=== PATIENT | female | born 1945 | race Caucasian/White ===

== ENCOUNTER 2023-04-10 10:23 | Outpatient (OUT) | payer MEDICARE, SELFPAY ==
--- NOTE | 2023-04-10 10:33 | PM.CN ---
Consult Note: HPI Data of Consult Patient: known to practice within the last 3 years Requesting Physician: Melissa Soni NP Primary Care Provider: Patricia Nicolas MD Consult Narrative Reason for consult: chronic low back and bilateral SIJ pain Narrative: Arianne turpin pleasant 77 year old female presents today for follow up on chronic low back pain, previously managed by Dr Smith. Patient was previously on duloxetine, baclofen, tramadol, R SIJ injections, and lumbar ESIs for pain management. 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 Patient would like to discuss her medication regimen and injection therapy. cc:: CC: Melissa Soni NP Review of Systems ROS Status of ROS 10 or more systems reviewed and unremarkable except as noted in history and below Musculoskeletal Reports: back pain and other (muscle spasms) Exam Constitutional Documenting provider has reviewed patient's vital signs: yes Common normals: no apparent distress, average body habitus, oriented x3, healthy appearing, alert and well nourished General appearance: cooperative HENMT Common normals: normocephalic, hearing grossly normal bilaterally and moist oral mucous membranes Head and scalp: normocephalic Eye Common normals: PERRL Pupil: PERRL Neck & C-Spine Common normals: full ROM General: normal visual inspection Chest Common normals: inspection of chest normal Respiratory Common normals: normal respiratory effort, no retractions and no use of accessory muscles Back & Pelvis Lumbar spine/lower back: ROM limited, pain with ROM and straight leg raise positive right Sacroiliac joints: SI joint(s) abnormal (bilateral positive DEVON, thigh thrust, stephanie test. Worse on right side. ) SI joint details: tender to palpation (R>L) Other: radiculopathy to RLE Extremity Common normals: full ROM Neuro Common normals: oriented x3, CN's II-XII intact bilaterally, moves all extremities, no focal motor deficits, no sensory deficits noted and deep tendon reflexes 2+ bilaterally Sensorium/orientation: alert Gait (neuro): antalgic Motor exam: strength 5/5 throughout and no movement abnormalities noted Psych Common normals: mental status grossly normal, thought process normal, cooperative, affect normal, speech normal and activity/motor behavior normal Speech: normal speech Thought process: normal thought process Results Additional Findings Additional findings: I have checked an OARRS report on this patient today and there are no aberrancies noted in the prescribing history.?? A drug screen was completed and reviewed within the last year, and if there has not been a drug screen completed we ordered one today to monitor higher risk, state monitored pain medication use. As part of providing excellent, safe, comprehensive care, the following was completed at our patient's visit: 1. A medication reconciliation and review to ensure accurate knowledge of current/active medications, including asking our patients to inform us about any [id number] medications or herbal remedies/nutritional supplements/alternative remedies. 2. A review to specifically ensure our patients have had annual screening for: elevated body mass index (BMI), tobacco use, screening for depression, and screening for unhealthy alcohol use. When screening is concerning, patients are provided with education and the specific recommendation to discuss the concerning health issue and treatment options with their primary care provider. MINA 42% with moderate pain, pain that prevents her from lifting heavy weights, pain that prevents her walking more than 0.5 miles, pain that prevents her from sitting more than 30mins, pain that prevents her from standing longer than 10 minutes, pain that restricts social life. 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 Will evaluate at follow up appointments update yearly UDS today order water therapy, previously benefited from continue home exercise program follow up after injections
== END 2023-04-10 10:24 | disposition home or self-care (01) ==
LOC: PM 10:25
PROVIDERS: PCP Family Medicine; Visit Provider Nurse Practitioner
DX: M47.26 Other spondylosis with radiculopathy, lumbar region (principal); M43.8X6 Other specified deforming dorsopathies, lumbar region; M46.1 Sacroiliitis, not elsewhere classified; M81.0 Age-related osteoporosis without current pathological fracture; Z79.899 Other long term (current) drug therapy; M62.838 Other muscle spasm
CPT/HCPCS: 72110; G0463

== ENCOUNTER 2023-04-10 11:15 | Outpatient (OUT) | payer MEDICARE, SELFPAY ==
--- NOTE | 2023-04-10 11:22 | XR_ITS ---
[address] [address] Patient Name: LOBO MURDOCK MRN: [id number] date: 1945 Sex: F Assigned Patient Location: [facility] Current Patient Location: [facility] Accession/Order Number: [id number] Exam Date: 04/10/2023 11:30 Report Date: 04/10/2023 11:59 At the request of: DANIELA FARLEY Procedure: XR lumbar spine min 4V EXAM: XR lumbar spine min 4V HISTORY: Lumbar spondylosis, lumbar radiculopathy COMPARISON: None. TECHNIQUE: 4 views FINDINGS/IMPRESSION: Mild S-shaped convex curvature of the lumbar spine. Anterolisthesis of L4 over L5 by 6 mm. Mild compression deformity of L2 vertebral body. Remainder of the vertebral body heights maintained. Multilevel endplate degenerative changes, disc disease, and facet arthropathy of L3-S1. Nonobstructive bowel gas pattern. Electronically authenticated by: BRITTNEY DAWN Date: 04/10/2023 11:59
== END 2023-04-10 11:16 | disposition home or self-care (01) ==
LOC: RAD 11:17
PROVIDERS: PCP Family Medicine; Visit Provider Nurse Practitioner
DX: M47.26 Other spondylosis with radiculopathy, lumbar region (principal); M43.8X6 Other specified deforming dorsopathies, lumbar region
CPT/HCPCS: 72110

== ENCOUNTER 2023-04-22 09:10 | Day surgery (SDC) | payer MEDICARE, SELFPAY ==
[2023-04-22 10:14] VITALS: BP 138/76; PULSE 80; RESP 14; TEMP 36.8; O2SAT 97
[2023-04-22] MEDS: IOHEXOL 240 MG/ML - 10 ML VIAL 75 MG INJ (10:50)
[2023-04-22] MEDS: TRIAMCINOLONE ACETONIDE 40 MG/ML VIAL INJ (10:50)
[2023-04-22] MEDS: BUPIVACAINE HCL 0.25% PF 25 MG/10 ML VIAL INJ (10:50)
--- NOTE | 2023-04-22 10:52 | W.PM.PROCNOT ---
Date of procedure: 04/22/23 Pre-op diagnosis: Right sacroiliac joint pain Post-op diagnosis: same as pre-op Procedure: Procedure: Block of the nerve innervating the right sacroiliac joint Medications: Bupivacaine 0.25% 3cc, kenalog 80mg After informed consent was obtained, the patient was brought to the medical procedure unit and placed in the prone position, when a timeout was completed verifying correct patient, procedure, site, positioning, implant, and/or special equipment.? The skin overlying the area was prepped and draped in standard sterile fashion using alcohol.? A 25-gauge needle was inserted towards the right nerve innervating the sacroiliac joint under direct fluoroscopic imaging.? Needle tip was advanced until the nerve was encountered.? We instilled a total of 3 mL of solution.? Postoperatively needles were removed.? The patient tolerated the procedure well without complication.? The patient reported reduction in pain symptoms postoperatively. Anesthesia: Local Surgeon: Ara Maier Pathology: none sent Condition: stable Disposition: no change
[2023-04-23 11:12] VITALS: BP 124/57; BP 151/65; PULSE 77; PULSE 86; RESP 18; O2SAT 95; O2SAT 96
== END 2023-04-22 10:57 | disposition home or self-care (01) ==
PROVIDERS: PCP Family Medicine; Visit Provider Anesthesiology
DX: M53.3 Sacrococcygeal disorders, not elsewhere classified (principal)
CPT/HCPCS: 64451; 77002; Q9966

== ENCOUNTER 2023-05-01 07:47 | Outpatient (RCR) | payer MEDICARE, SELFPAY ==
[2023-04-30 11:16] LABS: Calcium 9.5 mg/dL (8.5-10.1); Estimated GFR (African America >60 (>=60); Estimated GFR (Non-African Ame 51 (>=60)
[2023-05-01 09:29] VITALS: BP 123/76; PULSE 90; RESP 16; TEMP 36.7; O2SAT 97
[2023-05-01] MEDS: DENOSUMAB 60 MG/ML SYRINGE SUBQ (09:47)
== END 2023-05-11 23:59 | disposition home or self-care (01) ==
LOC: LAB 07:47
PROVIDERS: PCP Family Medicine; Visit Provider Family Medicine
DX: M81.0 Age-related osteoporosis without current pathological fracture (principal)
CPT/HCPCS: 36415; 82310; 82565; 96372; J0897

== ENCOUNTER 2023-05-06 09:55 | Day surgery (SDC) | payer MEDICARE, SELFPAY ==
[2023-05-06 10:45] VITALS: BP 114/68; PULSE 85; RESP 16; TEMP 36.3; O2SAT 97
[2023-05-06 11:33] VITALS: BP 127/63; PULSE 83; RESP 18; O2SAT 94
[2023-05-06] MEDS: LIDOCAINE HCL 2% PF 100 MG/5 ML VIAL INJ (11:34)
[2023-05-06] MEDS: BUPIVACAINE HCL 0.25% PF 25 MG/10 ML VIAL INJ (11:34)
[2023-05-06] MEDS: IOHEXOL 240 MG/ML - 10 ML VIAL IV (11:34)
[2023-05-06] MEDS: TRIAMCINOLONE ACETONIDE 40 MG/ML VIAL INJ (11:35)
[2023-05-06] MEDS: 0.9 % SODIUM CHLORIDE 10 ML INJ (11:36)
[2023-05-06 11:37] VITALS: BP 131/63; PULSE 85; RESP 18; O2SAT 95
--- NOTE | 2023-05-06 11:38 | W.PM.PROCNOT ---
Date of procedure: 05/06/23 Pre-op diagnosis: Lumbar stenosis with neurogenic claudication Post-op diagnosis: same as pre-op Procedure: Procedure: Lumbar epidural steroid injection, L3-4 Medications: Bupivacaine 0.25% 1cc, normal saline 0.9% 1cc, kenalog 80mg After informed consent was obtained, the patient was brought to the medical procedure unit and placed in the prone position.? The skin overlying the area was prepped and draped in standard sterile fashion using alcohol, after which a 25-gauge needle was used to raise a skin wheal with 2% lidocaine over the appropriately designated interspace identified under fluoroscopy.? Subsequently a 17-gauge Tuohy needle was inserted through anesthetized area and directed toward the above interspace under fluoroscopic guidance, which was identified with loss of resistance technique to air.? Needle tip placement was confirmed by injection of Omnipaque dye, which revealed epidural placement; then 4 mL of steroid solution was then instilled.? Postoperatively, needles were removed.? The patient was transferred to the recovery area in stable condition to be discharged after meeting criteria.? Followup as per treatment plan. Anesthesia: Local Surgeon: Ara Maier Pathology: none sent Condition: stable Disposition: no change
== END 2023-05-06 11:40 | disposition home or self-care (01) ==
PROVIDERS: PCP Family Medicine; Visit Provider Anesthesiology
DX: M48.062 Spinal stenosis, lumbar region with neurogenic claudication (principal)
CPT/HCPCS: 62323; Q9966

== ENCOUNTER 2023-05-29 10:05 | Outpatient (OUT) | payer MEDICARE, SELFPAY ==
--- NOTE | 2023-05-29 10:15 | P.CN_ITS ---
Consult Note: HPI Data of Consult Patient: known to practice within the last 3 years Consult date: 05/29/23 Requesting Physician: Melissa Soni NP Primary Care Provider: Patricia Nicolas MD Consult Narrative Reason for consult: Injection F/u Narrative: Arianne Ko a pleasant 77 year old female presents for evaluation of chronic back pain with NC and right SIJ pain. Recently underwent Right SIJ injection and Lumbar epidural steroid injection at L3-4 with 75% pain relief and functional improvement. Today rating pain 3/10. cc:: CC: Melissa Soni NP Review of Systems ROS Status of ROS 10 or more systems reviewed and unremarkable except as noted in history and below Musculoskeletal Reports: back pain and joint pain PFSH PFSH Medical History Acid reflux ?K21.9 - Gastro-esophageal reflux disease without esophagitis (ICD-10) Heartburn ?R12 - Heartburn (ICD-10) Low back pain ?M54.50 - Low back pain, unspecified (ICD-10) Neck pain ?M54.2 - Cervicalgia (ICD-10) Osteoarthritis ?M19.90 - Unspecified osteoarthritis, unspecified site (ICD-10) Osteopenia ?M85.80 - Other specified disorders of bone density and structure, unspecified site (ICD-10) Surgical History H/O carpal tunnel repair ?Z98.890 - Other specified postprocedural states (ICD-10) H/O section ?Z98.891 - History of uterine scar from previous surgery (ICD-10) H/O shoulder surgery ?Z98.890 - Other specified postprocedural states (ICD-10) H/O wrist surgery ?Z98.890 - Other specified postprocedural states (ICD-10) History of ear, nose, and throat (ENT) surgery ?Z98.890 - Other specified postprocedural states (ICD-10) Meds Home Medications and Allergies Home Medications Medication Instructions Recorded Confirmed Type OSCAL WITH VITAMIN D3 PO BID 04/10/23 History baclofen 10 mg tablet 10 mg PO .HS 04/10/23 05/06/23 History denosumab 60 mg/mL subcutaneous 60 mg subcut .[id number] 04/10/23 05/06/23 History syringe (Prolia) diclofenac sodium 50 mg 50 mg PO BID 04/10/23 05/06/23 History tablet,delayed release duloxetine 30 mg capsule,delayed 30 mg PO QDAY 04/10/23 05/06/23 History release geriatric multivitamin-min cap PO BID 04/10/23 History lidocaine 5 % topical cream 1 applic topical TID PRN pain 04/10/23 05/06/23 History magnesium 200 mg tablet 400 mg PO BID 04/10/23 05/06/23 History omega 1-wnq-sbj-fish oil 1,000 mg 1 cap PO DAILY 04/10/23 05/06/23 History (120 mg-180 mg) capsule (Fish Oil) tramadol 50 mg tablet 50 mg PO BID PRN pain 04/10/23 05/06/23 History Allergies Allergy/AdvReac Type Severity Reaction Status Date / Time No Known Drug Allergies Allergy Verified 05/06/23 10:43 Exam Constitutional Documenting provider has reviewed patient's vital signs: yes Common normals: no apparent distress, oriented x3, healthy appearing, alert and well nourished General appearance: cooperative HENNE Common normals: normocephalic, hearing grossly normal bilaterally and moist oral mucous membranes Head and scalp: normocephalic Eye Common normals: PERRL Pupil: PERRL Neck & C-Spine Common normals: full ROM General: normal visual inspection Chest Common normals: inspection of chest normal Respiratory Common normals: normal respiratory effort, no retractions and no use of accessory muscles Back & Pelvis Lumbar spine/lower back: ROM limited and pain with ROM Sacroiliac joints: SI joint(s) abnormal (bilateral positive DEVON, thigh thrust, stephanie test. Worse on right side. ) SI joint details: tender to palpation (R>L) Extremity Common normals: full ROM Neuro Common normals: oriented x3, CN's II-XII intact bilaterally, moves all extremities, no focal motor deficits, no sensory deficits noted and deep tendon reflexes 2+ bilaterally Sensorium/orientation: alert Gait (neuro): antalgic Motor exam: strength 5/5 throughout and no movement abnormalities noted Psych Common normals: mental status grossly normal, thought process normal, cooperative, affect normal, speech normal and activity/motor behavior normal Speech: normal speech Thought process: normal thought process Results Additional Findings Additional findings: I have checked an OARRS report on this patient today and there are no aberrancies noted in the prescribing history.?? A drug screen was completed and reviewed within the last year, and if there has not been a drug screen completed we ordered one today to monitor higher risk, state monitored pain medication use. As part of providing excellent, safe, comprehensive care, the following was completed at our patient's visit: 1. A medication reconciliation and review to ensure accurate knowledge of current/active medications, including asking our patients to inform us about any xqpm-juv-myesppj medications or herbal remedies/nutritional sup plements/alternative remedies. 2. A review to specifically ensure our patients have had annual screening for: elevated body mass index (BMI), tobacco use, screening for depression, and screening for unhealthy alcohol use. When screening is concerning, patients are provided with education and the specific recommendation to discuss the concerning health issue and treatment options with their primary care provider. Assessment and Plan Assessment and Plan (1) Lumbar radiculopathy: Assessment and Plan: improved after MONSTER (2) Bilateral sacroiliitis: Assessment and Plan: continues to have right SIJ injection (3) Lumbar spondylosis: (4) Chronically on opiate therapy: Assessment and Plan: PRN tramadol without side effects (5) Muscle spasm: Plan increase duloxetine to 60mg QHS continue PRN tramadol and diclofenac continue baclofen 10mg once daily PRN patient did test positive for THC on drug screen, reports she using THC cream to hips and SIJ joints with benefit. Will not increase tramadol dose in the future without cessation of THC products f/u 6 weeks to evaluate duloxetine increase
== END 2023-05-29 10:06 | disposition home or self-care (01) ==
LOC: PM 10:06
PROVIDERS: PCP Family Medicine; Visit Provider Nurse Practitioner
DX: M54.16 Radiculopathy, lumbar region (principal); M46.1 Sacroiliitis, not elsewhere classified; M47.9 Spondylosis, unspecified; Z79.891 Long term (current) use of opiate analgesic; R25.2 Cramp and spasm
CPT/HCPCS: G0463

== ENCOUNTER 2023-07-15 12:19 | Outpatient (OUT) | payer MEDICARE, SELFPAY ==
[2023-07-15 12:32] LABS: Basophils Absolute Auto 0.1 10^3/uL (0.0-0.1); Eosinophils Absolute Auto 0.2 10^3/uL (0.0-0.7); Eosinophils Percent Auto 2.7 % (0.9-7.0); Hematocrit 38.3 % (36.0-48.0); Hemoglobin 12.5 g/dL (12.0-16.0); Immature Granulocytes Abs Auto 0.03 10^3/uL (0.00-0.03); Immature Granulocytes Pct Auto 0.5 % (0.0-0.5); Lymphocytes Absolute Auto 1.6 10^3/uL (1.2-3.8); Mean Corpuscular HGB Conc 32.6 g/dL (29.9-35.2); Mean Corpuscular Hemoglobin 32.1 pg (26.7-34.0); Mean Corpuscular Volume 98.2 fL (81.0-99.0); Mean Platelet Volume 9.5 fL (9.5-13.5); Monocytes Absolute Auto 0.7 10^3/uL (0.3-0.8); Neutrophils Absolute Auto 3.7 10^3/uL (1.4-6.5); Neutrophils Percent Auto 59.8 % (43.0-75.0); Platelet Count 273 10^3/uL (150-450); Red Cell Distribution Width 12.6 % (11.0-15.0); White Blood Count 6.2 10^3/uL (4.0-11.0)
[2023-07-15 12:41] LABS: Anion Gap 12.2; BUN Creatinine Ratio 19.1; Calcium 9.7 mg/dL (8.5-10.1); Carbon Dioxide 28.5 mmol/L (21.0-32.0); Chloride 105 mmol/L (98-107); Estimated GFR (African America >60 (>=60); Estimated GFR (Non-African Ame >60 (>=60); Glucose 86 mg/dL (74-106); Potassium 3.7 mmol/L (3.5-5.1); Sodium 142 mmol/L (136-145)
== END 2023-07-15 12:20 | disposition home or self-care (01) ==
LOC: LAB 12:20
PROVIDERS: PCP Family Medicine; Visit Provider Family Medicine
DX: K52.9 Noninfective gastroenteritis and colitis, unspecified (principal)
CPT/HCPCS: 36415; 80048; 85025

== ENCOUNTER 2023-07-24 11:02 | Outpatient (OUT) | payer MEDICARE, SELFPAY ==
--- NOTE | 2023-07-24 11:52 | PM.CN ---
Consult Note: HPI Data of Consult Patient: known to practice within the last 3 years Consult date: 05/29/23 Requesting Physician: Melissa Soni NP Primary Care Provider: Patricia Nicolas MD Consult Narrative Reason for consult: f/u Narrative: Arianne Ko a pleasant 77 year old female presents for evaluation of chronic right SIJ pain. Today pain is 4-5/10, unfortunately previous injection did not provide sustained relief. She has not noticed any benefit from increase in duloxetine, sparingly utilizes tramadol, finds benefit from baclofen and diclofenac. cc:: CC: Melissa Soni NP Review of Systems ROS Status of ROS 10 or more systems reviewed and unremarkable except as noted in history and below Musculoskeletal Reports: back pain and joint pain PFSH PFSH Medical History Acid reflux ?K21.9 - Gastro-esophageal reflux disease without esophagitis (ICD-10) Heartburn ?R12 - Heartburn (ICD-10) Low back pain ?M54.50 - Low back pain, unspecified (ICD-10) Neck pain ?M54.2 - Cervicalgia (ICD-10) Osteoarthritis ?M19.90 - Unspecified osteoarthritis, unspecified site (ICD-10) Osteopenia ?M85.80 - Other specified disorders of bone density and structure, unspecified site (ICD-10) Surgical History H/O shoulder surgery ?Z98.890 - Other specified postprocedural states (ICD-10) History of ear, nose, and throat (ENT) surgery ?Z98.890 - Other specified postprocedural states (ICD-10) H/O carpal tunnel repair ?Z98.890 - Other specified postprocedural states (ICD-10) H/O wrist surgery ?Z98.890 - Other specified postprocedural states (ICD-10) H/O section ?Z98.891 - History of uterine scar from previous surgery (ICD-10) Meds Home Medications and Allergies Home Medications Medication Instructions Recorded Confirmed Type OSCAL WITH VITAMIN D3 PO BID 04/10/23 History baclofen 10 mg tablet 10 mg PO .HS 04/10/23 05/06/23 History denosumab 60 mg/mL subcutaneous 60 mg subcut .[id number] 04/10/23 05/06/23 History syringe (Prolia) diclofenac sodium 50 mg 50 mg PO BID 04/10/23 05/06/23 History tablet,delayed release duloxetine 30 mg capsule,delayed 30 mg PO QDAY 04/10/23 05/06/23 History release geriatric multivitamin-min cap PO BID 04/10/23 History lidocaine 5 % topical cream 1 applic topical TID PRN pain 04/10/23 05/06/23 History magnesium 200 mg tablet 400 mg PO BID 04/10/23 05/06/23 History omega 1-lra-qzr-fish oil 1,000 mg 1 cap PO DAILY 04/10/23 05/06/23 History (120 mg-180 mg) capsule (Fish Oil) tramadol 50 mg tablet 50 mg PO BID PRN pain 04/10/23 05/06/23 History Allergies Allergy/AdvReac Type Severity Reaction Status Date / Time No Known Drug Allergies Allergy Verified 05/06/23 10:43 Exam Constitutional Documenting provider has reviewed patient's vital signs: yes Common normals: no apparent distress, oriented x3, healthy appearing, alert and well nourished General appearance: cooperative HENMT Common normals: normocephalic, hearing grossly normal bilaterally and moist oral mucous membranes Head and scalp: normocephalic Eye Common normals: PERRL Pupil: PERRL Neck & C-Spine Common normals: full ROM General: normal visual inspection Chest Common normals: inspection of chest normal Respiratory Common normals: normal respiratory effort, no retractions and no use of accessory muscles Back & Pelvis Lumbar spine/lower back: ROM limited and pain with ROM Sacroiliac joints: SI joint(s) abnormal (bilateral positive DEVON, thigh thrust, stephanie test. Worse on right side. ) SI joint details: tender to palpation (R>L) Extremity Common normals: full ROM Neuro Common normals: oriented x3, CN's II-XII intact bilaterally, moves all extremities, no focal motor deficits, no sensory deficits noted and deep tendon reflexes 2+ bilaterally Sensorium/orientation: alert Gait (neuro): antalgic Motor exam: strength 5/5 throughout and no movement abnormalities noted Psych Common normals: mental status grossly normal, thought process normal, cooperative, affect normal, speech normal and activity/motor behavior normal Speech: normal speech Thought process: normal thought process Assessment and Plan Assessment and Plan (1) Sacroiliac joint dysfunction of right side: (2) Sacroiliac joint pain: (3) Muscle spasm: (4) Chronically on opiate therapy: (5) Lumbar spondylosis: Plan decrease duloxetine to 30mg daily, will stop next month as she has not found benefit from this medication continue PRN tramadol 50mg for moderate to severe pain continue HEP, to start aquatherapy soon right sacral/SIJ xray refferal for consideration of SIJ fusion to Dr Nicolas 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
== END 2023-07-24 11:03 | disposition home or self-care (01) ==
LOC: PM 11:14
PROVIDERS: PCP Family Medicine; Visit Provider Nurse Practitioner
DX: M46.1 Sacroiliitis, not elsewhere classified (principal); M53.3 Sacrococcygeal disorders, not elsewhere classified; M62.838 Other muscle spasm; Z79.891 Long term (current) use of opiate analgesic; M47.816 Spondylosis without myelopathy or radiculopathy, lumbar region
CPT/HCPCS: 72202; G0463

== ENCOUNTER 2023-07-24 12:07 | Outpatient (OUT) | payer MEDICARE, SELFPAY ==
--- NOTE | 2023-07-24 12:14 | XR_ITS ---
The [address] [address] Patient Name: LOBO MURDOCK MRN: [id number] date: 1945 Sex: F Assigned Patient Location: [facility] Current Patient Location: [facility] Accession/Order Number: [id number] Exam Date: 07/24/2023 12:16 Report Date: 07/25/2023 13:49 At the request of: DANIELA FARLEY Procedure: XR sacroiliac joint JAMISON EXAM: XR sacroiliac joint JAMISON HISTORY: sacroiliitis COMPARISON: 04/10/2023 TECHNIQUE: 3 views of the sacrum FINDINGS: No acute displaced fracture or dislocation identified. Mild joint space narrowing is present bilaterally. No significant subchondral sclerosis identified bilaterally. The hips appear congruent. Moderate to severe degenerative disc disease the visualized lower lumbar spine. XR/XR sacroiliac joint JAMISON IMPRESSION: Degenerative changes without acute osseous abnormality. Electronically authenticated by: RICARDO HEART Date: 07/25/2023 13:49
== END 2023-07-24 12:08 | disposition home or self-care (01) ==
LOC: RAD 12:09
PROVIDERS: PCP Family Medicine; Visit Provider Nurse Practitioner
DX: M46.1 Sacroiliitis, not elsewhere classified (principal)
CPT/HCPCS: 72202

== ENCOUNTER 2023-08-22 08:00 | Outpatient (OUT) | payer MEDICARE, SELFPAY ==
--- OUTSIDE RECORDS SUMMARY | 2023-08-22 08:03 | XMS_ITS | CCD ---
Author Name Unknown Address [address] [place] [address] Organization [facility] Care Team Providers Care Baker Biscuit Name Role Phone PHYSICIAN, DEFAULT Admitting Unavailable PHYSICIAN, DEFAULT Attending Unavailable ALT-DANIEL, BRINDA Primary Care Unavailable OVIDIO, ARIADNA Cook Admitting Unavailable OVIDIO, ARIADNA Cook Attending Unavailable ALT-DANIEL, BRINDA Referring Unavailable ALT-DANIEL, BRINDA Primary Care Unavailable MATTHEWS ., DR MASSIMO Cook Attending Unavailable SALDAÑA ., MICHELE Consulting Unavailable STANFORD, DR PATRICIA Crain Primary Care Unavailable MATTHEWS ., DR MASSIMO Cook Admitting Unavailable MATTHEWS ., DR MASSIMO Cook Attending Unavailable MATTHEWS ., DR MASSIMO Cook Admitting Unavailable STANFORD, DR PATRICIA Crain Primary Care Unavailable MATTHEWS ., DR MASSIMO Cook Consulting Unavailable MATTHEWS ., DR MASSIMO Cook Attending Unavailable MATTHEWS ., DR MASSIMO Cook Admitting Unavailable MATTHEWS ., DR MASSIMO Cook Consulting Unavailable ABDOULAYE, DR PATRICIA Crain Primary Care Unavailable DENY JACOBSON Consulting Unavailable MATTHEWS ., DR MASSIMO Cook Attending Unavailable MATTHEWS ., DR MASSIMO Cook Admitting Unavailable SALDAÑA ., MICHELE Consulting Unavailable STANFORD, DR PATRICIA Crain Primary Care Unavailable MATTHEWS ., DR MASSIMO Cook Consulting Unavailable MATTHEWS ., DR MASSIMO Cook Attending Unavailable MATTHEWS ., DR MASSIMO Cook Admitting Unavailable ABDOULAYE, DR PATRICIA Crain Primary Care Unavailable MATTHEWS ., DR MASSIMO Cook Attending Unavailable MATTHEWS ., DR MASSIMO Cook Admitting Unavailable SALDAÑA ., MICHELE Consulting Unavailable ABDOULAYE, DR PATRICIA Crain Primary Care Unavailable MATTHEWS ., DR MASSIMO Cook Attending Unavailable MATTHEWS ., DR MASSIMO Cook Admitting Unavailable SALDAÑA ., MICHELE Consulting Unavailable ABDOULAYE, DR PATRICIA Crain Primary Care Unavailable SLADAÑA ., MICHELE Attending Unavailable ABDOULAYE, DR PATRICIA Crain Primary Care Unavailable SALDAÑA ., MICHELE Admitting Unavailable MATTHEWS ., DR MASSIMO Cook Admitting Unavailable ABDOULAYE, DR APTRICIA Crain Primary Care Unavailable MATTHEWS ., DR MASSIMO Cook Attending Unavailable MATTHEWS ., DR MASSIMO Cook Admitting Unavailable MATTHEWS ., DR MASSIMO Cook Consulting Unavailable ABDOULAYE, DR PATRICIA Crain Primary Care Unavailable BYRON ., DR MASSIMO Cook Attending Unavailable ABDOULAYE, DR PATRICIA Crain Consulting Unavailable ABDOULAYE, DR PATRICIA Crain Attending Unavailable ABDOULAYE, DR PATRICIA Crain Admitting Unavailable STANFORD, DR PATRICIA Crain Primary Care Unavailable STANFORD, DR PATRICIA Crain Primary Care Unavailable STANFORD, DR PATRICIA Crain Consulting Unavailable ABDOULAYE, DR PATRICIA Crain Attending Unavailable ABDOULAYE, DR PATRICIA Crain Admitting Unavailable BYRON ., DR MASSIMO Cook Attending Unavailable BYRON ., DR MASSIMO Cook Admitting Unavailable MICHELE ROCK Consulting Unavailable ROBBIE, DR FLANAGAN Primary Care Unavailable BYRON ., DR MASSIMO Cook Admitting Unavailable BYRON ., DR MASSIMO Cook Attending Unavailable ABDOULAYE, DR PATRICIA Crain Primary Care Unavailable BYRON ., DR MASSIMO Cook Consulting Unavailable Abdoulaye, Patricia Unavailable Allergies Allergy Classification Reported Allergen(s) Allergy Type Date of Onset Reaction(s) Facility (2 sources) Calcitonin ([place]) *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 Propensity to adverse reactions Comment:severe weakness [facility] Other Medications Current Medications Medication Drug Class(es) Dates Sig (Normalized) Sig (Original) baclofen 10 mg oral tablet (2 sources) gamma-Aminobutyric Acid-ergic Agonist Start: 10-25-2020 take 1 tablet by mouth once daily at bedtime as needed Baclofen 10 MG 1 tablet as needed Orally Once a day at [facility] for 0 days Oct, Active Citracal Plus - (2 sources) Start: 10-25-2020 Citracal Plus - as directed Orally once a day for 0 days Oct, Active denosumab (2 sources) RANK Ligand Inhibitor Start: 08-13-2019 Prolia 60MG/ML Prolia 60MG/ML, # 0, 08/13/2019, No Refill. Active Subcutaneous for 0 *Pick strength-form from [employer] for eRX* Aug, Active diclofenac sodium 50 mg delayed release oral tablet (2 sources) Nonsteroidal Anti-inflammatory Drug Start: 10-25-2020 take 1 tablet by mouth every twelve hours Diclofenac Sodium 50 MG 1 tablet as needed Orally Twice a day for 0 days Oct, Active erythromycin 0.005 mg/mg ophthalmic ointment (2 sources) Macrolide, Macrolide Antimicrobial Start: 07-06-2023 Erythromycin 5 MG/GM 1 application into the lower eyelid of affected eye right eye 2-3 times per day for 7 days Jun, Active hyoscyamine sulfate 0.125 mg oral tablet (2 sources) take 1 tablet by mouth four times daily as needed Levsin 0.125 MG 1 tablet as needed Orally qid prn for 10 days Active Magnesium (2 sources) Start: 10-25-2020 take 1 tablet by mouth once daily Magnesium 400 MG 1 tablet with a meal Orally Once a day for 0 days *Pick strength-form from [employer] for eRX* Oct, Active Multiple Vitamin (2 sources) take 1 tablet by mouth once daily Multiple Vitamin 1 tablet Orally Once a day Active pantoprazole 40 mg delayed release oral tablet (2 sources) Proton Pump Inhibitor Start: 07-15-2023 take 1 tablet by mouth every twenty-four hours Pantoprazole Sodium 40 MG 1 tablet Orally Once a day for 30 day(s) Jul, Active traMADol hydrochloride 50 mg oral tablet (2 sources) Opioid Agonist Start: 10-25-2020 take 1 tablet by mouth every twenty-four hours traMADol HCl 50 MG 1 tablet as needed Orally Once a day for 0 days Oct, Active Vitamin D3 1000 UNIT (2 sources) take 1 tablet by mouth once daily Vitamin D3 1000 UNIT 1 tablet Orally Once a day Active Problems Active Problems Problem Classification Problem Date Documented Date Episodic/Chronic Esophageal disorders (9 sources) Gastro-esophageal reflux disease with esophagitis; Translations: [Gastro-esophageal reflux disease with esophagitis, without bleeding] Onset: 09-05-2018 Chronic Noninfectious gastroenteritis (1 source) Noninfective gastroenteritis and colitis, unspecified Episodic Nutritional deficiencies (4 sources) Vitamin D deficiency; Translations: [Vitamin D deficiency, unspecified] Onset: 01-19-2015 Chronic Osteoarthritis (2 sources) Osteoarthritis; Translations: [Unspecified osteoarthritis, unspecified site] Onset: 10-28-2013 Chronic Osteoporosis (9 sources) Age-related osteoporosis without current pathological fracture; Translations: [Primary osteoporosis] Onset: 10-28-2013 Chronic Other aftercare (2 sources) 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; Translations: [group home (current) use of bisphosphonates] Episodic Other connective tissue disease (1 source) Muscle weakness (generalized); Translations: [MUSCLE WEAKNESS GENERALIZED] Onset: 02-01-2023 Episodic Other connective tissue disease (1 source) Abnormal posture; Translations: [ABNORMAL POSTURE] Onset: 09-12-2022 Episodic Other nervous system disorders (4 sources) Chronic pain syndrome; Translations: [CHRONIC PAIN SYNDROME] Onset: 09-27-2022 Chronic Other nervous system disorders (1 source) Other abnormalities of gait and mobility; Translations: [OTHER ABNORMALITIES GAIT AND MOBILITY] Onset: 09-12-2022 Episodic Other nervous system disorders (1 source) Unspecified abnormalities of gait and mobility; Translations: [UNS ABNORMALITIES GAIT AND MOBILITY] Onset: 09-12-2022 Episodic Other non-traumatic joint disorders (1 source) Other specified arthritis, right hand; Translations: [OTHER SPECIFIED ARTHRITIS RT HAND] Onset: 02-26-2022 Chronic Other nutritional; endocrine; and metabolic disorders (2 sources) Abnormal weight loss; Translations: [Abnormal weight loss] Episodic Other nutritional; endocrine; and metabolic disorders (1 source) Weight loss; Translations: [Abnormal weight loss] Episodic Other nutritional; endocrine; and metabolic disorders (1 source) Abnormal weight loss; Translations: [Weight loss] Episodic Other skin disorders (2 sources) Alopecia; Translations: [Nonscarring hair loss, unspecified] Episodic Residual codes; unclassified (2 sources) Requires influenza virus vaccination; Translations: [Need for prophylactic vaccination and inoculation, Influenza] Episodic Spondylosis; intervertebral disc disorders; other back problems (16 sources) Other spondylosis with radiculopathy, lumbar region; Translations: [Sacroiliitis, not elsewhere classified] Onset: 02-22-2022 Chronic Syncope (2 sources) Syncope and collapse; Translations: [Syncope and collapse] Episodic Unclassified (2 sources) DX Onset: 04-20-2022 Unclassified (1 source) OTHER LOW BACK PAIN; Translations: [OTHER LOW BACK PAIN] Onset: 09-12-2022 Unclassified (4 sources) LOW BACK PAIN, UNSPECIFIED; Translations: [LOW BACK PAIN, UNSPECIFIED] Onset: 06-25-2022 Unclassified (1 source) CONTACT W/AND (SUSP) EXPOS COVID-19; Translations: [CONTACT W/AND (SUSP) EXPOS COVID-19] Onset: 07-26-2022 Past or Other Problems Problem Classification Problem Date Documented Date Episodic/Chronic Immunizations and screening for infectious disease (2 sources) Vaccination given; Translations: [Encounter for immunization] Onset: 07-10-2017 Episodic Intracranial injury (2 sources) History of traumatic brain injury; Translations: [Personal history of traumatic brain injury] Onset: 08-01-2017 Episodic Malaise and fatigue (2 sources) Malaise and fatigue; Translations: [Other malaise and fatigue] Onset: 07-19-2016 Episodic Other connective tissue disease (4 sources) Other muscle spasm; Translations: [OTHER MUSCLE SPASM] Onset: 07-11-2022 Episodic Other connective tissue disease (1 source) Muscle wasting and atrophy, not elsewhere classified, unspecified site; Translations: [MUSCLE WASTING ATROPHY NEC UNS SITE] Onset: 06-13-2022 Episodic Other lower respiratory disease (2 sources) Dyspnea; Translations: [Other forms of dyspnea] Onset: 07-19-2016 Episodic Spondylosis; intervertebral disc disorders; other back problems (13 sources) Intervertebral disc disorders with radiculopathy, lumbar region; Translations: [Radiculopathy, lumbar region] Onset: 10-28-2013 Episodic Unclassified (1 source) LOW BACK PAIN, UNSPECIFIED; Translations: [LOW BACK PAIN, UNSPECIFIED] Onset: 06-19-2022 Results Test Name Value Interpretation Reference Range Facility CALCIUMon 10-03-2022 Calcium [Mass/Vol] 8.9 mg/dL Normal 8.5-10.1 [facility] Comment on above: Performed By: #### VALERIO MADRIGAL #### [facility] [address] [place] [address] Dr. Dang Grimm CREATININEon 10-03-2022 Creatinine [Mass/Vol] 1.03 mg/dL Critically high 0.55-1.02 [facility] Comment on above: Performed By: #### VALERIO MADRIGAL #### [facility] [address] [address] [address] Dang Grimm EGFR-AF BAHRAINI >60 Normal >=60 [facility] Comment on above: Performed By: #### VALERIO MADRIGAL #### [facility] [address] [place] [address] Dr. Dang Grimm EGFR-NON AF BAHRAINI 52 mL/min/1.73m2 Critically low >=60 [facility] Comment on above: Performed By: #### C VALERIO ADAMS #### [facility] [address] [place], [place] [address] Dr. Dang Grimm Covid-19 PCR ([facility])on SARS-CoV-2 (COVID-19) RNA GENARO+probe Ql (Unsp spec) Not detected Normal NOT DETECTED [facility] Comment on above: Result Comment: This test is not yet approved or cleared by the [place] FDA. When there are no FDA-approved or cleared tests available, and other criteria are met, FDA can make tests available under an emergency access mechanism called an Emergency Use Authorization (EUA). The EUA for this test is supported by the [employer] of Health and Human Service's (HHS's) declaration that circumstances exist to justify the emergency use of in vitro diagnostics for the detection and/or diagnosis of the virus that causes COVID-19. This EUA will remain in effect (meaning this test can be used) for the duration of the COVID-19 declaration justifying emergency of IVDs, unless it is terminated or revoked by FDA (after which the test may no longer be used). When diagnostic testing is negative, the possibility of a false negative should be considered in the context of a patient's recent exposures and the presence of clinical signs and symptoms consistent with SARS-CoV-2. Performed By: #### C VDTB #### [facility] [address] [place] [address] Dr. Dang Grimm ANAon 04-20-2022 OCTAVIA PATTERN SPECKLED Normal [facility] Comment on above: Result Comment: The MELCHOR IFA OCTAVIA Hep-2 test utilizes the indirect fluorescent antibody (IFA) method that has been used extensively for detecting the presence of OCTAVIA in sera of patients with systemic lupus erythematosus (SLE), and other clinically similar connective tissue disorders. In addition, OCTAVIA may be associated with numerous drug-induced lupus syndromes which clinically mimic the spontaneous form of SLE. Positive OCTAVIA may be found in healthy individuals. It is therefore imperative that OCTAVIA results be interpreted in light of the patients clinical condition by medical authority. Performed By: #### 1 0196 #### [facility] [address] OCTAVIA SCREEN 1:40 Normal <1:40,1:40 [facility] Comment on above: Result Comment: Test performed using MELCHOR IFA OCTAVIA Hep-2 Test, a pre-standardized assay designed for the qualitative and semi-quantitative detection of antinuclear antibodies. Performed By: #### 1 0196 #### [facility] [address] [place] [address], [facility] C REACTIVE PROTEINon CRP [Mass/Vol] 2.5 mg/L Normal 0.0-7.[address] [facility] Comment on above: Performed By: #### 6 1405, 63760 #### [facility] [address] [facility]. [address] CBC COMPLETE BLOOD COUNTon 0 04-20-2022 Erythrocyte distribution width (RBC) [Ratio] 12.4 % Normal 11.5-15.0 [facility] Comment on above: Performed By: #### 5 6506, 63319 #### [facility] [address] [place] [place] [address], [facility] Hematocrit (Bld) [Volume fraction] 41.6 % Normal 36.0-45.0 [facility] Comment on above: Performed By: #### 5 6506, 78515 #### [facility] [address] [place] [address], [facility] Hemoglobin (Bld) [Mass/Vol] 13.7 g/dL Normal 12.0-15.0 [facility] Comment on above: Performed By: #### 5 6506, 26139 #### [facility] [address] [place] [address], [facility] MCH (RBC) [Entitic mass] 31.4 pg Normal 27.0-33.0 [facility] Comment on above: Performed By: #### 5 6506, 06436 #### [facility] [address] [place] [address], [facility] MCHC (RBC) [Mass/Vol] 32.9 g/dL Normal 32.0-35.0 [facility] Comment on above: Performed By: #### 5 6506, 89617 #### [facility] [address] [facility] [place] [address], [facility] MCV (RBC) [Entitic vol] 95.2 fL Normal 82.0-98.0 [facility] Comment on above: Performed By: #### 5 6506, 65263 #### [facility] [address] [facility]. [address] Nucleated RBC/100 WBC (Bld) [Ratio] 0 % Normal 0-0 [facility] Comment on above: Performed By: #### 5 6506, 18572 #### [facility] [address] [place] [address], [facility] PLAT CNT 248 10*3/uL Normal 150-400 [facility] Comment on above: Performed By: #### 5 6506, 47005 #### [facility] [address] [place] [address], [facility] RBC (Bld) [#/Vol] 4.37 10*6/uL Normal 3.80-5.00 The [facility] Comment on above: Performed By: #### 5 6506, 50325 #### [facility] [address] [facility] [place] [address], [facility] WBC (Bld) [#/Vol] 5.54 10*3/uL Normal 4.00-10.60 The [facility] Comment on above: Performed By: #### 5 6506, 23559 #### [facility] [address] CERVICAL SPINE 4 OR 5 VIEWSo n 04-20-2022 CERVICAL SPINE 4 OR 5 VIEWS [facility] Department of Radiology [address] [place] [id number] ===== Patient Name: LOBO MURDOCK : 1945 Sex: F Age: Race: White Pt. Location: [facility] Patient Status: O Ordered Date: 04/20/2022 10:50:00 AM Completed Date: 04/20/2022 11:42 AM Requesting Provider: MICHAEL HAHN Attending Provider: ARIADNA NOLAN Report Copy To: Signs & Symptoms: M54.2 Cervicalgia I10 History: [place] Comments: Views (X-RAY, CERVICAL SPINE): AP, Lateral, Odontoid, Flexion, Extension Exam: CERVICAL SPINE 4 OR 5 VIEWS ===== CERVICAL SPINE 4 OR 5 VIEWS 04/20/2022 11:42 AM CLINICAL INDICATIONS: M54.2 Cervicalgia I10 TECHNOLOGIST COMMENTS: Patient complains of neck pain and bilateral hand pain for years. Hand pain is worse last couple of months. QUESTION FOR THE RADIOLOGIST: Views (X-RAY, CERVICAL SPINE): AP, Lateral, Odontoid, Flexion, Extension PROTOCOL: AP,Odontoid, Lateral, Flexion and Extension views. COMPARISON: None FINDINGS: 1 mm motion of anterolisthesis of C2 on C3 best seen on flexion. Severe loss of disc space at C3-C4 C4-C5 with endplate spurring and marginal sclerosis. C1-C2 and satisfactory. Occipital condyles unremarkable. IMPRESSION: Advanced multilevel osteoarthritis with subtle anterolisthesis and motion of C2 on C3 Electronically signed: Christian Upton. Transcribed by: [email or web address], User Resident: Electronically Signed by: CHRISTIAN UPTON @ 04/20/2022 02:33 PM Normal The [facility] Comment on above: Order Comment: Views (X-RAY, CERVICAL SPINE): AP, Lateral, Odontoid, Flexion, Extension COMP METABOLIC PANELon 04-20 Albumin [Mass/Vol] 4.1 g/dL Normal 3.5-5.7 [facility] Comment on above: Performed By: #### 3 5515, 42898, 89831 #### [facility] [address] [place] [address], [place] ALKALINE PHOSPH 63 IU/L Normal 34-104 The [facility] Comment on above: Performed By: #### 3 5515, 79261, 10106 #### [facility] [address] [place] [address], [place] ALT [Catalytic activity/Vol] 15 U/L Normal 7-52 [facility] Comment on above: Performed By: #### 3 5515, 11867, 79523 #### [facility] [address] [place] [address], [place] AST [Catalytic activity/Vol] 22 U/L Normal 13-39 [facility] Comment on above: Performed By: #### 3 5515, 22527, 56930 #### [facility] [address] [place] [address], [place] Bilirubin [Mass/Vol] 0.5 mg/dL Normal 0.3-1.0 [facility] Comment on above: Performed By: #### 3 5515, 72292, 78971 #### [facility] [address] [place] [address], [place] Calcium [Mass/Vol] 10.2 mg/dL Normal 8.6-10.3 [facility] Comment on above: Performed By: #### 3 5515, 64678, 25847 #### [facility] [address] [place] [address], [place] Chloride [Moles/Vol] 105 mmol/L Normal 98-107 [facility] Comment on above: Performed By: #### 3 5515, 70742, 56528 #### [facility] [address] [place] [address], [place] CO2 [Moles/Vol] 25 mmol/L Normal 21-31 The [facility] Comment on above: Performed By: #### 3 5515, 53089, 25058 #### [facility] [address] [place] [address], [place] Creatinine [Mass/Vol] 0.95 mg/dL Normal 0.60-1.20 [facility] Comment on above: Performed By: #### 3 5515, 65117, 14485 #### [facility] [address] [place] [address], [place] GFR/1.73 sq M.predicted among non-blacks MDRD (S/P/Bld) [Vol rate/Area] mL/min/{1.73_m2} Normal >60 [facility] Comment on above: Result Comment: The [facility]'s estimated glomerular filtration rate (eGFR) will no longer include consideration of race in its calculation. The National Kidney Foundation's eGFR Task Force developed new recommendations for the estimation of the glomerular filtration rate in the [place] They recommend immediate implementation of the new equation refit without the race variable in all laboratories because the calculation does not include race. In addition to not including race in the calculation and reporting, it included diversity in its development, and has acceptable performance characteristics and potential consequences that do not disproportionately affect any one group of individuals. Performed By: #### 3 5515, 07078, 63434 #### [facility] [address] [place] [address], [place] Glucose [Mass/Vol] 88 mg/dL Normal 70-100 [facility] Comment on above: Performed By: #### 3 5515, 75146, 38418 #### [facility] [address] [place] [address], [place] Potassium [Moles/Vol] 4.5 mmol/L Normal 3.5-5.1 [facility] Comment on above: Performed By: #### 3 5515, 80625, 10528 #### [facility] [address] [place] [address], [facility] Protein [Mass/Vol] 6.8 g/dL Normal 6.0-8.3 [facility] Comment on above: Performed By: #### 3 5515, 29027, 38672 #### [facility] [address] [place] [address], [facility] Sodium [Moles/Vol] 138 mmol/L Normal 136-145 [facility] Comment on above: Performed By: #### 3 5515, 07249, 76480 #### [facility] [address] Urea nitrogen [Mass/Vol] 29 mg/dL High 7-25 [facility] Comment on above: Performed By: #### 3 5515, 56658, 13638 #### [facility] [address] CYCLIC CITRULLINATED PEPTIDE [place] [id number] 04-20-2022 CYCLIC CIT PEP 2 Units Normal 0-[address] [facility] Comment on above: Result Comment: INTE RPRETIVE INFORMATION: Cyclic Citrullinated Peptide Antibody, IgG 19 Units or less ................... Negative 20-39 Units ........................ Weak Positive 40-59 Units ........................ Moderate Positive 60 Units or greater ................ Strong Positive Anti-cyclic citrullinated peptide (anti-CCP), IgG antibodies are present in about 69-83 percent of patients with rheumatoid arthritis (RA) and have specificities of 93-95 percent. These autoantibodies may be present in the preclinical phase of disease, are associated with future RA development, and may predict radiographic joint destruction. Patients with weak positive results should be monitored and testing repeated. Performed By: [facility] [address] [place] [address] Business Management Consultant: Brett Tamez MD, PhD FERRITINon 04-20-2022 Ferritin [Mass/Vol] 43 ng/mL Normal 11-307 The [facility] Comment on above: Performed By: #### 3 5515, 30135, [address] #### [address] HAND LEFT 3 VWSon 04-20-2022 HAND LEFT 3 VWS [facility] Department of Radiology [address] [place] [id number] ===== Patient Name: LOBO MURDOCK : 1945 Sex: F Age: Race: White Pt. Location: [facility] Patient Status: O Ordered Date: 04/20/2022 10:50:00 AM Completed Date: 04/20/2022 11:42 AM Requesting Provider: MICHAEL HAHN Attending Provider: ARIADNA NOLAN Report Copy To: Signs & Symptoms: M79.641 Pain in right hand I10 History: Chloe Comments: Evaluate Exam: HAND LEFT 3 VWS ===== HAND LEFT 3 VWS 04/20/2022 11:42 AM CLINICAL INDICATIONS: M79.641 Pain in right hand I10 TECHNOLOGIST COMMENTS: Patient complains of neck pain and bilateral hand pain for years. Hand pain is worse last couple of months. QUESTION FOR THE RADIOLOGIST: Evaluate PROTOCOL: AP,Lateral and Oblique views were obtained. COMPARISON: None FINDINGS: Severe degenerative change at the first left carpometacarpal joint. Mild soft tissue swelling at multiple PIP joints. No malalignment or acute fracture. IMPRESSION: Severe degenerative change at the first left carpometacarpal joint. No acute bony pathology. Approved by:Nirmala Vergara04/20/2022 11:49 AM. I, Chelita Lazcano,have reviewed the image(s) and agree with the findings in this report. Electronically signed: Chelita Lazcano. Transcribed by: [email or web address], User Resident: NIRMALA MONGE Electronically Signed by: CHELITA LAZCANO @ 04/20/2022 01:29 PM I personally read this/these film(s) with this resident Normal [facility] Comment on above: Order Comment: Evalu ate HAND RIGHT [address] [facility] 2 HAND RIGHT 3 [facility] Department of Radiology [address] [place] [id number] ===== Patient Name: LOBO MURDOCK : 1945 Sex: F Age: Race: White Pt. Location: [facility] Patient Status: O Ordered Date: 04/20/2022 10:50:00 AM Completed Date: 04/20/2022 11:42 AM Requesting Provider: MICHAEL HAHN Attending Provider: ARIADNA NOLAN Report Copy To: Signs & Symptoms: M79.641 Pain in right hand I10 History: [place] Comments: Evaluate Exam: HAND RIGHT 3 [facility] ===== HAND RIGHT 3 [facility] 04/20/2022 11:42 AM CLINICAL INDICATIONS: M79.641 Pain in right hand I10 TECHNOLOGIST COMMENTS: Patient complains of neck pain and bilateral hand pain for years. Hand pain is worse last couple of months. QUESTION FOR THE RADIOLOGIST: Evaluate PROTOCOL: AP,Lateral and Oblique views were obtained. COMPARISON: XR right wrist 04/18/2007 FINDINGS: Degenerative changes at the first carpometacarpal and triscaphe joints. Positive ulnar variance and subchondral cystic change of the distal ulna. Horizontal area of sclerosis in the distal radius compatible with history of nondisplaced fracture. Degenerative changes at the distal radial ulnar junction. No malalignment or acute fracture. IMPRESSION: Degenerative changes at the first carpometacarpal and triscaphe joints. No acute bony pathology. Approved by:Nirmala Vergara04/20/2022 11:52 AM. I, Chelita Lazcano,have reviewed the image(s) and agree with the findings in this report. Electronically signed: Chelita Lazcano. Transcribed by: [email or web address], User Resident: NIRMALA MONGE Electronically Signed by: CHELITA LAZCANO @ 04/20/2022 01:43 PM I personally read this/these film(s) with this resident Normal [facility] Comment on above: Order Comment: Evalu ate RHEUMATOID FACTOR SERUMon RA <20 Normal 0-20 [facility] Comment on above: Performed By: #### 6 1405, [id number] #### [facility] [address] [place] [address], [facility] SEDIMENTATION RATEon 022 SED RATE 38 mm/hr High 0-20 [facility] Comment on above: Performed By: #### 5 [id number], [id number] ####[facility] [place] [address], [facility] TIBC- INCLUDES IRONon 2021 FE SATURATION 30 % Normal 20-50 [facility] Comment on above: Performed By: #### 3 5515, [id number], [id number] #### [facility] [address] [place] [address], [facility] Iron [Mass/Vol] 115 ug/dL Normal 50-212 [facility] Comment on above: Performed By: #### 3 5515, [id number], [id number] #### [facility] [address] [place] [address], [facility] TIBC 378 mcg/dL Normal 250-450 [facility] Comment on above: Performed By: #### 3 5515, 19076, [id number] #### [facility] [address] [facility] [place] [address], [facility] UIBC 263 mcg/dL Normal 155-355 [facility] Comment on above: Performed By: #### 3 5515, 69735, 89600 #### [facility] [address] CALCIUMon 04-09-2022 Calcium [Mass/Vol] 9.6 mg/dL Normal 8.5-10.1 [facility] Comment on above: Performed By: #### VALERIO MADRIGAL #### [facility] [address] [address] [address] Dang Grimm CREATININEon 04-09-2022 Creatinine [Mass/Vol] 1.07 mg/dL Critically high 0.55-1.02 [facility] Comment on above: Performed By: #### VALERIO MADRIGAL #### [facility] [address] [address] [address] Dang Grimm EGFR-AF BAHRAINI >60 Normal >=60 [facility] Comment on above: Performed By: #### VALERIO MADRIGAL #### [facility] [address] [address] [address] Dang Grimm EGFR-NON AF BAHRAINI 50 mL/min/1.73m2 Critically low >=60 [facility] Comment on above: Performed By: #### VALERIO MADRIGAL #### [facility] [address] [address] [address] Dang Grimm Vital Signs Date Time Vital Sign Value Performing Clinician Facility 07-15-2023 11:30-0500 Body height 157.48 cm Patricia Stanford Other [facility] Other 07-15-2023 11:30-0500 Body mass index (BMI) [Ratio] 21.73 kg/m2 Patricia Stanford Other [facility] Other 07-15-2023 11:30-0500 Body weight 53.89 kg Patricia Stanford Other [facility] Other 07-15-2023 11:30-0500 Diastolic blood pressure 78 mm[Hg] Patricia Stanford Other [facility] Other 07-15-2023 11:30-0500 Systolic blood pressure 148 mm[Hg] Patricia Stanford Other [facility] Other Encounters Encounter Date Encounter Type Care Provider Facility Start: 07-15-2023 End: 07-15-2023 ambulatory Patricia Stanford Other [facility] Other Start: 07-15-2023 Office outpatient vi sit 15 minutes Patricia Stanford [facility] Start: 07-15-2023 Telephone encounter Patricia Stanford [facility] Start: 10-03-2022 End: 10-05-[address] PATRICIA STANFORD Facility:[facility] Start: 09-27-2022 End: 09-28-[address] MASSIMO MATTHEWS . Facility:[facility] Start: 09-11-2022 End: 09-11-[address] MASSIMO MATTHEWS . Facility:[facility] Start: 09-07-2022 End: 10-17-[address] MASSIMO MATTHEWS . Facility:[facility] Start: 09-04-2022 End: 09-05-[address] MASSIMO MATTHEWS . Facility:[facility] Start: 07-26-2022 Encounter for preprocedural laboratory examination DR MASSIMO MATTHEWS . [facility] Start: 07-24-2022 End: 07-24-[address] MASSIMO MATTHEWS . Facility:[facility] Start: 07-20-2022 End: 07-21-[address] MASSIMO MATTHEWS . Facility:[facility] Start: 07-20-2022 End: 07-21-2022 Encounter for preprocedural laboratory examination DR MASSIMO MATTHEWS . Facility:[facility] Start: 07-11-2022 End: 07-12-[address] MASSIMO MATTHEWS . Facility:[facility] Start: 06-19-2022 End: 06-19-[address] MASSIMO MATTHEWS . Facility:[facility] Start: 06-06-2022 End: 06-07-[address] MASSIMO MATTHEWS . Facility: Start: 04-20-2022 End: 04-21-2022 ambulatory ARIADNA NOLAN Facility:[facility] Start: 04-09-2022 End: 04-10-[address] PATRICIA STANFORD Facility: Start: 02-27-2022 End: 02-28-2022 ambulatory DEFAULT PHYSICIAN Facility:[facility] Start: 02-22-2022 End: 02-23-[address] MASSIMO MATTHEWS . Facility: Start: 12-06-2021 ambulatory MICHELE SALDAÑA . Facility:[facility] Start: 11-30-2021 End: 12-01-[address] MASSIMO MATTHEWS . Facility: Start: 10-25-2020 Pre-procedure evalua tion check Patricia Stanford Other [facility] Other Procedures Date Procedure Procedure Detail Performing Clinician Start: 07-10-2017 Screening mammography M nathanverna Stanford Other Start: 07-19-2016 General examination of patient Patricia Stanford Other Immunizations Immunization Date Immunization Notes Care Provider Fa cility 05-17-2022 zoster vaccine, live Patricia Stanford Other [facility] Other 04-23-2022 influenza virus vaccine, split virus (incl. purified surface antigen) Patricia Stanford Other [facility] Other 04-23-2022 pneumococcal polysaccharide vaccine, 23 valent Patricia Stanford Other [facility] Other 04-23-2022 tetanus toxoid, adsorbed Patricia Stanford Other [facility] Other 05-25-2021 influenza virus vaccine, split virus (incl. purified surface antigen) Patricia Stanford Other [facility] Other 10-18-2020 COVID-19 Vaccine Moderna - Documentation Purposes Only Patricia Stanford Other [facility] Other 09-19-2020 COVID-19 Vaccine Moderna - Documentation Purposes Only Patricia Stanford Other [facility] Other 04-16-2020 influenza virus vaccine, split virus (incl. purified surface antigen) Patricia Stanford Other [facility] Other 05-12-2019 influenza virus vaccine, split virus (incl. purified surface antigen) Patricia Stanford Other [facility] Other 04-18-2018 influenza virus vaccine, split virus (incl. purified surface antigen) Patricia Stanford Other [facility] Other 07-10-2017 pneumococcal conjuga te vaccine, 13 valent Patricia Stanford Other [facility] Other 04-18-2017 influenza virus vaccine, split virus (incl. purified surface antigen) Patricia Stanford Other [facility] Other 05-09-2016 influenza virus vaccine, split virus (incl. purified surface antigen) Patricia Stanford Other [facility] Other 05-27-2013 tetanus and diphther ia toxoids, adsorbed, preservative free, for adult use (5 Lf of tetanus toxoid and 2 Lf of diphtheria toxoid) Patricia Stanford Other [facility] Other 12-24-2011 pneumococcal polysaccharide vaccine, 23 valent Patriciaverna Stanford Other [facility] Other Payers Date Payer Category Payer Medicare [id number] 1958 Unknown [id number] 1945 Unknown [id number] 2.16.8 [id number] 1945 Unknown [id number] 2.16.8 [id number] 1945 Unknown [id number] 2.16.84 0.1.675387.3.579.2.593 1945 Unknown [id number] 2.16.84 0.1.735351.3.579.2.593 1945 Unknown [id number] 2.16.84 0.1.508516.3.579.2.593 1945 Unknown [id number] 2.16.84 0.1.795218.3.579.2.593 1945 Unknown [id number] 2.16.84 0.1.855381.3.579.2.593 1945 Unknown [id number] 2.16.84 0.1.604761.3.579.2.593 1945 Unknown [id number] 2.16.84 0.1.000351.3.579.2.593 1945 Unknown [id number] 2.16.84 0.1.412206.3.579.2.593 1945 Unknown [id number] 2.16.84 0.1.852060.3.579.2.593 1945 Unknown [id number] 2.16.84 0.1.339150.3.579.2.593 1945 Unknown [id number] 2.16.84 0.1.742845.3.579.2.593 1945 Unknown [id number] 2.16.84 0.1.155917.3.579.2.593 1945 Unknown [id number] 2.16.84 0.1.797917.3.579.2.593 1945 Unknown [id number] 2.16.84 0.1.583146.3.579.2.593 Unknown Social History Date Type Detail Facility Unknown if ever smoked [facility] Other Sex Assigned At Sex Assigned At Bir th [facility] Other Clinical Notes 11-30-2021 to 07-15-2023 Note Date & Type Note Facility 07-15-2023 Evaluation note Encounter Date Diagnosis Assessment Notes Jul, Chronic diarrhea (ICD-10 - K52.9) Will check labs to r/o hypokalemia or dehydration. Agrees to referral to GI. Denies travel out of country or blood in stool. Denies recent antibiotics. Jul, Gastroesophageal reflux disease without esophagitis (ICD-10 - K21.9) Has been taking pepcid qpm prn. Will change to daily Pantoprazole. Jul, Age-related osteoporosis without current pathological fracture (ICD-10 - M81.0) Due for Dexa 08/2023 [facility] Other 02-16-2023 NoteCONSULTATION CONSULTATION DATE: 09/27/2022 HISTORY OF PRESENT ILLNESS: This is a 76-year-old female who returns to the clinic status post LES on 09/11/2022. The patient states she was afforded between 50-60% relief. Depending on her physical activity, determines her level of comfort. 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 She currently is in physical therapy and aqua therapy and feels its benefits, but once she is out of the pool, the pain does return. Medications include diclofenac 50 mg b.i.d., baclofen 10 mg q.h.s. and tramadol 50 mg t.i.d. Currently, she does take it b. i.d, but has the third available if needed. Patient is currently helping to care for her , who has increasing dementia. She does rate her pain 4/10 today with radiating pain to bilateral toes. Patient's REVIEW OF SYSTEMS / PAST MEDICAL HISTORY / ALLERGIES and IMAGES have been reviewed and noted on the chart. PHYSICAL EXAM: VITAL SIGNS: Blood pressure is 155/78. Heart rate is 106. She is 5'3 , weighs 58.7 kg. GENERAL IMPRESSION: Pleasant, appropriate, notably uncomfortable in the chair, but in no acute distress. FOCUSED EXAM - BACK: Range of motion is guarded in lateral rotation and flexion/extension. Paravertebral muscles are non-spasmodic. Jose's point mildly tender but is non-radiating. Upon compression, patient does have radiating pain down posterior aspect of her left leg to the level of the foot and toes. MUSCULOSKELETAL: Motor is intact, 4/5 bilaterally. No overt motor weakness noted, but slight decline in the right anterior tibialis. Extensors are intact. Patient does walk unassisted with a stable gait. NEUROLOGICALLY: Stocking distribution hypoesthesia noted along the L4-L5 distribution to the level of the dorsum of the foot and toes. Patient is cognitively intact with intact cranial nerves. Bilateral lower extremity reflexes are 1/2. DIAGNOSIS: Chronic pain syndrome, lumbar neuritis, lumbar degenerative disc disease and lumbar spondylosis. PLAN: The patient is to continue her current medications with no changes in dose or frequency. Physical therapy will continue. We will start her on Cymbalta 30 mg daily. Patient is to call the clinic for a phone follow up in four weeks. At that time, we will determine efficacy of her dose. Patient is in agreement with this plan.[facility] [id number] NoteCONSULTATION CONSULTATION DATE: 09/04/2022 HISTORY OF PRESENT ILLNESS: This is a very pleasant, 76-year-old female who has chronic low back pain. The patient, with the change and weather, finds the pain aggravating. The patient is a very active individual. She states the pain is in her mid back with a radiating pain into the right leg. She rates the pain as a 3/10; an achy, pressure sensation. Pain is worse in the morning. Getting up out of bed, standing too long, housework, lifting, bending, climbing stairs aggravate the pain. Sleep disturbances are noted by the patient. The patient states the majority of the pain is in the lower lumbar region. The patient takes diclofenac 50 mg b.i.d., tramadol 50 mg usually b.i.d.; it has been ordered t.i.d. The patient also takes baclofen 10 mg h.s., not sure whether it is helping her; however, we have educated her to maintain this, especially during winter. The patient's PAST MEDICAL HISTORY / SURGICAL HISTORY / REVIEW OF SYSTEMS are noted on the chart, along with the MEDICATION LIST, ALLERGIES and RADIOLOGICAL IMAGES. The patient is status post rhizotomy radiofrequency ablation along the right SI, which afforded the patient 90% improvement of that pain. PHYSICAL EXAM: Upon physical examination, this is a pleasant, cooperative female, who does not appear to be in any acute distress. VITAL SIGNS: 138/71 with a heart rate of 73. At a height of 5'3 , the patient weighs 58 kg. HEAD: Atraumatic, normocephalic. NECK: Range of motion is intact. HEART: Negative orthopnea. LUNGS: Negative dyspnea. ABDOMEN: Soft, non-distended. BACK: Rotatory changes are noted along the thoracic spine. Extension helps the patient and in a generalized discomfort in the thoracic region. With regards to her low back, the patient has sensitivity in the interspinous region, along the L4-L5, L5-S1 interspinous space. EXTREMITIES: No pedal edema. MUSCULOSKELETAL: Intact in the lower extremities at 5/5 bilaterally. NEUROLOGICALLY: Hypoesthesia is noted along the L5 distribution on the right hand side. PSYCHIATRICALLY: Affect is appropriate. IMPRESSION: Lumbar neuritis, lumbar degenerative disc disease as noted also on the radiological images, lumbar spondylosis. PLAN: We will schedule the patient for a lumbar epidural steroid injection under fluoroscopy. The patient will simultaneously have an aquatic program three times a week for 12 weeks. The patient understands and would like to proceed.[facility] [id number] NoteCONSULTATION CONSULTATION DATE: 07/11/2022 HISTORY OF PRESENT ILLNESS: This is a very pleasant and active, 76-year-old female returning to the clinic status post right SI joint injection completed on 06/19/2022. The patient was afforded 75% relief and is ongoing. At rest, her pain is 1/10; with activity such as standing, walking, lying, bending and physical activity her pain will increase to 5/10. She has had an ablation in the past, approximately one year ago, which greatly benefited her. She is inquiring about a repeat today. Medications include baclofen 10 mg q.h.s. and tramadol 50 mg b.i.d., as well as a multivitamin regimen. Patient's REVIEW OF SYSTEMS / PAST MEDICAL HISTORY / ALLERGIES and IMAGES have been reviewed and they are noted on the chart. PHYSICAL EXAM: VITAL SIGNS: Blood pressure 137/77, heart rate is 52. Temperature is 97.3. She is 5'2 , weighs 126 pounds. GENERAL IMPRESSION: Pleasant, appropriate, no acute distress. FOCUSED EXAM - BACK: Range of motion is functional in lateral rotation and flexion/extension. Paravertebral muscles are taut with trigger points identified bilaterally, at the level of L4, L5. Positive jump response to palpation which reproduces the patient's symptomatology today. Jose's point is positive bilaterally, grossly more to the right with a positive jump response. Pain does radiate to bilateral hips and to the right groin, indicative of sacroiliitis. Slight radiating pain to bilateral anterior thighs. FABERs, compression and thigh thrust test is positive. MUSCULOSKELETAL: Motor is intact, 4/5 bilaterally. No vasomotor weakness noted. Gait is steady and patient does not use assistive device. NEUROLOGICAL: Negative polyneuropathy. Patient is cognitively intact. +2 bilateral patellar reflexes. DIAGNOSIS: Right sacroiliitis, lumbar paravertebral spasms, lumbar degenerative disc disease and lumbar spondylosis. PLAN: We will repeat right sided radiofrequency ablation. She will also receive bilateral lumbar trigger point injections in the clinic, which she does consent to today. She is to continue with her medication at the prescribed dose and frequency. She will be followed up in the clinic post procedure.[facility] [id number] NoteCONSULTATION PROCEDURE DATE: 07/11/2022 PREOPERATIVE DIAGNOSIS: Bilateral lumbar erector spinae paravertebral spasms. POSTOPERATIVE DIAGNOSIS: Bilateral lumbar erector spinae paravertebral spasms. PROCEDURE: Bilateral lumbar trigger point injections. Subsequent to obtaining informed consent, the patient was placed in the upright standing forward flexion position. Alcohol prep was used to sterilize the site. A 25 gauge needle with 0.125% Marcaine, 40 mg of Kenalog was divided into two locations. Needle was placed to rest inside the trigger zone. Negative heme. Medication was injected in a slow, fan-like pattern and patient tolerated the procedure well. She will be followed up in the clinic.[facility] 06-06-2022 NoteCONSULTATION CONSULTATION DATE: 06/06/2022 HISTORY OF PRESENT ILLNESS: This is a very pleasant, 76-year-old female returning to the clinic for a four month follow up for chronic lower back pain and right buttock pain. The patient had lumbar radiofrequency ablations in October of 2021 in addition to a former right SI injection. The patient did remarkably well with both procedures. She presents today with pain 3/10 at rest, 5/10 with activity to her right buttock area. It is aggravated by standing, walking and prolonged sitting. She feels it is the beginning of her SI pain returning. 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 Current medications include tramadol 50 mg t.i.d. , baclofen 10 mg q.h.s. and diclofenac 50 mg b.i.d. The patient has an appointment pending with Dr. Velazquez for a right thumb joint injection. Patient's REVIEW OF SYSTEMS / PAST MEDICAL HISTORY / ALLERGIES and IMAGES have been reviewed and they are noted on the chart. PHYSICAL EXAM: VITAL SIGNS: Blood pressure 133/73, heart rate is 73. Temperature is 97.8. She is 5'2 , weighs 57.5 kg. GENERAL IMPRESSION: Pleasant, appropriate, no acute distress. FOCUSED EXAM - BACK: Range of motion is functional in lateral rotation and flexion/extension. Jose's point is tender to the right with positive jump response. Pain does radiate to the hip and to the groin, indicative of right sacroiliitis. FABERs, thigh thrust and compression tests are positive. MUSCULOSKELETAL: Muscle atrophy noted diffusely throughout. She does walk without an assistive device with a slow, steady gait. NEUROLOGICALLY: Radicular sensory is intact. Negative polyneuropathy. DIAGNOSIS: Right sacroiliitis, muscle atrophy and lumbar spondylosis. PLAN: Patient will have a right SI joint injection and will have testosterone cypionate 75 mg injection at that time. A refill for her tramadol and baclofen will be given at the set dose and frequency. I did recommend for patient's complaint of fatigue that she will add a B Complex vitamin. We will do a series of three testosterone injections with the first one being post procedure, second one being at her follow up and the third one two weeks thereafter. Patient agrees with this plan of care and will follow up at her post procedure visit.[facility] [id number] NoteCONSULTATION CONSULTATION DATE: 02/22/2022 This is a pleasant 76-year-old female returning to the clinic for a 3-month follow-up for her chronic lower back pain. The patient had radiofrequency ablation series concluded in October of 2021 and had a long-term recovery. She is having increased pain during her last appointment which was in November. Today she does report significant relief and with activity his pain is one out of 10. Her ablation was a repeat of that area and was found that it took her a longer time to recover this second round. Activity that does aggravate her pain are stairs, bending, pushing and pulling. The use of heat and lying down increases her comfort. She is complaining to me of right first knuckle pain. She recently lost a sister due to rheumatoid arthritis and is concerned about polyarthralgia. Her daughter does have psoriatic arthritis. Current medications include Tramadol t.i.d., p.r.n., Tylenol, diclofenac 50 mg b.i.d. and Voltaren gel. She does receive Prolia injections and her last DEXA scan was negative at 4.3 in the lumbar region. 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 REVIEW OF SYSTEMS, PAST MEDICAL HISTORY, ALLERGIES AND IMAGES: Have been reviewed and noted in the chart. PHYSICAL EXAM: VITAL SIGNS: Blood pressure 138/68, heart rate is 82, temperature is 97.7. Height is 5'3 , weighs 64 kg.. GENERAL APPEARANCE: Pleasant and appropriate. No acute distress. FOCUSED EXAM: BACK: Range of motion is functional in lateral rotation and flexion/extension. There is no reproduction of spinoaxial pain suggestive of successful RFAs. Paravertebral muscles are non-spasmodic. Jose's point is nontender. MUSCULOSKELETAL: Motor is intact, 4 out of 5 bilaterally. Decent muscle tone. The patient walks with a stable gait. Does not use an assistive device. Upper extremities: Right first knuckle edematous and tender to palpation. NEUROLOGICAL: Radicular sensory is intact. Negative polyneuropathy. DIAGNOSIS: Lumbar degenerative disk disease, lumbar spondylosis and polyarthralgia. PLAN: Did suggest for the patient to use a mix of Voltaren gel with Vicks VapoRub to her right hand, particularly to the first knuckle. We will re-set her on Baclofen 10 mg q.h.s. A referral to rheumatology near [place] will be sent on her behalf and I highly encouraged her to seek consultation, particularly since she has a familial history of autoimmune diseases. The patient agrees with the plan of care and will be followed up in the office in three months' time. [facility] Signed and Approved by: MICHELE SALDAÑA . 03/02/2022 14:16:00[facility]04-21-2022 NoteCONSULTATION Consultation Date:11/30/2021 PREOPERATIVE DIAGNOSIS: Right gluteal spasm. POSTOPERATIVE DIAGNOSIS: Right gluteal spasm. PROCEDURE: Right gluteal trigger point injection. Subsequent to obtaining informed consent, the patient was placed in the upright, standing, forward flexion position. Alcohol prep was used to sterilize the site. A 25 gauge needle with 0.125 % Marcaine and 40 mg of Kenalog was used to inject the trigger point. Negative heme. Medications injected in a fan-like position. Patient tolerated procedure well and will be followed up in the office. IF Signed and Approved by: MICHELE SALDAÑA . 12/06/2021 16:15:00[facility]04-21-2022 NoteCONSULTATION Consultation Date:11/30/2021 PAIN MANAGEMENT CONSULTATION HISTORY OF PRESENT ILLNESS: This is a pleasant and active, 76-year-old female who returns to the clinic status post bilateral lumbar RFA of L3, L4, L5 with her last procedure done on 10/31/2021. The patient reports 75% relief in both areas. She is complaining of an area in her right gluteal region which is painful. She feels that it is a spasm. She is reporting bilateral leg weakness, but that is not a new pattern for her. She does walk with a stable gait, does not use an assistive device. 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 Lying down and using heat decrease her pain. Prior to the procedure, she was in a state of acute pain and was placed on a short term course of Adams 5/325 b.i.d. p.r.n. Patient states she only needed it for approximately two weeks, and has not needed it since the procedure. Prior to that prescription, she was regularly maintained on tramadol 50 mg t.i.d. p.r.n. In addition to that, she takes diclofenac 50 mg daily and uses Voltaren gel. Patient's REVIEW OF SYSTEMS / PAST MEDICAL HISTORY / ALLERGIES and IMAGES have been reviewed and they are noted on the chart. PHYSICAL EXAM: VITALS: Blood pressure is 130/75. Heart rate is 86. Temperature is 96.8. She is 5'3 and weighs 54.5 kg. GENERAL APPEARANCE: Pleasant, no acute distress. FOCUSED EXAM - BACK: Paravertebral muscles are non-spasmodic. Range of motion is within functional limits for lateral rotation and flexion/extension. No reproduction of spinal axial pain to compression of the posterior elements of the facets. Right gluteal spasm with trigger point identified with positive jump response. MUSCULOSKELETAL: Motor is intact, 4/5 bilaterally. No overt weakness noted. NEUROLOGICALLY: Radicular sensory is intact. Negative polyneuropathy. IMPRESSION: Right gluteal spasm, lumbar spondylosis, lumbar degenerative disc and lumbar neuritis. PLAN: She will receive a right gluteal trigger point injection x1 today in the office. After discussing with the patient, she agrees to move forward with aquatic therapy 2-3 times a week for 6-8 weeks. Patient does understand that there is still room for improvement from her ablations. We will obtain a U-Tox in the office today as well. We will see her in three months' time, unless otherwise indicated. Patient agrees with the plan of care and would like to proceed. [facility] Signed and Approved by: MICHELE SALDAÑA . 12/06/2021 16:15:00[facility] noteNo InformationNort [employer] Other History general Narrative - Reported* Type Description Date Medical History LOW BACK PAIN Medical History OSTEOPORSIS SEVERE Medical History MIGRAINES Surgical History LEFT WRIST FRACTURE WITH PIN PL ACEMENT Surgical History TORN LEFT ROTATOR SHOULDER Surgical History NASAL SURGERY Surgical History 3 C-SECTIONS Surgical History RIGHT HAND CARPAL TUNNEL RELEAS E Surgical History Nerve block and epideral 04/2023 Hospitalization History back issues 05/2006 Hospitalization History shoulder pain 1982 Hospitalization History migraines 1992 [facility] Other Summary Purpose Family History No Family History Records FoundNo Family History Records Found Advance Directives No Advanced Directives Records FoundNo Advanced Directives Records Found Reason for Referral Reason diarrhea x 6 weeks a nd increased heartburn. Diagnosis 1 Chronic diarrhea (K5 2.9) Referral Organization [facility] Referring Provider First Name Patricia Referring Provider Last Name Abdoulaye Referring Provider Specialty Family Medi cine Referred Organization [facility] Gastroenterolo gy Referred Address [address],[address] Referred Provider Specialty Gastroentero logy Referral Priority Routine Additional Source Comments INFORMATION SOURCE (unrecogn ized section and content) DATE CREATED AUTHOR 05/09/2022 The [facility] DATE CREATED AUTHOR AUTHOR'S ORGANIZ ATION 11/17/2022 [facility] REASON FOR VISIT (unrecogniz ed section and content) Stomach/Bowel Issueslabs FOR RECORDS PERTAINING TO PATIENTS WHO ARE OR HAVE BEEN ENROLLED IN A CHEMICAL DEPENDENCY/SUBSTANCEABUSE PROGRAM, SOME INFORMATION MAY BE OMITTED. This clinical summary was aggregated from multiple sources. Caution should be exercised in using it in the provision of clinical care. This summary normalizes information from multiple sources, and as a consequence, information in this document may materially change the coding, format and clinical context of patient data. In addition, data may be omitted in some cases. CLINICAL DECISIONS SHOULD BE BASED ON THE PRIMARY CLINICAL RECORDS. [facility]. provides no warranty or guarantee of the accuracy or completeness of information in this document.
--- NOTE | 2023-08-22 08:23 | XR_ITS ---
[address] [address] Patient Name: LOBO MURDOCK MRN: [id number] date: 1945 Sex: F Assigned Patient Location: [facility] Current Patient Location: [facility] Accession/Order Number: [id number] Exam Date: 08/22/2023 08:12 Report Date: 08/22/2023 08:41 At the request of: VIKY STANFORD Procedure: XR DEXA axial skeleton EXAMINATION: XR DEXA axial skeleton, 08/22/2023 8:12 AM EST HISTORY: Age Related Osteoporosis M81.0 COMPARISON: Numerous prior exams the latest 2021 2018. TECHNIQUE: Dual-energy X-ray absorptiometry (DEXA) bone density study performed for the axial skeleton. HISTORY: Age Related Osteoporosis M81.0 FINDINGS: Bone mineral density AP spine L2-L4 measures 0.854 g/sq cm. Young adult T score -2.9. WHO classification: Osteoporosis. Lowest bone mineral density left femoral neck measuring 0.604 g/sq cm. T score -3.1. WHO classification: Osteoporosis XR/XR DEXA axial skeleton IMPRESSION: Stable bone mineral density. Osteoporosis with high fracture risk Electronically authenticated by: LEIF SALAZAR Date: 08/22/2023 08:41
== END 2023-08-22 08:01 | disposition home or self-care (01) ==
LOC: RAD 08:01
PROVIDERS: PCP Family Medicine; Visit Provider Family Medicine
DX: M81.0 Age-related osteoporosis without current pathological fracture (principal)
CPT/HCPCS: 77080

== ENCOUNTER 2023-09-10 10:45 | Outpatient (OUT) | payer MEDICARE, SELFPAY ==
--- NOTE | 2023-09-10 | XR_ITS ---
The [address] [address] Patient Name: LOBO MURDOCK MRN: [id number] date: 1945 Sex: F Assigned Patient Location: [facility] Current Patient Location: [facility] Accession/Order Number: [id number] Exam Date: 09/10/2023 11:00 Report Date: 09/10/2023 12:47 At the request of: DANNY MEDINA Procedure: XR foot LT min 3V PROCEDURE: XR foot LT min 3V COMPARISON: None. HISTORY: LEFT FOOT PAIN. FINDINGS: BONES:Moderate hallux valgus. Moderate to severe degenerative changes most significant at the tarsometatarsal joints with joint space narrowing marginal osteophyte formation. Midfoot valgus, forefoot varus. SOFT TISSUES:Negative. No visible soft tissue swelling. EFFUSION:None visible. OTHER: Negative. XR/XR foot LT min 3V IMPRESSION: Moderate to severe degenerative changes most significant at the tarsometatarsal joints Electronically authenticated by: LEIF SALAZAR Date: 09/10/2023 12:47
--- OUTSIDE RECORDS SUMMARY | 2023-09-10 10:48 | XMS_ITS | CCD ---
Author Name Unknown Address [address] [facility] [facility] [address] [place] [address] Organization [facility] Care Team Providers Care Yard Spotter Name Role Phone PHYSICIAN, DEFAULT Admitting Unavailable PHYSICIAN, DEFAULT Attending Unavailable ALT-DANIEL, BRINDA Primary Care Unavailable ARIADNA NOLAN Admitting Unavailable ARIADNA NOLAN Attending Unavailable ALT-DANIEL, BRINDA Referring Unavailable ALT-DANIEL, [...] MATTHEWS ., DR MASSIMO Cook Consulting Unavailable STANFORD, DR PATRICIA Crain Primary Care Unavailable DENY [...] Admitting Unavailable SALDAÑA ., MICHELE Consulting Unavailable ABODULAYE, DR PATRICIA Crain Primary Care Unavailable SALDAÑA ., MICHELE Attending Unavailable ABDOULAYE, DR PATRICIA Crain Primary Care Unavailable SALDAÑA ., MICHELE Admitting Unavailable MATTHEWS ., DR MASSIMO Cook Admitting Unavailable STANFORD, DR PATRICIA Crain Primary Care Unavailable MATTHEWS ., DR MASSIMO Cook Attending Unavailable BYRON ., DR MASSIMO Cook Admitting Unavailable BYRON ., DR MASSIMO Cook Consulting Unavailable ABDOULAYE, DR PATRIICA Crain Primary Care Unavailable BYRON ., DR MASSIMO Cook Attending Unavailable ABDOULAYE, DR PATRICIA Crain Consulting Unavailable STANFORD, DR PATRICIA Crain Attending Unavailable STANFORD, DR PATRICIA Crain Admitting Unavailable STANFORD, DR PATRICIA Crain Primary Care Unavailable STANFORD, DR PATRICIA Crain Primary Care Unavailable STANFORD, DR PATRICIA Crain Consulting Unavailable STANFORD, DR PATRICIA Crain Attending Unavailable STANFORD, DR PATRICIA Crain Admitting Unavailable MATTHEWS ., DR MASSIMO Cook Attending Unavailable MATTHEWS ., DR MASSIMO Cook Admitting Unavailable PIPER .MICHELE Consulting Unavailable ROBBIE, DR FLANAGAN Primary Care Unavailable BYRON ., DR MASSIMO Cook Admitting Unavailable BYRON ., DR MASSIMO Cook Attending Unavailable ABDOULAYE, DR PATRICIA Crain Primary Care Unavailable BYRON ., DR MASSIMO Cook Consulting Unavailable Abdoulaye, Patricia Unavailable Asaad, Imad Unavailable CARI NAVA Attending Unavailable CARI NAVA Attending Unavailable Allergies Allergy Classification Reported Allergen(s) Allergy Type Date of Onset Reaction(s) Facility (6 sources) Calcitonin ([place]) *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 Propensity to adverse reactions Comment:severe weakness [facility] Other Medications Current Medications Medication Drug Class(es) Dates Sig (Normalized) Sig (Original) baclofen 10 mg oral tablet (6 sources) gamma-Aminobutyric Acid-ergic Agonist Start: 10-25-2020 take 1 tablet by mouth once daily at bedtime as needed Baclofen 10 MG 1 tablet as needed Orally Once a day at [facility] for 0 days Oct, Active Citracal Plus - (6 sources) Start: 10-25-2020 Citracal Plus - as directed Orally once a day for 0 days Oct, Active denosumab (6 sources) RANK Ligand Inhibitor Start: 08-13-2019 Prolia 60MG/ML Prolia 60MG/ML, # 0, 08/13/2019, No Refill. Active Subcutaneous for 0 *Pick strength-form from [employer] for eRX* Aug, Active diclofenac sodium 50 mg delayed release oral tablet (6 sources) Nonsteroidal Anti-inflammatory Drug Start: 10-25-2020 take [...] Active hyoscyamine sulfate 0.125 mg oral tablet (6 sources) take 1 tablet by mouth four times daily as needed Levsin 0.125 MG 1 tablet as needed Orally qid prn for 10 days Active Magnesium (6 sources) Start: 10-25-2020 take 1 tablet by mouth once daily Magnesium 400 MG 1 tablet with a meal Orally Once a day for 0 days *Pick strength-form from [employer] for eRX* Oct, Active Multiple Vitamin (6 sources) take 1 tablet by mouth once daily Multiple Vitamin 1 tablet Orally Once a day Active pantoprazole 40 mg delayed release oral tablet (6 sources) Proton Pump Inhibitor Start: 07-15-2023 take 1 tablet by mouth every twenty-four hours Pantoprazole Sodium 40 MG 1 tablet Orally Once a day for 30 day(s) Jul, Active traMADol hydrochloride 50 mg oral tablet (6 sources) Opioid Agonist Start: 10-25-2020 take 1 tablet by mouth every twenty-four hours traMADol HCl 50 MG 1 tablet as needed Orally Once a day for 0 days PRN Oct, Active Vitamin D3 1000 UNIT (6 sources) take 1 tablet by mouth once daily Vitamin D3 1000 UNIT 1 tablet Orally Once a day Active Problems Active Problems Problem Classification Problem Date Documented Da te Episodic/Chronic Abdominal pain (5 sources) Abdominal pain; Translations: [Unspecified abdominal pain] Episodic Esophageal disorders (14 sources) Gastro-esophageal reflux disease with esophagitis; Translations: [Gastro-esophageal reflux disease with esophagitis, without bleeding] Onset: 09-05-2018 Chronic Noninfectious gastroenteritis (7 sources) Noninfective gastroenteritis and colitis, unspecified; Translations: [Chronic diarrhea] Episodic Nutritional deficiencies (8 sources) Vitamin D deficiency; Translations: [Vitamin D deficiency, unspecified] Onset: 01-19-2015 Chronic Osteoarthritis (6 sources) Osteoarthritis; Translations: [Unspecified osteoarthritis, unspecified site] Onset: 10-28-2013 Chronic Osteoporosis (17 sources) Age-related osteoporosis without current pathological fracture; Translations: [Primary osteoporosis] Onset: 10-28-2013 Chronic Other aftercare (6 sources) 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; Translations: [buttermaker continuous churn (current) use of bisphosphonates] Episodic Other connective tissue disease (1 source) Muscle weakness (generalized); Translations: [MUSCLE WEAKNESS GENERALIZED] Onset: 09-12-2022 Episodic Other connective tissue disease (1 source) Abnormal posture; Translations: [ABNORMAL POSTURE] Onset: 09-12-2022 Episodic Other connective tissue disease (1 source) Pain in left toe(s) Episodic Other gastrointestinal disorders (1 source) Change in bowel habit Episodic Other nervous system disorders (4 sources) [...] Episodic Other nutritional; endocrine; and metabolic disorders (2 sources) Abnormal weight loss; Translations: [Weight loss] Episodic Other nutritional; endocrine; and metabolic disorders (4 sources) Weight decreased; Translations: [Abnormal weight loss] Episodic Other skin disorders (6 sources) Alopecia; Translations: [Nonscarring hair loss, unspecified] Episodic Residual codes; unclassified (2 sources) Requires influenza virus vaccination; Translations: [Need for prophylactic vaccination and inoculation, Influenza] Episodic Spondylosis; intervertebral disc disorders; other back problems (16 sources) Other spondylosis with radiculopathy, lumbar region; Translations: [Sacroiliitis, not elsewhere classified] Onset: 02-22-2022 Chronic Syncope (6 sources) Syncope and collapse; Translations: [Syncope and [...] Episodic/Chronic Immunizations and screening for infectious disease (6 sources) Vaccination given; Translations: [Encounter for immunization] [...] Onset: 06-13-2022 Episodic Other lower respiratory disease (6 sources) Dyspnea; Translations: [Other forms of dyspnea] Onset: 07-19-2016 Episodic Spondylosis; intervertebral disc disorders; other back problems (13 sources) Intervertebral disc disorders with radiculopathy, lumbar region; Translations: [Radiculopathy, lumbar region] Onset: 10-28-2013 Episodic Unclassified (1 source) LOW BACK PAIN, UNSPECIFIED; Translations: [LOW BACK PAIN, UNSPECIFIED] Onset: 06-19-2022 Results Test Name Value Interpretation Reference Range Facility CALCIUMon 10-03-2022 Calcium [Mass/Vol] 8.9 mg/dL Normal 8.5-10.1 [facility] Comment on above: Performed By: #### C VALERIO ADAMS #### [facility] [address] [place] [address] Dr. Dang Grimm CREATININEon 10-03-2022 Creatinine [Mass/Vol] 1.03 mg/dL Critically high 0.55-1.02 [facility] Comment on above: Performed By: #### C ANGIE, CA #### [facility] [address] [place], [place] [address] Dr. Dang Grimm EGFR-AF CROATIAN >60 Normal >=60 The [facility] Comment on above: Performed By: #### C ANGIE, CA #### [facility] [address] [place], [place] [address] Dr. Dang Grimm EGFR-NON AF CROATIAN 52 mL/min/1.73m2 Critically low >=60 [facility] Comment on above: Performed By: #### C ANGIE, CA #### [facility] [address] [place], [place] [address] Dr. Dang Grimm Covid-19 PCR ([facility])on SARS-CoV-2 (COVID-19) RNA GENARO+probe Ql (Unsp spec) Not detected Normal NOT DETECTED The [facility] Comment on above: Result Comment: This test is not yet approved or cleared by the [place] FDA. When there are no FDA-approved or cleared tests available, and other criteria are met, FDA can make tests available under an emergency access mechanism called an Emergency Use Authorization (EUA). The EUA for this test is supported by the [place] of Health and Human Service's (HHS's) declaration [...] consistent with SARS-CoV-2. Performed By: #### C VDTBH #### [facility] [address] [place] [address] [address] Dang Archer 04-20-2022 OCTAVIA PATTERN SPECKLED Normal The [facility] Comment on above: Result Comment: The [...] authority. Performed By: #### 1 0196 #### [place] [address] OCTAVIA SCREEN 1:40 Normal <1:40,1:40 The [facility] Comment on above: Result Comment: Test performed using MELCHOR IFA OCTAVIA Hep-2 Test, a pre-standardized assay designed for the qualitative and semi-quantitative detection of antinuclear antibodies. Performed By: #### 1 0196 #### [address] C REACTIVE PROTEINon 022 CRP [Mass/Vol] 2.5 mg/L Normal 0.0-7.0 The [facility] Comment on above: Performed By: #### 6 1405, 82288 #### [place] [address] CBC COMPLETE BLOOD COUNTon 0 04-20-2022 Erythrocyte distribution width (RBC) [Ratio] 12.4 % Normal 11.5-15.0 The [facility] Comment on above: Performed By: #### 5 2486, 27131 #### [place] [address] Hematocrit (Bld) [Volume fraction] 41.6 % Normal 36.0-45.0 The [facility] Comment on above: Performed By: #### 5 5836, 25665 #### [place] [address] Hemoglobin (Bld) [Mass/Vol] 13.7 g/dL Normal 12.0-15.0 The [facility] Comment on above: Performed By: #### 5 4426, 91438 #### [place] [address] [place] [address], [facility] MCH (RBC) [Entitic mass] 31.4 pg Normal 27.0-33.0 The [facility] Comment on above: Performed By: #### 5 650, 46682 #### [place] [address] [place] [address], [facility] MCHC (RBC) [Mass/Vol] 32.9 g/dL Normal 32.0-35.0 The [facility] Comment on above: Performed By: #### 5 6505, 19435 #### [place] [address] [facility] [place] [address], [facility] MCV (RBC) [Entitic vol] 95.2 fL Normal 82.0-98.0 The [facility] Comment on above: Performed By: #### 5 6505, 39075 #### [place] [address] [facility] [place] [address], [facility] Nucleated RBC/100 WBC (Bld) [Ratio] 0 % Normal 0-0 The [facility] Comment on above: Performed By: #### 5 6505, 40567 #### [place] [address] [place] [address], [facility] PLAT CNT 248 10*3/uL Normal 150-400 [facility] Comment on above: Performed By: #### 5 6505, 07564 #### [place] [address] [place] [address], [facility] RBC (Bld) [#/Vol] 4.37 10*6/uL Normal 3.80-5.00 The [facility] Comment on above: Performed By: #### 5 650, 87951 #### [place] [address] [place] [id number], [facility] WBC (Bld) [#/Vol] 5.54 10*3/uL Normal 4.00-10.60 The [facility] Comment on above: Performed By: #### 5 6506, 75080 #### [address] CERVICAL SPINE 4 OR 5 VIEWSo n 04-20-2022 CERVICAL SPINE 4 OR 5 VIEWS [facility] Department of Radiology [address] [place] [id number] ===== Patient Name: LOBO MURDOCK : 1945 Sex: F Age: Race: White Pt. Location: [facility] Patient Status: O Ordered Date: 04/20/2022 10:50:00 AM Completed Date: 04/20/2022 11:42 AM Requesting Provider: MICHAEL HAHN Attending Provider: ARIADNA NOLAN Report Copy To: Signs & Symptoms: M54.2 Cervicalgia I10 History: [place] Comments: Views (X-RAY, CERVICAL SPINE): AP, Lateral, [...] C3 Electronically signed: Christian Upton. Transcribed by: [email or web address], User Resident: Electronically Signed by: CHRISTIAN UPTON @ 04/20/2022 02:33 PM Normal [facility] Comment on above: Order Comment: Views (X-RAY, CERVICAL SPINE): AP, Lateral, Odontoid, Flexion, Extension COMP METABOLIC PANELon 04-20 Albumin [Mass/Vol] 4.1 g/dL Normal 3.5-5.7 [facility] Comment on above: Performed By: #### 3 5515, 51744, 32879 #### [place] [address] [place] [address], [facility] ALKALINE PHOSPH 63 IU/L Normal 34-104 [facility] Comment on above: Performed By: #### 3 5515, 41579, 22636 #### [place] [address] [facility] [place] [address], [facility] ALT [Catalytic activity/Vol] 15 U/L Normal 7-52 [facility] Comment on above: Performed By: #### 3 5515, 30399, 31515 #### [place] [address] [place] [address], [facility] AST [Catalytic activity/Vol] 22 U/L Normal 13-39 [facility] Comment on above: Performed By: #### 3 5515, 12929, 99395 #### [place] [address] [place] [address], [facility] Bilirubin [Mass/Vol] 0.5 mg/dL Normal 0.3-1.0 [facility] Comment on above: Performed By: #### 3 5515, 04491, 04955 #### [place] [address] [place] [address], [facility] Calcium [Mass/Vol] 10.2 mg/dL Normal 8.6-10.3 [facility] Comment on above: Performed By: #### 3 5515, 89675, 54235 #### [place] [address] [place] [address], [place] Chloride [Moles/Vol] 105 mmol/L Normal 98-107 The [facility] Comment on above: Performed By: #### 3 5515, 20481, 69268 #### [place] [address] [place] [address], [place] CO2 [Moles/Vol] 25 mmol/L Normal 21-31 [facility] Comment on above: Performed By: #### 3 5515, 57231, 05467 #### [place] [address] [place] [address], [facility] Creatinine [Mass/Vol] 0.95 mg/dL Normal 0.60-1.20 The [facility] Comment on above: Performed By: #### 3 5515, 84842, 05421 #### [place] [address] [place] [address], [place] GFR/1.73 sq M.predicted among non-blacks MDRD (S/P/Bld) [Vol rate/Area] mL/min/{1.73_m2} Normal >60 The [facility] Comment on above: Result Comment: The [facility]'s estimated glomerular filtration rate (eGFR) will no [...] of individuals. Performed By: #### 3 5515, 20051, 55197 #### [place] [address] [place] [address], [place] Glucose [Mass/Vol] 88 mg/dL Normal 70-100 The [facility] Comment on above: Performed By: #### 3 5515, 38299, 10306 #### [place] [address] [place] [address], [place] Potassium [Moles/Vol] 4.5 mmol/L Normal 3.5-5.1 The [facility] Comment on above: Performed By: #### 3 5515, 13766, 10696 #### [place] [address] [place] [address], [place] Protein [Mass/Vol] 6.8 g/dL Normal 6.0-8.3 The [facility] Comment on above: Performed By: #### 3 5515, 68967, 35020 #### [place] [address] [place] [address], [place] Sodium [Moles/Vol] 138 mmol/L Normal 136-145 [facility] Comment on above: Performed By: #### 3 5515, 40426, 75911 #### [place] [address] [place] [address], [place] Urea nitrogen [Mass/Vol] 29 mg/dL High 7-25 The [facility] Comment on above: Performed By: #### 3 5515, 85255, 38566 #### [place] [address] [place] [address], [place] [id number] 04-20-2022 CYCLIC CIT PEP 2 Units Normal 0-19 The [facility] Comment on above: Result Comment: INTE RPRETIVE [...] be monitored and testing repeated. Performed By: [facility] [address] [place] [address] Manager Real Estate: Brett Tamez MD, PhD FERRITINon 04-20-2022 Ferritin [Mass/Vol] 43 ng/mL Normal 11-307 The [facility] Comment on above: Performed By: #### 3 5515, 40431, 15417 #### [address] HAND LEFT 3 VWSon 04-20-2022 HAND LEFT 3 VWS [facility] Department of Radiology [address] [place] [phone] ===== Patient Name: LOBO MURDOCK : 1945 Sex: F Age: Race: White Pt. Location: [facility] Patient Status: O Ordered Date: 04/20/2022 10:50:00 AM Completed Date: 04/20/2022 11:42 AM Requesting Provider: MICHAEL HAHN Attending Provider: ARIADNA NOLAN Report Copy To: Signs & Symptoms: M79.641 Pain in right hand I10 History: [place] Comments: Evaluate Exam: HAND LEFT 3 [facility] ===== HAND LEFT 3 S 04/20/2022 11:42 AM CLINICAL INDICATIONS: M79.641 Pain [...] report. Electronically signed: Chelita Lazcano. Transcribed by: [email or web address], User Resident: NIRMALA MONGE Electronically Signed by: CHELITA LAZCANO @ 04/20/2022 01:29 PM I personally read this/these film(s) with this resident Normal The [facility] Comment on above: Order Comment: Evalu ate HAND RIGHT 3 [facility] 2 HAND RIGHT 3 [facility] Department of Radiology [address] [place] [phone] ===== Patient Name: LOBO MURDOCK : 1945 Sex: F Age: Race: White Pt. Location: [facility] Patient Status: O Ordered Date: 04/20/2022 10:50:00 AM Completed Date: 04/20/2022 11:42 AM Requesting Provider: MICHAEL HAHN Attending Provider: ARIADNA NOLAN Report Copy To: Signs & Symptoms: M79.641 Pain in right hand I10 History: [place] Comments: Evaluate Exam: HAND RIGHT 3 VWS ===== HAND RIGHT 3 VWS 04/20/2022 11:42 [...] report. Electronically signed: Chelita Lazcano. Transcribed by: [email or web address], User Resident: NIRMALA MONGE Electronically Signed by: CHELITA LAZCANO @ 04/20/2022 01:43 PM I personally read this/these film(s) with this resident Normal The [facility] Comment on above: Order Comment: Evalu ate RHEUMATOID FACTOR SERUMon RA <20 Normal 0-20 The [facility] Comment on above: Performed By: #### 6 1405, 61062 #### [place] [address] [place] [address], [facility] SEDIMENTATION RATEon 022 SED RATE 38 mm/hr High 0-20 The [facility] Comment on above: Performed By: #### 5 6506, 39957 ####[place] [place] [address], [facility] TIBC- INCLUDES IRONon 2021 FE SATURATION 30 % Normal 20-50 [facility] Comment on above: Performed By: #### 3 5515, 23515, 19116 #### [place] [address] [place] [address], [facility] Iron [Mass/Vol] 115 ug/dL Normal 50-212 The [facility] Comment on above: Performed By: #### 3 5515, 17354, 08295 #### [place] [address] TIBC 378 mcg/dL Normal 250-450 The [facility] Comment on above: Performed By: #### 3 5515, 39468, 83932 #### [place] [address] [place] [address], [facility] UIBC 263 mcg/dL Normal 155-355 The [facility] Comment on above: Performed By: #### 3 5515, 53830, 40294 #### [place] [address] [place] [address], [facility] CALCIUMon 04-09-2022 Calcium [Mass/Vol] 9.6 mg/dL Normal 8.5-10.1 The [facility] Comment on above: Performed By: #### VALERIO MADRIGAL #### [facility] [address] [place] [address] [address] Dang Grimm CREATININEon 04-09-2022 Creatinine [Mass/Vol] 1.07 mg/dL Critically high 0.55-1.02 [facility] Comment on above: Performed By: #### VALERIO MADRIGAL #### [facility] [address] [place], [place] [address] Dr. Dang Grimm EGFR-AF CROATIAN >60 Normal >=60 [facility] Comment on above: Performed By: #### C ANGIE, [place] #### [facility] [address] [place], [place] [address] Dr. Dang Grimm EGFR-NON AF CROATIAN 50 mL/min/1.73m2 Critically low >=60 [facility] Comment on above: Performed By: #### C ANGIE, CA #### [facility] [address] [place], [place] [address] Dr. Dang Grimm Vital Signs Date Time Vital Sign Value Performing Clinician Facility 08-30-2023 10:30-0500 Body height 157.48 cm Patricia Stanford Other [facility] Other 08-30-2023 10:30-0500 Body mass index (BMI) [Ratio] 21.73 kg/m2 Patricia Stanford Other [facility] Other 08-30-2023 10:30-0500 Body weight 53.89 kg Patricia Stanford Other [facility] Other 08-30-2023 10:30-0500 Diastolic blood pressure 74 mm[Hg] Patricia Stanford Other [facility] Other 08-30-2023 10:30-0500 Systolic blood pressure 122 mm[Hg] Patricia Stanford Other [facility] Other 08-21-2023 13:45-0500 Body height 157.48 cm Imad Asaad Other [facility] Other 08-21-2023 13:45-0500 Body mass index (BMI) [Ratio] 21.58 kg/m2 Imad Asaad Other [facility] Other 08-21-2023 13:45-0500 Body weight 53.52 kg Imad Melissa Other [facility] Other 07-15-2023 11:30-0500 Body height 157.48 cm Patricia Stanford Other [facility] Other 07-15-2023 11:30-0500 Body mass index (BMI) [Ratio] 21.73 kg/m2 Patricia Stanford Other [facility] Other 07-15-2023 11:30-0500 Body weight 53.89 kg Patricia Stanford Other [facility] Other 07-15-2023 11:30-0500 Diastolic blood pressure 78 mm[Hg] Patricia Stanford Other [facility] Other 07-15-2023 11:30-0500 Systolic blood pressure 148 mm[Hg] Patricia Stanford Other [facility] Other Encounters Encounter Date Encounter Type Care Provider Facility Start: 09-09-2023 End: 09-09-2023 ambulatory CARI B APLING Not Available Start: 09-04-2023 End: 09-04-2023 ambulatory CARI B APLING Not Available Start: 09-03-2023 End: 09-03-2023 ambulatory Patricia Stanford Other [facility] Other Start: 09-03-2023 Telephone encounter Patricia Stanford [facility] Start: 08-30-2023 End: 08-30-2023 ambulatory Patricia Stanford Other [facility] Other Start: 08-30-2023 Office outpatient vi sit 15 minutes Patricia Stanford [facility] Start: 08-23-2023 End: 08-23-2023 ambulatory Patricia Stanford Other [facility] Other Start: 08-23-2023 Telephone encounter Patricia Abdoulaye [facility] Start: 08-21-2023 End: 08-21-2023 ambulatory Imad Asaad Other [facility] Other Start: 08-21-2023 Office outpatient ne w 45 minutes Imad Asaad [facility] Start: 07-15-2023 End: 07-15-2023 ambulatory Patricia Abdoulaye Other [facility] Other Start: 07-15-2023 Office outpatient vi sit 15 minutes Patricia Stanford [facility] Start: 07-15-2023 Telephone encounter Patricia Stanford [facility] Start: 10-03-2022 End: 10-05-[address] PATRICIA STANFORD Facility:[facility] Start: 09-27-2022 End: 09-28-[address] MASSIMO MATTHEWS . Facility:[facility] Start: 09-11-2022 End: 09-11-[address] MASSIMO MATTHEWS . Facility:[facility] Start: 09-07-2022 End: 10-17-[address] MASSIMO MATTHEWS . Facility:[facility] Start: 09-04-2022 End: 09-05-[address] MASSIMO MATTHEWS . Facility:[facility] Start: 07-26-2022 Encounter for preprocedural laboratory examination DR MASSIMO MATTHEWS . [facility] Start: 07-24-2022 End: 07-24-[address] [...] End: 06-07-[address] MASSIMO MATTHEWS . Facility:[facility] Start: 04-20-2022 End: 04-21-2022 ambulatory ARIADNA NOLAN Facility:[facility] Start: 04-09-2022 End: 04-10-[address] PATRICIA STANFORD Facility: Start: 02-27-2022 End: 02-28-2022 ambulatory DEFAULT PHYSICIAN Facility:[facility] Start: 02-22-2022 End: 02-23-[address] MASSIMO MATTHEWS . Facility: Start: 12-06-2021 ambulatory MICHELE SALDAÑA . Facility: 1 Start: 11-30-2021 End: 12-01-[address] MASSIMO MATTHEWS . Facility: Start: 10-25-2020 Pre-procedure evaluation check Patricia Stanford Other [facility] Other Procedures Date Procedure Procedure Detail Performing Clinician Start: 07-10-2017 Screening mammography M nathan Abdoulaye Other Start: 07-19-2016 General examination of patient Patricia Stanford Other Immunizations Immunization Date Immunization Notes Care Provider Fa cility 05-17-2022 zoster vaccine, live Patricia Stanford Other [facility] Other 04-23-2022 influenza virus vaccine, split virus (incl. purified surface antigen) Patricia Stanford Other [facility] Other 04-23-2022 pneumococcal polysaccharide vaccine, 23 valent Patricia Stanford Other [facility] Other 04-23-2022 tetanus toxoid, adsorbed Patricia Stanford Other [facility] Other 05-25-2021 influenza virus vaccine, split virus (incl. purified surface antigen) Patricia Stanford Other [facility] Other 10-18-2020 COVID-19 Vaccine Moderna - Documentation Purposes Only Patricia Stanford Other [facility] Other 09-19-2020 COVID-19 Vaccine Moderna - Documentation Purposes Only Patricia Stanford Other [facility] Other 04-16-2020 influenza virus vaccine, split virus (incl. purified surface antigen) Patricia Stanford Other [facility] Other 05-12-2019 influenza virus vaccine, split virus (incl. purified surface antigen) Patricia Stanford Other [facility] Other 04-18-2018 influenza virus vaccine, split virus (incl. purified surface antigen) Patricia Stanford Other [facility] Other 07-10-2017 pneumococcal conjuga te vaccine, 13 valent Patricia Stanford Other [facility] Other 04-18-2017 influenza virus vaccine, split virus (incl. purified surface antigen) Patricia Stanford Other [facility] Other 05-09-2016 influenza virus vaccine, split virus (incl. purified surface antigen) Patricia Stanford Other [facility] Other 05-27-2013 tetanus and diphther ia toxoids, adsorbed, preservative free, for adult use (5 Lf of tetanus toxoid and 2 Lf of diphtheria toxoid) Patricia Stanford Other [facility] Other 12-24-2011 pneumococcal polysaccharide vaccine, 23 valent Patricia Stanford Other [facility] Other Payers Date Payer Category Payer Medicare [id number] 1959 Unknown [id number] 1945 Unknown [id number] 2.16.8 40.1.406341.3.579.2.647 1945 Unknown [id number] 2.16.8 40.1.127177.3.579.2.647 1946 Unknown [id number] 2.16.84 0.1.027259.3.579.2.593 1946 Unknown [id number] 2.16.84 0.1.003790.3.579.2.593 1946 Unknown [id number] 2.16.84 0.1.935854.3.579.2.593 1946 Unknown [id number] 2.16.84 0.1.230405.3.579.2.593 1946 Unknown [id number] 2.16.84 0.1.263307.3.579.2.593 1946 Unknown [id number] 2.16.84 0.1.399812.3.579.2.593 1946 Unknown [id number] 2.16.84 0.1.890086.3.579.2.593 1946 Unknown [id number] 2.16.84 0.1.504359.3.579.2.593 1946 Unknown [id number] 2.16.84 0.1.232994.3.579.2.593 1946 Unknown [id number] 2.16.84 0.1.113918.3.579.2.593 1946 Unknown [id number] 2.16.84 0.1.931312.3.579.2.593 1946 Unknown [id number] 2.16.84 0.1.172748.3.579.2.593 1946 Unknown [id number] 2.16.84 0.1.410438.3.579.2.593 1946 Unknown [id number] 2.16.84 0.1.809105.3.579.2.593 1946 Unknown [id number] 2.16.84 0.1.211806.3.579.2.1259 1946 Unknown [id number] 2.16.84 0.1.088513.3.579.2.1259 Unknown Social History Date Type Detail Facility Unknown if ever smoked [facility] Other Sex Assigned At Sex Assigned At Bir th [facility] Other Clinical Notes 11-30-2021 to 08-30-2023 Note Date & Type Note Facility 08-30-2023 Evaluation note Encounter Date Diagnosis Assessment Notes Aug, Chronic diarrhea (ICD-10 - K52.9) Pt states that levsin did help her symptoms. Still has diarrhea 3-4 x daily, worse after eating. Scheduled for EGD and colonoscopy in Sep. Aug, Pain of left great toe (ICD-10 - M79.675) Pt requests referral. Did explain that they do not fit orthotics, may want to try OTC ones in meantime. Referral placed. [facility] Other 01-10-2024 Evaluation note* Encounter Date Diagnosis Assessment Notes Treatment Notes Treatment Clinical Notes Aug, GERD (gastroesophageal reflux disease) (ICD-10 - K21.9) Aug, Chronic diarrhea (ICD-10 - K52.9) Patient reports that her last colonoscopy was at the [facility] about 11 years ago and that she can not remember who preformed the procedure Aug, Abdominal pain (ICD-10 - R10.9) Aug, Weight loss, unintentional (ICD-10 - R63.4) Aug, Change in bowel habits (ICD-10 - R19.4) Patinet is advised to have a colonoscopy ordered, scheduled and prep instructions given today Risks and benefits of procedure explained to patient; patient verbalizes understanding. [facility] Other 12-04-2023 Evaluation note* Encounter Date Diagnosis Assessment Notes Treatment Notes Treatment Clinical Notes Jul, Chronic diarrhea (ICD-10 - K52.9) [...] (ICD-10 - M81.0) Due for Dexa 08/2023 [facility] Other 02-16-2023 NoteCONSULTATION CONSULTATION DATE: 09/27/2022 HISTORY OF PRESENT ILLNESS: This is a 76-year-old female who returns to the clinic status post LES on 09/11/2022. The patient states she was afforded between 50-60% relief. Depending on her physical activity, determines her level of comfort. 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, housework and lifting greatly aggravate her [...] Patient is in agreement with this plan.[id number] NoteCONSULTATION CONSULTATION DATE: 09/04/2022 HISTORY OF PRESENT [...] patient understands and would like to proceed.[facility] [id number] NoteCONSULTATION CONSULTATION DATE: 07/11/2022 HISTORY OF PRESENT [...] followed up in the clinic post procedure.[facility] [id number] NoteCONSULTATION PROCEDURE DATE: 07/11/2022 PREOPERATIVE DIAGNOSIS: Bilateral [...] will be followed up in the clinic.[facility] 06-06-2022 NoteCONSULTATION CONSULTATION DATE: 06/06/2022 HISTORY [...] pain returning. 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 The patient has not seen a brush head maker in the past. REVIEW OF SYSTEMS, PAST [...] mg q.h.s. A referral to rheumatology near [place] will be sent on her behalf and I highly encouraged her to seek consultation, particularly since she has a familial history of autoimmune diseases. The patient agrees with the plan of care and will be followed up in the office in three months' time. [facility] Signed and Approved by: MICHELE SALDAÑA . 03/02/2022 14:16:00[facility]04-21-2022 NoteCONSULTATION Consultation Date:11/30/2021 PREOPERATIVE DIAGNOSIS: Right gluteal [...] will be followed up in the office. [facility] Signed and Approved by: MICHELE SALDAÑA . 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 Lying down and using heat decrease her pain. Prior to the procedure, she was in a state of acute pain and was placed on a short term course of [place] 5/325 b.i.d. p.r.n. Patient states she only [...] of care and would like to proceed. [facility] Signed and Approved by: MICHELE SALDAÑA . 12/06/2021 16:15:00[facility] noteNo InformationNortLifecare Hospital of [facility] [employer] Other History general Narrative - Reported* Type [...] shoulder pain 1982 Hospitalization History migraines 1992 [employer] Other Summary Purpose Family History No Family History Records FoundNo Family History Records FoundNo Family History Records Found Advance Directives No Advanced Directives Records FoundNo Advanced Directives Records FoundNo Advanced Directives Records Found Reason for Referral Reason diarrhea x 6 weeks a nd increased heartburn. Diagnosis 1 Chronic diarrhea (K5 2.9) Referral Organization [facility] [employer] Referring Provider First Name Patricia Referring Provider Last Name Abdoulaye Referring Provider Specialty [facility] [email or web address] Referred Organization [facility] Gastroenterolo gy Referred Address [address],[address] Referred Provider Specialty Gastroentero logy Referral Priority Routine Reason *FU 09/06 R foot p ain Diagnosis 1 Pain of left great t oe (M79.675) Referral Organization [facility] pipo Referring Provider First Name Patricia Referring Provider Last Name Abdoulaye Referring Provider Specialty [facility] [employer] Referred Organization [facility] Referred Provider Odin Chong Referred Address [address], [place],[address] Referred Provider Specialty Podiatry - S urgical Chiropody Referral Priority Routine General Notes Shefali Carroll 12:44:49 PM >received today, notes locked, ins attached, referral faxed Additional Source Comments INFORMATION SOURCE (unrecogn ized section and content) DATE CREATED AUTHOR 05/09/2022 [facility] DATE CREATED AUTHOR AUTHOR'S ORGANIZ ATION 11/17/2022 [facility] DATE CREATED AUTHOR AUTHOR'S ORGANIZ ATION 09/09/2023 [facility] Specialists EPIC REASON FOR VISIT (unrecogniz ed section and content) Stomach/Bowel IssueslabsPATI ENT IS HERE AT THE REQUEST OF DR. STANFORD FOR CHRONIC DIARRHEA, ABD PAIN, WEIGHT LOSS & HEARTBURNdexaLeft FootGI CONSULT FOR RECORDS PERTAINING TO PATIENTS WHO ARE [...] BE BASED ON THE PRIMARY CLINICAL RECORDS. [employer] provides no warranty or guarantee of the accuracy or completeness of information in this document.
== END 2023-09-10 10:46 | disposition home or self-care (01) ==
LOC: RAD 10:45
PROVIDERS: PCP Family Medicine; Visit Provider Podiatrist Foot & Ankle Surgery
DX: M79.672 Pain in left foot (principal)
CPT/HCPCS: 73630

== ENCOUNTER 2023-09-25 10:53 | Outpatient (OUT) | payer MEDICARE, SELFPAY ==
--- OUTSIDE RECORDS SUMMARY | 2023-09-25 11:07 | XMS_ITS | CCD ---
Author Name Unknown Address [address] [facility] [address] [place] [address] Organization [facility] Care Team Providers Care Casting Agent Name Role Phone PHYSICIAN, DEFAULT Admitting Unavailable PHYSICIAN, DEFAULT Attending Unavailable ALT-DANIEL, BRINDA Primary Care Unavailable OVIDIOARIADNA LINDSEY Admitting Unavailable OVIDIO, ARIADNA S Attending Unavailable ALT-DANIEL, BRINDA Referring Unavailable ALT-DANIEL, [...] MATTHEWS ., DR MASSIMO Cook Admitting Unavailable BYRON [...] Unavailable STANFORD, DR PATRICIA Crain Admitting Unavailable BYRON ., DR MASSIMO Cook Attending Unavailable BYRON ., DR MASSIMO Cook Admitting Unavailable PIPER .MICHELE Consulting Unavailable ORBBIE, DR FLANAGAN Primary Care Unavailable BYRON ., DR MASSIMO Cook Admitting Unavailable BYRON ., DR MASSIMO Cook Attending Unavailable ABDOULAYE, DR PATRICIA Crain Primary Care Unavailable BYRON ., DR MASSIMO Cook Consulting Unavailable Abdoulaye, Patricia Unavailable Asaad, Imad Unavailable CARI NAVA Attending Unavailable CARI NAVA Attending Unavailable Allergies Allergy Classification Reported Allergen(s) Allergy Type Date of Onset Reaction(s) Facility (7 sources) Calcitonin ([place]) *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 Propensity to adverse reactions Comment:severe weakness [employer] Other Medications Current Medications Medication Drug Class(es) Dates Sig (Normalized) Sig (Original) baclofen 10 mg oral tablet (7 sources) gamma-Aminobutyric Acid-ergic Agonist Start: 10-25-2020 take 1 tablet by mouth once daily at bedtime as needed Baclofen 10 MG 1 tablet as needed Orally Once a day at [facility] for 0 days Oct, Active Citracal Plus - (7 sources) Start: 10-25-2020 Citracal Plus - as directed Orally once a day for 0 days Oct, Active denosumab (7 sources) RANK Ligand Inhibitor Start: 08-13-2019 Prolia 60MG/ML Prolia 60MG/ML, # 0, 08/13/2019, No Refill. Active Subcutaneous for 0 *Pick strength-form from [facility] for eRX* Aug, Active diclofenac sodium 50 mg delayed release oral tablet (7 sources) Nonsteroidal Anti-inflammatory Drug Start: 10-25-2020 take [...] Active hyoscyamine sulfate 0.125 mg oral tablet (7 sources) take 1 tablet by mouth four times daily as needed Levsin 0.125 MG 1 tablet as needed Orally qid prn for 10 days Active Magnesium (7 sources) Start: 10-25-2020 take 1 tablet by mouth once daily Magnesium 400 MG 1 tablet with a meal Orally Once a day for 0 days *Pick strength-form from [employer] for eRX* Oct, Active Multiple Vitamin (7 sources) take 1 tablet by mouth once daily Multiple Vitamin 1 tablet Orally Once a day Active pantoprazole 40 mg delayed release oral tablet (7 sources) Proton Pump Inhibitor Start: 07-15-2023 take 1 tablet by mouth every twenty-four hours Pantoprazole Sodium 40 MG 1 tablet Orally Once a day for 30 day(s) Jul, Active traMADol hydrochloride 50 mg oral tablet (7 sources) Opioid Agonist Start: 10-25-2020 take 1 tablet by mouth every twenty-four hours traMADol HCl 50 MG 1 tablet as needed Orally Once a day for 0 days PRN Oct, Active Vitamin D3 1000 UNIT (7 sources) take 1 tablet by mouth once daily Vitamin D3 1000 UNIT 1 tablet Orally Once a day Active Problems Active Problems Problem Classification Problem Date Documented Da te Episodic/Chronic Abdominal pain (6 sources) Abdominal pain; Translations: [Unspecified abdominal pain] Episodic Esophageal disorders (15 sources) Gastro-esophageal reflux disease with esophagitis; Translations: [Gastro-esophageal reflux disease with esophagitis, without bleeding] Onset: 09-05-2018 Chronic Noninfectious gastroenteritis (8 sources) Noninfective gastroenteritis and colitis, unspecified; Translations: [Chronic diarrhea] Episodic Nutritional deficiencies (9 sources) Vitamin D deficiency; Translations: [Vitamin D deficiency, unspecified] Onset: 01-19-2015 Chronic Osteoarthritis (7 sources) Osteoarthritis; Translations: [Unspecified osteoarthritis, unspecified site] Onset: 10-28-2013 Chronic Osteoporosis (19 sources) Age-related osteoporosis without current pathological fracture; Translations: [Primary osteoporosis] Onset: 10-28-2013 Chronic Other aftercare (7 sources) 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; Translations: [assisted (current) use of bisphosphonates] Episodic Other connective [...] Episodic Other nutritional; endocrine; and metabolic disorders (5 sources) Weight decreased; Translations: [Abnormal weight loss] Episodic Other skin disorders (7 sources) Alopecia; Translations: [Nonscarring hair loss, unspecified] Episodic Residual codes; unclassified (2 sources) Requires influenza virus vaccination; Translations: [Need for prophylactic vaccination and inoculation, Influenza] Episodic Spondylosis; intervertebral disc disorders; other back problems (16 sources) Other spondylosis with radiculopathy, lumbar region; Translations: [Sacroiliitis, not elsewhere classified] Onset: 02-22-2022 Chronic Syncope (7 sources) Syncope and collapse; Translations: [Syncope and [...] Episodic/Chronic Immunizations and screening for infectious disease (7 sources) Vaccination given; Translations: [Encounter for immunization] [...] Onset: 06-13-2022 Episodic Other lower respiratory disease (7 sources) Dyspnea; Translations: [Other forms of dyspnea] Onset: 07-19-2016 Episodic Spondylosis; intervertebral disc disorders; other back problems (13 sources) Intervertebral disc disorders with radiculopathy, lumbar region; Translations: [Radiculopathy, lumbar region] Onset: 10-28-2013 Episodic Unclassified (1 source) LOW BACK PAIN, UNSPECIFIED; Translations: [LOW BACK PAIN, UNSPECIFIED] Onset: 06-19-2022 Results Test Name Value Interpretation Reference Range Facility CALCIUMon 10-03-2022 Calcium [Mass/Vol] 8.9 mg/dL Normal 8.5-10.1 [facility] Comment on above: Performed By: #### VALERIO MADRIGAL #### [facility] [address] [place] [address] Dr. Dang Grimm CREATININEon 10-03-2022 Creatinine [Mass/Vol] 1.03 mg/dL Critically high 0.55-1.02 [facility] Comment on above: Performed By: #### VALERIO MADRIGAL #### [facility] [address] [place], [place] [address] Dr. Dang Grimm EGFR-AF PAPUA [place] GUINEAN >60 Normal >=60 [facility] Comment on above: Performed By: #### C VALERIO ADAMS #### [facility] [address] [place], [place] [address] Dr. Dang Grimm EGFR-NON AF PAPUA [place]AN 52 mL/min/1.73m2 Critically low >=60 [facility] Comment on above: Performed By: #### C VALERIO ADAMS #### [facility] [address] [place], [place] [address] Dr. Dang Grimm Covid-19 PCR ([facility])on SARS-CoV-2 (COVID-19) RNA GENARO+probe Ql (Unsp spec) Not detected Normal NOT DETECTED [facility] Comment on above: Result Comment: This test is not yet approved or cleared by the [place] FDA. When there are no FDA-approved or cleared tests available, and other criteria are met, FDA can make tests available under an emergency access mechanism called an Emergency Use Authorization (EUA). The EUA for this test is supported by the Radiochemical Technician of Health and Human Service's (HHS's) declaration [...] SARS-CoV-2. Performed By: #### C VDTBH #### [facility] [address] [place], [place] [address] Dr. Dang Grimm ANAon 04-20-2022 OCTVAIA PATTERN SPECKLED Normal The [facility] Comment on above: Result Comment: The MELCHOR [...] authority. Performed By: #### 1 0196 #### [facility] [address] OCTAVIA SCREEN 1:40 Normal <1:40,1:40 The [facility] Comment on above: Result Comment: Test performed using MELCHOR IFA OCTAVIA Hep-2 Test, a pre-standardized assay designed for the qualitative and semi-quantitative detection of antinuclear antibodies. Performed By: #### 1 0196 #### [facility] [address] C REACTIVE PROTEINon 022 CRP [Mass/Vol] 2.5 mg/L Normal 0.0-7.0 The [facility] Comment on above: Performed By: #### 6 1405, 57596 #### [facility] [address] CBC COMPLETE BLOOD COUNTon 0 04-20-2022 Erythrocyte distribution width (RBC) [Ratio] 12.4 % Normal 11.5-15.0 [facility] Comment on above: Performed By: #### 5 8216, 70296 #### [facility] [address] Hematocrit (Bld) [Volume fraction] 41.6 % Normal 36.0-45.0 [facility] Comment on above: Performed By: #### 5 6506, 02635 #### [facility] [address] Hemoglobin (Bld) [Mass/Vol] 13.7 g/dL Normal 12.0-15.0 [facility] Comment on above: Performed By: #### 5 6506, 61144 #### [facility] [address] MCH (RBC) [Entitic mass] 31.4 pg Normal 27.0-33.0 [facility] Comment on above: Performed By: #### 5 6506, 72084 #### [facility] [address] [facility] [place] [address], [facility] MCHC (RBC) [Mass/Vol] 32.9 g/dL Normal 32.0-35.0 [facility] Comment on above: Performed By: #### 5 6506, 77486 #### [facility] [address] [facility]. [address] MCV (RBC) [Entitic vol] 95.2 fL Normal 82.0-98.0 [facility] Comment on above: Performed By: #### 5 650, 80473 #### [facility] [address] [facility]. [address] Nucleated RBC/100 WBC (Bld) [Ratio] 0 % Normal 0-0 [facility] Comment on above: Performed By: #### 5 6506, 76497 #### [facility] [address] [facility]. [address] PLAT CNT 248 10*3/uL Normal 150-400 The [facility] Comment on above: Performed By: #### 5 6506, 00132 #### [facility] [address] [facility]. [address] RBC (Bld) [#/Vol] 4.37 10*6/uL Normal 3.80-5.00 The [facility] Comment on above: Performed By: #### 5 650, 95363 #### [facility] [address] [place] [address], [facility] WBC (Bld) [#/Vol] 5.54 10*3/uL Normal 4.00-10.60 [facility] Comment on above: Performed By: #### 5 6506, 46412 #### [address] CERVICAL SPINE 4 OR 5 VIEWSo n 04-20-2022 CERVICAL SPINE 4 OR 5 VIEWS [facility] Department of Radiology [address] [place] [id number] ===== Patient Name: LOBO MURDOCK : 1945 Sex: F Age: Race: White Pt. Location: [facility] Patient Status: O Ordered Date: 04/20/2022 10:50:00 [...] C3 Electronically signed: Christian Upton. Transcribed by: [email or web address], User Resident: Electronically Signed by: CHRISTIAN UPTON @ 04/20/2022 02:33 PM Normal [facility] Comment on above: Order Comment: Views (X-RAY, CERVICAL SPINE): AP, Lateral, Odontoid, Flexion, Extension COMP METABOLIC PANELon 04-20 Albumin [Mass/Vol] 4.1 g/dL Normal 3.5-5.7 [facility] Comment on above: Performed By: #### 3 5515, 18777, 22657 #### [facility] [address] [place] [address], [facility] ALKALINE PHOSPH 63 IU/L Normal 34-104 [facility] Comment on above: Performed By: #### 3 5515, 15220, 28166 #### [facility] [address] [place] [address], [place] ALT [Catalytic activity/Vol] 15 U/L Normal 7-52 [facility] Comment on above: Performed By: #### 3 5515, 19306, 75265 #### [facility] [address] [place] [address], [place] AST [Catalytic activity/Vol] 22 U/L Normal 13-39 [facility] Comment on above: Performed By: #### 3 5515, 43705, 62256 #### [facility] [address] [place] [address], [place] Bilirubin [Mass/Vol] 0.5 mg/dL Normal 0.3-1.0 [facility] Comment on above: Performed By: #### 3 5515, 71948, 21934 #### [facility] [address] [place] [address], [place] Calcium [Mass/Vol] 10.2 mg/dL Normal 8.6-10.3 [facility] Comment on above: Performed By: #### 3 5515, 58496, 76783 #### [facility] [address] [place] [address], [place] Chloride [Moles/Vol] 105 mmol/L Normal 98-107 [facility] Comment on above: Performed By: #### 3 5515, 98209, 09386 #### [facility] [address] [place] [address], [place] CO2 [Moles/Vol] 25 mmol/L Normal 21-31 [facility] Comment on above: Performed By: #### 3 5515, 01157, 58328 #### [facility] [address] [place] [address], [facility] Creatinine [Mass/Vol] 0.95 mg/dL Normal 0.60-1.20 [facility] Comment on above: Performed By: #### 3 5515, 43122, 66752 #### [facility] [address] [place] [address], [facility] GFR/1.73 sq M.predicted among non-blacks MDRD (S/P/Bld) [Vol rate/Area] mL/min/{1.73_m2} Normal >60 The [facility] Comment on above: Result Comment: The [facility]'s estimated glomerular filtration rate (eGFR) will no [...] of individuals. Performed By: #### 3 5515, 06940, 61916 #### [facility] [address] [place] [address], [place] Glucose [Mass/Vol] 88 mg/dL Normal 70-[address] [facility] Comment on above: Performed By: #### 3 5515, 03420, 73792 #### [facility] [address] [place] [address], [place] Potassium [Moles/Vol] 4.5 mmol/L Normal 3.5-5.1 [facility] Comment on above: Performed By: #### 3 5515, 63316, 47846 #### [facility] [address] [place] [address], [place] Protein [Mass/Vol] 6.8 g/dL Normal 6.0-8.[address] [facility] Comment on above: Performed By: #### 3 5515, 33968, 45055 #### [facility] [address] [place] [address], [place] Sodium [Moles/Vol] 138 mmol/L Normal 136-[address] [facility] Comment on above: Performed By: #### 3 5515, 53327, 36968 #### [facility] [address] [place] [address], [place] Urea nitrogen [Mass/Vol] 29 mg/dL High 7-25 [facility] Comment on above: Performed By: #### 3 5515, 78461, 07234 #### [facility] [address] [place] [address], [facility] CYCLIC CITRULLINATED PEPTIDE [place] [id number] 04-20-2022 CYCLIC CIT PEP 2 Units Normal 0-19 The [facility] Comment on above: Result Comment: INTE RPRETIVE [...] be monitored and testing repeated. Performed By: [employer] [address] [place] [id number] Senior Financial Analyst: Brett Tamez MD, PhD FERRITINon 04-20-2022 Ferritin [Mass/Vol] 43 ng/mL Normal 11-307 [facility] Comment on above: Performed By: #### 3 5515, 09121, 59942 #### [address] HAND LEFT 3 VWSon 04-20-2022 HAND LEFT 3 VWS [facility] Department of Radiology [address] [place] [id number] ===== Patient Name: LOBO MURDOCK : 1945 Sex: F Age: Race: White Pt. Location: [facility] Patient Status: O Ordered Date: 04/20/2022 10:50:00 AM Completed Date: 04/20/2022 11:42 AM Requesting Provider: MICHAEL HAHN Attending Provider: ARIADNA NOLAN Report Copy To: Signs & Symptoms: M79.641 Pain in right hand I10 History: Chloe Comments: Evaluate Exam: HAND LEFT 3 VWS ===== HAND LEFT 3 S 04/20/2022 11:42 [...] report. Electronically signed: Chelita Lazcano. Transcribed by: [email or web address], User Resident: NIRMALA MONGE Electronically Signed by: CHELITA LAZCANO @ 04/20/2022 01:29 PM I personally read this/these film(s) with this resident Normal The [facility] Comment on above: Order Comment: Evalu ate HAND RIGHT 3 [facility] 2 HAND RIGHT 3 [facility] Department of Radiology [address] [place] [phone] ===== Patient Name: LOBO MURDOCK : 1945 Sex: F Age: Race: White Pt. Location: 264 Patient Status: O Ordered Date: 04/20/2022 10:50:00 AM Completed Date: 04/20/2022 11:42 AM Requesting Provider: MICHAEL HAHN Attending Provider: ARIADNA NOLAN Report Copy To: Signs & Symptoms: M79.641 Pain in right hand I10 History: [place] Comments: Evaluate Exam: HAND RIGHT 3 VWS [...] report. Electronically signed: Chelita Lazcano. Transcribed by: [email or web address], User Resident: NIRMALA MONGE Electronically Signed by: CHELITA LAZCANO @ 04/20/2022 01:43 PM I personally read this/these film(s) with this resident Normal [facility] Comment on above: Order Comment: Evalu ate RHEUMATOID FACTOR SERUMon RA <20 Normal 0-20 [facility] Comment on above: Performed By: #### 6 1405, 27183 #### [facility] [address] [place] [address], [facility] SEDIMENTATION RATEon 022 SED RATE 38 mm/hr High 0-20 [facility] Comment on above: Performed By: #### 5 6506, 39852 ####[facility] [place] [address], [facility] TIBC- INCLUDES IRONon 2021 FE SATURATION 30 % Normal 20-50 [facility] Comment on above: Performed By: #### 3 5515, 36342, 60026 #### [facility] [address] [place] [address], [facility] Iron [Mass/Vol] 115 ug/dL Normal 50-212 [facility] Comment on above: Performed By: #### 3 5515, 49456, 27409 #### [facility] [address] [place] [address], [facility] TIBC 378 mcg/dL Normal 250-450 [facility] Comment on above: Performed By: #### 3 5515, 77014, 61848 #### [facility] [address] [facility] [place] [address], [facility] UIBC 263 mcg/dL Normal 155-355 [facility] Comment on above: Performed By: #### 3 5515, 01134, 68152 #### [facility] [address] [place] [id number], [facility] CALCIUMon 04-09-2022 Calcium [Mass/Vol] 9.6 mg/dL Normal 8.5-10.1 [facility] Comment on above: Performed By: #### VALERIO MADRIGAL #### [facility] [address] [place] [id number] [address] Dang Grimm CREATININEon 04-09-2022 Creatinine [Mass/Vol] 1.07 mg/dL Critically high 0.55-1.02 [facility] Comment on above: Performed By: #### VALERIO MADRIGAL #### [facility] [address] [place] [address] [address] Dang Grimm EGFR-AF PAPUA [place] GUINEAN >60 Normal >=60 [facility] Comment on above: Performed By: #### VALERIO MADRIGAL #### [facility] [address] [place], [place] [address] Dr. Dang Grimm EGFR-NON AF PAPUA [place] 50 mL/min/1.73m2 Critically low >=60 [facility] Comment on above: Performed By: #### VALERIO MADRIGAL #### [facility] [address] [place] [id number] Dang Grimm Vital Signs Date Time Vital Sign Value Performing Clinician Facility 08-30-2023 10:30-0500 Body height 157.48 cm Patricia Stanford Other [facility] [employer] Other 08-30-2023 10:30-0500 Body mass index (BMI) [Ratio] 21.73 kg/m2 Patricia Stanford Other [facility] Other 08-30-2023 10:30-0500 Body weight 53.89 kg Patricia Stanford Other [facility] Other 08-30-2023 10:30-0500 Diastolic blood pressure 74 mm[Hg] Patricia Stanford Other [facility] Other 08-30-2023 10:30-0500 Systolic blood pressure 122 mm[Hg] Patricia Stanford Other [facility] Other 08-21-2023 13:45-0500 Body height 157.48 cm Imad Asaad Other [facility] Other 08-21-2023 13:45-0500 Body mass index (BMI) [Ratio] 21.58 kg/m2 Imad Asaad Other [facility] Other 08-21-2023 13:45-0500 Body weight 53.52 kg Imad Asaad Other [facility] Other 07-15-2023 11:30-0500 Body height 157.48 cm Patricia Stanford Other [facility] Other 07-15-2023 11:30-0500 Body mass index (BMI) [Ratio] 21.73 kg/m2 Patricia Stanford Other [facility] Other 07-15-2023 11:30-0500 Body weight 53.89 kg Patricia Stanford Other [facility] Other 07-15-2023 11:30-0500 Diastolic blood pressure 78 mm[Hg] Patricia Stanford Other [facility] Other 07-15-2023 11:30-0500 Systolic blood pressure 148 mm[Hg] Patricia Stanford Other [facility] [employer] Other Encounters Encounter Date Encounter Type Care Provider Facility Start: 09-23-2023 End: 09-23-2023 ambulatory Patricia Stanford Other [facility] Other Start: 09-23-2023 Telephone encounter Patricia Stanford [facility] Start: 09-09-2023 End: 09-09-2023 ambulatory CARI B APLING Not Available Start: 09-04-2023 End: 09-04-2023 ambulatory CARI B APLING Not Available Start: 09-03-2023 End: 09-03-2023 ambulatory Patricia Stanford Other [facility] Other Start: 09-03-2023 Telephone encounter Patricia Stanford [facility] [employer] Start: 08-30-2023 End: 08-30-2023 ambulatory Patricia Stanford Other [facility] Other Start: 08-30-2023 Office outpatient vi sit 15 minutes Patricia Stanford [facility] Start: 08-23-2023 End: 08-23-2023 ambulatory Patricia Stanford Other [facility] Other Start: 08-23-2023 Telephone encounter Patricia Abdoulaye [facility] Start: 08-21-2023 End: 08-21-2023 ambulatory Imad Asaad Other [facility] Other Start: 08-21-2023 Office outpatient ne w 45 minutes Imad Asaad [facility] Start: 07-15-2023 End: 07-15-2023 ambulatory Patricia Stanford Other [facility] Other Start: 07-15-2023 Office outpatient vi sit 15 minutes Patricia Stanford [facility] Start: 07-15-2023 Telephone encounter Patricia Abdoulaye [facility] Start: 10-03-2022 End: 10-05-[address] PATRICIA STANFORD Facility:[facility] Start: 09-27-2022 End: 09-28-[address] MASSIMO MATTHEWS . Facility:[facility] Start: 09-11-2022 End: 09-11-[address] MASSIMO MATTHEWS . Facility:[facility] Start: 09-07-2022 End: 10-17-[address] MASSIMO MATTHEWS . Facility:[facility] Start: 09-04-2022 End: 09-05-[address] MASSIMO MATTHEWS . Facility:[facility] Start: 07-26-2022 Encounter for preprocedural laboratory examination DR MASSIMO MATTHEWS . [facility] Start: 07-24-2022 End: 07-24-[address] [...] Start: 04-20-2022 End: 04-21-2022 ambulatory ARIADNA NOLAN Facility:[facility] Start: 04-09-2022 End: 04-10-[address] PATRICIA STANFORD Facility: Start: 02-27-2022 End: 02-28-2022 ambulatory DEFAULT PHYSICIAN Facility:[facility] Start: 02-22-2022 End: 02-23-[address] MASSIMO MATTHEWS . Facility: Start: 12-06-2021 ambulatory MICHELE SALDAÑA . Facility:[facility] Start: 11-30-2021 End: 12-01-[address] MASSIMO MATTHEWS . Facility: Start: 10-25-2020 Pre-procedure evaluation check Patricia Stanford Other [facility] Other Procedures Date Procedure Procedure Detail Performing Clinician Start: 07-10-2017 Screening mammography M nathanverna Stanford Other Start: 07-19-2016 General examination of patient Patricia Stanford Other Immunizations Immunization Date Immunization Notes Care Provider Kristen abreu 05-17-2022 zoster vaccine, live Patricia Stanford Other [facility] Other 04-23-2022 influenza virus vaccine, split virus (incl. purified surface antigen) Patricia Stanford Other [facility] Other 04-23-2022 pneumococcal polysaccharide vaccine, 23 valent Patricia Stanford Other [facility] Other 04-23-2022 tetanus toxoid, adsorbed Patricia Stanford Other [facility] Other 05-25-2021 influenza virus vaccine, split virus (incl. purified surface antigen) Patricia Stanford Other [employer] Other 10-18-2020 COVID-19 Vaccine Moderna - Documentation Purposes Only Patricia Stanford Other [employer] Other 09-19-2020 COVID-19 Vaccine Moderna - Documentation Purposes Only Patricia Stanford Other [employer] Other 04-16-2020 influenza virus vaccine, split virus (incl. purified surface antigen) Patricia Stanford Other [employer] Other 05-12-2019 influenza virus vaccine, split virus (incl. purified surface antigen) Patricia Stanford Other [employer] Other 04-18-2018 influenza virus vaccine, split virus (incl. purified surface antigen) Patricia Stanford Other [employer] Other 07-10-2017 pneumococcal conjuga te vaccine, 13 valent Patricia Stanford Other [employer] Other 04-18-2017 influenza virus vaccine, split virus (incl. purified surface antigen) Patricia Stanford Other [employer] Other 05-09-2016 influenza virus vaccine, split virus (incl. purified surface antigen) Patricia Stanford Other [employer] Other 05-27-2013 tetanus and diphther ia toxoids, adsorbed, preservative free, for adult use (5 Lf of tetanus toxoid and 2 Lf of diphtheria toxoid) Patricia Stanford Other [employer] Other 12-24-2011 pneumococcal polysaccharide vaccine, 23 valent Patricia Stanford Other [employer] Other Payers Date Payer Category Payer Medicare [id number] 1959 Unknown [id number] 1945 Unknown [id number] 2.16.8 40.1.281649.3.579.2.647 1946 Unknown [id number] 2.16.8 40.1.703899.3.579.2.647 1946 Unknown [id number] 2.16.84 0.1.276230.3.579.2.593 1946 Unknown [id number] 2.16.84 0.1.047164.3.579.2.593 1946 Unknown [id number] 2.16.84 0.1.392309.3.579.2.593 1946 Unknown [id number] 2.16.84 0.1.098648.3.579.2.593 1946 Unknown [id number] 2.16.84 0.1.124264.3.579.2.593 1946 Unknown [id number] 2.16.84 0.1.023439.3.579.2.593 1946 Unknown [id number] 2.16.84 0.1.138156.3.579.2.593 1946 Unknown [id number] 2.16.84 0.1.769210.3.579.2.593 1946 Unknown [id number] 2.16.84 0.1.240154.3.579.2.593 1946 Unknown [id number] 2.16.84 0.1.472485.3.579.2.593 1946 Unknown [id number] 2.16.84 0.1.570063.3.579.2.593 1946 Unknown [id number] 2.16.84 0.1.709592.3.579.2.593 1946 Unknown [id number] 2.16.84 0.1.464116.3.579.2.593 1946 Unknown [id number] 2.16.84 0.1.527086.3.579.2.593 1946 Unknown [id number] 2.16.84 0.1.022968.3.579.2.1259 1946 Unknown [id number] 2.16.84 0.1.924227.3.579.2.1259 Unknown Social History Date Type Detail Facility Unknown if ever smoked [employer] Other Sex Assigned At Sex Assigned At Bir th [employer] Other Clinical Notes 11-30-2021 to 08-30-2023 Note [...] try OTC ones in meantime. Referral placed. [employer] Other 01-10-2024 Evaluation note* Encounter Date Diagnosis Assessment Notes Treatment Notes Treatment Clinical Notes Aug, GERD (gastroesophageal reflux disease) (ICD-10 - K21.9) Aug, Chronic diarrhea (ICD-10 - K52.9) Patient reports that her last colonoscopy was at the [facility] about 11 years ago and that she can not remember who preformed the procedure Aug, Abdominal pain (ICD-10 - R10.9) Aug, Weight loss, unintentional (ICD-10 - R63.4) Aug, Change in bowel habits (ICD-10 - R19.4) Lizbeth is advised to have a colonoscopy ordered, scheduled and prep instructions given today Risks and benefits of procedure explained to patient; patient verbalizes understanding. [employer] Other 12-04-2023 Evaluation note* Encounter Date Diagnosis [...] (ICD-10 - M81.0) Due for Dexa 08/2023 [employer] Other 02-16-2023 NoteCONSULTATION CONSULTATION DATE: 09/27/2022 HISTORY OF PRESENT ILLNESS: This is a 76-year-old female who returns to the clinic status post LES on 09/11/2022. The patient states she was afforded between 50-60% relief. Depending on her physical activity, determines her level of comfort. 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, housework and lifting greatly aggravate her [...] Patient is in agreement with this plan.[id number] NoteCONSULTATION CONSULTATION DATE: 09/04/2022 HISTORY OF PRESENT [...] patient understands and would like to proceed.[id number] NoteCONSULTATION CONSULTATION DATE: 07/11/2022 HISTORY OF PRESENT [...] followed up in the clinic post procedure.[id number] NoteCONSULTATION PROCEDURE DATE: 07/11/2022 PREOPERATIVE DIAGNOSIS: Bilateral [...] will be followed up in the clinic.[facility] 06-06-2022 NoteCONSULTATION CONSULTATION DATE: 06/06/2022 HISTORY OF [...] pain returning. 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 The patient has not seen a company dancer in the past. REVIEW OF SYSTEMS, PAST [...] mg q.h.s. A referral to rheumatology near [place] will be sent on her behalf and I highly encouraged her to seek consultation, particularly since she has a familial history of autoimmune diseases. The patient agrees with the plan of care and will be followed up in the office in three months' time. [facility] Signed and Approved by: MICHELE SALDAÑA . 03/02/2022 14:16:00[facility]04-21-2022 NoteCONSULTATION Consultation Date:11/30/2021 PREOPERATIVE DIAGNOSIS: Right gluteal [...] will be followed up in the office. [facility] Signed and Approved by: MICHELE SALDAÑA . 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 Lying down and using heat decrease her pain. Prior to the procedure, she was in a state of acute pain and was placed on a short term course of [place] 5/325 b.i.d. p.r.n. Patient states she only [...] of care and would like to proceed. [facility] Signed and Approved by: MICHELE SALDAÑA . 12/06/2021 16:15:00[facility] noteNo InformationN[facility] [employer] Other History general Narrative - Reported* Type [...] shoulder pain 1982 Hospitalization History migraines 1992 [place] [facility] Other Summary Purpose Family History No Family History Records FoundNo Family History Records FoundNo Family History Records Found Advance Directives No Advanced Directives Records FoundNo Advanced Directives Records FoundNo Advanced Directives Records Found Reason for Referral Reason diarrhea x 6 weeks a nd increased heartburn. Diagnosis 1 Chronic diarrhea (K5 2.9) Referral Organization [facility] Referring Provider First Name Patricia Referring Provider Last Name Abdoulaye Referring Provider Specialty [facility] Tier 1 Performance Referred [facility] Referred Address [address],[address] Referred Provider Specialty Gastroentero logy Referral Priority Routine Reason *FU 09/06 R foot p ain Diagnosis 1 Pain of left great t oe (M15.928) Referral Organization [facility] Referring Provider First Name Patricia Referring Provider Last Name Abdoulaye Referring Provider Specialty [facility] Organization [facility] Referred Provider Odin Chong Referred Address [address], [place],[address] Referred Provider Specialty Podiatry - S urgical Chiropody Referral Priority Routine General Notes JacobTrevor pollackya 12:44:49 PM >received today, notes locked, ins attached, referral faxed Additional Source Comments INFORMATION SOURCE (unrecogn ized section and content) DATE CREATED AUTHOR 05/09/2022 [facility] DATE CREATED AUTHOR AUTHOR'S ORGANIZ ATION 11/17/2022 [facility] DATE CREATED AUTHOR AUTHOR'S ORGANIZ ATION 09/09/2023 [facility] EPIC REASON FOR VISIT (unrecogniz ed section and content) Stomach/Bowel IssueslabsPATI ENT IS HERE AT THE REQUEST OF DR. STANFORD FOR CHRONIC DIARRHEA, ABD PAIN, WEIGHT LOSS & HEARTBURNdexaLeft FootGI CONSULTmessage FOR RECORDS PERTAINING TO PATIENTS WHO ARE [...] BE BASED ON THE PRIMARY CLINICAL RECORDS. [facility] [employer] [facility]. provides no warranty or guarantee of the accuracy or completeness of information in this document.
--- NOTE | 2023-09-25 11:12 | PM.CN ---
Consult Note: HPI Data of Consult Patient: known to practice within the last 3 years Consult date: 05/29/23 Requesting Physician: Melissa Soni NP Primary Care Provider: Patricia Nicolas MD Consult Narrative Reason for consult: f/u Narrative: Arianne Ko a pleasant 77 year old female presents for evaluation of chronic low back and right SIJ pain. Today pain is 4-5/10, increases to 9-9/10 with activity, and sitting on right side. She continues to utilize tramadol PRN with benefit, finds benefit from baclofen and diclofenac. Is awaiting evaluation from [facility] for consideration of R SIJ fusion. cc:: CC: Melissa Soni NP Review of Systems ROS Status of ROS 10 or more systems reviewed and unremarkable except as noted in history and below Musculoskeletal Reports: back pain and joint pain PFSH PFSH Medical History Acid reflux ?K21.9 - Gastro-esophageal reflux disease without esophagitis (ICD-10) Heartburn ?R12 - Heartburn (ICD-10) Low back pain ?M54.50 - Low back pain, unspecified (ICD-10) Neck pain ?M54.2 - Cervicalgia (ICD-10) Osteoarthritis ?M19.90 - Unspecified osteoarthritis, unspecified site (ICD-10) Osteopenia ?M85.80 - Other specified disorders of bone density and structure, unspecified site (ICD-10) Surgical History H/O shoulder surgery ?Z98.890 - Other specified postprocedural states (ICD-10) History of ear, nose, and throat (ENT) surgery ?Z98.890 - Other specified postprocedural states (ICD-10) H/O carpal tunnel repair ?Z98.890 - Other specified postprocedural states (ICD-10) H/O wrist surgery ?Z98.890 - Other specified postprocedural states (ICD-10) H/O section ?Z98.891 - History of uterine scar from previous surgery (ICD-10) Meds Home Medications and Allergies Home Medications Medication Instructions Recorded Confirmed Type OSCAL WITH VITAMIN D3 PO BID 04/10/23 History baclofen 10 mg tablet 10 mg PO .HS 04/10/23 05/06/23 History denosumab 60 mg/mL subcutaneous 60 mg subcut .[id number] 04/10/23 05/06/23 History syringe (Prolia) diclofenac sodium 50 mg 50 mg PO BID 04/10/23 05/06/23 History tablet,delayed release duloxetine 30 mg capsule,delayed 30 mg PO QDAY 04/10/23 05/06/23 History release geriatric multivitamin-min cap PO BID 04/10/23 History lidocaine 5 % topical cream 1 applic topical TID PRN pain 04/10/23 05/06/23 History magnesium 200 mg tablet 400 mg PO BID 04/10/23 05/06/23 History omega 7-say-pcl-fish oil 1,000 mg 1 cap PO DAILY 04/10/23 05/06/23 History (120 mg-180 mg) capsule (Fish Oil) tramadol 50 mg tablet 50 mg PO BID PRN pain 04/10/23 05/06/23 History hyoscyamine sulfate 0.125 mg 0.125 mg PO TID-QID PRN dyspepsia 07/24/23 07/24/23 History tablet (Levsin) pantoprazole 40 mg tablet,delayed 40 mg PO DAILY 07/24/23 07/24/23 History release Allergies Allergy/AdvReac Type Severity Reaction Status Date / Time No Known Drug Allergies Allergy Verified 05/06/23 10:43 Exam Constitutional Documenting provider has reviewed patient's vital signs: yes Common normals: no apparent distress, oriented x3, healthy appearing, alert and well nourished General appearance: cooperative [facility] Common normals: normocephalic, hearing grossly normal bilaterally and moist oral mucous membranes Head and scalp: normocephalic Eye Common normals: PERRL Pupil: PERRL Neck & C-Spine Common normals: full ROM General: normal visual inspection Chest Common normals: inspection of chest normal Respiratory Common normals: normal respiratory effort, no retractions and no use of accessory muscles Back & Pelvis Lumbar spine/lower back: ROM limited and pain with ROM Sacroiliac joints: SI joint(s) abnormal (bilateral positive DEVON, thigh thrust, stephanie test. Worse on right side. ) SI joint details: tender to palpation (R>L) Extremity Common normals: normal to inspection and full ROM Neuro Common normals: oriented x3, CN's II-XII intact bilaterally, moves all extremities, no focal motor deficits, no sensory deficits noted, deep tendon reflexes 2+ bilaterally and gait normal Sensorium/orientation: alert Gait (neuro): antalgic Motor exam: strength 5/5 throughout and no movement abnormalities noted Psych Common normals: mental status grossly normal, thought process normal, cooperative, affect normal, speech normal and activity/motor behavior normal Speech: normal speech Thought process: normal thought process Results Additional Findings Additional findings: I have checked an OARRS report on this patient today and there are no aberrancies noted in the prescribing history.?? A drug screen was completed and reviewed within the last year, and if there has not been a drug screen completed we ordered one today to monitor higher risk, state monitored pain medication use. As part of providing excellent, safe, comprehensive care, the following was completed at our patient's visit: 1. A medication reconciliation and review to ensure accurate knowledge of current/active medications, including asking our patients to inform us about any pziu-ghg-[id number] medications or herbal remedies/nutritional supplements/alternative remedies. 2. A review to specifically ensure our patients have had annual screening for: elevated body mass index (BMI), tobacco use, screening for depression, and screening for unhealthy alcohol use. When screening is concerning, patients are provided with education and the specific recommendation to discuss the concerning health issue and treatment options with their primary care provider. Assessment and Plan Assessment and Plan (1) Lumbar spondylosis: Assessment and Plan: The patient has had over 3 months of moderate to severe low back pain with functional impairment and inadequate response to conservative care including NSAIDS (unless there are contraindication such as concurrent blood thinners), multiple oral or topical pain medications, and home exercise program/physical therapy.? Patient has completed >6 weeks of guided home exercise program and/or formal physical therapy program without relief of their symptoms.? I have reviewed the imaging of the lumbar spine and no red flags were identified.? The imaging reveals radiographic findings consistent with lumbar spondylosis/lumbar facet arthropathy We discussed the risks and benefits of the procedure with the patient, and we are NOT planning on using sedation as outlined in the guidelines from Medicare unless there is a documented reason that sedation would be strongly recommended.?? ?The procedure will be completed with fluoroscopic guidance.? (2) Sacroiliac joint dysfunction of right side: (3) Sacroiliac joint pain: (4) Muscle spasm: (5) Chronically on opiate therapy: Plan repeat bilateral L4-5 L5-S1 facet medial branch RFA under fluoroscopy, risks vs benefits discussed, will prescribe 5mg PO Valium prior to procedure. previous RFA provided >50% improvement in pain and functional ability greater than 6 months continue PRN tramadol 50mg for moderate to severe pain continue HEP as tolerated f/u with NS as planned f/u 1 month after RFA
== END 2023-09-25 10:54 | disposition home or self-care (01) ==
LOC: PM 10:59
PROVIDERS: PCP Family Medicine; Visit Provider Nurse Practitioner
DX: M53.3 Sacrococcygeal disorders, not elsewhere classified (principal); M62.838 Other muscle spasm; Z79.891 Long term (current) use of opiate analgesic
CPT/HCPCS: G0463

== ENCOUNTER 2023-10-14 07:48 | Day surgery (SDC) | payer MEDICARE, SELFPAY ==
--- OUTSIDE RECORDS SUMMARY | 2023-10-14 07:51 | XMS_ITS | CCD ---
Author Name Unknown Address [address] [facility] [address] [place] [address] Organization [facility] Care Team Providers Care Credit Reporter Name Role Phone PHYSICIAN, DEFAULT Admitting Unavailable [...] MATTHEWS ., DR MASSIMO Cook Attending Unavailable BYORN ., DR MASSIMO Cook Admitting Unavailable BYRON ., DR MASSIMO Cook Consulting Unavailable ABDOULAYE, DR PATRICIA Crain Primary Care Unavailable BYRON ., DR MASSIMO Cook Attending Unavailable STANFORD, DR PATRICIA Crain Consulting Unavailable [...] BYRON ., DR MASSIMO Cook Consulting Unavailable Patricia Stanford Unavailable Asaravindra, Imad Unavailable CARI NAVA Attending Unavailable CARI NAVA Attending Unavailable MD Patricia Stanford Primary Care Provider MD Sunny Torres Attending Provider Patricia Stanford Primary Care Unavailable Asaad, Imravindra Attending Unavailable Asaad, Imad Admitting Unavailable Allergies Allergy Classification Reported Allergen(s) Allergy Type Date of Onset Reaction(s) Facility (7 sources) Calcitonin ([place]) *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 Propensity to adverse reactions Comment:severe weakness [employer] Other Medications Current Medications Medication Drug Class(es) Dates Sig (Normalized) Sig (Original) baclofen 10 mg oral tablet (8 sources) gamma-Aminobutyri c Acid-ergic Agonist Start: 10-02-2023 take 10 mg by mouth once daily Baclofen Active 10 MG PO Daily October 02, 2023 12:00am Start: 10-25-2020 take 1 tablet by brijesh th once daily at bedtime as needed Baclofen 10 MG 1 tablet as needed Orally Once a day at HS for 0 days Oct, Active Citracal Plus - (7 sources) Start: 10-25-2020 Citracal Plus - as directed Orally once a day for 0 days Oct, Active denosumab (7 sources) RANK Ligand Inhibitor Start: 08-13-2019 Prolia 60MG/ML Prolia 60MG/ML, # 0, 08/13/2019, No Refill. Active Subcutaneous for 0 *Pick strength-form from [employer] for eRX* Aug, Active diclofenac sodium 50 mg delayed release oral tablet (8 sources) Nonsteroidal Anti-inflammatory Drug Start: 10-02-2023 take 50 mg by mouth once daily Diclofenac Sodium Active 50 MG PO Daily October 02, 2023 12:00am Start: 10-25-2020 take 1 tablet by brijesh th every twelve hours Diclofenac Sodium 50 MG [...] day for 0 days *Pick strength-form from [employer] for eRX* Oct, Active Multiple Vitamin (7 sources) take 1 tablet by mouth once daily Multiple Vitamin 1 tablet Orally Once a day Active pantoprazole 40 mg delayed release oral tablet (9 sources) Proton Pump Inhibitor Start: 10-02-2023 End: 10-02-2023 take 40 mg by mouth once daily Pantoprazole Active 40 MG PO Daily October 02, 2023 10:00am Start: 07-15-2023 take 1 tablet by brijesh th every twenty-four hours Pantoprazole Sodium 40 MG [...] Other aftercare (7 sources) 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; 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] Episodic Other connective [...] Test Name Value Interpretation Reference Range Facility [facility] 10-02-2023 L Specimen: [id number] Received: 10/02/23 Status: OJ Req Num: [id number] Spec Type: Surgical Subm Dr: Sunny Torres MD Tissues: A GASTRIC FOR HP (GASTRIC BX R/O H.PYLORI) B Colon Biopsy (RANDOM COLON BX R/O MICROSCO) Procedures: HE/4, Gross/Micro L4/2, H PYLORI Age/ Patient Sex Location Account Attending Physician Lobo Murdock [id number]/F [id number] Sunny Torres MD SPEC NUM: [id number] RECD: 10/02/23 STATUS: OJ BRICE NUM: [id number] TEO: 10/02/[address]: Sunny Torres MD ENTERED: 10/02/23 [facility] DR: SPEC TYPE: Surgical DEPT: S ORDERED: HE/4, Gross/Micro L4/2, H PYLORI ORDERED: HE/4, Gross/Micro L4/2, H PYLORI Pathological Diagnosis A, gastric biopsy: -Antral mucosa with mild chronic reactive gastropathy, including minor congestion, and mild stromal expansion in lamina propria in at least 1 fragment, otherwise without intestinal metaplasia, erosion, or any significant stromal chronic inflammation observed -H. pylori immunostain with appropriate control is also negative for identified Helicobacter organism or infection B, random colon biopsy: -Moderate chronic inflammation with the associated chronic collagenous colitis are apparent in both fragments, including the occasionally noted lymphocytic exocytosis, otherwise without glandular dysplasia, or any other specific features of chronic inflammatory bowel disease identified Clinical Information GERD, change in bowel habits; rule out H. pylori (A); rule out microscopic colitis (B) Gross Description A. Received in formalin labeled with the patient's name, date of and gastric biopsy are 2 galvan soft tissue fragments, 0.2 and 0.3 cm in greatest dimension. Entirely submitted in one cassette labeled A1. B. Received in formalin labeled with the patient's name, date of and random colon Specimen: [id number] Received: 10/02/23 Status: OJ Brice Num: [id number] Spec Type: Surgical Subm Dr: Sunny Torres MD Tissues: A GASTRIC FOR HP (GASTRIC BX R/O H.PYLORI) B Colon Biopsy (RANDOM COLON BX R/O MICROSCO) Procedures: HE/4, Gross/Micro L4/2, H PYLORI Patient: MaikelLobo [id number] (Continued) Specimen: [id number] Received: 10/02/23 (Continued) Gross Description (Continued) Signed (signature on file) Patito Grimm MD 10/03/23 1430 Specimen: [id number] Received: 10/02/23 Status: OJ Brice Num: [id number] Spec Type: Surgical Subm Dr: Sunny Torres MD Tissues: A GASTRIC FOR HP (GASTRIC BX R/O H.PYLORI) B Colon Biopsy (RANDOM COLON BX R/O MICROSCO) Procedures: HE/4, Gross/Micro L4/2, H PYLORI Patient: MurdockLobo pollack [id number] (Continued) Specimen: [id number] Received: 10/02/23 (Continued) Gross Description (Continued) biopsy are 2 galvan translucent soft tissue fragments, 0.3 and 0.6 cm in greatest dimensions. Entirely submitted in one cassette labeled B1. CPT Codes [id number] Specimen: [id number] Received: 10/02/23-1022 Status: OJ Brice Num: [id number] Spec Type: Surgical Subm Dr: Sunny Torres MD Tissues: A GASTRIC FOR HP (GASTRIC BX R/O H.PYLORI) B Colon Biopsy (RANDOM COLON BX R/O MICROSCO) Procedures: HE/4, Gross/Micro L4/2, H PYLORI Patient: Lobo Murdock [id number] (Continued) Signed (signature on file) Patito Grimm MD 10/03/23 1430 [facility] CALCIUMon 10-03-2022 Calcium [Mass/Vol] 8.9 mg/dL Normal 8.5-10.1 The [facility] Comment on above: Performed By: #### C VALERIO ADAMS #### [facility] [address] [place] [address] Dr. Dang Grimm CREATININEon 10-03-2022 Creatinine [Mass/Vol] 1.03 mg/dL Critically high 0.55-1.02 [facility] Comment on above: Performed By: #### C ANGIE, [place] #### [facility] [address] [place], [place] [address] Dr. Dang Grimm EGFR-AF MARTINIQUAIS >60 Normal >=60 The [facility] Comment on above: Performed By: #### C ANGIE, [place] #### [facility] [address] [place], [place] [address] Dr. Dang Grimm EGFR-NON AF MARTINIQUAIS 52 mL/min/1.73m2 Critically low >=60 The [facility] Comment on above: Performed By: #### C ANGIE, [place] #### [facility] [address] [place], [place] [address] Dr. Dang Grimm Covid-19 PCR ([facility])on SARS-CoV-2 (COVID-19) RNA GENARO+probe Ql (Unsp spec) Not detected Normal NOT DETECTED The [facility] Comment on above: Result Comment: This test is not yet approved or cleared by the [place] FDA. When there are no FDA-approved or cleared tests available, and other criteria are met, FDA can make tests available under an emergency access mechanism called an Emergency Use Authorization (EUA). The EUA for this test is supported by the Hydraulic Strainer Operator of Health and Human Service's (HHS's) declaration [...] SARS-CoV-2. Performed By: #### C VDTBH #### [facility] [address] [place] [address] [address] Dang Archer 04-20-2022 OCTAVIA PATTERN SPECKLED Normal The [facility] Comment on above: Result Comment: The [...] authority. Performed By: #### 1 0196 #### [facility] [address] OCTAVIA SCREEN 1:40 Normal <1:40,1:40 The [facility] Comment on above: Result Comment: Test performed using MELCHOR IFA OCTAVIA Hep-2 Test, a pre-standardized assay designed for the qualitative and semi-quantitative detection of antinuclear antibodies. Performed By: #### 1 0196 #### [facility] [address] C REACTIVE PROTEINon 022 CRP [Mass/Vol] 2.5 mg/L Normal 0.0-7.0 The [facility] Comment on above: Performed By: #### 6 1405, 92947 #### [facility] [address] CBC COMPLETE BLOOD COUNTon 0 04-20-2022 Erythrocyte distribution width (RBC) [Ratio] 12.4 % Normal 11.5-15.0 The [facility] Comment on above: Performed By: #### 5 3966, 62092 #### [facility] [address] Hematocrit (Bld) [Volume fraction] 41.6 % Normal 36.0-45.0 [facility] Comment on above: Performed By: #### 5 6506, 16511 #### [facility] [address] Hemoglobin (Bld) [Mass/Vol] 13.7 g/dL Normal 12.0-15.0 [facility] Comment on above: Performed By: #### 5 6506, 75505 #### [facility] [address] [place] [address], [facility] MCH (RBC) [Entitic mass] 31.4 pg Normal 27.0-33.0 The [facility] Comment on above: Performed By: #### 5 650, 16273 #### [facility] [address] [place] [id number], [facility] MCHC (RBC) [Mass/Vol] 32.9 g/dL Normal 32.0-35.0 [facility] Comment on above: Performed By: #### 5 6506, 71722 #### [facility] [address] [place] [address], [facility] MCV (RBC) [Entitic vol] 95.2 fL Normal 82.0-98.0 [facility] Comment on above: Performed By: #### 5 650, 85970 #### [facility] [address] [facility] [place] [address], [facility] Nucleated RBC/100 WBC (Bld) [Ratio] 0 % Normal 0-0 The [facility] Comment on above: Performed By: #### 5 6506, 26887 #### [facility] [address] [place] [id number], [facility] PLAT CNT 248 10*3/uL Normal 150-400 The [facility] Comment on above: Performed By: #### 5 650, 93013 #### [facility] [address] [place] [address], [facility] RBC (Bld) [#/Vol] 4.37 10*6/uL Normal 3.80-5.00 The [facility] Comment on above: Performed By: #### 5 650, 89391 #### [facility] [address] [place] [address], [place] WBC (Bld) [#/Vol] 5.54 10*3/uL Normal 4.00-10.60 [facility] Comment on above: Performed By: #### 5 6506, 98886 #### [address] CERVICAL SPINE 4 OR 5 VIEWSo 04-20-2022 CERVICAL SPINE 4 OR 5 VIEWS [facility] Department of Radiology [address] [place] [id number] ===== Patient Name: LOBO MURDOCK : 1945 Sex: F Age: Race: White Pt. Location: [facility] Patient Status: O Ordered Date: 04/20/2022 10:50:00 AM Completed Date: 04/20/2022 11:42 AM Requesting Provider: MICHAEL HAHN Attending Provider: ARIADNA NOLAN Report Copy To: Signs & Symptoms: M54.2 Cervicalgia I10 History: [place] Comments: Views (X-RAY, CERVICAL SPINE): AP, Lateral, [...] C3 Electronically signed: Christian Upton. Transcribed by: [email or web address], User Resident: Electronically Signed by: CHRISTIAN UPTON @ 04/20/2022 02:33 PM Normal [facility] Comment on above: Order Comment: Views (X-RAY, CERVICAL SPINE): AP, Lateral, Odontoid, Flexion, Extension COMP METABOLIC PANELon 04-20 Albumin [Mass/Vol] 4.1 g/dL Normal 3.5-5.7 [facility] Comment on above: Performed By: #### 3 5515, 37176, 36304 #### [facility] [address] ALKALINE PHOSPH 63 IU/L Normal 34-104 [facility] Comment on above: Performed By: #### 3 5515, 26230, 93062 #### [facility] [address] [place] [address], [facility] ALT [Catalytic activity/Vol] 15 U/L Normal 7-52 [facility] Comment on above: Performed By: #### 3 5515, 60990, 75519 #### [facility] [address] [facility] [address], [facility] AST [Catalytic activity/Vol] 22 U/L Normal 13-39 The [facility] Comment on above: Performed By: #### 3 5515, 82597, 30820 #### [facility] [address] [place] [address], [facility] Bilirubin [Mass/Vol] 0.5 mg/dL Normal 0.3-1.0 [facility] Comment on above: Performed By: #### 3 5515, 70951, 24447 #### [facility] [address] [place] [address], [place] Calcium [Mass/Vol] 10.2 mg/dL Normal 8.6-10.3 [facility] Comment on above: Performed By: #### 3 5515, 56507, 43515 #### [facility] [address] [place] [address], [place] Chloride [Moles/Vol] 105 mmol/L Normal 98-107 [facility] Comment on above: Performed By: #### 3 5515, 94755, 59510 #### [facility] [address] [place] [address], [place] CO2 [Moles/Vol] 25 mmol/L Normal 21-31 [facility] Comment on above: Performed By: #### 3 5515, 32514, 93516 #### [facility] [address] [place] [address], [place] Creatinine [Mass/Vol] 0.95 mg/dL Normal 0.60-1.20 [facility] Comment on above: Performed By: #### 3 5515, 33849, 68764 #### [facility] [address] [place] [address], [place] GFR/1.73 sq M.predicted among non-blacks MDRD (S/P/Bld) [Vol rate/Area] mL/min/{1.73_m2} Normal >60 The [facility] Comment on above: Result Comment: The [facility]'s estimated glomerular filtration rate (eGFR) will no [...] of individuals. Performed By: #### 3 5515, 89452, 86456 #### [facility] [address] [place] [address], [place] Glucose [Mass/Vol] 88 mg/dL Normal 70-100 The [facility] Comment on above: Performed By: #### 3 5515, 08673, 29411 #### [facility] [address] [place] [address], [place] Potassium [Moles/Vol] 4.5 mmol/L Normal 3.5-5.1 [facility] Comment on above: Performed By: #### 3 5515, 47915, 49551 #### [facility] [address] [place] [address], [place] Protein [Mass/Vol] 6.8 g/dL Normal 6.0-8.3 The [facility] Comment on above: Performed By: #### 3 5515, 70606, 97587 #### [facility] [address] [place] [address], [place] Sodium [Moles/Vol] 138 mmol/L Normal 136-145 The [facility] Comment on above: Performed By: #### 3 5515, 33262, 83104 #### [facility] [address] [place] [address], [place] Urea nitrogen [Mass/Vol] 29 mg/dL High 7-25 [facility] Comment on above: Performed By: #### 3 5515, 74440, 51618 #### [facility] [address] [place] [address], [place] CYCLIC CITRULLINATED PEPTIDE [place] [id number] 04-20-2022 CYCLIC CIT PEP 2 Units Normal 0-19 The [facility] Comment on above: Result Comment: INTE [...] be monitored and testing repeated. Performed By: [facility] [address] [place] [address] [employer] Machinist: Brett Tamez MD, PhD FERRITINon 04-20-2022 Ferritin [Mass/Vol] 43 ng/mL Normal 11-307 [facility] Comment on above: Performed By: #### 3 5515, 51961, 40348 #### [address] [facility] HAND LEFT 3 S [facility] Department of Radiology [address] [place] [id number] ===== Patient Name: LOBO MURDOCK : 1945 Sex: F Age: Race: White [place]. Location: [facility] Patient Status: O Ordered Date: 04/20/2022 10:50:00 AM Completed Date: 04/20/2022 11:42 AM Requesting Provider: MICHAEL HAHN Attending Provider: ARIADNA NOLAN Report Copy To: Signs & Symptoms: M79.641 Pain in right hand I10 History: [place] Comments: Evaluate Exam: HAND LEFT 3 [facility] ===== HAND LEFT 3 S 04/20/2022 [...] report. Electronically signed: Chelita Lazcano. Transcribed by: [email or web address], User Resident: NIRMALA MONGE Electronically Signed by: CHELITA LAZCANO @ 04/20/2022 01:29 PM I personally read this/these film(s) with this resident Normal The [facility] Comment on above: Order Comment: Evalu ate HAND RIGHT 3 [facility] 2 HAND RIGHT 3 [facility] Department of Radiology [address] [place] [phone] ===== Patient Name: LOBO MURDOCK : 1945 Sex: F Age: Race: White [place]. Location: [facility] Patient Status: O Ordered Date: 04/20/2022 10:50:00 AM Completed Date: 04/20/2022 11:42 AM Requesting Provider: MICHAEL HAHN Attending Provider: ARIADNA NOLAN Report Copy To: Signs & Symptoms: M79.641 Pain in right hand I10 History: [place] Comments: Evaluate Exam: HAND RIGHT 3 V[facility] [...] report. Electronically signed: Chelita Lazcano. Transcribed by: [email or web address], User Resident: NIRMALA MONGE Electronically Signed by: CHELITA LAZCANO @ 04/20/2022 01:43 PM I personally read this/these film(s) with this resident Normal The [facility] Comment on above: Order Comment: Evalu ate RHEUMATOID FACTOR SERUMon RA <20 Normal 0-20 [facility] Comment on above: Performed By: #### 6 1405, 55821 #### [facility] [address] [place] [address], [facility] SEDIMENTATION RATEon 022 SED RATE 38 mm/hr High 0-20 [facility] Comment on above: Performed By: #### 5 6506, 13348 ####[facility] [place] [address], [facility] TIBC- INCLUDES IRONon 2021 FE SATURATION 30 % Normal 20-50 [facility] Comment on above: Performed By: #### 3 5515, 92159, 81465 #### [facility] [address] [place] [address], [facility] Iron [Mass/Vol] 115 ug/dL Normal 50-212 [facility] Comment on above: Performed By: #### 3 5515, 93850, 09672 #### [facility] [address] [place] [address], [facility] TIBC 378 mcg/dL Normal 250-450 [facility] Comment on above: Performed By: #### 3 5515, 23289, 62261 #### [facility] [address] [facility] [place] [address], [facility] UIBC 263 mcg/dL Normal 155-355 [facility] Comment on above: Performed By: #### 3 5515, 77859, 90471 #### [facility] [address] [place] [id number], [facility] CALCIUMon 04-09-2022 Calcium [Mass/Vol] 9.6 mg/dL Normal 8.5-10.1 [facility] Comment on above: Performed By: #### C VALERIO ADAMS #### [facility] [address] [place] [address] [address] Dang Grimm CREATININEon 04-09-2022 Creatinine [Mass/Vol] 1.07 mg/dL Critically high 0.55-1.02 [facility] Comment on above: Performed By: #### C ANGIE, [place] #### [facility] [address] [place] [address] [address] Dang Grimm EGFR-AF MARTINIQUAIS >60 Normal >=60 [facility] Comment on above: Performed By: #### C ANGIE, [place] #### [facility] [address] [place], [place] [address] Dr. Dang Grimm EGFR-NON AF MARTINIQUAIS 50 mL/min/1.73m2 Critically low >=60 [facility] Comment on above: Performed By: #### Bhumika ADAMS, [place] #### [facility] [address] [place] [address] [address] Dang Grimm Vital Signs Date Time Vital Sign Value Performing Clinician Facility 10-02-2023 09:55-0500 Diastolic blood pressure 67 mm[Hg] MD Patricia Stanford Work Phone: [facility] 10-02-2023 09:55-0500 Heart rate 80 /min MD Patricia Stanford Work Phone: [facility] 10-02-2023 09:55-0500 Respiratory rate 16 /min MD Patricia Stanford Work Phone: [facility] 10-02-2023 09:55-0500 SaO2% (BldA) [Mass fraction] 99 % MD Patricia Stanford Work Phone: [facility] 10-02-2023 09:55-0500 Systolic blood pressure 108 mm[Hg] MD Patricia Stanford Work Phone: [facility] 10-02-2023 07:07-0500 Body height 160.02 cm MD Patricia Stanford Work Phone: [facility] 10-02-2023 07:07-0500 Body weight 56.69 kg MD Patricia Stanford Work Phone: [facility] 08-30-2023 10:30-0500 Body height 157.48 cm Patricia Stanford Other [facility] 08-30-2023 10:30-0500 Body mass index (BMI) [Ratio] 21.73 kg/m2 Patricia Stanford Other [facility] [employer] Other 08-30-2023 10:30-0500 Body weight 53.89 kg Patricia Stanford Other [facility] [employer] Other 08-30-2023 10:30-0500 Body weight 53.88 kg MD Patricia Stanford Work Phone: [facility] 08-30-2023 10:30-0500 Diastolic blood pressure 74 mm[Hg] Patricia Stanford Other [facility] 08-30-2023 10:30-0500 Systolic blood pressure 122 mm[Hg] Patricia Stanford Other [facility] 08-21-2023 13:45-0500 Body height 157.48 cm Imad Asaad Other [facility] 08-21-2023 13:45-0500 Body mass index (BMI) [Ratio] 21.58 kg/m2 Imad Asaad Other [facility] [employer] Other 08-21-2023 13:45-0500 Body weight 53.52 kg Imad Asaad Other [facility] 07-15-2023 11:30-0500 Body height 157.48 cm Patricia Stanford Other [facility] 07-15-2023 11:30-0500 Body mass index (BMI) [Ratio] 21.73 kg/m2 Patricia Stanford Other [facility] [employer] Other 07-15-2023 11:30-0500 Body weight 53.89 kg Patricia Stanford Other [facility] [employer] Other 07-15-2023 11:30-0500 Body weight 53.88 kg MD Patricia Stanford Work Phone: [facility] 07-15-2023 11:30-0500 Diastolic blood pressure 78 mm[Hg] Patricia Stanford Other [facility] 07-15-2023 11:30-0500 Systolic blood pressure 148 mm[Hg] Patricia Stanford Other [facility] 07-06-2023 09:20-0500 Body height 157.48 cm MD Patricia Stanford Work Phone: [facility] 07-06-2023 09:20-0500 Body weight 55.51 kg MD Patricia Stanford Work Phone: [facility] Encounters Encounter Date Encounter Type Care Provider Facility Start: 10-02-2023 Non-patient / Non-visit MD Marlys Stanford Work Phone: [facility] Work Phone: Start: 10-02-2023 End: 10-02-2023 ambulatory Patricia Stanford Facility:[facility] Start: 10-02-2023 End: 10-02-2023 Admission to same day surgery center MD Patricia Stanford Work Phone: [facility] Work Phone: Start: 10-02-2023 End: 10-02-2023 ambulatory MD Patricia Stanford Work Phone: [facility] Work Phone: Start: 09-23-2023 End: 09-23-2023 ambulatory Patricia Stanford Other [employer] Other Start: 09-23-2023 Telephone encounter Patricia Stanford [facility] Start: 09-09-2023 End: 09-09-2023 ambulatory CARI B APLING Not Available Start: 09-04-2023 End: 09-04-2023 ambulatory CARI B APLING Not Available Start: 09-03-2023 End: 09-03-2023 ambulatory Patricia Stanford Other [employer] Other Start: 09-03-2023 Telephone encounter Patricia Stanford [employer] Start: 08-30-2023 End: 08-30-2023 ambulatory Patricia Stanford Other [employer] Other Start: 08-30-2023 Office outpatient vi sit 15 minutes Patricia Stanford [facility] Start: 08-30-2023 End: 08-30-2023 Patient encounter procedure MD Patricia Stanford Work Phone: [facility]- Start: 08-23-2023 End: 08-23-2023 ambulatory Patricia Stanford Other [employer] Other Start: 08-23-2023 Telephone encounter Patricia Stanford [employer] [facility] Start: 08-21-2023 End: 08-21-2023 ambulatory Imad Asaad Other [employer] [employer] Other Start: 08-21-2023 Office outpatient ne w 45 minutes Imad Asaad [facility] Start: 08-21-2023 End: 08-21-2023 Patient encounter procedure MD Patricia Stanford Work Phone: [facility] Work Phone: Start: 07-15-2023 End: 07-15-2023 ambulatory Patricia Stanford Other [employer] Other Start: 07-15-2023 Office outpatient vi sit 15 minutes Patricia Stanford [facility] Start: 07-15-2023 Telephone encounter Patricia Stanford [facility] Start: 07-15-2023 End: 07-15-2023 Patient encounter procedure MD Patricia Stanford Work Phone: [facility] Work Phone: Start: 07-06-2023 End: 07-06-2023 Patient encounter procedure MD Patricia Stanford Work Phone: [facility] Luis Alfredo Work Phone: Start: 10-03-2022 End: 10-05-[address] PATRICIA STANFORD Facility:[facility]1 Start: 09-27-2022 End: 09-28-[address] MASSIMO MATTHEWS . Facility:[facility] Start: 09-11-2022 End: 09-11-[address] MASSIMO MATTHEWS . Facility:[facility] Start: 09-07-2022 End: 10-17-[address] MASSIMO MATTHEWS . Facility:[facility] Start: 09-04-2022 End: 09-05-[address] MASSIMO MATTHEWS . Facility:[facility] Start: 07-26-2022 Encounter for preprocedural laboratory examination DR MASSIMO MATTHEWS . [facility] Start: 07-24-2022 End: 07-24-[address] MASSIMO [...] Start: 04-20-2022 End: 04-21-2022 ambulatory ARIADNA NOLAN Facility:[facility] Start: 04-09-2022 End: 04-10-[address] PATRICIA STANFORD Facility: Start: 02-27-2022 End: 02-28-2022 ambulatory DEFAULT PHYSICIAN Facility:[facility] Start: 02-22-2022 End: 02-23-[address] MASSIMO MATTHEWS . Facility:[facility] Start: 12-06-2021 ambulatory MICHELE SALDAÑA . Facility: 1 Start: 11-30-2021 End: 12-01-[address] MASSIMO MATTHEWS . Facility:[facility] Start: 10-25-2020 Pre-procedure evaluation check Patricia Stanford Other [employer] Other Procedures Date Procedure Procedure Detail Performing Clinician Start: 10-02-2023 Esophagogastroduodenoscopy MD Patricia fox Work Phone: Start: 07-10-2017 Screening mammography Patricia Stanford Other Start: 07-19-2016 General examination of patient Patricia padilla Other Plan of Treatment Date Care Activity Detail Author Start: 10-02-2023 [facility] Immunizations Immunization Date Immunization Notes Care Provider Fa cility 05-17-2022 zoster vaccine, live Patricia Stanford Other [facility] 04-23-2022 influenza virus vaccine, split virus (incl. purified surface antigen) Patricia Stanford Other [employer] Other 04-23-2022 influenza virus vaccine, unspecified formulation MD Patricia Stanford Work Phone: [facility] 04-23-2022 pneumococcal polysaccharide vaccine, 23 valent Patricia Stanford Other [facility] 04-23-2022 tetanus toxoid, adsorbed Patricia Stanford Other [facility] 05-25-2021 influenza virus vaccine, split virus (incl. purified surface antigen) Patricia Stanford Other [employer] Other 05-25-2021 influenza virus vaccine, unspecified formulation MD Patricia Stanford Work Phone: [facility] 10-18-2020 COVID-19 Vaccine Moderna - Documentation Purposes Only Patricia Stanford Other [facility] 09-19-2020 COVID-19 Vaccine Moderna - Documentation Purposes Only Patricia Stanford Other [facility] 04-16-2020 influenza virus vaccine, split virus (incl. purified surface antigen) Patricia Stanford Other [employer] Other 04-16-2020 influenza virus vaccine, unspecified formulation MD Patricia Stanford Work Phone: [facility] 05-12-2019 influenza virus vaccine, split virus (incl. purified surface antigen) Patricia Stanford Other [facility] [employer] Other 05-12-2019 influenza virus vaccine, unspecified formulation MD Patricia Stanford Work Phone: [facility] 04-18-2018 influenza virus vaccine, split virus (incl. purified surface antigen) Patricia Stanford Other [employer] Other 04-18-2018 influenza virus vaccine, unspecified formulation MD Patricia Stanford Work Phone: [facility] 07-10-2017 pneumococcal conjuga te vaccine, 13 valent Patricia Stanford Other [facility] 04-18-2017 influenza virus vaccine, split virus (incl. purified surface antigen) Patricia Stanford Other [facility] [employer] Other 04-18-2017 influenza virus vaccine, unspecified formulation MD Patricia Stanford Work Phone: [facility] 05-09-2016 influenza virus vaccine, split virus (incl. purified surface antigen) Patricia Stanford Other [facility] [employer] Other 05-09-2016 influenza virus vaccine, unspecified formulation MD Patricia Stanford Work Phone: [facility] 05-27-2013 tetanus and diphther ia toxoids, adsorbed, preservative free, for adult use (5 Lf of tetanus toxoid and 2 Lf of diphtheria toxoid) Patricia Stanford Other [facility] 12-24-2011 pneumococcal polysaccharide vaccine, 23 valent Patricia Stanford Other [facility] Payers Date Payer Category Payer Medicare [id number] 1958 Unknown [id number] 1945 Unknown [id number] 2.16.8 [id number] 1945 Unknown [id number] 2.16.8 40.1.439077.3.579.2.647 1945 Unknown [id number] 2.16.84 0.1.515542.3.579.2.593 1945 Unknown [id number] 2.16.84 0.1.732207.3.579.2.593 1945 Unknown [id number] 2.16.84 0.1.323661.3.579.2.593 1945 Unknown [id number] 2.16.84 0.1.846975.3.579.2.593 1945 Unknown [id number] 2.16.84 0.1.666578.3.579.2.593 1945 Unknown [id number] 2.16.84 0.1.442670.3.579.2.593 1945 Unknown [id number] 2.16.84 0.1.255031.3.579.2.593 1945 Unknown [id number] 2.16.84 0.1.882536.3.579.2.593 1945 Unknown [id number] 2.16.84 0.1.094483.3.579.2.593 1945 Unknown [id number] 2.16.84 0.1.971282.3.579.2.593 1945 Unknown [id number] 2.16.84 0.1.174864.3.579.2.593 1945 Unknown [id number] 2.16.84 0.1.442946.3.579.2.593 1945 Unknown [id number] 2.16.84 0.1.665033.3.579.2.593 1945 Unknown [id number] 2.16.84 0.1.415987.3.579.2.593 1945 Unknown [id number] 2.16.84 0.1.876979.3.579.2.1259 1945 Unknown [id number] 2.16.84 0.1.815283.3.579.2.1259 Medicare Medicare Outpatient [id number] Unknown Social History Date Type Detail Facility Unknown if ever smoked [employer] Other Sex Assigned At Sex Assigned At Bir th [employer] Other Start: 10-02-2023 Tobacco smoking status NHIS Never smoked tobacco (finding) [facility] Start: 1945 Sex Assigned At Female F [facility] Goals Date Patient Goal Desired Activity /State Clinical Notes 11-30-2021 to 10-02-2023 Note Date & Type Note Facility 10-02-2023 Procedure note [facility] 08-30-2023 Evaluation note Encounter Date Diagnosis Assessment [...] try OTC ones in meantime. Referral placed. [facility] [employer] Other 01-10-2024 Evaluation note* Encounter Date Diagnosis Assessment Notes Treatment Notes Treatment Clinical Notes Aug, GERD (gastroesophageal reflux disease) (ICD-10 - K21.9) Aug, Chronic diarrhea (ICD-10 - K52.9) Patient reports that her last colonoscopy was at the [facility] about 11 years ago and that she can not remember who preformed the procedure Aug, Abdominal pain (ICD-10 - R10.9) Aug, Weight loss, unintentional (ICD-10 - R63.4) Aug, Change in bowel habits (ICD-10 - R19.4) Lizbeth is advised to have a colonoscopy ordered, scheduled and prep instructions given today Risks and benefits of procedure explained to patient; patient verbalizes understanding. [employer] Other 12-04-2023 Evaluation note* Encounter Date Diagnosis [...] (ICD-10 - M81.0) Due for Dexa 08/2023 [employer] Other 02-16-2023 NoteCONSULTATION CONSULTATION DATE: 09/27/2022 HISTORY OF PRESENT ILLNESS: This is a 76-year-old female who returns to the clinic status post LES on 09/11/2022. The patient states she was afforded between 50-60% relief. Depending on her physical activity, determines her level of comfort. 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, housework and lifting greatly aggravate [...] Patient is in agreement with this plan.[id number] NoteCONSULTATION CONSULTATION DATE: 09/04/2022 HISTORY OF PRESENT [...] patient understands and would like to proceed.[facility] [id number] NoteCONSULTATION CONSULTATION DATE: 07/11/2022 HISTORY OF PRESENT [...] followed up in the clinic post procedure.[facility] [id number] NoteCONSULTATION PROCEDURE DATE: 07/11/2022 PREOPERATIVE DIAGNOSIS: Bilateral [...] will be followed up in the clinic.[facility] 06-06-2022 NoteCONSULTATION CONSULTATION DATE: 06/06/2022 HISTORY OF [...] pain returning. 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 The patient has not seen a fundraising sale representative in the past. REVIEW OF SYSTEMS, PAST [...] mg q.h.s. A referral to rheumatology near [place] will be sent on her behalf and I highly encouraged her to seek consultation, particularly since she has a familial history of autoimmune diseases. The patient agrees with the plan of care and will be followed up in the office in three months' time. [facility] Signed and Approved by: MICHELE SALDAÑA . 03/02/2022 14:16:00[facility]04-21-2022 NoteCONSULTATION Consultation Date:11/30/2021 PREOPERATIVE DIAGNOSIS: Right gluteal [...] will be followed up in the office. [facility] Signed and Approved by: MICHELE SALDAÑA . 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 Lying down and using heat decrease her pain. Prior to the procedure, she was in a state of acute pain and was placed on a short term course of Frost 5/325 b.i.d. p.r.n. Patient states she only [...] of care and would like to proceed. [facility] Signed and Approved by: MICHELE SALDAÑA . 12/06/2021 16:15:00[facility] noteNo InformationN[employer] Other Evaluation noteNo assessment information available [facility] Work Phone: History and physical note Author Sunny Torres [facility] October 02, 2023 8:54am Note Date/Time October 02, 2023 8:54am [facility] [address] [place] [address] Gastroenterology H&P Signed Patient: Lobo Murdock MR#: [id number] : 1945 Acct:[id number] Age/Sex: 78 / F Adm Date: 4 Loc: Room: Type: [facility] Attending Dr: Sunny Torres MD Copies to: MD Patricia Morel MD~ Date of Service: 10/02/2023 HISTORY & PHYSICAL: Patient's history with special attention to the cardiovascular, pulmonary systems and the current problem was reviewed with the patient immediately prior to the procedure. Present medications and doses reviewed in the EMR. Allergies and pertinent laboratory tests were also reviewedat this time in the EMR. The physical examination, as below, was then performed. Indication, assessment and HPI: 78-year-old female with family history of colon cancer (brother) and chronic heartburn here for EGD to assess for Suárez's and colonoscopy to evaluate change in bowel habits Family history of GI malignancy? Yes PHYSICAL EXAMINATION Mouth and Pharynx : Moist mucus membranes, normal dentition Cardiac: Regular rate, regular rhythm Pulmonary: Clear to auscultation bilaterally, no wheezing Neurological: Alert and oriented x3, no focal deficits noted Abdomen: Abdomen soft, non-tender REVIEW OF SYSTEMS Constitutional: Denies malaise, fevers Cardiovascular: Denies chest pain, palpitations Respiratory: Denies shortness of breath, wheezing Gastrointestinal: Per HPI Genitourinary: Denies dysuria, polyuria Musculoskeletal: Denies joint swelling, joint stiffness Neurological: Denies numbness, tingling Integumentary: Denies rashes, skin lesions Endocrine: Denies fatigue, weight loss Written informed consent obtained from the patient. Risks (including but not limited to perforation, infection, bloating, bleeding, need for emergent surgeryand loss of life), benefits and alternatives explained and questions answered. The patient verbalized understanding. Based on history patient is an appropriate candidate for the procedure. Sunny Torres M.D. Documented By: Sunny Torres MD 10/02/23 0852 Signed By: <Electronically signed by Sunny Torres MD> 10/02/23 0854 [facility] Work Phone: History general Narrative - Reported* Type Description [...] shoulder pain 1982 Hospitalization History migraines 1992 [employer] Other Hospital Discharge instructions Additional Instructions DISCHARGE INSTRUCTIONS FOR UPPER ENDOSCOPY WHAT TO EXPECT: - You may feel full, gassy or cramping after your procedure. In some cases, this may be from a few hours to a day. Walking may help relieve the discomfort. - Your throat may feel sore today from the scope that the doctor passed through your throat to visualize your stomach. Take a throat lozenge or suck on ice to ease the discomfort. - You may notice some streaks of blood in your sputum if the doctor has taken a biopsy. - You should begin to recover from anesthesia within 1 hour of the procedure, however may feel groggy for the next 24 hours. DO's AND DON'Ts: - Call your doctor right away if you have a hard abdomen, severe pain, vomiting or if you cough up large amounts of blood. - Call your doctor if you develop any rashes, hives or difficulty breathing. - If you take 81 mg aspirin for your heart it is safe to resume this medication. - If you take other blood thinner medications your doctor will instruct you when these can safely be resumed. - Do NOT drive for 24 hours. - Do NOT operate machinery such as power tools, [employer] mowers, snow blowers, sewing machines, etc. for 24 hours. - Avoid alcoholic beverages and drugs for allergies, nerves, or sleep. - Do NOT stay alone. Do NOT leave your child unattended. - Do NOT make important personal or business decisions or sign any legal documents. - Eat solid foods and drink liquids in smaller amounts than usual until normal appetite returns. If you should experience an upset stomach, liquids high in sugar content (soda, Igor-Aid, non-acid juices) are recommended. - Do NOT smoke. - Do take it easy today. You need not stay in bed, but avoid strenuous activities such as jogging or working out. DISCHARGE INSTRUCTIONS FOR COLONOSCOPY WHAT TO EXPECT: - You may feel full, gassy or cramping after your procedure. In some cases, this may be from a few hours to a day. Walking may help relieve the discomfort. - If you have polyp(s) removed you may note some minor bloody discharge after your first bowel movements. - You should begin to recover from anesthesia within 1 hour of the procedure, however may feel groggy for the next 24 hours. DO's AND DON'Ts: - Call your doctor right away if you have a hard abdomen, sever pain, are passing lots of bright red blood or clots. - Call your doctor if you develop any rashes, hives or difficulty breathing. - Let your doctor know if you have not had a bowel movement by 3 days after your procedure. - If you take 81 mg aspirin for your heart it is safe to resume this medication. - If you take other blood thinner medications your doctor will instruct you when these can safely be resumed. - Do NOT drive for 24 hours. - Do NOT operate machinery such as power tools, lawn mowers, snow blowers, sewing machines, etc. for 24 hours. - Avoid alcoholic beverages and drugs for allergies, nerves, or sleep. - Do NOT stay alone. Do NOT leave your child unattended. - Do NOT make important personal or business decisions or sign any legal documents. - Eat solid foods and drink liquids in smaller amounts than usual until normal appetite returns. If you should experience an upset stomach, liquids high in sugar content (soda, Igor-Aid, non-acid juices) are recommended. - You can resume normal activities tomorrow. FOLLOW UP & RECOMMENDATIONS: -Notify the doctor if you have any problems. -Repeat colonoscopy due to inadequate prep -Follow up pathology -Pantoprazole 40 mg daily -Follow up in the office - Office number [phone]. [facility] Work Phone: Summary Purpose Family History No Family History Records Found Relationship Condition Age at Onset Recorded Date/T sania father Unknown Malignant neoplasm of prostate Unknown grandparent Unknown grandparent Diabetes mellitus Unknown Unknown Not Specified Malignant neoplasm of ovary Unknown Malignant neoplasm of uterus Unknown brother Malignant neoplasm of colon Unknown brother Malignant neoplasm of throat Unknown Advance Directives No Advanced Directives Records Found Advance Directive Response Recorded Date/ Time Advance Directives No September 1:12pm Reason for Referral Reason diarrhea x 6 weeks a nd increased heartburn. Diagnosis 1 Chronic diarrhea (K5 2.9) Referral Organization [facility] [place] Referring Provider First Name Patricia Referring Provider Last Name Abdoulaye Referring Provider Specialty [facility] [employer] Referred Organization [facility] Referred Address [address],[address] Referred Provider Specialty Gastroentero logy Referral Priority Routine Reason *FU 09/06 R foot p ain Diagnosis 1 Pain of left great t oe (M79.305) Referral Organization [facility] [place] Referring Provider First Name Patricia Referring Provider Last Name Abdoulaye Referring Provider Specialty Family Medi cine Referred Organization [facility] Referred Provider Odin Chong Referred Address [address],[place], [place],[address] Referred Provider Specialty Podiatry - S urgical Chiropody Referral Priority Routine General Notes Shefali Carroll 12:44:49 PM >received today, notes locked, ins attached, referral faxed Chief Complaint and Reason for Visit Chief Complaint Right Eye, Itchy, In fected? Stomach/Bowel Issues Ref By Dr. Stanford For Chronic Diarrhea & Left Foot gerd, change in bowel habits gerd, change in bowel habits Additional Source Comments INFORMATION SOURCE (unrecogn ized section and content) DATE CREATED AUTHOR 05/09/2022 [facility] DATE CREATED AUTHOR AUTHOR'S ORGANIZ ATION 11/17/2022 [facility]ital DATE CREATED AUTHOR AUTHOR'S ORGANIZ ATION 09/09/2023 [facility] dical Specialists EPIC DATE CREATED AUTHOR AUTHOR'S ORGANIZ ATION 10/09/2023 [facility] REASON FOR VISIT (unrecogniz ed section and content) Stomach/Bowel IssueslabsPATI ENT IS HERE AT THE REQUEST OF DR. STANFORD FOR CHRONIC DIARRHEA, ABD PAIN, WEIGHT LOSS & HEARTBURNdexaLeft FootGI CONSULTmessage Care Teams (unrecognized sec tion and content) Team Status: Active Member Role Status Dates Patricia Stanford MD Primary Care Provider Active Team Status: Inactive Member Role Status Dates MARY Crooks Attending Provider Active S tart: July 06, 2023 End: July 06, 2023 Team Status: Inactive Member Role Status Dates Patricia Stanford MD Attending Provider Active St art: July 15, 2023 End: July 15, 2023 Team Status: Inactive Member Role Status Dates Sunny Torres MD Attending Provider Active Start: August 21, 2023 End: August 21, 2023 Team Status: Inactive Member Role Status Dates Patricia Stanford MD Attending Provider Active St art: August 30, 2023 End: August 30, 2023 Team Status: Inactive Member Role Status Dates Patricia Stanford MD Primary Care Provider Active Start: October 02, 2023 End: October 02, 2023 Sunny Torres MD Attending Provider Active Start: October 02, 2023 End: October 02, 2023 Team Status: Active Member Role Status Dates Patricia Stanford MD Primary Care Provider Active Start: October 02, 2023 Sunny Torres MD Attending Provider, Other Provider Active Start: October 02, 2023 FOR RECORDS PERTAINING TO PATIENTS WHO ARE [...] BE BASED ON THE PRIMARY CLINICAL RECORDS. [facility] [employer] [facility]. provides no warranty or guarantee of the accuracy or completeness of information in this document.
[2023-10-14 07:55] VITALS: BP 128/79; PULSE 94; RESP 16; TEMP 36.1; O2SAT 94
[2023-10-14 08:38] VITALS: RESP 20
[2023-10-14] MEDS: BUPIVACAINE HCL 0.25% PF 25 MG/10 ML VIAL 4 ML INJ (08:49)
[2023-10-14] MEDS: TRIAMCINOLONE ACETONIDE 40 MG/ML VIAL 80 MG INJ (08:49)
[2023-10-14] MEDS: LIDOCAINE HCL 2% 400 MG/20 ML MDV 12 ML INJ (08:49)
[2023-10-14 08:57] VITALS: BP 116/68; BP 125/61; PULSE 83; PULSE 84; O2SAT 96
--- NOTE | 2023-10-14 09:00 | P.ON_ITS ---
Date of procedure: 10/14/23 Pre-op diagnosis: Lumbar spondylosis Post-op diagnosis: same as pre-op Procedure: Procedure: Bilateral L4-5, L5-S1 radiofrequency ablation Medications: Bupivacaine 0.25% 6cc, lidocaine 2% 5cc, kenalog 80mg The patient was seen and examined in the preoperative holding area.? The site was marked.? Written informed consent was obtained and placed on the chart.? The patient was brought to the medical procedure unit and placed in the prone position.? A timeout was completed verifying correct patient, procedure, positioning, and special requirements.? The skin overlying the target points, the designated medial branch, were prepped and draped in the usual sterile fashion.? The target point was achieved with a 20-gauge 15 cm with a 10 mm curved active tip radiofrequency cannula under direct fluoroscopic visualization.? The needle was inserted at level L4 on the right side. Needle tip position was confirmed with lateral fluoroscopic position.? Motor stimulation was carried out at 2 Hz up to 5 volts with the absence of extremity activity.? This was repeated at level L5, S1 on right side.?? Sensory stimulation was carried out.? Concordant pain was realized at the above- mentioned sites.? Then radiofrequency lesioning was carried out times 90 seconds at 80 degrees times 2 lesions at each level.? The radiofrequency probe was removed prior to cannula removal.? The above-mentioned injectate was placed in 1 mL increments.? The needle was removed. The same procedure, with the same steps, was then completed on the left side at the same levels. Insertion sites were covered.? The patient was taken to the postoperative recovery area and monitored for an appropriate length of time before being found suitable for discharge in the company of a responsible adult. Anesthesia: Local Surgeon: Ara Maier Pathology: none sent Condition: stable Disposition: no change
== END 2023-10-14 09:10 | disposition home or self-care (01) ==
LOC: SURGOUT 07:48
PROVIDERS: PCP Family Medicine; Visit Provider Anesthesiology
DX: M47.816 Spondylosis without myelopathy or radiculopathy, lumbar region (principal)
CPT/HCPCS: 64635; 64636

== ENCOUNTER 2023-11-05 10:01 | Outpatient (RCR) | payer MEDICARE, SELFPAY | END 2023-11-06 13:34 | disposition home or self-care (01) | LOC: PT 10:01 | PROVIDERS: PCP Family Medicine; Visit Provider Podiatrist Foot & Ankle Surgery | DX: M21.622 Bunionette of left foot (principal); Z98.890 Other specified postprocedural states | CPT/HCPCS: 97161 ==

== ENCOUNTER 2023-11-11 08:56 | Outpatient (OUT) | payer MEDICARE, SELFPAY ==
--- NOTE | 2023-11-11 09:01 | ECG_ITS ---
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
--- OUTSIDE RECORDS SUMMARY | 2023-11-11 09:04 | XMS_ITS | CCD ---
Author Organization [facility] Care Team Providers Care Equal Opportunity Counselor Name Role Phone PHYSICIAN, DEFAULT Admitting Unavailable PHYSICIAN, DEFAULT Attending Unavailable ALT-DANIEL, BRINDA Primary Care Unavailable OVIDIO, ARIADNA S Admitting Unavailable OVIDIO, ARIADNA S Attending Unavailable [...] STANFORD, DR PATRICIA Crain Primary Care Unavailable SALDAÑA ., MICHELE Attending Unavailable STANFORD, DR PATRICIA Crain Primary Care Unavailable SALDAÑA ., MICHELE Admitting Unavailable MATTHEWS ., DR MASSIMO Cook Admitting Unavailable STANFORD, DR PATRICIA Crain Primary Care Unavailable MATTHEWS ., DR MASSIMO Cook Attending Unavailable MATTHEWS ., DR MASSIMO Cook Admitting Unavailable MATTHEWS ., DR MASSIMO Cook Consulting Unavailable STANFORD, DR PATRICIA Crain Primary Care Unavailable BYRON ., DR MASSIMO Cook Attending Unavailable ABDOULAYE, DR PATRICIA Crain Consulting Unavailable STANFORD, DR PATRICIA Crain Attending Unavailable ABDOULAYE, DR PATRICIA Crain Admitting Unavailable ABDOULAYE, DR PATRICIA Crain Primary Care Unavailable STANFORD, DR PATRICIA Crain Primary Care Unavailable STANFORD, DR PATRICIA Crain Consulting Unavailable ABDOULAYE, DR PATRICIA Crain Attending Unavailable STANFORD, DR PATRICIA Crain Admitting Unavailable MATTHEWS ., DR MASSIMO Cook Attending Unavailable MATTHEWS ., DR MASSIMO Cook Admitting Unavailable MICHELE ROCK Consulting Unavailable ROBBIE, DR FLANAGAN Primary Care Unavailable MATTHEWS ., DR MASSIMO Cook Admitting Unavailable MATTHEWS ., DR MASSIMO Cook Attending Unavailable ABDOULAYE, DR PATRICIA Crain Primary Care Unavailable MATTHEWS ., DR MASSIMO Cook Consulting Unavailable Patricia Stanford Unavailable Asaad, Imad Unavailable CARI NAVA Attending Unavailable CARI NAVA Attending Unavailable MD Patricia Stanford Primary Care Provider MD Melissa Imravindra Attending Provider [phone] Patricia Stanford Primary Care Unavailable Asaad, Imad Attending Unavailable Asaad, Imad Admitting Unavailable Gitorinitis , Ara Loomis Attending Unavailable Giedraitis , Ara Loomis Attending Unavailable Gieditis , Ara Loomis Attending Unavailable Allergies Allergy Classification Reported Allergen(s) Allergy Type Date of Onset Reaction(s) Facility (8 sources) Calcitonin ([place]) *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 Propensity to adverse reactions Comment:severe weakness [facility] Other Medications Current Medications Medication Drug Class(es) Dates Sig (Normalized) Sig (Original) baclofen 10 mg oral tablet (9 sources) gamma-Aminobutyric Acid-ergic Agonist Start: 10-25-2020 take 10 mg by mouth once daily Baclofen Active 10 MG PO Daily October 02, 2023 12:00am budesonide 3 mg delayed release oral capsule (1 source) Corticosteroid Start: 10-04-2023 Budesonide 3 MG 3 tabs daily for 60 days, 2 tabs daily for 14 days, 1 tab daily for 14 days Orally Once a day for 88 Sep, Active Citracal Plus - (8 sources) Start: 10-25-2020 Citracal Plus - as directed Orally once a day for 0 days Oct, Active denosumab (8 sources) RANK Ligand Inhibitor Start: 08-13-2019 Prolia 60MG/ML Prolia 60MG/ML, # 0, 08/13/2019, No Refill. Active Subcutaneous for 0 *Pick strength-form from [employer] for eRX* Aug, Active diclofenac sodium 50 mg delayed release oral tablet (9 sources) Nonsteroidal Anti-inflammatory Drug Start: 10-02-2023 take [...] Active hyoscyamine sulfate 0.125 mg oral tablet (8 sources) take 1 tablet by mouth four times daily as needed Levsin 0.125 MG 1 tablet as needed Orally qid prn for 10 days Active Magnesium (8 sources) Start: 10-25-2020 take 1 tablet by mouth once daily Magnesium 400 MG 1 tablet with a meal Orally Once a day for 0 days *Pick strength-form from [employer] for eRX* Oct, Active Multiple Vitamin (8 sources) take 1 tablet by mouth once daily Multiple Vitamin 1 tablet Orally Once a day Active pantoprazole 40 mg delayed release oral tablet (10 sources) Proton Pump Inhibitor Start: 07-15-2023 End: 10-02-2023 take 40 mg by mouth once daily Pantoprazole Active 40 MG PO Daily 90 October 02, 2023 10:00am traMADol hydrochloride 50 mg oral tablet (8 sources) Opioid Agonist Start: 10-25-2020 take 1 tablet by mouth every twenty-four hours traMADol HCl 50 MG 1 tablet as needed Orally Once a day for 0 days PRN Oct, Active Vitamin D3 1000 UNIT (8 sources) take 1 tablet by mouth once daily Vitamin D3 1000 UNIT 1 tablet Orally Once a day Active Problems Active Problems Problem Classification Problem Date Documented Da te Episodic/Chronic Abdominal pain (7 sources) Abdominal pain; Translations: [Unspecified abdominal pain] Episodic Esophageal disorders (16 sources) Gastro-esophageal reflux disease with esophagitis; Translations: [Gastro-esophageal reflux disease with esophagitis, without bleeding] Onset: 09-05-2018 Chronic Noninfectious gastroenteritis (9 sources) Noninfective gastroenteritis and colitis, unspecified; Translations: [Chronic diarrhea] Episodic Nutritional deficiencies (10 sources) Vitamin D deficiency; Translations: [Vitamin D deficiency, unspecified] Onset: 01-19-2015 Chronic Osteoarthritis (8 sources) Osteoarthritis; Translations: [Unspecified osteoarthritis, unspecified site] Onset: 10-28-2013 Chronic Osteoporosis (20 sources) Age-related osteoporosis without current pathological fracture; Translations: [Primary osteoporosis] Onset: 10-28-2013 Chronic Other aftercare (8 sources) 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; Translations: [MCC (current) use of bisphosphonates] Episodic Other connective [...] Episodic Other nutritional; endocrine; and metabolic disorders (6 sources) Weight decreased; Translations: [Abnormal weight loss] Episodic Other skin disorders (8 sources) Alopecia; Translations: [Nonscarring hair loss, unspecified] Episodic Residual codes; unclassified (2 sources) Requires influenza virus vaccination; Translations: [Need for prophylactic vaccination and inoculation, Influenza] Episodic Spondylosis; intervertebral disc disorders; other back problems (16 sources) Other spondylosis with radiculopathy, lumbar region; Translations: [Sacroiliitis, not elsewhere classified] Onset: 02-22-2022 Chronic Syncope (8 sources) Syncope and collapse; Translations: [Syncope and [...] Episodic/Chronic Immunizations and screening for infectious disease (8 sources) Vaccination given; Translations: [Encounter for immunization] [...] Onset: 06-13-2022 Episodic Other lower respiratory disease (8 sources) Dyspnea; Translations: [Other forms of dyspnea] Onset: 07-19-2016 Episodic Spondylosis; intervertebral disc disorders; other back problems (13 sources) Intervertebral disc disorders with radiculopathy, lumbar region; Translations: [Radiculopathy, lumbar region] Onset: 10-28-2013 Episodic Unclassified (1 source) LOW BACK PAIN, UNSPECIFIED; Translations: [LOW BACK PAIN, UNSPECIFIED] Onset: 06-19-2022 Results Test Name Value Interpretation Reference Range Facility [facility] 10-02-2023 L Specimen: [id number] Received: 10/02/23 Status: OJ Brice Num: [id number] Spec Type: Surgical Subm Dr: Sunny Torres MD Tissues: A GASTRIC FOR HP (GASTRIC BX R/O H.PYLORI) B Colon Biopsy (RANDOM COLON BX R/O MICROSCO) Procedures: HE/4, Gross/Micro L4/2, H PYLORI Age/ Patient Sex Location Account Attending Physician MaikelLobo 78/F [id number] Sunny Torres MD SPEC NUM: [id number] RECD: 10/02/23 STATUS: OJ BRICE NUM: [id number] TEO: 10/02/[address]: Sunny Torres MD ENTERED: 10/02/23 [facility] DR: SPEC TYPE: Surgical DEPT: S ORDERED: [...] name, date of and random colon Specimen: [id number] Received: 10/02/23 Status: OJ Brice Num: [id number] Spec Type: Surgical Subm Dr: Sunny Torres MD Tissues: A GASTRIC FOR HP (GASTRIC BX R/O H.PYLORI) B Colon Biopsy (RANDOM COLON BX R/O MICROSCO) Procedures: HE/4, Gross/Micro L4/2, H PYLORI Patient: MaikelLobo [id number] (Continued) Specimen: [id number] Received: 10/02/23 (Continued) Gross Description (Continued) Signed (signature on file) Patito Grimm MD 10/03/23 1430 Specimen: [id number] Received: 10/02/23 Status: OJ Brice Num: [id number] Spec Type: Surgical Subm Dr: Sunny Torres MD Tissues: A GASTRIC FOR HP (GASTRIC BX R/O H.PYLORI) B Colon Biopsy (RANDOM COLON BX R/O MICROSCO) Procedures: HE/4, Gross/Micro L4/2, H PYLORI Patient: Lobo Murdock [id number] (Continued) Specimen: [id number] Received: 10/02/23 (Continued) Gross Description (Continued) biopsy are 2 galvan translucent soft tissue fragments, 0.3 and 0.6 cm in greatest dimensions. Entirely submitted in one cassette labeled B1. CPT Codes [id number] Specimen: [id number] Received: 10/02/23 Status: OJ Brice Num: [id number] Spec Type: Surgical Subm Dr: Sunny Torres MD Tissues: A GASTRIC FOR HP (GASTRIC BX R/O H.PYLORI) B Colon Biopsy (RANDOM COLON BX R/O MICROSCO) Procedures: HE/4, Gross/Micro L4/2, H PYLORI Patient: Lobo Murdock [id number] (Continued) Signed (signature on file) Patito Grimm MD 10/03/23 1430 [facility] CALCIUMon 10-03-2022 Calcium [Mass/Vol] 8.9 mg/dL Normal 8.5-10.1 [facility] Comment on above: Performed By: #### VALERIO MADRIGAL #### [facility] [address] [place] [address] Dr. Dang Grimm CREATININEon 10-03-2022 Creatinine [Mass/Vol] 1.03 mg/dL Critically high 0.55-1.02 [facility] Comment on above: Performed By: #### VALERIO MADRIGAL #### [facility] [address], [place] [address] Dr. Dang Grimm EGFR-AF TAIWANESE >60 Normal >=60 [facility] Comment on above: Performed By: #### C ANGIE, [place] #### [facility] [address] [place], [place] [address] Dr. Dang Grimm EGFR-NON AF TAIWANESE 52 mL/min/1.73m2 Critically low >=60 [facility] Comment on above: Performed By: #### C ANGIE, [place] #### [facility] [address] [place], [place] [address] Dr. Dang Grimm Covid-19 PCR (CVDTB)on SARS-CoV-2 (COVID-19) RNA GENARO+probe Ql (Unsp spec) Not detected Normal NOT DETECTED [facility] Comment on above: Result Comment: This test is not yet approved or cleared by the [place] FDA. When there are no FDA-approved or cleared tests available, and other criteria are met, FDA can make tests available under an emergency access mechanism called an Emergency Use Authorization (EUA). The EUA for this test is supported by the Coordinate Measuring Machine Technician of Health and Human Service's (HHS's) [...] SARS-CoV-2. Performed By: #### C VDTBH #### [facility] [address], [place] [address] Dr. Dang DUDLEYon 04-20-2022 OCTAVIA PATTERN SPECKLED Normal [facility] Comment on above: Result Comment: The [...] authority. Performed By: #### 1 0196 #### [facility] [address] OCTAVIA SCREEN 1:40 Normal <1:40,1:40 [facility] Comment on above: Result Comment: Test performed using MELCHOR IFA OCTAVIA Hep-2 Test, a pre-standardized assay designed for the qualitative and semi-quantitative detection of antinuclear antibodies. Performed By: #### 1 0196 #### [facility] [address] C REACTIVE PROTEINon 022 CRP [Mass/Vol] 2.5 mg/L Normal 0.0-7.0 [facility] Comment on above: Performed By: #### 6 1405, 84444 #### [facility] [address] CBC COMPLETE BLOOD COUNTon 0 04-20-2022 Erythrocyte distribution width (RBC) [Ratio] 12.4 % Normal 11.5-15.0 [facility] Comment on above: Performed By: #### 5 2546, 61144 #### [facility] [address] Hematocrit (Bld) [Volume fraction] 41.6 % Normal 36.0-45.0 [facility] Comment on above: Performed By: #### 5 6506, 16834 #### [facility] [address] Hemoglobin (Bld) [Mass/Vol] 13.7 g/dL Normal 12.0-15.0 [facility] Comment on above: Performed By: #### 5 6506, 34236 #### [facility] [address] [facility] [place] [address], [facility] MCH (RBC) [Entitic mass] 31.4 pg Normal 27.0-33.0 [facility] Comment on above: Performed By: #### 5 650, 04700 #### [facility] [address] [place] [id number], [facility] MCHC (RBC) [Mass/Vol] 32.9 g/dL Normal 32.0-35.0 [facility] Comment on above: Performed By: #### 5 6505, 39196 #### [facility] [address] [facility] [place] [address], [facility] MCV (RBC) [Entitic vol] 95.2 fL Normal 82.0-98.0 [facility] Comment on above: Performed By: #### 5 6505, 84994 #### [facility] [address] [facility]. [address] Nucleated RBC/100 WBC (Bld) [Ratio] 0 % Normal 0-0 [facility] Comment on above: Performed By: #### 5 650, 31463 #### [facility] [address] [facility] [place] [address], [facility] PLAT CNT 248 10*3/uL Normal 150-400 [facility] Comment on above: Performed By: #### 5 650, 07819 #### [facility] [address] [facility] [place] [address], [facility] RBC (Bld) [#/Vol] 4.37 10*6/uL Normal 3.80-5.00 [facility] Comment on above: Performed By: #### 5 650, 03216 #### [facility] [address] [place] [address], [facility] WBC (Bld) [#/Vol] 5.54 10*3/uL Normal 4.00-10.60 [facility] Comment on above: Performed By: #### 5 6506, 80029 #### [address] CERVICAL SPINE 4 OR 5 VIEWSo n 04-20-2022 CERVICAL SPINE 4 OR 5 VIEWS [facility] Department of Radiology [address] [place] [id number] ===== Patient Name: LOBO MURDOCK : 1945 Sex: F Age: Race: White Pt. Location: [facility] Patient Status: O Ordered Date: 04/20/2022 10:50:00 AM Completed Date: 04/20/2022 11:42 AM Requesting Provider: MICHAEL HAHN Attending Provider: ARIADNA NOLAN Report Copy To: Signs & Symptoms: M54.2 Cervicalgia I10 History: [place] Comments: Views (X-RAY, CERVICAL SPINE): AP, Lateral, [...] C3 Electronically signed: Christian Upton. Transcribed by: [email or web address], User Resident: Electronically Signed by: CHRISTIAN UPTON @ 04/20/2022 02:33 PM Normal [facility] Comment on above: Order Comment: Views (X-RAY, CERVICAL SPINE): AP, Lateral, Odontoid, Flexion, Extension COMP METABOLIC PANELon 04-20 Albumin [Mass/Vol] 4.1 g/dL Normal 3.5-5.7 [facility] Comment on above: Performed By: #### 3 5515, 59512, 08237 #### [facility] [address] [place] [address], [facility] ALKALINE PHOSPH 63 IU/L Normal 34-104 [facility] Comment on above: Performed By: #### 3 5515, 95315, 13496 #### [facility] [address] [place] [address], [facility] ALT [Catalytic activity/Vol] 15 U/L Normal 7-52 [facility] Comment on above: Performed By: #### 3 5515, 30538, 52251 #### [facility] [address] [place] [address], [facility] AST [Catalytic activity/Vol] 22 U/L Normal 13-39 [facility] Comment on above: Performed By: #### 3 5515, 99908, 19480 #### [facility] [address] [place] [address], [facility] Bilirubin [Mass/Vol] 0.5 mg/dL Normal 0.3-1.0 [facility] Comment on above: Performed By: #### 3 5515, 88331, 34206 #### [facility] [address] [place] [address], [facility] Calcium [Mass/Vol] 10.2 mg/dL Normal 8.6-10.3 [facility] Comment on above: Performed By: #### 3 5515, 12985, 91861 #### [facility] [address] [place] [address], [place] Chloride [Moles/Vol] 105 mmol/L Normal 98-107 [facility] Comment on above: Performed By: #### 3 5515, 94526, 84418 #### [facility] [address] [place] [address], [place] CO2 [Moles/Vol] 25 mmol/L Normal 21-31 [facility] Comment on above: Performed By: #### 3 5515, 68841, 53970 #### [facility] [address] [place] [address], [facility] Creatinine [Mass/Vol] 0.95 mg/dL Normal 0.60-1.20 [facility] Comment on above: Performed By: #### 3 5515, 32687, 23466 #### [facility] [address] [place] [id number], [facility] GFR/1.73 sq M.predicted among non-blacks MDRD (S/P/Bld) [Vol rate/Area] mL/min/{1.73_m2} Normal >60 [facility] Comment on above: Result Comment: [facility]'s estimated glomerular filtration rate (eGFR) will [...] of individuals. Performed By: #### 3 5515, 41283, 62397 #### [facility] [address] [place] [address], [place] Glucose [Mass/Vol] 88 mg/dL Normal 70-100 [facility] Comment on above: Performed By: #### 3 5515, 24911, 59630 #### [facility] [address] [place] [address], [place] Potassium [Moles/Vol] 4.5 mmol/L Normal 3.5-5.1 [facility] Comment on above: Performed By: #### 3 5515, 31339, 53828 #### [facility] [address] [place] [address], [place] Protein [Mass/Vol] 6.8 g/dL Normal 6.0-8.3 [facility] Comment on above: Performed By: #### 3 5515, 81074, 85882 #### [facility] [address] [place] [address], [place] Sodium [Moles/Vol] 138 mmol/L Normal 136-145 [facility] Comment on above: Performed By: #### 3 5515, 07073, 88416 #### [facility] [address] [place] [address], [place] Urea nitrogen [Mass/Vol] 29 mg/dL High 7-25 [facility] Comment on above: Performed By: #### 3 5515, 40454, 97737 #### [facility] [address] [place] [address], [place] CYCLIC CITRULLINATED PEPTIDE AB [id number] 04-20-2022 CYCLIC CIT PEP 2 Units Normal 0-19 [facility] Comment on above: Result Comment: INTE [...] be monitored and testing repeated. Performed By: [facility] [address] [place] [address] Relocation Counselor: Brett Tamez MD, PhD FERRITINon 04-20-2022 Ferritin [Mass/Vol] 43 ng/mL Normal 11-307 [facility] Comment on above: Performed By: #### 3 5515, 63936, 78393 #### [address] HAND LEFT 3 VWSon 04-20-2022 HAND LEFT 3 VWS [facility] Department of Radiology [address] [place] [id number] ===== Patient Name: LOBO MURDOCK : 1945 Sex: F Age: Race: White Pt. Location: [facility] Patient Status: O Ordered Date: 04/20/2022 10:50:00 AM Completed Date: 04/20/2022 11:42 AM Requesting Provider: MICHAEL HAHN Attending Provider: ARIADNA NOLAN Report Copy To: Signs & Symptoms: M79.641 Pain in right hand I10 History: [place] Comments: Evaluate Exam: HAND LEFT 3 VWS ===== HAND LEFT 3 [facility] 04/20/2022 11:42 AM CLINICAL INDICATIONS: M79.641 Pain [...] report. Electronically signed: Chelita Lazcano. Transcribed by: [email or web address], User Resident: NIRMALA MONGE Electronically Signed by: CHELITA LAZCANO @ 04/20/2022 01:29 PM I personally read this/these film(s) with this resident Normal [facility] Comment on above: Order Comment: Evalu ate HAND RIGHT 3 [facility] 2 HAND RIGHT 3 [facility] Department of Radiology [address] [place] [phone] ===== Patient Name: LOBO MURDOCK : [...] report. Electronically signed: Chelita Lazcano. Transcribed by: [email or web address], User Resident: NIRMALA MONGE Electronically Signed by: CHELITA LAZCANO @ 04/20/2022 01:43 PM I personally read this/these film(s) with this resident Normal [facility] Comment on above: Order Comment: Evalu ate RHEUMATOID FACTOR SERUMon RA <20 Normal 0-20 [facility] Comment on above: Performed By: #### 6 1405, 90716 #### [facility] [address] [place] [address], [facility] SEDIMENTATION RATEon 022 SED RATE 38 mm/hr High 0-20 [facility] Comment on above: Performed By: #### 5 6506, 33717 ####[facility] [place] [address], [facility] TIBC- INCLUDES IRONon 2021 FE SATURATION 30 % Normal 20-50 [facility] Comment on above: Performed By: #### 3 5515, 97240, 25168 #### [facility] [address] [place] [address], [facility] Iron [Mass/Vol] 115 ug/dL Normal 50-212 [facility] Comment on above: Performed By: #### 3 5515, 53332, 57056 #### [facility] [address] [place] [address], [facility] TIBC 378 mcg/dL Normal 250-450 [facility] Comment on above: Performed By: #### 3 5515, 62186, 11118 #### [facility] [address] [place] [address], [facility] UIBC 263 mcg/dL Normal 155-355 [facility] Comment on above: Performed By: #### 3 5515, 23998, 91131 #### [facility] [address] [place] [address], [facility] CALCIUMon 04-09-2022 Calcium [Mass/Vol] 9.6 mg/dL Normal 8.5-10.1 [facility] Comment on above: Performed By: #### VALERIO MADRIGAL #### [facility] [address] [place] [address] [address] Dang Grimm CREATININEon 04-09-2022 Creatinine [Mass/Vol] 1.07 mg/dL Critically high 0.55-1.02 [facility] Comment on above: Performed By: #### VALERIO MADRIGAL #### [facility] [address] [place], [place] [address] Dr. Dang Grimm EGFR-AF TAIWANESE >60 Normal >=60 [facility] Comment on above: Performed By: #### C VALERIO ADAMS #### [facility] [address] [place], [place] [address] Dr. Dang Grimm EGFR-NON AF TAIWANESE 50 mL/min/1.73m2 Critically low >=60 [facility] Comment on above: Performed By: #### VALERIO MADRIGAL #### [facility] [address] [place], [place] [address] Dr. Dang Grimm Vital Signs Date Time Vital Sign Value Performing Clinician Facility 10-02-2023 09:55-0500 Diastolic blood pressure 67 mm[Hg] MD Patricia Stanford Work Phone: [facility] 10-02-2023 09:55-0500 Heart rate 80 /min MD Patricia Stnaford Work Phone: [facility] 10-02-2023 09:55-0500 Respiratory rate 16 /min MD Patricia Stanford Work Phone: [facility] 10-02-2023 09:55-0500 SaO2% (BldA) [Mass fraction] 99 % MD Patricia Stanford Work Phone: [facility] 10-02-2023 09:55-0500 Systolic blood pressure 108 mm[Hg] MD Patricia Stanford Work Phone: [facility] 10-02-2023 07:07-0500 Body height 160.02 cm MD Patricia Stanford Work Phone: [facility] 10-02-2023 07:07-0500 Body weight 56.69 kg MD Patricia Stanford Work Phone: [facility] 08-30-2023 10:30-0500 Body height 157.48 cm Patricia Stanford Other [facility] 08-30-2023 10:30-0500 Body mass index (BMI) [Ratio] 21.73 kg/m2 Patricia Stanford Other [facility] [employer] Other 08-30-2023 10:30-0500 Body weight 53.89 kg Patricia Stanford Other [facility] [employer] Other 08-30-2023 10:30-0500 Body weight 53.88 kg MD Patricia Stanford Work Phone: [facility] 08-30-2023 10:30-0500 Diastolic blood pressure 74 mm[Hg] Patricia Stanford Other [facility] 08-30-2023 10:30-0500 Systolic blood pressure 122 mm[Hg] Patricia Stanford Other [facility] 08-21-2023 13:45-0500 Body height 157.48 cm Imad Asaad Other [facility] 08-21-2023 13:45-0500 Body mass index (BMI) [Ratio] 21.58 kg/m2 Imad Asaad Other [facility] [employer] Other 08-21-2023 13:45-0500 Body weight 53.52 kg Imad Asaad Other [facility] 07-15-2023 11:30-0500 Body height 157.48 cm Patricia Stanford Other [facility] 07-15-2023 11:30-0500 Body mass index (BMI) [Ratio] 21.73 kg/m2 Patricia Stanford Other [facility] [employer] Other 07-15-2023 11:30-0500 Body weight 53.89 kg Patricia Stanford Other [facility] [employer] Other 07-15-2023 11:30-0500 Body weight 53.88 kg MD Patricia Stanford Work Phone: [facility] 07-15-2023 11:30-0500 Diastolic blood pressure 78 mm[Hg] Patricia Stanford Other [facility] 07-15-2023 11:30-0500 Systolic blood pressure 148 mm[Hg] Patricia Stanford Other [facility] 07-06-2023 09:20-0500 Body height 157.48 cm MD Patricia Stanford Work Phone: [facility] 07-06-2023 09:20-0500 Body weight 55.51 kg MD Patricia Stanford Work Phone: [facility] Encounters Encounter Date Encounter Type Care Provider Facility Start: 10-14-2023 End: 10-15-2023 ambulatory Ara Maier MD Facility:[facility] Start: 10-04-2023 End: 10-04-2023 ambulatory Imad Asaad Other [facility] Other Start: 10-04-2023 Telephone encounter Imad Asaad [facility] Start: 10-02-2023 Non-patient / Non-visit MD Marlys Stanford Work Phone: [facility] Work Phone: Start: 10-02-2023 End: 10-02-2023 ambulatory Patricia Stanford Facility:[facility] Start: 10-02-2023 End: 10-02-2023 Admission to same day surgery center MD Patricia Stanford Work Phone: [facility] Work Phone: Start: 10-02-2023 End: 10-02-2023 ambulatory MD Patricia Stanford Work Phone: [facility] Work Phone: Start: 09-23-2023 End: 09-23-2023 ambulatory Patricia Stanford Other [facility] Other Start: 09-23-2023 Telephone encounter Patricia Stanford [facility] Start: 09-09-2023 End: 09-09-2023 ambulatory CARI Keith APLING Not Available Start: 09-04-2023 End: 09-04-2023 ambulatory CARI Keith APLING Not Available Start: 09-03-2023 End: 09-03-2023 ambulatory Patricia Stanford Other [facility] Other Start: 09-03-2023 Telephone encounter Patricia Stanford [facility] Start: 08-30-2023 End: 08-30-2023 ambulatory Patricia Stanford Other [facility] Other Start: 08-30-2023 Office outpatient vi sit 15 minutes Patricia Stanford [facility] Start: 08-30-2023 End: 08-30-2023 Patient encounter procedure MD Patricia Stanford Work Phone: [facility]- Start: 08-23-2023 End: 08-23-2023 ambulatory Patricia Stanford Other [facility] Other Start: 08-23-2023 Telephone encounter Patricia Stanford [facility] Start: 08-21-2023 End: 08-21-2023 ambulatory Imad Asaad Other [facility] Other Start: 08-21-2023 Office outpatient ne w 45 minutes Imad Asaad [facility] Start: 08-21-2023 End: 08-21-2023 Patient encounter procedure MD Patricia Stanford Work Phone: [facility] Work Phone: Start: 07-15-2023 End: 07-15-2023 ambulatory Patricia Stanford Other [facility] Other Start: 07-15-2023 Office outpatient vi sit 15 minutes Patricia Stanford [facility] Start: 07-15-2023 Telephone encounter Patricia Stanford [facility] Start: 07-15-2023 End: 07-15-2023 Patient encounter procedure MD Patricia Stanford Work Phone: [facility] Work Phone: Start: 07-06-2023 End: 07-06-2023 Patient encounter procedure MD Patricia Stanford Work Phone: [facility] Luis Alfredo Work Phone: Start: 05-06-2023 End: 05-07-2023 ambulatory Ara Maier MD Facility:[facility] Start: 04-22-2023 End: 04-23-2023 ambulatory Ara Maier MD Facility:[facility] Start: 10-03-2022 End: 10-05-[address] PATRICIA STANFORD Facility: Start: 09-27-2022 End: 09-28-[address] MASSIMO MATTHEWS . Facility: Start: 09-11-2022 End: 09-11-[address] MASSIMO MATTHEWS . Facility:[facility] Start: 09-07-2022 End: 10-17-[address] MASSIMO MATTHEWS . Facility:[facility] Start: 09-04-2022 End: 09-05-[address] MASSIMO MATTHEWS . Facility:[facility] Start: 07-26-2022 Encounter for preprocedural laboratory examination DR MASSIMO MATTHEWS . [facility] Start: 07-24-2022 End: 07-24-[address] MASSIMO MATTHEWS . Facility: Start: 07-20-2022 End: 07-21-[address] MASSIMO MATTHEWS . Facility:[facility] Start: 07-20-2022 End: 07-21-2022 Encounter for preprocedural laboratory examination DR MASSIMO MATTHEWS . Facility:[facility] Start: 07-11-2022 End: 07-12-[address] MASSIMO MATTHEWS . Facility:[facility] Start: 06-19-2022 End: 06-19-[address] MASSIMO MATTHEWS . Facility:[facility] Start: 06-06-2022 End: 06-07-[address] MASSIMO MATTHEWS . Facility: Start: 04-20-2022 End: 04-21-2022 ambulatory ARIADNA NOLAN Facility:[facility] Start: 04-09-2022 End: 04-10-[address] PATRICIA STANFORD Facility:[facility] Start: 02-27-2022 End: 02-28-2022 ambulatory DEFAULT PHYSICIAN Facility:[facility] Start: 02-22-2022 End: 02-23-[address] MASSIMO MATTHEWS . Facility:[facility] Start: 12-06-2021 ambulatory MICHELE SALDAÑA . Facility:[facility] Start: 11-30-2021 End: 12-01-[address] MASSIMO MATTHEWS . Facility:[facility] Start: 10-25-2020 Pre-procedure evaluation check Patricia Stanford Other [facility] Other Procedures Date Procedure Procedure Detail Performing Clinician Start: 10-02-2023 Esophagogastroduodenoscopy MD Patricia fox Work Phone: Start: 07-10-2017 Screening mammography Patricia Stanford Other Start: 07-19-2016 General examination of patient Patricia padilla Other Plan of Treatment Date Care Activity Detail Author Start: 10-02-2023 [facility] Immunizations Immunization Date Immunization Notes Care Provider Fa cility 05-17-2022 zoster vaccine, live Patricia Stanford Other [facility] 04-23-2022 influenza virus vaccine, split virus (incl. purified surface antigen) Patricia Stanford Other [facility] Other 04-23-2022 influenza virus vaccine, unspecified formulation MD Patricia Stanford Work Phone: [facility] 04-23-2022 pneumococcal polysaccharide vaccine, 23 valent Patricia Stanford Other [facility] 04-23-2022 tetanus toxoid, adsorbed Patricia Stanford Other [facility] 05-25-2021 influenza virus vaccine, split virus (incl. purified surface antigen) Patricia Stanford Other [facility] Other 05-25-2021 influenza virus vaccine, unspecified formulation MD Patricia Stanford Work Phone: [facility] 10-18-2020 COVID-19 Vaccine Moderna - Documentation Purposes Only Patricia Stanford Other [facility] 09-19-2020 COVID-19 Vaccine Moderna - Documentation Purposes Only Patricia Stanford Other [facility] 04-16-2020 influenza virus vaccine, split virus (incl. purified surface antigen) Patricia Stanford Other [facility] [employer] Other 04-16-2020 influenza virus vaccine, unspecified formulation MD Patricia Stanford Work Phone: [facility] 05-12-2019 influenza virus vaccine, split virus (incl. purified surface antigen) Patricia Stanford Other [facility] [employer] Other 05-12-2019 influenza virus vaccine, unspecified formulation MD Patricia Stanford Work Phone: [facility] 04-18-2018 influenza virus vaccine, split virus (incl. purified surface antigen) Patricia Stanford Other [facility] [employer] Other 04-18-2018 influenza virus vaccine, unspecified formulation MD Patricia Stanford Work Phone: [facility] 07-10-2017 pneumococcal conjuga te vaccine, 13 valent Patricia Stanford Other [facility] 04-18-2017 influenza virus vaccine, split virus (incl. purified surface antigen) Patricia Stanford Other [facility] [employer] Other 04-18-2017 influenza virus vaccine, unspecified formulation MD Patricia Stanford Work Phone: [facility] 05-09-2016 influenza virus vaccine, split virus (incl. purified surface antigen) Patricia Stanford Other [facility] [employer] Other 05-09-2016 influenza virus vaccine, unspecified formulation MD Patricia Stanford Work Phone: [facility] 05-27-2013 tetanus and diphther ia toxoids, adsorbed, preservative free, for adult use (5 Lf of tetanus toxoid and 2 Lf of diphtheria toxoid) Patricia Stanford Other [facility] 12-24-2011 pneumococcal polysaccharide vaccine, 23 valent Patricia Abdoulaye Other [facility] Payers Date Payer Category Payer Medicare 2022 Unknown 1959 Medicare [id number] 1959 Unknown [id number] 1945 Unknown [id number] 2.16.8 40.1.228588.3.579.2.647 1945 Unknown [id number] 2.16.8 40.1.705316.3.579.2.647 1945 Unknown [id number] 2.16.84 0.1.368633.3.579.2.593 1946 Unknown [id number] 2.16.84 0.1.590207.3.579.2.593 1946 Unknown [id number] 2.16.84 0.1.084211.3.579.2.593 1946 Unknown [id number] 2.16.84 0.1.250139.3.579.2.593 1946 Unknown [id number] 2.16.84 0.1.206135.3.579.2.593 1946 Unknown [id number] 2.16.84 0.1.262141.3.579.2.593 1946 Unknown [id number] 2.16.84 0.1.541281.3.579.2.593 1946 Unknown [id number] 2.16.84 0.1.536838.3.579.2.593 1946 Unknown [id number] 2.16.84 0.1.678904.3.579.2.593 1946 Unknown [id number] 2.16.84 0.1.809978.3.579.2.593 1946 Unknown [id number] 2.16.84 0.1.861084.3.579.2.593 1946 Unknown [id number] 2.16.84 0.1.463157.3.579.2.593 1946 Unknown [id number] 2.16.84 0.1.954573.3.579.2.593 1946 Unknown [id number] 2.16.84 0.1.045873.3.579.2.593 1946 Unknown [id number] 2.16.84 0.1.437469.3.579.2.1259 1946 Unknown [id number] 2.16.84 0.1.749888.3.579.2.1259 1946 Unknown [id number] 2.16. 840.1.007976.3.579.2.196 1945 Unknown [id number] 2.16. 840.1.349504.3.579.2.196 1945 Unknown [id number] 2.16. 840.1.122759.3.579.2.196 Medicare Medicare Outpatient [id number] Social History Date Type Detail Facility Unknown if ever smoked [facility] Other Sex Assigned At Sex Assigned At Bir th [facility] Other Start: 10-02-2023 Tobacco smoking status NHIS Never smoked tobacco (finding) [facility] Start: 1945 Sex Assigned At Female F [facility] Goals Date Patient Goal Desired Activity /State Clinical Notes 11-30-2021 to 10-02-2023 Note Date & Type Note Facility 10-02-2023 Procedure note [facility] 08-30-2023 Evaluation note Encounter Date Diagnosis Assessment [...] try OTC ones in meantime. Referral placed. [facility] Other 01-10-2024 Evaluation note* Encounter Date Diagnosis Assessment Notes Treatment Notes Treatment Clinical Notes Aug, GERD (gastroesophageal reflux disease) (ICD-10 - K21.9) Aug, Chronic diarrhea (ICD-10 - K52.9) Patient reports that her last colonoscopy was at the [facility] about 11 years ago and that she can not remember who preformed the procedure Aug, Abdominal pain (ICD-10 - R10.9) Aug, Weight loss, unintentional (ICD-10 - R63.4) Aug, Change in bowel habits (ICD-10 - R19.4) Patinet is advised to have a colonoscopy ordered, scheduled and prep instructions given today Risks and benefits of procedure explained to patient; patient verbalizes understanding. [facility] Other 12-04-2023 Evaluation note* Encounter Date Diagnosis [...] (ICD-10 - M81.0) Due for Dexa 08/2023 [facility] Other 02-16-2023 NoteCONSULTATION CONSULTATION DATE: 09/27/2022 HISTORY OF PRESENT ILLNESS: This is a 76-year-old female who returns to the clinic status post LES on 09/11/2022. The patient states she was afforded between 50-60% relief. Depending on her physical activity, determines her level of comfort. Activities such as standing, walking, lying, early childhood hours, housework and lifting greatly aggravate her [...] Patient is in agreement with this plan.[id number] NoteCONSULTATION CONSULTATION DATE: 09/04/2022 HISTORY OF PRESENT [...] patient understands and would like to proceed.[facility] [id number] NoteCONSULTATION CONSULTATION DATE: 07/11/2022 HISTORY OF PRESENT [...] followed up in the clinic post procedure.[facility] [id number] NoteCONSULTATION PROCEDURE DATE: 07/11/2022 PREOPERATIVE DIAGNOSIS: Bilateral [...] will be followed up in the clinic.[facility] 06-06-2022 NoteCONSULTATION CONSULTATION DATE: 06/06/2022 HISTORY [...] pain returning. 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 The patient has not seen a billet bed operator in the past. REVIEW OF SYSTEMS, PAST [...] mg q.h.s. A referral to rheumatology near [place] will be sent on her behalf and I highly encouraged her to seek consultation, particularly since she has a familial history of autoimmune diseases. The patient agrees with the plan of care and will be followed up in the office in three months' time. [facility] Signed and Approved by: MICHELE SALDAÑA . 03/02/2022 14:16:00[facility]04-21-2022 NoteCONSULTATION Consultation Date:11/30/2021 PREOPERATIVE DIAGNOSIS: Right gluteal [...] and Approved by: MICHELE SALDAÑA . 12/06/2021 16:15:00[facility]04-21-2022 NoteCONSULTATION Consultation Date:11/30/2021 PAIN MANAGEMENT CONSULTATION HISTORY [...] her pain are twisting, turning, pushing, pulling, early childhood hours, lifting and transitioning positions. Lying down and using heat decrease her pain. Prior to the procedure, she was in a state of acute pain and was placed on a short term course of Ceres 5/325 b.i.d. p.r.n. Patient states she only [...] and Approved by: MICHELE SALDAÑA . 12/06/2021 16:15:00[facility] noteNo InformationNort [employer] Other Evaluation noteNo assessment information available [facility] Work Phone: History and physical note Author Sunny Torres [facility] October 02, 2023 8:54am Note Date/Time October 02, 2023 8:54am [facility] [address] [place] [address] Gastroenterology H&P Signed Patient: Lobo Murdock MR#: [id number] : 1945 Acct:[id number] Age/Sex: 78 / F Adm Date: 4 Loc: Room: Type: [facility] Attending Dr: Sunny Torres MD Copies to: [...] <Electronically signed by Sunny Torres MD> 10/02/23 0811 [facility] Work Phone: History general Narrative - [...] shoulder pain 1982 Hospitalization History migraines 1992 [facility] Other Hospital Discharge instructions Additional Instructions DISCHARGE [...] up in the office - Office number [phone]. [facility] Work Phone: Summary Purpose Family History Relationship Condition Age at Onset Recorded Date/T sania father Unknown Malignant neoplasm of prostate Unknown grandparent Unknown grandparent Diabetes mellitus Unknown Unknown Not Specified Malignant neoplasm of ovary Unknown Malignant neoplasm of uterus Unknown brother Malignant neoplasm of colon Unknown brother Malignant neoplasm of throat Unknown Advance Directives Advance Directive Response Recorded Date/ Time Advance Directives No September 1:12pm Reason for Referral Reason diarrhea x 6 weeks a nd increased heartburn. Diagnosis 1 Chronic diarrhea (K5 2.9) Referral Organization [facility] pipo Referring Provider First Name Patricia Referring Provider Last Name Abdoulaye Referring Provider Specialty [facility] Referred Organization [facility] Referred Address [address],[address] Referred Provider Specialty Gastroentero logy Referral Priority Routine Reason *FU 09/06 R foot p ain Diagnosis 1 Pain of left great t oe (M79.675) Referral Organization [facility] [employer] [facility] pipo Referring Provider First Name Patricia Referring Provider Last Name Abdoulaye Referring Provider Specialty [facility] Referred Organization [facility] Referred Provider Odin Chong Referred Address [address] [place], [place],[address] Referred Provider Specialty Podiatry - S urgical [...] and content) DATE CREATED AUTHOR 05/09/2022 [facility] DATE CREATED AUTHOR AUTHOR'S ORGANIZ ATION 11/17/2022 [facility] DATE CREATED AUTHOR AUTHOR'S ORGANIZ ATION 09/09/2023 [facility] EPIC DATE CREATED AUTHOR AUTHOR'S ORGANIZ ATION 10/09/2023 [facility] DATE CREATED AUTHOR AUTHOR'S ORGANIZ ATION 10/18/2023 [facility] REASON FOR VISIT (unrecogniz ed section and content) Stomach/Bowel IssueslabsPATI ENT IS HERE AT THE REQUEST OF DR. STANFORD FOR CHRONIC DIARRHEA, ABD PAIN, WEIGHT LOSS & HEARTBURNdexaLeft FootGI CONSULTmessageNo Information Care Teams (unrecognized sec tion and content) Team Status: Active Member Role Status Dates Patricia Stanford MD Primary Care Provider Active Team Status: Inactive Member Role Status Dates JOSE CRUZ CrooksC Attending Provider Active S tart: July 06, [...] BE BASED ON THE PRIMARY CLINICAL RECORDS. [employer] [facility]. provides no warranty or guarantee of the accuracy or completeness of information in this document.
--- NOTE | 2023-11-11 09:54 | P.GSHP_ITS ---
History of Present Illness History of Present Illness Chief complaint: left hallux valgus, bunionette left Narrative: Patient presents for preadmission testing. Please see HPI from Dr. Chong dated 10/29/2023. Review of Systems ROS Narrative Please see ROS from Dr. Chong dated 10/29/2023. [facility] Medical History (Updated 11/11/23 @ 09:56 by Kriss Gibbs NP) Primary osteoarthritis, left ankle and foot ?M19.072 - Primary osteoarthritis, left ankle and foot (ICD-10) Bunionette of left foot ?M21.622 - Bunionette of left foot (ICD-10) Hallux valgus (acquired), left foot ?M20.12 - Hallux valgus (acquired), left foot (ICD-10) Back pain ?M54.9 - Dorsalgia, unspecified (ICD-10) Arthritis ?M19.90 - Unspecified osteoarthritis, unspecified site (ICD-10) DDD (degenerative disc disease) Vertigo ?R42 - Dizziness and giddiness (ICD-10) Headache ?R51.9 - Headache, unspecified (ICD-10) Migraine ?G43.909 - Migraine, unspecified, not intractable, without status migrainosus (ICD-10) Multiple fractures ?T07.XXXA - Unspecified multiple injuries, initial encounter (ICD-10) Microscopic colitis ?K52.839 - Microscopic colitis, unspecified (ICD-10) Hiatal hernia ?K44.9 - Diaphragmatic hernia without obstruction or gangrene (ICD-10) Syncopal episodes (2019) ?R55 - Syncope and collapse (ICD-10) Osteopenia ?M85.80 - Other specified disorders of bone density and structure, unspecified site (ICD-10) Osteoarthritis ?M19.90 - Unspecified osteoarthritis, unspecified site (ICD-10) Neck pain ?M54.2 - Cervicalgia (ICD-10) Low back pain ?M54.50 - Low back pain, unspecified (ICD-10) Heartburn ?R12 - Heartburn (ICD-10) Acid reflux ?K21.9 - Gastro-esophageal reflux disease without esophagitis (ICD-10) Surgical History (Updated 11/11/23 @ 09:52 by Kriss Gibbs NP) History of esophagogastroduodenoscopy (EGD) ?Z98.890 - Other specified postprocedural states (ICD-10) History of colonoscopy ?Z98.890 - Other specified postprocedural states (ICD-10) History of carpal tunnel release ?Z98.890 - Other specified postprocedural states (ICD-10) S/P cataract extraction and insertion of intraocular lens ?Z98.49 - Cataract extraction status, unspecified eye (ICD-10) ?Z96.1 - Presence of intraocular lens (ICD-10) History of repair of rotator cuff ?Z98.890 - Other specified postprocedural states (ICD-10) H/O radiofrequency ablation (RFA) of nerve of lumbar spine ?Z98.890 - Other specified postprocedural states (ICD-10) H/O shoulder surgery ?Z98.890 - Other specified postprocedural states (ICD-10) History of ear, nose, and throat (ENT) surgery ?Z98.890 - Other specified postprocedural states (ICD-10) H/O carpal tunnel repair ?Z98.890 - Other specified postprocedural states (ICD-10) H/O wrist surgery ?Z98.890 - Other specified postprocedural states (ICD-10) H/O section ?Z98.891 - History of uterine scar from previous surgery (ICD-10) Family History (Updated 11/11/23 @ 09:34 by Kriss Gibbs NP) Other Family history of colon cancer Family history of diabetes mellitus Family history of heart disease Family history of ovarian cancer Family history of prostate cancer Family history of throat cancer Family history of uterine cancer Social History (Updated 11/11/23 @ 09:24 by Kriss Gibbs NP) Within the past year, how often did you have a drink containing alcohol: monthly or less Smoking status: Never smoker Non-prescribed substance use: denies use Highest level of school completed/degree received: some college, no degree Meds Home Medications and Allergies Home Medications ?Medication ?Instructions ?Recorded ?Confirmed ?Type baclofen 10 mg tablet 10 mg PO .HS 04/10/23 11/11/23 History denosumab 60 mg/mL subcutaneous 60 mg subcut .[id number] 04/10/23 11/11/23 History syringe (Prolia) geriatric multivitamin-min 1 cap PO BID 04/10/23 11/11/23 History lidocaine 5 % topical cream 1 applic topical TID PRN pain 04/10/23 11/11/23 History magnesium 200 mg tablet 400 mg PO BID 04/10/23 11/11/23 History tramadol 50 mg tablet 50 mg PO BID PRN pain 04/10/23 11/11/23 History pantoprazole 40 mg tablet,delayed 40 mg PO DAILY 07/24/23 11/11/23 History release budesonide 3 mg 3 mg PO DAILY 10/14/23 11/11/23 History capsule,delayed,extended release acetaminophen 650 mg 650 mg PO Q12H PRN pain 11/11/23 11/11/23 History tablet,extended release calcium 325 mg-vit D3 12.5 1 tab PO DAILY 11/11/23 11/11/23 History mcg-zinc 2.75 dx-safelr-cybpytqic tablet coenzyme Q10 100 mg capsule (Co 600 mg PO DAILY 11/11/23 11/11/23 History Q-10) collagen,hydrolysate 500 mg-biotin cap PO 11/11/23 History 800 mcg-ascorbic acid 50 mg capsule (Collagen 1500 Plus C) omega 4-hcq-qlf-fish oil 1,000 mg 4 cap PO DAILY 11/11/23 11/11/23 History (120 mg-180 mg) capsule (Fish Oil) Allergies Allergy/AdvReac Type Severity Reaction Status Date / Time No Known Drug Allergies Allergy Verified 11/11/23 09:13 Exam Narrative Exam Narrative: Constitutional: Awake, alert, comfortable, well-appearing, appears much younger than stated age, nontoxic, interactive, vital signs as charted Head: Normocephalic, atraumatic Neck: Supple, normal appearance, normal range of motion, no meningeal signs, no lymphadenopathy Respiratory: No respiratory distress, breath sounds clear Cardiovascular: Regular rate and rhythm, strong and regular heart tones Neuro: No neurological deficits, normal sensation Psychiatric: Oriented ?3, normal affect Assessment and Plan Assessment and Plan (1) Hallux valgus (acquired), left foot: (2) Bunionette of left foot: (3) Primary osteoarthritis, left ankle and foot: Plan Left 1st metatarsal phalangeal joint fusion, tailor's bunionectomy, bone graft as needed scheduled with Dr. Chong 11/25/2023.
[2023-11-11 10:40] LABS: Anion Gap 12.2; BUN Creatinine Ratio 18.9; Calcium 10.6 mg/dL (8.5-10.1); Carbon Dioxide 30.9 mmol/L (21.0-32.0); Chloride 104 mmol/L (98-107); Estimated GFR (African America >60 (>=60); Estimated GFR (Non-African Ame 50 (>=60); Glucose 79 mg/dL (74-106); Potassium 4.1 mmol/L (3.5-5.1); Sodium 143 mmol/L (136-145)
== END 2023-11-11 08:57 | disposition home or self-care (01) ==
LOC: PST 08:56
PROVIDERS: PCP Family Medicine; Visit Provider Podiatrist Foot & Ankle Surgery
DX: Z01.810 Encounter for preprocedural cardiovascular examination (principal); Z01.812 Encounter for preprocedural laboratory examination; Z01.818 Encounter for other preprocedural examination; M20.12 Hallux valgus (acquired), left foot; M21.622 Bunionette of left foot
CPT/HCPCS: 80048; 93005; G0463

== ENCOUNTER 2023-11-13 09:25 | Outpatient (OUT) | payer MEDICARE, SELFPAY ==
--- NOTE | 2023-11-13 09:28 | P.CN_ITS ---
Consult Note: HPI Data of Consult Patient: known to practice within the last 3 years Consult date: 05/29/23 Requesting Physician: Melissa Soni NP Primary Care Provider: Patricia Nicolas MD Consult Narrative Reason for consult: f/u Narrative: Arianne Ko a pleasant 77 year old female presents for evaluation of chronic low back and right SIJ pain. Patient recently underwent bilateral L4-5, L5-S1 radiofrequency ablation with mild improvement of facet mediated pain, however she continues to have moderate to severe right SIJ pain. Pain today 4/10 constant increasing to 9/10 with standing sitting lying and activity. Patient did not f/u with [facility] for consideration of right SIJ fusion and would like to discuss another referral. Patient has stopped diclofenac/nsaids due to stomach issues and upcoming bunion surgery. Patient noticing increase in pain. Continues to utilize tramadol 50mg BID PRN without side effects and notices improvement in pain and functional ability. cc:: CC: Melissa Soni NP Review of Systems 2 ROS0 Status of ROS 10 or more systems reviewed and unremark able except as noted in history and below Musculoskeletal Reports: back pain and joint pain PFSH PFSH Medical History Primary osteoarthritis, left ankle and foot ?M19.072 - Primary osteoarthritis, left ankle and foot (ICD-10) Bunionette of left foot ?M21.622 - Bunionette of left foot (ICD-10) Hallux valgus (acquired), left foot ?M20.12 - Hallux valgus (acquired), left foot (ICD-10) Back pain ?M54.9 - Dorsalgia, unspecified (ICD-10) Arthritis ?M19.90 - Unspecified osteoarthritis, unspecified site (ICD-10) DDD (degenerative disc disease) Vertigo ?R42 - Dizziness and giddiness (ICD-10) Headache ?R51.9 - Headache, unspecified (ICD-10) Migraine ?G43.909 - Migraine, unspecified, not intractable, without status migrainosus (ICD-10) Multiple fractures ?T07.XXXA - Unspecified multiple injuries, initial encounter (ICD-10) Microscopic colitis ?K52.839 - Microscopic colitis, unspecified (ICD-10) Hiatal hernia ?K44.9 - Diaphragmatic hernia without obstruction or gangrene (ICD-10) Syncopal episodes (2019) ?R55 - Syncope and collapse (ICD-10) Osteopenia ?M85.80 - Other specified disorders of bone density and structure, unspecified site (ICD-10) Osteoarthritis ?M19.90 - Unspecified osteoarthritis, unspecified site (ICD-10) Neck pain ?M54.2 - Cervicalgia (ICD-10) Low back pain ?M54.50 - Low back pain, unspecified (ICD-10) Heartburn ?R12 - Heartburn (ICD-10) Acid reflux ?K21.9 - Gastro-esophageal reflux disease without esophagitis (ICD-10) Surgical History History of esophagogastroduodenoscopy (EGD) ?Z98.890 - Other specified postprocedural states (ICD-10) History of colonoscopy ?Z98.890 - Other specified postprocedural states (ICD-10) History of carpal tunnel release ?Z98.890 - Other specified postprocedural states (ICD-10) S/P cataract extraction and insertion of intraocular lens ?Z98.49 - Cataract extraction status, unspecified eye (ICD-10) ?Z96.1 - Presence of intraocular lens (ICD-10) History of repair of rotator cuff ?Z98.890 - Other specified postprocedural states (ICD-10) H/O radiofrequency ablation (RFA) of nerve of lumbar spine ?Z98.890 - Other specified postprocedural states (ICD-10) H/O shoulder surgery ?Z98.890 - Other specified postprocedural states (ICD-10) History of ear, nose, and throat (ENT) surgery ?Z98.890 - Other specified postprocedural states (ICD-10) H/O carpal tunnel repair ?Z98.890 - Other specified postprocedural states (ICD-10) H/O wrist surgery ?Z98.890 - Other specified postprocedural states (ICD-10) H/O section ?Z98.891 - History of uterine scar from previous surgery (ICD-10) Family History Other Family history of colon cancer Family history of diabetes mellitus Family history of heart disease Family history of ovarian cancer Family history of prostate cancer Family history of throat cancer Family history of uterine cancer Social History Within the past year, how often did you have a drink containing alcohol: monthly or less Smoking status: Never smoker Non-prescribed substance use: denies use Highest level of school completed/degree received: some college, no degree Meds Home Medications and Allergies Home Medications ?Medication ?Instructions ?Recorded ?Confirmed ?Type baclofen 10 mg tablet 10 mg PO .HS 04/10/23 11/11/23 History denosumab 60 mg/mL subcutaneous 60 mg subcut .[id number] 04/10/23 11/11/23 History syringe (Prolia) geriatric multivitamin-min 1 cap PO BID 04/10/23 11/11/23 History lidocaine 5 % topical cream 1 applic topical TID PRN pain 04/10/23 11/11/23 History magnesium 200 mg tablet 400 mg PO BID 04/10/23 11/11/23 History tramadol 50 mg tablet 50 mg PO BID PRN pain 04/10/23 11/11/23 History pantoprazole 40 mg tablet,delayed 40 mg PO DAILY 07/24/23 11/11/23 History release budesonide 3 mg 3 mg PO DAILY 10/14/23 11/11/23 History capsule,delayed,extended release acetaminophen 650 mg 650 mg PO Q12H PRN pain 11/11/23 11/11/23 History tablet,extended release calcium 325 mg-vit D3 12.5 1 tab PO DAILY 11/11/23 11/11/23 History mcg-zinc 2.75 qt-nkdthr-jofgiljam tablet coenzyme Q10 100 mg capsule (Co 600 mg PO DAILY 11/11/23 11/11/23 History Q-10) collagen,hydrolysate 500 mg-biotin cap PO 11/11/23 History 800 mcg-ascorbic acid 50 mg capsule (Collagen 1500 Plus C) omega 6-ohv-llc-fish oil 1,000 mg 4 cap PO DAILY 11/11/23 11/11/23 History (120 mg-180 mg) capsule (Fish Oil) Allergies Allergy/AdvReac Type Severity Reaction Status Date / Time No Known Drug Allergies Allergy Verified 11/11/23 09:13 Exam Constitutional Documenting provider has reviewed patient's vital signs: yes Common normals: no apparent distress, oriented x3, healthy appearing, alert and well nourished General appearance: cooperative HENMT Common normals: normocephalic, hearing grossly normal bilaterally and moist oral mucous membranes Head and scalp: normocephalic Eye Common normals: PERRL Pupil: PERRL Neck & C-Spine Common normals: full ROM General: normal visual inspection Chest Common normals: inspection of chest normal Respiratory Common normals: normal respiratory effort, no retractions and no use of accessory muscles Back & Pelvis Lumbar spine/lower back: normal to inspection, lumbar ROM normal and pain with ROM Sacroiliac joints: SI joint(s) abnormal (bilateral positive DEVON, thigh thrust, stephanie test. Worse on right side. ) SI joint details: tender to palpation (R>L) Back image (female): 2 1. significant pain, tenderness on exam Extremity Common normals: normal to inspection and full ROM Neuro Common normals: oriented x3, CN's II-XII intact bilaterally, moves all extremities, no focal motor deficits, no sensory deficits noted and deep tendon reflexes 2+ bilaterally Sensorium/orientation: alert Gait (neuro): antalgic Motor exam: strength 5/5 throughout and no movement abnormalities noted Psych Common normals: mental status grossly normal, thought process normal, cooperative, affect normal, speech normal and activity/motor behavior normal Speech: normal speech Thought process: normal thought process Results Additional Findings Additional findings: If on a controlled substance or opioids, I have checked an [place] report on this patient and there are no aberrancies noted in the prescribing history.??If on a controlled substance or opioid a drug screen was completed and reviewed within the last year, and if there has not been a drug screen completed we ordered one today to monitor higher risk, state monitored pain medication use. As part of providing excellent, safe, comprehensive care, the following was completed at our patient's visit: 1. A medication reconciliation and review to ensure accurate knowledge of current/active medications, including asking our patients to inform us about any [id number]-kxz-lpskzwl medications or herbal remedies/nutritional supplements/alternative remedies. 2. A review to specifically ensure our patients have had annual screening for screening for depression, screening for tobacco use, and screening for unhealthy alcohol use. For concerning screenings had a discussion with the patient, provided patient education, and recommended follow-up with primary care provider when appropriate. If patient noted with a risk of falling, they received education on strength, gait, and balance training to prevent future risk of falling. Assessment and Plan Assessment and Plan (1) Lumbar spondylosis: Assessment and Plan: The patient has had over 3 months of moderate to severe low back pain with functional impairment and inadequate response to conservative care including NSAIDS (unless there are contraindication such as concurrent blood thinners), multiple oral or topical pain medications, and home exercise program/physical therapy.? Patient has completed >6 weeks of guided home exercise program and/or formal physical therapy program without relief of their symptoms.? I have reviewed the imaging of the lumbar spine and no red flags were identified.? The imaging reveals radiographic findings consistent with lumbar spondylosis/lumbar facet arthropathy We discussed the risks and benefits of the procedure with the patient, and we are NOT planning on using sedation as outlined in the guidelines from Medicare unless there is a documented reason that sedation would be strongly recommended.?? ?The procedure will be completed with fluoroscopic guidance.? (2) Sacroiliac joint dysfunction of right side: (3) Sacroiliac joint pain: (4) Muscle spasm: (5) Encounter for long-term opiate analgesic use: Assessment and Plan: I feel these medications are improving the patient's quality of life and allow them to tolerate activities of daily living as well as participate in recreational activity.? The patient does not report intolerable side effects. The patient is NOT opioid naive and non-pharmacologic and non-opioid treatment has failed to significantly relieve the patient's pain and improve functionality. The patient has a diagnosis that is related to a somatic or visceral pain etiology. ? ?? I reviewed with the patient the potential risks and side effects with the use of? opioid medications including but not limited to respiratory depression,? sedation, and even . I verified the patient has access to naloxone should? these effects occur. I advised the patient to avoid the use of any other? sedation substances including alcohol, THC, and benzodiazepines while? taking opioid medications due to the risk of compounding side effects and? detrimental outcomes. I reviewed the [facility], pain treatment agreement, urine? drug screen, and opioid start talking forms. The patient was advised to let? their family know they had Naloxone in case they would need to administer? the medication.? ?? A drug screen was completed within the last year, and no aberrancies were noted regarding their use of controlled substances. The patient understands they are subject to the terms and conditions of the pain contract that they have signed. ? ?? I have checked an [place] report on this patient today and there are no aberrancies noted in the prescribing history.? Plan continue tramadol 50mg BID PRN for moderate to severe pain referral to Dr Reyes for evaluation and management of right SIJ dysfunction continue HEP as tolerated previous SIJ injections provided moderate relief however most recent injection lasted less than 3 months, hx of successful sacral RFAs but no longer covered by insurance f/u 3 months, sooner if needed
--- OUTSIDE RECORDS SUMMARY | 2023-11-13 09:39 | XMS_ITS | CCD ---
Author Organization [facility] Care Team Providers Care Securities Broker Name Role Phone PHYSICIAN, DEFAULT Admitting Unavailable [...] [place], DR PATRICIA Crain Primary Care Unavailable BYORN ., DR MASSIMO Cook Attending Unavailable ABDOULAYE, [...] Care Provider MD Melissa Imravindra Attending Provider Patricia Stanford Primary Care Unavailable Asaad, Imad Attending Unavailable Asaad, Imad Admitting Unavailable Gitorinitis , Ara Loomis Attending Unavailable Giedraitis , Ara Loomis Attending Unavailable Gieditis , Ara Loomis Attending Unavailable Allergies Allergy Classification Reported Allergen(s) Allergy Type Date of Onset Reaction(s) Facility (8 sources) Calcitonin ([place]) *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 Propensity to adverse reactions Comment:severe weakness [facility] Other Medications Current Medications Medication Drug Class(es) [...] Active Subcutaneous for 0 *Pick strength-form from [employer] for eRX* Aug, Active diclofenac sodium 50 [...] day for 0 days *Pick strength-form from [employer] for eRX* Oct, Active Multiple Vitamin (8 [...] Other aftercare (8 sources) 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; Translations: [custodial (current) use of bisphosphonates] Episodic Other connective [...] Test Name Value Interpretation Reference Range Facility [facility] 10-02-2023 L Specimen: [id number] Received: 10/02/23 Status: OJ Brice Num: [id number] Spec Type: Surgical Subm Dr: Sunny Torres MD Tissues: A GASTRIC FOR HP (GASTRIC BX R/O H.PYLORI) B Colon Biopsy (RANDOM COLON BX R/O MICROSCO) Procedures: HE/4, Gross/Micro L4/2, H PYLORI Age/ Patient Sex Location Account Attending Physician MaikelLobo 78/F [id number] Sunny Torres MD SPEC NUM: [id number] RECD: 10/02/23 STATUS: OJ BRICE NUM: [id number] TEO: 10/02/[address]: Sunny Torres MD ENTERED: 10/02/23 [facility] DR: SPEC TYPE: Surgical DEPT: S ORDERED: [...] name, date of and random colon Specimen: [id number] Received: 10/02/23 Status: OJ Brice Num: [id number] Spec Type: Surgical Subm Dr: Sunny Torres MD Tissues: A GASTRIC FOR HP (GASTRIC BX R/O H.PYLORI) B Colon Biopsy (RANDOM COLON BX R/O MICROSCO) Procedures: HE/4, Gross/Micro L4/2, H PYLORI Patient: MakielLobo [id number] (Continued) Specimen: [id number] Received: 10/02/23 (Continued) Gross Description (Continued) Signed (signature on file) Patito Grimm MD 10/03/23 1430 Specimen: [id number] Received: 10/02/23 Status: OJ Brice Num: [id number] Spec Type: Surgical Subm Dr: Sunny Torres MD Tissues: A GASTRIC FOR HP (GASTRIC BX R/O H.PYLORI) B Colon Biopsy (RANDOM COLON BX R/O MICROSCO) Procedures: HE/4, Gross/Micro L4/2, H PYLORI Patient: Lobo Murdock [id number] (Continued) Specimen: [id number] Received: 10/02/23 (Continued) Gross Description (Continued) biopsy are 2 galvan translucent soft tissue fragments, 0.3 and 0.6 cm in greatest dimensions. Entirely submitted in one cassette labeled B1. CPT Codes [id number] [id number] Specimen: [id number] Received: 10/02/23 Status: OJ Brice Num: [id number] Spec Type: Surgical Subm Dr: Sunny Torres MD Tissues: A GASTRIC FOR HP (GASTRIC BX R/O H.PYLORI) B Colon Biopsy (RANDOM COLON BX R/O MICROSCO) Procedures: HE/4, Gross/Micro L4/2, H PYLORI Patient: Lobo Murdock [id number] (Continued) Signed (signature on file) Patito Grimm MD 10/03/[address] [facility] CALCIUMon 10-03-2022 Calcium [Mass/Vol] 8.9 mg/dL Normal 8.5-10.1 [facility] Comment on above: Performed By: #### VALERIO MADRIGAL #### [facility] [address] [place] [address] Dr. Dang Grimm CREATININEon 10-03-2022 Creatinine [Mass/Vol] 1.03 mg/dL Critically high 0.55-1.02 [facility] Comment on above: Performed By: #### VALERIO MADRIGAL #### [facility] [address] [place], [place] [address] Dr. Dang Grimm EGFR-AF ARGENTINE >60 Normal >=60 [facility] Comment on above: Performed By: #### C ANG[place], [place] #### [facility] [address] [place], [place] [address] Dr. Dang Grimm EGFR-NON AF ARGENTINE 52 mL/min/1.73m2 Critically low >=60 [facility] Comment on above: Performed By: #### C [place], [place] #### [facility] [address] [place], [place] [address] Dr. Dang Grimm Covid-19 PCR (CVDTB)on SARS-CoV-2 (COVID-19) RNA GENARO+probe Ql (Unsp spec) Not detected Normal NOT DETECTED [facility] Comment on above: Result Comment: This test is not yet approved or cleared by the [place] FDA. When there are no FDA-approved or cleared tests available, and other criteria are met, FDA can make tests available under an emergency access mechanism called an Emergency Use Authorization (EUA). The EUA for this test is supported by the [place] Machine Operator of Health and Human Service's (HHS's) [...] SARS-CoV-2. Performed By: #### C VDTBH #### [facility] [address] [place], [place] [address] Dr. Dang DUDLEYon 04-20-2022 OCTAVIA PATTERN SPECKLED Normal [facility] Comment on above: Result Comment: The MELCHOR [...] authority. Performed By: #### 1 0196 #### [facility] [address] OCTAVIA SCREEN 1:40 Normal <1:40,1:40 The [facility] [place] Comment on above: Result Comment: Test performed using MELCHOR IFA OCTAVIA Hep-2 Test, a pre-standardized assay designed for the qualitative and semi-quantitative detection of antinuclear antibodies. Performed By: #### 1 0196 #### [facility] [address] C REACTIVE PROTEINon 022 CRP [Mass/Vol] 2.5 mg/L Normal 0.0-7.0 The [facility] Comment on above: Performed By: #### 6 1405, 57747 #### [facility] [address] CBC COMPLETE BLOOD COUNTon 0 04-20-2022 Erythrocyte distribution width (RBC) [Ratio] 12.4 % Normal 11.5-15.0 [facility] Comment on above: Performed By: #### 5 7416, 50252 #### [facility] [address] Hematocrit (Bld) [Volume fraction] 41.6 % Normal 36.0-45.0 The [facility] [place] Comment on above: Performed By: #### 5 6506, 37039 #### [facility] [address] Hemoglobin (Bld) [Mass/Vol] 13.7 g/dL Normal 12.0-15.0 The [facility] [place] Comment on above: Performed By: #### 5 6506, 29659 #### [facility] [address] [facility] [place] [address], [facility] MCH (RBC) [Entitic mass] 31.4 pg Normal 27.0-33.0 The [facility] [place] Comment on above: Performed By: #### 5 650, 40420 #### [facility] [address] [place] [id number], [facility] MCHC (RBC) [Mass/Vol] 32.9 g/dL Normal 32.0-35.0 The [facility] [place] Comment on above: Performed By: #### 5 6505, 17714 #### [facility] [address] [place] [address], [facility] MCV (RBC) [Entitic vol] 95.2 fL Normal 82.0-98.0 The [facility] [place] Comment on above: Performed By: #### 5 6505, 90599 #### [facility] [address] [facility] Nucleated RBC/100 WBC (Bld) [Ratio] 0 % Normal 0-0 The [facility] [place] Comment on above: Performed By: #### 5 650, 92621 #### [facility] [address] [place] [address], [facility] PLAT CNT 248 10*3/uL Normal 150-400 [facility] Comment on above: Performed By: #### 5 650, 28593 #### [facility] [address] [place] [address], [facility] RBC (Bld) [#/Vol] 4.37 10*6/uL Normal 3.80-5.00 [facility] Comment on above: Performed By: #### 5 650, 59104 #### [facility] [address] [place] [address], [facility] WBC (Bld) [#/Vol] 5.54 10*3/uL Normal 4.00-10.60 [facility] Comment on above: Performed By: #### 5 6506, 58218 #### [address] CERVICAL SPINE 4 OR 5 VIEWSo n 04-20-2022 CERVICAL SPINE 4 OR 5 VIEWS [facility] [place] Department of Radiology [address] [place] [phone] ===== Patient Name: LOBO MURDOCK : 1945 Sex: F Age: Race: White Pt. Location: [facility] Patient Status: O Ordered Date: 04/20/2022 10:50:00 AM Completed Date: 04/20/2022 11:42 AM Requesting Provider: MICHAEL HAHN Attending Provider: ARIADNA NOLAN Report Copy To: Signs & Symptoms: M54.2 Cervicalgia I10 History: [place] Comments: Views (X-RAY, CERVICAL SPINE): AP, Lateral, [...] C3 Electronically signed: Christian Upton. Transcribed by: [email or web address], User Resident: Electronically Signed by: CHRISTIAN UPTON @ 04/20/2022 02:33 PM Normal [facility] Comment on above: Order Comment: Views (X-RAY, CERVICAL SPINE): AP, Lateral, Odontoid, Flexion, Extension COMP METABOLIC PANELon 04-20 Albumin [Mass/Vol] 4.1 g/dL Normal 3.5-5.7 [facility] Comment on above: Performed By: #### 3 5515, 15326, 11959 #### [facility] [address] [place] [address], [facility] ALKALINE PHOSPH 63 IU/L Normal 34-104 [facility] Comment on above: Performed By: #### 3 5515, 31670, 66746 #### [facility] [address] [place] [address], [facility] ALT [Catalytic activity/Vol] 15 U/L Normal 7-52 The [facility] [place] Comment on above: Performed By: #### 3 5515, 35456, 87034 #### [facility] [address] [place] [address], [facility] AST [Catalytic activity/Vol] 22 U/L Normal 13-39 The [facility] [place] Comment on above: Performed By: #### 3 5515, 12725, 89140 #### [facility] [address] [place] [address], [facility] Bilirubin [Mass/Vol] 0.5 mg/dL Normal 0.3-1.0 [facility] Comment on above: Performed By: #### 3 5515, 55601, 12906 #### [facility] [address] [place] [address], [facility] Calcium [Mass/Vol] 10.2 mg/dL Normal 8.6-10.3 [facility] Comment on above: Performed By: #### 3 5515, 12648, 08073 #### [facility] [address] [place] [address], [place] Chloride [Moles/Vol] 105 mmol/L Normal 98-107 The [facility] [place] Comment on above: Performed By: #### 3 5515, 35114, 58611 #### [facility] [address] [place] [address], [place] CO2 [Moles/Vol] 25 mmol/L Normal 21-31 [facility] Comment on above: Performed By: #### 3 5515, 28749, 60718 #### [facility] [address] [place] [address], [facility] Creatinine [Mass/Vol] 0.95 mg/dL Normal 0.60-1.20 [facility] [place] Comment on above: Performed By: #### 3 5515, 85417, 83273 #### [facility] [address] [place] [id number], [facility] GFR/1.73 sq M.predicted among non-blacks MDRD (S/P/Bld) [Vol rate/Area] mL/min/{1.73_m2} Normal >60 The [facility] [place] Comment on above: Result Comment: The [facility] [place]'s estimated glomerular filtration rate (eGFR) will no [...] of individuals. Performed By: #### 3 5515, 86833, 36112 #### [facility] [address] [place] [address], [place] Glucose [Mass/Vol] 88 mg/dL Normal 70-[address] [facility] Comment on above: Performed By: #### 3 5515, 02890, 39805 #### [facility] [address] [place] [address], [place] Potassium [Moles/Vol] 4.5 mmol/L Normal 3.5-5.1 The [facility] [place] Comment on above: Performed By: #### 3 5515, 47298, 68005 #### [facility] [address] [place] [address], [place] Protein [Mass/Vol] 6.8 g/dL Normal 6.0-8.[address] [facility] Comment on above: Performed By: #### 3 5515, 26758, 16903 #### [facility] [address] [place] [address], [place] Sodium [Moles/Vol] 138 mmol/L Normal 136-[address] [facility] Comment on above: Performed By: #### 3 5515, 45437, 88616 #### [facility] [address] [place] [address], [place] Urea nitrogen [Mass/Vol] 29 mg/dL High 7-25 The [facility] [place] Comment on above: Performed By: #### 3 5515, 15791, 01156 #### [facility] [address] [place] [address], [place] CYCLIC CITRULLINATED PEPTIDE [place] [id number] 04-20-2022 CYCLIC CIT PEP 2 Units Normal 0-19 The [facility] Comment on above: Result Comment: INTE [...] be monitored and testing repeated. Performed By: [employer] [address] [place] [address] [employer]: Brett Tamez MD, PhD FERRITINon 04-20-2022 Ferritin [Mass/Vol] 43 ng/mL Normal 11-307 The [facility] [place] Comment on above: Performed By: #### 3 5515, 26203, 53216 #### [address] HAND LEFT 3 VWSon 04-20-2022 HAND LEFT 3 VWS [facility] [place] Department of Radiology [address] [place] [phone] ===== Patient Name: LOBO MURDOCK : 1945 Sex: F Age: Race: White Pt. Location: [facility] Patient Status: O Ordered Date: 04/20/2022 10:50:00 AM Completed Date: 04/20/2022 11:42 AM Requesting Provider: MICHAEL HAHN Attending Provider: ARIADNA NOLAN Report Copy To: Signs & Symptoms: M79.641 Pain in right hand I10 History: [place] Comments: Evaluate Exam: HAND LEFT 3 VWS ===== HAND LEFT 3 [facility] 04/20/2022 11:42 AM CLINICAL INDICATIONS: M79.641 Pain [...] report. Electronically signed: Chelita Lazcano. Transcribed by: [email or web address], User Resident: NIRMALA MONGE Electronically Signed by: CHELITA LAZCANO @ 04/20/2022 01:29 PM I personally read this/these film(s) with this resident Normal The [facility] [place] Comment on above: Order Comment: Evalu ate HAND RIGHT 3 [facility] 2 HAND RIGHT 3 [facility] Department of Radiology [address] [place] [phone] ===== Patient Name: LOBO MURDOCK : [...] report. Electronically signed: Chelita Lazcano. Transcribed by: [email or web address], User Resident: NIRMALA MONGE Electronically Signed by: CHELITA LAZCANO @ 04/20/2022 01:43 PM I personally read this/these film(s) with this resident Normal The [facility] [place] Comment on above: Order Comment: Evalu ate RHEUMATOID FACTOR SERUMon RA <20 Normal 0-20 The [facility] [place] Comment on above: Performed By: #### 6 1405, 85087 #### [facility] [address] [place] [address], [facility] SEDIMENTATION RATEon 022 SED RATE 38 mm/hr High 0-20 [facility] Comment on above: Performed By: #### 5 6506, 77472 ####[facility] [place] [address], [facility] TIBC- INCLUDES IRONon 2021 FE SATURATION 30 % Normal 20-50 [facility] Comment on above: Performed By: #### 3 5515, 89027, 09150 #### [facility] [address] [place] [address], [facility] Iron [Mass/Vol] 115 ug/dL Normal 50-212 [facility] Comment on above: Performed By: #### 3 5515, 14361, 31274 #### [facility] [address] [place] [address], [facility] TIBC 378 mcg/dL Normal 250-450 The [facility] [place] Comment on above: Performed By: #### 3 5515, 24113, 90239 #### [facility] [address] [place] [address], [facility] UIBC 263 mcg/dL Normal 155-355 The [facility] [place] Comment on above: Performed By: #### 3 5515, 56130, 62421 #### [facility] [address] [place] [address], [facility] CALCIUMon 04-09-2022 Calcium [Mass/Vol] 9.6 mg/dL Normal 8.5-10.1 [facility] Comment on above: Performed By: #### VALERIO MADRIGAL #### [facility] [address] [place] [address] [address] Dang Grimm CREATININEon 04-09-2022 Creatinine [Mass/Vol] 1.07 mg/dL Critically high 0.55-1.02 [facility] Comment on above: Performed By: #### VALERIO MADRIGAL #### [facility] [address] [place], [place] [address] Dr. Dang Grimm EGFR-AF ARGENTINE >60 Normal >=60 [facility] Comment on above: Performed By: #### C VALERIO ADAMS #### [facility] [address] [place], [place] [address] Dr. Dang Grimm EGFR-NON AF ARGENTINE 50 mL/min/1.73m2 Critically low >=60 [facility] Comment on above: Performed By: #### VALERIO MADRIGAL #### [facility] [address] [place] [address] Dr. Dang Grimm Vital Signs Date Time Vital Sign Value Performing Clinician Facility 10-02-2023 09:55-0500 Diastolic blood pressure 67 mm[Hg] MD Patricia Stanford Work Phone: [facility] 10-02-2023 09:55-0500 Heart rate 80 /min MD Patricia Stanford Work Phone: [facility] 10-02-2023 09:55-0500 Respiratory rate 16 /min MD Patricia Stanford Work Phone: [facility] 10-02-2023 09:55-0500 SaO2% (BldA) [Mass fraction] 99 % MD Patricia Stanford Work Phone: [facility] 10-02-2023 09:55-0500 Systolic blood pressure 108 mm[Hg] MD Patricia Stanford Work Phone: [facility] 10-02-2023 07:07-0500 Body height 160.02 cm MD Patricia Stanford Work Phone: [facility] 10-02-2023 07:07-0500 Body weight 56.69 kg MD Patricia Stanford Work Phone: [facility] 08-30-2023 10:30-0500 Body height 157.48 cm Patricia Stanford Other [facility] 08-30-2023 10:30-0500 Body mass index (BMI) [Ratio] 21.73 kg/m2 Patricia Stanford Other [facility] [employer] Other 08-30-2023 10:30-0500 Body weight 53.89 kg Patricia Stanford Other [facility] [employer] Other 08-30-2023 10:30-0500 Body weight 53.88 kg MD Patricia Stanford Work Phone: [facility] 08-30-2023 10:30-0500 Diastolic blood pressure 74 mm[Hg] Patricia Stanford Other [facility] 08-30-2023 10:30-0500 Systolic blood pressure 122 mm[Hg] Patricia Stanford Other [facility] 08-21-2023 13:45-0500 Body height 157.48 cm Imad Asaad Other [facility] 08-21-2023 13:45-0500 Body mass index (BMI) [Ratio] 21.58 kg/m2 Imad Asaad Other [facility] [employer] Other 08-21-2023 13:45-0500 Body weight 53.52 kg Imad Asaad Other [facility] 07-15-2023 11:30-0500 Body height 157.48 cm Patricia Stanford Other [facility] 07-15-2023 11:30-0500 Body mass index (BMI) [Ratio] 21.73 kg/m2 Patricia Stanford Other [facility] [employer] Other 07-15-2023 11:30-0500 Body weight 53.89 kg Patricia Stanford Other [facility] [employer] Other 07-15-2023 11:30-0500 Body weight 53.88 kg MD Patricia Stanford Work Phone: [facility] 07-15-2023 11:30-0500 Diastolic blood pressure 78 mm[Hg] Patricia Stanford Other [facility] 07-15-2023 11:30-0500 Systolic blood pressure 148 mm[Hg] Patricia Stanford Other [facility] 07-06-2023 09:20-0500 Body height 157.48 cm MD Patricia Stanford Work Phone: [facility] 07-06-2023 09:20-0500 Body weight 55.51 kg MD Patricia Stanford Work Phone: [facility] Encounters Encounter Date Encounter Type Care Provider Facility Start: 10-14-2023 End: 10-15-2023 ambulatory Ara Maire MD Facility:[facility] Start: 10-04-2023 End: 10-04-2023 ambulatory Imad Asaad Other [facility] Other Start: 10-04-2023 Telephone encounter Imad Asaad [facility] Start: 10-02-2023 Non-patient / Non-visit MD Marlys Stanford Work Phone: [facility] Work Phone: Start: 10-02-2023 End: 10-02-2023 ambulatory Patricia Stanford Facility:[facility] Start: 10-02-2023 End: 10-02-2023 Admission to same day surgery center MD Patricia Stanford Work Phone: [facility] Work Phone: Start: 10-02-2023 End: 10-02-2023 ambulatory MD Patricia Stanford Work Phone: [facility] Work Phone: Start: 09-23-2023 End: 09-23-2023 ambulatory Patricia Stanford Other [facility] Other Start: 09-23-2023 Telephone encounter Patricia Stanford [facility] Start: 09-09-2023 End: 09-09-2023 ambulatory CARI Keith APLING Not Available Start: 09-04-2023 End: 09-04-2023 ambulatory CARI Keith APLING Not Available Start: 09-03-2023 End: 09-03-2023 ambulatory Patricia Stanford Other [facility] Other Start: 09-03-2023 Telephone encounter Patricia Stanford [facility] Start: 08-30-2023 End: 08-30-2023 ambulatory Patricia Stanford Other [facility] Other Start: 08-30-2023 Office outpatient vi sit 15 minutes Patricia Stanford [facility] Start: 08-30-2023 End: 08-30-2023 Patient encounter procedure MD Patricia Stanford Work Phone: [facility]- Start: 08-23-2023 End: 08-23-2023 ambulatory Patricia Stanford Other [facility] Other Start: 08-23-2023 Telephone encounter Patricia Stanford [facility] Start: 08-21-2023 End: 08-21-2023 ambulatory Imad Asaad Other [facility] Other Start: 08-21-2023 Office outpatient ne w 45 minutes Imad Asaad [facility] Start: 08-21-2023 End: 08-21-2023 Patient encounter procedure MD Patricia Stanford Work Phone: [facility] Work Phone: Start: 07-15-2023 End: 07-15-2023 ambulatory Patricia Stanford Other [facility] Other Start: 07-15-2023 Office outpatient vi sit 15 minutes Patricia Stanford [facility] Start: 07-15-2023 Telephone encounter Patricia Stanford [facility] Start: 07-15-2023 End: 07-15-2023 Patient encounter procedure MD Patricia Stanford Work Phone: [facility] Work Phone: Start: 07-06-2023 End: 07-06-2023 Patient encounter procedure MD Patricia Stanford Work Phone: [facility] Luis Alfredo Work Phone: Start: 05-06-2023 End: 05-07-2023 ambulatory Ara Maier MD Facility:[facility] Start: 04-22-2023 End: 04-23-2023 ambulatory Ara Maier MD Facility:[facility] Start: 10-03-2022 End: 10-05-[address] PATRICIA STANFORD Facility: Start: 09-27-2022 End: 09-28-[address] MASSIMO MATTHEWS . Facility: Start: 09-11-2022 End: 09-11-[address] MASSIMO MATTHEWS . Facility:[facility] Start: 09-07-2022 End: 10-17-[address] MASSIMO MATTHEWS . Facility:[facility] Start: 09-04-2022 End: 09-05-[address] MASSIMO MATTHEWS . Facility:[facility] Start: 07-26-2022 Encounter for preprocedural laboratory examination DR MASSIMO MATTHEWS . [facility] Start: 07-24-2022 End: 07-24-2022 [...] Start: 04-20-2022 End: 04-21-2022 ambulatory ARIADNA NOLAN Facility:[facility] Start: 04-09-2022 End: 04-10-[address] PATRICIA STANFORD Facility:[facility] Start: 02-27-2022 End: 02-28-2022 ambulatory DEFAULT PHYSICIAN Facility:[facility] Start: 02-22-2022 End: 02-23-[address] MASSIMO MATTHEWS . Facility:[facility] Start: 12-06-2021 ambulatory MICHELE SALDAÑA . Facility:[facility] Start: 11-30-2021 End: 12-01-[address] MASSIMO MATTHEWS . Facility:[facility] Start: 10-25-2020 Pre-procedure evaluation check Patricia Stanford Other [facility] Other Procedures Date Procedure Procedure Detail Performing Clinician Start: 10-02-2023 Esophagogastroduodenoscopy MD Patricia fox Work Phone: Start: 07-10-2017 Screening mammography Patricia Stanford Other Start: 07-19-2016 General examination of patient Patricia padilla Other Plan of Treatment Date Care Activity Detail Author Start: 10-02-2023 [facility] Immunizations Immunization Date Immunization Notes Care Provider Fa cility 05-17-2022 zoster vaccine, live Patricia Stanford Other [facility] 04-23-2022 influenza virus vaccine, split virus (incl. purified surface antigen) Patricia Stanford Other [facility] Other 04-23-2022 influenza virus vaccine, unspecified formulation MD Patricia Stanford Work Phone: [facility] 04-23-2022 pneumococcal polysaccharide vaccine, 23 valent Patricia Stanford Other [facility] 04-23-2022 tetanus toxoid, adsorbed Patricia Stanford Other [facility] 05-25-2021 influenza virus vaccine, split virus (incl. purified surface antigen) Patricia Stanford Other [facility] Other 05-25-2021 influenza virus vaccine, unspecified formulation MD Patricia Stanford Work Phone: [facility] 10-18-2020 COVID-19 Vaccine Moderna - Documentation Purposes Only Patricia Stanford Other [facility] 09-19-2020 COVID-19 Vaccine Moderna - Documentation Purposes Only Patricia Stanford Other [facility] 04-16-2020 influenza virus vaccine, split virus (incl. purified surface antigen) Patricia Stanford Other [facility] [employer] Other 04-16-2020 influenza virus vaccine, unspecified formulation MD Patricia Stanford Work Phone: [facility] 05-12-2019 influenza virus vaccine, split virus (incl. purified surface antigen) Patricia Stanford Other [facility] [employer] Other 05-12-2019 influenza virus vaccine, unspecified formulation MD Patricia Stanford Work Phone: [facility] 04-18-2018 influenza virus vaccine, split virus (incl. purified surface antigen) Patricia Stanford Other [facility] [employer] Other 04-18-2018 influenza virus vaccine, unspecified formulation MD Patricia Stanford Work Phone: [facility] 07-10-2017 pneumococcal conjuga te vaccine, 13 valent Patricia Stanford Other [facility] 04-18-2017 influenza virus vaccine, split virus (incl. purified surface antigen) Patricia Stanford Other [facility] [employer] Other 04-18-2017 influenza virus vaccine, unspecified formulation MD Patricia Stanford Work Phone: [facility] 05-09-2016 influenza virus vaccine, split virus (incl. purified surface antigen) Patricia Stanford Other [facility] [employer] Other 05-09-2016 influenza virus vaccine, unspecified formulation MD Patricia Stanford Work Phone: [facility] 05-27-2013 tetanus and diphther ia toxoids, adsorbed, preservative free, for adult use (5 Lf of tetanus toxoid and 2 Lf of diphtheria toxoid) Patricia Stanford Other [facility] 12-24-2011 pneumococcal polysaccharide vaccine, 23 valent Patricia Abdoulaye Other [facility] Payers Date Payer Category Payer Medicare 2022 Unknown 1959 Medicare [id number] 1959 Unknown [id number] 1945 Unknown [id number] 2.16.8 40.1.664995.3.579.2.647 1945 Unknown [id number] 2.16.8 40.1.688427.3.579.2.647 1945 Unknown [id number] 2.16.84 0.1.684462.3.579.2.593 1945 Unknown [id number] 2.16.84 0.1.300643.3.579.2.593 1946 Unknown [id number] 2.16.84 0.1.582135.3.579.2.593 1945 Unknown [id number] 2.16.84 0.1.843211.3.579.2.593 1946 Unknown [id number] 2.16.84 0.1.930913.3.579.2.593 1946 Unknown [id number] 2.16.84 0.1.068235.3.579.2.593 1946 Unknown [id number] 2.16.84 0.1.829597.3.579.2.593 1946 Unknown [id number] 2.16.84 0.1.033713.3.579.2.593 1946 Unknown [id number] 2.16.84 0.1.392264.3.579.2.593 1946 Unknown [id number] 2.16.84 0.1.375563.3.579.2.593 1946 Unknown [id number] 2.16.84 0.1.703144.3.579.2.593 1945 Unknown [id number] 2.16.84 0.1.754210.3.579.2.593 1946 Unknown [id number] 2.16.84 0.1.815116.3.579.2.593 1946 Unknown [id number] 2.16.84 0.1.223637.3.579.2.593 1946 Unknown [id number] 2.16.84 0.1.246278.3.579.2.1259 1945 Unknown [id number] 2.16.84 0.1.133718.3.579.2.1259 1946 Unknown [id number] 2.16. 840.1.357329.3.579.2.196 1945 Unknown [id number] 2.16. 840.1.461421.3.579.2.196 1945 Unknown [id number] 2.16. 840.1.710775.3.579.2.196 Medicare Medicare Outpatient [id number] 9A [id number] Social History Date Type Detail Facility Unknown if ever smoked [facility] Other Sex Assigned At Sex Assigned At Bir th [facility] Other Start: 10-02-2023 Tobacco smoking status NHIS Never smoked tobacco (finding) [facility] Start: 1945 Sex Assigned At Female F [facility] Goals Date Patient Goal Desired Activity /State Clinical Notes 11-30-2021 to 10-02-2023 Note Date & Type Note Facility 10-02-2023 Procedure note [facility] 08-30-2023 Evaluation note Encounter Date Diagnosis Assessment [...] try OTC ones in meantime. Referral placed. [facility] Other 01-10-2024 Evaluation note* Encounter Date Diagnosis Assessment Notes Treatment Notes Treatment Clinical Notes Aug, GERD (gastroesophageal reflux disease) (ICD-10 - K21.9) Aug, Chronic diarrhea (ICD-10 - K52.9) Patient reports that her last colonoscopy was at the [facility] about 11 years ago and that she can not remember who preformed the procedure Aug, Abdominal pain (ICD-10 - R10.9) Aug, Weight loss, unintentional (ICD-10 - R63.4) Aug, Change in bowel habits (ICD-10 - R19.4) Patinet is advised to have a colonoscopy ordered, scheduled and prep instructions given today Risks and benefits of procedure explained to patient; patient verbalizes understanding. [facility] Other 12-04-2023 Evaluation note* Encounter Date Diagnosis [...] (ICD-10 - M81.0) Due for Dexa 08/2023 [facility] Other 02-16-2023 NoteCONSULTATION CONSULTATION DATE: 09/27/2022 HISTORY OF PRESENT ILLNESS: This is a 76-year-old female who returns to the clinic status post LES on 09/11/2022. The patient states she was afforded between 50-60% relief. Depending on her physical activity, determines her level of comfort. 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 and lifting greatly aggravate her [...] Patient is in agreement with this plan.[id number] NoteCONSULTATION CONSULTATION DATE: 09/04/2022 HISTORY OF PRESENT [...] patient understands and would like to proceed.[facility] [id number] NoteCONSULTATION CONSULTATION DATE: 07/11/2022 HISTORY OF PRESENT [...] followed up in the clinic post procedure.[facility] [id number] NoteCONSULTATION PROCEDURE DATE: 07/11/2022 PREOPERATIVE DIAGNOSIS: Bilateral [...] will be followed up in the clinic.[facility] 06-06-2022 NoteCONSULTATION CONSULTATION DATE: 06/06/2022 HISTORY [...] pain returning. 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 The patient has not seen a house mother in the past. REVIEW OF SYSTEMS, PAST [...] mg q.h.s. A referral to rheumatology near [place] will be sent on her behalf and I highly encouraged her to seek consultation, particularly since she has a familial history of autoimmune diseases. The patient agrees with the plan of care and will be followed up in the office in three months' time. [facility] Signed and Approved by: MICHELE SALDAÑA [...] will be followed up in the office. 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 Lying down and using heat decrease her pain. Prior to the procedure, she was in a state of acute pain and was placed on a short term course of [place] 5/325 b.i.d. p.r.n. Patient states she only [...] of care and would like to proceed. [facility] Signed and Approved by: MICHELE SALDAÑA . 12/06/2021 16:15:00[facility] noteNo InformationN[facility] Other Evaluation noteNo assessment information available [facility] Work Phone: History and physical note Author Sunny Torres [facility] October 02, 2023 8:54am Note Date/Time October 02, 2023 8:54am [facility] [address] [place] [address] Gastroenterology H&P Signed Patient: Lobo Murdock MR#: [id number] : 1945 Acct:[id number] Age/Sex: 78 / F Adm Date: 4 Loc: Room: Type: [facility] Attending Dr: Sunny Torres MD Copies to: [...] <Electronically signed by Sunny Torres MD> 10/02/23 08 [facility] Work Phone: History general Narrative - [...] shoulder pain 1982 Hospitalization History migraines 1992 [facility] Other Hospital Discharge instructions Additional Instructions DISCHARGE [...] up in the office - Office number [phone]. [facility] Work Phone: Summary Purpose Family [...] 1 Chronic diarrhea (K5 2.9) [facility]erral [facility] Referring Provider First Name Patricia Referring Provider Last Name Abdoulaye Referring Provider Specialty [facility] Referred Organization [facility] Referred Address [address],[address] Referred Provider Specialty Gastroentero logy Referral Priority Routine Reason *FU 09/06 R foot p ain Diagnosis 1 Pain of left great t oe (M79.675) Referral Organization [facility] Re.Mu [facility] Referring Provider First Name Patricia Referring Provider Last Name Abdoulaye Referring Provider Specialty [facility] Referred Organization [facility] Referred Provider Odin Chong Referred Address [address], [place],[address] Referred Provider Specialty Podiatry - S urgical [...] and content) DATE CREATED AUTHOR 05/09/2022 [facility] DATE CREATED AUTHOR AUTHOR'S ORGANIZ ATION 11/17/2022 [facility] DATE CREATED AUTHOR AUTHOR'S ORGANIZ ATION 09/09/2023 [facility] EPIC DATE CREATED AUTHOR AUTHOR'S ORGANIZ ATION 10/09/2023 [facility] DATE CREATED AUTHOR AUTHOR'S ORGANIZ ATION 10/18/2023 [facility] REASON FOR VISIT (unrecogniz ed section [...] BE BASED ON THE PRIMARY CLINICAL RECORDS. [facility] [employer] [facility]. provides no warranty or guarantee of the accuracy or completeness of information in this document.
== END 2023-11-13 09:26 | disposition home or self-care (01) ==
LOC: PM 09:25
PROVIDERS: PCP Family Medicine; Visit Provider Nurse Practitioner
DX: M47.816 Spondylosis without myelopathy or radiculopathy, lumbar region (principal); M53.3 Sacrococcygeal disorders, not elsewhere classified; M62.838 Other muscle spasm; Z79.891 Long term (current) use of opiate analgesic
CPT/HCPCS: G0463

== ENCOUNTER 2023-11-21 12:29 | Outpatient (OUT) | payer MEDICARE, SELFPAY ==
--- NOTE | 2023-11-21 12:36 | MR_ITS ---
[place] [id number] Patient Name: LOBO MURDOCK MRN: [id number] date: 1945 Sex: F Assigned Patient Location: MRI Current Patient Location: MRI Accession/Order Number: [id number] Exam Date: 11/21/2023 13:09 Report Date: 11/21/2023 16:07 At the request of: VERONICA CARCAMO Procedure: MR lumbar spine wo con MRI lumbar spine without contrast, 11/21/2023. HISTORY: Low back pain. COMPARISON: None. TECHNIQUE: Multiplanar, multisequence MRI imaging of the lumbar spine without contrast. FINDINGS: There is grade 1 spondylolisthesis at L4-L5 measuring 7 mm. Chronic compression fracture at T11 with approximately 60% loss of vertebral body height. No acute compression fracture. L5-S1, severe degenerative disc disease. There is severe disc space narrowing and irregularity of the endplates. Mild facet arthropathy. No spinal canal stenosis. Disc space narrowing and osteophyte result in moderate bilateral neural foraminal narrowing. L4-L5, severe facet arthropathy. Severe degenerative disc disease. Grade 1 spondylolisthesis. Severe spinal canal stenosis. Severe left foraminal narrowing. Mild right foraminal narrowing. L3-L4, moderate degenerative disc disease. No spinal canal stenosis. No significant foraminal narrowing. L2-L3, moderate degenerative disc disease. No spinal stenosis. No foraminal narrowing. L1-L2, mild degenerative disc disease. No spinal stenosis or foraminal narrowing. No abnormal signal in the conus medullaris. No paraspinal mass. MR/MR lumbar spine wo con IMPRESSION: 1. At L4-L5, there is severe facet arthropathy and degenerative disc disease. There is grade 1 spondylolisthesis. Severe spinal canal stenosis. Severe left foraminal narrowing. 2. Severe degenerative disc disease at L5-S1. No spinal canal stenosis. Moderate bilateral foraminal narrowing. 3. Chronic compression fracture at T11. No acute compression fracture. Electronically authenticated by: WILFRID WERNER Date: 11/21/2023 16:07
== END 2023-11-21 12:30 | disposition home or self-care (01) ==
LOC: MRI 12:31
PROVIDERS: PCP Family Medicine; Visit Provider Orthopaedic Surgery Orthopaedic Surgery of the Spine
DX: M54.31 Sciatica, right side (principal); M51.36 Other intervertebral disc degeneration, lumbar region; M48.54XA Collapsed vertebra, not elsewhere classified, thoracic region, initial encounter for fracture
CPT/HCPCS: 72148

== ENCOUNTER 2023-11-25 08:13 | Day surgery (SDC) | payer MEDICARE, SELFPAY ==
[2023-11-11 09:47] VITALS: BP 145/79; PULSE 76; TEMP 36.2; O2SAT 98; BMI 24.3
[2023-11-25] VITALS (8 sets, daily range): BP systolic 98–127; BP diastolic 53–98; PULSE 85–96; TEMP 36.3–36.9; O2SAT 92–97; BMI 22.9
[2023-11-25 08:26] LABS: Basophils Absolute Auto 0.1 10^3/uL (0.0-0.1); Basophils Percent Auto 1.1 % (0.2-2.0); Eosinophils Absolute Auto 0.1 10^3/uL (0.0-0.7); Eosinophils Percent Auto 1.3 % (0.9-7.0); Hematocrit 39.5 % (36.0-48.0); Hemoglobin 12.7 g/dL (12.0-16.0); Immature Granulocytes Abs Auto 0.01 10^3/uL (0.00-0.03); Immature Granulocytes Pct Auto 0.2 % (0.0-0.5); Lymphocytes Absolute Auto 2.3 10^3/uL (1.2-3.8); Lymphocytes Percent Auto 42.1 % (20.5-60.0); Mean Corpuscular HGB Conc 32.2 g/dL (29.9-35.2); Mean Corpuscular Hemoglobin 32.2 pg (26.7-34.0); Mean Platelet Volume 9.4 fL (9.5-13.5); Monocytes Absolute Auto 0.6 10^3/uL (0.3-0.8); Monocytes Percent Auto 11.7 % (1.7-12.0); Neutrophils Absolute Auto 2.4 10^3/uL (1.4-6.5); Neutrophils Percent Auto 43.6 % (43.0-75.0); Platelet Count 241 10^3/uL (150-450); Red Blood Count 3.95 10^6/uL (4.20-5.40); Red Cell Distribution Width 13.8 % (11.0-15.0); White Blood Count 5.5 10^3/uL (4.0-11.0)
[2023-11-25 08:30] LABS: Glucometer 95 mg/dL (74-106)
[2023-11-25] MEDS: LACTATED RINGER'S SOLUTION 1,000 ML 50 ML IV (08:53)
[2023-11-25] MEDS: CEFAZOLIN SODIUM/DEXTROSE,ISO 2 GM/50 ML PIGGYBACK IV (09:50)
--- NOTE | 2023-11-25 10:01 | PC.NURSE ---
927 PATIENT WAS POSITIONED ON HER RIGHT SIDE 928 TIME OUT PERFORMED AND 20 MICS OF PRESIDEX WAS ADMINISTERED VIA IV BY SLIDE DEVELOPER 929 SLIDE DEVELOPER WAS LOOKING FOR SITE WITH ULTRA SOUND POPLITEAL BLOCK STARTED AT 930 WITH SOME LIDOCAINE TO NUMB AREA INJECTED WITH ROPIVOCAINE AND ENDED AT 936. PATIENT TOLERATED WELL. 936 ULTRASOUND WAS BEING USED FOR LOCATION OF SPHENOUS BLOCK BY SLIDE DEVELOPER , AREA CLEANSED AND INJECTED WITH LIDOCAINE TO NUMB AREA PROCEDURE STARTED AT 936 WITH ROPIVOCAINE INJECTED INTO AREA AND WAS COMPLETED AT 939. PATIENT TOLERATED WELL.
--- NOTE | 2023-11-25 10:45 | PM.ORONB ---
Brief Operative Note Date of procedure: 11/25/23 Pre-op diagnosis general: left hallux valgus and tailor's bunion, osteoporosis Post-op diagnosis: same as pre-op Procedure: PROCEDURE(S) PERFORMED: 1. First metatarsal phalangeal joint fusion 2. tailors bunionectomy *All procedures were performed on the left foot INDICATION FOR PROCEDURE: patient is a 78-year-old female whose had worsening pain and deformity associated with her left forefoot. She's had difficulty finding shoes and pain did not respond to nonsurgical care she wished to undergo surgical reconstruction we discussed the potential risks and benefits associated with modified Elizondo bunionectomy versus 1st MPJ fusion. I also discussed the patient does have diagnosed osteoporosis which is being managed with Prolia. After long discussion patient wished to proceed with 1st MPJ fusion and tailor's bunionectomy. All questions were answered to her satisfaction and consent was obtained INTRAOPERATIVE FINDINGS: great toe is in a valgus position with prominence of the medial eminence. Mild to moderate degree of arthritic changes to the cartilage of the 1st metatarsophalangeal joint. Bone quality was poor and consistent with osteoporosis. Bony prominence of the 5th metatarsal head predominantly dorsal laterally. PROCEDURE IN DETAIL: Patient was identified in pre op and consent was reviewed. Correct side and site were identified and marked. Pre-op antibiotics were started. Patient was brought to OR suite and place on table in a supine position. General anesthesia was administered. A tourniquet was applied. Operative extremity was prepped and draped in usual sterile fashion. Formal time-out was performed and the foot/ankle were exsanguinated and tourniquet inflated. Incision created over dorsal aspect of the 1st MPJ. Bleeders coagulated. EHL protected throughout the procedure. Capsulotomy performed and McGlammry elevator inserted into 1st MPJ. Guide Pin place in 1st metatarsal head. Conical reamers used on 1st metatarsal head to remove cartilage and subchondral bone. Guide pin removed. Conical reamers used on proximal phalanx in a similar manner. 2.0 mm drill used to on each side of the joint. The site was irrigated. 1 cc of bone allograft was then packed into the fusion site. A stab incision was placed on the medial aspect of the hallux and blunt dissection down to the proximal phalanx base was performed. A guide wire was then used to pin the MPJ in a rectus position under fluoroscopic guidance. Position was checked both on the table and under fluoroscopy. then an additional guidewire was placed from the lateral base of the proximal phalanx crossing the 1st metatarsophalangeal joint. A saw was used to contour the dorsal aspect of the 1st metatarsal and proximal phalanx to accommodate plate fixation. A 3.[address] over the fusion site and temporarily fixed. Then corporate pilot holes were drilled for locking 3.5 mm screws which were measured and placed according to the manufactor's standard directions. Again position was checked under fluoroscopy as well as on the table. Temporary fixation was removed and additional screws were placed. A 3.5 mm cannulated headed screw was inserted over the previously placed guide wire accordingly from distal-lateral to proximal medial across the 1st MPJ. Again position of the great toe and hardware placement were checked on the table and under fluoroscopy. The surgical site was irrigated with copious amounts of sterile saline. The incision was then closed in layers. Incision was placed over the dorsal lateral aspect of the 5th metatarsal phalangeal joint. Combination sharp and blunt dissection gained access to the 5th MPJ and capsulotomy was performed. A sagittal saw was then used to remove bony prominence from the lateral aspect. a hand rasp was used to contour the 5th metatarsal head and the surgical site was irrigated with copious saline. The incision was then closed in layers The tourniquet was deflated and a prompt hyperemic response was noted. A dry sterile dressing consisting of Xeroform on the incisions followed by 4 x 4 gauze, ABDs, and Kerlix were applied. Multiple layers of cast padding were then applied to ensure all bony prominences were well-padded. A plaster posterior splint was then applied which was held in place by Zen wraps. Capillary refill time to all digits was evaluated and had appropriate response. POSTOPERATIVE PLAN: Discharge home under family's care Post op instructions provided verbally and written prescription(s) were placed in chart NWB operative foot/ankle x1 wk Follow-up in 1 week Implants: Medline plate/screws Isto sparc bone allograft Anesthesia: regional and General-LMA Surgeon: Odin Chong Board Operator: Coy Fofana Estimated blood loss (mL): 10 Pathology: none sent Condition: stable Disposition: PACU
--- NOTE | 2023-11-25 11:58 | FL_ITS ---
The [address] [address] Patient Name: LOBO MURDOCK MRN: [id number] date: 1945 Sex: F Assigned Patient Location: SURGOUT Current Patient Location: MRI Accession/Order Number: [id number] Exam Date: 11/25/2023 10:20 Report Date: 11/28/2023 07:45 At the request of: DANNY MEDINA Procedure: FL fluoroscopy <1hr NON-READ EXAM: FL fluoroscopy <1hr NON-READ HISTORY: TECHNIQUE: FINDINGS: Please see Operative Report. Electronically authenticated by: RADIOLOGIST NO Date: 11/28/2023 07:45
--- NOTE | 2023-11-25 12:03 | XR_ITS ---
The [address] [address] Patient Name: LOBO MURDOCK MRN: [id number] date: 1945 Sex: F Assigned Patient Location: [facility] Current Patient Location: Accession/Order Number: [id number] Exam Date: 11/25/2023 12:45 Report Date: 11/25/2023 15:28 At the request of: SULEIMAN MARR Procedure: XR foot LT min 3V PROCEDURE: XR foot LT min 3V COMPARISON: 09/10/2023 HISTORY: postop xr pacu FINDINGS: BONES:Interval reduction in hallux valgus and fusion of the first metatarsal-phalangeal joint with a dorsal plate and screws. No acute fracture, dislocation or mechanical failure SOFT TISSUES:Dorsal soft tissue swelling and subcutaneous emphysema EFFUSION:None visible. OTHER: Negative. XR/XR foot LT min 3V IMPRESSION: Postsurgical changes and fusion first metatarsal-phalangeal joint Electronically authenticated by: LEIF SALAZAR Date: 11/25/2023 15:28
[2023-11-25 12:22] LABS: Glucometer 113 mg/dL (74-106)
--- NOTE | 2023-11-25 12:50 | PC.NURSE ---
xray completed as ordered. patient tolerated it well
== END 2023-11-25 13:25 | disposition home or self-care (01) ==
PROVIDERS: PCP Family Medicine; Visit Provider Podiatrist Foot & Ankle Surgery
PROC: (CPT 28110; principal; 2023-11-25 09:25)
DX: M20.12 Hallux valgus (acquired), left foot (principal); M21.622 Bunionette of left foot; M81.0 Age-related osteoporosis without current pathological fracture; M19.072 Primary osteoarthritis, left ankle and foot; K44.9 Diaphragmatic hernia without obstruction or gangrene; K21.9 Gastro-esophageal reflux disease without esophagitis; R12 Heartburn; Z79.899 Other long term (current) drug therapy
CPT/HCPCS: 28110; 28750; 36415; 64445; 64450; 73630; 76000; 76942; 82948; 85025; C1713; J2704

== ENCOUNTER 2023-12-17 11:14 | Outpatient (OUT) | payer MEDICARE, SELFPAY ==
--- NOTE | 2023-12-17 | XR_ITS ---
The [address] [address] Patient Name: LOBO MURDOCK MRN: [id number] date: 1945 Sex: F Assigned Patient Location: Current Patient Location: Accession/Order Number: [id number] Exam Date: 12/17/2023 11:15 Report Date: 12/18/2023 06:50 At the request of: DANNY MEDINA Procedure: XR foot LT min 3V PROCEDURE: XR foot LT min 3V HISTORY: LEFT FOOT PAIN COMPARISON: XR foot left 11/25/2023 FINDINGS: BONES:Mechanical fusion of the first metatarsophalangeal joint via dorsal plate and screws; no appreciable hardware fracture loosening. No bone fracture dislocation. SOFT TISSUES:No visible soft tissue swelling. EFFUSION:None visible. OTHER: Negative. XR/XR foot LT min 3V IMPRESSION: 1. Osseous fusion of first metatarsophalangeal joint without evidence of hardware failure. Electronically authenticated by: IRINA VÁZQUEZ Date: 12/18/2023 06:50
--- OUTSIDE RECORDS SUMMARY | 2023-12-17 11:33 | XMS_ITS | CCD ---
Author Organization [facility] Care Team Providers Care Falafel Cart Cook Name Role Phone PHYSICIAN, DEFAULT Admitting Unavailable [...] [place], DR PATRICIA Crain Primary Care Unavailable BYRNO ., DR MASSIMO Cook Attending Unavailable ABDOULAYE, [...] of Onset Reaction(s) Facility (8 sources) Calcitonin ([place]) *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 Propensity to adverse reactions Comment:severe weakness [facility] Other Medications Current Medications Medication Drug Class(es) [...] Active Subcutaneous for 0 *Pick strength-form from [employer] for eRX* Aug, Active diclofenac sodium 50 [...] day for 0 days *Pick strength-form from [employer] for eRX* Oct, Active Multiple Vitamin (8 [...] Other aftercare (8 sources) 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; Translations: [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] Episodic Other connective [...] Test Name Value Interpretation Reference Range Facility [facility] 10-02-2023 L Specimen: [id number] Received: 10/02/23 Status: OJ Brice Num: [id number] Spec Type: Surgical Subm Dr: Sunny Torres MD Tissues: A GASTRIC FOR HP (GASTRIC BX R/O H.PYLORI) B Colon Biopsy (RANDOM COLON BX R/O MICROSCO) Procedures: HE/4, Gross/Micro L4/2, H PYLORI Age/ Patient Sex Location Account Attending Physician MaikelLobo 78/F [id number] Sunny Torres MD SPEC NUM: [id number] RECD: 10/02/23 STATUS: OJ BRICE NUM: [id number] TEO: 10/02/[address]: Sunny Torres MD ENTERED: 10/02/23 [facility] DR: SPEC TYPE: Surgical DEPT: S [...] name, date of and random colon Specimen: [id number] Received: 10/02/23 Status: OJ Brice Num: [id number] Spec Type: Surgical Subm Dr: Sunny Torres MD Tissues: A GASTRIC FOR HP (GASTRIC BX R/O H.PYLORI) B Colon Biopsy (RANDOM COLON BX R/O MICROSCO) Procedures: HE/4, Gross/Micro L4/2, H PYLORI Patient: MakielLobo [id number] (Continued) Specimen: [id number] Received: 10/02/23 (Continued) Gross Description (Continued) Signed (signature on file) Patito Grimm MD 10/03/23 1430 Specimen: [id number] Received: 10/02/23 Status: OJ Brice Num: [id number] Spec Type: Surgical Subm Dr: uSnny Torres MD Tissues: A GASTRIC FOR HP (GASTRIC BX R/O H.PYLORI) B Colon Biopsy (RANDOM COLON BX R/O MICROSCO) Procedures: HE/4, Gross/Micro L4/2, H PYLORI Patient: Lobo Murdock [id number] (Continued) Specimen: [id number] Received: 10/02/23 (Continued) Gross Description (Continued) biopsy are 2 galvan translucent soft tissue fragments, 0.3 and 0.6 cm in greatest dimensions. Entirely submitted in one cassette labeled B1. CPT Codes [id number] Specimen: [id number] Received: 10/02/23 Status: OJ Brice Num: [id number] Spec Type: Surgical Subm Dr: Sunny Torres MD Tissues: A GASTRIC FOR HP (GASTRIC BX R/O H.PYLORI) B Colon Biopsy (RANDOM COLON BX R/O MICROSCO) Procedures: HE/4, Gross/Micro L4/2, H PYLORI Patient: Lobo Murdock [id number] (Continued) Signed (signature on file) Patito Grimm MD 10/03/23 1430 [facility] CALCIUMon 10-03-2022 Calcium [Mass/Vol] 8.9 mg/dL Normal 8.5-10.1 [facility] Comment on above: Performed By: #### VALERIO MADRIGAL #### [facility] [address] [place] [address] Dr. Dang Grimm CREATININEon 10-03-2022 Creatinine [Mass/Vol] 1.03 mg/dL Critically high 0.55-1.02 The [facility] Comment on above: Performed By: #### VALERIO MADRIGAL #### [facility] [address] [place], [place] [address] Dr. Dang Grimm EGFR-AF SAUDI ARABIAN >60 Normal >=60 The [facility] Comment on above: Performed By: #### C ANGIE, [place] #### [facility] [address] [place], [place] [address] Dr. Dang Grimm EGFR-NON AF SAUDI ARABIAN 52 mL/min/1.73m2 Critically low >=60 The [facility] Comment on above: Performed By: #### C ANGIE, [place] #### [facility] [address] [place], [place] [address] Dr. Dang Grimm Covid-19 PCR (CVDTB)on SARS-CoV-2 (COVID-19) RNA GENARO+probe Ql (Unsp spec) Not detected Normal NOT DETECTED The [facility] Comment on above: Result Comment: This test is not yet approved or cleared by the [place] FDA. When there are no FDA-approved or cleared tests available, and other criteria are met, FDA can make tests available under an emergency access mechanism called an Emergency Use Authorization (EUA). The EUA for this test is supported by the [employer] Attorney of Health and Human Service's (HHS's) declaration [...] SARS-CoV-2. Performed By: #### C VDTBH #### [facility] [address] [place], [place] [address] Dr. Dang DUDLEYon 04-20-2022 OCTAVIA PATTERN SPECKLED Normal The [facility] Comment on above: Result Comment: The [...] authority. Performed By: #### 1 0196 #### [facility] [address] OCTAVIA SCREEN 1:40 Normal <1:40,1:40 The [facility] Comment on above: Result Comment: Test performed using MELCHOR IFA OCTAVIA Hep-2 Test, a pre-standardized assay designed for the qualitative and semi-quantitative detection of antinuclear antibodies. Performed By: #### 1 0196 #### [facility] [address] C REACTIVE PROTEINon 022 CRP [Mass/Vol] 2.5 mg/L Normal 0.0-7.0 [facility] Comment on above: Performed By: #### 6 1405, 42673 #### [facility] [address] CBC COMPLETE BLOOD COUNTon 0 04-20-2022 Erythrocyte distribution width (RBC) [Ratio] 12.4 % Normal 11.5-15.0 [facility] Comment on above: Performed By: #### 5 1086, 14473 #### [facility] [address] Hematocrit (Bld) [Volume fraction] 41.6 % Normal 36.0-45.0 [facility] Comment on above: Performed By: #### 5 6506, 13686 #### [facility] [address] Hemoglobin (Bld) [Mass/Vol] 13.7 g/dL Normal 12.0-15.0 [facility] Comment on above: Performed By: #### 5 6506, 06549 #### [facility] [address] [facility] [place] [address], [facility] MCH (RBC) [Entitic mass] 31.4 pg Normal 27.0-33.0 [facility] Comment on above: Performed By: #### 5 650, 46859 #### [facility] [address] [place] [id number], [facility] MCHC (RBC) [Mass/Vol] 32.9 g/dL Normal 32.0-35.0 [facility] Comment on above: Performed By: #### 5 6505, 75299 #### [facility] [address] [facility] [place] [address], [facility] MCV (RBC) [Entitic vol] 95.2 fL Normal 82.0-98.0 [facility] Comment on above: Performed By: #### 5 6505, 67246 #### [facility] [address] [facility]. [address] Nucleated RBC/100 WBC (Bld) [Ratio] 0 % Normal 0-0 [facility] Comment on above: Performed By: #### 5 650, 87034 #### [facility] [address] [facility] [place] [address], [facility] PLAT CNT 248 10*3/uL Normal 150-400 The [facility] Comment on above: Performed By: #### 5 650, 89699 #### [facility] [address] [facility] [place] [address], [facility] RBC (Bld) [#/Vol] 4.37 10*6/uL Normal 3.80-5.00 The [facility] Comment on above: Performed By: #### 5 650, 20483 #### [facility] [address] [place] [address], [facility] WBC (Bld) [#/Vol] 5.54 10*3/uL Normal 4.00-10.60 The [facility] Comment on above: Performed By: #### 5 6506, 26857 #### [address] CERVICAL SPINE 4 OR 5 VIEWSo n 04-20-2022 CERVICAL SPINE 4 OR 5 VIEWS [facility] Department of Radiology [address] [place] [id number] ===== Patient Name: LOBO MURDOCK : 1945 Sex: F Age: Race: White Pt. Location: [facility] Patient Status: O Ordered Date: 04/20/2022 10:50:00 [...] C3 Electronically signed: Christian Upton. Transcribed by: [email or web address], User Resident: Electronically Signed by: CHRISTIAN UPTON @ 04/20/2022 02:33 PM Normal [facility] Comment on above: Order Comment: Views (X-RAY, CERVICAL SPINE): AP, Lateral, Odontoid, Flexion, Extension COMP METABOLIC PANELon 04-20 Albumin [Mass/Vol] 4.1 g/dL Normal 3.5-5.7 [facility] Comment on above: Performed By: #### 3 5515, 65445, 08430 #### [facility] [address] [place] [address], [facility] ALKALINE PHOSPH 63 IU/L Normal 34-104 [facility] Comment on above: Performed By: #### 3 5515, 08242, 33331 #### [facility] [address] [place] [address], [facility] ALT [Catalytic activity/Vol] 15 U/L Normal 7-52 [facility] Comment on above: Performed By: #### 3 5515, 56355, 66226 #### [facility] [address] [place] [address], [facility] AST [Catalytic activity/Vol] 22 U/L Normal 13-39 [facility] Comment on above: Performed By: #### 3 5515, 00505, 06821 #### [facility] [address] [place] [address], [facility] Bilirubin [Mass/Vol] 0.5 mg/dL Normal 0.3-1.0 [facility] Comment on above: Performed By: #### 3 5515, 56910, 39958 #### [facility] [address] [place] [address], [facility] Calcium [Mass/Vol] 10.2 mg/dL Normal 8.6-10.3 [facility] Comment on above: Performed By: #### 3 5515, 00754, 85884 #### [facility] [address] [place] [address], [place] Chloride [Moles/Vol] 105 mmol/L Normal 98-107 [facility] Comment on above: Performed By: #### 3 5515, 22492, 08467 #### [facility] [address] [place] [address], [place] CO2 [Moles/Vol] 25 mmol/L Normal 21-31 [facility] Comment on above: Performed By: #### 3 5515, 32654, 98973 #### [facility] [address] [place] [address], [facility] Creatinine [Mass/Vol] 0.95 mg/dL Normal 0.60-1.20 [facility] Comment on above: Performed By: #### 3 5515, 43716, 83999 #### [facility] [address] [place] [id number], [facility] GFR/1.73 sq M.predicted among non-blacks MDRD (S/P/Bld) [Vol rate/Area] mL/min/{1.73_m2} Normal >60 The [facility] Comment on above: Result Comment: The [facility]'s estimated glomerular filtration rate (eGFR) [...] of individuals. Performed By: #### 3 5515, 40625, 04810 #### [facility] [address] [place] [address], [place] Glucose [Mass/Vol] 88 mg/dL Normal 70-100 The [facility] Comment on above: Performed By: #### 3 5515, 59499, 47401 #### [facility] [address] [place] [address], [place] Potassium [Moles/Vol] 4.5 mmol/L Normal 3.5-5.1 [facility] Comment on above: Performed By: #### 3 5515, 89489, 42479 #### [facility] [address] [place] [address], [place] Protein [Mass/Vol] 6.8 g/dL Normal 6.0-8.3 The [facility] Comment on above: Performed By: #### 3 5515, 53638, 10029 #### [facility] [address] [place] [address], [place] Sodium [Moles/Vol] 138 mmol/L Normal 136-145 The [facility] Comment on above: Performed By: #### 3 5515, 21632, 61495 #### [facility] [address] [place] [address], [place] Urea nitrogen [Mass/Vol] 29 mg/dL High 7-25 [facility] Comment on above: Performed By: #### 3 5515, 28646, 78429 #### [facility] [address] [place] [address], [place] CYCLIC CITRULLINATED PEPTIDE AB [id number] 04-20-2022 CYCLIC CIT PEP 2 Units Normal 0-19 The [facility] Comment on above: Result Comment: [...] be monitored and testing repeated. Performed By: [facility] [address] [place] [address] [employer]fdc Technical Architect: Brett Tamez MD, PhD FERRITINon 04-20-2022 Ferritin [Mass/Vol] 43 ng/mL Normal 11-307 [facility] Comment on above: Performed By: #### 3 5515, 06730, 40239 #### [address] HAND LEFT 3 VWSon 04-20-2022 HAND LEFT 3 VWS [facility] Department of Radiology [address] [place] [id number] ===== Patient Name: LOBO MURDOCK : 1945 Sex: F Age: Race: White Pt. Location: [facility] Patient Status: O Ordered Date: 04/20/2022 10:50:00 AM Completed Date: 04/20/2022 11:42 AM Requesting Provider: MICHAEL HAHN Attending Provider: ARIADNA NOLAN Report Copy To: Signs & Symptoms: M79.641 Pain in right hand I10 History: [place] Comments: Evaluate Exam: HAND LEFT 3 VWS ===== HAND LEFT 3 [facility] 04/20/2022 11:42 AM CLINICAL INDICATIONS: M79.641 [...] report. Electronically signed: Chelita Lazcano. Transcribed by: [email or web address], User Resident: NIRMALA MONGE Electronically Signed by: CHELITA LAZCANO @ 04/20/2022 01:29 PM I personally read this/these film(s) with this resident Normal The [facility] Comment on above: Order Comment: Evalu ate HAND RIGHT 3 [facility] 2 HAND RIGHT 3 [facility] Department of Radiology [address] [place] [id number] ===== Patient Name: LOBO MURDOCK : [...] report. Electronically signed: Chelita Lazcano. Transcribed by: [email or web address], User Resident: NIRMALA MONGE Electronically Signed by: CHELITA LAZCANO @ 04/20/2022 01:43 PM I personally read this/these film(s) with this resident Normal The [facility] Comment on above: Order Comment: Evalu ate RHEUMATOID FACTOR SERUMon RA <20 Normal 0-20 [facility] Comment on above: Performed By: #### 6 1405, 36420 #### [facility] [address] [place] [address], [facility] SEDIMENTATION RATEon 022 SED RATE 38 mm/hr High 0-20 [facility] Comment on above: Performed By: #### 5 6506, 23547 ####[facility] [place] [address], [facility] TIBC- INCLUDES IRONon 2021 FE SATURATION 30 % Normal 20-50 [facility] Comment on above: Performed By: #### 3 5515, 48026, 92220 #### [facility] [address] [place] [address], [facility] Iron [Mass/Vol] 115 ug/dL Normal 50-212 [facility] Comment on above: Performed By: #### 3 5515, 70842, 79629 #### [facility] [address] [place] [address], [facility] TIBC 378 mcg/dL Normal 250-450 [facility] Comment on above: Performed By: #### 3 5515, 87337, 35453 #### [facility] [address] [place] [address], [facility] UIBC 263 mcg/dL Normal 155-355 [facility] Comment on above: Performed By: #### 3 5515, 89957, 50968 #### [facility] [address] [place] [address], [facility] CALCIUMon 04-09-2022 Calcium [Mass/Vol] 9.6 mg/dL Normal 8.5-10.1 [facility] Comment on above: Performed By: #### VALERIO MADRIGAL #### [facility] [address] [place] [address] [address] Dang Grimm CREATININEon 04-09-2022 Creatinine [Mass/Vol] 1.07 mg/dL Critically high 0.55-1.02 [facility] Comment on above: Performed By: #### VALERIO MADRIGAL #### [facility] [address] [place], [place] [address] Dr. Dang Grimm EGFR-AF SAUDI ARABIAN >60 Normal >=60 [facility] Comment on above: Performed By: #### C VALERIO ADAMS #### [facility] [address] [place], [place] [address] Dr. Dang Grimm EGFR-NON AF SAUDI ARABIAN 50 mL/min/1.73m2 Critically low >=60 [facility] Comment on above: Performed By: #### VALERIO MADRIGAL #### [facility] [address] [place], [place] [address] Dr. Dang Grimm Vital Signs Date Time Vital Sign Value Performing Clinician Facility 10-02-2023 09:55-0500 Diastolic blood pressure 67 mm[Hg] MD Patricia Stanford Work Phone: [facility] 10-02-2023 09:55-0500 Heart rate 80 /min MD Patricia Stanford Work Phone: [facility] 10-02-2023 09:55-0500 Respiratory rate 16 /min MD Patricia Stanford Work Phone: [facility] 10-02-2023 09:55-0500 SaO2% (BldA) [Mass fraction] 99 % MD Patricia Stanford Work Phone: [facility] 10-02-2023 09:55-0500 Systolic blood pressure 108 mm[Hg] MD Patricia Stanford Work Phone: [facility] 10-02-2023 07:07-0500 Body height 160.02 cm MD Patricia Stanford Work Phone: [facility] 10-02-2023 07:07-0500 Body weight 56.69 kg MD Patricia Stanford Work Phone: [facility] 08-30-2023 10:30-0500 Body height 157.48 cm Patricia Stanford Other [facility] 08-30-2023 10:30-0500 Body mass index (BMI) [Ratio] 21.73 kg/m2 Patricia Stanford Other [facility] [employer] Other 08-30-2023 10:30-0500 Body weight 53.89 kg Patricia Stanford Other [facility] [employer] Other 08-30-2023 10:30-0500 Body weight 53.88 kg MD Patricia Stanford Work Phone: [facility] 08-30-2023 10:30-0500 Diastolic blood pressure 74 mm[Hg] Patricia Stanford Other [facility] 08-30-2023 10:30-0500 Systolic blood pressure 122 mm[Hg] Patricia Stanford Other [facility] 08-21-2023 13:45-0500 Body height 157.48 cm Imad Asaad Other [facility] 08-21-2023 13:45-0500 Body mass index (BMI) [Ratio] 21.58 kg/m2 Imad Asaad Other [facility] [employer] Other 08-21-2023 13:45-0500 Body weight 53.52 kg Imad Asaad Other [facility] 07-15-2023 11:30-0500 Body height 157.48 cm Patricia Stanford Other [facility] 07-15-2023 11:30-0500 Body mass index (BMI) [Ratio] 21.73 kg/m2 Patricia Stanford Other [facility] [employer] Other 07-15-2023 11:30-0500 Body weight 53.89 kg Patricia Stanford Other [facility] [employer] Other 07-15-2023 11:30-0500 Body weight 53.88 kg MD Patricia Stanford Work Phone: [facility] 07-15-2023 11:30-0500 Diastolic blood pressure 78 mm[Hg] Patricia Stanford Other [facility] 07-15-2023 11:30-0500 Systolic blood pressure 148 mm[Hg] Patricia Stanford Other [facility] 07-06-2023 09:20-0500 Body height 157.48 cm MD Patricia Stanford Work Phone: [facility] 07-06-2023 09:20-0500 Body weight 55.51 kg MD Patricia Stanford Work Phone: [facility] Encounters Encounter Date Encounter Type Care Provider Facility Start: 10-14-2023 End: 10-15-2023 ambulatory Ara Maier MD Facility:[facility] Start: 10-04-2023 End: 10-04-2023 ambulatory Imad Asaad Other [facility] Other Start: 10-04-2023 Telephone encounter Imad Asaad [facility] Start: 10-02-2023 Non-patient / Non-visit MD Marlys Stanford Work Phone: [facility] Work Phone: Start: 10-02-2023 End: 10-02-2023 ambulatory Patricia Stanford Facility:[facility] Start: 10-02-2023 End: 10-02-2023 Admission to same day surgery center MD Patricia Stanford Work Phone: [facility] Work Phone: Start: 10-02-2023 End: 10-02-2023 ambulatory MD Patricia Stanford Work Phone: [facility] Work Phone: Start: 09-23-2023 End: 09-23-2023 ambulatory Patricia Stanford Other [facility] Other Start: 09-23-2023 Telephone encounter Patricia Stanford [facility] Start: 09-09-2023 End: 09-09-2023 ambulatory CARI Keith APLING Not Available Start: 09-04-2023 End: 09-04-2023 ambulatory CARI Keith APLING Not Available Start: 09-03-2023 End: 09-03-2023 ambulatory Patricia Stanford Other [facility] Other Start: 09-03-2023 Telephone encounter Patricia Stanford [facility] Start: 08-30-2023 End: 08-30-2023 ambulatory Patricia Stanford Other [facility] Other Start: 08-30-2023 Office outpatient vi sit 15 minutes Patricia Stanford [facility] Start: 08-30-2023 End: 08-30-2023 Patient encounter procedure MD Patricia Stanford Work Phone: [facility] Start: 08-23-2023 End: 08-23-2023 ambulatory Patricia Stanford Other [facility] Other Start: 08-23-2023 Telephone encounter Patricia Stanford [facility] Start: 08-21-2023 End: 08-21-2023 ambulatory Imad Asaad Other [facility] Other Start: 08-21-2023 Office outpatient ne w 45 minutes Imad Asaad [facility] Start: 08-21-2023 End: 08-21-2023 Patient encounter procedure MD Patricia Stanford Work Phone: [facility] Work Phone: Start: 07-15-2023 End: 07-15-2023 ambulatory Patricia Stanford Other [facility] Other Start: 07-15-2023 Office outpatient vi sit 15 minutes Patricia Stanford [facility] Start: 07-15-2023 Telephone encounter Patricia Stanford [facility] Start: 07-15-2023 End: 07-15-2023 Patient encounter procedure MD Patricia Stanford Work Phone: [facility] Work Phone: Start: 07-06-2023 End: 07-06-2023 Patient encounter procedure MD Patricia Stanford Work Phone: [facility] Work Phone: Start: 05-06-2023 End: 05-07-2023 ambulatory Ara Maier MD Facility:[facility] Start: 04-22-2023 End: 04-23-2023 ambulatory Ara Maier MD Facility:[facility] Start: 10-03-2022 End: 10-05-[address] PATRICIA STANFORD Facility: Start: 09-27-2022 End: 09-28-[address] MASSIMO MATTHEWS . Facility: Start: 09-11-2022 End: 09-11-[address] MASSIMO MATTHEWS . Facility:[facility] Start: 09-07-2022 End: 10-17-[address] MASSIMO MATTHEWS . Facility:[facility] Start: 09-04-2022 End: 09-05-[address] MASSIMO MATTHEWS . Facility:[facility] Start: 07-26-2022 Encounter for preprocedural laboratory examination DR MASSIMO MATTHEWS . [facility] Start: 07-24-2022 End: 07-24-2022 ambulatory [...] Start: 04-20-2022 End: 04-21-2022 ambulatory ARIADNA NOLAN Facility:[facility] Start: 04-09-2022 End: 04-10-[address] PATRICIA STANFORD Facility:[facility] Start: 02-27-2022 End: 02-28-2022 ambulatory DEFAULT PHYSICIAN Facility:[facility] Start: 02-22-2022 End: 02-23-[address] MASSIMO MATTHEWS . Facility:[facility] Start: 12-06-2021 ambulatory MICHELE SALDAÑA . Facility:[facility] Start: 11-30-2021 End: 12-01-[address] MASSIMO MATTHEWS . Facility:[facility] Start: 10-25-2020 Pre-procedure evaluation check Patricia Stanford Other [facility] Other Procedures Date Procedure Procedure Detail Performing Clinician Start: 10-02-2023 Esophagogastroduodenoscopy MD Patricia fox Work Phone: Start: 07-10-2017 Screening mammography Patricia Stanford Other Start: 07-19-2016 General examination of patient Patricia padilla Other Plan of Treatment Date Care Activity Detail Author Start: 10-02-2023 [facility] Immunizations Immunization Date Immunization Notes Care Provider Fa cility 05-17-2022 zoster vaccine, live Patricia Stanford Other [facility] 04-23-2022 influenza virus vaccine, split virus (incl. purified surface antigen) Patricia Stanford Other [facility] Other 04-23-2022 influenza virus vaccine, unspecified formulation MD Patricia Stanford Work Phone: [facility] 04-23-2022 pneumococcal polysaccharide vaccine, 23 valent Patricia Stanford Other [facility] 04-23-2022 tetanus toxoid, adsorbed Patricia Stanford Other [facility] 05-25-2021 influenza virus vaccine, split virus (incl. purified surface antigen) Patricia Stanford Other [facility] Other 05-25-2021 influenza virus vaccine, unspecified formulation MD Patricia Stanford Work Phone: [facility] 10-18-2020 COVID-19 Vaccine Moderna - Documentation Purposes Only Patricia Stanford Other [facility] 09-19-2020 COVID-19 Vaccine Moderna - Documentation Purposes Only Patricia Stanford Other [facility] 04-16-2020 influenza virus vaccine, split virus (incl. purified surface antigen) Patricia Stanford Other [facility] [employer] Other 04-16-2020 influenza virus vaccine, unspecified formulation MD Patricia Stanford Work Phone: [facility] 05-12-2019 influenza virus vaccine, split virus (incl. purified surface antigen) Patricia Stanford Other [facility] [employer] Other 05-12-2019 influenza virus vaccine, unspecified formulation MD Patricia Stanford Work Phone: [facility] 04-18-2018 influenza virus vaccine, split virus (incl. purified surface antigen) Patricia Stanford Other [employer] [facility] [employer] Other 04-18-2018 influenza virus vaccine, unspecified formulation MD Patricia Stanford Work Phone: [facility] 07-10-2017 pneumococcal conjuga te vaccine, 13 valent Patricia Stanford Other [facility] 04-18-2017 influenza virus vaccine, split virus (incl. purified surface antigen) Patricia Stanford Other [facility] [employer] Other 04-18-2017 influenza virus vaccine, unspecified formulation MD Patricia Stanford Work Phone: [facility] 05-09-2016 influenza virus vaccine, split virus (incl. purified surface antigen) Patricia Stanford Other [employer] [facility] [employer] Other 05-09-2016 influenza virus vaccine, unspecified formulation MD Patricia Stanford Work Phone: [facility] 05-27-2013 tetanus and diphther ia toxoids, adsorbed, preservative free, for adult use (5 Lf of tetanus toxoid and 2 Lf of diphtheria toxoid) Patricia Stanford Other [facility] 12-24-2011 pneumococcal polysaccharide vaccine, 23 valent Patircia Abdoulaye Other [facility] Payers Date Payer Category Payer Medicare 2022 Unknown 1959 Medicare [id number] 1959 Unknown [id number] 1945 Unknown [id number] 2.16.8 40.1.328450.3.579.2.647 1945 Unknown [id number] 2.16.8 40.1.943005.3.579.2.647 1945 Unknown [id number] 2.16.84 0.1.598247.3.579.2.593 1945 Unknown [id number] 2.16.84 0.1.915467.3.579.2.593 1945 Unknown [id number] 2.16.84 0.1.545818.3.579.2.593 1946 Unknown [id number] 2.16.84 0.1.546659.3.579.2.593 1946 Unknown [id number] 2.16.84 0.1.335645.3.579.2.593 1946 Unknown [id number] 2.16.84 0.1.274552.3.579.2.593 1946 Unknown [id number] 2.16.84 0.1.674775.3.579.2.593 1946 Unknown [id number] 2.16.84 0.1.646660.3.579.2.593 1945 Unknown [id number] 2.16.84 0.1.507964.3.579.2.593 1946 Unknown [id number] 2.16.84 0.1.721099.3.579.2.593 1945 Unknown [id number] 2.16.84 0.1.736861.3.579.2.593 1946 Unknown [id number] 2.16.84 0.1.710413.3.579.2.593 1946 Unknown [id number] 2.16.84 0.1.981859.3.579.2.593 1946 Unknown [id number] 2.16.84 0.1.635608.3.579.2.593 1946 Unknown [id number] 2.16.84 0.1.515846.3.579.2.1259 1946 Unknown [id number] 2.16.84 0.1.669319.3.579.2.1259 1945 Unknown [id number] 2.16. 840.1.035355.3.579.2.196 1945 Unknown [id number] 2.16. 840.1.296765.3.579.2.196 1945 Unknown [id number] 2.16. 840.1.907690.3.579.2.196 Medicare Medicare Outpatient [id number] 9A [id number] Social History Date Type Detail Facility Unknown if ever smoked [facility] Other Sex Assigned At Sex Assigned At Bir th [facility] Other Start: 10-02-2023 Tobacco smoking status NHIS Never smoked tobacco (finding) [facility] Start: 1945 Sex Assigned At Female [facility] Goals Date Patient Goal Desired Activity /State Clinical Notes 11-30-2021 to 10-02-2023 Note Date & Type Note Facility 10-02-2023 Procedure note [facility] 08-30-2023 Evaluation note Encounter Date Diagnosis [...] try OTC ones in meantime. Referral placed. [facility] Other 01-10-2024 Evaluation note* Encounter Date Diagnosis Assessment Notes Treatment Notes Treatment Clinical Notes Aug, GERD (gastroesophageal reflux disease) (ICD-10 - K21.9) Aug, Chronic diarrhea (ICD-10 - K52.9) Patient reports that her last colonoscopy was at the [facility] about 11 years ago and that she can not remember who preformed the procedure Aug, Abdominal pain (ICD-10 - R10.9) Aug, Weight loss, unintentional (ICD-10 - R63.4) Aug, Change in bowel habits (ICD-10 - R19.4) Patinet is advised to have a colonoscopy ordered, scheduled and prep instructions given today Risks and benefits of procedure explained to patient; patient verbalizes understanding. [facility] Other 12-04-2023 Evaluation note* Encounter Date Diagnosis [...] (ICD-10 - M81.0) Due for Dexa 08/2023 [facility] Other 02-16-2023 NoteCONSULTATION CONSULTATION DATE: 09/27/2022 HISTORY OF PRESENT ILLNESS: This is a 76-year-old female who returns to the clinic status post LES on 09/11/2022. The patient states she was afforded between 50-60% relief. Depending on her physical activity, determines her level of comfort. 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 lifting greatly aggravate her [...] Patient is in agreement with this plan.[id number] NoteCONSULTATION CONSULTATION DATE: 09/04/2022 HISTORY OF PRESENT [...] patient understands and would like to proceed.[facility] [id number] NoteCONSULTATION CONSULTATION DATE: 07/11/2022 HISTORY OF PRESENT [...] followed up in the clinic post procedure.[facility] [id number] NoteCONSULTATION PROCEDURE DATE: 07/11/2022 PREOPERATIVE DIAGNOSIS: Bilateral [...] will be followed up in the clinic.[facility] 06-06-2022 NoteCONSULTATION CONSULTATION DATE: 06/06/2022 HISTORY [...] pain returning. 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 The patient has not seen a senior product marketing manager in the past. REVIEW OF SYSTEMS, PAST [...] mg q.h.s. A referral to rheumatology near [place] will be sent on her behalf and I highly encouraged her to seek consultation, particularly since she has a familial history of autoimmune diseases. The patient agrees with the plan of care and will be followed up in the office in three months' time. [facility] Signed and Approved by: MICHELE SALDAÑA . 03/02/2022 14:16:00[facility]04-21-2022 NoteCONSULTATION Consultation Date:11/30/2021 PREOPERATIVE DIAGNOSIS: Right [...] will be followed up in the office. [facility] Signed and Approved by: MICHELE SALDAÑA . 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 Lying down and using heat decrease her pain. Prior to the procedure, she was in a state of acute pain and was placed on a short term course of [place] 5/325 b.i.d. p.r.n. Patient states she only [...] of care and would like to proceed. [facility] Signed and Approved by: MICHELE SALDAÑA . 12/06/2021 16:15:00[facility] HospitalEvaluation noteNo InformationNort [employer] Other Evaluation noteNo assessment information available [facility] Work Phone: History and physical note Author Sunny Torres [facility] October 02, 2023 8:54am Note Date/Time October 02, 2023 8:54am [facility] [address] [place] [address] Gastroenterology H&P Signed Patient: Lobo Murdock MR#: [id number] : 1945 Acct:[id number] Age/Sex: 78 / F Adm Date: 4 Loc: Room: Type: [facility] Attending Dr: Sunny Torres MD Copies [...] <Electronically signed by Sunny Torres MD> 10/02/23 0838 [facility] Work Phone: History general Narrative - [...] shoulder pain 1982 Hospitalization History migraines 1992 [facility] Other Hospital Discharge instructions Additional Instructions DISCHARGE [...] up in the office - Office number [phone]. [facility] Work Phone: Summary Purpose Family History [...] 1 Chronic diarrhea (K5 2.9) Referral Organization [facility] Referring Provider First Name Patricia Referring Provider Last Name Abdoulaye Referring Provider Specialty [facility] Referred Organization [facility] Referred Address [address],[address] Referred Provider Specialty Gastroentero logy Referral Priority Routine Reason *FU 09/06 R foot p ain Diagnosis 1 Pain of left great t oe (M79.675) Referral Organization [facility] [employer] [facility] Referring Provider First Name Patricia Referring Provider Last Name Abdoulaye Referring Provider Specialty [facility] Referred Organization [facility] Referred Provider Odin Chong Referred Address [address] [place], [place],[address] Referred Provider Specialty Podiatry - S urgical [...] and content) DATE CREATED AUTHOR 05/09/[address] [facility] DATE CREATED AUTHOR AUTHOR'S ORGANIZ ATION 11/17/2022 [facility] DATE CREATED AUTHOR AUTHOR'S ORGANIZ ATION 09/09/2023 [facility] EPIC DATE CREATED AUTHOR AUTHOR'S ORGANIZ ATION 10/09/2023 [facility] DATE CREATED AUTHOR AUTHOR'S ORGANIZ ATION 10/18/2023 [facility] REASON FOR VISIT (unrecogniz ed section and [...] BE BASED ON THE PRIMARY CLINICAL RECORDS. [employer] [facility]. provides no warranty or guarantee of the accuracy or completeness of information in this document.
== END 2023-12-17 11:15 | disposition home or self-care (01) ==
LOC: EC 11:14
PROVIDERS: PCP Family Medicine; Visit Provider Podiatrist Foot & Ankle Surgery
DX: M20.12 Hallux valgus (acquired), left foot (principal); Z98.890 Other specified postprocedural states
CPT/HCPCS: 73630

== ENCOUNTER 2024-01-07 10:37 | Outpatient (OUT) | payer MEDICARE, SELFPAY ==
--- NOTE | 2024-01-07 | XR_ITS ---
The [address] [address] Patient Name: LOBO MURDOCK MRN: [id number] date: 1945 Sex: F Assigned Patient Location: Current Patient Location: Accession/Order Number: [id number] Exam Date: 01/07/2024 10:37 Report Date: 01/08/2024 06:15 At the request of: DANNY MEDINA Procedure: XR foot LT min 3V PROCEDURE: XR foot LT min 3V HISTORY: LEFT FOOT PAIN COMPARISON: XR foot left 12/17/2023 FINDINGS: BONES:Mechanical fusion the first metatarsophalangeal joint via dorsal plate and screws; no appreciable hardware fracture loosening. No bone fracture dislocation. SOFT TISSUES:Mild medial soft tissue swelling. EFFUSION:None visible. OTHER: Negative. XR/XR foot LT min 3V IMPRESSION: 1. Stable surgical changes without evidence of hardware failure or change in alignment. Electronically authenticated by: IRINA VÁZQUEZ Date: 01/08/2024 06:15
--- OUTSIDE RECORDS SUMMARY | 2024-01-07 10:42 | XMS_ITS | CCD ---
Author Organization [facility] Care Team Providers Care Cruise Agent Name Role Phone PHYSICIAN, DEFAULT Admitting Unavailable PHYSICIAN, DEFAULT Attending Unavailable ALT-DANIEL, BRINDA Primary Care Unavailable OVIDIOARIADNA LINDSEY Admitting Unavailable OVIDIO, ARIADNA Cook Attending Unavailable [...] PATRICIA Crain Primary Care Unavailable SALDAÑA ., IMCHELE Attending Unavailable ABDOULAYE, DR PATRICIA Crain Primary [...] Unavailable Gitorinitis , Ara Loomis Attending Unavailable Gitorinitis , Ara Loomis Attending Unavailable Gieditis , Ara Loomis Attending Unavailable Allergies Allergy Classification Reported Allergen(s) Allergy Type Date of Onset Reaction(s) Facility (8 sources) Calcitonin ([place]) *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 Propensity to adverse reactions Comment:severe weakness [facility] Other Medications Current Medications Medication Drug Class(es) [...] Active Subcutaneous for 0 *Pick strength-form from [employer] for eRX* Aug, Active diclofenac sodium 50 [...] day for 0 days *Pick strength-form from [employer] for eRX* Oct, Active Multiple Vitamin (8 [...] Other aftercare (8 sources) 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; Translations: [emt intermediate (current) use of bisphosphonates] Episodic Other connective [...] Test Name Value Interpretation Reference Range Facility [facility] 10-02-2023 L Specimen: [id number] Received: 10/02/23 Status: OJ Reedwige Num: [id number] Spec Type: Surgical Subm Dr: Sunny Torres MD Tissues: A GASTRIC FOR HP (GASTRIC BX R/O H.PYLORI) B Colon Biopsy (RANDOM COLON BX R/O MICROSCO) Procedures: HE/4, Gross/Micro L4/2, H PYLORI Age/ Patient Sex Location Account Attending Physician Lobo Murdock 78/F [id number] Sunny Torres MD SPEC NUM: [id number] RECD: 10/02/23 STATUS: OJ BRICE NUM: [id number] TEO: 10/02/[address]: Sunny Torres MD ENTERED: 10/02/23 [facility]: SPEC TYPE: Surgical DEPT: S ORDERED: [...] name, date of and random colon Specimen: [id number] Received: 10/02/23 Status: OJ Brice Num: [id number] Spec Type: Surgical Subm Dr: Sunny Torres MD Tissues: A GASTRIC FOR HP (GASTRIC BX R/O H.PYLORI) B Colon Biopsy (RANDOM COLON BX R/O MICROSCO) Procedures: HE/4, Gross/Micro L4/2, H PYLORI Patient: Lobo Murdock [id number] (Continued) Specimen: [id number] Received: 10/02/23 (Continued) Gross Description (Continued) Signed (signature on file) Patito Grimm MD 10/03/23 1430 Specimen: [id number] Received: 10/02/23 Status: OJ Brice Num: [id number] Spec Type: Surgical Subm Dr: Sunny Torres MD Tissues: A GASTRIC FOR HP (GASTRIC BX R/O H.PYLORI) B Colon Biopsy (RANDOM COLON BX R/O MICROSCO) Procedures: HE/4, Gross/Micro L4/2, H PYLORI Patient: Lobo Murdock [id number] (Continued) Specimen: [id number] Received: 10/02/23 (Continued) Gross Description (Continued) biopsy are 2 galvan translucent soft tissue fragments, 0.3 and 0.6 cm in greatest dimensions. Entirely submitted in one cassette labeled B1. CPT Codes 29949g3 36560 Specimen: [id number] Received: 10/02/23-1022 Status: OJ Brice Num: [id number] Spec Type: Surgical Subm Dr: Sunny Torres MD Tissues: A GASTRIC FOR HP (GASTRIC BX R/O H.PYLORI) B Colon Biopsy (RANDOM COLON BX R/O MICROSCO) Procedures: HE/4, Gross/Micro L4/2, H PYLORI Patient: Lobo Murdock [id number] (Continued) Signed (signature on file) Patito Grimm MD 10/03/23 1430 [facility] CALCIUMon 10-03-2022 Calcium [Mass/Vol] 8.9 mg/dL Normal 8.5-10.1 [facility] Comment on above: Performed By: #### VALERIO MADRIGAL #### [facility] [address] [place] [address] Dr. Dang Grimm CREATININEon 10-03-2022 Creatinine [Mass/Vol] 1.03 mg/dL Critically high 0.55-1.02 [facility] Comment on above: Performed By: #### C [place]GIE, [place] #### [facility] [address] [place], [place] [address] Dr. Dang Grimm EGFR-AF PERUVIAN >60 Normal >=60 The [facility] Comment on above: Performed By: #### C ANGIE, [place] #### [facility] [address] [place], [place] [address] Dr. Dang Grimm EGFR-NON AF PERUVIAN 52 mL/min/1.73m2 Critically low >=60 The [facility] Comment on above: Performed By: #### C ANGIE, [place] #### [facility] [address] [place], [place] [address] Dr. Dang Grimm Covid-19 PCR ([facility])on SARS-CoV-2 (COVID-19) RNA GENARO+probe Ql (Unsp spec) Not detected Normal NOT DETECTED The [facility] Comment on above: Result Comment: This test is not yet approved or cleared by the [place] FDA. When there are no FDA-approved or cleared tests available, and other criteria are met, FDA can make tests available under an emergency access mechanism called an Emergency Use Authorization (EUA). The EUA for this test is supported by the [place] of Health and Human Service's (HHS's) declaration [...] SARS-CoV-2. Performed By: #### C VDTBH #### [facility] [address] [place] [address] [address] Dang Archer 04-20-2022 OCTAVIA PATTERN SPECKLED Normal [facility] Comment on above: Result Comment: The MELCHOR [...] Performed By: #### 1 0196 #### [facility] [address] OCTAVIA SCREEN 1:40 Normal <1:40,1:40 [facility] Comment on above: Result Comment: Test performed using MELCHOR IFA OCTAVIA Hep-2 Test, a pre-standardized assay designed for the qualitative and semi-quantitative detection of antinuclear antibodies. Performed By: #### 1 0196 #### [facility] [address] C REACTIVE PROTEINon 022 CRP [Mass/Vol] 2.5 mg/L Normal 0.0-7.0 The [facility] Comment on above: Performed By: #### 6 1405, 45552 #### [facility] [address] CBC COMPLETE BLOOD COUNTon 0 04-20-2022 Erythrocyte distribution width (RBC) [Ratio] 12.4 % Normal 11.5-15.0 [facility] Comment on above: Performed By: #### 5 3046, 90786 #### [facility] [address] Hematocrit (Bld) [Volume fraction] 41.6 % Normal 36.0-45.0 [facility] Comment on above: Performed By: #### 5 6816, 26625 #### [facility] [address] Hemoglobin (Bld) [Mass/Vol] 13.7 g/dL Normal 12.0-15.0 [facility] Comment on above: Performed By: #### 5 6506, 78988 #### [facility] [address] [place] [id number], [facility] MCH (RBC) [Entitic mass] 31.4 pg Normal 27.0-33.0 [facility] Comment on above: Performed By: #### 5 650, 18894 #### [facility] [address] [place] [id number], [facility] MCHC (RBC) [Mass/Vol] 32.9 g/dL Normal 32.0-35.0 [facility] Comment on above: Performed By: #### 5 6505, 38573 #### [facility] [address] [place] [address], [facility] MCV (RBC) [Entitic vol] 95.2 fL Normal 82.0-98.0 [facility] Comment on above: Performed By: #### 5 6505, 32375 #### [facility] [address] [place] [address], [facility] Nucleated RBC/100 WBC (Bld) [Ratio] 0 % Normal 0-0 [facility] Comment on above: Performed By: #### 5 6505, 72579 #### [facility] [address] [place] [id number], [facility] PLAT CNT 248 10*3/uL Normal 150-400 [facility] Comment on above: Performed By: #### 5 6505, 98387 #### [facility] [address] [place] [address], [facility] RBC (Bld) [#/Vol] 4.37 10*6/uL Normal 3.80-5.00 The [facility] Comment on above: Performed By: #### 5 650, 31362 #### [facility] [address] [place] [id number], [place] WBC (Bld) [#/Vol] 5.54 10*3/uL Normal 4.00-10.60 The [facility] Comment on above: Performed By: #### 5 6506, 23716 #### [address] CERVICAL SPINE 4 OR 5 VIEWSo n 04-20-2022 CERVICAL SPINE 4 OR 5 VIEWS [facility] Department of Radiology [address] [place] [id number] ===== Patient Name: LOBO MURDOCK : 1945 Sex: F Age: Race: White Pt. Location: [facility] Patient Status: O Ordered Date: 04/20/2022 10:50:00 AM Completed Date: 04/20/2022 11:42 AM Requesting Provider: MICHAEL HAHN Attending Provider: ARIADNA NOLAN Report Copy To: Signs & Symptoms: M54.2 Cervicalgia I10 History: [place] Comments: Views (X-RAY, CERVICAL SPINE): AP, Lateral, [...] C3 Electronically signed: Christian Upton. Transcribed by: [email or web address], User Resident: Electronically Signed by: CHRISTIAN UPTON @ 04/20/2022 02:33 PM Normal [facility] Comment on above: Order Comment: Views (X-RAY, CERVICAL SPINE): AP, Lateral, Odontoid, Flexion, Extension COMP METABOLIC PANELon 04-20 Albumin [Mass/Vol] 4.1 g/dL Normal 3.5-5.7 [facility] Comment on above: Performed By: #### 3 5515, 95986, 98874 #### [facility] [address] [place] [address], [facility] ALKALINE PHOSPH 63 IU/L Normal 34-104 [facility] Comment on above: Performed By: #### 3 5515, 48744, 05287 #### [facility] [address] [place] [id number], [facility] ALT [Catalytic activity/Vol] 15 U/L Normal 7-52 [facility] Comment on above: Performed By: #### 3 5515, 89776, 63024 #### [facility] [address] [place] [address], [facility] AST [Catalytic activity/Vol] 22 U/L Normal 13-39 [facility] Comment on above: Performed By: #### 3 5515, 89303, 33796 #### [facility] [address] [place] [id number], [facility] Bilirubin [Mass/Vol] 0.5 mg/dL Normal 0.3-1.0 [facility] Comment on above: Performed By: #### 3 5515, 90665, 69476 #### [facility] [address] [place] [address], [facility] Calcium [Mass/Vol] 10.2 mg/dL Normal 8.6-10.3 [facility] Comment on above: Performed By: #### 3 5515, 59283, 63115 #### [facility] [address] [place] [address], [place] Chloride [Moles/Vol] 105 mmol/L Normal 98-107 [facility] Comment on above: Performed By: #### 3 5515, 67671, 54650 #### [facility] [address] [place] [address], [place] CO2 [Moles/Vol] 25 mmol/L Normal 21-31 [facility] Comment on above: Performed By: #### 3 5515, 32045, 87076 #### [facility] [address] [place] [address], [facility] Creatinine [Mass/Vol] 0.95 mg/dL Normal 0.60-1.20 [facility] Comment on above: Performed By: #### 3 5515, 28501, 70857 #### [facility] [address] [place] [address], [place] GFR/1.73 sq M.predicted among non-blacks MDRD (S/P/Bld) [Vol rate/Area] mL/min/{1.73_m2} Normal >60 [facility] Comment on above: Result Comment: [facility]'s estimated glomerular filtration rate [...] of individuals. Performed By: #### 3 5515, 62893, 28775 #### [facility] [address] [place] [address], [place] Glucose [Mass/Vol] 88 mg/dL Normal 70-100 [facility] Comment on above: Performed By: #### 3 5515, 29047, 68053 #### [facility] [address] [place] [address], [place] Potassium [Moles/Vol] 4.5 mmol/L Normal 3.5-5.1 [facility] Comment on above: Performed By: #### 3 5515, 29155, 69714 #### [facility] [address] [place] [address], [place] Protein [Mass/Vol] 6.8 g/dL Normal 6.0-8.3 [facility] Comment on above: Performed By: #### 3 5515, 01413, 13054 #### [facility] [address] [place] [address], [place] Sodium [Moles/Vol] 138 mmol/L Normal 136-145 [facility] Comment on above: Performed By: #### 3 5515, 85451, 76941 #### [facility] [address] [place] [address], [place] Urea nitrogen [Mass/Vol] 29 mg/dL High 7-25 [facility] Comment on above: Performed By: #### 3 5515, 03437, 65055 #### [facility] [address] [place] [address], [place] CYCLIC [place] PEPTIDE [place] [id number] 04-20-2022 CYCLIC CIT PEP 2 Units Normal 0-19 The [facility] Comment on above: Result Comment: [...] be monitored and testing repeated. Performed By: [employer] [address] [place] [address] [place] Attendant: Brett Tamez MD, PhD FERRITINon 04-20-2022 Ferritin [Mass/Vol] 43 ng/mL Normal 11-307 [facility] Comment on above: Performed By: #### 3 5515, 52867, 81636 #### [address] [facility] HAND LEFT 3 VWS [facility] Department of Radiology [address] [place] [id number] ===== Patient Name: LOBO MURDOCK : 1945 Sex: F Age: Race: White Pt. Location: [facility] Patient Status: O Ordered Date: 04/20/2022 10:50:00 AM Completed Date: 04/20/2022 11:42 AM Requesting Provider: MICHAEL HAHN Attending Provider: ARIADNA NOLAN Report Copy To: Signs & Symptoms: M79.641 Pain in right hand I10 History: [place] Comments: Evaluate Exam: HAND LEFT 3 [facility] ===== HAND LEFT 3 S 04/20/2022 11:42 [...] report. Electronically signed: Chelita Lazcano. Transcribed by: [email or web address], User Resident: NIRMALA MONGE Electronically Signed by: CHELITA LAZCANO @ 04/20/2022 01:29 PM I personally read this/these film(s) with this resident Normal [facility] Comment on above: Order Comment: Evalu ate HAND RIGHT 3 [facility] 2 HAND RIGHT 3 [facility] Department of Radiology [address] [place] [phone] ===== Patient Name: LOBO MURDOCK : 1945 Sex: F Age: Race: White Pt. Location: [facility] Patient Status: O Ordered Date: 04/20/2022 10:50:00 [...] report. Electronically signed: Chelita Lazcano. Transcribed by: [email or web address], User Resident: NIRMALA MONGE Electronically Signed by: CHELITA LAZCANO @ 04/20/2022 01:43 PM I personally read this/these film(s) with this resident Normal [facility] Comment on above: Order Comment: Evalu ate RHEUMATOID FACTOR SERUMon RA <20 Normal 0-20 [facility] Comment on above: Performed By: #### 6 1405, 01152 #### [facility] [address] [place] [address], [facility] SEDIMENTATION RATEon 022 SED RATE 38 mm/hr High 0-20 [facility] Comment on above: Performed By: #### 5 6506, 14651 ####[facility] [place] [address], [facility] TIBC- INCLUDES IRONon 2021 FE SATURATION 30 % Normal 20-50 [facility] Comment on above: Performed By: #### 3 5515, 67257, 05957 #### [facility] [address] [place] [address], [facility] Iron [Mass/Vol] 115 ug/dL Normal 50-212 [facility] Comment on above: Performed By: #### 3 5515, 73122, 70103 #### [facility] [address] [place] [address], [facility] TIBC 378 mcg/dL Normal 250-450 [facility] Comment on above: Performed By: #### 3 5515, 98519, 07985 #### [facility] [address] [place] [address], [facility] UIBC 263 mcg/dL Normal 155-355 [facility] Comment on above: Performed By: #### 3 5515, 35800, 02365 #### [facility] [address] [place] [address], [facility] CALCIUMon 04-09-2022 Calcium [Mass/Vol] 9.6 mg/dL Normal 8.5-10.1 [facility] Comment on above: Performed By: #### VALERIO MADRIGAL #### [facility] [address] [place] [address] [address] Dang Grimm CREATININEon 04-09-2022 Creatinine [Mass/Vol] 1.07 mg/dL Critically high 0.55-1.02 [facility] Comment on above: Performed By: #### C [place]GIE, [place] #### [facility] [address] [place], [place] [address] Dr. Dang Grimm EGFR-AF PERUVIAN >60 Normal >=60 [facility] Comment on above: Performed By: #### C [place]IE, [place] #### [facility] [address] [place], [place] [address] Dr. Dang Grimm EGFR-NON AF PERUVIAN 50 mL/min/1.73m2 Critically low >=60 [facility] Comment on above: Performed By: #### Bhumika ADAMS, [place] #### [facility] [address] [place], [place] [address] Dr. Dang Grimm Vital Signs Date Time Vital Sign Value Performing Clinician Facility 10-02-2023 09:55-0500 Diastolic blood pressure 67 mm[Hg] MD Patricia Stanford Work Phone: [facility] 10-02-2023 09:55-0500 Heart rate 80 /min MD Patricia Stanford Work Phone: [facility] 10-02-2023 09:55-0500 Respiratory rate 16 /min MD Patricia Stanford Work Phone: [facility] 10-02-2023 09:55-0500 SaO2% (BldA) [Mass fraction] 99 % MD Patricia Stanford Work Phone: [facility] 10-02-2023 09:55-0500 Systolic blood pressure 108 mm[Hg] MD Patricia Stanford Work Phone: [facility] 10-02-2023 07:07-0500 Body height 160.02 cm MD Patricia Stanford Work Phone: [facility] 10-02-2023 07:07-0500 Body weight 56.69 kg MD Patricia Stanford Work Phone: [facility] 08-30-2023 10:30-0500 Body height 157.48 cm Patricia Stanford Other [facility] 08-30-2023 10:30-0500 Body mass index (BMI) [Ratio] 21.73 kg/m2 Patricia Stanford Other [facility] [employer] Other 08-30-2023 10:30-0500 Body weight 53.89 kg Patricia Stanford Other [facility] [employer] Other 08-30-2023 10:30-0500 Body weight 53.88 kg MD Patricia Stanford Work Phone: [facility] 08-30-2023 10:30-0500 Diastolic blood pressure 74 mm[Hg] Patricia Stanford Other [facility] 08-30-2023 10:30-0500 Systolic blood pressure 122 mm[Hg] Patricia Stanford Other [facility] 08-21-2023 13:45-0500 Body height 157.48 cm Imad Asaad Other [facility] 08-21-2023 13:45-0500 Body mass index (BMI) [Ratio] 21.58 kg/m2 Imad Asaad Other [facility] [employer] Other 08-21-2023 13:45-0500 Body weight 53.52 kg Imad Asaad Other [facility] 07-15-2023 11:30-0500 Body height 157.48 cm Patricia Stanford Other [facility] 07-15-2023 11:30-0500 Body mass index (BMI) [Ratio] 21.73 kg/m2 Patricia Stanford Other [facility] [employer] Other 07-15-2023 11:30-0500 Body weight 53.89 kg Patricia Stanford Other [facility] [employer] Other 07-15-2023 11:30-0500 Body weight 53.88 kg MD Patricia Stanford Work Phone: [facility] 07-15-2023 11:30-0500 Diastolic blood pressure 78 mm[Hg] Patricia Stanford Other [facility] 07-15-2023 11:30-0500 Systolic blood pressure 148 mm[Hg] Patricia Stanford Other [facility] 07-06-2023 09:20-0500 Body height 157.48 cm MD Patricia Stanford Work Phone: [facility] 07-06-2023 09:20-0500 Body weight 55.51 kg MD Patricia Stanford Work Phone: [facility] Encounters Encounter Date Encounter Type Care Provider Facility Start: 10-14-2023 End: 10-15-2023 ambulatory Ara Maier MD Facility:[facility] Start: 10-04-2023 End: 10-04-2023 ambulatory Imad Asaad Other [facility] Other Start: 10-04-2023 Telephone encounter Imad Asaad [facility] Start: 10-02-2023 Non-patient / Non-visit MD Marlys Stanford Work Phone: [facility] Work Phone: Start: 10-02-2023 End: 10-02-2023 ambulatory Patricia Stanford Facility:[facility] Start: 10-02-2023 End: 10-02-2023 Admission to same day surgery center MD Patricia Stanford Work Phone: [facility] Work Phone: Start: 10-02-2023 End: 10-02-2023 ambulatory MD Patricia Stanford Work Phone: [facility] Work Phone: Start: 09-23-2023 End: 09-23-2023 ambulatory Patricia Stanford Other [facility] Other Start: 09-23-2023 Telephone encounter Patricia Stanford [facility] Start: 09-09-2023 End: 09-09-2023 ambulatory CARI Keith [employer] Not Available Start: 09-04-2023 End: 09-04-2023 ambulatory CARI Keith [employer]PL[employer] Not Available Start: 09-03-2023 End: 09-03-2023 ambulatory Patricia Stanford Other [facility] Other Start: 09-03-2023 Telephone encounter Patricia Stanford [facility] [employer] [facility] [facility] Start: 08-30-2023 End: 08-30-2023 ambulatory Patricia Stanford Other [facility] Other Start: 08-30-2023 Office outpatient vi sit 15 minutes Patricia Stanford [facility] Start: 08-30-2023 End: 08-30-2023 Patient encounter procedure MD Patricia Stanford [facility] Start: 08-23-2023 End: 08-23-2023 ambulatory Patricia Stanford Other [facility] Other Start: 08-23-2023 Telephone encounter Patricia Stanford [facility] Start: 08-21-2023 End: 08-21-2023 ambulatory Imad Asaad Other [facility] Other Start: 08-21-2023 Office outpatient ne w 45 minutes Imad Asaad [facility] Start: 08-21-2023 End: 08-21-2023 Patient encounter procedure MD Patricia Stanford Work Phone: [facility] Work Phone: Start: 07-15-2023 End: 07-15-2023 ambulatory Patricia Stanford Other [employer] Other Start: 07-15-2023 Office outpatient vi sit 15 minutes Patricia Stanford [facility] Start: 07-15-2023 Telephone encounter Patricia Stanford [facility] Start: 07-15-2023 End: 07-15-2023 Patient encounter procedure MD Patricia Stanford Work Phone: [facility] Work Phone: Start: 07-06-2023 End: 07-06-2023 Patient encounter procedure MD Patricia Stanford Work Phone: [facility] Luis Alfredo Work Phone: Start: 05-06-2023 End: 05-07-2023 ambulatory Ara Maier MD Facility:[facility] Start: 04-22-2023 End: 04-23-2023 ambulatory Ara Maier MD Facility:[facility] Start: 10-03-2022 End: 10-05-[address] PATRICIA STANFORD Facility:[facility] Start: 09-27-2022 End: 09-28-[address] MASSIMO MATTHEWS . Facility:[facility] Start: 09-11-2022 End: 09-11-[address] MASSIMO MATTHEWS . Facility:[facility] Start: 09-07-2022 End: 10-17-[address] MASSIMO MATTHEWS . Facility:[facility] Start: 09-04-2022 End: 09-05-[address] MASSIMO MATTHEWS . Facility:[facility] Start: 07-26-2022 Encounter for preprocedural laboratory examination DR MASSIMO MATTHEWS . [facility] Start: 07-24-2022 End: 07-24-2022 ambulatory [...] Start: 04-20-2022 End: 04-21-2022 ambulatory ARIADNA NOLAN [facility] Start: 04-09-2022 End: 04-10-[address] PATRICIA STANFORD Facility: Start: 02-27-2022 End: 02-28-2022 ambulatory DEFAULT PHYSICIAN [facility] Start: 02-22-2022 End: 02-23-[address] MASSIMO MATTHEWS . Facility:[facility] Start: 12-06-2021 ambulatory MICHELE SALDAÑA . Facility:[facility] Start: 11-30-2021 End: 12-01-[address] MASSIMO MATTHEWS . Facility: Start: 10-25-2020 Pre-procedure evaluation check Patricia Stanford Other [employer] Other Procedures Date Procedure Procedure Detail Performing Clinician Start: 10-02-2023 Esophagogastroduodenoscopy MD Patricia fox Work Phone: Start: 07-10-2017 Screening mammography Patricia Stanford Other Start: 07-19-2016 General examination of patient Patricia padilla Other Plan of Treatment Date Care Activity Detail Author Start: 10-02-2023 [facility] Immunizations Immunization Date Immunization Notes Care Provider Fa cility 05-17-2022 zoster vaccine, live Patricia Stanford Other [facility] 04-23-2022 influenza virus vaccine, split virus (incl. purified surface antigen) Patricia Stanford Other [employer] Other 04-23-2022 influenza virus vaccine, unspecified formulation MD Patricia Stanford Work Phone: [facility] 04-23-2022 pneumococcal polysaccharide vaccine, 23 valent Patricia Stanford Other [facility] 04-23-2022 tetanus toxoid, adsorbed Patricia Stanford Other [facility] 05-25-2021 influenza virus vaccine, split virus (incl. purified surface antigen) Patricia Stanford Other [facility] Other 05-25-2021 influenza virus vaccine, unspecified formulation MD Patricia Stanford Work Phone: [facility] 10-18-2020 COVID-19 Vaccine Moderna - Documentation Purposes Only Patricia Stanford Other [facility] 09-19-2020 COVID-19 Vaccine Moderna - Documentation Purposes Only Patricia Stanford Other [facility] 04-16-2020 influenza virus vaccine, split virus (incl. purified surface antigen) Patricia Stanford Other [facility] [employer] Other 04-16-2020 influenza virus vaccine, unspecified formulation MD Patricia Stanford Work Phone: [facility] 05-12-2019 influenza virus vaccine, split virus (incl. purified surface antigen) Patricia Stanford Other [facility] [employer] Other 05-12-2019 influenza virus vaccine, unspecified formulation MD Patricia Stanford Work Phone: [facility] 04-18-2018 influenza virus vaccine, split virus (incl. purified surface antigen) Patricia Stanford Other [facility] [employer] Other 04-18-2018 influenza virus vaccine, unspecified formulation MD Patricia Stanford Work Phone: [facility] 07-10-2017 pneumococcal conjuga te vaccine, 13 valent Patricia Stanford Other [facility] 04-18-2017 influenza virus vaccine, split virus (incl. purified surface antigen) Patricia Stanford Other [facility] [employer] Other 04-18-2017 influenza virus vaccine, unspecified formulation MD Patricia Stanford Work Phone: [facility] 05-09-2016 influenza virus vaccine, split virus (incl. purified surface antigen) Patricia Stanford Other [employer] Other 05-09-2016 influenza virus vaccine, unspecified formulation MD Patricia Stanford Work Phone: [facility] 05-27-2013 tetanus and diphther ia toxoids, adsorbed, preservative free, for adult use (5 Lf of tetanus toxoid and 2 Lf of diphtheria toxoid) Patricia Stanford Other [facility] 12-24-2011 pneumococcal polysaccharide vaccine, 23 valent Patriciaverna Stanford Other [facility] Payers Date Payer Category Payer Medicare 2022 Unknown 1959 Medicare [id number] 1959 Unknown [id number] 1945 Unknown [id number] 2.16.8 40.1.230785.3.579.2.647 1945 Unknown [id number] 2.16.8 40.1.580963.3.579.2.647 1945 Unknown [id number] 2.16.84 0.1.804455.3.579.2.593 1945 Unknown [id number] 2.16.84 0.1.113631.3.579.2.593 1946 Unknown [id number] 2.16.84 0.1.686549.3.579.2.593 1946 Unknown [id number] 2.16.84 0.1.190283.3.579.2.593 1946 Unknown [id number] 2.16.84 0.1.168103.3.579.2.593 1946 Unknown [id number] 2.16.84 0.1.256562.3.579.2.593 1946 Unknown [id number] 2.16.84 0.1.571449.3.579.2.593 1946 Unknown [id number] 2.16.84 0.1.034385.3.579.2.593 1946 Unknown [id number] 2.16.84 0.1.863498.3.579.2.593 1946 Unknown [id number] 2.16.84 0.1.887570.3.579.2.593 1946 Unknown [id number] 2.16.84 0.1.393753.3.579.2.593 1946 Unknown [id number] 2.16.84 0.1.281379.3.579.2.593 1946 Unknown [id number] 2.16.84 0.1.978993.3.579.2.593 1946 Unknown [id number] 2.16.84 0.1.699081.3.579.2.593 1946 Unknown [id number] 2.16.84 0.1.079406.3.579.2.1259 1946 Unknown [id number] 2.16.84 0.1.567609.3.579.2.1259 1945 Unknown [id number] 2.16. 840.1.957093.3.579.2.196 1945 Unknown [id number] 2.16. 840.1.933016.3.579.2.196 1945 Unknown [id number] 2.16. 840.1.712308.3.579.2.196 Medicare Medicare Outpatient [id number] [id number] Social History Date Type Detail Facility Unknown if ever smoked [employer] Other Sex Assigned At Sex Assigned At Bir th [facility] Other Start: 10-02-2023 Tobacco smoking status NHIS Never smoked tobacco (finding) [facility] Start: 1945 Sex Assigned At Female F [facility] Goals Date Patient Goal Desired Activity /State Clinical Notes 11-30-2021 to 10-02-2023 Note Date & Type Note Facility 10-02-2023 Procedure note [facility] 08-30-2023 Evaluation note Encounter Date [...] try OTC ones in meantime. Referral placed. [employer] Other 01-10-2024 Evaluation note* Encounter Date Diagnosis Assessment Notes Treatment Notes Treatment Clinical Notes Aug, GERD (gastroesophageal reflux disease) (ICD-10 - K21.9) Aug, Chronic diarrhea (ICD-10 - K52.9) Patient reports that her last colonoscopy was at the [facility] about 11 years ago and that she can not remember who preformed the procedure Aug, Abdominal pain (ICD-10 - R10.9) Aug, Weight loss, unintentional (ICD-10 - R63.4) Aug, Change in bowel habits (ICD-10 - R19.4) Patinet is advised to have a colonoscopy ordered, scheduled and prep instructions given today Risks and benefits of procedure explained to patient; patient verbalizes understanding. [facility] Other 12-04-2023 Evaluation note* Encounter Date Diagnosis [...] (ICD-10 - M81.0) Due for Dexa 08/2023 [facility] Other 02-16-2023 NoteCONSULTATION CONSULTATION DATE: 09/27/2022 HISTORY OF PRESENT ILLNESS: This is a 76-year-old female who returns to the clinic status post LES on 09/11/2022. The patient states she was afforded between 50-60% relief. Depending on her physical activity, determines her level of comfort. 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 hours, housework and lifting greatly aggravate [...] Patient is in agreement with this plan.[facility] [id number] NoteCONSULTATION CONSULTATION DATE: 09/04/2022 HISTORY OF PRESENT [...] patient understands and would like to proceed.[facility] [id number] NoteCONSULTATION CONSULTATION DATE: 07/11/2022 HISTORY OF PRESENT [...] followed up in the clinic post procedure.[facility] [id number] NoteCONSULTATION PROCEDURE DATE: 07/11/2022 PREOPERATIVE DIAGNOSIS: Bilateral [...] will be followed up in the clinic.[facility] 06-06-2022 NoteCONSULTATION CONSULTATION DATE: 06/06/2022 [...] pain returning. 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 The patient has not seen a paragliding instructor in the past. REVIEW OF SYSTEMS, PAST [...] mg q.h.s. A referral to rheumatology near [place] will be sent on her behalf and I highly encouraged her to seek consultation, particularly since she has a familial history of autoimmune diseases. The patient agrees with the plan of care and will be followed up in the office in three months' time. IF Signed and Approved by: MICHELE SALDAÑA . 03/02/2022 14:16:00[facility]04-21-2022 NoteCONSULTATION Consultation Date:11/30/2021 PREOPERATIVE DIAGNOSIS: [...] and Approved by: MICHELE SALDAÑA . 12/06/2021 16:15:00[facility]04-21-2022 NoteCONSULTATION Consultation Date:11/30/2021 PAIN MANAGEMENT [...] her pain are twisting, turning, pushing, pulling, source inspector hours, lifting and transitioning positions. Lying down and using heat decrease her pain. Prior to the procedure, she was in a state of acute pain and was placed on a short term course of [place] 5/325 b.i.d. p.r.n. Patient states she only [...] and Approved by: MICHELE SALDAÑA . 12/06/2021 16:15:00[facility] CenterEvaluation noteNo InformationNort [employer] Other Evaluation noteNo assessment information available [facility] Work Phone: History and physical note Author Sunny Torres [facility] October 02, 2023 8:54am Note Date/Time October 02, 2023 8:54am [facility] [address] [place] [address] Gastroenterology H&P Signed Patient: Lobo Murdock MR#: [id number] : 1945 Acct:[id number] Age/Sex: 78 / F Adm Date: 4 Loc: Room: Type: [facility] Attending Dr: Sunny Torres MD Copies [...] signed by Sunny Torres MD> 10/02/23 [id number] [facility] Work Phone: History general Narrative - [...] shoulder pain 1982 Hospitalization History migraines 1992 [facility] Other Hospital Discharge instructions Additional Instructions DISCHARGE [...] NOT operate machinery such as power tools, [employer] mowers, [employer] blowers, sewing machines, etc. for 24 hours. [...] up in the office - Office number [phone]. [facility] Work Phone: Summary Purpose Family [...] 1 Chronic diarrhea (K5 2.9) Referral Organization [facility] [employer] [facility] pipo Referring Provider First Name Patricia Referring Provider Last Name Abdoulaye Referring Provider Specialty [facility] Referred Organization [facility] Referred Address [address],[address] Referred Provider Specialty Gastroentero logy Referral Priority Routine Reason *FU 09/06 R foot p ain Diagnosis 1 Pain of left great t oe (M79.675) Referral Organization [facility] [employer] [facility] Referring Provider First Name Patricia Referring Provider Last Name Abdoulaye Referring Provider Specialty [facility] Referred Organization [facility] Referred Provider Odin Chong Referred Address [address] [place], [place],[address] Referred Provider Specialty Podiatry - S urgical [...] and content) DATE CREATED AUTHOR 05/09/[address] [facility] DATE CREATED AUTHOR AUTHOR'S ORGANIZ ATION 11/17/2022 [facility] DATE CREATED AUTHOR AUTHOR'S ORGANIZ ATION 09/09/2023 [facility] EPIC DATE CREATED AUTHOR AUTHOR'S ORGANIZ ATION 10/09/2023 [facility] DATE CREATED AUTHOR AUTHOR'S ORGANIZ ATION 10/18/2023 [facility] REASON FOR VISIT (unrecogniz ed section [...] BE BASED ON THE PRIMARY CLINICAL RECORDS. [facility] [email or web address] [facility] provides no warranty or guarantee of the accuracy or completeness of information in this document.
== END 2024-01-07 10:38 | disposition home or self-care (01) ==
LOC: EC 10:37
PROVIDERS: PCP Family Medicine; Visit Provider Podiatrist Foot & Ankle Surgery
DX: M79.672 Pain in left foot (principal); Z98.890 Other specified postprocedural states
CPT/HCPCS: 73630

== ENCOUNTER 2024-01-22 13:55 | Outpatient (OUT) | payer MEDICARE, SELFPAY ==
--- NOTE | 2024-01-22 | XR_ITS ---
The [address] [address] Patient Name: LOBO MURDOCK MRN: [id number] date: 1945 Sex: F Assigned Patient Location: Current Patient Location: Accession/Order Number: [id number] Exam Date: 01/22/2024 14:00 Report Date: 01/22/2024 15:52 At the request of: DANNY MEDINA Procedure: XR foot LT min 3V PROCEDURE: XR foot LT min 3V COMPARISON: 01/07/2024 HISTORY: LEFT FOOT PAIN FINDINGS: BONES:Stable first metatarsal-phalangeal joint fusion with a dorsal plate and multiple screws. No acute fracture, dislocation or mechanical failure. Degenerative changes of the midfoot forefoot junction with joint space narrowing and marginal osteophyte formation. SOFT TISSUES:Negative. No visible soft tissue swelling. EFFUSION:None visible. OTHER: Negative. XR/XR foot LT min 3V IMPRESSION: Stable postsurgical and degenerative changes Electronically authenticated by: LEIF SALAZAR Date: 01/22/2024 15:52
== END 2024-01-22 13:56 | disposition home or self-care (01) ==
LOC: EC 13:56
PROVIDERS: PCP Family Medicine; Visit Provider Podiatrist Foot & Ankle Surgery
DX: M79.672 Pain in left foot (principal); Z98.890 Other specified postprocedural states
CPT/HCPCS: 73630

== ENCOUNTER 2024-03-05 09:21 | Outpatient (OUT) | payer MEDICARE, SELFPAY ==
--- OUTSIDE RECORDS SUMMARY | 2024-03-05 09:25 | XMS_ITS | CCD ---
Author Organization [facility] CliniSyms Care Team Providers Care Retail Sales Director Name Role Phone PHYSICIAN, DEFAULT Admitting Unavailable PHYSICIAN, DEFAULT Attending Unavailable ALT-DANIEL, BRINDA Primary Care Unavailable OVIDIORAIADNA LINDSEY Admitting Unavailable OVIDIO, ARIADNA S Attending [...] MATTHEWS ., DR MASSIMO Cook Admitting Unavailable STNAFORD, DR PATRICIA Crain Primary Care Unavailable MATTHEWS [...] Unavailable Gieditis , Ara Loomis Attending Unavailable Gieditis , Ara Loomis Attending Unavailable Allergies Allergy Classification Reported Allergen(s) Allergy Type Date of Onset Reaction(s) Facility (8 sources) Calcitonin ([place]) *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 Propensity to adverse reactions Comment:severe weakness Ataxion Other Medications Current Medications Medication Drug Class(es) [...] Active Subcutaneous for 0 *Pick strength-form from Linki for eRX* Aug, Active diclofenac sodium 50 [...] day for 0 days *Pick strength-form from Linki for eRX* Oct, Active Multiple Vitamin (8 [...] Other aftercare (8 sources) 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; Translations: [manager terminal (current) use of bisphosphonates] Episodic Other connective [...] Test Name Value Interpretation Reference Range Facility [facility] 10-02-2023 L Specimen: [id number] Received: 10/02/23 Status: OJ Brice Num: [id number] Spec Type: Surgical Subm Dr: Sunny Torres MD Tissues: A GASTRIC FOR HP (GASTRIC BX R/O H.PYLORI) B Colon Biopsy (RANDOM COLON BX R/O MICROSCO) Procedures: HE/4, Gross/Micro L4/2, H PYLORI Age/ Patient Sex Location Account Attending Physician Lobo Murdock 78/F [id number] Sunny Torres MD SPEC NUM: [id number] RECD: 10/02/23 STATUS: OJ BRICE NUM: [id number] TEO: 10/02/[address]: Sunny Torres MD ENTERED: 10/02/[address] [facility] [address]: SPEC TYPE: Surgical [...] name, date of and random colon Specimen: [id number] Received: 10/02/23 Status: OJ Brice Num: [id number] Spec Type: Surgical Subm Dr: Sunny Torres MD Tissues: A GASTRIC FOR HP (GASTRIC BX R/O H.PYLORI) B Colon Biopsy (RANDOM COLON BX R/O MICROSCO) Procedures: HE/4, Gross/Micro L4/2, H PYLORI Patient: Lobo Murdock [id number] (Continued) Specimen: [id number] Received: 10/02/23 (Continued) Gross Description (Continued) Signed (signature on file) Patito Grimm MD 10/03/23 1430 Specimen: [id number] Received: 10/02/23 Status: OJ Brice Num: [id number] Spec Type: Surgical Subm Dr: Sunny Torres MD Tissues: A GASTRIC FOR HP (GASTRIC BX R/O H.PYLORI) B Colon Biopsy (RANDOM COLON BX R/O MICROSCO) Procedures: HE/4, Gross/Micro L4/2, H PYLORI Patient: Lobo Murdock [id number] (Continued) Specimen: [id number] Received: 10/02/23 (Continued) Gross Description (Continued) biopsy are 2 galvan translucent soft tissue fragments, 0.3 and 0.6 cm in greatest dimensions. Entirely submitted in one cassette labeled B1. CPT Codes [id number] Specimen: [id number] Received: 10/02/23-1022 Status: OJ Brice Num: [id number] Spec Type: Surgical Subm Dr: Sunny Torres MD Tissues: A GASTRIC FOR HP (GASTRIC BX R/O H.PYLORI) B Colon Biopsy (RANDOM COLON BX R/O MICROSCO) Procedures: HE/4, Gross/Micro L4/2, H PYLORI Patient: Lobo Murdock [id number] (Continued) Signed (signature on file) Patito Grimm MD 10/03/23 1430 [facility] CALCIUMon 10-03-2022 Calcium [Mass/Vol] 8.9 mg/dL Normal 8.5-10.1 [facility] Comment on above: Performed By: #### VALERIO MADRIGAL #### [facility] [address] [place] [address] Dr. Dang Grimm CREATININEon 10-03-2022 Creatinine [Mass/Vol] 1.03 mg/dL Critically high 0.55-1.02 [facility] Comment on above: Performed By: #### C [place], [place] #### [facility] [address] [place], [place] [address] Dr. Dang Grimm EGFR-AF DANISH >60 Normal >=60 [facility] Comment on above: Performed By: #### C [place]GIE, [place] #### [facility] [address] [place], [place] [address] Dr. Dang Grimm EGFR-NON AF DANISH 52 mL/min/1.73m2 Critically low >=60 The [facility] Comment on above: Performed By: #### C ANGIE, [place] #### [facility] [address] [place], [place] [address] Dr. Dang Grimm Covid-19 PCR ([facility])on SARS-CoV-2 (COVID-19) RNA GENARO+probe Ql (Unsp spec) Not detected Normal NOT DETECTED The [facility] Comment on above: Result Comment: This test is not yet approved or cleared by the [place] FDA. When there are no FDA-approved or cleared tests available, and other criteria are met, FDA can make tests available under an emergency access mechanism called an Emergency Use Authorization (EUA). The EUA for this test is supported by the [place] of Health and Human Service's (HHS's) declaration [...] SARS-CoV-2. Performed By: #### C VDTBH #### [facility] [address] [place] [address] [address] Dang Archer 04-20-2022 OCTAVIA PATTERN SPECKLED Normal The [facility] Comment on above: Result Comment: The [...] By: #### 1 0196 #### [facility] [address] OCTAVIA SCREEN 1:40 Normal <1:40,1:40 The [facility] Comment on above: Result Comment: Test performed using MELCHOR IFA OCTAVIA Hep-2 Test, a pre-standardized assay designed for the qualitative and semi-quantitative detection of antinuclear antibodies. Performed By: #### 1 0196 #### [address] C REACTIVE PROTEINon 022 CRP [Mass/Vol] 2.5 mg/L Normal 0.0-7.0 [facility] Comment on above: Performed By: #### 6 1405, 02626 #### [facility] [address] CBC COMPLETE BLOOD COUNTon 0 04-20-2022 Erythrocyte distribution width (RBC) [Ratio] 12.4 % Normal 11.5-15.0 The [facility] Comment on above: Performed By: #### 5 2516, 75377 #### [facility] [address] Hematocrit (Bld) [Volume fraction] 41.6 % Normal 36.0-45.0 [facility] Comment on above: Performed By: #### 5 5886, 38885 #### [facility] [address] Hemoglobin (Bld) [Mass/Vol] 13.7 g/dL Normal 12.0-15.0 [facility] Comment on above: Performed By: #### 5 5266, 22812 #### [facility] [address] [place] [address], [facility] MCH (RBC) [Entitic mass] 31.4 pg Normal 27.0-33.0 [facility] Comment on above: Performed By: #### 5 650, 50705 #### [facility] [address] [place] [address], [facility] MCHC (RBC) [Mass/Vol] 32.9 g/dL Normal 32.0-35.0 [facility] Comment on above: Performed By: #### 5 6505, 41605 #### [facility] [address] [facility] [place] [address], [facility] MCV (RBC) [Entitic vol] 95.2 fL Normal 82.0-98.0 [facility] Comment on above: Performed By: #### 5 6505, 07979 #### [facility] [address] [place] [address], [facility] Nucleated RBC/100 WBC (Bld) [Ratio] 0 % Normal 0-0 [facility] Comment on above: Performed By: #### 5 6505, 91274 #### [facility] [address] [place] [address], [facility] PLAT CNT 248 10*3/uL Normal 150-400 [facility] Comment on above: Performed By: #### 5 6505, 24702 #### [facility] [address] [place] [address], [facility] RBC (Bld) [#/Vol] 4.37 10*6/uL Normal 3.80-5.00 The [facility] Comment on above: Performed By: #### 5 650, 82986 #### [facility] [address] [place] [id number], [facility] WBC (Bld) [#/Vol] 5.54 10*3/uL Normal 4.00-10.60 The [facility] Comment on above: Performed By: #### 5 6506, 54048 #### [address] CERVICAL SPINE 4 OR 5 VIEWSo n 04-20-2022 CERVICAL SPINE 4 OR 5 VIEWS [facility] Department of Radiology [address] [place] [id number] ===== Patient Name: LOBO MURDOCK : 1945 Sex: F Age: Race: White Pt. Location: [facility] Patient Status: O Ordered Date: 04/20/2022 10:50:00 AM Completed Date: 04/20/2022 11:42 AM Requesting Provider: MICHAEL HAHN Attending Provider: ARIADNA NOLAN Report Copy To: Signs & Symptoms: M54.2 Cervicalgia I10 History: Perry Comments: Views (X-RAY, CERVICAL SPINE): AP, Lateral, [...] C3 Electronically signed: Christian Upton. Transcribed by: [email or web address], User Resident: Electronically Signed by: CHRISTIAN UPTON @ 04/20/2022 02:33 PM Normal [facility] Comment on above: Order Comment: Views (X-RAY, CERVICAL SPINE): AP, Lateral, Odontoid, Flexion, Extension COMP METABOLIC PANELon 04-20 Albumin [Mass/Vol] 4.1 g/dL Normal 3.5-5.7 [facility] Comment on above: Performed By: #### 3 5515, 67899, 28445 #### [facility] [address] [place] [address], [facility] ALKALINE PHOSPH 63 IU/L Normal 34-104 [facility] Comment on above: Performed By: #### 3 5515, 47282, 09549 #### [facility] [address] [facility] [place] [address], [facility] ALT [Catalytic activity/Vol] 15 U/L Normal 7-52 [facility] Comment on above: Performed By: #### 3 5515, 51763, 45130 #### [facility] [address] [facility] [place] [address], [facility] AST [Catalytic activity/Vol] 22 U/L Normal 13-39 [facility] Comment on above: Performed By: #### 3 5515, 38534, 73720 #### [facility] [address] [place] [address], [facility] Bilirubin [Mass/Vol] 0.5 mg/dL Normal 0.3-1.0 [facility] Comment on above: Performed By: #### 3 5515, 21512, 52531 #### [facility] [address] [place] [address], [facility] Calcium [Mass/Vol] 10.2 mg/dL Normal 8.6-10.3 [facility] Comment on above: Performed By: #### 3 5515, 57503, 08092 #### [facility] [address] [place] [address], [place] Chloride [Moles/Vol] 105 mmol/L Normal 98-107 [facility] Comment on above: Performed By: #### 3 5515, 01181, 17325 #### [facility] [address] [place] [address], [place] CO2 [Moles/Vol] 25 mmol/L Normal 21-31 [facility] Comment on above: Performed By: #### 3 5515, 06407, 37254 #### [facility] [address] [place] [address], [facility] Creatinine [Mass/Vol] 0.95 mg/dL Normal 0.60-1.20 [facility] Comment on above: Performed By: #### 3 5515, 12838, 76182 #### [facility] [address] [place] [address], [place] GFR/1.73 sq M.predicted among non-blacks MDRD (S/P/Bld) [Vol rate/Area] mL/min/{1.73_m2} Normal >60 [facility] Comment on above: Result Comment: The [facility]'s estimated glomerular filtration rate (eGFR) will [...] of individuals. Performed By: #### 3 5515, 15266, 39490 #### [facility] [address] [place] [address], [place] Glucose [Mass/Vol] 88 mg/dL Normal 70-100 [facility] Comment on above: Performed By: #### 3 5515, 40757, 92276 #### [facility] [address] [place] [address], [place] Potassium [Moles/Vol] 4.5 mmol/L Normal 3.5-5.1 [facility] Comment on above: Performed By: #### 3 5515, 79068, 47823 #### [facility] [address] [place] [address], [place] Protein [Mass/Vol] 6.8 g/dL Normal 6.0-8.3 [facility] Comment on above: Performed By: #### 3 5515, 69405, 86814 #### [facility] [address] [place] [address], [place] Sodium [Moles/Vol] 138 mmol/L Normal 136-145 [facility] Comment on above: Performed By: #### 3 5515, 74780, 65287 #### [facility] [address] [place] [address], [place] Urea nitrogen [Mass/Vol] 29 mg/dL High 7-25 [facility] Comment on above: Performed By: #### 3 5515, 23798, 91626 #### [facility] [address] [place] [address], [place] CYCLIC CITRULLINATED PEPTIDE [place] [id number] 04-20-2022 CYCLIC CIT PEP 2 Units Normal 0-19 [facility] Comment on above: Result Comment: INTE [...] be monitored and testing repeated. Performed By: [facility] [address] [place] [address] Radiologic Technician: Brett Tamez MD, PhD FERRITINon 04-20-2022 Ferritin [Mass/Vol] 43 ng/mL Normal 11-307 [facility] Comment on above: Performed By: #### 3 5515, 83391, 46580 #### [address] HAND LEFT 3 VWSon 04-20-2022 HAND LEFT 3 VWS [facility] Department of Radiology [address] [place] [id number] ===== Patient Name: LOBO MURDOCK : 1945 Sex: F Age: Race: White Pt. Location: [facility] Patient Status: O Ordered Date: 04/20/2022 10:50:00 AM Completed Date: 04/20/2022 11:42 AM Requesting Provider: MICHAEL HAHN Attending Provider: ARIADNA NOLAN Report Copy To: Signs & Symptoms: M79.641 Pain in right hand I10 History: Perry Comments: Evaluate Exam: HAND LEFT 3 [facility] ===== HAND LEFT 3 S [...] report. Electronically signed: Chelita Lazcano. Transcribed by: [email or web address], User Resident: NIRMALA MONGE Electronically Signed by: CHELITA LAZCANO @ 04/20/2022 01:29 PM I personally read this/these film(s) with this resident Normal The [facility] Comment on above: Order Comment: Evalu ate HAND RIGHT 3 [facility] 2 HAND RIGHT 3 [facility] Department of Radiology [address] [place] [phone] ===== Patient Name: LOBO MURDOCK : 1945 Sex: F Age: Race: White Pt. Location: [facility] Patient Status: O Ordered Date: 04/20/2022 10:50:00 AM Completed Date: 04/20/2022 11:42 AM Requesting Provider: MICHAEL HAHN Attending Provider: ARIADNA NOLAN Report Copy To: Signs & Symptoms: M79.641 Pain in right hand I10 History: Perry Comments: Evaluate Exam: HAND RIGHT 3 VWS [...] report. Electronically signed: Chelita Lazcano. Transcribed by: [email or web address], User Resident: NIRMALA MONGE Electronically Signed by: CHELITA LAZCANO @ 04/20/2022 01:43 PM I personally read this/these film(s) with this resident Normal [facility] Comment on above: Order Comment: Evalu ate RHEUMATOID FACTOR SERUMon RA <20 Normal 0-20 [facility] Comment on above: Performed By: #### 6 1405, 19601 #### [facility] [address] [place] [address], [facility] SEDIMENTATION RATEon 022 SED RATE 38 mm/hr High 0-20 [facility] Comment on above: Performed By: #### 5 6506, 14513 ####[facility] [place] [address], [facility] TIBC- INCLUDES IRONon 2021 FE SATURATION 30 % Normal 20-50 [facility] Comment on above: Performed By: #### 3 5515, 83343, 39153 #### [facility] [address] [place] [address], [facility] Iron [Mass/Vol] 115 ug/dL Normal 50-212 [facility] Comment on above: Performed By: #### 3 5515, 14630, 48250 #### [facility] [address] TIBC 378 mcg/dL Normal 250-450 [facility] Comment on above: Performed By: #### 3 5515, 65067, 05691 #### [facility] [address] [place] [address], [facility] UIBC 263 mcg/dL Normal 155-355 [facility] Comment on above: Performed By: #### 3 5515, 32964, 89956 #### [facility] [address] [place] [address], [facility] CALCIUMon 04-09-2022 Calcium [Mass/Vol] 9.6 mg/dL Normal 8.5-10.1 [facility] Comment on above: Performed By: #### VALERIO MADRIGAL #### [facility] [address] [place] [address] [address] Dang Grimm CREATININEon 04-09-2022 Creatinine [Mass/Vol] 1.07 mg/dL Critically high 0.55-1.02 [facility] Comment on above: Performed By: #### VALERIO MADRIGAL #### [facility] [address] [place], [place] [address] Dr. Dang Grimm EGFR-AF DANISH >60 Normal >=60 [facility] Comment on above: Performed By: #### C ANGIE, [place] #### [facility] [address] [place], [place] [address] Dr. Dang Grimm EGFR-NON AF DANISH 50 mL/min/1.73m2 Critically low >=60 [facility] Comment on above: Performed By: #### C ANGEI, [place] #### [facility] [address] [place], [place] [address] Dr. Dang Grimm Vital Signs Date Time Vital Sign Value Performing Clinician Facility 10-02-2023 09:55-0500 Diastolic blood pressure 67 mm[Hg] MD Patricia Stanford Work Phone: [facility] 10-02-2023 09:55-0500 Heart rate 80 /min MD Patricia Stanford Work Phone: [facility] 10-02-2023 09:55-0500 Respiratory rate 16 /min MD Patricia Stanford Work Phone: [facility] 10-02-2023 09:55-0500 SaO2% (BldA) [Mass fraction] 99 % MD Patricia Stanford Work Phone: [facility] 10-02-2023 09:55-0500 Systolic blood pressure 108 mm[Hg] MD Patricia Stanford Work Phone: [facility] 10-02-2023 07:07-0500 Body height 160.02 cm MD Patricia Stanford Work Phone: [facility] 10-02-2023 07:07-0500 Body weight 56.69 kg MD Patricia Stanford Work Phone: [facility] 08-30-2023 10:30-0500 Body height 157.48 cm Patricia Stanford Other [facility] 08-30-2023 10:30-0500 Body mass index (BMI) [Ratio] 21.73 kg/m2 Patricia Stanford Other [facility] Other 08-30-2023 10:30-0500 Body weight 53.89 kg Patricia Stanford Other [facility] Other 08-30-2023 10:30-0500 Body weight 53.88 kg MD Patricia Stanford Work Phone: [facility] 08-30-2023 10:30-0500 Diastolic blood pressure 74 mm[Hg] Patricia Stanford Other [facility] 08-30-2023 10:30-0500 Systolic blood pressure 122 mm[Hg] Patricia Stanford Other [facility] 08-21-2023 13:45-0500 Body height 157.48 cm Imad Asaad Other [facility] 08-21-2023 13:45-0500 Body mass index (BMI) [Ratio] 21.58 kg/m2 Imad Asaad Other [facility] Other 08-21-2023 13:45-0500 Body weight 53.52 kg Imad Asaad Other [facility] 07-15-2023 11:30-0500 Body height 157.48 cm Patricia Stanford Other [facility] 07-15-2023 11:30-0500 Body mass index (BMI) [Ratio] 21.73 kg/m2 Patricia Stanford Other [facility] Other 07-15-2023 11:30-0500 Body weight 53.89 kg Patricia Stanford Other [facility] Other 07-15-2023 11:30-0500 Body weight 53.88 kg MD Patricia Stanford Work Phone: [facility] 07-15-2023 11:30-0500 Diastolic blood pressure 78 mm[Hg] Patricia Stanford Other [facility] 07-15-2023 11:30-0500 Systolic blood pressure 148 mm[Hg] Patricia Stanford Other [facility] 07-06-2023 09:20-0500 Body height 157.48 cm MD Patricia Stanford Work Phone: [facility] 07-06-2023 09:20-0500 Body weight 55.51 kg MD Patricia Stanford Work Phone: [facility] Encounters Encounter Date Encounter Type Care Provider Facility Start: 10-14-2023 End: 10-15-2023 ambulatory Ara Maier MD Facility:[facility] Start: 10-04-2023 End: 10-04-2023 ambulatory Imad Asaad Other [facility] Other Start: 10-04-2023 Telephone encounter Imad Asaad [facility] Start: 10-02-2023 Non-patient / Non-visit MD Marlys Stanford Work Phone: [facility] Work Phone: Start: 10-02-2023 End: 10-02-2023 ambulatory Patricia Stanford Facility:[facility] Start: 10-02-2023 End: 10-02-2023 Admission to same day surgery center MD Patricia Stanford Work Phone: [facility] Work Phone: Start: 10-02-2023 End: 10-02-2023 ambulatory MD Patricia Stanford Work Phone: [facility] Work Phone: Start: 09-23-2023 End: 09-23-2023 ambulatory Patricia Stanford Other [facility] Other Start: 09-23-2023 Telephone encounter Patricia Stanford [facility] Start: 09-09-2023 End: 09-09-2023 ambulatory CARI Keith [facility] Not Available Start: 09-04-2023 End: 09-04-2023 ambulatory CARI Keith APLING Not Available Start: 09-03-2023 End: 09-03-2023 ambulatory Patricia Stanford Other [facility] Other Start: 09-03-2023 Telephone encounter Patricia Stanford [facility] Start: 08-30-2023 End: 08-30-2023 ambulatory Patricia Stanford Other [facility] Other Start: 08-30-2023 Office outpatient vi sit 15 minutes Patricia Stanford [facility] Start: 08-30-2023 End: 08-30-2023 Patient encounter procedure MD Patricia Stanford [facility] Start: 08-23-2023 End: 08-23-2023 ambulatory Patricia Stanford Other [facility] Other Start: 08-23-2023 Telephone encounter Patricia Stanford [facility] Start: 08-21-2023 End: 08-21-2023 ambulatory Imad Asaad Other [facility] Other Start: 08-21-2023 Office outpatient ne w 45 minutes Imad Asaad [facility] Start: 08-21-2023 End: 08-21-2023 Patient encounter procedure MD Patricia Stanford Work Phone: [facility] Work Phone: Start: 07-15-2023 End: 07-15-2023 ambulatory Patricia Stanford Other [facility] Other Start: 07-15-2023 Office outpatient vi sit 15 minutes Patricia Stanford [facility] Start: 07-15-2023 Telephone encounter Patricia Stanford [facility] Start: 07-15-2023 End: 07-15-2023 Patient encounter procedure MD Patricia Stanford Work Phone: [facility] Work Phone: Start: 07-06-2023 End: 07-06-2023 Patient encounter procedure MD Patricia Stanford Work Phone: [facility] Alfredo Work Phone: Start: 05-06-2023 End: 05-07-2023 ambulatory Ara Maier MD Facility:[facility] Start: 04-22-2023 End: 04-23-2023 ambulatory Ara Maier MD Facility:[facility] Start: 10-03-2022 End: 10-05-[address] PATRICIA STANFORD Facility:[facility] Start: 09-27-2022 End: 09-28-[address] MASSIMO MATTHEWS . Facility: Start: 09-11-2022 End: 09-11-[address] MASSIMO MATTHEWS . Facility:[facility] Start: 09-07-2022 End: 10-17-[address] MASSIMO MATTHEWS . Facility:[facility] Start: 09-04-2022 End: 09-05-[address] MASSIMO MATTHEWS . Facility:[facility] Start: 07-26-2022 Encounter for preprocedural laboratory examination DR MASSIMO MATTHEWS . [facility] Start: 07-24-2022 End: 07-24-[address] MASSIMO [...] 04-20-2022 End: 04-21-2022 ambulatory ARIADNA NOLAN Facility:[facility] Start: 04-09-2022 End: 04-10-[address] PATRICIA [place] Facility:[facility] Start: 02-27-2022 End: 02-28-2022 ambulatory DEFAULT PHYSICIAN Facility:[facility] Start: 02-22-2022 End: 02-23-[address] MASSIMO MATTHEWS . Facility:[facility] Start: 12-06-2021 ambulatory MICHELE SALDAÑA . Facility:[facility] Start: 11-30-2021 End: 12-01-[address] MASSIMO MATTHEWS . Facility:[facility] Start: 10-25-2020 Pre-procedure evaluation check Patricia Stanford Other [facility] Other Procedures Date Procedure Procedure Detail Performing Clinician Start: 10-02-2023 Esophagogastroduodenoscopy MD Patricia fox Work Phone: Start: 07-10-2017 Screening mammography Patricia Stanford Other Start: 07-19-2016 General examination of patient Patricia padilla Other Plan of Treatment Date Care Activity Detail Author Start: 10-02-2023 [facility] Immunizations Immunization Date Immunization Notes Care Provider Fa cility 05-17-2022 zoster vaccine, live Patricia Stanford Other [facility] 04-23-2022 influenza virus vaccine, split virus (incl. purified surface antigen) Patricia Stanford Other [facility] Other 04-23-2022 influenza virus vaccine, unspecified formulation MD Patricia Stanford Work Phone: [facility] 04-23-2022 pneumococcal polysaccharide vaccine, 23 valent Patricia Stanford Other [facility] 04-23-2022 tetanus toxoid, adsorbed Patricia Stanford Other [facility] 05-25-2021 influenza virus vaccine, split virus (incl. purified surface antigen) Patricia Stanford Other [facility] Other 05-25-2021 influenza virus vaccine, unspecified formulation MD Patricia Stanford Work Phone: [facility] 10-18-2020 COVID-19 Vaccine Moderna - Documentation Purposes Only Patricia Stanford Other [facility] 09-19-2020 COVID-19 Vaccine Moderna - Documentation Purposes Only Patricia Stanford Other [facility] 04-16-2020 influenza virus vaccine, split virus (incl. purified surface antigen) Patricia Stanford Other [facility] Other 04-16-2020 influenza virus vaccine, unspecified formulation MD Patricia Stanford Work Phone: [facility] 05-12-2019 influenza virus vaccine, split virus (incl. purified surface antigen) Patricia Stanford Other [facility] Other 05-12-2019 influenza virus vaccine, unspecified formulation MD Patricia Stanford Work Phone: [facility] 04-18-2018 influenza virus vaccine, split virus (incl. purified surface antigen) Patricia Stanford Other [facility] Other 04-18-2018 influenza virus vaccine, unspecified formulation MD Patricia Stanford Work Phone: [facility] 07-10-2017 pneumococcal conjuga te vaccine, 13 valent Patricia Stanford Other [facility] 04-18-2017 influenza virus vaccine, split virus (incl. purified surface antigen) Patricia Stanford Other [facility] Other 04-18-2017 influenza virus vaccine, unspecified formulation MD Patricia Stanford Work Phone: [facility] 05-09-2016 influenza virus vaccine, split virus (incl. purified surface antigen) Patricia Stanford Other [facility] Other 05-09-2016 influenza virus vaccine, unspecified formulation MD Patricia Stanford Work Phone: [facility] 05-27-2013 tetanus and diphther ia toxoids, adsorbed, preservative free, for adult use (5 Lf of tetanus toxoid and 2 Lf of diphtheria toxoid) Patricia Stanford Other [facility] 12-24-2011 pneumococcal polysaccharide vaccine, 23 valent Patriciaverna Stanford Other [facility] Payers Date Payer Category Payer Medicare 2022 Unknown 1959 Medicare [id number] 1958 Unknown [id number] 1945 Unknown [id number] 2.16.8 40.1.066873.3.579.2.647 1945 Unknown [id number] 2.16.8 40.1.243607.3.579.2.647 1945 Unknown [id number] 2.16.84 0.1.916934.3.579.2.593 1945 Unknown [id number] 2.16.84 0.1.827104.3.579.2.593 1945 Unknown [id number] 2.16.84 0.1.025029.3.579.2.593 1945 Unknown [id number] 2.16.84 0.1.823249.3.579.2.593 1946 Unknown [id number] 2.16.84 0.1.955410.3.579.2.593 1946 Unknown [id number] 2.16.84 0.1.662691.3.579.2.593 1946 Unknown [id number] 2.16.84 0.1.601744.3.579.2.593 1946 Unknown [id number] 2.16.84 0.1.856930.3.579.2.593 1946 Unknown [id number] 2.16.84 0.1.381850.3.579.2.593 1946 Unknown [id number] 2.16.84 0.1.389198.3.579.2.593 1946 Unknown [id number] 2.16.84 0.1.764604.3.579.2.593 1946 Unknown [id number] 2.16.84 0.1.391122.3.579.2.593 1945 Unknown [id number] 2.16.84 0.1.030693.3.579.2.593 1946 Unknown [id number] 2.16.84 0.1.742876.3.579.2.593 1945 Unknown [id number] 2.16.84 0.1.045509.3.579.2.1259 1945 Unknown [id number] 2.16.84 0.1.090927.3.579.2.1259 1945 Unknown [id number] 2.16. 840.1.763924.3.579.2.196 1945 Unknown [id number] 2.16. 840.1.838117.3.579.2.196 1945 Unknown [id number] 2.16. 840.1.495536.3.579.2.196 Medicare Medicare Outpatient [id number] [id number] Social History Date Type Detail Facility Unknown if ever smoked [facility] Other Sex Assigned At Sex Assigned At Bir th [facility] Other Start: 10-02-2023 Tobacco smoking status NHIS Never smoked tobacco (finding) [facility] Start: 1945 Sex Assigned At Female F [facility] Goals Date Patient Goal Desired Activity /State Clinical Notes 11-30-2021 to 10-02-2023 Note Date & Type Note Facility 10-02-2023 Procedure note [facility] 08-30-2023 Evaluation note Encounter Date Diagnosis [...] try OTC ones in meantime. Referral placed. [facility] Other 01-10-2024 Evaluation note* Encounter Date Diagnosis Assessment Notes Treatment Notes Treatment Clinical Notes Aug, GERD (gastroesophageal reflux disease) (ICD-10 - K21.9) Aug, Chronic diarrhea (ICD-10 - K52.9) Patient reports that her last colonoscopy was at the [facility] about 11 years ago and that she can not remember who preformed the procedure Aug, Abdominal pain (ICD-10 - R10.9) Aug, Weight loss, unintentional (ICD-10 - R63.4) Aug, Change in bowel habits (ICD-10 - R19.4) Patinet is advised to have a colonoscopy ordered, scheduled and prep instructions given today Risks and benefits of procedure explained to patient; patient verbalizes understanding. [facility] Other 12-04-2023 Evaluation note* Encounter Date Diagnosis [...] (ICD-10 - M81.0) Due for Dexa 08/2023 [facility] Other 02-16-2023 NoteCONSULTATION CONSULTATION DATE: 09/27/2022 HISTORY OF PRESENT ILLNESS: This is a 76-year-old female who returns to the clinic status post LES on 09/11/2022. The patient states she was afforded between 50-60% relief. Depending on her physical activity, determines her level of comfort. 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, housework and lifting greatly aggravate her [...] Patient is in agreement with this plan.[facility] [id number] NoteCONSULTATION CONSULTATION DATE: 09/04/2022 HISTORY OF PRESENT [...] patient understands and would like to proceed.[facility] [id number] NoteCONSULTATION CONSULTATION DATE: 07/11/2022 HISTORY OF PRESENT [...] followed up in the clinic post procedure.[facility] [id number] NoteCONSULTATION PROCEDURE DATE: 07/11/2022 PREOPERATIVE DIAGNOSIS: Bilateral [...] will be followed up in the clinic.[facility] 06-06-2022 NoteCONSULTATION CONSULTATION DATE: 06/06/2022 [...] pain returning. 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 The patient has not seen a call center representative in the past. REVIEW OF SYSTEMS, [...] mg q.h.s. A referral to rheumatology near [place] will be sent on her behalf and I highly encouraged her to seek consultation, particularly since she has a familial history of autoimmune diseases. The patient agrees with the plan of care and will be followed up in the office in three months' time. IF Signed and Approved by: MICHELE SALDAÑA . 03/02/2022 14:16:00[facility]04-21-2022 NoteCONSULTATION Consultation Date:11/30/2021 PREOPERATIVE DIAGNOSIS: Right gluteal [...] and Approved by: MICHELE SALDAÑA . 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 Lying down and using heat decrease her pain. Prior to the procedure, she was in a state of acute pain and was placed on a short term course of [place] 5/325 b.i.d. p.r.n. Patient states she only [...] of care and would like to proceed. [facility] Signed and Approved by: MICHELE SALDAÑA . 12/06/2021 16:15:00[facility] noteNo InformationN[employer] Other Evaluation noteNo assessment information available [facility] Work Phone: History and physical note Author Sunny Torres [facility] October 02, 2023 8:54am Note Date/Time October 02, 2023 8:54am [facility] [address] [place] [address] Gastroenterology H&P Signed Patient: Lobo Murdock MR#: [id number] : 1945 Acct:[id number] Age/Sex: 78 / F Adm Date: 4 Loc: Room: Type: [facility] Attending Dr: Sunny Torres MD Copies [...] signed by Sunny Torres MD> 10/02/23 0854 [facility] Work Phone: History general Narrative - [...] shoulder pain 1982 Hospitalization History migraines 1992 [facility] Other Hospital Discharge instructions Additional Instructions DISCHARGE [...] NOT operate machinery such as power tools, Lotedan mowers, ArriveBefore blowers, sewing machines, etc. for 24 hours. [...] up in the office - Office number [phone]. [facility] Work Phone: Summary Purpose Family [...] 1 Chronic diarrhea (K5 2.9) Referral Organization [facility] Referring Provider First Name Patricia Referring Provider Last Name Abdoulaye Referring Provider Specialty [facility] Referred Organization [facility] Referred Address [address],[address] Referred Provider Specialty Gastroentero logy Referral Priority Routine Reason *FU 09/06 R foot p ain Diagnosis 1 Pain of left great t oe (M79.675) Referral Organization [facility] Referring Provider First Name Patricia Referring Provider Last Name Abdoulaye Referring Provider Specialty [facility] Referred Organization [facility] Referred Provider Odin Chong Referred Address [address] [place], [place],[address] Referred Provider Specialty Podiatry - S urgical [...] and content) DATE CREATED AUTHOR 05/09/2022 [facility] DATE CREATED AUTHOR AUTHOR'S ORGANIZ ATION 11/17/2022 [facility] DATE CREATED AUTHOR AUTHOR'S ORGANIZ ATION 09/09/2023 [facility] EPIC DATE CREATED AUTHOR AUTHOR'S ORGANIZ ATION 10/09/2023 [facility] DATE CREATED AUTHOR AUTHOR'S ORGANIZ ATION 10/18/2023 [facility] REASON FOR VISIT (unrecogniz ed section [...] BE BASED ON THE PRIMARY CLINICAL RECORDS. [employer] [facility]. provides no warranty or guarantee of the accuracy or completeness of information in this document.
--- NOTE | 2024-03-05 09:43 | PM.CN ---
Consult Note: HPI Data of Consult Patient: known to practice within the last 3 years Consult date: 05/29/23 Requesting Physician: Melissa Soni NP Primary Care Provider: Patricia Nicolas MD Consult Narrative Reason for consult: f/u Narrative: Arianne Ko a pleasant 77 year old female presents for evaluation of chronic low back and right SIJ pain. Pain today 6/10 constant increasing to 9/10 with standing sitting lying and activity. Since last visit patient was evaluated by Dr Skelton and is having L4-S1 fusion 03/27/24. Currently taking tramadol 50mg BID PRN, tylenol, and diclofenac. denies side effects. cc:: CC: Melissa Soni NP Review of Systems ROS Status of ROS 10 or more systems reviewed and unremarkable except as noted in history and below Musculoskeletal Reports: back pain and joint pain PFSH PFSH Medical History (Updated 03/04/24 @ 10:19 by Shilpa Wall RN) DDD (degenerative disc disease) Postoperative pain ?G89.18 - Other acute postprocedural pain (ICD-10) Encounter for long-term opiate analgesic use ?Z79.891 - intermodal dispatcher (current) use of opiate analgesic (ICD-10) Sacroiliac joint pain ?M53.3 - Sacrococcygeal disorders, not elsewhere classified (ICD-10) Sacroiliac joint dysfunction of right side ?M53.3 - Sacrococcygeal disorders, not elsewhere classified (ICD-10) Muscle spasm ?M62.838 - Other muscle spasm (ICD-10) Bilateral sacroiliitis ?M46.1 - Sacroiliitis, not elsewhere classified (ICD-10) Lumbar radiculopathy ?M54.16 - Radiculopathy, lumbar region (ICD-10) Lumbar spondylosis ?M47.816 - Spondylosis without myelopathy or radiculopathy, lumbar region (ICD-10) Chronically on opiate therapy ?Z79.891 - intermodal dispatcher (current) use of opiate analgesic (ICD-10) Osteoporosis ?M81.0 - Age-related osteoporosis without current pathological fracture (ICD-10) Primary osteoarthritis, left ankle and foot ?M19.072 - Primary osteoarthritis, left ankle and foot (ICD-10) Bunionette of left foot ?M21.622 - Bunionette of left foot (ICD-10) Hallux valgus (acquired), left foot ?M20.12 - Hallux valgus (acquired), left foot (ICD-10) Back pain ?M54.9 - Dorsalgia, unspecified (ICD-10) Arthritis ?M19.90 - Unspecified osteoarthritis, unspecified site (ICD-10) Vertigo ?R42 - Dizziness and giddiness (ICD-10) Headache ?R51.9 - Headache, unspecified (ICD-10) Migraine ?G43.909 - Migraine, unspecified, not intractable, without status migrainosus (ICD-10) Multiple fractures ?T07.XXXA - Unspecified multiple injuries, initial encounter (ICD-10) Microscopic colitis ?K52.839 - Microscopic colitis, unspecified (ICD-10) Hiatal hernia ?K44.9 - Diaphragmatic hernia without obstruction or gangrene (ICD-10) Syncopal episodes (2019) ?R55 - Syncope and collapse (ICD-10) Osteopenia ?M85.80 - Other specified disorders of bone density and structure, unspecified site (ICD-10) Osteoarthritis ?M19.90 - Unspecified osteoarthritis, unspecified site (ICD-10) Neck pain ?M54.2 - Cervicalgia (ICD-10) Low back pain ?M54.50 - Low back pain, unspecified (ICD-10) Heartburn ?R12 - Heartburn (ICD-10) Acid reflux ?K21.9 - Gastro-esophageal reflux disease without esophagitis (ICD-10) Surgical History History of esophagogastroduodenoscopy (EGD) ?Z98.890 - Other specified postprocedural states (ICD-10) History of colonoscopy ?Z98.890 - Other specified postprocedural states (ICD-10) History of carpal tunnel release ?Z98.890 - Other specified postprocedural states (ICD-10) S/P cataract extraction and insertion of intraocular lens ?Z98.49 - Cataract extraction status, unspecified eye (ICD-10) ?Z96.1 - Presence of intraocular lens (ICD-10) History of repair of rotator cuff ?Z98.890 - Other specified postprocedural states (ICD-10) H/O radiofrequency ablation (RFA) of nerve of lumbar spine ?Z98.890 - Other specified postprocedural states (ICD-10) H/O shoulder surgery ?Z98.890 - Other specified postprocedural states (ICD-10) History of ear, nose, and throat (ENT) surgery ?Z98.890 - Other specified postprocedural states (ICD-10) H/O carpal tunnel repair ?Z98.890 - Other specified postprocedural states (ICD-10) H/O wrist surgery ?Z98.890 - Other specified postprocedural states (ICD-10) H/O section ?Z98.891 - History of uterine scar from previous surgery (ICD-10) Family History Other Family history of colon cancer Family history of diabetes mellitus Family history of heart disease Family history of ovarian cancer Family history of prostate cancer Family history of throat cancer Family history of uterine cancer Social History Within the past year, how often did you have a drink containing alcohol: monthly or less Smoking status: Never smoker Non-prescribed substance use: denies use Previous occupational history: retired Known occupational exposures/hazards: No Highest level of school completed/degree received: some college, no degree Meds Home Medications and Allergies Home Medications ?Medication ?Instructions ?Recorded ?Confirmed ?Type baclofen 10 mg tablet 10 mg PO .HS 04/10/23 11/25/23 History denosumab 60 mg/mL subcutaneous 60 mg subcut .[id number] 04/10/23 11/25/23 History syringe (Prolia) geriatric multivitamin-min 1 cap PO BID 04/10/23 11/25/23 History lidocaine 5 % topical cream 1 applic topical TID PRN pain 04/10/23 11/25/23 History magnesium 200 mg tablet 400 mg PO BID 04/10/23 11/25/23 History tramadol 50 mg tablet 50 mg PO BID PRN pain 04/10/23 11/25/23 History pantoprazole 40 mg tablet,delayed 40 mg PO DAILY 07/24/23 11/25/23 History release budesonide 3 mg 3 mg PO DAILY 10/14/23 11/25/23 History capsule,delayed,extended release acetaminophen 650 mg 650 mg PO Q12H PRN pain 11/11/23 11/25/23 History tablet,extended release calcium 325 mg-vit D3 12.5 1 tab PO DAILY 11/11/23 11/25/23 History mcg-zinc 2.75 mh-puywil-pjqachgqk tablet coenzyme Q10 100 mg capsule (Co 600 mg PO DAILY 11/11/23 11/25/23 History Q-10) collagen,hydrolysate 500 mg-biotin cap PO 11/11/23 History 800 mcg-ascorbic acid 50 mg capsule (Collagen 1500 Plus C) omega 0-jtw-pkj-fish oil 1,000 mg 4 cap PO DAILY 11/11/23 11/25/23 History (120 mg-180 mg) capsule (Fish Oil) alendronate 70 mg tablet (Fosamax) 70 mg PO QWEEK 12 weeks #12 tabs 11/25/23 Rx aspirin 81 mg tablet,delayed 81 mg PO BID 30 days #60 tabs 11/25/23 Rx release (Adult Low Dose Aspirin) cefadroxil 500 mg capsule 500 mg PO BID 7 days #14 caps 11/25/23 Rx cholecalciferol (vitamin D3) 125 125 mcg PO DAILY 90 days #90 caps 11/25/23 Rx mcg (5,000 unit) capsule ondansetron 4 mg disintegrating 4 mg PO Q8H PRN nausea and 11/25/23 Rx tablet vomiting 5 days #15 tabs sennosides 8.6 mg tablet (Senna 8.6 mg PO DAILY PRN constipation 7 11/25/23 Rx Laxative) days #7 tabs tizanidine 2 mg tablet 2 mg PO TID PRN muscle spasticity 11/25/23 Rx 7 days #21 tabs tramadol 50 mg tablet 50 mg PO Q6H PRN pain 7 days #28 11/25/23 Rx tabs tramadol 50 mg tablet 50 mg PO BID PRN pain #60 tabs 12/24/23 Rx Allergies Allergy/AdvReac Type Severity Reaction Status Date / Time No Known Drug Allergies Allergy Verified 11/11/23 09:13 Exam Constitutional Documenting provider has reviewed patient's vital signs: yes Common normals: no apparent distress, oriented x3, healthy appearing, alert and well nourished General appearance: cooperative HENNH Common normals: normocephalic, hearing grossly normal bilaterally and moist oral mucous membranes Head and scalp: normocephalic Eye Common normals: PERRL Pupil: PERRL Neck & C-Spine Common normals: full ROM General: normal visual inspection Chest Common normals: inspection of chest normal Respiratory Common normals: normal respiratory effort, no retractions and no use of accessory muscles Back & Pelvis Lumbar spine/lower back: normal to inspection, lumbar ROM normal and pain with ROM Sacroiliac joints: SI joint(s) abnormal (bilateral positive DEVON, thigh thrust, stephanie test. Worse on right side. ) SI joint details: tender to palpation (R>L) Extremity Common normals: normal to inspection and full ROM Neuro Common normals: oriented x3, CN's II-XII intact bilaterally, moves all extremities, no focal motor deficits, no sensory deficits noted and deep tendon reflexes 2+ bilaterally Sensorium/orientation: alert Gait (neuro): antalgic Motor exam: strength 5/5 throughout and no movement abnormalities noted Psych Common normals: mental status grossly normal, thought process normal, cooperative, affect normal, speech normal and activity/motor behavior normal Speech: normal speech Thought process: normal thought process Results Additional Findings Additional findings: If on a controlled substance or opioids, I have checked an [place]AR[place] report on this patient and there are no aberrancies noted in the prescribing history.??If on a controlled substance or opioid a drug screen was completed and reviewed within the last year, and if there has not been a drug screen completed we ordered one today to monitor higher risk, state monitored pain medication use. As part of providing excellent, safe, comprehensive care, the following was completed at our patient's visit: 1. A medication reconciliation and review to ensure accurate knowledge of current/active medications, including asking our patients to inform us about any lsqs-xue-nxowkme medications or herbal remedies/nutritional supplements/alternative remedies. 2. A review to specifically ensure our patients have had annual screening for screening for depression, screening for tobacco use, and screening for unhealthy alcohol use. For concerning screenings had a discussion with the patient, provided patient education, and recommended follow-up with primary care provider when appropriate. If patient noted with a risk of falling, they received education on strength, gait, and balance training to prevent future risk of falling. Assessment and Plan Assessment and Plan (1) Lumbar spondylosis: (2) Sacroiliac joint dysfunction of right side: (3) Sacroiliac joint pain: (4) Muscle spasm: (5) Encounter for long-term opiate analgesic use: Assessment and Plan: I feel these medications are improving the patient's quality of life and allow them to tolerate activities of daily living as well as participate in recreational activity.? The patient does not report intolerable side effects. The patient is NOT opioid naive and non-pharmacologic and non-opioid treatment has failed to significantly relieve the patient's pain and improve functionality. The patient has a diagnosis that is related to a somatic or visceral pain etiology. ? ?? I reviewed with the patient the potential risks and side effects with the use of? opioid medications including but not limited to respiratory depression,? sedation, and even . I verified the patient has access to naloxone should? these effects occur. I advised the patient to avoid the use of any other? sedation substances including alcohol, THC, and benzodiazepines while? taking opioid medications due to the risk of compounding side effects and? detrimental outcomes. I reviewed the TRIMMING MACHINE SET UP OPERATOR, pain treatment agreement, urine? drug screen, and opioid start talking forms. The patient was advised to let? their family know they had Naloxone in case they would need to administer? the medication.? ?? A drug screen was completed within the last year, and no aberrancies were noted regarding their use of controlled substances. The patient understands they are subject to the terms and conditions of the pain contract that they have signed. ? ?? I have checked an OARRS report on this patient today and there are no aberrancies noted in the prescribing history.? Plan continue tramadol 50mg BID PRN for moderate to severe pain continue f/u with Dr Skelton continue HEP as tolerated f/u 3 months, sooner if needed
== END 2024-03-05 09:22 | disposition home or self-care (01) ==
PROVIDERS: PCP Family Medicine; Visit Provider Nurse Practitioner
DX: M47.816 Spondylosis without myelopathy or radiculopathy, lumbar region (principal); M62.838 Other muscle spasm; M53.3 Sacrococcygeal disorders, not elsewhere classified
CPT/HCPCS: G0463

== ENCOUNTER 2024-03-05 12:23 | Outpatient (OUT) | payer MEDICARE, SELFPAY ==
--- OUTSIDE RECORDS SUMMARY | 2024-03-05 12:30 | XMS_ITS | CCD ---
Author Organization [facility] CliniSyms Care Team Providers Care Cylinder Honer Name Role Phone PHYSICIAN, DEFAULT Admitting Unavailable [...] MATTHEWS ., DR MASSIMO Cook Admitting Unavailable ASLDAÑA ., MICHELE Consulting Unavailable ABDOULAYE, DR PATRICIA [...] DR MASSIMO Cook Attending Unavailable ABDOULAYE, DR PATIRCIA Crain Consulting Unavailable STANFORD, DR PATRICIA Crain [...] of Onset Reaction(s) Facility (8 sources) Calcitonin ([place]) *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 Propensity to adverse reactions Comment:severe weakness [facility] Other Medications Current Medications Medication Drug Class(es) [...] Active Subcutaneous for 0 *Pick strength-form from Zoondy for eRX* Aug, Active diclofenac sodium 50 [...] day for 0 days *Pick strength-form from Zoondy for eRX* Oct, Active Multiple Vitamin (8 [...] Test Name Value Interpretation Reference Range Facility [facility] 10-02-2023 L Specimen: [id number] Received: 10/02/23 Status: OJ Brice Num: [id number] Spec Type: Surgical Subm Dr: Sunny Torres MD Tissues: A GASTRIC FOR HP (GASTRIC BX R/O H.PYLORI) B Colon Biopsy (RANDOM COLON BX R/O MICROSCO) Procedures: HE/4, Gross/Micro L4/2, H PYLORI Age/ Patient Sex Location Account Attending Physician Lobo Murdock 78/F [id number] Sunny Torres MD SPEC NUM: [id number] RECD: 10/02/23 STATUS: OJ BRICE NUM: [id number] TEO: 10/02/[address]: Sunny Torres MD ENTERED: 10/02/23 [facility] DR: SPEC TYPE: Surgical DEPT: S [...] name, date of and random colon Specimen: [id number] Received: 10/02/23 Status: OJ Brice Num: [id number] Spec Type: Surgical Subm Dr: Sunny Torres MD Tissues: A GASTRIC FOR HP (GASTRIC BX R/O H.PYLORI) B Colon Biopsy (RANDOM COLON BX R/O MICROSCO) Procedures: HE/4, Gross/Micro L4/2, H PYLORI Patient: Lobo Murdock [id number] (Continued) Specimen: [id number] Received: 10/02/23 (Continued) Gross Description (Continued) Signed (signature on file) Patito Grimm MD 10/03/23 1430 Specimen: [id number] Received: 10/02/23 Status: OJ Brice Num: [id number] Spec Type: Surgical Subm Dr: Sunny Torres MD Tissues: A GASTRIC FOR HP (GASTRIC BX R/O H.PYLORI) B Colon Biopsy (RANDOM COLON BX R/O MICROSCO) Procedures: HE/4, Gross/Micro L4/2, H PYLORI Patient: Lobo Murdock [id number] (Continued) Specimen: [id number] Received: 10/02/23 (Continued) Gross Description (Continued) biopsy are 2 galvan translucent soft tissue fragments, 0.3 and 0.6 cm in greatest dimensions. Entirely submitted in one cassette labeled B1. CPT Codes 23082q1 82275 Specimen: [id number] Received: 10/02/23-1022 Status: OJ Brice Num: [id number] Spec Type: Surgical Subm Dr: Sunny Torres MD Tissues: A GASTRIC FOR HP (GASTRIC BX R/O H.PYLORI) B Colon Biopsy (RANDOM COLON BX R/O MICROSCO) Procedures: HE/4, Gross/Micro L4/2, H PYLORI Patient: Lobo Murdock [id number] (Continued) Signed (signature on file) Patito Grimm MD 10/03/23 1430 [facility] CALCIUMon 10-03-2022 Calcium [Mass/Vol] 8.9 mg/dL Normal 8.5-10.1 The [facility] Comment on above: Performed By: #### VALERIO MADRIGAL #### [facility] [address] [place] [address] Dr. Dang Grimm CREATININEon 10-03-2022 Creatinine [Mass/Vol] 1.03 mg/dL Critically high 0.55-1.02 [facility] Comment on above: Performed By: #### C [place], [place] #### [facility] [address], [place] [address] Dr. Dang Grimm EGFR-AF RWANDAN >60 Normal >=60 The [facility] Comment on above: Performed By: #### C [place]GIE, [place] #### [facility] [address], [place] [address] Dr. Dang Grimm EGFR-NON AF RWANDAN 52 mL/min/1.73m2 Critically low >=60 [facility] Comment on above: Performed By: #### C ANGIE, [place] #### [facility] [address], [place] [address] Dr. Dang Grimm Covid-19 PCR ([facility])on SARS-CoV-2 (COVID-19) RNA GENARO+probe Ql (Unsp spec) Not detected Normal NOT DETECTED The [facility] Comment on above: Result Comment: This test is not yet approved or cleared by the [place] FDA. When there are no FDA-approved or cleared tests available, and other criteria are met, FDA can make tests available under an emergency access mechanism called an Emergency Use Authorization (EUA). The EUA for this test is supported by the [place] of Health and Human Service's (HHS's) declaration [...] SARS-CoV-2. Performed By: #### C VDTBH #### [facility] [address] [place] [address] [address] Dang Archer 04-20-2022 OCTAVIA PATTERN SPECKLED Normal The [facility] [...] authority. Performed By: #### 1 0196 #### [facility] [address] OCTAVIA SCREEN 1:40 Normal <1:40,1:40 [facility] Comment on above: Result Comment: Test performed using MELCHOR IFA OCTAVIA Hep-2 Test, a pre-standardized assay designed for the qualitative and semi-quantitative detection of antinuclear antibodies. Performed By: #### 1 0196 #### [address] C REACTIVE PROTEINon 022 CRP [Mass/Vol] 2.5 mg/L Normal 0.0-7.0 The [facility] Comment on above: Performed By: #### 6 1405, 25813 #### [facility] [address] CBC COMPLETE BLOOD COUNTon 0 04-20-2022 Erythrocyte distribution width (RBC) [Ratio] 12.4 % Normal 11.5-15.0 [facility] Comment on above: Performed By: #### 5 2466, 00108 #### [facility] [address] Hematocrit (Bld) [Volume fraction] 41.6 % Normal 36.0-45.0 [facility] Comment on above: Performed By: #### 5 3286, 86920 #### [facility] [address] Hemoglobin (Bld) [Mass/Vol] 13.7 g/dL Normal 12.0-15.0 [facility] Comment on above: Performed By: #### 5 2676, 88097 #### [facility] [address] [place] [address], [facility] MCH (RBC) [Entitic mass] 31.4 pg Normal 27.0-33.0 [facility] Comment on above: Performed By: #### 5 650, 03037 #### [facility] [address] [place] [address], [facility] MCHC (RBC) [Mass/Vol] 32.9 g/dL Normal 32.0-35.0 [facility] Comment on above: Performed By: #### 5 6505, 51303 #### [facility] [address] [facility] [place] [address], [facility] MCV (RBC) [Entitic vol] 95.2 fL Normal 82.0-98.0 [facility] Comment on above: Performed By: #### 5 6505, 70541 #### [facility] [address] [facility] [place] [address], [facility] Nucleated RBC/100 WBC (Bld) [Ratio] 0 % Normal 0-0 [facility] Comment on above: Performed By: #### 5 6505, 91792 #### [facility] [address] [place] [address], [facility] PLAT CNT 248 10*3/uL Normal 150-400 The [facility] Comment on above: Performed By: #### 5 6505, 95961 #### [facility] [address] [place] [address], [facility] RBC (Bld) [#/Vol] 4.37 10*6/uL Normal 3.80-5.00 The [facility] Comment on above: Performed By: #### 5 650, 76863 #### [facility] [address] [place] [id number], [facility] WBC (Bld) [#/Vol] 5.54 10*3/uL Normal 4.00-10.60 The [facility] Comment on above: Performed By: #### 5 6506, 42304 #### [address] CERVICAL SPINE 4 OR 5 VIEWSo n 04-20-2022 CERVICAL SPINE 4 OR 5 VIEWS [facility] Department of Radiology [address] [place] [id number] ===== Patient Name: LOBO MURDOCK : 1945 Sex: F Age: Race: White Pt. Location: [facility] Patient Status: O Ordered Date: 04/20/2022 10:50:00 AM Completed Date: 04/20/2022 11:42 AM Requesting Provider: MICHAEL HAHN Attending Provider: ARIADNA NOLAN Report Copy To: Signs & Symptoms: M54.2 Cervicalgia I10 History: Browns Comments: Views (X-RAY, CERVICAL SPINE): AP, Lateral, [...] C3 Electronically signed: Christian Upton. Transcribed by: [email or web address], User Resident: Electronically Signed by: CHRISTIAN UPTON @ 04/20/2022 02:33 PM Normal [facility] Comment on above: Order Comment: Views (X-RAY, CERVICAL SPINE): AP, Lateral, Odontoid, Flexion, Extension COMP METABOLIC PANELon 04-20 Albumin [Mass/Vol] 4.1 g/dL Normal 3.5-5.7 [facility] Comment on above: Performed By: #### 3 5515, 66209, 26572 #### [facility] [address] [place] [address], [facility] ALKALINE PHOSPH 63 IU/L Normal 34-104 [facility] Comment on above: Performed By: #### 3 5515, 44239, 26434 #### [facility] [address] [facility] [place] [address], [facility] ALT [Catalytic activity/Vol] 15 U/L Normal 7-52 [facility] Comment on above: Performed By: #### 3 5515, 84258, 48526 #### [facility] [address] [facility] [place] [address], [facility] AST [Catalytic activity/Vol] 22 U/L Normal 13-39 [facility] Comment on above: Performed By: #### 3 5515, 03497, 72678 #### [facility] [address] [place] [address], [facility] Bilirubin [Mass/Vol] 0.5 mg/dL Normal 0.3-1.0 [facility] Comment on above: Performed By: #### 3 5515, 33272, 26611 #### [facility] [address] [place] [address], [facility] Calcium [Mass/Vol] 10.2 mg/dL Normal 8.6-10.3 [facility] Comment on above: Performed By: #### 3 5515, 93898, 03846 #### [facility] [address] [place] [address], [place] Chloride [Moles/Vol] 105 mmol/L Normal 98-107 [facility] Comment on above: Performed By: #### 3 5515, 98617, 65672 #### [facility] [address] [place] [address], [place] CO2 [Moles/Vol] 25 mmol/L Normal 21-31 [facility] Comment on above: Performed By: #### 3 5515, 84330, 98624 #### [facility] [address] [place] [address], [facility] Creatinine [Mass/Vol] 0.95 mg/dL Normal 0.60-1.20 [facility] Comment on above: Performed By: #### 3 5515, 91965, 80523 #### [facility] [address] [place] [address], [place] GFR/1.73 sq M.predicted among non-blacks MDRD (S/P/Bld) [Vol rate/Area] mL/min/{1.73_m2} Normal >60 [facility] Comment on above: Result Comment: [facility]'s estimated glomerular filtration rate (eGFR) will [...] of individuals. Performed By: #### 3 5515, 08327, 54985 #### [facility] [address] [place] [address], [place] Glucose [Mass/Vol] 88 mg/dL Normal 70-100 The [facility] Comment on above: Performed By: #### 3 5515, 43306, 62904 #### [facility] [address] [place] [address], [place] Potassium [Moles/Vol] 4.5 mmol/L Normal 3.5-5.1 [facility] Comment on above: Performed By: #### 3 5515, 19580, 59777 #### [facility] [address] [place] [address], [place] Protein [Mass/Vol] 6.8 g/dL Normal 6.0-8.3 [facility] Comment on above: Performed By: #### 3 5515, 97876, 54373 #### [facility] [address] [place] [address], [place] Sodium [Moles/Vol] 138 mmol/L Normal 136-145 [facility] Comment on above: Performed By: #### 3 5515, 00198, 38443 #### [facility] [address] [place] [address], [place] Urea nitrogen [Mass/Vol] 29 mg/dL High 7-25 [facility] Comment on above: Performed By: #### 3 5515, 71893, 97022 #### [facility] [address] [place] [address], [place]INATED PEPTIDE [place] [id number] 04-20-2022 CYCLIC CIT PEP 2 Units Normal 0-19 The [facility] Comment on above: Result Comment: INTE RPRETIVE [...] be monitored and testing repeated. Performed By: [employer] [address] [place] [address] Sleever: Brett Tamez MD, PhD FERRITINon 04-20-2022 Ferritin [Mass/Vol] 43 ng/mL Normal 11-307 [facility] Comment on above: Performed By: #### 3 5515, 45790, 23849 #### [address] HAND LEFT 3 VWSon 04-20-2022 HAND LEFT 3 VWS [facility] Department of Radiology [address] [place] [id number] ===== Patient Name: LOBO MURDOCK : 1945 Sex: F Age: Race: White Pt. Location: [facility] Patient Status: O Ordered Date: 04/20/2022 10:50:00 AM Completed Date: 04/20/2022 11:42 AM Requesting Provider: MICHAEL HAHN Attending Provider: ARIADNA NOLAN Report Copy To: Signs & Symptoms: M79.641 Pain in right hand I10 History: Browns Comments: Evaluate Exam: HAND LEFT 3 [facility] ===== HAND LEFT 3 S 04/20/2022 [...] report. Electronically signed: Chelita Lazcano. Transcribed by: [email or web address], User Resident: NIRMALA MONGE Electronically Signed by: CHELITA LAZCANO @ 04/20/2022 01:29 PM I personally read this/these film(s) with this resident Normal [facility] Comment on above: Order Comment: Evalu ate HAND RIGHT 3 [facility] [place] [facility] 2 HAND RIGHT 3 [facility] Department of Radiology [address] [place] [id number] ===== Patient Name: LOBO MURDOCK : 1945 Sex: F Age: Race: White Pt. Location: [facility] Patient Status: O Ordered Date: 04/20/2022 10:50:00 AM Completed Date: 04/20/2022 11:42 AM Requesting Provider: MICHAEL HAHN Attending Provider: ARIADNA NOLAN Report Copy To: Signs & Symptoms: M79.641 Pain in right hand I10 History: Browns Comments: Evaluate Exam: HAND RIGHT 3 VWS [...] report. Electronically signed: Chelita Lazcano. Transcribed by: [email or web address], User Resident: NIRMALA MONGE Electronically Signed by: CHELITA LAZCANO @ 04/20/2022 01:43 PM I personally read this/these film(s) with this resident Normal [facility] Comment on above: Order Comment: Evalu ate RHEUMATOID FACTOR SERUMon RA <20 Normal 0-20 [facility] Comment on above: Performed By: #### 6 1405, 17983 #### [facility] [address] [place] [address], [facility] SEDIMENTATION RATEon 022 SED RATE 38 mm/hr High 0-20 [facility] Comment on above: Performed By: #### 5 6506, 08365 ####[facility] [place] [address], [facility] TIBC- INCLUDES IRONon 2021 FE SATURATION 30 % Normal 20-50 [facility] Comment on above: Performed By: #### 3 5515, 46730, 55177 #### [facility] [address] [place] [address], [facility] Iron [Mass/Vol] 115 ug/dL Normal 50-212 The [facility] Comment on above: Performed By: #### 3 5515, 72875, 00829 #### [facility] [address] TIBC 378 mcg/dL Normal 250-450 [facility] Comment on above: Performed By: #### 3 5515, 05144, 12488 #### [facility] [address] [place] [address], [facility] UIBC 263 mcg/dL Normal 155-355 [facility] Comment on above: Performed By: #### 3 5515, 97051, 11856 #### [facility] [address] [place] [address], [facility] CALCIUMon 04-09-2022 Calcium [Mass/Vol] 9.6 mg/dL Normal 8.5-10.1 [facility] Comment on above: Performed By: #### VALERIO MADRIGAL #### [facility] [address] [place] [address] [address] Dang Grimm CREATININEon 04-09-2022 Creatinine [Mass/Vol] 1.07 mg/dL Critically high 0.55-1.02 [facility] Comment on above: Performed By: #### VALERIO MADRIGAL #### [facility] [address], [place] [address] Dr. Dang Grimm EGFR-AF RWANDAN >60 Normal >=60 [facility] Comment on above: Performed By: #### C [place], [place] #### [facility] [address], [place] [address] Dr. Dang Grimm EGFR-NON AF RWANDAN 50 mL/min/1.73m2 Critically low >=60 [facility] Comment on above: Performed By: #### C ANGIE, [place] #### [facility] [address], [place] [address] Dr. Dang Grimm Vital Signs Date Time Vital Sign Value Performing Clinician Facility 10-02-2023 09:55-0500 Diastolic blood pressure 67 mm[Hg] MD Patricia Stanford Work Phone: [facility] 10-02-2023 09:55-0500 Heart rate 80 /min MD Patricia Stanford Work Phone: [facility] 10-02-2023 09:55-0500 Respiratory rate 16 /min MD Patricia Stanford Work Phone: [facility] 10-02-2023 09:55-0500 SaO2% (BldA) [Mass fraction] 99 % MD Patricia Stanford Work Phone: [facility] 10-02-2023 09:55-0500 Systolic blood pressure 108 mm[Hg] MD Patricia Stanford Work Phone: [facility] 10-02-2023 07:07-0500 Body height 160.02 cm MD Patricia Stanford Work Phone: [facility] 10-02-2023 07:07-0500 Body weight 56.69 kg MD Patricia Stanford Work Phone: [facility] 08-30-2023 10:30-0500 Body height 157.48 cm Patricia Stanford Other [facility] 08-30-2023 10:30-0500 Body mass index (BMI) [Ratio] 21.73 kg/m2 Patricia Stanford Other [facility] Other 08-30-2023 10:30-0500 Body weight 53.89 kg Patricia Stanford Other [facility] Other 08-30-2023 10:30-0500 Body weight 53.88 kg MD Patricia Stanford Work Phone: [facility] 08-30-2023 10:30-0500 Diastolic blood pressure 74 mm[Hg] Patricia Stanford Other [facility] 08-30-2023 10:30-0500 Systolic blood pressure 122 mm[Hg] Patricia Stanford Other [facility] 08-21-2023 13:45-0500 Body height 157.48 cm Imad Asaad Other [facility] 08-21-2023 13:45-0500 Body mass index (BMI) [Ratio] 21.58 kg/m2 Imad Asaad Other [facility] Other 08-21-2023 13:45-0500 Body weight 53.52 kg Imad Asaad Other [facility] 07-15-2023 11:30-0500 Body height 157.48 cm Patricia Stanford Other [facility] 07-15-2023 11:30-0500 Body mass index (BMI) [Ratio] 21.73 kg/m2 Patricia Stanford Other [facility] Other 07-15-2023 11:30-0500 Body weight 53.89 kg Patricia Stanford Other [facility] Other 07-15-2023 11:30-0500 Body weight 53.88 kg MD Patricia Stanford Work Phone: [facility] 07-15-2023 11:30-0500 Diastolic blood pressure 78 mm[Hg] Patricia Stanford Other [facility] 07-15-2023 11:30-0500 Systolic blood pressure 148 mm[Hg] Patricia Stanford Other [facility] 07-06-2023 09:20-0500 Body height 157.48 cm MD Patricia Stanford Work Phone: [facility] 07-06-2023 09:20-0500 Body weight 55.51 kg MD Patricia Stanford Work Phone: [facility] Encounters Encounter Date Encounter Type Care Provider Facility Start: 10-14-2023 End: 10-15-2023 ambulatory Ara Maier MD Facility:[facility] Start: 10-04-2023 End: 10-04-2023 ambulatory Imad Asaad Other [facility] Other Start: 10-04-2023 Telephone encounter Imad Asaad [facility] Start: 10-02-2023 Non-patient / Non-visit MD Marlys Stanford Work Phone: [facility] Work Phone: Start: 10-02-2023 End: 10-02-2023 ambulatory Patricia Stanford Facility:[facility] Start: 10-02-2023 End: 10-02-2023 Admission to same day surgery center MD Patricia Stanford Work Phone: [facility] Work Phone: Start: 10-02-2023 End: 10-02-2023 ambulatory MD Patricia Stanford Work Phone: [facility] Work Phone: Start: 09-23-2023 End: 09-23-2023 ambulatory Patricia Stanford Other [facility] Other Start: 09-23-2023 Telephone encounter Patricia Stanford [facility] Start: 09-09-2023 End: 09-09-2023 ambulatory CARI Keith APLING Not Available Start: 09-04-2023 End: 09-04-2023 ambulatory CARI Keith APLING Not Available Start: 09-03-2023 End: 09-03-2023 ambulatory Patricia Stanford Other [facility] Other Start: 09-03-2023 Telephone encounter Patricia Stanford [facility] Start: 08-30-2023 End: 08-30-2023 ambulatory Patricia Stanford Other [facility] Other Start: 08-30-2023 Office outpatient vi sit 15 minutes Patricia Stanford [facility] Start: 08-30-2023 End: 08-30-2023 Patient encounter procedure MD [facility] Stanford [facility] Start: 08-23-2023 End: 08-23-2023 ambulatory Patricia Stanford Other [facility] Other Start: 08-23-2023 Telephone encounter Patricia Stanford [facility] Start: 08-21-2023 End: 08-21-2023 ambulatory Imad Asaad Other [facility] Other Start: 08-21-2023 Office outpatient ne w 45 minutes Imad Asaad [facility] Start: 08-21-2023 End: 08-21-2023 Patient encounter procedure MD Patricia Stanford Work Phone: [facility] Work Phone: Start: 07-15-2023 End: 07-15-2023 ambulatory Patricia Stanford Other [facility] Other Start: 07-15-2023 Office outpatient vi sit 15 minutes Patricia Stanford [facility] Start: 07-15-2023 Telephone encounter Patricia Stanford [facility] Start: 07-15-2023 End: 07-15-2023 Patient encounter procedure MD Patricia Stanford Work Phone: [facility] Work Phone: Start: 07-06-2023 End: 07-06-2023 Patient encounter procedure MD Patricia Stanford Work Phone: [facility] Alfredo Work Phone: Start: 05-06-2023 End: 05-07-2023 ambulatory Ara Maier MD Facility:[facility] Start: 04-22-2023 End: 04-23-2023 ambulatory Ara Maier MD Facility:[facility] Start: 10-03-2022 End: 10-05-[address] PATRICIA STANFORD Facility:[facility] Start: 09-27-2022 End: 09-28-[address] MASSIMO MATTHEWS . Facility: Start: 09-11-2022 End: 09-11-[address] MASSIMO MATTHEWS . Facility:[facility] Start: 09-07-2022 End: 10-17-[address] MASSIMO MATTHEWS . Facility:[facility] Start: 09-04-2022 End: 09-05-[address] MASSIMO MATTHEWS . Facility:[facility] Start: 07-26-2022 Encounter for preprocedural laboratory examination DR MASSIMO MATTHEWS . [facility] Start: 07-24-2022 End: 07-24-[address] [...] Start: 04-20-2022 End: 04-21-2022 ambulatory ARIADNA NOLAN Facility:[facility] Start: 04-09-2022 End: 04-10-[address] PATRICIA STANFORD Facility:[facility] Start: 02-27-2022 End: 02-28-2022 ambulatory DEFAULT PHYSICIAN Facility:[facility] Start: 02-22-2022 End: 02-23-[address] MASSIMO MATTHEWS . Facility:[facility] Start: 12-06-2021 ambulatory MICHELE SALDAÑA . Facility:[facility] Start: 11-30-2021 End: 12-01-[address] MASSIMO MATTHEWS . Facility:[facility] Start: 10-25-2020 Pre-procedure evaluation check Patricia Stanford Other [facility] [facility] Other Procedures Date Procedure Procedure Detail Performing Clinician Start: 10-02-2023 Esophagogastroduodenoscopy MD Patricia fox Work Phone: Start: 07-10-2017 Screening mammography Patricia Stanford Other Start: 07-19-2016 General examination of patient Patricia padilla Other Plan of Treatment Date Care Activity Detail Author Start: 10-02-2023 [facility] Immunizations Immunization Date Immunization Notes Care Provider Fa cility 05-17-2022 zoster vaccine, live Patricia Stanford Other [facility] 04-23-2022 influenza virus vaccine, split virus (incl. purified surface antigen) Patricia Stanford Other [facility] Other 04-23-2022 influenza virus vaccine, unspecified formulation MD Patricia Stanford Work Phone: [facility] 04-23-2022 pneumococcal polysaccharide vaccine, 23 valent Patricia Stanford Other [facility] 04-23-2022 tetanus toxoid, adsorbed Patricia Stanford Other [facility] 05-25-2021 influenza virus vaccine, split virus (incl. purified surface antigen) Patricia Stanford Other [facility] Other 05-25-2021 influenza virus vaccine, unspecified formulation MD Patricia Stanford Work Phone: [facility] 10-18-2020 COVID-19 Vaccine Moderna - Documentation Purposes Only Patricia Stanford Other [facility] 09-19-2020 COVID-19 Vaccine Moderna - Documentation Purposes Only Patricia Stanford Other [facility] 04-16-2020 influenza virus vaccine, split virus (incl. purified surface antigen) Patricia Stanford Other [facility] Other 04-16-2020 influenza virus vaccine, unspecified formulation MD Patricia Stanford Work Phone: [facility] 05-12-2019 influenza virus vaccine, split virus (incl. purified surface antigen) Patricia Stanford Other [facility] Other 05-12-2019 influenza virus vaccine, unspecified formulation MD Patricia Stanford Work Phone: [facility] 04-18-2018 influenza virus vaccine, split virus (incl. purified surface antigen) Patricia Stanford Other [facility] Other 04-18-2018 influenza virus vaccine, unspecified formulation MD Patricia Stanford Work Phone: [facility] 07-10-2017 pneumococcal conjuga te vaccine, 13 valent Patricia Stanford Other [facility] 04-18-2017 influenza virus vaccine, split virus (incl. purified surface antigen) Patricia Stanford Other [facility] Other 04-18-2017 influenza virus vaccine, unspecified formulation MD Patricia Stanford Work Phone: [facility] 05-09-2016 influenza virus vaccine, split virus (incl. purified surface antigen) Patricia Stanford Other [facility] Other 05-09-2016 influenza virus vaccine, unspecified formulation MD Patricia Stanford Work Phone: [facility] 05-27-2013 tetanus and diphther ia toxoids, adsorbed, preservative free, for adult use (5 Lf of tetanus toxoid and 2 Lf of diphtheria toxoid) Patricia Stanford Other [facility] 12-24-2011 pneumococcal polysaccharide vaccine, 23 valent Patriciaverna Stanford Other [facility] Payers Date Payer Category Payer Medicare 2022 Unknown 1959 Medicare [id number] 1959 Unknown [id number] 1945 Unknown [id number] 2.16.8 40.1.494463.3.579.2.647 1945 Unknown [id number] 2.16.8 40.1.845651.3.579.2.647 1945 Unknown [id number] 2.16.84 0.1.863332.3.579.2.593 1945 Unknown [id number] 2.16.84 0.1.656856.3.579.2.593 1945 Unknown [id number] 2.16.84 0.1.388301.3.579.2.593 1945 Unknown [id number] 2.16.84 0.1.237442.3.579.2.593 1946 Unknown [id number] 2.16.84 0.1.963189.3.579.2.593 1946 Unknown [id number] 2.16.84 0.1.553411.3.579.2.593 1946 Unknown [id number] 2.16.84 0.1.360104.3.579.2.593 1946 Unknown [id number] 2.16.84 0.1.936289.3.579.2.593 1946 Unknown [id number] 2.16.84 0.1.918625.3.579.2.593 1946 Unknown [id number] 2.16.84 0.1.565554.3.579.2.593 1946 Unknown [id number] 2.16.84 0.1.037065.3.579.2.593 1946 Unknown [id number] 2.16.84 0.1.259785.3.579.2.593 1946 Unknown [id number] 2.16.84 0.1.987525.3.579.2.593 1946 Unknown [id number] 2.16.84 0.1.952652.3.579.2.593 1946 Unknown [id number] 2.16.84 0.1.769011.3.579.2.1259 1946 Unknown [id number] 2.16.84 0.1.986738.3.579.2.1259 1946 Unknown [id number] 2.16. 840.1.705757.3.579.2.196 1945 Unknown [id number] 2.16. 840.1.075104.3.579.2.196 1945 Unknown [id number] 2.16. 840.1.272204.3.579.2.196 Medicare Medicare Outpatient [id number] Social History Date Type Detail Facility Unknown if ever smoked [facility] Other Sex Assigned At Sex Assigned At Bir th [facility] Other Start: 10-02-2023 Tobacco smoking status NHIS Never smoked tobacco (finding) [facility] Start: 1945 Sex Assigned At Female F [facility] Goals Date Patient Goal Desired Activity /State Clinical Notes 11-30-2021 to 10-02-2023 Note Date & Type Note Facility 10-02-2023 Procedure note [facility] 08-30-2023 Evaluation note Encounter Date Diagnosis [...] try OTC ones in meantime. Referral placed. [facility] Other 01-10-2024 Evaluation note* Encounter Date Diagnosis Assessment Notes Treatment Notes Treatment Clinical Notes Aug, GERD (gastroesophageal reflux disease) (ICD-10 - K21.9) Aug, Chronic diarrhea (ICD-10 - K52.9) Patient reports that her last colonoscopy was at the [facility] about 11 years ago and that she can not remember who preformed the procedure Aug, Abdominal pain (ICD-10 - R10.9) Aug, Weight loss, unintentional (ICD-10 - R63.4) Aug, Change in bowel habits (ICD-10 - R19.4) Patinet is advised to have a colonoscopy ordered, scheduled and prep instructions given today Risks and benefits of procedure explained to patient; patient verbalizes understanding. [facility] Other 12-04-2023 Evaluation note* Encounter Date Diagnosis [...] (ICD-10 - M81.0) Due for Dexa 08/2023 [facility] Other 02-16-2023 NoteCONSULTATION CONSULTATION DATE: 09/27/2022 HISTORY OF PRESENT ILLNESS: This is a 76-year-old female who returns to the clinic status post LES on 09/11/2022. The patient states she was afforded between 50-60% relief. Depending on her physical activity, determines her level of comfort. 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, housework and lifting greatly aggravate her [...] Patient is in agreement with this plan.[id number] NoteCONSULTATION CONSULTATION DATE: 09/04/2022 HISTORY OF PRESENT [...] patient understands and would like to proceed.[id number] NoteCONSULTATION CONSULTATION DATE: 07/11/2022 HISTORY OF PRESENT [...] followed up in the clinic post procedure.[id number] NoteCONSULTATION PROCEDURE DATE: 07/11/2022 PREOPERATIVE DIAGNOSIS: Bilateral [...] will be followed up in the clinic.[facility] 06-06-2022 NoteCONSULTATION CONSULTATION DATE: 06/06/2022 HISTORY [...] pain returning. 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 The patient has not seen a engineering documentation specialist in the past. REVIEW OF SYSTEMS, PAST [...] mg q.h.s. A referral to rheumatology near [place] will be sent on her behalf and I highly encouraged her to seek consultation, particularly since she has a familial history of autoimmune diseases. The patient agrees with the plan of care and will be followed up in the office in three months' time. IF Signed and Approved by: MICHELE SALDAÑA . 03/02/2022 14:16:00[facility]04-21-2022 NoteCONSULTATION Consultation Date:11/30/2021 PREOPERATIVE DIAGNOSIS: Right [...] and Approved by: MICHELE SALDAÑA . 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 Lying down and using heat decrease her pain. Prior to the procedure, she was in a state of acute pain and was placed on a short term course of Ward 5/325 b.i.d. p.r.n. Patient states she only [...] of care and would like to proceed. [facility] Signed and Approved by: MICHELE SALDAÑA . 12/06/2021 16:[facility]00[facility] noteNo InformationNort [address] Other Evaluation noteNo assessment information available [facility] Work Phone: History and physical note Author Sunny Torres [facility] October 02, 2023 8:54am Note Date/Time October 02, 2023 8:54am [facility] [address] [place] [address] Gastroenterology H&P Signed Patient: Lobo Murdock MR#: [id number] : 1945 Acct:[id number] Age/Sex: 78 / F Adm Date: 4 Loc: Room: Type: [facility] Attending Dr: Sunny Torres MD Copies to: [...] signed by Sunny Torres MD> 10/02/23 0854 [facility] Work Phone: History general Narrative - Reported* [...] shoulder pain 1982 Hospitalization History migraines 1992 [facility] Other Hospital Discharge instructions Additional Instructions DISCHARGE [...] NOT operate machinery such as power tools, [employer] mowers, Cadent blowers, sewing machines, etc. for 24 hours. [...] up in the office - Office number [phone]. [facility] Work Phone: Summary Purpose Family History [...] Chronic diarrhea (K5 2.9) Referral Organization [facility] pipo Referring Provider First Name Patricia Referring Provider Last Name Abdoulaye Referring Provider Specialty [facility] Referred Organization [facility] Referred Address [address],[address] Referred Provider Specialty Gastroentero logy Referral Priority Routine Reason *FU 09/06 R foot p ain Diagnosis 1 Pain of left great t oe (M79.675) Referral Organization [facility] Referring Provider First Name Patricia Referring Provider Last Name Abdoulaye Referring Provider Specialty [facility] Referred Organization [facility] Referred Provider Odin Chong Referred Address [address] [place], [place],[address] Referred Provider Specialty Podiatry - S urgical [...] content) DATE CREATED AUTHOR 05/09/2022 [facility] DATE CREATED AUTHOR AUTHOR'S ORGANIZ ATION 11/17/2022 [facility] DATE CREATED AUTHOR AUTHOR'S ORGANIZ ATION 09/09/2023 [facility] EPIC DATE CREATED AUTHOR AUTHOR'S ORGANIZ ATION 10/09/[address] [facility] DATE CREATED AUTHOR AUTHOR'S ORGANIZ ATION 10/18/2023 [facility] REASON FOR VISIT (unrecogniz ed [...] BE BASED ON THE PRIMARY CLINICAL RECORDS. [employer] [facility]. provides no warranty or guarantee of the accuracy or completeness of information in this document.
--- NOTE | 2024-03-05 12:33 | XR_ITS ---
The [address] [address] Patient Name: LOBO MURDOCK MRN: [id number] date: 1945 Sex: F Assigned Patient Location: [facility] Current Patient Location: [facility] Accession/Order Number: [id number] Exam Date: 03/05/2024 13:15 Report Date: 03/05/2024 13:57 At the request of: VERONICA CARCAMO Procedure: XR chest 2V EXAM: XR chest 2V HISTORY: Preop exam COMPARISON: 12/18/2019 TECHNIQUE: Upright PA and lateral chest x-ray FINDINGS: The heart is not enlarged and the vasculature is not distended. No acute infiltrate, effusion or pneumothorax is identified.. Diffuse osteopenia is noted. A remote compression fractures in the lower thoracic spine. XR/XR chest 2V IMPRESSION: No acute infiltrate or evidence of cardiac decompensation. The overall appearance of the chest has not changed significantly. Electronically authenticated by: DANNY URBANO Date: 03/05/2024 13:57
[2024-03-05 13:53] LABS: Basophils Percent Auto 0.8 % (0.2-2.0); Eosinophils Absolute Auto 0.1 10^3/uL (0.0-0.7); Eosinophils Percent Auto 1.7 % (0.9-7.0); Hematocrit 37.9 % (36.0-48.0); Hemoglobin 12.5 g/dL (12.0-16.0); Immature Granulocytes Abs Auto 0.04 10^3/uL (0.00-0.03); Immature Granulocytes Pct Auto 0.8 % (0.0-0.5); Lymphocytes Absolute Auto 1.5 10^3/uL (1.2-3.8); Lymphocytes Percent Auto 29.1 % (20.5-60.0); Mean Corpuscular Hemoglobin 32.7 pg (26.7-34.0); Mean Corpuscular Volume 99.2 fL (81.0-99.0); Mean Platelet Volume 9.9 fL (9.5-13.5); Monocytes Absolute Auto 0.6 10^3/uL (0.3-0.8); Monocytes Percent Auto 11.2 % (1.7-12.0); Neutrophils Percent Auto 56.4 % (43.0-75.0); Platelet Count 275 10^3/uL (150-450); Red Blood Count 3.82 10^6/uL (4.20-5.40); Red Cell Distribution Width 12.6 % (11.0-15.0); White Blood Count 5.3 10^3/uL (4.0-11.0)
[2024-03-05 14:02] LABS: INR 0.99; Partial Thromboplastin Time 26.9 sec (22.3-36.2); Prothrombin Time 10.5 sec (9.0-11.6)
[2024-03-05 14:06] LABS: Alanine Aminotransferase 21 U/L (14-59); Albumin Globulin Ratio 1.1; Albumin Level 3.7 g/dL (3.4-5.0); Alkaline Phosphatase 79 U/L (46-116); Aspartate Amino Transferase 23 U/L (15-37); BUN Creatinine Ratio 17.5; Bilirubin Direct 0.1 mg/dL (0.0-0.2); Bilirubin Total 0.5 mg/dL (0.2-1.0); Calcium 9.9 mg/dL (8.5-10.1); Carbon Dioxide 27.9 mmol/L (21.0-32.0); Chloride 106 mmol/L (98-107); Estimated GFR (African America 56 (>=60); Estimated GFR (Non-African Ame 46 (>=60); Globulin 3.3 g/dL; Glucose 86 mg/dL (74-106); Potassium 3.9 mmol/L (3.5-5.1); Sodium 143 mmol/L (136-145)
== END 2024-03-05 12:24 | disposition home or self-care (01) ==
LOC: PST 12:24
PROVIDERS: Visit Provider Orthopaedic Surgery Orthopaedic Surgery of the Spine
DX: Z01.810 Encounter for preprocedural cardiovascular examination (principal); Z01.812 Encounter for preprocedural laboratory examination; M51.37 Other intervertebral disc degeneration, lumbosacral region; M47.816 Spondylosis without myelopathy or radiculopathy, lumbar region; M62.838 Other muscle spasm; M53.3 Sacrococcygeal disorders, not elsewhere classified
CPT/HCPCS: 36415; 71046; 80048; 80076; 85025; 85610; 85730; 87081; G0463

== ENCOUNTER 2024-03-09 07:16 | Outpatient (RCR) | payer MEDICARE, SELFPAY ==
[2024-03-09 11:49] VITALS: BP 149/75; PULSE 106; TEMP 36.8; O2SAT 96
[2024-03-09] MEDS: DENOSUMAB 60 MG/ML SYRINGE SUBQ (11:53)
--- NOTE | 2024-03-09 11:59 | PC.NURSE ---
1149: Pt. to [facility] amb. for Prolia injection. Seated in recliner. VSS. Denies adverse reaction to ordered med. Pt. medicated with Prolia as ordered, see documentation. Pt. tolerated without c/o. No bleeding to site. 1200: Pt. d/c'd amb. to home.
== END 2024-03-11 08:33 | disposition home or self-care (01) ==
LOC: INF 07:16
PROVIDERS: Visit Provider Family Medicine
DX: M81.0 Age-related osteoporosis without current pathological fracture (principal)
CPT/HCPCS: 96372; J0897

== ENCOUNTER 2024-03-24 09:17 | Outpatient (OUT) | payer MEDICARE, SELFPAY ==
--- NOTE | 2024-03-24 | XR_ITS ---
The [address] [address] Patient Name: LOBO MURDOCK MRN: [id number] date: 1945 Sex: F Assigned Patient Location: Current Patient Location: Accession/Order Number: [id number] Exam Date: 03/24/2024 09:20 Report Date: 03/26/2024 06:08 At the request of: DANNY MEDINA Procedure: XR foot LT min 3V PROCEDURE: XR foot LT min 3V HISTORY: LEFT FOOT PAIN COMPARISON: XR foot left 01/22/2024 FINDINGS: BONES:Prior mechanical fusion of the first metatarsophalangeal joint via dorsal plate and screws; no hardware fracture loosening. No bone fracture or dislocation. Flattening of plantar arch. Prior resection of lateral margin of 5th metatarsal head. SOFT TISSUES:No visible soft tissue swelling. EFFUSION:None visible. OTHER: Negative. XR/XR foot LT min 3V IMPRESSION: 1. Stable surgical changes and stable hardware without evidence of hardware failure or change in alignment. 2. No acute abnormality. Electronically authenticated by: IRINA VÁZQUEZ Date: 03/26/2024 06:08
--- OUTSIDE RECORDS SUMMARY | 2024-03-24 09:33 | XMS_ITS | CCD ---
Author Organization [facility] Care Team Providers Care Wildlife Forensic Geneticist Name Role Phone PHYSICIAN, DEFAULT Admitting Unavailable PHYSICIAN, DEFAULT Attending Unavailable ALT-DANIEL, BRINDA Primary Care Unavailable OVIDIOARIADNA LINDSEY Admitting Unavailable OVIDIO, ARIADNA Cook Attending Unavailable ALT-DANIEL, BRINDA Referring Unavailable ALT-DANIEL, BRNIDA Primary Care Unavailable MATTHEWS ., DR MASSIMO [...] ABDOULAYE, DR PATRICIA Crain Primary Care Unavailable ABDOULAYE, DR PATRICIA Crain Primary Care Unavailable STANFORD, DR PATRICIA Crain Consulting Unavailable ABDOULAYE, DR PATRICIA Crain Attending Unavailable STANFORD, DR PATRICIA Crain Admitting Unavailable MATTHEWS ., DR MASSIMO Cook Attending Unavailable MATTHEWS ., DR MASSIMO Cook Admitting Unavailable PIPER .MICHELE Consulting Unavailable BALL, DR FLANAGAN Primary Care Unavailable MATTHEWS ., DR MASSIMO Cook Admitting Unavailable MATTHEWS ., DR MASSIMO Cook Attending Unavailable ABDOULAYE, DR PATRICIA Crain Primary Care Unavailable BYRON ., DR MASSIMO Cook Consulting Unavailable Patricia Stanford Unavailable Asaad, Imad Unavailable MD Patricia Stanford Primary Care Provider [phone] MD Melissa Imravindra Attending Provider Giradha DIAZ, Andri Vcuate Attending Unavailable Darrion DIAZ, Andrius Vytautlong Attending Unavailable Darrion DIAZ, Andrius Vcuate Attending Unavailable MD Patricia Stanford Primary Care Provider MD Melissa Imravindra Attending Provider APLCARI OWENS Attending Unavailable APLINGCARI B Attending Unavailable APLCARI OWENS Attending Unavailable APLGRACIELA, CARI Keith Attending Unavailable Patricia Stanford Primary Care Unavailable Asaad, Imad Admitting Unavailable Asaad, Imad Attending Unavailable Patricia Stanford Primary Care Unavailable Asaad, Imad Attending Unavailable Asaad, Imad Admitting Unavailable Allergies Allergy Classification Reported Allergen(s) Allergy Type Date of Onset Reaction(s) Facility (8 sources) Calcitonin ([place]) *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 Propensity to adverse reactions Comment:severe weakness ZeaKal Other (2 sources) calcitonin; Translations: [calcitonin] Propensity to adverse reactions 4 Joint Pain [facility] Medications Current Medications Medication Drug Class(es) Dates Sig (Normalized) Sig (Original) baclofen 10 mg oral tablet (10 sources) gamma-Aminobutyric Acid-ergic Agonist Start: 10-25-2020 take 10 mg by mouth once daily Baclofen Active 10 MG PO Daily October 02, 2023 1:00am budesonide 3 mg delayed release oral capsule (2 sources) Corticosteroid Start: 10-04-2023 End: 03-06-2024 Budesonide 3 MG 3 tabs daily for 60 days, 2 tabs daily for 14 days, 1 tab daily for 14 days Orally Once a day for 88 Sep, Active calcium citrate 1500 mg / cholecalciferol 250 unt oral tablet (1 source) Vitamin D Start: 03-13-2024 take 1 tablet by mouth once daily Calcium Citrate-Vitamin D3 (Citracal + D Maximum) 315 mg-6.25 mcg (250 unit) tablet Active 1 TAB PO Daily March 13, 2024 12:00am cholecalciferol 0.025 mg oral tablet (1 source) Vitamin D Start: 03-13-2024 take 25 ug by mouth once daily Cholecalciferol (Vitamin D3) Active 25 MCG PO Daily March 13, 2024 12:00am Citracal Plus - (8 sources) Start: 10-25-2020 Citracal Plus - as directed Orally once a day for 0 days Oct, Active 1 ml denosumab 60 mg/ml prefilled syringe (9 sources) RANK Ligand Inhibitor Start: 03-13-2024 Denosumab (Prolia) 60 mg/mL syringe Active 60 MG SUBCUT EVERY 6 MONTHS March 13, 2024 12:00am Start: 08-13-2019 Prolia 60MG/ML Prolia 60MG/ML, # 0, 08/13/2019, No Refill. Active Subcutaneous for 0 *Pick strength-form from [facility] for eRX* Aug, Active diclofenac sodium 50 mg delayed release oral tablet (10 sources) Nonsteroidal Anti-inflammatory Drug Start: 10-02-2023 take 50 mg by mouth once daily Diclofenac Sodium Active 50 MG PO Daily October 02, 2023 1:00am Start: 10-25-2020 take 1 tablet by brijesh every twelve hours Diclofenac Sodium 50 MG 1 tablet as needed Orally Twice a day for 0 days Oct, Active erythromycin 0.005 mg/mg ophthalmic ointment (2 sources) Macrolide, Macrolide Antimicrobial Start: 07-06-2023 Erythromycin 5 MG/GM 1 application into the lower eyelid of affected eye right eye 2-3 times per day for 7 days Jun, Active Magnesium (8 sources) Start: 10-25-2020 take 1 tablet by mouth once daily Magnesium 400 MG 1 tablet with a meal Orally Once a day for 0 days *Pick strength-form from [facility] for eRX* Oct, Active magnesium oxide 400 mg oral tablet (1 source) Start: 03-13-2024 take 1 tablet by mouth once daily Magnesium Oxide Active 400 MG PO Daily March 13, 2024 12:00am FreeTextSi tablet with a meal Orally Once a day; Note: Source Status: Taking*Pick strength-form from [facility] for eRX*; Provider: Abdoulaye Gomez ( ) Multiple Vitamin (8 sources) take 1 tablet by mouth once daily Multiple Vitamin 1 tablet Orally Once a day Active Eoqygjbb-Cnia-Pa-Junaid cium-Mins (Daily Multiple For Women) 18 mg iron-400 mcg-500 mg Ca tablet (1 source) Start: 03-13-2024 take 1 tablet by mouth once daily Eojnxhab-Jedz-Sn-C alcium-Mins (Daily Multiple For Women) 18 mg iron-400 mcg-500 mg Ca tablet Active 1 TAB PO Daily March 13, 2024 12:00am pantoprazole 40 mg delayed release oral tablet (13 sources) Proton Pump Inhibitor Start: 07-15-2023 End: 10-04-2023 take 40 mg by mouth once daily Pantoprazole Active 40 MG PO Daily October 04, 2023 3:40pm traMADol hydrochloride 50 mg oral tablet (9 sources) Opioid Agonist Start: 03-06-2024 take 50 mg by mouth twice daily Tramadol Active 50 MG PO Twice daily March 06, 2024 12:00am Start: 10-25-2020 take 1 tablet by brijesh th every twenty-four hours traMADol HCl 50 MG 1 tablet as needed Orally Once a day for 0 days PRN Oct, Active Vitamin D3 1000 UNIT (8 sources) take 1 tablet by brijesh th once daily Vitamin D3 1000 UNIT 1 tablet Orally Once a day Active Completed/Discontinued Medications Medication Drug Class(es) Dates Sig (Normalized) Sig (Original) escitalopram 10 mg oral tablet (1 source) Serotonin Reuptake Inhibitor Start: 03-16-2024 End: 03-20-2024 take 1 tablet by mouth once daily Escitalopram Oxalate (Lexapro) 10 mg tablet Discontinued 10 MG PO Daily 30 March 16, 2024 12:00am March 20, 2024 7:22am hyoscyamine sulfate 0.125 mg oral tablet (9 sources) Start: 03-13-2024 End: 03-16-2024 take 1 tablet by mouth four times daily as needed Hyoscyamine Sulfate Discontinued MG PO March 13, 2024 12:00am March 16, 2024 9:08am FreeTextSi tablet as needed Orally qid prn; Note: Source Status: Refill; Provider: Abdoulaye Crain take 1 tablet by brijesh four times daily as needed Levsin 0.125 MG 1 tablet as needed Orall y qid prn for 10 days Active Sod Picosulf-Mag Ox-Citric Ac (2 sources) Start: 02-20-2024 End: 03-06-2024 take 1 dose by mouth once daily Sod Picosulf-Mag Ox-Citric Ac (Clenpiq) 10 mg-3.5 gram- 12 gram/175 mL solution Discontinued 175 ML PO Daily 350 0 February 20, 2024 12:00am March 06, 2024 9:13am take first dose at 3PM evening before colonoscopy; 2nd dose at 9pm the night before colonoscopy Start: 10-04-2023 End: 03-20-2024 take 1 dose by mouth once daily Sod Picosulf-Mag Ox-Citric Ac (Clenpiq) 10 mg-3.5 gram- 12 gram/175 mL solution Discontinued 175 ML PO Daily 175 1 October 04, 2023 1:00am March 20, 2024 7:22am Take first dose at 3pm orally the day before colonoscopy. Take second dose at 9pm orally the day before colonoscopy. 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] Episodic Other [...] Spondylosis; intervertebral disc disorders; other back problems (18 sources) Other spondylosis with radiculopathy, lumbar region; [...] Test Name Value Interpretation Reference Range Facility G[facility] 10-02-2023 L Specimen: [id number] Received: 10/02/23 Status: OJ Brice Num: [id number] Spec Type: Surgical Subm Dr: Sunny Torres MD Tissues: A GASTRIC FOR HP (GASTRIC BX R/O H.PYLORI) B Colon Biopsy (RANDOM COLON BX R/O MICROSCO) Procedures: HE/4, Gross/Micro L4/2, H PYLORI Age/ Patient Sex Location Account Attending Physician MurdockLobo 78/F [id number] Sunny Torres MD SPEC NUM: [id number] RECD: 10/02/23 STATUS: OJ BRICE NUM: [id number] TEO: 10/02/[address]: Sunny Torres MD ENTERED: 10/02/23-[address]: SPEC TYPE: Surgical DEPT: S ORDERED: [...] name, date of and random colon Specimen: [id number] Received: 10/02/23 Status: OJ Brice Num: [id number] Spec Type: Surgical Subm Dr: Sunny Torres MD Tissues: A GASTRIC FOR HP (GASTRIC BX R/O H.PYLORI) B Colon Biopsy (RANDOM COLON BX R/O MICROSCO) Procedures: HE/4, Gross/Micro L4/2, H PYLORI Patient: Lobo Murdock [id number] (Continued) Specimen: [id number] Received: 10/02/23 (Continued) Gross Description (Continued) Signed (signature on file) Patito Grimm MD 10/03/23 1430 Specimen: [id number] Received: 10/02/23 Status: OJ Brice Num: [id number] Spec Type: Surgical Subm Dr: Sunny Torres MD Tissues: A GASTRIC FOR HP (GASTRIC BX R/O H.PYLORI) B Colon Biopsy (RANDOM COLON BX R/O MICROSCO) Procedures: HE/4, Gross/Micro L4/2, H PYLORI Patient: Lobo Murdock [id number] (Continued) Specimen: [id number] Received: 10/02/23 (Continued) Gross Description (Continued) biopsy are 2 galvan translucent soft tissue fragments, 0.3 and 0.6 cm in greatest dimensions. Entirely submitted in one cassette labeled B1. CPT Codes [id number] Specimen: [id number] Received: 10/02/23 Status: OJ Brice Num: [id number] Spec Type: Surgical Subm Dr: Sunny Torres MD Tissues: A GASTRIC FOR HP (GASTRIC BX R/O H.PYLORI) B Colon Biopsy (RANDOM COLON BX R/O MICROSCO) Procedures: HE/4, Gross/Micro L4/2, H PYLORI Patient: Lobo Murdock [id number] (Continued) Signed (signature on file) Patito Grimm MD 10/03/23 1430 Normal [facility] CALCIUMon 10-03-2022 Calcium [Mass/Vol] 8.9 mg/dL Normal 8.5-10.1 [facility] Comment on above: Performed By: #### VALERIO MADRIGAL #### [facility] [address] [place] [address] Dr. Dang Grimm CREATININEon 10-03-2022 Creatinine [Mass/Vol] 1.03 mg/dL Critically high 0.55-1.02 [facility] Comment on above: Performed By: ###VALERIO NIEVES #### [facility] [address] [place] [address] Dr. Dang Grimm EGFR-AF IRISH >60 Normal >=60 [facility] Comment on above: Performed By: #### VALERIO MADRIGAL #### [facility] [address] [place] [address] Dr. Dang Grimm EGFR-NON AF IRISH 52 mL/min/1.73m2 Critically low >=60 [facility] Comment on above: Performed By: #### C VALERIO ADAMS #### [facility] [address] [id number] Dang Grimm Covid-19 PCR ([facility])on SARS-CoV-2 (COVID-19) RNA GENARO+probe Ql (Unsp spec) Not detected Normal NOT DETECTED [facility] Comment on above: Result Comment: This test is not yet approved or cleared by the [place] FDA. When there are no FDA-approved or cleared tests available, and other criteria are met, FDA can make tests available under an emergency access mechanism called an Emergency Use Authorization (EUA). The EUA for this test is supported by the Resident Care Manager of Health and Human Service's (HHS's) declaration [...] SARS-CoV-2. Performed By: #### C VDTB #### [facility] [address] [place] [address] Dr. Dang Grimm ANAon 04-20-2022 OCTAVIA PATTERN SPECKLED Normal [facility] Comment on above: Result Comment: [...] authority. Performed By: #### 1 0196 #### [facility] [address] [facility]. [address] OCTAVIA SCREEN 1:40 Normal <1:40,1:40 [facility] Comment on above: Result Comment: Test performed using MELCHOR IFA OCTAVIA Hep-2 Test, a pre-standardized assay designed for the qualitative and semi-quantitative detection of antinuclear antibodies. Performed By: #### 1 0196 #### [facility] [address] [facility]. [address] C REACTIVE PROTEINon CRP [Mass/Vol] 2.5 mg/L Normal 0.0-7.0 [facility] Comment on above: Performed By: #### 6 1405, 77534 #### [facility] [address] CBC COMPLETE BLOOD COUNTon 0 04-20-2022 Erythrocyte distribution width (RBC) [Ratio] 12.4 % Normal 11.5-15.0 [facility] Comment on above: Performed By: #### 5 6506, 36809 #### [facility] [address] Hematocrit (Bld) [Volume fraction] 41.6 % Normal 36.0-45.0 [facility] Comment on above: Performed By: #### 5 6506, 10535 #### [facility] [address] [facility]. [address] Hemoglobin (Bld) [Mass/Vol] 13.7 g/dL Normal 12.0-15.0 [facility] Comment on above: Performed By: #### 5 6506, 23643 #### [facility] [address] [facility]. [address] MCH (RBC) [Entitic mass] 31.4 pg Normal 27.0-33.0 [facility] Comment on above: Performed By: #### 5 6506, 97257 #### [facility] [address] [place] [address], [facility] MCHC (RBC) [Mass/Vol] 32.9 g/dL Normal 32.0-35.0 [facility] Comment on above: Performed By: #### 5 650, 91162 #### [facility] [address] [place] [id number], [facility] MCV (RBC) [Entitic vol] 95.2 fL Normal 82.0-98.0 [facility] Comment on above: Performed By: #### 5 6505, 10751 #### [facility] [address] [place] [address], [facility] Nucleated RBC/100 WBC (Bld) [Ratio] 0 % Normal 0-0 [facility] Comment on above: Performed By: #### 5 6505, 11082 #### [facility] [address] [place] [address], [facility] PLAT CNT 248 10*3/uL Normal 150-400 [facility] Comment on above: Performed By: #### 5 650, 17947 #### [facility] [address] [facility] [place] [place] [address], [facility] RBC (Bld) [#/Vol] 4.37 10*6/uL Normal 3.80-5.00 [facility] Comment on above: Performed By: #### 5 650, 48575 #### [facility] [address] [facility] [place] [address], [facility] WBC (Bld) [#/Vol] 5.54 10*3/uL Normal 4.00-10.60 [facility] Comment on above: Performed By: #### 5 650, 32132 #### [facility] [address] [place] [address], [facility] CERVICAL SPINE 4 OR 5 VIEWSo n 04-20-2022 CERVICAL SPINE 4 OR 5 VIEWS [facility] Department of Radiology [address] [place] [address] ===== Patient Name: LOBO MURDOCK : 1945 Sex: F Age: Race: White Pt. Location: [facility] Patient Status: O Ordered Date: 04/20/2022 10:50:00 AM Completed Date: 04/20/2022 11:42 AM Requesting Provider: MICHAEL HAHN Attending Provider: ARIADNA NOLAN Report Copy To: Signs & Symptoms: M54.2 Cervicalgia I10 History: [place] Comments: Views (X-RAY, CERVICAL SPINE): AP, Lateral, [...] C3 Electronically signed: Christian Upton. Transcribed by: [email or web address], User Resident: Electronically Signed by: CHRISTIAN UPTON @ 04/20/2022 02:33 PM Normal [facility] Comment on above: Order Comment: Views (X-RAY, CERVICAL SPINE): AP, Lateral, Odontoid, Flexion, Extension COMP METABOLIC PANELon 04-20 Albumin [Mass/Vol] 4.1 g/dL Normal 3.5-5.7 [facility] Comment on above: Performed By: #### 3 5515, 92225, 93222 #### [facility] [address] [place] [address], [place] ALKALINE PHOSPH 63 IU/L Normal 34-[address] [facility] Comment on above: Performed By: #### 3 5515, 97774, 96913 #### [facility] [address] [place] [address], [place] ALT [Catalytic activity/Vol] 15 U/L Normal 7-52 [facility] Comment on above: Performed By: #### 3 5515, 06087, 18682 #### [facility] [address] [place] [address], [place] AST [Catalytic activity/Vol] 22 U/L Normal 13-39 [facility] Comment on above: Performed By: #### 3 5515, 84561, 02286 #### [facility] [address] [place] [address], [place] Bilirubin [Mass/Vol] 0.5 mg/dL Normal 0.3-1.0 [facility] Comment on above: Performed By: #### 3 5515, 80173, 47108 #### [facility] [address] [place] [address], [place] Calcium [Mass/Vol] 10.2 mg/dL Normal 8.6-10.3 [facility] Comment on above: Performed By: #### 3 5515, 04223, 13170 #### [facility] [address] [place] [address], [facility] Chloride [Moles/Vol] 105 mmol/L Normal 98-107 [facility] Comment on above: Performed By: #### 3 5515, 85028, 62616 #### [facility] [address] [place] [address], [place] CO2 [Moles/Vol] 25 mmol/L Normal 21-[address] [facility] Comment on above: Performed By: #### 3 5515, 46470, 86419 #### [facility] [address] [place] [address], [facility] Creatinine [Mass/Vol] 0.95 mg/dL Normal 0.60-1.20 [facility] Comment on above: Performed By: #### 3 5515, 39840, 48733 #### [facility] [address] [place] [address], [place] GFR/1.73 sq M.predicted among non-blacks MDRD (S/P/Bld) [Vol rate/Area] mL/min/{1.73_m2} Normal >60 [facility] Comment on above: Result Comment: [facility]'s estimated glomerular filtration rate (eGFR) [...] of individuals. Performed By: #### 3 5515, 04460, 07769 #### [facility] [address] [place] [address], [place] Glucose [Mass/Vol] 88 mg/dL Normal 70-100 [facility] Comment on above: Performed By: #### 3 5515, 34164, 82771 #### [facility] [address] [place] [address], [facility] Potassium [Moles/Vol] 4.5 mmol/L Normal 3.5-5.1 [facility] Comment on above: Performed By: #### 3 5515, 44647, 35239 #### [facility] [address] [place] [address], [facility] Protein [Mass/Vol] 6.8 g/dL Normal 6.0-8.3 [facility] Comment on above: Performed By: #### 3 5515, 83280, 16394 #### [facility] [address] [place] [address], [facility] Sodium [Moles/Vol] 138 mmol/L Normal 136-145 [facility] Comment on above: Performed By: #### 3 5515, 70572, 47581 #### [facility] [address] [place] [address], [facility] Urea nitrogen [Mass/Vol] 29 mg/dL High 7-25 [facility] Comment on above: Performed By: #### 3 5515, 08037, 25101 #### [facility] [address] CYCLIC [place]INATED PEPTIDE [place] [id number] 04-20-2022 CYCLIC CIT PEP 2 Units Normal 0-19 [facility] Comment on above: Result Comment: [...] be monitored and testing repeated. Performed By: [facility] [address] [place] [address] Rack Washer: Brett Tamez MD, PhD FERRITINon 04-20-2022 Ferritin [Mass/Vol] 43 ng/mL Normal 11-307 [facility] Comment on above: Performed By: #### 3 5515, 03032, 97233 #### [address] HAND LEFT 3 [facility] 04-20-2022 HAND LEFT 3 [facility] Department of Radiology [address] [place] [id number] ===== Patient Name: LOBO MURDOCK : 1945 Sex: F Age: Race: White Pt. Location: [facility] Patient Status: O Ordered Date: 04/20/2022 10:50:00 AM Completed Date: 04/20/2022 11:42 AM Requesting Provider: MICHAEL HAHN Attending Provider: ARIADNA NOLAN Report Copy To: Signs & Symptoms: M79.641 Pain in right hand I10 History: Chloe Comments: Evaluate Exam: HAND LEFT 3 [facility] ===== HAND LEFT 3 VWS 04/20/2022 11:42 [...] report. Electronically signed: Chelita Lazcano. Transcribed by: [email or web address], User Resident: NIRMALA MONGE Electronically Signed by: CHELITA LAZCANO @ 04/20/2022 01:29 PM I personally read this/these film(s) with this resident Normal [facility] Comment on above: Order Comment: Evalu ate HAND RIGHT 3 VWSon 2 HAND RIGHT 3 S [facility] Department of Radiology [address] [place] [id number] ===== Patient Name: LOBO MURDOCK : 1945 Sex: F Age: Race: White Pt. Location: [facility] Patient Status: O Ordered Date: 04/20/2022 10:50:00 AM Completed Date: 04/20/2022 11:42 AM Requesting Provider: MICHAEL HAHN Attending Provider: ARIADNA NOLAN Report Copy To: Signs & Symptoms: M79.641 Pain in right hand I10 History: [place] Comments: Evaluate Exam: HAND RIGHT 3 VWS [...] report. Electronically signed: Chelita Lazcano. Transcribed by: [email or web address], User Resident: NIRMALA MONGE Electronically Signed by: CHELITA LAZCANO @ 04/20/2022 01:43 PM I personally read this/these film(s) with this resident Normal [facility] Comment on above: Order Comment: Evalu ate RHEUMATOID FACTOR SERUMon RA <20 Normal 0-20 [facility] Comment on above: Performed By: #### 6 1405, 51925 #### [facility] [address] SEDIMENTATION RATEon 022 SED RATE 38 mm/hr High 0-20 [facility] Comment on above: Performed By: #### 5 8136, 52595 ####[facility] [place] [address], [facility] TIBC- INCLUDES IRONon 2021 FE SATURATION 30 % Normal 20-50 [facility] Comment on above: Performed By: #### 3 5515, 20332, 69652 #### [facility] [address] [place] [address], [facility] Iron [Mass/Vol] 115 ug/dL Normal 50-212 [facility] Comment on above: Performed By: #### 3 5515, 66762, 90621 #### [facility] [address] [place] [address], [facility] TIBC 378 mcg/dL Normal 250-450 [facility] Comment on above: Performed By: #### 3 5515, 19251, 31335 #### [facility] [address] [place] [address], [facility] UIBC 263 mcg/dL Normal 155-355 [facility] Comment on above: Performed By: #### 3 5515, 45565, 59201 #### [facility] [address] [place] [address], [facility] CALCIUMon 04-09-2022 Calcium [Mass/Vol] 9.6 mg/dL Normal 8.5-10.1 [facility] Comment on above: Performed By: #### VALERIO MADRIGAL #### [facility] [address] [address] [address] Dang Grimm CREATININEon 04-09-2022 Creatinine [Mass/Vol] 1.07 mg/dL Critically high 0.55-1.02 [facility] Comment on above: Performed By: #### VALERIO MADRIGAL #### [facility] [address] [address] [address] Dang Grimm EGFR-AF IRISH >60 Normal >=60 [facility] Comment on above: Performed By: #### VALERIO MADRIGAL #### [facility] [address] [address] [address] Dang Grimm EGFR-NON AF IRISH 50 mL/min/1.73m2 Critically low >=60 [facility] Comment on above: Performed By: #### C VALERIO ADAMS #### [facility] [address] [address] [address] Dang Grimm Vital Signs Date Time Vital Sign Value Performing Clinician Facility 03-20-2024 09:15-0400 Diastolic blood pressure 62 mm[Hg] MD Patricia Stanford Work Phone: [facility] 03-20-2024 09:15-0400 Heart rate 72 /min MD Patricia Stanford Work Phone: [facility] 03-20-2024 09:15-0400 Respiratory rate 20 /min MD Patricia Stanford Work Phone: [facility] 03-20-2024 09:15-0400 SaO2% (BldA) [Mass fraction] 99 % MD Patricia Stanford Work Phone: [facility] 03-20-2024 09:15-0400 Systolic blood pressure 115 mm[Hg] MD Patricia Stanford Work Phone: [facility] 03-20-2024 07:18-0400 Body height 156.84 cm MD Patricia Stanford [facility] [facility] 03-20-2024 07:18-0400 Body weight 55.33 kg MD Patricia Stanford Work Phone: [facility] 03-16-2024 09:04-0400 Body height 156.84 cm MD Patricia Stanford Work Phone: [facility] 03-16-2024 09:04-0400 Body mass index (BMI) [Ratio] 22.8 kg/m2 MD Patricia Stanford Work Phone: [facility] 03-16-2024 09:04-0400 Body weight 56.24 kg MD Patricia Stanford Work Phone: [facility] 03-16-2024 09:04-0400 Diastolic blood pressure 72 mm[Hg] MD Patricia Stanford Work Phone: [facility] 03-16-2024 09:04-0400 Heart rate 81 /min MD Patricia Stanford Work Phone: [facility] 03-16-2024 09:04-0400 Systolic blood pressure 122 mm[Hg] MD Patricia Stanford Work Phone: [facility] 10-02-2023 09:55-0500 Diastolic blood pressure 67 mm[Hg] MD Patricia Stanford Work Phone: [facility] 10-02-2023 09:55-0500 Heart rate 80 /min MD Patricia Stanford Work Phone: [facility] 10-02-2023 09:55-0500 Respiratory rate 16 /min MD Patricia Stanford Work Phone: [facility] 10-02-2023 09:55-0500 SaO2% (BldA) [Mass fraction] 99 % MD Patricia Stanford Work Phone: [facility] 10-02-2023 09:55-0500 Systolic blood pressure 108 mm[Hg] MD Patricia Stanford Work Phone: [facility] 10-02-2023 07:07-0500 Body height 160.02 cm MD Patricia Stanford Work Phone: [facility] 10-02-2023 07:07-0500 Body weight 56.69 kg MD Patricia Stanford Work Phone: [facility] 08-30-2023 10:30-0500 Body height 157.48 cm Patricia Stanford Other [facility] 08-30-2023 10:30-0500 Body mass index (BMI) [Ratio] 21.73 kg/m2 Patricia Stanford Other [facility] Other 08-30-2023 10:30-0500 Body weight 53.89 kg Patricia Stanford Other [facility] Other 08-30-2023 10:30-0500 Body weight 53.88 kg MD Patricia Stanford Work Phone: [facility] 08-30-2023 10:30-0500 Diastolic blood pressure 74 mm[Hg] Patricia Stanford Other [facility] 08-30-2023 10:30-0500 Systolic blood pressure 122 mm[Hg] Patricia Stanford Other [facility] 08-21-2023 13:45-0500 Body height 157.48 cm Imad Asaad Other [facility] 08-21-2023 13:45-0500 Body mass index (BMI) [Ratio] 21.58 kg/m2 Imad Asaad Other [facility] Other 08-21-2023 13:45-0500 Body weight 53.52 kg Imad Asaad Other [facility] 07-15-2023 11:30-0500 Body height 157.48 cm Patricia Stanford Other [facility] 07-15-2023 11:30-0500 Body mass index (BMI) [Ratio] 21.73 kg/m2 Patricia Stanford Other [facility] Other 07-15-2023 11:30-0500 Body weight 53.89 kg Patricia Stanford Other [facility] Other 07-15-2023 11:30-0500 Body weight 53.88 kg MD Patricia Stanford Work Phone: [facility] 07-15-2023 11:30-0500 Diastolic blood pressure 78 mm[Hg] Patricia Stanford Other [facility] 07-15-2023 11:30-0500 Systolic blood pressure 148 mm[Hg] Patricia Stanford Other [facility] 07-06-2023 09:20-0500 Body height 157.48 cm MD Patricia Stanford Work Phone: [facility] 07-06-2023 09:20-0500 Body weight 55.51 kg MD Patricia Stanford Work Phone: [facility] Encounters Encounter Date Encounter Type Care Provider Facility Start: 03-20-2024 Non-patient / Non-visit MD Marlys Stanford Work Phone: [facility] Work Phone: Start: 03-20-2024 End: 03-20-2024 Admission to same day surgery center MD Patricia Stanford Work Phone: [facility] Work Phone: Start: 03-20-2024 End: 03-20-2024 ambulatory MD Patricia Stanford Work Phone: [facility] Work Phone: Start: 03-18-2024 End: 03-18-2024 ambulatory CARI B APLING Not Available Start: 03-17-2024 Preoperative state MD Patricia bliss Work Phone: [facility] Start: 03-16-2024 End: 03-16-2024 ambulatory CARI B APLING Not Available Start: 03-16-2024 End: 03-16-2024 Patient encounter procedure MD Patricia Stanford Work Phone: [facility] Work Phone: Start: 10-14-2023 End: 10-15-2023 ambulatory Ara Maier MD Facility:[facility] Start: 10-04-2023 End: 10-04-2023 ambulatory Imad Asaad Other [facility] Other Start: 10-04-2023 Telephone encounter Imad Asaad [facility] Start: 10-02-2023 Non-patient / Non-visit MD Marlys Stanford Work Phone: [facility] Gastroenter[facility] Work Phone: Start: 10-02-2023 End: 10-02-2023 Admission to same day surgery center MD Patricia Stanford Work Phone: [facility] Work Phone: Start: 10-02-2023 End: 10-02-2023 ambulatory MD Patricia Stanford Work Phone: [facility] Work Phone: Start: 09-23-2023 End: 09-23-2023 ambulatory Patricia Stanford Other [facility] Other Start: 09-23-2023 Telephone encounter Patricia Stanford [facility] Start: 09-09-2023 End: 09-09-2023 ambulatory CARI B APLING Not Available Start: 09-04-2023 End: 09-04-2023 ambulatory CARI B APLING Not Available Start: 09-03-2023 End: 09-03-2023 ambulatory Patricia Stanford Other [facility] Other Start: 09-03-2023 Telephone encounter Patricia Stanford [facility] Start: 08-30-2023 End: 08-30-2023 ambulatory Patricia Stanford Other [facility] Other Start: 08-30-2023 Office outpatient vi sit 15 minutes Patricia Stanford [facility] Start: 08-30-2023 End: 08-30-2023 Patient encounter procedure MD Patricia Stanford Work Phone: [facility]- Start: 08-23-2023 End: 08-23-2023 ambulatory Patricia Stanford Other [facility] Other Start: 08-23-2023 Telephone encounter Patricia Stanford [facility] Start: 08-21-2023 End: 08-21-2023 ambulatory Imad Asaad Other [facility] Other Start: 08-21-2023 Office outpatient ne w 45 minutes Imad Asaad [facility] Start: 08-21-2023 End: 08-21-2023 Patient encounter procedure MD Patricia Stanford Work Phone: [facility] Work Phone: Start: 07-15-2023 End: 07-15-2023 ambulatory Patricia Stanford Other [facility] Other Start: 07-15-2023 Office outpatient vi sit 15 minutes Patricia Stanford [facility] Start: 07-15-2023 Telephone encounter Patricia Stanford [facility] Start: 07-15-2023 End: 07-15-2023 Patient encounter procedure MD Patricia Stanford Work Phone: [facility] Work Phone: Start: 07-06-2023 End: 07-06-2023 Patient encounter procedure MD Patricia Stanford Work Phone: [facility] Work Phone: Start: 05-06-2023 End: 05-07-2023 ambulatory Ara Maier MD Facility: [facility] Start: 04-22-2023 End: 04-23-2023 ambulatory Ara Maier MD Facility: [facility] Start: 10-03-2022 End: 10-05-[address] PATRICIA STANFORD Facility:[facility] Start: 09-27-2022 End: 09-28-[address] MASSIMO MATTHEWS . Facility:[facility] Start: 09-11-2022 End: 09-11-[address] MASSIMO MATTHEWS . Facility:[facility] Start: 09-07-2022 End: 10-17-[address] MASSIMO MATTHEWS . Facility:[facility] Start: 09-04-2022 End: 09-05-[address] MASSIMO MATTHEWS . Facility:[facility] Start: 07-26-2022 Encounter for preprocedural laboratory examination DR MASSIMO MATTHEWS . [facility] Start: 07-24-2022 End: 07-24-[address] MASSIMO MATTHEWS . Facility:[facility] Start: 07-20-2022 End: 07-21-[address] MASSIMO MATTHEWS . Facility:[facility] Start: 07-20-2022 End: 07-21-2022 Encounter for preprocedural laboratory examination DR MASSIMO MATTHEWS . Facility: Start: 07-11-2022 End: 07-12-[address] MASSIMO MATTHEWS . Facility:[facility] Start: 06-19-2022 End: 06-19-[address] MASSIMO MATTHEWS . Facility: Start: 06-06-2022 End: 06-07-[address] MASSIMO MATTHEWS . Facility: Start: 04-20-2022 End: 04-21-2022 ambulatory ARIADNA NOLAN Facility:[facility] Start: 04-09-2022 End: 04-10-[address] PATRICIA STANFORD Facility: Start: 02-27-2022 End: 02-28-2022 ambulatory DEFAULT PHYSICIAN Facility:[facility] Start: 02-22-2022 End: 02-23-[address] MASSIMO MATTHEWS . Facility: Start: 12-06-2021 ambulatory MICHELE SALDAÑA . Facility:[facility] Start: 11-30-2021 End: 12-01-[address] MASSIMO MATTHEWS . Facility: Start: 10-25-2020 Pre-procedure evaluation check Patricia Stanford Other [facility] Other Procedures Date Procedure Procedure Detail Performing Clinician Start: 03-20-2024 Colonoscopy MD Patricia Stanford Work Phone: Start: 10-02-2023 Esophagogastroduodenoscopy MD Patricia fox Work Phone: Start: 07-10-2017 Screening mammography Patricia Stanford Other Start: 07-19-2016 General examination of patient Patricia Kelsey padilla Other Plan of Treatment Date Care Activity Detail Author Start: 03-20-2024 [facility] Start: 10-02-2023 [facility] Patient Education Hemorrhoids (D C) Know your Meds [facility] Work Phone: Immunizations Immunization Date Immunization Notes Care Provider Kristen abreu 05-17-2022 zoster vaccine, live Patricia Stanford Other [facility] 04-23-2022 influenza virus vaccine, split virus (incl. purified surface antigen) Patricia Stanford Other [facility] Other 04-23-2022 influenza virus vaccine, unspecified formulation MD Patricia Stanford Work Phone: [facility] 04-23-2022 pneumococcal polysaccharide vaccine, 23 valent Patricia Stanford Other [facility] 04-23-2022 tetanus toxoid, adsorbed Patricia Stanford Other [facility] 05-25-2021 influenza virus vaccine, split virus (incl. purified surface antigen) Patricia Stanford Other [facility] Other 05-25-2021 influenza virus vaccine, unspecified formulation MD Patricia Stanford Work Phone: [facility] 10-18-2020 COVID-19 Vaccine Moderna - Documentation Purposes Only Patricia Stanford Other [facility] 09-19-2020 COVID-19 Vaccine Moderna - Documentation Purposes Only Patricia Stanford Other [facility] 04-16-2020 influenza virus vaccine, split virus (incl. purified surface antigen) Patricia Stanford Other [facility] Other 04-16-2020 influenza virus vaccine, unspecified formulation MD Patricia Stanford Work Phone: [facility] 05-12-2019 influenza virus vaccine, split virus (incl. purified surface antigen) Patricia Stanford Other [facility] Other 05-12-2019 influenza virus vaccine, unspecified formulation MD Patricia Stanford Work Phone: [facility] 04-18-2018 influenza virus vaccine, split virus (incl. purified surface antigen) Patricia Stanford Other [facility] Other 04-18-2018 influenza virus vaccine, unspecified formulation MD Patricia Stanford Work Phone: [facility] 07-10-2017 pneumococcal conjuga te vaccine, 13 valent Patricia Stanford Other [facility] 04-18-2017 influenza virus vaccine, split virus (incl. purified surface antigen) Patricia Stanford Other [facility] Other 04-18-2017 influenza virus vaccine, unspecified formulation MD Patricia Stanford Work Phone: [facility] 05-09-2016 influenza virus vaccine, split virus (incl. purified surface antigen) Patricia Stanford Other [facility] Other 05-09-2016 influenza virus vaccine, unspecified formulation MD Patricia Stanford Work Phone: [facility] 05-27-2013 tetanus and diphther ia toxoids, adsorbed, preservative free, for adult use (5 Lf of tetanus toxoid and 2 Lf of diphtheria toxoid) Patricia Stanford Other [facility] 12-24-2011 pneumococcal polysaccharide vaccine, 23 valent Patricia Stanford Other [facility] Payers Date Payer Category Payer Self-pay 2022 Medicare 2022 Unknown 1959 Medicare [id number] 1959 Unknown [id number] 1945 Unknown [id number] 2.16.8 40.1.740215.3.579.2.647 1945 Unknown [id number] 2.16.8 40.1.279165.3.579.2.647 1945 Unknown [id number] 2.16.84 0.1.457035.3.579.2.593 1946 Unknown [id number] 2.16.84 0.1.115273.3.579.2.593 1946 Unknown [id number] 2.16.84 0.1.699124.3.579.2.593 1945 Unknown [id number] 2.16.84 0.1.448935.3.579.2.593 1946 Unknown [id number] 2.16.84 0.1.003734.3.579.2.593 1946 Unknown [id number] 2.16.84 0.1.807037.3.579.2.593 1946 Unknown [id number] 2.16.84 0.1.905051.3.579.2.593 1946 Unknown [id number] 2.16.84 0.1.145936.3.579.2.593 1946 Unknown [id number] 2.16.84 0.1.119598.3.579.2.593 1946 Unknown [id number] 2.16.84 0.1.240345.3.579.2.593 1946 Unknown [id number] 2.16.84 0.1.542267.3.579.2.593 1946 Unknown [id number] 2.16.84 0.1.394760.3.579.2.593 1946 Unknown [id number] 2.16.84 0.1.205094.3.579.2.593 1946 Unknown [id number] 2.16.84 0.1.317712.3.579.2.593 1946 Unknown [id number] 2.16. 840.1.424191.3.579.2.196 1945 Unknown [id number] 2.16. 840.1.995791.3.579.2.196 1946 Unknown [id number] 2.16. 840.1.715432.3.579.2.196 1946 Unknown [id number] 2.16.84 0.1.841483.3.579.2.1259 1946 Unknown [id number] 2.16.84 0.1.656550.3.579.2.1259 1946 Unknown [id number] 2.16.84 0.1.123990.3.579.2.1259 1945 Unknown [id number] 2.16.84 0.1.137565.3.579.2.1259 Medicare Medicare Outpatient [id number] [id number] Unknown [id number] 2.16.8 40.1.394902.3.579.2.531 Social History Date Type Detail Facility Unknown if ever smoked [facility] Other Sex Assigned At Sex Assigned At Bir th [facility] Other Start: 10-02-2023 End: 03-20-2024 Tobacco smoking status NHIS Never smoked tobacco (finding) [facility] Start: 1945 Sex Assigned At Female [facility] Goals Date Patient Goal Desired Activity /State Clinical Notes 11-30-2021 to 03-20-2024 Note Date & Type Note Facility 03-20-[address] [facility] 10-02-[address] Procedure [address] [facility] 08-30-2023 Evaluation note Encounter Date [...] try OTC ones in meantime. Referral placed. [facility] Other 01-10-2024 Evaluation note* Encounter Date Diagnosis Assessment Notes Treatment Notes Treatment Clinical Notes Aug, GERD (gastroesophageal reflux disease) (ICD-10 - K21.9) Aug, Chronic diarrhea (ICD-10 - K52.9) Patient reports that her last colonoscopy was at the [facility] about 11 years ago and that she can not remember who preformed the procedure Aug, Abdominal pain (ICD-10 - R10.9) Aug, Weight loss, unintentional (ICD-10 - R63.4) Aug, Change in bowel habits (ICD-10 - R19.4) Lizbeth is advised to have a colonoscopy ordered, scheduled and prep instructions given today Risks and benefits of procedure explained to patient; patient verbalizes understanding. [facility] Other 12-04-2023 Evaluation note* Encounter Date Diagnosis [...] (ICD-10 - M81.0) Due for Dexa 08/2023 [facility] Other 02-16-2023 NoteCONSULTATION CONSULTATION DATE: 09/27/2022 HISTORY OF PRESENT ILLNESS: This is a 76-year-old female who returns to the clinic status post LES on 09/11/2022. The patient states she was afforded between 50-60% relief. Depending on her physical activity, determines her level of comfort. 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, housework and lifting greatly aggravate her [...] in agreement with this plan.[facility] [id number] NoteCONSULTATION CONSULTATION DATE: 09/04/2022 HISTORY OF PRESENT [...] and would like to proceed.[facility] [id number] NoteCONSULTATION CONSULTATION DATE: 07/11/2022 HISTORY OF PRESENT [...] in the clinic post procedure.[facility] [id number] NoteCONSULTATION PROCEDURE DATE: 07/11/2022 PREOPERATIVE DIAGNOSIS: Bilateral [...] followed up in the clinic.[facility] 06-06-2022 NoteCONSULTATION CONSULTATION DATE: 06/06/2022 HISTORY [...] pain returning. 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 REVIEW OF SYSTEMS, PAST [...] mg q.h.s. A referral to rheumatology near [place] will be sent on her behalf and I highly encouraged her to seek consultation, particularly since she has a familial history of autoimmune diseases. The patient agrees with the plan of care and will be followed up in the office in three months' time. [facility] Signed and Approved by: MICHELE SALDAÑA . 03/02/2022 14:16:00[facility]04-21-2022 NoteCONSULTATION Consultation Date:11/30/2021 PREOPERATIVE DIAGNOSIS: Right [...] and Approved by: MICHELE SALDAÑA . 12/06/2021 16:15:00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 Lying down and using heat decrease her pain. Prior to the procedure, she was in a state of acute pain and was placed on a short term course of [place] 5/325 b.i.d. p.r.n. Patient states she only [...] of care and would like to proceed. [facility] Signed and Approved by: MICHELE SALDAÑA . 12/06/2021 16:15:00[facility] noteNo InformationNort Pure[facility] Other Evaluation noteNo assessment information available [facility] Work Phone: Evaluation note* Diagnosis Onset Date Resolution Status Lumbar spondylosis acute Preoperative clearance acute Situational depression acute [facility] Work Phone: History and physical note Author Sunny Torres [facility] October 02, 2023 8:54am Note Date/Time October 02, 2023 8:54am [facility] [address] [place], [place] [id number] Gastroenterology H&P Signed Patient: Lobo Murdock MR#: [id number] : 1945 Acct:[id number] Age/Sex: 78 / F Adm Date: 4 Loc: Room: Type: [facility] Attending Dr: Sunny Torres MD [...] signed by Sunny Torres MD> 10/02/23 0854 [facility] Work Phone: History and physical note Author Sunny Torres [facility] March 20, 2024 8:43am Note Date/Time March 20, 2024 8:4 3am [facility] [address] [place] [address] Gastroenterology H&P Signed Patient: Lobo Murdock MR#: [id number] : 1945 Acct:[id number] Age/Sex: 78 / F Adm Date: 4 Loc: Room: Type: [facility] Attending Dr: Sunny Torres MD Copies to: MD Patricia Morel MD~ Date of Service: 03/20/2024 HISTORY & PHYSICAL: Patient's history with special [...] 78-year-old female with family history of colon cancer(brother) here for colonoscopy for evaluation of change in bowel habits Family history of GI malignancy? yes PHYSICAL EXAMINATION General appearance: NAD Skin: No jaundice Head: NC/AT Eyes: Anicteric Neck: Supple Lungs: Normal respiratory effort, no use of accessory muscles Abdomen: nondistended Neuro: Ox3. REVIEW OF SYSTEMS Constitutional: Denies malaise, fevers Cardiovascular: Denies chest pain, palpitations Respiratory: Denies shortness of breath, wheezing Gastrointestinal: As per HPI Genitourinary: Denies dysuria, polyuria Musculoskeletal: Denies joint swelling, joint stiffness Neurological: Denies confusion, numbness, tingling Endocrine: Denies fatigue Written informed consent obtained from the patient. Risks (including but not limited to perforation, infection, bloating, bleeding, need for emergent surgeryand loss of life), benefits and alternatives explained and questions answered. The patient verbalized understanding. Based on history patient is an appropriate candidate for the procedure. Sunny Torres M.D. Documented By: Sunny Torres MD 03/20/2442 Signed By: <Electronically signed by Sunny Torres MD> 03/20/24 0843 [facility] Work Phone: History general Narrative - [...] shoulder pain 1982 Hospitalization History migraines 1992 [facility] Other Hospital Discharge instructions Additional Instructions DISCHARGE [...] up in the office - Office number [phone]. [facility] Work Phone: Summary Purpose Family History No Family History Records Found Relationship Condition Age at Onset Recorded Date/T sania father Unknown Malignant neoplasm of prostate Unknown grandparent Unknown grandparent Diabetes mellitus Unknown Unknown Not Specified Malignant neoplasm of ovary Unknown Malignant neoplasm of uterus Unknown brother Malignant neoplasm of colon Unknown brother Malignant neoplasm of throat Unknown Relationship Condition Age at Onset Recorded Date/T sania father Unknown Malignant neoplasm of prostate Unknown grandparent Unknown grandparent Diabetes mellitus Unknown Unknown mother Malignant neoplasm of ovary Unknown Malignant neoplasm of uterus Unknown brother Malignant neoplasm of colon Unknown brother Malignant neoplasm of throat Unknown Advance Directives No Advanced Directives Records Found Advance Directive Response Recorded Date/ Time Advance Directives No September 1:12pm Advance Directive Response Recorded Date/ Time Advance Directives No September 2:12pm Reason for Referral Reason diarrhea x 6 weeks a nd increased heartburn. Diagnosis 1 Chronic diarrhea (K5 2.9) [facility] Referring Provider First Name Patricia Referring Provider Last Name Abdoulaye Referring Provider Specialty [facility] Referred Organization [facility]erred Address [address],[address] Referred Provider Specialty Gastroentero logy Referral Priority Routine Reason *FU 09/06 R foot p ain Diagnosis 1 Pain of left great t oe (M79.675) Referral Organization [facility] Referring Provider First Name Patricia Referring Provider Last Name Abdoulaye Referring Provider Specialty [facility] Referred Organization [facility] Referred Provider Odin Chong Referred Address [address] [place], [place],[address] Referred Provider Specialty Podiatry - S urgical Chiropody Referral Priority Routine General Notes Shefali Carroll 12:44:49 PM >received today, notes locked, ins attached, referral faxed Chief Complaint and Reason for Visit Chief Complaint Right Eye, Itchy, In fected? Stomach/Bowel Issues Ref By Dr. Stanford For Chronic Diarrhea & Left Foot gerd, change in bowel habits gerd, change in bowel habits Chief Complaint presurgical clearanc e, Lumber dcom/infusion change in bowel habits change in bowel habits Reason for Visit Lumbar spondylosis Preoperative clearance Situational depression Additional Source Comments INFORMATION SOURCE (unrecogn ized section and content) DATE CREATED AUTHOR 05/09/2022 [facility] DATE CREATED AUTHOR AUTHOR'S ORGANIZ ATION 11/17/2022 [facility] DATE CREATED AUTHOR AUTHOR'S ORGANIZ ATION 10/18/2023 [facility] DATE CREATED AUTHOR AUTHOR'S ORGANIZ ATION 03/20/2024 [facility] DATE CREATED AUTHOR AUTHOR'S ORGANIZ ATION 03/22/2024 [facility] REASON FOR VISIT (unrecogniz ed section and [...] Other Provider Active Start: October 02, 2023 Team Status: Inactive Member Role Status Dates Patricia Stanford MD Primary Care Provide r, Attending Provider Active Start: March 16, 2024 End: March 16, 2024 Team Status: Inactive Member Role Status Dates Patricia Stanford MD Primary Care Provider Active Start: March 20, 2024 End: March 20, 2024 Sunny Torres MD Attending Provider Active Start: March 20, 2024 End: March 20, 2024 Team Status: Active Member Role Status Dates Patricia Stanford MD Primary Care Provider Active Start: March 20, 2024 Sunny Torres MD Attending Provider, Other Provider Act cara Start: March 20, 2024 FOR RECORDS PERTAINING TO PATIENTS WHO ARE [...] BE BASED ON THE PRIMARY CLINICAL RECORDS. [facility]. provides no warranty or guarantee of the accuracy or completeness of information in this document.
== END 2024-03-24 09:18 | disposition home or self-care (01) ==
LOC: EC 09:18
PROVIDERS: Visit Provider Podiatrist Foot & Ankle Surgery
DX: M79.672 Pain in left foot (principal); M24.675 Ankylosis, left foot
CPT/HCPCS: 73630

== ENCOUNTER 2024-03-25 11:20 | Outpatient (OUT) | payer MEDICARE, SELFPAY ==
--- OUTSIDE RECORDS SUMMARY | 2024-03-25 11:29 | XMS_ITS | CCD ---
Author Organization [facility] Care Team Providers Care Dry Paste Supervisor Name Role Phone PHYSICIAN, DEFAULT Admitting Unavailable [...] Unavailable MD Patricia Stanford Primary Care Provider [phone] MD Melissa Imravindra Attending Provider [phone] Giradha DIAZ, Andri Vcuate Attending Unavailable Darrion DIAZ, Andrius Vytautlong Attending Unavailable Darrion DIAZ, Andrius Vcuate Attending Unavailable MD Patricia Stanford Primary Care Provider [phone] MD Melissa Imravindra Attending Provider APLCARI OWENS Attending Unavailable APLINGCARI B Attending Unavailable APLCARI OWENS Attending Unavailable APLGRACIELA, CARI Keith Attending Unavailable Patricia Stanford Primary Care Unavailable Asaad, Imad Admitting Unavailable Asaad, Imad Attending Unavailable Patricia Stanford Primary Care Unavailable Asaad, Imad Attending Unavailable Asaad, Imad Admitting Unavailable Allergies Allergy Classification Reported Allergen(s) Allergy Type Date of Onset Reaction(s) Facility (8 sources) Calcitonin ([place]) *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 Propensity to adverse reactions Comment:severe weakness [facility] [employer] Other (2 sources) calcitonin; Translations: [calcitonin] Propensity to adverse reactions 4 [facility] Medications Current Medications Medication Drug Class(es) Dates [...] Active Subcutaneous for 0 *Pick strength-form from [facility] for eRX* Aug, Active diclofenac [...] day for 0 days *Pick strength-form from [facility] [employer] for eRX* Oct, Active magnesium oxide 400 mg oral tablet (1 source) Start: 03-13-2024 take 1 tablet by mouth once daily Magnesium Oxide Active 400 MG PO Daily March 13, 2024 12:00am [employer] tablet with a meal Orally Once a day; Note: Source Status: Taking*Pick strength-form from [employer] for eRX*; Provider: Abdoulaye Gomez ( ) Multiple Vitamin (8 sources) take 1 tablet by mouth once daily Multiple Vitamin 1 tablet Orally Once a day Active Kxwtqwnd-Ubfe-Ah-Junaid cium-Mins (Daily Multiple For Women) 18 mg iron-400 mcg-500 mg Ca tablet (1 source) Start: 03-13-2024 take 1 tablet by mouth once daily Lnjnttbg-Buyw-Gd-C alcium-Mins (Daily Multiple For Women) 18 mg [...] Other aftercare (8 sources) 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; Translations: [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] Episodic Other connective [...] Reference Range Facility [facility] 10-02-2023 L Specimen: [id number] Received: 10/02/23 Status: OJ Brice Num: [id number] Spec Type: Surgical Subm Dr: Sunny Torres MD Tissues: A GASTRIC FOR HP (GASTRIC BX R/O H.PYLORI) B Colon Biopsy (RANDOM COLON BX R/O MICROSCO) Procedures: HE/4, Gross/Micro L4/2, H PYLORI Age/ Patient Sex Location Account Attending Physician MurdockLobo 78/F [id number] Sunny Torres MD SPEC NUM: [id number] RECD: 10/02/23 STATUS: OJ BRICE NUM: [id number] TEO: 10/02/[address]: Sunny Torres MD [...] name, date of and random colon Specimen: [id number] Received: 10/02/23 Status: OJ Brice Num: [id number] Spec Type: Surgical Subm Dr: Sunny Torres MD Tissues: A GASTRIC FOR HP (GASTRIC BX R/O H.PYLORI) B Colon Biopsy (RANDOM COLON BX R/O MICROSCO) Procedures: HE/4, Gross/Micro L4/2, H PYLORI Patient: Lobo Murdock [id number] (Continued) Specimen: [id number] Received: 10/02/23 (Continued) Gross Description (Continued) Signed (signature on file) Patito Grimm MD 10/03/23 1430 Specimen: [id number] Received: 10/02/23 Status: OJ Brice Num: [id number] Spec Type: Surgical Subm Dr: Sunny Torres MD Tissues: A GASTRIC FOR HP (GASTRIC BX R/O H.PYLORI) B Colon Biopsy (RANDOM COLON BX R/O MICROSCO) Procedures: HE/4, Gross/Micro L4/2, H PYLORI Patient: Lobo Murdock [id number] (Continued) Specimen: [id number] Received: 10/02/23 (Continued) Gross Description (Continued) biopsy are 2 galvan translucent soft tissue fragments, 0.3 and 0.6 cm in greatest dimensions. Entirely submitted in one cassette labeled B1. CPT Codes [id number] Specimen: [id number] Received: 10/02/23 Status: OJ Brice Num: [id number] Spec Type: Surgical Subm Dr: Sunny Torres MD Tissues: A GASTRIC FOR HP (GASTRIC BX R/O H.PYLORI) B Colon Biopsy (RANDOM COLON BX R/O MICROSCO) Procedures: HE/4, Gross/Micro L4/2, H PYLORI Patient: Lobo Murdock [id number] (Continued) Signed (signature on file) Patito Grimm MD 10/03/23 1430 Normal [facility] CALCIUMon 10-03-2022 Calcium [Mass/Vol] 8.9 mg/dL Normal 8.5-10.1 [facility] Comment on above: Performed By: #### VALERIO MADRIGAL #### [facility] [address] [place] [address] Dr. Dang Grimm CREATININEon 10-03-2022 Creatinine [Mass/Vol] 1.03 mg/dL Critically high 0.55-1.[address] [facility] Comment on above: Performed By: ###VALERIO NIEVES #### [facility] [address] [place] [address] Dr. Dang Grimm EGFR-AF QATARI >60 Normal >=60 [facility] Comment on above: Performed By: #### VALERIO MADRIGAL #### [facility] [address] [place] [address] Dr. Dang Grimm EGFR-NON AF QATARI 52 mL/min/1.73m2 Critically low >=60 [facility] Comment on above: Performed By: #### C VALERIO ADAMS #### [facility] [id number] Dang Grimm Covid-19 PCR ([facility])on SARS-CoV-2 (COVID-19) RNA GENARO+probe Ql (Unsp spec) Not detected Normal NOT DETECTED [facility] Comment on above: Result Comment: This test is not yet approved or cleared by the [place] FDA. When there are no FDA-approved or cleared tests available, and other criteria are met, FDA can make tests available under an emergency access mechanism called an Emergency Use Authorization (EUA). The EUA for this test is supported by the [employer] Manager of Health and Human Service's (HHS's) [...] SARS-CoV-2. Performed By: #### C VDTB #### [facility] [address] [place] [address] Dr. Dang Grimm ANAon 04-20-2022 OCTAVIA PATTERN SPECKLED Normal [facility] Comment on above: Result [...] authority. Performed By: #### 1 0196 #### [facility] [address] [facility]. [address] OCTAVIA SCREEN 1:40 Normal <1:40,1:40 [facility] Comment on above: Result Comment: Test performed using MELCHOR IFA OCTAVIA Hep-2 Test, a pre-standardized assay designed for the qualitative and semi-quantitative detection of antinuclear antibodies. Performed By: #### 1 0196 #### [facility] [address] [facility]. [address] C REACTIVE PROTEINon CRP [Mass/Vol] 2.5 mg/L Normal 0.0-7.0 [facility] Comment on above: Performed By: #### 6 1405, 59201 #### [facility] [address] CBC COMPLETE BLOOD COUNTon 0 04-20-2022 Erythrocyte distribution width (RBC) [Ratio] 12.4 % Normal 11.5-15.0 [facility] Comment on above: Performed By: #### 5 6506, 41995 #### [facility] [address] Hematocrit (Bld) [Volume fraction] 41.6 % Normal 36.0-45.0 [facility] Comment on above: Performed By: #### 5 6506, 27618 #### [facility] [address] [facility]. [address] Hemoglobin (Bld) [Mass/Vol] 13.7 g/dL Normal 12.0-15.0 [facility] Comment on above: Performed By: #### 5 6506, 37464 #### [facility] [address] [facility]. [address] MCH (RBC) [Entitic mass] 31.4 pg Normal 27.0-33.0 [facility] Comment on above: Performed By: #### 5 6506, 25038 #### [facility] [address] [place] [address], [facility] MCHC (RBC) [Mass/Vol] 32.9 g/dL Normal 32.0-35.0 [facility] Comment on above: Performed By: #### 5 650, 59731 #### [facility] [address] [place] [id number], [facility] MCV (RBC) [Entitic vol] 95.2 fL Normal 82.0-98.0 [facility] Comment on above: Performed By: #### 5 6505, 39264 #### [facility] [address] [place] [address], [facility] Nucleated RBC/100 WBC (Bld) [Ratio] 0 % Normal 0-0 [facility] Comment on above: Performed By: #### 5 6505, 75059 #### [facility] [address] [place] [address], [facility] PLAT CNT 248 10*3/uL Normal 150-400 [facility] Comment on above: Performed By: #### 5 650, 27364 #### [facility] [address] [facility] [place] [place] [address], [facility] RBC (Bld) [#/Vol] 4.37 10*6/uL Normal 3.80-5.00 [facility] Comment on above: Performed By: #### 5 650, 29068 #### [facility] [address] [place] [address], [facility] WBC (Bld) [#/Vol] 5.54 10*3/uL Normal 4.00-10.60 [facility] Comment on above: Performed By: #### 5 650, 59837 #### [facility] [address] [place] [address], [facility] CERVICAL SPINE 4 OR 5 VIEWSo n 04-20-2022 CERVICAL SPINE 4 OR 5 VIEWS [facility] Department of Radiology [address] [place] [address] ===== Patient Name: LOBO MURDOCK : 1945 Sex: F Age: Race: White Pt. Location: [facility] Patient Status: O Ordered Date: 04/20/2022 10:50:00 AM Completed Date: 04/20/2022 11:42 AM Requesting Provider: MICHAEL HAHN Attending Provider: ARIADNA NOLAN Report Copy To: Signs & Symptoms: M54.2 Cervicalgia I10 History: [place] Comments: Views (X-RAY, CERVICAL SPINE): AP, Lateral, [...] C3 Electronically signed: Christian Upton. Transcribed by: [email or web address], User Resident: Electronically Signed by: CHRISTIAN UPTON @ 04/20/2022 02:33 PM Normal [facility] Comment on above: Order Comment: Views (X-RAY, CERVICAL SPINE): AP, Lateral, Odontoid, Flexion, Extension COMP METABOLIC PANELon 04-20 Albumin [Mass/Vol] 4.1 g/dL Normal 3.5-5.7 [facility] Comment on above: Performed By: #### 3 5515, 75447, 92934 #### [facility] [address] [place] [address], [place] ALKALINE PHOSPH 63 IU/L Normal 34-104 [facility] Comment on above: Performed By: #### 3 5515, 09935, 43058 #### [facility] [address] [place] [address], [place] ALT [Catalytic activity/Vol] 15 U/L Normal 7-52 [facility] Comment on above: Performed By: #### 3 5515, 35995, 42141 #### [facility] [address] [place] [address], [place] AST [Catalytic activity/Vol] 22 U/L Normal 13-39 [facility] Comment on above: Performed By: #### 3 5515, 01364, 61495 #### [facility] [address] [place] [address], [place] Bilirubin [Mass/Vol] 0.5 mg/dL Normal 0.3-1.0 [facility] Comment on above: Performed By: #### 3 5515, 26586, 01906 #### [facility] [address] [place] [address], [place] Calcium [Mass/Vol] 10.2 mg/dL Normal 8.6-10.3 [facility] Comment on above: Performed By: #### 3 5515, 13398, 34608 #### [facility] [address] [place] [address], [facility] Chloride [Moles/Vol] 105 mmol/L Normal 98-107 [facility] Comment on above: Performed By: #### 3 5515, 33038, 03951 #### [facility] [address] [place] [address], [place] CO2 [Moles/Vol] 25 mmol/L Normal 21-31 [facility] Comment on above: Performed By: #### 3 5515, 60296, 42226 #### [facility] [address] [place] [address], [facility] Creatinine [Mass/Vol] 0.95 mg/dL Normal 0.60-1.20 [facility] Comment on above: Performed By: #### 3 5515, 83935, 62273 #### [facility] [address] [place] [address], [place] GFR/1.73 sq M.predicted among non-blacks MDRD (S/P/Bld) [Vol rate/Area] mL/min/{1.73_m2} Normal >60 [facility] Comment on above: Result Comment: [facility]'s estimated glomerular filtration rate (eGFR) will no [...] of individuals. Performed By: #### 3 5515, 01060, 55948 #### [facility] [address] [place] [address], [place] Glucose [Mass/Vol] 88 mg/dL Normal 70-100 [facility] Comment on above: Performed By: #### 3 5515, 59063, 58732 #### [facility] [address] [place] [address], [facility] Potassium [Moles/Vol] 4.5 mmol/L Normal 3.5-5.1 [facility] Comment on above: Performed By: #### 3 5515, 53880, 64754 #### [facility] [address] [place] [address], [facility] Protein [Mass/Vol] 6.8 g/dL Normal 6.0-8.3 [facility] Comment on above: Performed By: #### 3 5515, 76919, 56857 #### [facility] [address] [place] [address], [facility] Sodium [Moles/Vol] 138 mmol/L Normal 136-145 [facility] Comment on above: Performed By: #### 3 5515, 98192, 44337 #### [facility] [address] [place] [address], [facility] Urea nitrogen [Mass/Vol] 29 mg/dL High 7-25 [facility] Comment on above: Performed By: #### 3 5515, 28098, 17865 #### [facility] [address] CYCLIC CITRULLINATED PEPTIDE [place] [id number] 04-20-2022 CYCLIC CIT PEP 2 Units Normal 0-19 [facility] Comment on above: Result Comment: INTE [...] be monitored and testing repeated. Performed By: [facility] [address] [place] [address] Plugger: Brett Tamez MD, PhD FERRITINon 04-20-2022 Ferritin [Mass/Vol] 43 ng/mL Normal 11-307 [facility] Comment on above: Performed By: #### 3 5515, 09564, 36722 #### [address] HAND LEFT 3 [facility] 04-20-2022 HAND LEFT 3 [facility] Department of Radiology [address] [place] [id number] ===== Patient Name: LOBO MURDOCK : 1945 Sex: F Age: Race: White Pt. Location: [facility] Patient Status: O Ordered Date: 04/20/2022 10:50:00 AM Completed Date: 04/20/2022 11:42 AM Requesting Provider: MICHAEL HAHN Attending Provider: ARIADNA NOLAN Report Copy To: Signs & Symptoms: M79.641 Pain in right hand I10 History: [place] Comments: Evaluate Exam: HAND LEFT 3 [facility] ===== HAND LEFT 3 VWS 04/20/2022 11:42 [...] carpometacarpal joint. No acute bony pathology. Approved by:iNrmala Vergara04/20/2022 11:49 AM. I, Chelita Lazcano,have reviewed the image(s) and agree with the findings in this report. Electronically signed: Chelita Lazcano. Transcribed by: [email or web address], User Resident: NIRMALA MONGE Electronically Signed by: CHELITA LAZCANO @ 04/20/2022 01:29 PM I personally read this/these film(s) with this resident Normal [facility] Comment on above: Order Comment: Evalu ate HAND RIGHT 3 VWSon 2 HAND RIGHT 3 S [facility] Department of Radiology [address] [place] [id number] ===== Patient Name: LOBO MURDOCK : 1945 Sex: F Age: Race: White Pt. Location: [facility] Patient Status: O Ordered Date: 04/20/2022 10:50:00 AM Completed Date: 04/20/2022 11:42 AM Requesting Provider: MICHAEL HAHN Attending Provider: ARIADNA NOLAN Report Copy To: Signs & Symptoms: M79.641 Pain in right hand I10 History: [place] Comments: Evaluate Exam: HAND RIGHT 3 VWS [...] report. Electronically signed: Chelita Lazcano. Transcribed by: [email or web address], User Resident: NIRMALA MONGE Electronically Signed by: CHELITA LAZCANO @ 04/20/2022 01:43 PM I personally read this/these film(s) with this resident Normal [facility] Comment on above: Order Comment: Evalu ate RHEUMATOID FACTOR SERUMon RA <20 Normal 0-20 [facility] Comment on above: Performed By: #### 6 1405, 55329 #### [facility] [address] SEDIMENTATION RATEon 022 SED RATE 38 mm/hr High 0-20 [facility] Comment on above: Performed By: #### 5 5266, 34578 ####[facility] [place] [address], [facility] TIBC- INCLUDES IRONon 2021 FE SATURATION 30 % Normal 20-50 [facility] Comment on above: Performed By: #### 3 5515, 87667, 99231 #### [facility] [address] [place] [address], [facility] Iron [Mass/Vol] 115 ug/dL Normal 50-212 [facility] Comment on above: Performed By: #### 3 5515, 03272, 01291 #### [facility] [address] [place] [address], [facility] TIBC 378 mcg/dL Normal 250-450 [facility] Comment on above: Performed By: #### 3 5515, 78364, 62295 #### [facility] [address] [place] [address], [facility] UIBC 263 mcg/dL Normal 155-355 [facility] Comment on above: Performed By: #### 3 5515, 17132, 35209 #### [facility] [address] [place] [address], [facility] CALCIUMon 04-09-2022 Calcium [Mass/Vol] 9.6 mg/dL Normal 8.5-10.1 [facility] Comment on above: Performed By: #### VALERIO MADRIGAL #### [facility] [address] [address] [address] Dang Grimm CREATININEon 04-09-2022 Creatinine [Mass/Vol] 1.07 mg/dL Critically high 0.55-1.[address] [facility] Comment on above: Performed By: #### VALERIO MADRIGAL #### [facility] [address] [address] [address] Dang Grimm EGFR-AF QATARI >60 Normal >=60 [facility] Comment on above: Performed By: #### VALERIO MADRIGAL #### [facility] [address] [address] [address] Dang Grimm EGFR-NON AF QATARI 50 mL/min/1.73m2 Critically low >=60 [facility] Comment on above: Performed By: #### C VALERIO ADAMS #### [facility] [address] [address] [address] Dang Grimm Vital Signs Date Time Vital Sign Value Performing Clinician Facility 03-20-2024 09:15-0400 Diastolic blood pressure 62 mm[Hg] MD Patricia Stanford Work Phone: [facility] 03-20-2024 09:15-0400 Heart rate 72 /min MD Patricia Stanford Work Phone: [facility] 03-20-2024 09:15-0400 Respiratory rate 20 /min MD Patricia Stanford Work Phone: [facility] 03-20-2024 09:15-0400 SaO2% (BldA) [Mass fraction] 99 % MD Patricia Stanford Work Phone: [facility] 03-20-2024 09:15-0400 Systolic blood pressure 115 mm[Hg] MD Patricia Stanford Work Phone: [facility] 03-20-2024 07:18-0400 Body height 156.84 cm MD Patricia Stanford Work Phone: [facility] 03-20-2024 07:18-0400 Body weight 55.33 kg MD Patricia Stanford Work Phone: [facility] 03-16-2024 09:04-0400 Body height 156.84 cm MD Patricia Stanford Work Phone: [facility] 03-16-2024 09:04-0400 Body mass index (BMI) [Ratio] 22.8 kg/m2 MD Patricia Stanford Work Phone: [facility] 03-16-2024 09:04-0400 Body weight 56.24 kg MD Patricia Stanford Work Phone: [facility] 03-16-2024 09:04-0400 Diastolic blood pressure 72 mm[Hg] MD Patricia Stanford Work Phone: [facility] 03-16-2024 09:04-0400 Heart rate 81 /min MD Patricia Stanford Work Phone: [facility] 03-16-2024 09:04-0400 Systolic blood pressure 122 mm[Hg] MD Patricia Stanford Work Phone: [facility] 10-02-2023 09:55-0500 Diastolic blood pressure 67 mm[Hg] MD Patricia Stanford Work Phone: [facility] 10-02-2023 09:55-0500 Heart rate 80 /min MD Patricia Stanford Work Phone: [facility] 10-02-2023 09:55-0500 Respiratory rate 16 /min MD Patricia Stanford Work Phone: [facility] 10-02-2023 09:55-0500 SaO2% (BldA) [Mass fraction] 99 % MD Patricia Stanford Work Phone: [facility] 10-02-2023 09:55-0500 Systolic blood pressure 108 mm[Hg] MD Patricia Stanford Work Phone: [facility] 10-02-2023 07:07-0500 Body height 160.02 cm MD Patricia Stanford Work Phone: [facility] 10-02-2023 07:07-0500 Body weight 56.69 kg MD Patricia Stanford Work Phone: [facility] 08-30-2023 10:30-0500 Body height 157.48 cm Patricia Stanford Other [facility] 08-30-2023 10:30-0500 Body mass index (BMI) [Ratio] 21.73 kg/m2 Patricia Stanford Other [facility] Other 08-30-2023 10:30-0500 Body weight 53.89 kg Patricia Stanford Other [facility] Other 08-30-2023 10:30-0500 Body weight 53.88 kg MD Patricia Stanford Work Phone: [facility] 08-30-2023 10:30-0500 Diastolic blood pressure 74 mm[Hg] Patricia Stanford Other [facility] 08-30-2023 10:30-0500 Systolic blood pressure 122 mm[Hg] Patricia Stanford Other [facility] 08-21-2023 13:45-0500 Body height 157.48 cm Imad Asaad Other [facility] 08-21-2023 13:45-0500 Body mass index (BMI) [Ratio] 21.58 kg/m2 Imad Asaad Other [facility] Other 08-21-2023 13:45-0500 Body weight 53.52 kg Imad Asaad Other [facility] 07-15-2023 11:30-0500 Body height 157.48 cm Patricia Stanford Other [facility] 07-15-2023 11:30-0500 Body mass index (BMI) [Ratio] 21.73 kg/m2 Patricia Stanford Other [facility] Other 07-15-2023 11:30-0500 Body weight 53.89 kg Patricia Stanford Other [facility] Other 07-15-2023 11:30-0500 Body weight 53.88 kg MD Patricia Stanford Work Phone: [facility] 07-15-2023 11:30-0500 Diastolic blood pressure 78 mm[Hg] Patricia Stanford Other [facility] 07-15-2023 11:30-0500 Systolic blood pressure 148 mm[Hg] Patricia Stanford Other [facility] 07-06-2023 09:20-0500 Body height 157.48 cm MD Patricia Stanford Work Phone: [facility] 07-06-2023 09:20-0500 Body weight 55.51 kg MD Patricia Stanford Work Phone: [facility] Encounters Encounter Date Encounter Type Care Provider Facility Start: 03-20-2024 Non-patient / Non-visit MD Marlys Stanford Work Phone: [facility] G[facility]enter[facility] Work Phone: Start: 03-20-2024 End: 03-20-2024 Admission to same day surgery center MD Patricia Stanford Work Phone: [facility] Work Phone: Start: 03-20-2024 End: 03-20-2024 ambulatory MD Patricia Stanford Work Phone: [facility] Work Phone: Start: 03-18-2024 End: 03-18-2024 ambulatory CARI B APLING Not Available Start: 03-17-2024 Preoperative state MD Patricia bliss Work Phone: [facility] Start: 03-16-2024 End: 03-16-2024 ambulatory CARI B APLING Not Available Start: 03-16-2024 End: 03-16-2024 Patient encounter procedure MD Patricia Stanford Work Phone: [facility] Work Phone: Start: 10-14-2023 End: 10-15-2023 ambulatory Ara Maier MD Facility:[facility] Start: 10-04-2023 End: 10-04-2023 ambulatory Imad Asaad Other [facility] Other Start: 10-04-2023 Telephone encounter Imad Asaad [facility] Start: 10-02-2023 Non-patient / Non-visit MD Marlys Satnford Work Phone: [facility] Gastroenterology Work Phone: Start: 10-02-2023 End: 10-02-2023 Admission to same day surgery center MD Patricia Stanford Work Phone: [facility] Work Phone: Start: 10-02-2023 End: 10-02-2023 ambulatory MD Patricia Stanford Work Phone: [facility] Work Phone: Start: 09-23-2023 End: 09-23-2023 ambulatory Patricia Stanford Other [facility] Other Start: 09-23-2023 Telephone encounter Patricia Stanford [facility] Start: 09-09-2023 End: 09-09-2023 ambulatory CARI B APLING Not Available Start: 09-04-2023 End: 09-04-2023 ambulatory CARI B APLING Not Available Start: 09-03-2023 End: 09-03-2023 ambulatory Patricia Stanford Other [facility] Other Start: 09-03-2023 Telephone encounter Patricia Stanford [facility] Start: 08-30-2023 End: 08-30-2023 ambulatory Patricia Stanford Other [facility] Other Start: 08-30-2023 Office outpatient vi sit 15 minutes Patricia Stanford [facility] Start: 08-30-2023 End: 08-30-2023 Patient encounter procedure MD Patricia Stanford Work Phone: [facility]- Start: 08-23-2023 End: 08-23-2023 ambulatory Patricia Stanford Other [facility] Other Start: 08-23-2023 Telephone encounter Patricia Stanford [facility] Start: 08-21-2023 End: 08-21-2023 ambulatory Imad Asaad Other [facility] Other Start: 08-21-2023 Office outpatient ne w 45 minutes Imad Asaad [facility] Start: 08-21-2023 End: 08-21-2023 Patient encounter procedure MD Patricia Stanford Work Phone: [facility] Work Phone: Start: 07-15-2023 End: 07-15-2023 ambulatory Patricia Stanford Other [facility] Other Start: 07-15-2023 Office outpatient vi sit 15 minutes Patricia Stanford [facility] Start: 07-15-2023 Telephone encounter Patricia Stanford [facility] Start: 07-15-2023 End: 07-15-2023 Patient encounter procedure MD Patricia Stanford Work Phone: [facility] Work Phone: Start: 07-06-2023 End: 07-06-2023 Patient encounter procedure MD Patricia Stanford Work Phone: [facility] Work [...] laboratory examination DR MASSIMO MATTHEWS . [facility] Start: 07-24-2022 End: 07-24-[address] [...] Start: 04-20-2022 End: 04-21-2022 ambulatory ARIADNA NOLAN Facility:[facility] Start: 04-09-2022 End: 04-10-[address] PATRICIA STANFORD Facility: Start: 02-27-2022 End: 02-28-2022 ambulatory DEFAULT PHYSICIAN Facility:[facility] Start: 02-22-2022 End: 02-23-[address] MASSIMO MATTHEWS . Facility: Start: 12-06-2021 ambulatory MICHELE SALDAÑA . Facility:[facility] Start: 11-30-2021 End: 12-01-[address] MASSIMO MATTHEWS . Facility: Start: 10-25-2020 Pre-procedure evaluation check Patricia Stanford Other [facility] Other Procedures Date Procedure Procedure Detail Performing Clinician Start: 03-20-2024 Colonoscopy MD Patricia Stanford Work Phone: Start: 10-02-2023 Esophagogastroduodenoscopy MD Patricia fox Work Phone: Start: 07-10-2017 Screening mammography Patricia Stanford Other Start: 07-19-2016 General examination of patient Patricia Kelsey padilla Other Plan of Treatment Date Care Activity Detail Author Start: 03-20-2024 [facility] Start: 10-02-2023 [facility] Patient Education Hemorrhoids (D C) Know your Meds [facility] Work Phone: Immunizations Immunization Date Immunization Notes Care Provider Kristen abreu 05-17-2022 zoster vaccine, live Patricia Stanford Other [facility] 04-23-2022 influenza virus vaccine, split virus (incl. purified surface antigen) Patricia Stanford Other [facility] Other 04-23-2022 influenza virus vaccine, unspecified formulation MD Patricia Stanford Work Phone: [facility] 04-23-2022 pneumococcal polysaccharide vaccine, 23 valent Patricia Stanford Other [facility] 04-23-2022 tetanus toxoid, adsorbed Patricia Stanford Other [facility] 05-25-2021 influenza virus vaccine, split virus (incl. purified surface antigen) Patricia Stanford Other [facility] Other 05-25-2021 influenza virus vaccine, unspecified formulation MD Patricia Stanford Work Phone: [facility] 10-18-2020 COVID-19 Vaccine Moderna - Documentation Purposes Only Patricia Stanford Other [facility] 09-19-2020 COVID-19 Vaccine Moderna - Documentation Purposes Only Patricia Stanford Other [facility] 04-16-2020 influenza virus vaccine, split virus (incl. purified surface antigen) Patricia Stanford Other [facility] Other 04-16-2020 influenza virus vaccine, unspecified formulation MD Patricia Stanford Work Phone: [facility] 05-12-2019 influenza virus vaccine, split virus (incl. purified surface antigen) Patricia Stanford Other [facility] Other 05-12-2019 influenza virus vaccine, unspecified formulation MD Patricia Stanford Work Phone: [facility] 04-18-2018 influenza virus vaccine, split virus (incl. purified surface antigen) Patricia Stanford Other [facility] Other 04-18-2018 influenza virus vaccine, unspecified formulation MD Patricia Stanford Work Phone: [facility] 07-10-2017 pneumococcal conjuga te vaccine, 13 valent Patricia Stanford Other [facility] 04-18-2017 influenza virus vaccine, split virus (incl. purified surface antigen) Patricia Stafnord Other [facility] Other 04-18-2017 influenza virus vaccine, unspecified formulation MD Patricia Stanford Work Phone: [facility] 05-09-2016 influenza virus vaccine, split virus (incl. purified surface antigen) Patricia Stanford Other [facility] Other 05-09-2016 influenza virus vaccine, unspecified formulation MD Patricia Stanford Work Phone: [facility] 05-27-2013 tetanus and diphther ia toxoids, adsorbed, preservative free, for adult use (5 Lf of tetanus toxoid and 2 Lf of diphtheria toxoid) Patricia Stanford Other [facility] 12-24-2011 pneumococcal polysaccharide vaccine, 23 valent Patricia Stanford Other [facility] Payers Date Payer Category Payer Self-pay 2022 Medicare 2022 Unknown 1959 Medicare [id number] 1959 Unknown [id number] 1945 Unknown [id number] 2.16.8 40.1.438722.3.579.2.647 1945 Unknown [id number] 2.16.8 40.1.165685.3.579.2.647 1945 Unknown [id number] 2.16.84 0.1.177285.3.579.2.593 1945 Unknown [id number] 2.16.84 0.1.354671.3.579.2.593 1945 Unknown [id number] 2.16.84 0.1.400171.3.579.2.593 1945 Unknown [id number] 2.16.84 0.1.726539.3.579.2.593 1945 Unknown [id number] 2.16.84 0.1.109535.3.579.2.593 1945 Unknown [id number] 2.16.84 0.1.305543.3.579.2.593 1945 Unknown [id number] 2.16.84 0.1.389513.3.579.2.593 1945 Unknown [id number] 2.16.84 0.1.090788.3.579.2.593 1946 Unknown [id number] 2.16.84 0.1.830442.3.579.2.593 1946 Unknown [id number] 2.16.84 0.1.205932.3.579.2.593 1946 Unknown [id number] 2.16.84 0.1.576639.3.579.2.593 1946 Unknown [id number] 2.16.84 0.1.121128.3.579.2.593 1946 Unknown [id number] 2.16.84 0.1.269798.3.579.2.593 1946 Unknown [id number] 2.16.84 0.1.356520.3.579.2.593 1946 Unknown [id number] 2.16. 840.1.499167.3.579.2.196 1945 Unknown [id number] 2.16. 840.1.977968.3.579.2.196 1945 Unknown [id number] 2.16. 840.1.950177.3.579.2.196 1945 Unknown [id number] 2.16.84 0.1.264412.3.579.2.1259 1945 Unknown [id number] 2.16.84 0.1.462216.3.579.2.1259 1945 Unknown [id number] 2.16.84 0.1.817645.3.579.2.1259 1945 Unknown [id number] 2.16.84 0.1.205072.3.579.2.1259 Medicare Medicare Outpatient [id number] [id number] Unknown [id number] 2.16.8 40.1.430774.3.579.2.531 Social History Date Type Detail Facility Unknown if ever smoked [facility] Other Sex Assigned At Sex Assigned At Bir th [facility] Other Start: 10-02-2023 End: 03-20-2024 Tobacco smoking status NHIS Never smoked tobacco (finding) [facility] Start: 1945 Sex Assigned At Female F [facility] Goals Date Patient Goal Desired Activity /State Clinical Notes 11-30-2021 to 03-20-2024 Note Date & Type Note Facility 03-20-2024 Procedure note [facility] 10-02-2023 Procedure note [facility] 08-30-2023 Evaluation note Encounter Date Diagnosis Assessment [...] try OTC ones in meantime. Referral placed. [facility] Other 01-10-2024 Evaluation note* Encounter Date Diagnosis Assessment Notes Treatment Notes Treatment Clinical Notes Aug, GERD (gastroesophageal reflux disease) (ICD-10 - K21.9) Aug, Chronic diarrhea (ICD-10 - K52.9) Patient reports that her last colonoscopy was at the [facility] about 11 years ago and that she can not remember who preformed the procedure Aug, Abdominal pain (ICD-10 - R10.9) Aug, Weight loss, unintentional (ICD-10 - R63.4) Aug, Change in bowel habits (ICD-10 - R19.4) Lizbeth is advised to have a colonoscopy ordered, scheduled and prep instructions given today Risks and benefits of procedure explained to patient; patient verbalizes understanding. [facility] Other 12-04-2023 Evaluation note* Encounter Date Diagnosis [...] (ICD-10 - M81.0) Due for Dexa 08/2023 [facility] Other 02-16-2023 NoteCONSULTATION CONSULTATION DATE: 09/27/2022 HISTORY OF PRESENT ILLNESS: This is a 76-year-old female who returns to the clinic status post LES on 09/11/2022. The patient states she was afforded between 50-60% relief. Depending on her physical activity, determines her level of comfort. Activities such as standing, walking, lying, analytics specialist hours, housework and lifting greatly aggravate her [...] Patient is in agreement with this plan.[id number] NoteCONSULTATION CONSULTATION DATE: 09/04/2022 HISTORY OF PRESENT [...] patient understands and would like to proceed.[facility] [id number] NoteCONSULTATION CONSULTATION DATE: 07/11/2022 HISTORY OF PRESENT [...] followed up in the clinic post procedure.[facility] [id number] NoteCONSULTATION PROCEDURE DATE: 07/11/2022 PREOPERATIVE DIAGNOSIS: Bilateral [...] will be followed up in the clinic.[facility] 06-06-2022 NoteCONSULTATION CONSULTATION DATE: 06/06/2022 [...] pain returning. 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 The patient has not seen a veterinary laboratory diagnostician in the past. REVIEW OF SYSTEMS, PAST [...] mg q.h.s. A referral to rheumatology near [place] will be sent on her behalf and I highly encouraged her to seek consultation, particularly since she has a familial history of autoimmune diseases. The patient agrees with the plan of care and will be followed up in the office in three months' time. [facility] Signed and Approved by: MICHELE SALDAÑA . 03/02/2022 14:16:00[facility]04-21-2022 NoteCONSULTATION Consultation Date:11/30/2021 PREOPERATIVE DIAGNOSIS: Right [...] and Approved by: MICHELE SALDAÑA . 12/06/2021 16:15:00[facility]04-21-2022 NoteCONSULTATION Consultation Date:11/30/2021 PAIN MANAGEMENT CONSULTATION [...] her pain are twisting, turning, pushing, pulling, analytics specialist hours, lifting and transitioning positions. Lying down and using heat decrease her pain. Prior to the procedure, she was in a state of acute pain and was placed on a short term course of [place] 5/325 b.i.d. p.r.n. Patient states she only [...] of care and would like to proceed. [facility] Signed and Approved by: MICHELE SALDAÑA . 12/06/2021 16:15:00[facility] HospitalEvaluation noteNo InformationNort [employer] Other Evaluation noteNo assessment information available [facility] Work Phone: Evaluation note* Diagnosis Onset Date Resolution Status Lumbar spondylosis acute Preoperative clearance acute Situational depression acute [facility] Work Phone: History and physical note Author Sunny Torres [facility] October 02, 2023 8:54am Note Date/Time October 02, 2023 8:54am [facility] [address] [place], [place] [id number] Gastroenterology H&P Signed Patient: Lobo Murdock MR#: [id number] : 1945 Acct:[id number] Age/Sex: 78 / F Adm Date: 4 Loc: Room: Type: [facility] Attending Dr: Sunny Torres MD Copies [...] Sunny Torres MD> 10/02/23 0854 [facility] Work Phone: History and physical note Author Sunny Torres [facility] March 20, 2024 8:43am Note Date/Time March 20, 2024 8:4 3am [facility] [address] [place] [address] Gastroenterology H&P Signed Patient: Lobo Murdock MR#: [id number] : 1945 Acct:[id number] Age/Sex: 78 / F Adm Date: 4 Loc: Room: Type: [facility] Attending Dr: Sunny Torres MD Copies [...] signed by Sunny Torres MD> 03/20/24 0843 [facility] Work Phone: History general Narrative - [...] shoulder pain 1982 Hospitalization History migraines 1992 [facility] Other Hospital Discharge instructions Additional Instructions DISCHARGE [...] stomach, liquids high in sugar content (soda, Igro-Aid, non-acid juices) are recommended. - You can resume normal activities tomorrow. FOLLOW UP & RECOMMENDATIONS: -Notify the doctor if you have any problems. -Repeat colonoscopy due to inadequate prep -Follow up pathology -Pantoprazole 40 mg daily -Follow up in the office - Office number [phone]. [facility] Work Phone: Summary Purpose Family History [...] 1 Chronic diarrhea (K5 2.9) Referral Organization [facility] pip[facility] Referring Provider First Name Patricia Referring Provider Last Name Abdoulaye Referring Provider Specialty [facility] Referred Organization [facility] Referred Address [address],[address] Referred Provider Specialty Gastroentero logy Referral Priority Routine Reason *FU 09/06 R foot p ain Diagnosis 1 Pain of left great t oe (M79.675) Referral Organization [facility] Referring Provider First Name Patricia Referring Provider Last Name Abdoulaye Referring Provider Specialty [facility] Referred Organization [facility] Referred Provider Odin Chong Referred Address [address] [place], [place],[address] Referred Provider Specialty Podiatry - S urgical [...] section and content) DATE CREATED AUTHOR 05/09/2022 [facility] DATE CREATED AUTHOR AUTHOR'S ORGANIZ ATION 11/17/2022 [facility] DATE CREATED AUTHOR AUTHOR'S ORGANIZ ATION 10/18/2023 [facility] DATE CREATED AUTHOR AUTHOR'S ORGANIZ ATION 03/20/2024 [facility] DATE CREATED AUTHOR AUTHOR'S ORGANIZ ATION 03/22/2024 [facility] y[facility] REASON FOR VISIT (unrecogniz ed [...] 02, 2023 End: October 02, 2023 Sunny oTrres MD Attending Provider Active Start: October 02, [...] BE BASED ON THE PRIMARY CLINICAL RECORDS. [facility]. provides no warranty or guarantee of the accuracy or completeness of information in this document.
== END 2024-03-25 11:21 | disposition home or self-care (01) ==
LOC: LAB 11:20
PROVIDERS: Visit Provider Orthopaedic Surgery Orthopaedic Surgery of the Spine
DX: Z01.812 Encounter for preprocedural laboratory examination (principal); M51.37 Other intervertebral disc degeneration, lumbosacral region
CPT/HCPCS: 36415; 86850; 86900; 86901

== ENCOUNTER 2024-03-27 12:40 | Observation (INO) | payer MEDICARE, SELFPAY ==
[2024-03-05 12:41] VITALS: BP 106/70; PULSE 90; TEMP 36.3; O2SAT 98; BMI 22.4
[2024-03-27] VITALS (23 sets, daily range): BP systolic 86–138; BP diastolic 40–66; PULSE 61–102; TEMP 36.4–37; O2SAT 87–100; BMI 21.4
--- NOTE | 2024-03-27 | FL_ITS ---
[address] [address] Patient Name: LOBO MURDOCK MRN: [id number] date: 1945 Sex: F [facility]igned [facility] Current Patient Location: [facility] Accession/Order Number: [id number] Exam Date: 03/27/2024 09:20 Report Date: 03/27/2024 11:56 At the request of: VERONICA CARCAMO Procedure: FL fluoroscopy <1hr NON-READ EXAM: FL fluoroscopy <1hr NON-READ HISTORY: TECHNIQUE: FINDINGS: Please see Operative Report. Electronically authenticated by: RADIOLOGIST NO Date: 03/27/2024 11:56
--- OUTSIDE RECORDS SUMMARY | 2024-03-27 06:25 | XMS_ITS | CCD ---
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 Name Role Phone PHYSICIAN, DEFAULT Admitting Unavailable PHYSICIAN, DEFAULT Attending Unavailable ALT-DANIEL, BRINDA Primary Care Unavailable OVIDOIARIADNA LINDSEY Admitting Unavailable OVIDIO, ARIADNA Cook Attending [...] Care Provider MD Melissa Imravindra Attending Provider Giradha DIAZ, Andri Vcuate Attending Unavailable Darrion DIAZ, Andrius Vytautlong Attending Unavailable Darrion DIAZ, Andrius Vcuate Attending Unavailable MD Patricia Stanford Primary Care Provider MD Melissa Imravindra Attending Provider [phone] APLCARI OWENS Attending Unavailable APLINGCARI B Attending Unavailable APLCARI OWENS Attending Unavailable APLGRACIELA, CARI Keith Attending Unavailable Patricia Stanford Primary Care Unavailable Asaad, Imad Admitting Unavailable Asaad, Imad Attending Unavailable Patricia Stanford Primary Care Unavailable Asaad, Imad Attending Unavailable Asaad, Imad Admitting Unavailable Allergies Allergy Classification Reported Allergen(s) Allergy Type Date of Onset Reaction(s) Facility (8 sources) Calcitonin ([place]) *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 Medications Current Medications Medication Drug Class(es) [...] Active Subcutaneous for 0 *Pick strength-form from [facility] for eRX* Aug, Active diclofenac sodium [...] day for 0 days *Pick strength-form from [employer] for eRX* Oct, Active magnesium oxide 400 mg oral tablet (1 source) Start: 03-13-2024 take 1 tablet by mouth once daily Magnesium Oxide Active 400 MG PO Daily March 13, 2024 12:00am [employer] tablet with a meal Orally Once a day; Note: Source Status: Taking*Pick strength-form from [employer] for eRX*; Provider: Abdoulaye Gomez ( ) Multiple Vitamin (8 sources) take 1 tablet by mouth once daily Multiple Vitamin 1 tablet Orally Once a day Active Lnxcjftk-Xjqo-Uw-Junaid cium-Mins (Daily Multiple For Women) 18 mg iron-400 mcg-500 mg Ca tablet (1 source) Start: 03-13-2024 take 1 tablet by mouth once daily Bgccxvhx-Rpxa-Ab-C alcium-Mins (Daily Multiple For Women) 18 mg [...] Reference Range Facility [facility] 10-02-2023 L Specimen: [id number] Received: 10/02/23 Status: OJ Brice Num: [id number] Spec Type: Surgical Subm Dr: Sunny Torres MD Tissues: A GASTRIC FOR HP (GASTRIC BX R/O H.PYLORI) B Colon Biopsy (RANDOM COLON BX R/O MICROSCO) Procedures: HE/4, Gross/Micro L4/2, H PYLORI Age/ Patient Sex Location Account Attending Physician MurdockLobo 78/F [id number] Sunny Torres MD SPEC NUM: [id number] RECD: 10/02/23 STATUS: OJ BRICE NUM: [id number] TEO: 10/02/[address]: Sunny Torres MD [...] name, date of and random colon Specimen: [id number] Received: 10/02/23 Status: OJ Brice Num: [id number] Spec Type: Surgical Subm Dr: Sunny Torres MD Tissues: A GASTRIC FOR HP (GASTRIC BX R/O H.PYLORI) B Colon Biopsy (RANDOM COLON BX R/O MICROSCO) Procedures: HE/4, Gross/Micro L4/2, H PYLORI Patient: Lobo Murdock [id number] (Continued) Specimen: [id number] Received: 10/02/23 (Continued) Gross Description (Continued) Signed (signature on file) Patito Grimm MD 10/03/23 1430 Specimen: [id number] Received: 10/02/23 Status: OJ Brice Num: [id number] Spec Type: Surgical Subm Dr: Sunny Torres MD Tissues: A GASTRIC FOR HP (GASTRIC BX R/O H.PYLORI) B Colon Biopsy (RANDOM COLON BX R/O MICROSCO) Procedures: HE/4, Gross/Micro L4/2, H PYLORI Patient: Lobo Murdock [id number] (Continued) Specimen: [id number] Received: 10/02/23 (Continued) Gross Description (Continued) biopsy are 2 galvan translucent soft tissue fragments, 0.3 and 0.6 cm in greatest dimensions. Entirely submitted in one cassette labeled B1. CPT Codes [id number] Specimen: [id number] Received: 10/02/23 Status: OJ Brice Num: [id number] Spec Type: Surgical Subm Dr: Sunny Torres MD Tissues: A GASTRIC FOR HP (GASTRIC BX R/O H.PYLORI) B Colon Biopsy (RANDOM COLON BX R/O MICROSCO) Procedures: HE/4, Gross/Micro L4/2, H PYLORI Patient: Lobo Murdock [id number] (Continued) Signed (signature on file) Patito Grimm MD 10/03/23 1430 Normal [facility] CALCIUMon 10-03-2022 Calcium [Mass/Vol] 8.9 mg/dL Normal 8.5-10.1 [facility] Comment on above: Performed By: #### VALERIO MADRIGAL #### [facility] [address] [place] [address] Dr. Dang Grimm CREATININEon 10-03-2022 Creatinine [Mass/Vol] 1.03 mg/dL Critically high 0.55-1.02 [facility] Comment on above: Performed By: ###VALERIO NIEVES #### [facility] [address] [place] [address] Dr. Dang Grimm EGFR-AF CAMBODIAN >60 Normal >=60 [facility] Comment on above: Performed By: #### VALERIO MADRIGAL #### [facility] [address] [place] [address] Dr. Dang Grimm EGFR-NON AF CAMBODIAN 52 mL/min/1.73m2 Critically low >=60 [facility] Comment on above: Performed By: #### C VALERIO ADAMS #### [facility] [id number] Dang Grimm Covid-19 PCR ([facility])on SARS-CoV-2 (COVID-19) RNA GENARO+probe Ql (Unsp [...] for this test is supported by the [employer] of Health and Human Service's (HHS's) declaration [...] VDTB #### [facility] [address] [place] [address] Dr. Dang Grimm ANAon 04-20-2022 OCTAVIA PATTERN SPECKLED Normal [facility] Comment on above: Result Comment: The [...] authority. Performed By: #### 1 0196 #### [facility] [address] [facility]. [address] OCTAVIA SCREEN 1:40 Normal <1:40,1:40 [facility] Comment on above: Result Comment: Test performed using MELCHOR IFA OCTAVIA Hep-2 Test, a pre-standardized assay designed for the qualitative and semi-quantitative detection of antinuclear antibodies. Performed By: #### 1 0196 #### [facility] [address] [facility]. [address] C REACTIVE PROTEINon CRP [Mass/Vol] 2.5 mg/L Normal 0.0-7.0 [facility] Comment on above: Performed By: #### 6 1405, 24146 #### [facility] [address] CBC COMPLETE BLOOD COUNTon 0 04-20-2022 Erythrocyte distribution width (RBC) [Ratio] 12.4 % Normal 11.5-15.0 [facility] Comment on above: Performed By: #### 5 6506, 20784 #### [facility] [address] Hematocrit (Bld) [Volume fraction] 41.6 % Normal 36.0-45.0 [facility] Comment on above: Performed By: #### 5 6506, 91276 #### [facility] [address] [facility]. [address] Hemoglobin (Bld) [Mass/Vol] 13.7 g/dL Normal 12.0-15.0 [facility] Comment on above: Performed By: #### 5 6506, 52820 #### [facility] [address] [facility]. [address] MCH (RBC) [Entitic mass] 31.4 pg Normal 27.0-33.0 [facility] Comment on above: Performed By: #### 5 6506, 57263 #### [facility] [address] [place] [address], [facility] MCHC (RBC) [Mass/Vol] 32.9 g/dL Normal 32.0-35.0 [facility] Comment on above: Performed By: #### 5 650, 32835 #### [facility] [address] [place] [id number], [facility] MCV (RBC) [Entitic vol] 95.2 fL Normal 82.0-98.0 [facility] Comment on above: Performed By: #### 5 6505, 22866 #### [facility] [address] [address], [facility] Nucleated RBC/100 WBC (Bld) [Ratio] 0 % Normal 0-0 [facility] Comment on above: Performed By: #### 5 6505, 58544 #### [facility] [address] [address], [facility] PLAT CNT 248 10*3/uL Normal 150-400 [facility] Comment on above: Performed By: #### 5 650, 17944 #### [facility] [address] [facility] [place] [address], [facility] RBC (Bld) [#/Vol] 4.37 10*6/uL Normal 3.80-5.00 [facility] Comment on above: Performed By: #### 5 650, 19129 #### [facility] [address] [address], [facility] WBC (Bld) [#/Vol] 5.54 10*3/uL Normal 4.00-10.60 [facility] Comment on above: Performed By: #### 5 650, 13152 #### [facility] [address] [address], [facility] CERVICAL SPINE 4 OR 5 VIEWSo n 04-20-2022 CERVICAL SPINE 4 OR 5 VIEWS [facility] Department of Radiology [address] [place] [address] ===== Patient Name: LOBO MURDOCK : 1945 Sex: F Age: Race: White Pt. Location: [facility] Patient Status: O Ordered Date: 04/20/2022 10:50:00 AM Completed Date: 04/20/2022 11:42 AM Requesting Provider: MICHAEL HAHN Attending Provider: ARIADNA NOLAN Report Copy To: Signs & Symptoms: M54.2 Cervicalgia I10 History: [place] Comments: Views (X-RAY, CERVICAL SPINE): AP, Lateral, [...] C3 Electronically signed: Christian Upton. Transcribed by: [email or web address], User Resident: Electronically Signed by: CHRISTIAN UPTON @ 04/20/2022 02:33 PM Normal [facility] Comment on above: Order Comment: Views (X-RAY, CERVICAL SPINE): AP, Lateral, Odontoid, Flexion, Extension COMP METABOLIC PANELon 04-20 Albumin [Mass/Vol] 4.1 g/dL Normal 3.5-5.[address] [facility] Comment on above: Performed By: #### 3 5515, 15311, 09622 #### [facility] [address] [place] [address], [place] ALKALINE PHOSPH 63 IU/L Normal 34-104 [facility] Comment on above: Performed By: #### 3 5515, 90352, 44503 #### [facility] [address] [place] [address], [place] ALT [Catalytic activity/Vol] 15 U/L Normal 7-52 [facility] Comment on above: Performed By: #### 3 5515, 35644, 41119 #### [facility] [address] [place] [address], [place] AST [Catalytic activity/Vol] 22 U/L Normal 13-39 [facility] Comment on above: Performed By: #### 3 5515, 90978, 30334 #### [facility] [address] [place] [address], [place] Bilirubin [Mass/Vol] 0.5 mg/dL Normal 0.3-1.0 [facility] Comment on above: Performed By: #### 3 5515, 30677, 26316 #### [facility] [address] [place] [address], [place] Calcium [Mass/Vol] 10.2 mg/dL Normal 8.6-10.[address] [facility] Comment on above: Performed By: #### 3 5515, 78678, 80952 #### [facility] [address] [place] [address], [facility] Chloride [Moles/Vol] 105 mmol/L Normal 98-107 [facility] Comment on above: Performed By: #### 3 5515, 43901, 10401 #### [facility] [address] [place] [address], [place] CO2 [Moles/Vol] 25 mmol/L Normal 21-31 [facility] Comment on above: Performed By: #### 3 5515, 79905, 20365 #### [facility] [address] [place] [address], [facility] Creatinine [Mass/Vol] 0.95 mg/dL Normal 0.60-1.20 [facility] Comment on above: Performed By: #### 3 5515, 79992, 22440 #### [facility] [address] [place] [address], [place] GFR/1.73 sq M.predicted among non-blacks MDRD [...] of individuals. Performed By: #### 3 5515, 60381, 40844 #### [facility] [address] [place] [address], [place] Glucose [Mass/Vol] 88 mg/dL Normal 70-100 [facility] Comment on above: Performed By: #### 3 5515, 80116, 94583 #### [facility] [address] [place] [address], [facility] Potassium [Moles/Vol] 4.5 mmol/L Normal 3.5-5.1 [facility] Comment on above: Performed By: #### 3 5515, 28044, 38998 #### [facility] [address] [place] [address], [facility] Protein [Mass/Vol] 6.8 g/dL Normal 6.0-8.[address] [facility] Comment on above: Performed By: #### 3 5515, 34612, 55481 #### [facility] [address] [place] [address], [facility] Sodium [Moles/Vol] 138 mmol/L Normal 136-[address] [facility] Comment on above: Performed By: #### 3 5515, 47346, 67746 #### [facility] [address] [place] [address], [facility] Urea nitrogen [Mass/Vol] 29 mg/dL High 7-25 [facility] Comment on above: Performed By: #### 3 5515, 37216, 62392 #### [facility] [address] CYCLIC CITRULLINATED PEPTIDE [place] [id number] 04-20-2022 CYCLIC CIT PEP 2 Units Normal 0-19 [facility] Comment on above: Result Comment: [...] be monitored and testing repeated. Performed By: [employer] [address] [place] [address] Manager Developmental: Brett Tamez MD, PhD FERRITINon 04-20-2022 Ferritin [Mass/Vol] 43 ng/mL Normal 11-307 [facility] Comment on above: Performed By: #### 3 5515, 53134, 41852 #### [address] HAND LEFT 3 [facility] 04-20-2022 HAND LEFT 3 [facility] Department of Radiology [address] [place] [id number] ===== Patient Name: LOBO MURDOCK : 1945 Sex: F Age: Race: White Pt. Location: [facility] Patient Status: O Ordered Date: 04/20/2022 10:50:00 AM Completed Date: 04/20/2022 11:42 AM Requesting Provider: MICHAEL HAHN Attending Provider: ARIADNA NOLAN Report Copy To: Signs & Symptoms: M79.641 Pain in right hand I10 History: [place] Comments: Evaluate Exam: [facility] HAND LEFT 3 VWS 04/20/2022 [...] report. Electronically signed: Chelita Lazcano. Transcribed by: [email or web address], User Resident: NIRMALA MONGE Electronically Signed by: CHELITA LAZCANO @ 04/20/2022 01:29 PM I personally read this/these film(s) with this resident Normal [facility] Comment on above: Order Comment: Evalu ate HAND RIGHT 3 VWSon 2 HAND RIGHT 3 S [facility] Department of Radiology [address] [place] [id number] ===== Patient Name: LOBO MURDOCK : 1945 Sex: F Age: Race: White Pt. Location: [facility] Patient Status: O Ordered Date: 04/20/2022 10:50:00 AM Completed Date: 04/20/2022 11:42 AM Requesting Provider: MICHAEL HAHN Attending Provider: ARIADNA NOLAN Report Copy To: Signs & Symptoms: M79.641 Pain in right hand I10 History: [place] Comments: Evaluate Exam: HAND RIGHT 3 VWS [...] report. Electronically signed: Chelita Lazcano. Transcribed by: [email or web address], User Resident: NIRMALA MONGE Electronically Signed by: CHELITA LAZCANO @ 04/20/2022 01:43 PM I personally read this/these film(s) with this resident Normal [facility] Comment on above: Order Comment: Evalu ate RHEUMATOID FACTOR SERUMon RA <20 Normal 0-20 [facility] Comment on above: Performed By: #### 6 1405, 43761 #### [facility] [address] SEDIMENTATION RATEon 022 SED RATE 38 mm/hr High 0-20 [facility] Comment on above: Performed By: #### 5 6006, 21653 ####[facility] [address], [facility] TIBC- INCLUDES IRONon 2021 FE SATURATION 30 % Normal 20-50 [facility] Comment on above: Performed By: #### 3 5515, 78392, 42829 #### [facility] [address] [place] [address], [facility] Iron [Mass/Vol] 115 ug/dL Normal 50-212 [facility] Comment on above: Performed By: #### 3 5515, 89325, 13149 #### [facility] [address] [place] [address], [facility] TIBC 378 mcg/dL Normal 250-450 [facility] Comment on above: Performed By: #### 3 5515, 69690, 89913 #### [facility] [address] [place] [address], [facility] UIBC 263 mcg/dL Normal 155-355 [facility] Comment on above: Performed By: #### 3 5515, 37541, 18147 #### [facility] [address] [place] [address], [facility] CALCIUMon 04-09-2022 Calcium [Mass/Vol] 9.6 mg/dL Normal 8.5-10.1 [facility] Comment on above: Performed By: #### VALERIO MADRIGAL #### [facility] [address] [address] [address] Dang Grimm CREATININEon 04-09-2022 Creatinine [Mass/Vol] 1.07 mg/dL Critically high 0.55-1.02 [facility] Comment on above: Performed By: #### VALERIO MADRIGAL #### [facility] [address] [address] [address] Dang Grimm EGFR-AF CAMBODIAN >60 Normal >=60 [facility] Comment on above: Performed By: #### VALERIO MADRIGAL #### [facility] [address] [address] [address] Dang Grimm EGFR-NON AF CAMBODIAN 50 mL/min/1.73m2 Critically low >=60 [facility] Comment on above: Performed By: #### C VALERIO ADAMS #### [facility] [address] [address] [address] Dang Grimm Vital Signs Date Time Vital Sign Value Performing Clinician Facility 03-20-2024 09:15-0400 Diastolic blood pressure 62 mm[Hg] MD Patricia Stanford Work Phone: [facility] 03-20-2024 09:15-0400 Heart rate 72 /min MD Patricia Stanford Work Phone: [facility] 03-20-2024 09:15-0400 Respiratory rate 20 /min MD Patricia Stanford Work Phone: [facility] 03-20-2024 09:15-0400 SaO2% (BldA) [Mass fraction] 99 % MD Patricia Stanford Work Phone: [facility] 03-20-2024 09:15-0400 Systolic blood pressure 115 mm[Hg] MD Patricia Stanford Work Phone: [facility] 03-20-2024 07:18-0400 Body height 156.84 cm MD Patricia Stanford Work Phone: [facility] 03-20-2024 07:18-0400 Body weight 55.33 kg MD Patricia Stanford Work Phone: [facility] 03-16-2024 09:04-0400 Body height 156.84 cm MD Patricia Stanford Work Phone: [facility] 03-16-2024 09:04-0400 Body mass index (BMI) [Ratio] 22.8 kg/m2 MD Patricia Stanford Work Phone: [facility] 03-16-2024 09:04-0400 Body weight 56.24 kg MD Patricia Stanford Work Phone: [facility] 03-16-2024 09:04-0400 Diastolic blood pressure 72 mm[Hg] MD Patricia Stanford Work Phone: [facility] 03-16-2024 09:04-0400 Heart rate 81 /min MD Patricia Stanford Work Phone: [facility] 03-16-2024 09:04-0400 Systolic blood pressure 122 mm[Hg] MD Patricia Stanford Work Phone: [facility] 10-02-2023 09:55-0500 Diastolic blood pressure 67 mm[Hg] MD Patricia Stanford Work Phone: [facility] 10-02-2023 09:55-0500 Heart rate 80 /min MD Patricia Stanford Work Phone: [facility] 10-02-2023 09:55-0500 Respiratory rate 16 /min MD Patricia Stanford Work Phone: [facility] 10-02-2023 09:55-0500 SaO2% (BldA) [Mass fraction] 99 % MD Patricia Stanford Work Phone: [facility] 10-02-2023 09:55-0500 Systolic blood pressure 108 mm[Hg] MD Patricia Stanford Work Phone: [facility] 10-02-2023 07:07-0500 Body height 160.02 cm MD Patricia Stanford Work Phone: [facility] 10-02-2023 07:07-0500 Body weight 56.69 kg MD Patricia Stanford Work Phone: [facility] 08-30-2023 10:30-0500 Body height 157.48 cm Patricia Stanford Other [facility] 08-30-2023 10:30-0500 Body mass index (BMI) [Ratio] 21.73 kg/m2 Patricia Stanford Other [facility] [employer] Other 08-30-2023 10:30-0500 Body weight 53.89 kg Patricia Stanford Other [facility] [employer] Other 08-30-2023 10:30-0500 Body weight 53.88 kg MD Patricia Stanford Work Phone: [facility] 08-30-2023 10:30-0500 Diastolic blood pressure 74 mm[Hg] Patricia Stanford Other [facility] 08-30-2023 10:30-0500 Systolic blood pressure 122 mm[Hg] Patricia Stanford Other [facility] 08-21-2023 13:45-0500 Body height 157.48 cm Imad Asaad Other [facility] 08-21-2023 13:45-0500 Body mass index (BMI) [Ratio] 21.58 kg/m2 Imad Asaad Other [facility] [employer] Other 08-21-2023 13:45-0500 Body weight 53.52 kg Imad Asaad Other [facility] 07-15-2023 11:30-0500 Body height 157.48 cm Patricia Stanford Other [facility] 07-15-2023 11:30-0500 Body mass index (BMI) [Ratio] 21.73 kg/m2 Patricia Stanford Other [facility] [employer] Other 07-15-2023 11:30-0500 Body weight 53.89 kg Patricia Stanford Other [facility] [employer] Other 07-15-2023 11:30-0500 Body weight 53.88 kg MD Patricia Stanford Work Phone: [facility] 07-15-2023 11:30-0500 Diastolic blood pressure 78 mm[Hg] Patricia Stanford Other [facility] 07-15-2023 11:30-0500 Systolic blood pressure 148 mm[Hg] Patricia Stanford Other [facility] 07-06-2023 09:20-0500 Body height 157.48 cm MD Patricia Stanford Work Phone: [facility] 07-06-2023 09:20-0500 Body weight 55.51 kg MD Patricia Stanford Work Phone: [facility] Encounters Encounter Date Encounter Type Care Provider Facility Start: 03-20-2024 Non-patient / Non-visit MD Marlys Stanford Work Phone: [facility] G[facility] Work Phone: Start: 03-20-2024 End: 03-20-2024 Admission to same day surgery center MD Patricia Stanford Work Phone: [facility] Work Phone: Start: 03-20-2024 End: 03-20-2024 ambulatory MD Patricia Stanford Work Phone: [facility] Work Phone: Start: 03-18-2024 End: 03-18-2024 ambulatory CARI B APLING Not Available Start: 03-17-2024 Preoperative state MD Patricia bliss Work Phone: [facility] Start: 03-16-2024 End: 03-16-2024 ambulatory CARI B APLING Not Available Start: 03-16-2024 End: 03-16-2024 Patient encounter procedure MD Patricia Stanford Work Phone: [facility] Work Phone: Start: 10-14-2023 End: 10-15-2023 ambulatory Ara Maier MD Facility:[facility] Start: 10-04-2023 End: 10-04-2023 ambulatory Imad Asaad Other [employer] Other Start: 10-04-2023 Telephone encounter Imad Asaad [facility] Start: 10-02-2023 Non-patient / Non-visit MD Marlys Stanford Work Phone: [facility] Gastroenter[facility] Work Phone: Start: 10-02-2023 End: 10-02-2023 Admission to same day surgery center MD Patricia Stanford Work Phone: [facility] Work Phone: Start: 10-02-2023 End: 10-02-2023 ambulatory MD Patricia Stanford Work Phone: [facility] Work Phone: Start: 09-23-2023 End: 09-23-2023 ambulatory Patricia Stanford Other [employer] Other Start: 09-23-2023 Telephone encounter Patricia [facility] Start: 09-09-2023 End: 09-09-2023 ambulatory CARI B APLING Not Available Start: 09-04-2023 End: 09-04-2023 ambulatory CARI B APLING Not Available Start: 09-03-2023 End: 09-03-2023 ambulatory Patricia Stanford Other [employer] Other Start: 09-03-2023 Telephone encounter 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 Start: 08-30-2023 End: 08-30-2023 ambulatory Patricia Stanford Other [employer] Other Start: 08-30-2023 Office outpatient vi sit 15 minutes [facility] Start: 08-30-2023 End: 08-30-2023 Patient encounter procedure MD Patricia Stanford Work Phone: [facility]- Start: 08-23-2023 End: 08-23-2023 ambulatory Patricia Stanford Other [employer] Other Start: 08-23-2023 Telephone encounter [facility] Start: 08-21-2023 End: 08-21-2023 ambulatory Imad Asaad Other [employer] Other Start: 08-21-2023 Office outpatient ne w 45 minutes Imad Asaad [facility] Start: 08-21-2023 End: 08-21-2023 Patient encounter procedure MD Patricia Stanford Work Phone: [facility] Work Phone: Start: 07-15-2023 End: 07-15-2023 ambulatory Patricia Stanford Other [employer] Other Start: 07-15-2023 Office outpatient vi sit 15 minutes [facility] Start: 07-15-2023 Telephone encounter [facility] Start: 07-15-2023 End: 07-15-2023 Patient encounter procedure MD Patricia Stanford Work Phone: [facility] Work Phone: Start: 07-06-2023 End: 07-06-2023 Patient encounter procedure MD Patricia Stanford Work Phone: [facility] Luis Alfredo Work Phone: [...] Start: 04-20-2022 End: 04-21-2022 ambulatory ARIADNA NOLAN Facility:[facility] Start: 04-09-2022 End: 04-10-[address] PATRICIA STANFORD Facility: Start: 02-27-2022 End: 02-28-2022 ambulatory DEFAULT PHYSICIAN Facility:[facility] Start: 02-22-2022 End: 02-23-[address] MASSIMO MATTHEWS . Facility: Start: 12-06-2021 ambulatory MICHELE SALDAÑA . Facility:[facility] Start: 11-30-2021 End: 12-01-[address] MASSIMO MATTHEWS . Facility: Start: 10-25-2020 Pre-procedure evaluation check Patricia Stanford Other [employer] Other Procedures Date Procedure Procedure Detail Performing Clinician Start: 03-20-2024 Colonoscopy MD Patricia Stanford Work Phone: Start: 10-02-2023 Esophagogastroduodenoscopy MD Patricia fox Work Phone: Start: 07-10-2017 Screening mammography Patricia Stanford Other Start: 07-19-2016 General examination of patient Patricia Kelsey padilla Other Plan of Treatment Date Care Activity Detail Author Start: 03-20-[address] [facility] Start: 10-02-[address] [facility] Patient Education Hemorrhoids (D C) Know your Meds [facility] Work Phone: Immunizations Immunization Date Immunization Notes Care Provider Kristen abreu 05-17-2022 zoster vaccine, live Patricia Stanford Other [facility] 04-23-2022 influenza virus vaccine, split virus (incl. purified surface antigen) Patricia Stanford Other [facility] [employer] Other 04-23-2022 influenza virus vaccine, unspecified formulation MD Patricia Stanford Work Phone: [facility] 04-23-2022 pneumococcal polysaccharide vaccine, 23 valent Patricia Stanford Other [facility] 04-23-2022 tetanus toxoid, adsorbed Patricia Stanford Other [facility] 05-25-2021 influenza virus vaccine, split virus (incl. purified surface antigen) Patricia Stanford Other [facility] [employer] Other 05-25-2021 influenza virus vaccine, unspecified formulation MD Patricia Stanford Work Phone: [facility] 10-18-2020 COVID-19 Vaccine Moderna - Documentation Purposes Only Patricia Stanford Other [facility] 09-19-2020 COVID-19 Vaccine Moderna - Documentation Purposes Only Patricia Stanford Other [facility] 04-16-2020 influenza virus vaccine, split virus (incl. purified surface antigen) Patricia Stanford Other [facility] [employer] Other 04-16-2020 influenza virus vaccine, unspecified formulation MD Patricia Stanford Work Phone: [facility] 05-12-2019 influenza virus vaccine, split virus (incl. purified surface antigen) Patricia Stanford Other [facility] [employer] Other 05-12-2019 influenza virus vaccine, unspecified formulation MD Patricia Stanford Work Phone: [facility] 04-18-2018 influenza virus vaccine, split virus (incl. purified surface antigen) Patricia Stanford Other [facility] [employer] Other 04-18-2018 influenza virus vaccine, unspecified formulation MD Patricia Stanford Work Phone: [facility] 07-10-2017 pneumococcal conjuga te vaccine, 13 valent Patricia Stanford Other [facility] 04-18-2017 influenza virus vaccine, split virus (incl. purified surface antigen) Patricia Stanford Other [employer] Other 04-18-2017 influenza virus vaccine, unspecified formulation MD Patricia Stanford Work Phone: [facility] 05-09-2016 influenza virus vaccine, split virus (incl. purified surface antigen) Patricia Stanford Other [facility] [employer] Other 05-09-2016 influenza virus vaccine, unspecified formulation MD Patricia Stanford Work Phone: [facility] 05-27-2013 tetanus and diphther ia toxoids, adsorbed, preservative free, for adult use (5 Lf of tetanus toxoid and 2 Lf of diphtheria toxoid) Patricia Stanford Other [facility] 12-24-2011 pneumococcal polysaccharide vaccine, 23 valent Patricia Stanford Other [facility] Payers Date Payer Category Payer Self-pay 2022 Medicare 2022 Unknown 1959 Medicare [id number] 1959 Unknown [id number] 1945 Unknown [id number] 2.16.8 40.1.053822.3.579.2.647 1945 Unknown [id number] 2.16.8 40.1.270676.3.579.2.647 1946 Unknown [id number] 2.16.84 0.1.165222.3.579.2.593 1946 Unknown [id number] 2.16.84 0.1.551009.3.579.2.593 1946 Unknown [id number] 2.16.84 0.1.117132.3.579.2.593 1946 Unknown [id number] 2.16.84 0.1.722942.3.579.2.593 1946 Unknown [id number] 2.16.84 0.1.485740.3.579.2.593 1946 Unknown [id number] 2.16.84 0.1.386373.3.579.2.593 1946 Unknown [id number] 2.16.84 0.1.739950.3.579.2.593 1946 Unknown [id number] 2.16.84 0.1.981297.3.579.2.593 1946 Unknown [id number] 2.16.84 0.1.889796.3.579.2.593 1946 Unknown [id number] 2.16.84 0.1.340369.3.579.2.593 1946 Unknown [id number] 2.16.84 0.1.009397.3.579.2.593 1946 Unknown [id number] 2.16.84 0.1.118101.3.579.2.593 1946 Unknown [id number] 2.16.84 0.1.676563.3.579.2.593 1946 Unknown [id number] 2.16.84 0.1.121141.3.579.2.593 1946 Unknown [id number] 2.16. 840.1.842156.3.579.2.196 1946 Unknown [id number] 2.16. 840.1.484122.3.579.2.196 1946 Unknown [id number] 2.16. 840.1.880627.3.579.2.196 1946 Unknown [id number] 2.16.84 0.1.767533.3.579.2.1259 1946 Unknown [id number] 2.16.84 0.1.816768.3.579.2.1259 1946 Unknown [id number] 2.16.84 0.1.435088.3.579.2.1259 1946 Unknown [id number] 2.16.84 0.1.110793.3.579.2.1259 Medicare Medicare Outpatient [id number] [id number] Unknown [id number] 2.16.8 40.1.471069.3.579.2.531 Social History Date Type Detail Facility Unknown if ever smoked [employer] Other Sex Assigned At Sex Assigned At Bir th [employer] Other Start: 10-02-2023 End: 03-20-2024 Tobacco smoking status NHIS Never smoked tobacco (finding) [facility] Start: 1945 Sex Assigned At Female F [facility] Goals Date Patient Goal Desired Activity /State Clinical Notes 11-30-2021 to 03-20-2024 Note Date & Type Note Facility 03-20-2024 Procedure note [facility] 10-02-2023 Procedure note [facility] 08-30-2023 Evaluation note Encounter Date [...] try OTC ones in meantime. Referral placed. [employer] Other 01-10-2024 Evaluation note* Encounter Date Diagnosis [...] procedure explained to patient; patient verbalizes understanding. [employer] Other 12-04-2023 Evaluation note* Encounter Date Diagnosis [...] (ICD-10 - M81.0) Due for Dexa 08/2023 [employer] Other 02-16-2023 NoteCONSULTATION CONSULTATION DATE: 09/27/2022 HISTORY OF PRESENT ILLNESS: This is a 76-year-old female who returns to the clinic status post LES on 09/11/2022. The patient states she was afforded between 50-60% relief. Depending on her physical activity, determines her level of comfort. Activities such as standing, walking, lying, intelligence operations specialist hours, housework and lifting greatly aggravate [...] agreement with this plan.[facility] [id number] NoteCONSULTATION CONSULTATION DATE: 09/04/2022 HISTORY OF PRESENT [...] would like to proceed.[facility] [id number] NoteCONSULTATION CONSULTATION DATE: 07/11/2022 HISTORY OF PRESENT [...] the clinic post procedure.[facility] [id number] NoteCONSULTATION PROCEDURE DATE: 07/11/2022 PREOPERATIVE DIAGNOSIS: Bilateral [...] pain returning. 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 The patient has not seen a black and white printer operator in the past. REVIEW OF SYSTEMS, [...] mg q.h.s. A referral to rheumatology near [place] will be sent on her behalf and I highly encouraged her to seek consultation, particularly since she has a familial history of autoimmune diseases. The patient agrees with the plan of care and will be followed up in the office in three months' time. [facility] Signed and Approved by: MICHELE SALDAÑA . 03/02/2022 14:16:00[facility]04-21-2022 NoteCONSULTATION Consultation Date:11/30/2021 PREOPERATIVE DIAGNOSIS: Right [...] and Approved by: MICHELE SALDAÑA . 12/06/2021 16:15:00[facility]04-21-2022 NoteCONSULTATION Consultation Date:11/30/2021 PAIN MANAGEMENT CONSULTATION [...] her pain are twisting, turning, pushing, pulling, intelligence operations specialist hours, lifting and transitioning positions. Lying down and using heat decrease her pain. Prior to the procedure, she was in a state of acute pain and was placed on a short term course of [place] 5/325 b.i.d. p.r.n. Patient states she only [...] of care and would like to proceed. [facility] Signed and Approved by: MICHELE SALDAÑA . 12/06/2021 16:15[facility]00[facility] noteNo InformationN[facility] [place] Other Evaluation noteNo assessment information available [facility] Work Phone: Evaluation note* Diagnosis Onset Date Resolution Status Lumbar spondylosis acute Preoperative clearance acute Situational depression acute [facility] Work Phone: History and physical note Author Sunny Torres [facility] October 02, 2023 8:54am Note Date/Time October 02, 2023 8:54am [facility] [address] [place], [place] [id number] Gastroenterology H&P Signed Patient: Lobo Murdock MR#: [id number] : 1945 Acct:[id number] Age/Sex: 78 / F Adm Date: 4 Loc: Room: Type: [facility] Attending Dr: Sunny Torres MD Copies [...] signed by Sunny Torres MD> 10/02/23 0854 [facility] Work Phone: History and physical note Author Sunny Torres [facility] March 20, 2024 8:43am Note Date/Time March 20, 2024 8:4 3am [facility] [address] [place] [address] Gastroenterology H&P Signed Patient: Lobo Murdock MR#: [id number] : 1945 Acct:[id number] Age/Sex: 78 / F Adm Date: 4 Loc: Room: Type: [facility] Attending Dr: Sunny Torres MD Copies [...] MD 03/20/2442 Signed By: <Electronically signed by Sunyn Torres MD> 03/20/24 0843 [facility] Work Phone: History general Narrative - [...] shoulder pain 1982 Hospitalization History migraines 1992 [employer] Other Hospital Discharge instructions Additional Instructions DISCHARGE [...] up in the office - Office number [phone]. [facility] Work Phone: Summary Purpose Family History [...] 1 Chronic diarrhea (K5 2.9) Referral Organization [facility] pipo Referring Provider First Name Patricia Referring Provider Last Name Abdoulaye Referring Provider Specialty [facility] Referred [facility]erred Address [address],[address] Referred Provider Specialty Gastroentero logy Referral Priority Routine Reason *FU 09/06 R foot p ain Diagnosis 1 Pain of left great t oe (M79.675) Referral Organization [facility] pipo Referring Provider First Name Patricia Referring Provider Last Name Abdoulaye Referring Provider Specialty [facility] Referred Organization [facility] Referred Provider Odin Chong Referred Address [address] [place], [place],[address] Referred Provider Specialty Podiatry - S urgical [...] content) DATE CREATED AUTHOR 05/09/2022 [facility] DATE CREATED AUTHOR AUTHOR'S ORGANIZ ATION 11/17/[address] [facility] DATE CREATED AUTHOR AUTHOR'S ORGANIZ ATION 10/18/2023 [facility] DATE CREATED AUTHOR AUTHOR'S ORGANIZ ATION 03/20/2024 [facility] DATE CREATED AUTHOR AUTHOR'S ORGANIZ ATION 03/22/2024 [facility] REASON FOR VISIT (unrecogniz ed [...] [facility] [employer] [facility]. provides no warranty or guarantee of the accuracy or completeness of information in this document.
[2024-03-27] MEDS: LACTATED RINGER'S SOLUTION 1,000 ML 50 ML IV ×2 (06:55→09:08)
[2024-03-27] MEDS: FAMOTIDINE/PF 20 MG/2 ML VIAL IV (06:56)
[2024-03-27] MEDS: CEFAZOLIN SODIUM 2 GM/50 ML D5W PREMIX IV (07:45)
[2024-03-27] MEDS: VANCOMYCIN HCL 1,000 MG VIAL 1000 MG TOPICAL (09:31)
--- NOTE | 2024-03-27 09:59 | P.ON_ITS ---
Brief Operative Note Date of procedure: 03/27/24 Pre-op diagnosis general: L4-S1 degenerative disc disease with stenosis and ra diculopathy, L4-5 spondylolisthesis, grade 1 Post-op diagnosis: same as pre-op Procedure: L4-S1 decompression and L4-5 fusion Anesthesia: CECILLE Surgeon: Luis Fernando Johnson Manager Maintenance: Andres Landry Estimated blood loss (mL): 150 Pathology: none sent Condition: stable Disposition: PACU
[2024-03-27] MEDS: HYDROMORPHONE HCL 0.5 MG/0.5 ML SYRINGE IV (10:13)
--- NOTE | 2024-03-27 10:14 | W.PM.OPNOTE ---
Surgery Operative Note Operative Note Procedure Date: 03/27/24 Time Out Performed: yes Pre-op Diagnosis: 1. L4-S1 degenerative disc disease with stenosis and radiculopathy 2. L4-5 spondylolisthesis, grade 1 Post-op Diagnosis: same as pre-op Procedures performed: 1. ?L4-S1 bilateral laminectomy, partial medial facetectomies and foraminotomies of L4, L5, and S1 nerve roots 2. ?L4-5 posterior spinal fusion. 3. ?L4-5 posterior spinal instrumentation, Cortera, Xtant instrumentation. 4. ?Use of local autograft bone Anesthesia: LISBETHA Primary Surgeon: Luis Fernando Johnson Complications: None Estimated blood loss (mL): 150 Findings: stenosis Specimens: None Drains: Hemovac drain x 1 Indications for Procedures: This is a 78-year-old female with refractory back and right leg pain from degenerative disc disease and lumbar stenosis from L4-S1 and degenerative spondylolisthesis at L4-5. ?Patient has failed full conservative therapy including medication management, physical therapy, and injections/procedures with pain management. Due to the persistence of symptoms and reduction in the ADLs, patient elected surgical treatment.?Patient, therefore, understood indications for the surgery as well as its risks, benefits, and alternatives. ?These risks include but are not limited to paralysis, infection, hematoma, dural tear, nerve root injury, nonunion, DVT/PE, stroke, NH, etc. ?All questions were answered. Informed consent was obtained. Detailed description of Procedure: OPERATIVE PROCEDURE: ?The patient was taken to the operating room by the Anesthesiology Service and had satisfactory general anesthesia.?A first-generation cephalosporin was given within 1 hour of surgical incision. ?2 gm of cefazolin was given IV. ?Venous thromboembolic prophylaxis was performed with sequential devices. (Frias was placed using standard sterile technique)?The patient was then positioned prone on a standard OSI frame with the abdomen hanging free and all bony prominences well padded. ?The low back was then prepped and draped in its entirety in the usual sterile fashion. Before incision, a formal timeout was taken per protocol. We next took a midline longitudinal approach and performed subperiosteal dissection out to the tips of the transverse processes of L4, L5 and medial facet joint L5-S1. Intraoperative localization of level was confirmed using anatomic landmarks. ?We then began the laminectomy as well as decompression by removing the spinous process of L4 and L5. ?We entered the spinal canal, resecting the ligamentum flavum in its entirety over this region. Patient had significant stenosis in the lateral recess and neural foramina.?Partial medial facetectomy was then performed with an osteotome to get lateral to the facet overhang, but just medial to the pedicles and nerve roots. ?Kerrison's were then used to perform foraminotomies of the L4, L5, and S1 nerve roots bilaterally. In this way, we completed decompression at L4-5 and L5-S1 with foraminotomies of the L4, L5, and S1 nerve roots bilaterally. Satisfied with this, we then turned our attention to perform spinal instrumentation and posterolateral fusion. Using anatomic landmarks and guided by direct visualization of the pedicles from within the canal, pedicle screws were placed bilaterally at L4 and L5. ?All the screws were completely interosseous as determined by bony palpation. ?Before the screws were inserted, the transverse processes were decorticated with a high-speed bur at L4 and L5. ?Local autograft bone was placed over the decorticated elements bilaterally from L4-5. The screws were then inserted which were under tapped by 1 mm. ?Two rods were placed from L4-5, set screws engaged and tightened down to their final torque.?Everything was tightened down. ?A very rigid construct was achieved. ?Final x-ray was taken, demonstrated good position of the spine and all of the implants. Satisfied with this, we then achieved hemostasis. ?We then copiously irrigated the wound. ?We then inserted a Hemovac drain through a separate stab incision. ?The wound was then closed in layer with interrupted 1 and 2-0 Vicryl sutures and dusted with vancomycin powder. ?A 3-0 Monocryl was used for the skin. The skin edges were sealed with Dermabond. ?A dry sterile dressing was applied. ?The patient was then returned to the hospital bed, extubated, and taken to the recovery room in stable condition. Spinal cord monitoring remained stable throughout the operation. ?DIRECTOR DRUG SAFETY: ?ENEDINA Barnett PA-C, assisted throughout the procedure with positioning, draping, retraction, wound closure, and dressing application. POSTOPERATIVE CARE: ?The patient will be recovered in PACU and then a regular nursing floor. ??Once the drainage is low and pain is under control, patient will be discharged home per clinical indications Patient will follow up in the office in 6 weeks. ?At that time, AP and lateral x-rays of the lumbar spine will be obtained to assess instrumentation and fusion. ? Timber Estimator: Andres Landry Other Provider present: No
[2024-03-27] MEDS: KETOROLAC TROMETHAMINE 30 MG/ML VIAL 15 MG IVP (10:25)
--- NOTE | 2024-03-27 12:28 | SWNOTE1 ---
BIANCA spoke to pt's daughter and sister in room. SW did let family know that usually for these procedures there is a chance pt will return home with hemovac drain and home health nurse is set up to assist. Pt's daughter voiced that she thinks that is a good idea as she is returning to her home in [place] so she can't assist. Pt is still sleeping at this time. BIANCA did ask family if they had a preference on home health companies and they did not. SW to reach out to [facility] since they have spoken to the doctors who perform the surgeries. Family in agreement. BIANCA sent referral to [facility] . Referral included face sheet and operative note. [facility] called back and they can accept.
--- NOTE | 2024-03-27 12:53 | SWNOTE1 ---
SW spoke to daughter again and pt does live at home with her , but he has some Dementia. SW listed daughter as emergency contact for pt on face sheet for [facility] C[facility].
[2024-03-27] MEDS: 0.9 % SODIUM CHLORIDE 1,000 ML 100 ML IV ×2 (12:59→21:15)
[2024-03-27 13:34] LABS: Hematocrit 37.1 % (36.0-48.0); Hemoglobin 12.2 g/dL (12.0-16.0)
[2024-03-27] MEDS: MORPHINE SULFATE 2 MG/ML SYRINGE IV ×2 (13:58→17:47)
[2024-03-27] MEDS: CEFAZOLIN SODIUM/DEXTROSE,ISO 2 GM/50 ML PIGGYBACK IV (16:38)
--- NOTE | 2024-03-27 17:24 | P.PN_ITS ---
Progress Note: Subjective Subjective Interval history: Patient mated for lumbar disc surgery. See operative report. Consultation for medical management. When I saw patient up on the medical surgical floor, she was in bed resting comfortably talking with family without specific complaint. Exam Constitutional Vital Signs, click to edit/add: Last Vital Signs Temp 97.8 F 03/27/24 16:00 Pulse 85 03/27/24 16:00 Resp 16 03/27/24 16:00 BP 94/53 03/27/24 16:00 Pulse Ox 96 03/27/24 16:00 O2 Del Method Room Air 03/27/24 16:00 O2 Flow Rate 2 03/27/24 12:53 Documenting provider has reviewed patient's vital signs: yes Common normals: no apparent distress Chest Common normals: inspection of chest normal Respiratory Common normals: normal respiratory effort and no retractions GI Common normals: Normal to inspection, nondistended, normoactive bowel sounds present and soft to palpation; tender Palpation: tender Details: epigastric Extremity Common normals: normal to inspection, full ROM, normal capillary refill and no clubbing, cyanosis or edema Progress Note: Objective Labs Labs: Short CBC 03/27/24 Range/Units 13:29 Hgb 12.2 (12.0-16.0) g/dL Hct 37.1 (36.0-48.0) % Progress Note: A&P Assessment and Plan (1) DDD (degenerative disc disease): (2) Postoperative pain: (3) Encounter for long-term opiate analgesic use: (4) Sacroiliac joint pain: (5) Heartburn: (6) Acid reflux: Plan Admission findings: Patient mated for status post surgical intervention for her lumbar disc disease-see plan from Dr. Saint Romero. GERD-if patient with some mild epigastric tenderness. Will change patient from her oral Protonix which he would not have here to IV Protonix while she is here. Postop hypotension-monitor daily. Likely just related to anesthesia effect. Patient without symptoms. Postoperative hypoxia-improved already. Encourage patient to do deep breathing exercises. OPEP. Mild acute kidney injury-creatinine slightly elevated compared to baseline of 0.89. Monitor daily. Encourage p.o. intake Overall patient states she is fairly healthy. Reviewed labs daily. Plan per surgery.
[2024-03-27] MEDS: SENNOSIDES/DOCUSATE SODIUM 1 TAB TABLET PO (21:12)
[2024-03-27] MEDS: PANTOPRAZOLE SODIUM 40 MG VIAL IV (21:12)
[2024-03-27] MEDS: OXYCODONE HCL 5 MG TABLET PO (21:13)
[2024-03-28] VITALS (7 sets, daily range): BP systolic 94–123; BP diastolic 49–70; PULSE 83–99; TEMP 36.5–37; O2SAT 91–96
[2024-03-28] MEDS: MORPHINE SULFATE 2 MG/ML SYRINGE IV ×6 (00:14→23:03)
[2024-03-28] MEDS: CEFAZOLIN SODIUM/DEXTROSE,ISO 2 GM/50 ML PIGGYBACK IV (00:14)
[2024-03-28] MEDS: OXYCODONE HCL 5 MG TABLET PO ×3 (06:42→21:53)
[2024-03-28 07:02] LABS: Hematocrit 29.3 % (36.0-48.0); Hemoglobin 9.4 g/dL (12.0-16.0)
[2024-03-28 07:33] LABS: Anion Gap 13.2; BUN Creatinine Ratio 19.2; Carbon Dioxide 23.4 mmol/L (21.0-32.0); Chloride 109 mmol/L (98-107); Estimated GFR (African America >60 (>=60); Estimated GFR (Non-African Ame >60 (>=60); Glucose 101 mg/dL (74-106); Potassium 4.6 mmol/L (3.5-5.1); Sodium 141 mmol/L (136-145)
--- NOTE | 2024-03-28 09:25 | PT.DAILY ---
Physical Therapy Daily Note PT Daily Note/Assess Start: 03/28/24 09:14 Freq: Status: Active Protocol: Document 03/28/24 09:15 [id number] (Rec: 03/28/24 09:25 [id number]) Physical Therapy Daily Note/Assessment Time In/Time Out Time In 07:48 Time Out 08:07 Pain In Pain Level 6 Pain Out Pain Level 5 Subjective Subjective Patient received in bed. Agrees to participating with PT and completing stairs. States she plans to go home perhaps with HH upon discharge . Therapeutic Activity Time Therapeutic Activity Minutes (minutes) 19 Therapeutic Activity Units 1 Therapeutic Activity Treatment Bed Mobility Ability Contact Guard Assist Chair Transfer Ability Modified Independent Therapeutic Activity Comments Verbal cues for log rolling to L side and use of bed rail for assist when transferring from side lying into sitting. Able to sit without UE support or LOB. Requires MOD A to rosey brace, able to pull cables to tighten. Sit to stand to FWW with MIN A +1, places one hand on bed and one hand on FWW. Patient ambulated ~75 ft with FWW with CGA +1. Patient navigated stair with JAMISON hand rails for ascending/descending 4 steps with CGA +1. Patient ambulated ~75 ft. to room and was seated in chair at bedside. [facility] and nursing notified of patient placement and acknowledged information. Total Physical Therapy Time Total Therapy Minutes 19 Total Physical Therapy Units 1 Summary Daily Note Summary Patient demonstrates challenges with donning lumbar brace requiring MOD A and verbal cues. Demonstrates increased ambulation distance and ability to navigate stairs with JAMISON handrails. Patient verbalizes slight fatigue after functional activities. Patient would benefit from HH upon DC to address functional deficits.
[2024-03-28] MEDS: BISACODYL 5 MG TABLET PO (09:55)
[2024-03-28] MEDS: 0.9 % SODIUM CHLORIDE 1,000 ML 100 ML IV ×2 (09:55→21:54)
[2024-03-28] MEDS: POLYETHYLENE GLYCOL 3350 17 GM POWDER PACKET PO (09:56)
[2024-03-28] MEDS: SENNOSIDES/DOCUSATE SODIUM 1 TAB TABLET PO ×2 (09:56→20:47)
--- NOTE | 2024-03-28 10:55 | P.ORPN_ITS ---
Progress Note: A&P Assessment and Plan (1) DDD (degenerative disc disease): (2) Postoperative pain: (3) Encounter for long-term opiate analgesic use: (4) Sacroiliac joint pain: (5) Heartburn: (6) Acid reflux: Plan POD #1 L4-S1 Decompression/ Fusion - Hemovac, 50ml output recorded, RN reports has been emptied twice. Will likely remove tomorrow prior to discharge, keep for today. - ABLA- Hgb 12.2 pre op that has trended down to 9.4, monitor vitals, mildly tachy at 102 this am - Has had BM - PT/OT eval-pt has been up walking, doing well. - Neuro intact, 5/5 strength lower extremities - Pain controlled - Hopeful for discharge tomorrow if pain remains controlled and no issues overnight. Subjective Subjective Principal diagnosis: L4-S1 decompression and fusion Interval history: POD #1 L4-S1 decompression and fusion. Patient did well overnight, pain is controlled. Patient does not have much of an appetite yet but is eating without issue and has had a BM. Patient denies abdominal pain, nausea, and vomiting. Patient denies any paresthesias or muscle spasms this morning. Exam Narrative Exam Narrative: On exam patient is laying in the hospital bed in no apparent distress, age- appropriate, alert and oriented x 3. On inspection of the lumbar dressing it is clean dry and intact, Hemovac in place. Sensation intact to light touch bilateral lower extremities. 5/5 strength bilateral lower extremity. Constitutional Vital Signs, click to edit/add: Last Vital Signs Temp 97.7 F 03/28/24 03:32 Pulse 102 H 03/27/24 20:00 Resp 18 03/28/24 03:32 BP 110/60 03/28/24 03:32 Pulse Ox 96 03/28/24 03:32 O2 Del Method Room Air 03/28/24 03:32 O2 Flow Rate 2 03/27/24 12:53
[2024-03-28 12:56] LABS: Hematocrit 31.2 % (36.0-48.0); Hemoglobin 10.2 g/dL (12.0-16.0)
--- NOTE | 2024-03-28 15:14 | P.IMPN_ITS ---
Progress Note: A&P Assessment and Plan (1) S/P lumbar spinal fusion: Assessment and Plan: s/p L4-S1 decompression and fusion. Doing well. Ambulated w/o assist. Pain is reasonably controlled. Post op pain control/management as per orthopedics. (2) Postoperative anemia: Assessment and Plan: Mild post op anemia. Monitor Hb. (3) DDD (degenerative disc disease): Assessment and Plan: s/p L4-S1 decompression and fusion. PT/OT eval. Discharge home once ok from orthopedic point of view. Qualifiers: Spinal region: thoracolumbar Qualified Code(s): M51.35 - Other intervertebral disc degeneration, thoracolumbar region (4) Acid reflux: Assessment and Plan: on Omeprazole. Qualifiers: Esophagitis presence: without esophagitis Qualified Code(s): K21.9 - Gastro-esophageal reflux disease without esophagitis (5) Osteoporosis: Assessment and Plan: On Prolia as outpatient. Qualifiers: Osteoporosis type: age-related Presence of current pathological fracture: without current pathological fracture Qualified Code(s): M81.0 - Age- related osteoporosis without current pathological fracture Internal Medicine - PN: Subj Subjective Interval history: POD #1. Seen and examined. Reporting poorly controlled pain. However, able to ambulate without assistance. Patient is due for her pain medications. Discussed with Orthopedic PA. Drain needs to stay in place. Will need overnight stay for post op recovery. No acute needs or concerns. No new/worsening neurological signs or symptoms. Exam Constitutional Vital Signs, click to edit/add: Last Vital Signs Temp 98.6 F 03/28/24 11:00 Pulse 87 03/28/24 11:00 Resp 18 03/28/24 11:00 BP 104/56 03/28/24 11:00 Pulse Ox 95 03/28/24 11:00 O2 Del Method Room Air 03/28/24 03:32 O2 Flow Rate 2 03/27/24 12:53 Documenting provider has reviewed patient's vital signs: yes Common normals: no apparent distress and oriented x3 HENMT Common normals: normocephalic and head/scalp atraumatic Respiratory Common normals: normal respiratory effort, no use of accessory muscles and clear to auscultation bilaterally Effort & inspection: able to speak in complete sentences Cardio Common normals: no JVD, regular rate, regular rhythm, S1 normal heart sound and S2 normal heart sound Back & Pelvis Other: Back brace in place. Restricted ROM at thoracolumbar spine. Extremity Common normals: normal to inspection and full ROM Neuro Common normals: oriented x3, moves all extremities and no focal motor deficits Psych Common normals: mental status grossly normal, thought process normal, denies homicidal ideation and denies suicidal ideation Internal Medicine - PN: Obj Da Labs Labs: Laboratory Results - last 24 hr 03/28/24 03/28/24 06:03 12:50 Hgb 9.4 L 10.2 L Hct 29.3 L 31.2 L Sodium 141 Potassium 4.6 Chloride 109 H Carbon Dioxide 23.4 Anion Gap 13.2 BUN 15.0 Creatinine 0.78 Est GFR ( Amer) >60 Est GFR (Non-Af Amer) >60 BUN/Creatinine Ratio 19.2 Glucose 101 Calcium 8.0 L
[2024-03-28] MEDS: OMEPRAZOLE 40 MG CAPSULE.DR PO (20:45)
[2024-03-28] MEDS: CYCLOBENZAPRINE HCL 10 MG TABLET PO (23:03)
[2024-03-29] MEDS: ACETAMINOPHEN 325 MG TABLET 650 MG PO ×2 (02:00→09:37)
[2024-03-29] MEDS: MORPHINE SULFATE 2 MG/ML SYRINGE IV (02:00)
[2024-03-29 03:00] VITALS: BP 102/70; PULSE 98; TEMP 36.7; O2SAT 94
[2024-03-29] MEDS: OXYCODONE HCL 5 MG TABLET PO ×2 (05:33→11:53)
[2024-03-29] MEDS: OMEPRAZOLE 40 MG CAPSULE.DR PO (05:34)
[2024-03-29 07:19] LABS: Hematocrit 26.7 % (36.0-48.0); Hemoglobin 8.5 g/dL (12.0-16.0)
[2024-03-29 07:35] LABS: Anion Gap 10.2; BUN Creatinine Ratio 8.6; Calcium 7.7 mg/dL (8.5-10.1); Carbon Dioxide 24.4 mmol/L (21.0-32.0); Chloride 109 mmol/L (98-107); Estimated GFR (African America >60 (>=60); Estimated GFR (Non-African Ame >60 (>=60); Glucose 84 mg/dL (74-106); Potassium 3.6 mmol/L (3.5-5.1); Sodium 140 mmol/L (136-145)
--- NOTE | 2024-03-29 09:23 | P.ORPN_ITS ---
Progress Note: A&P Assessment and Plan (1) S/P lumbar spinal fusion: (2) Postoperative anemia: (3) DDD (degenerative disc disease): Qualifiers: Spinal region: thoracolumbar Qualified Code(s): M51.35 - Other intervertebral disc degeneration, thoracolumbar region (4) Acid reflux: Qualifiers: Esophagitis presence: without esophagitis Qualified Code(s): K21.9 - Gastro-esophageal reflux disease without esophagitis (5) Osteoporosis: Qualifiers: Osteoporosis type: age-related Presence of current pathological fracture: without current pathological fracture Qualified Code(s): M81.0 - Age- related osteoporosis without current pathological fracture Plan POD #2 L4-S1 Decompression/ Fusion - Hemovac, < 50ml recorded in the last 12 hours, I remove this today, keep Tegaderm in place for 24 hours. Then can change dressing daily as needed. - ABLA- Hgb 8.5 this am, post operative losses, hemovac in place, on IVF possible dilutional component, vitals stable overnight - Has had BM - PT/OT eval - Neuro intact, 5/5 strength lower extremities - Pain controlled-Percocet sent to pharmacy, already on Baclofen, no NSAIDs for 6 months post fusion, Tylenol okay. - Dressing changes daily or as needed after discharge, once dressing is dry for 24hrs can leave open to air. - Discharge today. - Follow up in [address] Reyes, call if any questions or concerns. Plan discussed with my supervising physician Dr. Reyes. Subjective Subjective Principal diagnosis: Post Op L4-S1 Decompression and Fusion Interval history: Pt is POD #2 status post L4-S1 Decompression and Fusion. Patient is doing well, she is moving slow but pain is controlled. She denies any radicular lower extremity symptoms. She has had a bowel movement yesterday. Exam Narrative Exam Narrative: On exam patient is sitting up in the hospital bed, age-appropriate, alert and oriented x 3. On inspection of the midline lumbar wound there is no drainage, erythema, or warmth to touch. 5/5 strength bilateral lower extremities. Sensation intact to light touch bilateral lower extremities. 2+ DP pulses palpated. Constitutional Vital Signs, click to edit/add: Last Vital Signs Temp 98.0 F 03/29/24 03:00 Pulse 98 H 03/29/24 03:00 Resp 16 03/29/24 03:00 BP 102/70 03/29/24 03:00 Pulse Ox 94 L 03/29/24 03:00 O2 Del Method Room Air 03/29/24 03:00 O2 Flow Rate 2 03/27/24 12:53
[2024-03-29] MEDS: BISACODYL 5 MG TABLET PO (09:37)
[2024-03-29] MEDS: SENNOSIDES/DOCUSATE SODIUM 1 TAB TABLET PO (09:37)
[2024-03-29] MEDS: CYCLOBENZAPRINE HCL 10 MG TABLET PO (09:37)
[2024-03-29] MEDS: POLYETHYLENE GLYCOL 3350 17 GM POWDER PACKET PO (09:37)
[2024-03-29 09:42] VITALS: BP 112/50; PULSE 91; TEMP 36.7; O2SAT 97
--- NOTE | 2024-03-29 11:23 | P.IMPN_ITS ---
Progress Note: A&P Assessment and Plan (1) S/P lumbar spinal fusion: Assessment and Plan: s/p L4-S1 decompression and fusion. Doing well. Ambulated w/o assist. Pain is reasonably controlled. Post op pain control/management as per orthopedics. (2) Postoperative anemia: Assessment and Plan: Mild post op anemia. Monitor Hb. Will need CBC within one week (3) DDD (degenerative disc disease): Assessment and Plan: s/p L4-S1 decompression and fusion. PT/OT eval. Discharge home once ok from orthopedic point of view. Qualifiers: Spinal region: thoracolumbar Qualified Code(s): M51.35 - Other intervertebral disc degeneration, thoracolumbar region (4) Acid reflux: Assessment and Plan: on Omeprazole. Qualifiers: Esophagitis presence: without esophagitis Qualified Code(s): K21.9 - Gastro-esophageal reflux disease without esophagitis (5) Osteoporosis: Assessment and Plan: On Prolia as outpatient. Qualifiers: Osteoporosis type: age-related Presence of current pathological fracture: without current pathological fracture Qualified Code(s): M81.0 - Age- related osteoporosis without current pathological fracture Internal Medicine - PN: Subj Subjective Interval history: POD #2. Seen and examined. No overnight events. Drain pulled out by Orthopedic surgery. Anemia with Hb trending down gradually. Will need CBC within one week to ensure Hb does not continue to worsen Exam Constitutional Vital Signs, click to edit/add: Last Vital Signs Temp 98.0 F 03/29/24 09:42 Pulse 91 H 03/29/24 09:42 Resp 18 03/29/24 09:42 BP 112/50 03/29/24 09:42 Pulse Ox 97 03/29/24 09:42 O2 Del Method Room Air 03/29/24 09:42 O2 Flow Rate 2 03/27/24 12:53 Documenting provider has reviewed patient's vital signs: yes Common normals: no apparent distress and oriented x3 Respiratory Common normals: normal respiratory effort, no use of accessory muscles and clear to auscultation bilaterally Effort & inspection: able to speak in complete sentences Cardio Common normals: no JVD, regular rate, regular rhythm, S1 normal heart sound and S2 normal heart sound Back & Pelvis Other: Back brace in place. Restricted ROM at thoracolumbar spine. Extremity Common normals: normal to inspection and full ROM Neuro Common normals: oriented x3, moves all extremities and no focal motor deficits Psych Common normals: mental status grossly normal, thought process normal, denies homicidal ideation and denies suicidal ideation Internal Medicine - PN: Obj Da Labs Labs: Laboratory Results - last 24 hr 03/28/24 03/29/24 12:50 06:39 Hgb 10.2 L 8.5 L Hct 31.2 L 26.7 L Sodium 140 Potassium 3.6 Chloride 109 H Carbon Dioxide 24.4 Anion Gap 10.2 BUN 7.0 Creatinine 0.81 Est GFR ( Amer) >60 Est GFR (Non-Af Amer) >60 BUN/Creatinine Ratio 8.6 Glucose 84 Calcium 7.7 L
--- NOTE | 2024-03-30 10:14 | SWNOTE1 ---
SW checked physician notes and pt was discharged on 03/29. BIANCA to check with [facility] to verify they did receive discharge orders for HH.
--- NOTE | 2024-03-30 11:33 | SWNOTE1 ---
BIANCA reached out to [facility] and they did receive orders for HH. Neva from [facility] reached back out and [facility] went to see pt carly, but she refused HH and they are doing wound care themselves.
--- OUTSIDE RECORDS SUMMARY | 2024-04-01 10:58 | XMS_ITS | CCD ---
Author Organization [facility] Care Team Providers Care Fruit Receiver Name Role Phone PHYSICIAN, DEFAULT Admitting Unavailable [...] PATRICIA Crain Primary Care Unavailable STANFORD, DR APTRICIA Crain Consulting Unavailable ABDOULAYE, DR PATRICIA Crain [...] BYRON ., DR MASSIMO Cook Consulting Unavailable aPtricia Stanford Unavailable Asaad, Imad Unavailable MD Patricia Stanford Primary Care Provider MD Melissa Imravindra Attending Provider Gitorinitis , Andpietro Loomis Attending Unavailable Darrion DIAZ, Andrius Vytautlong Attending Unavailable Darrion DIAZ, Andrius Vcuate Attending Unavailable MD Patricia Stanford Primary Care Provider [phone] MD Melissa Imravindra Attending Provider APLCARI OWENS Attending Unavailable APLINGCARI B Attending Unavailable APLCARI OWENS Attending Unavailable APLCARI OWENS Attending Unavailable Patricia Stanford Primary Care Unavailable Asaad, Imad Admitting Unavailable Asaad, Imad Attending Unavailable Patricia Stanford Primary Care Unavailable Asaad, Imad Admitting Unavailable Asaad, Imad Attending Unavailable Allergies Allergy Classification Reported Allergen(s) Allergy Type Date of Onset Reaction(s) Facility (8 sources) Calcitonin (Circle) *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 Propensity to adverse reactions Comment:severe weakness [employer] Other (2 sources) calcitonin; Translations: [calcitonin] Propensity to adverse reactions 4 Joint Pain [facility] Medications Current Medications Medication Drug Class(es) [...] Subcutaneous for 0 *Pick strength-form from [facility]* Aug, Active diclofenac sodium [...] day for 0 days *Pick strength-form from [facility] for eRX* Oct, Active magnesium oxide 400 mg oral tablet (1 source) Start: 03-13-2024 take 1 tablet by mouth once daily Magnesium Oxide Active 400 MG PO Daily March 13, 2024 12:00am [employer] tablet with a meal Orally Once a day; Note: Source Status: Taking*Pick strength-form from [facility] for eRX*; Provider: Abdoulaye Gomez ( ) Multiple Vitamin (8 sources) take 1 tablet by mouth once daily Multiple Vitamin 1 tablet Orally Once a day Active Mzvuadtd-Qcnw-Qb-Junaid cium-Mins (Daily Multiple For Women) 18 mg iron-400 mcg-500 mg Ca tablet (1 source) Start: 03-13-2024 take 1 tablet by mouth once daily Aspwwqyr-Caqi-Eh-C alcium-Mins (Daily Multiple For Women) 18 mg [...] Other aftercare (8 sources) 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; Translations: [table maker (current) use of bisphosphonates] Episodic Other connective tissue disease (1 source) Muscle weakness (generalized); Translations: [MUSCLE WEAKNESS GENERALIZED] Onset: 09-12-2022 Episodic Other connective tissue disease (1 source) Abnormal posture; Translations: [ABNORMAL POSTURE] Onset: 09-12-2022 Episodic Other connective tissue disease (1 source) Pain in left toe(s) Episodic Other gastrointestinal disorders (2 sources) Change in bowel habit; Translations: [Change in bowel habit] Onset: 03-20-2024 Episodic Other nervous system disorders (4 sources) [...] Test Name Value Interpretation Reference Range Facility Pathology Request for Lab Co rpon 03-20-2024 Pathology Request for Lab Dorothy Normal [facility] Comment on above: Order Comment: PATHO LOGY GI SPECIMEN Result Comment: See report. Scanned copy available in EMR. PERFORMED BY: [place] [id number] PATHOLOGIST COOKER MECHANIC HELENE LEON M.D. Performed By: #### P ATH TO [facility] #### [address] 10-02-2023 L Specimen: [id number] Received: 10/02/23 Status: SOUT Req Num: [id number] Spec Type: Surgical Subm Dr: Sunny Torres MD Tissues: A GASTRIC FOR HP (GASTRIC BX R/O H.PYLORI) B Colon Biopsy (RANDOM COLON BX R/O MICROSCO) Procedures: HE/4, Gross/Micro L4/2, H PYLORI Age/ Patient Sex Location Account Attending Physician Lobo Murdock 78/F [id number] Sunny Torres MD SPEC NUM: [id number] RECD: 10/02/23 STATUS: SOUT REQ NUM: [id number] TEO: 10/02/[address]: Sunny Torres MD ENTERED: 10/02/[address] [facility] [address]: SPEC TYPE: Surgical DEPT: S ORDERED: [...] name, date of and random colon Specimen: [id number] Received: 10/02/23 Status: OJ Brice Num: [id number] Spec Type: Surgical Subm Dr: Sunny Torres MD Tissues: A GASTRIC FOR HP (GASTRIC BX R/O H.PYLORI) B Colon Biopsy (RANDOM COLON BX R/O MICROSCO) Procedures: HE/4, Gross/Micro L4/2, H PYLORI Patient: MaikelLobo [id number] (Continued) Specimen: [id number] Received: 10/02/23 (Continued) Gross Description (Continued) Signed (signature on file) Patito Grimm MD 10/03/23 1670 Specimen: [id number] Received: 10/02/23 Status: OJ Brice Num: [id number] Spec Type: Surgical Subm Dr: Sunny Torres MD Tissues: A GASTRIC FOR HP (GASTRIC BX R/O H.PYLORI) B Colon Biopsy (RANDOM COLON BX R/O MICROSCO) Procedures: HE/4, Gross/Micro L4/2, H PYLORI Patient: Lobo Murdock [id number] (Continued) Specimen: [id number] Received: 10/02/23 (Continued) Gross Description (Continued) biopsy are 2 galvan translucent soft tissue fragments, 0.3 and 0.6 cm in greatest dimensions. Entirely submitted in one cassette labeled B1. CPT Codes [id number] Specimen: [id number] Received: 10/02/23 Status: OJ Brice Num: [id number] Spec Type: Surgical Subm Dr: Sunny Torres MD Tissues: A GASTRIC FOR HP (GASTRIC BX R/O H.PYLORI) B Colon Biopsy (RANDOM COLON BX R/O MICROSCO) Procedures: HE/4, Gross/Micro L4/2, H PYLORI Patient: Lobo Murdock [id number] (Continued) Signed (signature on file) Patito Grimm MD 10/03/23 1430 Normal [facility] CALCIUMon 10-03-2022 Calcium [Mass/Vol] 8.9 mg/dL Normal 8.5-10.1 The [facility] Comment on above: Performed By: #### [place], [place] #### [facility] [address] [address] [address] Dang Grimm CREATININEon 10-03-2022 Creatinine [Mass/Vol] 1.03 mg/dL Critically high 0.55-1.02 [facility] Comment on above: Performed By: #### [place], [place] #### [facility] [address] [address] [address] Dang Grimm EGFR-AF NORTH [place]OREAN >60 Normal >=60 The [facility] Comment on above: Performed By: #### [place], [place] #### [facility] [address] [address] [address] Dang Grimm EGFR-NON AF [place] 52 mL/min/1.73m2 Critically low >=60 [facility] Comment on above: Performed By: #### [place], [place] #### [facility] [address] [place] [address] Dr. Dang Grimm Covid-19 PCR (CVDTB)on SARS-CoV-2 (COVID-19) RNA GENARO+probe Ql (Unsp spec) Not detected Normal NOT DETECTED The [facility] Comment on above: Result Comment: This test is not yet approved or cleared by the [place] FDA. When there are no FDA-approved or cleared tests available, and other criteria are met, FDA can make tests available under an emergency access mechanism called an Emergency Use Authorization (EUA). The EUA for this test is supported by the [place] of Health and Human Service's (HHS's) declaration [...] SARS-CoV-2. Performed By: #### C VDTBH #### [facility] [address] [place], [place] [id number] Dr. Dang Grimm ANAon 04-20-2022 OCTAVIA PATTERN SPECKLED Normal The [facility] Comment on above: Result Comment: [...] 0196 #### [facility] [address] OCTAVIA SCREEN 1:40 Normal <1:40,1:40 The [facility] Comment on above: Result Comment: Test performed using MELCHOR IFA OCTAVIA Hep-2 Test, a pre-standardized assay designed for the qualitative and semi-quantitative detection of antinuclear antibodies. Performed By: #### 1 0196 #### [facility] [address] C REACTIVE PROTEINon 022 CRP [Mass/Vol] 2.5 mg/L Normal 0.0-7.0 The [facility] Comment on above: Performed By: #### 6 1405, 70876 #### [facility] [address] CBC COMPLETE BLOOD COUNTon 0 04-20-2022 Erythrocyte distribution width (RBC) [Ratio] 12.4 % Normal 11.5-15.0 The [facility] Comment on above: Performed By: #### 5 9166, 75922 #### [facility] [address] Hematocrit (Bld) [Volume fraction] 41.6 % Normal 36.0-45.0 The [facility] Comment on above: Performed By: #### 5 9046, 11544 #### [facility] [address] [place] [address], [facility] Hemoglobin (Bld) [Mass/Vol] 13.7 g/dL Normal 12.0-15.0 The [facility] Comment on above: Performed By: #### 5 6506, 39861 #### [facility] [address] [place] [address], [facility] MCH (RBC) [Entitic mass] 31.4 pg Normal 27.0-33.0 The [facility] Comment on above: Performed By: #### 5 6506, 47493 #### [facility] [address] [place] [address], [facility] MCHC (RBC) [Mass/Vol] 32.9 g/dL Normal 32.0-35.0 The [facility] Comment on above: Performed By: #### 5 6506, 83248 #### [facility] [address] [place] [address], [facility] MCV (RBC) [Entitic vol] 95.2 fL Normal 82.0-98.0 The [facility] Comment on above: Performed By: #### 5 6506, 89504 #### [facility] [address] [place] [address], [facility] Nucleated RBC/100 WBC (Bld) [Ratio] 0 % Normal 0-0 The [facility] Comment on above: Performed By: #### 5 6506, 24190 #### [facility] [address] [place] [address], [facility] PLAT CNT 248 10*3/uL Normal 150-400 The [facility] Comment on above: Performed By: #### 5 6506, 57255 #### [facility] [address] [place] [address], [facility] RBC (Bld) [#/Vol] 4.37 10*6/uL Normal 3.80-5.00 [facility] Comment on above: Performed By: #### 5 6506, 69557 #### [facility] [address] WBC (Bld) [#/Vol] 5.54 10*3/uL Normal 4.00-10.60 The [facility] Comment on above: Performed By: #### 5 6506, 83132 #### [facility] [address] CERVICAL SPINE 4 OR 5 VIEWSo 04-20-2022 CERVICAL SPINE 4 OR 5 VIEWS [facility] Department of Radiology [address] [place] [id number] ===== Patient Name: LOBO MURDOCK : 1945 Sex: F Age: Race: White Pt. Location: [facility] Patient Status: O Ordered Date: 04/20/2022 10:50:00 [...] C3 Electronically signed: Christian Upton. Transcribed by: [email or web address], User Resident: Electronically Signed by: CHRISTIAN UPTON @ 04/20/2022 02:33 PM Normal [facility] Comment on above: Order Comment: Views (X-RAY, CERVICAL SPINE): AP, Lateral, Odontoid, Flexion, Extension COMP METABOLIC PANELon 04-20 Albumin [Mass/Vol] 4.1 g/dL Normal 3.5-5.7 [facility] Comment on above: Performed By: #### 3 5515, 47544, 22048 #### [facility] [address] [place] [address], [facility] ALKALINE PHOSPH 63 IU/L Normal 34-104 [facility] Comment on above: Performed By: #### 3 5515, 24022, 11785 #### [facility] [address] [place] [address], [facility] ALT [Catalytic activity/Vol] 15 U/L Normal 7-52 The [facility] Comment on above: Performed By: #### 3 5515, 08873, 56681 #### [facility] [address] [place] [address], [facility] AST [Catalytic activity/Vol] 22 U/L Normal 13-39 [facility] Comment on above: Performed By: #### 3 5515, 84172, 99405 #### [facility] [address] [place] [address], [facility] Bilirubin [Mass/Vol] 0.5 mg/dL Normal 0.3-1.0 The [facility] Comment on above: Performed By: #### 3 5515, 32829, 73025 #### [facility] [address] [place] [address], [place] Calcium [Mass/Vol] 10.2 mg/dL Normal 8.6-10.3 [facility] Comment on above: Performed By: #### 3 5515, 62153, 18380 #### [facility] [address] [place] [address], [place] Chloride [Moles/Vol] 105 mmol/L Normal 98-107 The [facility] Comment on above: Performed By: #### 3 5515, 13681, 86486 #### [facility] [address] [place] [address], [place] CO2 [Moles/Vol] 25 mmol/L Normal 21-31 The [facility] Comment on above: Performed By: #### 3 5515, 55482, 70033 #### [facility] [address] [place] [address], [facility] Creatinine [Mass/Vol] 0.95 mg/dL Normal 0.60-1.20 The [facility] Comment on above: Performed By: #### 3 5515, 26311, 38140 #### [facility] [address] [place] [id number], [place] GFR/1.73 sq M.predicted among non-blacks MDRD (S/P/Bld) [Vol rate/Area] mL/min/{1.73_m2} Normal >60 The [facility] Comment on above: Result Comment: The [facility]'s estimated glomerular filtration rate (eGFR) will [...] of individuals. Performed By: #### 3 5515, 20404, 76004 #### [facility] [address] [place] [address], [place] Glucose [Mass/Vol] 88 mg/dL Normal 70-100 The [facility] Comment on above: Performed By: #### 3 5515, 76822, 29867 #### [facility] [address] [place] [address], [place] Potassium [Moles/Vol] 4.5 mmol/L Normal 3.5-5.1 The [facility] Comment on above: Performed By: #### 3 5515, 57387, 35883 #### [facility] [address] [place] [address], [place] Protein [Mass/Vol] 6.8 g/dL Normal 6.0-8.3 The [facility] Comment on above: Performed By: #### 3 5515, 38374, 99282 #### [facility] [address] [place] [address], [place] Sodium [Moles/Vol] 138 mmol/L Normal 136-145 The [facility] Comment on above: Performed By: #### 3 5515, 68632, 39966 #### [facility] [address] [place] [address], [place] Urea nitrogen [Mass/Vol] 29 mg/dL High 7-25 The [facility] Comment on above: Performed By: #### 3 5515, 43675, 14421 #### [facility] [address] [place] [address], [place] CYCLIC [place]INATED PEPTIDE [place] [id number] 04-20-2022 CYCLIC CIT PEP 2 Units Normal 0-19 The [facility] Comment on above: Result Comment: INTE [...] be monitored and testing repeated. Performed By: [facility] [address] [place] [address] Research Professor: Brett Tamez MD, PhD FERRITINon 04-20-2022 Ferritin [Mass/Vol] 43 ng/mL Normal 11-307 The [facility] Comment on above: Performed By: #### 3 5515, 90453, 48536 #### [address] HAND LEFT 3 VWSon 04-20-2022 HAND LEFT 3 VWS [facility] Department of Radiology [address] [place] [phone] ===== Patient Name: LOBO MURDOCK : 1945 Sex: F Age: Race: White Pt. Location: [facility] Patient Status: O Ordered Date: 04/20/2022 10:50:00 AM Completed Date: 04/20/2022 11:42 AM Requesting Provider: MICHAEL HAHN Attending Provider: ARIADNA NOLAN Report Copy To: Signs & Symptoms: M79.641 Pain in right hand I10 History: [place] Comments: Evaluate Exam: HAND LEFT 3 VWS [...] report. Electronically signed: Chelita Lazcano. Transcribed by: [email or web address], User Resident: NIRMALA MONGE Electronically Signed by: CHELITA LAZCANO @ 04/20/2022 01:29 PM I personally read this/these film(s) with this resident Normal The [facility] Comment on above: Order Comment: Evalu ate HAND RIGHT 3 VWSon 2 HAND RIGHT 3 S [facility] Department of Radiology [address] [place] [phone] ===== Patient Name: LOBO MURDOCK : 1945 Sex: F Age: Race: White Pt. Location: [facility] Patient Status: O Ordered Date: 04/20/2022 10:50:00 [...] report. Electronically signed: Chelita Lazcano. Transcribed by: [email or web address], User Resident: NIRMALA MONGE Electronically Signed by: CHELITA LAZCANO @ 04/20/2022 01:43 PM I personally read this/these film(s) with this resident Normal The [facility] Comment on above: Order Comment: Evalu ate RHEUMATOID FACTOR SERUMon RA <20 Normal 0-20 The [facility] Comment on above: Performed By: #### 6 1405, 52974 #### [facility] [address] [place] [address], [facility] SEDIMENTATION RATEon 022 SED RATE 38 mm/hr High 0-20 The [facility] Comment on above: Performed By: #### 5 6506, 95975 ####[facility] [place] [address], [facility] TIBC- INCLUDES IRONon 2021 FE SATURATION 30 % Normal 20-50 [facility] Comment on above: Performed By: #### 3 5515, 79235, 84933 #### [facility] [address] [place] [address], [facility] Iron [Mass/Vol] 115 ug/dL Normal 50-212 The [facility] Comment on above: Performed By: #### 3 5515, 21632, 42145 #### [facility] [address] [place] [address], [facility] TIBC 378 mcg/dL Normal 250-450 The [facility] Comment on above: Performed By: #### 3 5515, 12792, 78473 #### [facility] [address] [place] [address], [facility] UIBC 263 mcg/dL Normal 155-355 The [facility] Comment on above: Performed By: #### 3 5515, 86332, 53456 #### [facility] [address] [place] [address], [facility] CALCIUMon 04-09-2022 Calcium [Mass/Vol] 9.6 mg/dL Normal 8.5-10.1 [facility] Comment on above: Performed By: #### VALERIO MADRIGAL #### [facility] [address] [place], [place] [address] Dr. Dang Grimm CREATININEon 04-09-2022 Creatinine [Mass/Vol] 1.07 mg/dL Critically high 0.55-1.02 [facility] Comment on above: Performed By: #### VALERIO MADRIGAL #### [facility] [address] [place], [place] [address] Dr. Dang Grimm EGFR-AF NORTH [place]OREAN >60 Normal >=60 [facility] Comment on above: Performed By: #### Bhumika [place], [place] #### [facility] [address] [place], [place] [address] Dr. Dang Grimm EGFR-NON AF [place]OREAN 50 mL/min/1.73m2 Critically low >=60 [facility] Comment on above: Performed By: #### Bhumika ADAMS [place] #### [facility] [address] [place], [place] [address] Dr. Dang Grimm Vital Signs Date Time Vital Sign Value Performing Clinician Facility 03-20-2024 09:15-0400 Diastolic blood pressure 62 mm[Hg] MD Patricia Stanford Work Phone: [facility] 03-20-2024 09:15-0400 Heart rate 72 /min MD Patricia Stanford Work Phone: [facility] 03-20-2024 09:15-0400 Respiratory rate 20 /min MD Patricia Stanford Work Phone: [facility] 03-20-2024 09:15-0400 SaO2% (BldA) [Mass fraction] 99 % MD Patricia Stanford Work Phone: [facility] 03-20-2024 09:15-0400 Systolic blood pressure 115 mm[Hg] MD Patricia Stanford Work Phone: [facility] 03-20-2024 07:18-0400 Body height 156.84 cm MD Patricia Stanford Work Phone: [facility] 03-20-2024 07:18-0400 Body weight 55.33 kg MD Patricia Stanford Work Phone: [facility] 03-16-2024 09:04-0400 Body height 156.84 cm MD Patricia Stanford Work Phone: [facility] 03-16-2024 09:04-0400 Body mass index (BMI) [Ratio] 22.8 kg/m2 MD Patricia Stanford Work Phone: [facility] 03-16-2024 09:04-0400 Body weight 56.24 kg MD Patricia Stanford Work Phone: [facility] 03-16-2024 09:04-0400 Diastolic blood pressure 72 mm[Hg] MD Patricia Stanford Work Phone: [facility] 03-16-2024 09:04-0400 Heart rate 81 /min MD Patricia Stanford Work Phone: [facility] 03-16-2024 09:04-0400 Systolic blood pressure 122 mm[Hg] MD Patricia Stanford Work Phone: [facility] 10-02-2023 09:55-0500 Diastolic blood pressure 67 mm[Hg] MD Patricia Stanford Work Phone: [facility] 10-02-2023 09:55-0500 Heart rate 80 /min MD Patricia Stanford Work Phone: [facility] 10-02-2023 09:55-0500 Respiratory rate 16 /min MD Patricia Stanford Work Phone: [facility] 10-02-2023 09:55-0500 SaO2% (BldA) [Mass fraction] 99 % MD Patricia Stanford Work Phone: [facility] 10-02-2023 09:55-0500 Systolic blood pressure 108 mm[Hg] MD Patricia Stanford Work Phone: [facility] 10-02-2023 07:07-0500 Body height 160.02 cm MD Patricia Stanford Work Phone: [facility] 10-02-2023 07:07-0500 Body weight 56.69 kg MD Patricia Stanford Work Phone: [facility] 08-30-2023 10:30-0500 Body height 157.48 cm Patricia Stanford Other [facility] 08-30-2023 10:30-0500 Body mass index (BMI) [Ratio] 21.73 kg/m2 Patricia Stanford Other [facility] [employer] Other 08-30-2023 10:30-0500 Body weight 53.89 kg Patricia Stanford Other [facility] [employer] Other 08-30-2023 10:30-0500 Body weight 53.88 kg MD Patricia Stanford Work Phone: [facility] 08-30-2023 10:30-0500 Diastolic blood pressure 74 mm[Hg] Patricia Stanford Other [facility] 08-30-2023 10:30-0500 Systolic blood pressure 122 mm[Hg] Patricia Stanford Other [facility] 08-21-2023 13:45-0500 Body height 157.48 cm Imad Asaad Other [facility] 08-21-2023 13:45-0500 Body mass index (BMI) [Ratio] 21.58 kg/m2 Imad Asaad Other [facility] [employer] Other 08-21-2023 13:45-0500 Body weight 53.52 kg Imad Asaad Other [facility] 07-15-2023 11:30-0500 Body height 157.48 cm Patricia Stanford Other [facility] 07-15-2023 11:30-0500 Body mass index (BMI) [Ratio] 21.73 kg/m2 Patricia Stanford Other [facility] [employer] Other 07-15-2023 11:30-0500 Body weight 53.89 kg Patricia Stanford Other [facility] [employer] Other 07-15-2023 11:30-0500 Body weight 53.88 kg MD Patricia Stanford Work Phone: [facility] 07-15-2023 11:30-0500 Diastolic blood pressure 78 mm[Hg] Patricia Stanford Other [facility] [facility] 07-15-2023 11:30-0500 Systolic blood pressure 148 mm[Hg] Patricia Stanford Other [facility] 07-06-2023 09:20-0500 Body height 157.48 cm MD Patricia Stanford Work Phone: [facility] 07-06-2023 09:20-0500 Body weight 55.51 kg MD Patricia Stanford Work Phone: [facility] Encounters Encounter Date Encounter Type Care Provider Facility Start: 03-20-2024 Non-patient / Non-visit MD Marlys Stanford Work Phone: [facility] Physician [facility] Gastroenterology Work Phone: Start: 03-20-2024 End: 03-20-2024 Admission to same day surgery center MD Patricia Stanford Work Phone: [facility] Work Phone: Start: 03-20-2024 End: 03-20-2024 ambulatory MD Patricia Stanford Work Phone: [facility] Work Phone: Start: 03-18-2024 End: 03-18-2024 ambulatory CARI B APLING Not Available Start: 03-17-2024 Preoperative state MD Patricia bliss Work Phone: [facility] Start: 03-16-2024 End: 03-16-2024 ambulatory CARI B APLING Not Available Start: 03-16-2024 End: 03-16-2024 Patient encounter procedure MD Patricia Stanford Work Phone: [facility] Work Phone: Start: 10-14-2023 End: 10-15-2023 ambulatory Ara Maier MD Facility: [facility] Start: 10-04-2023 End: 10-04-2023 ambulatory Imad Asaad Other [employer] Other Start: 10-04-2023 Telephone encounter Imad Asaad [facility] Start: 10-02-2023 Non-patient / Non-visit MD Marlys Stanford Work Phone: [facility] Gastroenterology Work Phone: Start: 10-02-2023 End: 10-02-2023 Admission to same day surgery center MD Patricia Stanford Work Phone: [facility] Work Phone: Start: 10-02-2023 End: 10-02-2023 ambulatory MD Patricia Stanford Work Phone: [facility] Work Phone: Start: 09-23-2023 End: 09-23-2023 ambulatory Patricia Stanford Other [employer] Other Start: 09-23-2023 Telephone encounter Patricia Stanford [facility] Start: 09-09-2023 End: 09-09-2023 ambulatory CARI B APLING Not Available Start: 09-04-2023 End: 09-04-2023 ambulatory CARI B APLING Not Available Start: 09-03-2023 End: 09-03-2023 ambulatory Patricia Stanford Other [employer] Other Start: 09-03-2023 Telephone encounter Patricia Stanford [facility] [employer] Start: 08-30-2023 End: 08-30-2023 ambulatory Patricia Stanford Other [employer] Other Start: 08-30-2023 Office outpatient vi sit 15 minutes Patricia Stanford [facility] Start: 08-30-2023 End: 08-30-2023 Patient encounter procedure MD Patricia Stanford Work Phone: [facility] Physician [facility]- Start: 08-23-2023 End: 08-23-2023 ambulatory Patricia Stanford Other [employer] Other Start: 08-23-2023 Telephone encounter Patricia Stanford [facility] Start: 08-21-2023 End: 08-21-2023 ambulatory Imad Asaad Other [employer] Other Start: 08-21-2023 Office outpatient ne w 45 minutes Imad Asaad [facility] Start: 08-21-2023 End: 08-21-2023 Patient encounter procedure MD Patricia Stanford Work Phone: [facility] Gastroenterology Work Phone: Start: 07-15-2023 End: 07-15-2023 ambulatory Patricia Stanford Other [employer] Other Start: 07-15-2023 Office outpatient vi sit 15 minutes Patricia Stanford [facility] Start: 07-15-2023 Telephone encounter Patricia Stanford [facility] Start: 07-15-2023 End: 07-15-2023 Patient encounter procedure MD Patricia Stanford Work Phone: [facility] Physician [facility] Work Phone: Start: 07-06-2023 End: 07-06-2023 Patient encounter procedure MD Patricia Stanford Work Phone: [facility] Physician [facility] Urgent Care Luis Alfredo Work Phone: Start: 05-06-2023 End: 05-07-2023 ambulatory Ara Maier MD [facility] Start: 04-22-2023 End: 04-23-2023 ambulatory Ara Maier MD Facility:[facility] Start: 10-03-2022 End: 10-05-[address] PATRICIA STANFORD Facility:[facility] Start: 09-27-2022 End: 09-28-[address] MASSIMO MATTHEWS . Facility:[facility] Start: 09-11-2022 End: 09-11-[address] MASSIMO MATTHEWS . Facility:[facility] Start: 09-07-2022 End: 10-17-[address] MASSIMO MATTHEWS . Facility:[facility] Start: 09-04-2022 End: 09-05-[address] MASSIMO MATTHEWS . Facility:[facility] Start: 07-26-2022 Encounter for preprocedural laboratory examination DR MASSIMO MATTHEWS . [facility] Start: 07-24-2022 End: 07-24-[address] MASSIMO MATTHEWS . Facility:[facility] Start: 07-20-2022 End: 07-21-[address] MASSIMO MATTHEWS . Facility:[facility] Start: 07-20-2022 End: 07-21-2022 Encounter for preprocedural laboratory examination DR MASSIMO MATTHEWS . Facility:[facility] Start: 07-11-2022 End: 07-12-[address] MASSIMO MATTHEWS . Facility:[facility] Start: 06-19-2022 End: 06-19-[address] MASSIOM MATTHEWS . Facility:[facility] Start: 06-06-2022 End: 06-07-[address] MASSIMO MATTHEWS . Facility:[facility] Start: 04-20-2022 End: 04-21-2022 ambulatory AIRADNA NOLAN Facility:[facility] Start: 04-09-2022 End: 04-10-[address] PATRICIA STANFORD Facility: Start: 02-27-2022 End: 02-28-2022 ambulatory DEFAULT PHYSICIAN Facility:[facility] Start: 02-22-2022 End: 02-23-[address] MASSIMO MATTHEWS . Facility:[facility] Start: 12-06-2021 ambulatory MICHELE SALDAÑA . Facility: 1 Start: 11-30-2021 End: 12-01-[address] MASSIMO MATTHEWS . Facility:[facility] Start: 10-25-2020 Pre-procedure evaluation check Patricia Stanford Other [employer] Other Procedures Date Procedure Procedure Detail Performing Clinician Start: 03-20-2024 Colonoscopy MD Patricia Stanford Work Phone: Start: 10-02-2023 Esophagogastroduodenoscopy MD Patricia fox Work Phone: Start: 07-10-2017 Screening mammography Patricia Stanford Other Start: 07-19-2016 General examination of patient Patricia padilla Other Plan of Treatment Date Care Activity Detail Author Start: 03-20-2024 [facility] Start: 10-02-2023 [facility] Patient Education Hemorrhoids (D C) Know your Meds [facility] Work Phone: Immunizations Immunization Date Immunization Notes Care Provider Fa cility 05-17-2022 zoster vaccine, live Patricia Stanford Other [facility] 04-23-2022 influenza virus vaccine, split virus (incl. purified surface antigen) Patricia Stanford Other [facility] [employer] Other 04-23-2022 influenza virus vaccine, unspecified formulation MD Patricia Stanford Work Phone: [facility] 04-23-2022 pneumococcal polysaccharide vaccine, 23 valent Patricia Stanford Other [facility] 04-23-2022 tetanus toxoid, adsorbed Patricia Stanford Other [facility] 05-25-2021 influenza virus vaccine, split virus (incl. purified surface antigen) Patricia Stanford Other [employer] [facility] [employer] Other 05-25-2021 influenza virus vaccine, unspecified formulation MD Patricia Stanford Work Phone: [facility] 10-18-2020 COVID-19 Vaccine Moderna - Documentation Purposes Only Patricia Stanford Other [facility] 09-19-2020 COVID-19 Vaccine Moderna - Documentation Purposes Only Patricia Stanford Other [facility] 04-16-2020 influenza virus vaccine, split virus (incl. purified surface antigen) Patricia Stanford Other [facility] [employer] Other 04-16-2020 influenza virus vaccine, unspecified formulation MD Patricia Stanford Work Phone: [facility] 05-12-2019 influenza virus vaccine, split virus (incl. purified surface antigen) Patricia Stanford Other [facility] [employer] Other 05-12-2019 influenza virus vaccine, unspecified formulation MD Patricia Stanford Work Phone: [facility] 04-18-2018 influenza virus vaccine, split virus (incl. purified surface antigen) Patricia Stanford Other [facility] [employer] Other 04-18-2018 influenza virus vaccine, unspecified formulation MD Patricia Stanford Work Phone: [facility] 07-10-2017 pneumococcal conjuga te vaccine, 13 valent Patricia Stanford Other [facility] 04-18-2017 influenza virus vaccine, split virus (incl. purified surface antigen) Patricai Stanford Other [facility] [employer] Other 04-18-2017 influenza virus vaccine, unspecified formulation MD Patricia Stanford Work Phone: [facility] 05-09-2016 influenza virus vaccine, split virus (incl. purified surface antigen) Patricia Stanford Other [facility] [employer] Other 05-09-2016 influenza virus vaccine, unspecified formulation MD Patricia Stanford Work Phone: [facility] 05-27-2013 tetanus and diphther ia toxoids, adsorbed, preservative free, for adult use (5 Lf of tetanus toxoid and 2 Lf of diphtheria toxoid) Patricia Stanford Other [facility] 12-24-2011 pneumococcal polysaccharide vaccine, 23 valent Patricia Stanford Other [facility] Payers Date Payer Category Payer Self-pay 2022 Medicare 2022 Unknown 1959 Medicare [id number] 1959 Unknown [id number] 1945 Unknown [id number] 2.16.8 40.1.250163.3.579.2.647 1945 Unknown [id number] 2.16.8 40.1.678970.3.579.2.647 1945 Unknown [id number] 2.16.84 0.1.704671.3.579.2.593 1945 Unknown [id number] 2.16.84 0.1.217324.3.579.2.593 1946 Unknown [id number] 2.16.84 0.1.514532.3.579.2.593 1946 Unknown [id number] 2.16.84 0.1.935664.3.579.2.593 1946 Unknown [id number] 2.16.84 0.1.209866.3.579.2.593 1946 Unknown [id number] 2.16.84 0.1.531506.3.579.2.593 1946 Unknown [id number] 2.16.84 0.1.030899.3.579.2.593 1946 Unknown [id number] 2.16.84 0.1.035707.3.579.2.593 1946 Unknown [id number] 2.16.84 0.1.064932.3.579.2.593 1946 Unknown [id number] 2.16.84 0.1.167211.3.579.2.593 1946 Unknown [id number] 2.16.84 0.1.544010.3.579.2.593 1946 Unknown [id number] 2.16.84 0.1.057458.3.579.2.593 1946 Unknown [id number] 2.16.84 0.1.273937.3.579.2.593 1946 Unknown [id number] 2.16.84 0.1.112409.3.579.2.593 1946 Unknown [id number] 2.16. 840.1.358463.3.579.2.196 1946 Unknown [id number] 2.16. 840.1.540426.3.579.2.196 1946 Unknown [id number] 2.16. 840.1.392158.3.579.2.196 1946 Unknown [id number] 2.16.84 0.1.907882.3.579.2.1259 1946 Unknown [id number] 2.16.84 0.1.604599.3.579.2.1259 1946 Unknown [id number] 2.16.84 0.1.717401.3.579.2.1259 1945 Unknown [id number] 2.16.84 0.1.065648.3.579.2.1259 Medicare Medicare Outpatient [id number] Unknown [id number] 2.16.8 40.1.277218.3.579.2.531 Social History Date Type Detail Facility Unknown if ever smoked [employer] Other Sex Assigned At Sex Assigned At Bir th [employer] Other Start: 10-02-2023 End: 03-20-2024 Tobacco smoking status NHIS Never smoked tobacco (finding) [facility] Start: 1945 Sex Assigned At Female F [facility] Goals Date Patient Goal Desired Activity /State Clinical Notes 11-30-2021 to 03-20-2024 Note Date & Type Note Facility 03-20-2024 Procedure note [facility] 10-02-2023 Procedure note [facility] 08-30-2023 Evaluation note Encounter Date [...] try OTC ones in meantime. Referral placed. [employer] Other 01-10-2024 Evaluation note* Encounter Date Diagnosis Assessment Notes Treatment Notes Treatment Clinical Notes Aug, GERD (gastroesophageal reflux disease) (ICD-10 - K21.9) Aug, Chronic diarrhea (ICD-10 - K52.9) Patient reports that her last colonoscopy was at the [facility] about 11 years ago and that she can not remember who preformed the procedure Aug, Abdominal pain (ICD-10 - R10.9) Aug, Weight loss, unintentional (ICD-10 - R63.4) Aug, Change in bowel habits (ICD-10 - R19.4) Patinet is advised to have a colonoscopy ordered, scheduled and prep instructions given today Risks and benefits of procedure explained to patient; patient verbalizes understanding. [employer] Other 12-04-2023 Evaluation note* Encounter Date Diagnosis [...] (ICD-10 - M81.0) Due for Dexa 08/2023 [employer] Other 02-16-2023 NoteCONSULTATION CONSULTATION DATE: 09/27/2022 HISTORY OF PRESENT ILLNESS: This is a 76-year-old female who returns to the clinic status post LES on 09/11/2022. The patient states she was afforded between 50-60% relief. Depending on her physical activity, determines her level of comfort. 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 NoteCONSULTATION CONSULTATION DATE: 09/04/2022 HISTORY OF PRESENT [...] patient understands and would like to proceed.[id number] NoteCONSULTATION CONSULTATION DATE: 07/11/2022 HISTORY OF PRESENT [...] followed up in the clinic post procedure.[id number] NoteCONSULTATION PROCEDURE DATE: 07/11/2022 PREOPERATIVE DIAGNOSIS: Bilateral [...] will be followed up in the clinic.[facility] 06-06-2022 NoteCONSULTATION CONSULTATION DATE: 06/06/2022 HISTORY [...] pain returning. 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 [id number] NoteCONSULTATION CONSULTATION DATE: 02/22/2022 This is a [...] region. The patient has not seen a tactical/mobile watch officer in the past. REVIEW OF SYSTEMS, PAST [...] mg q.h.s. A referral to rheumatology near [place] will be sent on her behalf and I highly encouraged her to seek consultation, particularly since she has a familial history of autoimmune diseases. The patient agrees with the plan of care and will be followed up in the office in three months' time. [facility] Signed and Approved by: MICHELE SALDAÑA . 03/02/2022 14:16:00[facility]04-21-2022 NoteCONSULTATION Consultation Date:11/30/2021 PREOPERATIVE DIAGNOSIS: Right gluteal [...] will be followed up in the office. [facility] Signed and Approved by: MICHELE SALDAÑA . 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 Lying down and using heat decrease her pain. Prior to the procedure, she was in a state of acute pain and was placed on a short term course of [place] 5/325 b.i.d. p.r.n. Patient states she only [...] of care and would like to proceed. [facility] Signed and Approved by: MICHELE SALDAÑA . 12/06/2021 16:15:00[facility] HealthcareEvaluation noteNo InformationNort [employer] Other Evaluation noteNo assessment information available [facility] Work Phone: Evaluation note* Diagnosis Onset Date Resolution Status Lumbar spondylosis acute Preoperative clearance acute Situational depression acute [facility] Work Phone: History and physical note Author Sunny Torres [facility] October 02, 2023 8:54am Note Date/Time October 02, 2023 8:54am [facility] [address] [place] [address] Gastroenterology H&P Signed Patient: Lobo Murdock MR#: [id number] : 1945 Acct:[id number] Age/Sex: 78 / F Adm Date: 4 Loc: Room: Type: [facility] Attending Dr: Sunny Torres MD Copies [...] signed by Sunny Torres MD> 10/02/23 0854 [facility] Work Phone: History and physical note Author Sunny Torres [facility] March 20, 2024 8:43am Note Date/Time March 20, 2024 8:4 3am [facility] [address] [place] [address] Gastroenterology H&P Signed Patient: Lobo Murdock MR#: [id number] : 1945 Acct:[id number] Age/Sex: 78 / F Adm Date: 4 Loc: Room: Type: [facility] Attending Dr: Sunny Torres MD Copies [...] Torres M.D. Documented By: Sunny Torres MD 03/20/24841 Signed By: <Electronically signed by Sunny Torres MD> 03/20/24842 [facility] Work Phone: History general Narrative - Reported* [...] shoulder pain 1982 Hospitalization History migraines 1992 [employer] Other Hospital Discharge instructions Additional Instructions DISCHARGE [...] up in the office - Office number [phone]. [facility] Work Phone: Summary Purpose Family [...] 1 Chronic diarrhea (K5 2.9) Referral Organization [facility] pipo Referring Provider First Name Patricia Referring Provider Last Name Abdoulaye Referring Provider [facility] HandMinder Referred Organization [facility] Gastroenterolo gy Referred Address [address],[address] Referred Provider Specialty Gastroentero logy Referral Priority Routine Reason *FU 09/06 R foot p ain Diagnosis 1 Pain of left great t oe (M79.675) Referral Organization [facility] Referring Provider First Name Patricia Referring Provider Last Name Abdoulaye Referring Provider Specialty [facility] HandMinder Referred Organization [facility] Referred Provider Odin Chong Referred Address [address], [place],[address] Referred Provider Specialty Podiatry - S urgical [...] section and content) DATE CREATED AUTHOR 05/09/2022 [facility] DATE CREATED AUTHOR AUTHOR'S ORGANIZ ATION [facility] [facility] DATE CREATED AUTHOR AUTHOR'S ORGANIZ ATION 10/18/2023 [facility] DATE CREATED AUTHOR AUTHOR'S ORGANIZ ATION 03/20/2024 [facility] EPIC DATE CREATED AUTHOR AUTHOR'S ORGANIZ ATION 04/01/2024 [facility] ysician [facility] REASON FOR VISIT (unrecogniz [...] BE BASED ON THE PRIMARY CLINICAL RECORDS. [employer] provides no warranty or guarantee of the accuracy or completeness of information in this document.
--- OUTSIDE RECORDS SUMMARY | 2024-04-01 10:59 | XMS_ITS | CCD ---
Author Organization [facility] Care Team Providers Care Energy Conservation Director Name Role Phone PHYSICIAN, DEFAULT Admitting [...] MATTHEWS ., DR MASSIMO Cook Admitting Unavailable ABODULAYE, DR PATRICIA Crain Primary Care Unavailable MATTHEWS [...] Unavailable MD Patricia Stanford Primary Care Provider [phone] MD Melissa Imravindra Attending Provider Gitorinitis , Andpietro Loomis Attending Unavailable Darrion DIAZ, Andrius Vytautlong Attending Unavailable Darrion DIAZ, Andrius Vcuate Attending Unavailable MD Patricia Stanford Primary Care Provider MD Melissa Imravindra Attending Provider [phone] APLCARI OWENS Attending Unavailable APLINGCARI B Attending Unavailable APLCARI OWENS Attending Unavailable APLCARI OWENS Attending Unavailable Patricia Stanford Primary Care Unavailable Asaad, Imad Admitting Unavailable Asaad, Imad Attending Unavailable Patricia Stanford Primary Care Unavailable Asaad, Imad Admitting Unavailable Asaad, Imad Attending Unavailable Allergies Allergy Classification Reported Allergen(s) Allergy Type Date of Onset Reaction(s) Facility (8 sources) Calcitonin ([place]) *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 Medications Current Medications Medication Drug Class(es) [...] Active Subcutaneous for 0 *Pick strength-form from [facility] for eRX* Aug, Active diclofenac sodium [...] day for 0 days *Pick strength-form from [employer] for eRX* Oct, Active magnesium oxide 400 mg oral tablet (1 source) Start: 03-13-2024 take 1 tablet by mouth once daily Magnesium Oxide Active 400 MG PO Daily March 13, 2024 12:00am [employer] tablet with a meal Orally Once a day; Note: Source Status: Taking*Pick strength-form from [employer] for eRX*; Provider: Abdoulaye Gomez ( ) Multiple Vitamin (8 sources) take 1 tablet by mouth once daily Multiple Vitamin 1 tablet Orally Once a day Active Pwazoyze-Fvpl-Jj-Junaid cium-Mins (Daily Multiple For Women) 18 mg iron-400 mcg-500 mg Ca tablet (1 source) Start: 03-13-2024 take 1 tablet by mouth once daily Qzywkkkm-Glhb-Jq-C alcium-Mins (Daily Multiple For Women) 18 mg [...] Other aftercare (8 sources) 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; Translations: [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 Scanned copy available in EMR. PERFORMED BY: [place] [id number] PATHOLOGIST BOROUGH COORDINATOR HELENE LEON M.D. Performed By: #### P ATH TO [facility] #### [address] 10-02-2023 L Specimen: [id number] Received: 10/02/23 Status: SOUT Req Num: [id number] Spec Type: Surgical Subm Dr: Sunny Torres MD Tissues: A GASTRIC FOR HP (GASTRIC BX R/O H.PYLORI) B Colon Biopsy (RANDOM COLON BX R/O MICROSCO) Procedures: HE/4, Gross/Micro L4/2, H PYLORI Age/ Patient Sex Location Account Attending Physician Lobo Murdock 78/F [id number] Sunny Torres MD SPEC NUM: [id number] RECD: 10/02/23 STATUS: SOUT REQ NUM: [id number] TEO: 10/02/[address]: Sunny Torres MD ENTERED: 10/02/23 [facility] DR: SPEC TYPE: Surgical DEPT: S ORDERED: [...] name, date of and random colon Specimen: [id number] Received: 10/02/23 Status: OJ Brice Num: [id number] Spec Type: Surgical Subm Dr: Sunny Torres MD Tissues: A GASTRIC FOR HP (GASTRIC BX R/O H.PYLORI) B Colon Biopsy (RANDOM COLON BX R/O MICROSCO) Procedures: HE/4, Gross/Micro L4/2, H PYLORI Patient: MaikelLobo [id number] (Continued) Specimen: [id number] Received: 10/02/23 (Continued) Gross Description (Continued) Signed (signature on file) Patito Grimm MD 10/03/23 4590 Specimen: [id number] Received: 10/02/23 Status: OJ Brice Num: [id number] Spec Type: Surgical Subm Dr: Sunny Torres MD Tissues: A GASTRIC FOR HP (GASTRIC BX R/O H.PYLORI) B Colon Biopsy (RANDOM COLON BX R/O MICROSCO) Procedures: HE/4, Gross/Micro L4/2, H PYLORI Patient: Lobo Murdock [id number] (Continued) Specimen: [id number] Received: 10/02/23 (Continued) Gross Description (Continued) biopsy are 2 galvan translucent soft tissue fragments, 0.3 and 0.6 cm in greatest dimensions. Entirely submitted in one cassette labeled B1. CPT Codes [id number] Specimen: [id number] Received: 10/02/23 Status: OJ Brice Num: [id number] Spec Type: Surgical Subm Dr: Sunny Torres MD Tissues: A GASTRIC FOR HP (GASTRIC BX R/O H.PYLORI) B Colon Biopsy (RANDOM COLON BX R/O MICROSCO) Procedures: HE/4, Gross/Micro L4/2, H PYLORI Patient: Lobo Murdock [id number] (Continued) Signed (signature on file) Patito Grimm MD 10/03/23 1430 Normal [facility] CALCIUMon 10-03-2022 Calcium [Mass/Vol] 8.9 mg/dL Normal 8.5-10.1 [facility] Comment on above: Performed By: #### C [place], [place] #### [facility] [address] [address] [address] Dang Grimm CREATININEon 10-03-2022 Creatinine [Mass/Vol] 1.03 mg/dL Critically high 0.55-1.02 [facility] Comment on above: Performed By: #### [place], [place] #### [facility] [address] [address] [address] Dang Grimm EGFR-AF MONTENEGRIN >60 Normal >=60 The [facility] Comment on above: Performed By: #### [place], [place] #### [facility] [address] [address] [address] Dang Grimm EGFR-NON AF MONTENEGRIN 52 mL/min/1.73m2 Critically low >=60 [facility] Comment on above: Performed By: #### C [place], [place] #### [facility] [address] [place] [address] Dr. Dang Grimm Covid-19 PCR (CVDTB)on SARS-CoV-2 (COVID-19) RNA GENARO+probe Ql (Unsp spec) Not detected Normal NOT DETECTED [facility] Comment on above: Result Comment: This test is not yet approved or cleared by the [place] FDA. When there are no FDA-approved or cleared tests available, and other criteria are met, FDA can make tests available under an emergency access mechanism called an Emergency Use Authorization (EUA). The EUA for this test is supported by the [place] of Health and Human Service's (HHS's) declaration [...] SARS-CoV-2. Performed By: #### C VDTBH #### [facility] [address] [place], [place] [id number] Dr. Dang Grmim ANAon 04-20-2022 OCTAVIA PATTERN SPECKLED Normal [facility] Comment on above: Result Comment: The [...] authority. Performed By: #### 1 0196 #### [facility] [address] OCTAVIA SCREEN 1:40 Normal <1:40,1:40 [facility] Comment on above: Result Comment: Test performed using MELCHOR IFA OCTAVIA Hep-2 Test, a pre-standardized assay designed for the qualitative and semi-quantitative detection of antinuclear antibodies. Performed By: #### 1 0196 #### [facility] [address] C REACTIVE PROTEINon 022 CRP [Mass/Vol] 2.5 mg/L Normal 0.0-7.0 The [facility] Comment on above: Performed By: #### 6 1405, 36283 #### [facility] [address] CBC COMPLETE BLOOD COUNTon 0 04-20-2022 Erythrocyte distribution width (RBC) [Ratio] 12.4 % Normal 11.5-15.0 [facility] Comment on above: Performed By: #### 5 1966, 87807 #### [facility] [address] Hematocrit (Bld) [Volume fraction] 41.6 % Normal 36.0-45.0 [facility] Comment on above: Performed By: #### 5 2366, 16143 #### [facility] [address] [place] [address], [facility] Hemoglobin (Bld) [Mass/Vol] 13.7 g/dL Normal 12.0-15.0 [facility] Comment on above: Performed By: #### 5 6506, 54758 #### [facility] [address] [place] [address], [facility] MCH (RBC) [Entitic mass] 31.4 pg Normal 27.0-33.0 [facility] Comment on above: Performed By: #### 5 6506, 42619 #### [facility] [address] [facility] [place] [address], [facility] MCHC (RBC) [Mass/Vol] 32.9 g/dL Normal 32.0-35.0 [facility] Comment on above: Performed By: #### 5 6506, 71955 #### [facility] [address] [facility] [place] [address], [facility] MCV (RBC) [Entitic vol] 95.2 fL Normal 82.0-98.0 [facility] Comment on above: Performed By: #### 5 6506, 14085 #### [facility] [address] [facility] [place] [address], [facility] Nucleated RBC/100 WBC (Bld) [Ratio] 0 % Normal 0-0 [facility] Comment on above: Performed By: #### 5 6506, 58147 #### [facility] [address] [facility] [place] [address], [facility] PLAT CNT 248 10*3/uL Normal 150-400 [facility] Comment on above: Performed By: #### 5 6506, 16350 #### [facility] [address] [facility] [place] [address], [facility] RBC (Bld) [#/Vol] 4.37 10*6/uL Normal 3.80-5.[address] [facility] Comment on above: Performed By: #### 5 6506, 05512 #### [facility] [address] WBC (Bld) [#/Vol] 5.54 10*3/uL Normal 4.00-10.60 [facility] Comment on above: Performed By: #### 5 6506, 27140 #### [facility] [address] CERVICAL SPINE 4 OR 5 VIEWSo 04-20-2022 CERVICAL SPINE 4 OR 5 VIEWS [facility] Department of Radiology [address] [place] [phone] ===== Patient Name: LOBO MURDOCK : 1945 Sex: F Age: Race: White Pt. Location: [facility] Patient Status: O Ordered Date: 04/20/2022 10:50:00 [...] C3 Electronically signed: Christian Upton. Transcribed by: [email or web address], User Resident: Electronically Signed by: CHRISTIAN UPTON @ 04/20/2022 02:33 PM Normal [facility] Comment on above: Order Comment: Views (X-RAY, CERVICAL SPINE): AP, Lateral, Odontoid, Flexion, Extension COMP METABOLIC PANELon 04-20 Albumin [Mass/Vol] 4.1 g/dL Normal 3.5-5.[address] [facility] Comment on above: Performed By: #### 3 5515, 45616, 15753 #### [facility] [address] [facility] [place] [address], [facility] ALKALINE PHOSPH 63 IU/L Normal 34-104 [facility] Comment on above: Performed By: #### 3 5515, 74960, 24231 #### [facility] [address] [facility] [place] [address], [facility] ALT [Catalytic activity/Vol] 15 U/L Normal 7-52 [facility] Comment on above: Performed By: #### 3 5515, 71839, 64754 #### [facility] [address] [facility] [place] [address], [facility] AST [Catalytic activity/Vol] 22 U/L Normal 13-39 [facility] Comment on above: Performed By: #### 3 5515, 30520, 62861 #### [facility] [address] [facility] [place] [address], [facility] Bilirubin [Mass/Vol] 0.5 mg/dL Normal 0.3-1.0 [facility] Comment on above: Performed By: #### 3 5515, 66140, 43951 #### [facility] [address] [place] [address], [place] Calcium [Mass/Vol] 10.2 mg/dL Normal 8.6-10.[address] [facility] Comment on above: Performed By: #### 3 5515, 86751, 39300 #### [facility] [address] [place] [address], [place] Chloride [Moles/Vol] 105 mmol/L Normal 98-107 [facility] Comment on above: Performed By: #### 3 5515, 95406, 14568 #### [facility] [address] [place] [address], [place] CO2 [Moles/Vol] 25 mmol/L Normal 21-31 [facility] Comment on above: Performed By: #### 3 5515, 35909, 94423 #### [facility] [address] [place] [address], [facility] Creatinine [Mass/Vol] 0.95 mg/dL Normal 0.60-1.20 [facility] Comment on above: Performed By: #### 3 5515, 56396, 86531 #### [facility] [address] [place] [id number], [place] GFR/1.73 sq M.predicted among non-blacks MDRD (S/P/Bld) [Vol rate/Area] mL/min/{1.73_m2} Normal >60 [facility] Comment on above: Result Comment: [facility]'s estimated glomerular filtration rate (eGFR) will [...] of individuals. Performed By: #### 3 5515, 06280, 09718 #### [facility] [address] [place] [address], [place] Glucose [Mass/Vol] 88 mg/dL Normal 70-100 [facility] Comment on above: Performed By: #### 3 5515, 97183, 91589 #### [facility] [address] [place] [address], [place] Potassium [Moles/Vol] 4.5 mmol/L Normal 3.5-5.1 [facility] Comment on above: Performed By: #### 3 5515, 61848, 17345 #### [facility] [address] [place] [address], [place] Protein [Mass/Vol] 6.8 g/dL Normal 6.0-8.3 [facility] Comment on above: Performed By: #### 3 5515, 24480, 28915 #### [facility] [address] [place] [address], [place] Sodium [Moles/Vol] 138 mmol/L Normal 136-145 [facility] Comment on above: Performed By: #### 3 5515, 35457, 98776 #### [facility] [address] [place] [address], [place] Urea nitrogen [Mass/Vol] 29 mg/dL High 7-25 [facility] Comment on above: Performed By: #### 3 5515, 22121, 08726 #### [facility] [address] [place] [address], [place] CYCLIC CITRULLINATED PEPTIDE [place] [id number] 04-20-2022 CYCLIC CIT PEP 2 Units Normal 0-19 [facility] Comment on above: Result Comment: [...] be monitored and testing repeated. Performed By: [employer] [address] [place] [id number] Poiser: Brett Tamez MD, PhD FERRITINon 04-20-2022 Ferritin [Mass/Vol] 43 ng/mL Normal 11-307 [facility] Comment on above: Performed By: #### 3 5515, 88229, 60688 #### [address] HAND LEFT 3 VWSon 04-20-2022 HAND LEFT 3 VWS [facility] Department of Radiology [address] [place] [phone] ===== Patient Name: LOBO MURDOCK : 1945 Sex: F Age: Race: White Pt. Location: [facility] Patient Status: O Ordered Date: 04/20/2022 10:50:00 AM Completed Date: 04/20/2022 11:42 AM Requesting Provider: MICHAEL HAHN Attending Provider: ARIADNA NOLAN Report Copy To: Signs & Symptoms: M79.641 Pain in right hand I10 History: [place] Comments: Evaluate Exam: HAND LEFT 3 VWS [...] report. Electronically signed: Chelita Lazcano. Transcribed by: [email or web address], User Resident: NIRMALA MONGE Electronically Signed by: CHELITA LAZCANO @ 04/20/2022 01:29 PM I personally read this/these film(s) with this resident Normal [facility] Comment on above: Order Comment: Evalu ate HAND RIGHT 3 VWSon 2 HAND RIGHT 3 S [facility] Department of Radiology [address] [place] [phone] ===== Patient Name: LOBO MURDOCK : 1945 Sex: F Age: Race: White Pt. Location: [facility] Patient Status: O Ordered Date: 04/20/2022 10:50:00 [...] report. Electronically signed: Chelita Lazcano. Transcribed by: [email or web address], User Resident: NIRMALA MONGE Electronically Signed by: CHELITA LAZCANO @ 04/20/2022 01:43 PM I personally read this/these film(s) with this resident Normal [facility] Comment on above: Order Comment: Evalu ate RHEUMATOID FACTOR SERUMon RA <20 Normal 0-20 [facility] Comment on above: Performed By: #### 6 1405, 07620 #### [facility] [address] [place] [address], [facility] SEDIMENTATION RATEon 022 SED RATE 38 mm/hr High 0-20 [facility] Comment on above: Performed By: #### 5 6506, 14279 ####[facility] [place] [address], [facility] TIBC- INCLUDES IRONon 2021 FE SATURATION 30 % Normal 20-50 [facility] Comment on above: Performed By: #### 3 5515, 82807, 80243 #### [facility] [address] [place] [address], [facility] Iron [Mass/Vol] 115 ug/dL Normal 50-212 [facility] Comment on above: Performed By: #### 3 5515, 73886, 41269 #### [facility] [address] [place] [address], [facility] TIBC 378 mcg/dL Normal 250-450 [facility] Comment on above: Performed By: #### 3 5515, 87522, 17398 #### [facility] [address] [place] [address], [facility] UIBC 263 mcg/dL Normal 155-355 [facility] Comment on above: Performed By: #### 3 5515, 27005, 07299 #### [facility] [address] [place] [address], [facility] CALCIUMon 04-09-2022 Calcium [Mass/Vol] 9.6 mg/dL Normal 8.5-10.1 [facility] Comment on above: Performed By: #### VALERIO MADRIGAL #### [facility] [address] [place], [place] [address] Dr. Dang Grimm CREATININEon 04-09-2022 Creatinine [Mass/Vol] 1.07 mg/dL Critically high 0.55-1.02 [facility] Comment on above: Performed By: #### VALERIO MADRIGAL #### [facility] [address] [place], [place] [address] Dr. Dang Grimm EGFR-AF MONTENEGRIN >60 Normal >=60 [facility] Comment on above: Performed By: #### Bhumika [place], [place] #### [facility] [address] [place], [place] [address] Dr. Dang Grimm EGFR-NON AF MONTENEGRIN 50 mL/min/1.73m2 Critically low >=60 [facility] Comment on above: Performed By: #### Bhumika ADAMS [place] #### [facility] [address] [place], [place] [address] Dr. Dang Grimm Vital Signs Date Time Vital Sign Value Performing Clinician Facility 03-20-2024 09:15-0400 Diastolic blood pressure 62 mm[Hg] MD Patricia Stanford Work Phone: [facility] 03-20-2024 09:15-0400 Heart rate 72 /min MD Patricia Stanford Work Phone: [facility] 03-20-2024 09:15-0400 Respiratory rate 20 /min MD Patricia Stanford Work Phone: [facility] 03-20-2024 09:15-0400 SaO2% (BldA) [Mass fraction] 99 % MD Patricia Stanford Work Phone: [facility] 03-20-2024 09:15-0400 Systolic blood pressure 115 mm[Hg] MD Patricia Stanford Work Phone: [facility] 03-20-2024 07:18-0400 Body height 156.84 cm MD Patricia Stanford Work Phone: [facility] 03-20-2024 07:18-0400 Body weight 55.33 kg MD Patricia Stanford Work Phone: [facility] 03-16-2024 09:04-0400 Body height 156.84 cm MD Patricia Stanford Work Phone: [facility] 03-16-2024 09:04-0400 Body mass index (BMI) [Ratio] 22.8 kg/m2 MD Patricia Stanford Work Phone: [facility] 03-16-2024 09:04-0400 Body weight 56.24 kg MD Patricia Stanford Work Phone: [facility] 03-16-2024 09:04-0400 Diastolic blood pressure 72 mm[Hg] MD Patricia Stanford Work Phone: [facility] 03-16-2024 09:04-0400 Heart rate 81 /min MD Patricia Stanford Work Phone: [facility] 03-16-2024 09:04-0400 Systolic blood pressure 122 mm[Hg] MD Patricia Stanford Work Phone: [facility] 10-02-2023 09:55-0500 Diastolic blood pressure 67 mm[Hg] MD Patricia Stanford Work Phone: [facility] 10-02-2023 09:55-0500 Heart rate 80 /min MD Patricia Stanford Work Phone: [facility] 10-02-2023 09:55-0500 Respiratory rate 16 /min MD Patricia Stanford Work Phone: [facility] 10-02-2023 09:55-0500 SaO2% (BldA) [Mass fraction] 99 % MD Patricia Stanford Work Phone: [facility] 10-02-2023 09:55-0500 Systolic blood pressure 108 mm[Hg] MD Patricia Stanford Work Phone: [facility] 10-02-2023 07:07-0500 Body height 160.02 cm MD Patricia Stanford Work Phone: [facility] 10-02-2023 07:07-0500 Body weight 56.69 kg MD Patricia Stanford Work Phone: [facility] 08-30-2023 10:30-0500 Body height 157.48 cm Patricia Stanford Other [facility] 08-30-2023 10:30-0500 Body mass index (BMI) [Ratio] 21.73 kg/m2 Patricia Stanford Other [facility] [employer] Other 08-30-2023 10:30-0500 Body weight 53.89 kg Patricia Stanford Other [facility] [employer] Other 08-30-2023 10:30-0500 Body weight 53.88 kg MD Patricia Stanford Work Phone: [facility] 08-30-2023 10:30-0500 Diastolic blood pressure 74 mm[Hg] Patricia Stanford Other [facility] 08-30-2023 10:30-0500 Systolic blood pressure 122 mm[Hg] Patricia Stanford Other [facility] 08-21-2023 13:45-0500 Body height 157.48 cm Imad Asaad Other [facility] 08-21-2023 13:45-0500 Body mass index (BMI) [Ratio] 21.58 kg/m2 Imad Asaad Other [facility] [employer] Other 08-21-2023 13:45-0500 Body weight 53.52 kg Imad Asaad Other [facility] 07-15-2023 11:30-0500 Body height 157.48 cm Patricia Stanford Other [facility] 07-15-2023 11:30-0500 Body mass index (BMI) [Ratio] 21.73 kg/m2 Patricia Stanford Other [facility] [employer] Other 07-15-2023 11:30-0500 Body weight 53.89 kg Patricia Stanford Other [facility] [employer] Other 07-15-2023 11:30-0500 Body weight 53.88 kg MD Patricia Stanford Work Phone: [facility] 07-15-2023 11:30-0500 Diastolic blood pressure 78 mm[Hg] Patricia Stanford Other [facility] 07-15-2023 11:30-0500 Systolic blood pressure 148 mm[Hg] Patricia Stanford Other [facility] 07-06-2023 09:20-0500 Body height 157.48 cm MD Patricia Stanford Work Phone: [facility] 07-06-2023 09:20-0500 Body weight 55.51 kg MD Patricia Stanford Work Phone: [facility] Encounters Encounter Date Encounter Type Care Provider Facility Start: 03-20-2024 Non-patient / Non-visit MD Marlys Stanford Work Phone: [facility] G[facility] Work Phone: Start: 03-20-2024 End: 03-20-2024 Admission to same day surgery center MD Patricia Stanford Work Phone: [facility] Work Phone: Start: 03-20-2024 End: 03-20-2024 ambulatory MD Patricia Stanford Work Phone: [facility] Work Phone: Start: 03-18-2024 End: 03-18-2024 ambulatory CARI B APLING Not Available Start: 03-17-2024 Preoperative state MD Patricia bliss Work Phone: [facility] Start: 03-16-2024 End: 03-16-2024 ambulatory CARI B APLING Not Available Start: 03-16-2024 End: 03-16-2024 Patient encounter procedure MD Patricia Stanford Work Phone: [facility] [facility] Work Phone: Start: 10-14-2023 End: 10-15-2023 ambulatory Ara Maier MD Facility: [facility] Start: 10-04-2023 End: 10-04-2023 ambulatory Imad Asaad Other [employer] Other Start: 10-04-2023 Telephone encounter Imad Asaad [facility] Start: 10-02-2023 Non-patient / Non-visit MD Marlys Stanford Work Phone: [facility] Gastroenterology Work Phone: Start: 10-02-2023 End: 10-02-2023 Admission to same day surgery center MD Patricia Stanford Work Phone: [facility] Work Phone: Start: 10-02-2023 End: 10-02-2023 ambulatory MD Patricia Stanford Work Phone: [facility] Work Phone: Start: 09-23-2023 End: 09-23-2023 ambulatory Patricia Stanford Other [employer] Other Start: 09-23-2023 Telephone encounter Patricia Stanford [facility] Start: 09-09-2023 End: 09-09-2023 ambulatory CARI B APLING Not Available Start: 09-04-2023 End: 09-04-2023 ambulatory CARI B APLING Not Available Start: 09-03-2023 End: 09-03-2023 ambulatory Patricia Stanford Other [employer] Other Start: 09-03-2023 Telephone encounter Patricia Stanford [facility] [employer] Start: 08-30-2023 End: 08-30-2023 ambulatory Patricia Stanford Other [employer] Other Start: 08-30-2023 Office outpatient vi sit 15 minutes Patricia Stanford [facility] Start: 08-30-2023 End: 08-30-2023 Patient encounter procedure MD Patricia Stanford Work Phone: [facility]- Start: 08-23-2023 End: 08-23-2023 ambulatory Patricia Stanford Other [employer] Other Start: 08-23-2023 Telephone encounter Patricia Stanford [facility] Start: 08-21-2023 End: 08-21-2023 ambulatory Imad Asaad Other [employer] Other Start: 08-21-2023 Office outpatient ne w 45 minutes Imad Asaad [facility] Start: 08-21-2023 End: 08-21-2023 Patient encounter procedure MD Patricia Stanford Work Phone: [facility] Gastroenterology Work Phone: Start: 07-15-2023 End: 07-15-2023 ambulatory Patricia Stanford Other [employer] Other Start: 07-15-2023 Office outpatient vi sit 15 minutes Patricia Stanford [facility] Start: 07-15-2023 Telephone encounter Patricia Stanford [facility] Start: 07-15-2023 End: 07-15-2023 Patient encounter procedure MD Patricia Stanford Work Phone: [facility] Work Phone: Start: 07-06-2023 End: 07-06-2023 Patient encounter procedure MD Patricia Stanford Work Phone: [facility] Luis Alfredo Work Phone: Start: 05-06-2023 End: 05-07-2023 ambulatory Ara Maier MD Facility:[facility] Start: 04-22-2023 End: 04-23-2023 ambulatory Ara Maier MD Facility:[facility] Start: 10-03-2022 End: 10-05-[address] PATRICIA STANFORD Facility:[facility] Start: 09-27-2022 End: 09-28-[address] MASSIMO MATTHEWS . Facility:[facility] Start: 09-11-2022 End: 09-11-[address] MASSIMO MATTHEWS . Facility:[facility] Start: 09-07-2022 End: 10-17-[address] MASSIMO MATTHEWS . Facility:[facility] Start: 09-04-2022 End: 09-05-[address] MASSIMO MATTHEWS . Facility:[facility] Start: 07-26-2022 Encounter for preprocedural laboratory examination DR MASSIMO MATTHEWS . [facility] Start: 07-24-2022 End: 07-24-[address] [...] 10-25-2020 Pre-procedure evaluation check Patricia Stanford Other [employer] Other Procedures Date Procedure Procedure Detail Performing Clinician Start: 03-20-2024 Colonoscopy MD Patricia Stanford Work Phone: Start: 10-02-2023 Esophagogastroduodenoscopy MD Patricia fox Work Phone: Start: 07-10-2017 Screening mammography Patricia Stanford Other Start: 07-19-2016 General examination of patient Patricia padilla Other Plan of Treatment Date Care Activity Detail Author Start: 03-20-[address] [facility] Start: 10-02-[address] [facility] Patient Education Hemorrhoids (D C) Know your Meds [facility] Work Phone: Immunizations Immunization Date Immunization Notes Care Provider Fa cility 05-17-2022 zoster vaccine, live Patricia Stanford Other [facility] 04-23-2022 influenza virus vaccine, split virus (incl. purified surface antigen) Patricia Stanford Other [facility] [employer] Other 04-23-2022 influenza virus vaccine, unspecified formulation MD Patricia Stanford Work Phone: [facility] 04-23-2022 pneumococcal polysaccharide vaccine, 23 valent Patricia Stanford Other [facility] 04-23-2022 tetanus toxoid, adsorbed Patricia Stanford Other [facility] 05-25-2021 influenza virus vaccine, split virus (incl. purified surface antigen) Patricia Stanford Other [email or web address] [employer] Other 05-25-2021 influenza virus vaccine, unspecified formulation MD Patricia Stanford Work Phone: [facility] 10-18-2020 COVID-19 Vaccine Moderna - Documentation Purposes Only Patricia Stanford Other [facility] 09-19-2020 COVID-19 Vaccine Moderna - Documentation Purposes Only Patricia Stanford Other [facility] 04-16-2020 influenza virus vaccine, split virus (incl. purified surface antigen) Patricia Stanford Other [facility] [employer] Other 04-16-2020 influenza virus vaccine, unspecified formulation MD Patricia Stanford Work Phone: [facility] 05-12-2019 influenza virus vaccine, split virus (incl. purified surface antigen) Patricia Stanford Other [facility] [employer] Other 05-12-2019 influenza virus vaccine, unspecified formulation MD Patricia Stanford Work Phone: [facility] 04-18-2018 influenza virus vaccine, split virus (incl. purified surface antigen) Patricia Stanford Other [facility] [employer] Other 04-18-2018 influenza virus vaccine, unspecified formulation MD Patricia Stanford Work Phone: [facility] 07-10-2017 pneumococcal conjuga te vaccine, 13 valent Patricia Stanford Other [facility] 04-18-2017 influenza virus vaccine, split virus (incl. purified surface antigen) Patricia Stanford Other [facility] [employer] Other 04-18-2017 influenza virus vaccine, unspecified formulation MD Patricia Stanford Work Phone: [facility] 05-09-2016 influenza virus vaccine, split virus (incl. purified surface antigen) Patricia Stanford Other [facility] [employer] Other 05-09-2016 influenza virus vaccine, unspecified formulation MD Patricia Stanford Work Phone: [facility] 05-27-2013 tetanus and diphther ia toxoids, adsorbed, preservative free, for adult use (5 Lf of tetanus toxoid and 2 Lf of diphtheria toxoid) Patricia Stanford Other [facility] 12-24-2011 pneumococcal polysaccharide vaccine, 23 valent Patricia Stanford Other [facility] Payers Date Payer Category Payer Self-pay 2022 Medicare 2022 Unknown 1959 Medicare [id number] 1959 Unknown [id number] 1945 Unknown [id number] 2.16.8 40.1.275288.3.579.2.647 1945 Unknown [id number] 2.16.8 40.1.922860.3.579.2.647 1945 Unknown [id number] 2.16.84 0.1.342989.3.579.2.593 1945 Unknown [id number] 2.16.84 0.1.732062.3.579.2.593 1945 Unknown [id number] 2.16.84 0.1.574504.3.579.2.593 1945 Unknown [id number] 2.16.84 0.1.596011.3.579.2.593 1946 Unknown [id number] 2.16.84 0.1.094443.3.579.2.593 1945 Unknown [id number] 2.16.84 0.1.608108.3.579.2.593 1946 Unknown [id number] 2.16.84 0.1.959448.3.579.2.593 1946 Unknown [id number] 2.16.84 0.1.443324.3.579.2.593 1945 Unknown [id number] 2.16.84 0.1.913769.3.579.2.593 1946 Unknown [id number] 2.16.84 0.1.472957.3.579.2.593 1946 Unknown [id number] 2.16.84 0.1.457719.3.579.2.593 1946 Unknown [id number] 2.16.84 0.1.930558.3.579.2.593 1946 Unknown [id number] 2.16.84 0.1.174573.3.579.2.593 1946 Unknown [id number] 2.16.84 0.1.529639.3.579.2.593 1946 Unknown [id number] 2.16. 840.1.971471.3.579.2.196 1945 Unknown [id number] 2.16. 840.1.739188.3.579.2.196 1945 Unknown [id number] 2.16. 840.1.222260.3.579.2.196 1946 Unknown [id number] 2.16.84 0.1.141803.3.579.2.1259 1945 Unknown [id number] 2.16.84 0.1.464673.3.579.2.1259 1945 Unknown [id number] 2.16.84 0.1.701465.3.579.2.1259 1945 Unknown [id number] 2.16.84 0.1.165016.3.579.2.1259 Medicare Medicare Outpatient [id number] [id number] Unknown [id number] 2.16.8 40.1.263137.3.579.2.531 Social History Date Type Detail Facility Unknown if ever smoked [facility] Other Sex Assigned At Sex Assigned At Bir th [employer] Other Start: 10-02-2023 End: 03-20-2024 Tobacco smoking status NHIS Never smoked tobacco (finding) [facility] Start: 1945 Sex Assigned At Female F [facility] Goals Date Patient Goal Desired Activity /State Clinical Notes 11-30-2021 to 03-20-2024 Note Date & Type Note Facility 03-20-2024 Procedure note [facility] 10-02-2023 Procedure note [facility] 08-30-2023 Evaluation note Encounter Date Diagnosis [...] try OTC ones in meantime. Referral placed. [facility] Other 01-10-2024 Evaluation note* Encounter Date Diagnosis Assessment Notes Treatment Notes Treatment Clinical Notes Aug, GERD (gastroesophageal reflux disease) (ICD-10 - K21.9) Aug, Chronic diarrhea (ICD-10 - K52.9) Patient reports that her last colonoscopy was at the [facility] about 11 years ago and that she can not remember who preformed the procedure Aug, Abdominal pain (ICD-10 - R10.9) Aug, Weight loss, unintentional (ICD-10 - R63.4) Aug, Change in bowel habits (ICD-10 - R19.4) Patinet is advised to have a colonoscopy ordered, scheduled and prep instructions given today Risks and benefits of procedure explained to patient; patient verbalizes understanding. [facility] Other 12-04-2023 Evaluation note* Encounter Date Diagnosis [...] (ICD-10 - M81.0) Due for Dexa 08/2023 [employer] Other 02-16-2023 NoteCONSULTATION CONSULTATION DATE: 09/27/2022 HISTORY OF PRESENT ILLNESS: This is a 76-year-old female who returns to the clinic status post LES on 09/11/2022. The patient states she was afforded between 50-60% relief. Depending on her physical activity, determines her level of comfort. 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, housework and lifting greatly aggravate her [...] Patient is in agreement with this plan.[id number] NoteCONSULTATION CONSULTATION DATE: 09/04/2022 HISTORY OF PRESENT [...] patient understands and would like to proceed.[id number] NoteCONSULTATION CONSULTATION DATE: 07/11/2022 HISTORY OF PRESENT [...] followed up in the clinic post procedure.[id number] NoteCONSULTATION PROCEDURE DATE: 07/11/2022 PREOPERATIVE DIAGNOSIS: Bilateral [...] will be followed up in the clinic.[facility] 06-06-2022 NoteCONSULTATION CONSULTATION DATE: 06/06/2022 HISTORY [...] pain returning. 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 The patient has not seen a pharmacology teacher in the past. REVIEW OF SYSTEMS, [...] mg q.h.s. A referral to rheumatology near [place] will be sent on her behalf and I highly encouraged her to seek consultation, particularly since she has a familial history of autoimmune diseases. The patient agrees with the plan of care and will be followed up in the office in three months' time. [facility] Signed and Approved by: MICHELE SALDAÑA . 03/02/2022 14:16:00[facility]04-21-2022 NoteCONSULTATION Consultation Date:11/30/2021 PREOPERATIVE DIAGNOSIS: Right gluteal [...] will be followed up in the office. [facility] Signed and Approved by: MICHELE SALDAÑA . 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 Lying down and using heat decrease her pain. Prior to the procedure, she was in a state of acute pain and was placed on a short term course of [place] 5/325 b.i.d. p.r.n. Patient states she only [...] and would like to proceed. [facility] Signed and Approved by: MICHELE SALDAÑA . 12/06/2021 16:15:00[facility] noteNo InformationNort [employer] Other Evaluation noteNo assessment information available [facility] Work Phone: Evaluation note* Diagnosis Onset Date Resolution Status Lumbar spondylosis acute Preoperative clearance acute Situational depression acute [facility] Work Phone: History and physical note Author Sunny Torres [facility] October 02, 2023 8:54am Note Date/Time October 02, 2023 8:54am [facility] [address] [place] [address] Gastroenterology H&P Signed Patient: Lobo Murdock MR#: [id number] : 1945 Acct:[id number] Age/Sex: 78 / F Adm Date: 4 Loc: Room: Type: [facility] Attending Dr: Sunny Torres MD Copies [...] signed by Sunny Torres MD> 10/02/23 0854 [facility] Work Phone: History and physical note Author Sunny Torres [facility] March 20, 2024 8:43am Note Date/Time March 20, 2024 8:4 3am [facility] [address] [place] [address] Gastroenterology H&P Signed Patient: Lobo Murdock MR#: [id number] : 1945 Acct:[id number] Age/Sex: 78 / F Adm Date: 4 Loc: Room: Type: [facility] Attending Dr: Sunny Torres MD Copies [...] <Electronically signed by Sunny Torres MD> 03/20/24842 [facility] Work Phone: History general Narrative - Reported* [...] shoulder pain 1982 Hospitalization History migraines 1992 [facility] Other Hospital Discharge instructions Additional Instructions DISCHARGE [...] up in the office - Office number [phone]. [facility] Work Phone: Summary Purpose Family History [...] 1 Chronic diarrhea (K5 2.9) Referral Organization [facility]SPIN [facility] pipo Referring Provider First Name Patricia Referring Provider Last Name Abdoulaye Referring Provider [facility] amprice Referred Organization [facility] Gastroenterolo gy Referred Address [address],[address] Referred Provider Specialty Gastroentero logy Referral Priority Routine Reason *FU 09/06 R foot p ain Diagnosis 1 Pain of left great t oe (M79.675) Referral Organization [facility] pipo Referring Provider First Name Patricia Referring Provider Last Name Abdoulaye Referring Provider Specialty [facility] amprice Referred Organization [facility] Referred Provider Odin Chong Referred Address [address] [place], [place],[address] Referred Provider Specialty Podiatry - S urgical [...] content) DATE CREATED AUTHOR 05/09/2022 [facility] DATE CREATED AUTHOR AUTHOR'S ORGANIZ ATION [facility]20[facility] DATE CREATED AUTHOR AUTHOR'S ORGANIZ ATION 10/18/2023 [facility] DATE CREATED AUTHOR AUTHOR'S ORGANIZ ATION 03/20/2024 [facility] EPIC DATE CREATED AUTHOR AUTHOR'S ORGANIZ ATION 04/01/2024 [facility] REASON FOR VISIT (unrecogniz ed [...] BE BASED ON THE PRIMARY CLINICAL RECORDS. [facility] [employer] provides no warranty or guarantee of the accuracy or completeness of information in this document.
--- NOTE | 2024-04-01 14:59 | CM.DCFOLLOWU ---
Person spoke with:patient How are you feeling? well, had a good nights sleep last night so better How is your pain? better Did you understand your discharge instructions? yes Do you have any questions about your discharge instructions? no Were you given any prescriptions at discharge? yes Were you able to get your prescriptions filled? yes Do you understand how to take your medications as ordered? yes Do you have any questions about your follow up appointment and do you plan to keep your follow up appointment? no and follow up reviewed Is there anything else that you would like to discuss? no Questions/Comments/Concerns/Other: none
== END 2024-03-29 12:40 | disposition home health service (06) ==
LOC: MS 15:04 → SURGOUT 04-01 10:47
PROVIDERS: Admitting Provider Family Medicine; PCP Family Medicine; Visit Provider Orthopaedic Surgery Orthopaedic Surgery of the Spine
PROC: (CPT 20936; principal; 2024-03-27 07:30)
DX: M51.17 Intervertebral disc disorders with radiculopathy, lumbosacral region (principal); M43.16 Spondylolisthesis, lumbar region; M48.07 Spinal stenosis, lumbosacral region; K21.9 Gastro-esophageal reflux disease without esophagitis; M81.0 Age-related osteoporosis without current pathological fracture; Z79.899 Other long term (current) drug therapy; I95.9 Hypotension, unspecified; R09.02 Hypoxemia; N17.9 Acute kidney failure, unspecified; R12 Heartburn; D62 Acute posthemorrhagic anemia
CPT/HCPCS: 20936; 22612; 22614; 22842; 63047; 63048 ×2; 36415; 76000; 80048; 85014; 85018; 94667; 94668; 95861; 95938; 95940; 96361; 96365; 96375; 96376; 97162; 97165; 97530; C1713; G0378; J0131; J0690; J1100; J1170; J1885; J2250; J2270; J2405; J2704; J3010; J3370

== ENCOUNTER 2024-05-01 10:38 | Outpatient (OUT) | payer MEDICARE, SELFPAY ==
--- NOTE | 2024-05-01 | XR_ITS ---
The [address] [address] Patient Name: LOBO MURDOCK MRN: [id number] date: 1945 Sex: F Assigned Patient Location: Current Patient Location: Accession/Order Number: [id number] Exam Date: 05/01/2024 10:40 Report Date: 05/04/2024 14:12 At the request of: VERONICA CARCAMO Procedure: XR lumbar spine 2-3V EXAMINATION: XR lumbar spine 2-3V HISTORY: LUMBAR SPINE PAIN COMPARISON: No relevant comparison available. FINDINGS: BONES: Dextrocurvature centered at L3-L4. Posterior decompression and transpedicular fusion L4-L5. 5 mm anterolisthesis of L4. Anterior wedge compression fracture of L3, age indeterminate. DISC SPACES: Disc collapse with endplate sclerosis L4-5 and L5-S1 PARASPINOUS: Negative. No paraspinous abnormality is seen. OTHER: Negative. XR/XR lumbar spine 2-3V IMPRESSION: Lumbar fusion with no mechanical failure Electronically authenticated by: LEIF SALAZAR Date: 05/04/2024 14:12
--- OUTSIDE RECORDS SUMMARY | 2024-05-01 10:53 | XMS_ITS | CCD ---
Author Organization [facility] CliniSyct Care Team Providers Care Drafter Castings Name Role Phone PHYSICIAN, DEFAULT Admitting Unavailable [...] ., MICHELE Consulting Unavailable ABDOULAYE, DR PATRICIA Carin Primary Care Unavailable SALDAÑA ., MICHELE Attending [...] MATTHEWS ., DR MASSIMO Cook Attending Unavailable STANFORD, [...] MATTHEWS ., DR MASSIMO Cook Attending Unavailable STANFORD, DR PATRICIA Crain Primary Care Unavailable MATTHEWS ., DR MASSIMO Cook Consulting Unavailable Patricia Stanford Unavailable Asaad, Imad Unavailable MD Patricia Stanford Primary Care Provider MD Melissa Imravindra Attending Provider Darrion DIAZ, Ara Loomis Attending Unavailable Darrion DIAZ, Andri Vcuate Attending Unavailable Darrion DIAZ, Ara Loomis Attending Unavailable MD Patricia Stanford Primary Care Provider [phone] MD Melissa Imravindra Attending Provider Patricia Stanford Primary Care Unavailable Asaad, Imad Admitting Unavailable Asaad, Imad Attending Unavailable Patricia Stanford Primary Care Unavailable Asaad, Imad Admitting Unavailable Asaad, Imad Attending Unavailable APLING, CARI Keith Attending Unavailable APLING, CARI Keith Attending Unavailable APLING, CARI Keith Attending Unavailable APLING, CARI Keith Attending Unavailable APLING, CARI Keith Attending Unavailable APLING, CARI Keith Referring Unavailable APLINGCARI Attending Unavailable Allergies Allergy Classification Reported Allergen(s) Allergy Type Date of Onset Reaction(s) Facility (8 sources) Calcitonin ([place]) *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 Propensity to adverse reactions Comment:severe weakness [facility] Other (2 sources) calcitonin; Translations: [calcitonin] Propensity to adverse reactions 4 Joint [facility] Medications Current Medications Medication Drug Class(es) Dates [...] Active Subcutaneous for 0 *Pick strength-form from [employer] for eRX* 02 Aug, 2019 Active diclofenac sodium 50 mg delayed release [...] day for 0 days *Pick strength-form from [employer] for eRX* Oct, Active magnesium oxide 400 mg oral tablet (1 source) Start: 03-13-2024 take 1 tablet by mouth once daily Magnesium Oxide Active 400 MG PO Daily March 13, 2024 12:00am [employer] tablet with a meal Orally Once a day; Note: Source Status: Taking*Pick strength-form from [employer] for eRX*; Provider: Abdoulaye Gomez ( ) Multiple Vitamin (8 sources) take 1 tablet by mouth once daily Multiple Vitamin 1 tablet Orally Once a day Active Ponwbjzf-Misf-Yf-Junaid cium-Mins (Daily Multiple For Women) 18 mg iron-400 mcg-500 mg Ca tablet (1 source) Start: 03-13-2024 take 1 tablet by mouth once daily Glomridw-Mvrd-Hz-C alcium-Mins (Daily Multiple For Women) 18 mg [...] Other aftercare (8 sources) 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; Translations: [long-term (current) use of bisphosphonates] Episodic Other connective [...] Pathology Request for Lab Dorothy Normal [facility] Comment on above: Order Comment: PATHO LOGY GI SPECIMEN Result Comment: See report. Scanned copy available in EMR. PERFORMED BY: [place] [address] PATHOLOGIST PIPING BLOCKER HELENE LEON M.D. Performed By: #### P ATH TO [facility] #### [address] 10-02-2023 L Specimen: [id number] Received: 10/02/23 Status: SOUT Req Num: [id number] Spec Type: Surgical Subm Dr: Sunny Torres MD Tissues: A GASTRIC FOR HP (GASTRIC BX R/O H.PYLORI) B Colon Biopsy (RANDOM COLON BX R/O MICROSCO) Procedures: HE/4, Gross/Micro L4/2, H PYLORI Age/ Patient Sex Location Account Attending Physician Lobo Murdock 78/F [id number] Sunny Torres MD SPEC NUM: [id number] RECD: 10/02/23 STATUS: OJ BRICE NUM: [id number] TEO: 10/02/[address]: Sunny Torres MD ENTERED: 10/02/23 [facility] DR: SPEC TYPE: Surgical DEPT: [...] name, date of and random colon Specimen: [id number] Received: 10/02/23 Status: OJ Brice Num: [id number] Spec Type: Surgical Subm Dr: Snuny Torres MD Tissues: A GASTRIC FOR HP (GASTRIC BX R/O H.PYLORI) B Colon Biopsy (RANDOM COLON BX R/O MICROSCO) Procedures: HE/4, Gross/Micro L4/2, H PYLORI Patient: Lobo Murdock [id number] (Continued) Specimen: [id number] Received: 10/02/23 (Continued) Gross Description (Continued) Signed (signature on file) Patito Grimm MD 10/03/23 1430 Specimen: [id number] Received: 10/02/23 Status: OJ Brice Num: [id number] Spec Type: Surgical Subm Dr: Sunny Torres MD Tissues: A GASTRIC FOR HP (GASTRIC BX R/O H.PYLORI) B Colon Biopsy (RANDOM COLON BX R/O MICROSCO) Procedures: HE/4, Gross/Micro L4/2, H PYLORI Patient: Lobo Murdock [id number] (Continued) Specimen: [id number] Received: 10/02/23 (Continued) Gross Description (Continued) biopsy are 2 galvan translucent soft tissue fragments, 0.3 and 0.6 cm in greatest dimensions. Entirely submitted in one cassette labeled B1. CPT Codes [id number] Specimen: [id number] Received: 10/02/23 Status: OJ Brice Num: [id number] Spec Type: Surgical Subm Dr: Sunny Torres MD Tissues: A GASTRIC FOR HP (GASTRIC BX R/O H.PYLORI) B Colon Biopsy (RANDOM COLON BX R/O MICROSCO) Procedures: HE/4, Gross/Micro L4/2, H PYLORI Patient: Lobo Murdock [id number] (Continued) Signed (signature on file) Patito Grimm MD 10/03/23 1430 Normal [facility] CALCIUMon 10-03-2022 Calcium [Mass/Vol] 8.9 mg/dL Normal 8.5-10.1 [facility] Comment on above: Performed By: #### [place], [place] #### [facility] [address] [address] [address] Dang Grimm CREATININEon 10-03-2022 Creatinine [Mass/Vol] 1.03 mg/dL Critically high 0.55-1.02 [facility] Comment on above: Performed By: #### [place], [place] #### [facility] [address] [address] [address] Dang Grimm EGFR-AF GHANAIAN >60 Normal >=60 [facility] Comment on above: Performed By: #### [place], [place] #### [facility] [address] [place] [address] Dr. Dang Grimm EGFR-NON AF GHANAIAN 52 mL/min/1.73m2 Critically low >=60 [facility] Comment on above: Performed By: #### [place], [place] #### [facility] [address] [place] [address] Dr. Dang Grimm Covid-19 PCR (CVDTB)on SARS-CoV-2 (COVID-19) RNA GENARO+probe Ql (Unsp spec) Not detected Normal NOT DETECTED [facility] Comment on above: Result Comment: This test is not yet approved or cleared by the [place] FDA. When there are no FDA-approved or cleared tests available, and other criteria are met, FDA can make tests available under an emergency access mechanism called an Emergency Use Authorization (EUA). The EUA for this test is supported by the Manager Floor of Health and Human Service's (HHS's) declaration [...] SARS-CoV-2. Performed By: #### C VDTBH #### [facility] [address] [address] [address] Dang Grimm ANAon 04-20-2022 OCTAVIA PATTERN SPECKLED Normal The [facility] Comment on above: Result Comment: The [...] authority. Performed By: #### 1 0196 #### [facility] [address] OCTAVIA SCREEN 1:40 Normal <1:40,1:40 The [facility] Comment on above: Result Comment: Test performed using MELCH[employer] IFA OCTAVIA Hep-2 Test, a pre-standardized assay designed for the qualitative and semi-quantitative detection of antinuclear antibodies. Performed By: #### 1 0196 #### [facility] [address] C REACTIVE PROTEINon 022 CRP [Mass/Vol] 2.5 mg/L Normal 0.0-7.0 The [facility] Comment on above: Performed By: #### 6 1405, 97088 #### [facility] [address] CBC COMPLETE BLOOD COUNTon 0 04-20-2022 Erythrocyte distribution width (RBC) [Ratio] 12.4 % Normal 11.5-15.0 [facility] Comment on above: Performed By: #### 5 6506, 33398 #### [facility] [address] Hematocrit (Bld) [Volume fraction] 41.6 % Normal 36.0-45.0 [facility] Comment on above: Performed By: #### 5 6506, 78620 #### [facility] [address] [place] [id number], [facility] Hemoglobin (Bld) [Mass/Vol] 13.7 g/dL Normal 12.0-15.0 The [facility] Comment on above: Performed By: #### 5 650, 06436 #### [facility] [address] [place] [id number], [facility] MCH (RBC) [Entitic mass] 31.4 pg Normal 27.0-33.0 [facility] Comment on above: Performed By: #### 5 650, 36757 #### [facility] [address] [place] [address], [facility] MCHC (RBC) [Mass/Vol] 32.9 g/dL Normal 32.0-35.0 The [facility] Comment on above: Performed By: #### 5 650, 26452 #### [facility] [address] [place] [address], [facility] MCV (RBC) [Entitic vol] 95.2 fL Normal 82.0-98.0 [facility] Comment on above: Performed By: #### 5 6506, 36234 #### [facility] [address] [place] [address], [facility] Nucleated RBC/100 WBC (Bld) [Ratio] 0 % Normal 0-0 The [facility] Comment on above: Performed By: #### 5 650, 30782 #### [facility] [address] [place] [id number], [facility] PLAT CNT 248 10*3/uL Normal 150-400 The [facility] Comment on above: Performed By: #### 5 650, 28564 #### [facility] [address] [place] [address], [facility] RBC (Bld) [#/Vol] 4.37 10*6/uL Normal 3.80-5.00 The [facility] Comment on above: Performed By: #### 5 6506, 35552 #### [address] WBC (Bld) [#/Vol] 5.54 10*3/uL Normal 4.00-10.60 The [facility] Comment on above: Performed By: #### 5 6506, 18941 #### [address] CERVICAL SPINE 4 OR 5 VIEWSo 04-20-2022 CERVICAL SPINE 4 OR 5 VIEWS [facility] Department of Radiology [address] [place] [phone] ===== Patient Name: LOBO MURDOCK : 1945 Sex: F Age: Race: White Pt. Location: [facility] Patient Status: O Ordered Date: 04/20/2022 [...] C3 Electronically signed: Christian Upton. Transcribed by: [email or web address], User Resident: Electronically Signed by: CHRISTIAN UPTON @ 04/20/2022 02:33 PM Normal [facility] Comment on above: Order Comment: Views (X-RAY, CERVICAL SPINE): AP, Lateral, Odontoid, Flexion, Extension COMP METABOLIC PANELon 04-20 Albumin [Mass/Vol] 4.1 g/dL Normal 3.5-5.7 [facility] Comment on above: Performed By: #### 3 5515, 27760, 93348 #### [facility] [address] ALKALINE PHOSPH 63 IU/L Normal 34-104 [facility] Comment on above: Performed By: #### 3 5515, 47177, 91087 #### [facility] [address] ALT [Catalytic activity/Vol] 15 U/L Normal 7-52 [facility] Comment on above: Performed By: #### 3 5515, 09984, 53900 #### [facility] [address] AST [Catalytic activity/Vol] 22 U/L Normal 13-39 The [facility] Comment on above: Performed By: #### 3 5515, 14998, 67600 #### [facility] [address] [place] [address], [place] Bilirubin [Mass/Vol] 0.5 mg/dL Normal 0.3-1.0 The [facility] Comment on above: Performed By: #### 3 5515, 36785, 71422 #### [facility] [address] [place] [address], [place] Calcium [Mass/Vol] 10.2 mg/dL Normal 8.6-10.3 [facility] Comment on above: Performed By: #### 3 5515, 01215, 95950 #### [facility] [address] [place] [address], [place] Chloride [Moles/Vol] 105 mmol/L Normal 98-107 The [facility] Comment on above: Performed By: #### 3 5515, 48376, 56619 #### [facility] [address] [place] [address], [place] CO2 [Moles/Vol] 25 mmol/L Normal 21-31 The [facility] Comment on above: Performed By: #### 3 5515, 77046, 19395 #### [facility] [address] [place] [address], [place] Creatinine [Mass/Vol] 0.95 mg/dL Normal 0.60-1.20 [facility] Comment on above: Performed By: #### 3 5515, 52762, 55140 #### [facility] [address] [place] [address], [place] GFR/1.73 sq M.predicted among non-blacks MDRD (S/P/Bld) [Vol rate/Area] mL/min/{1.73_m2} Normal >60 [facility] Comment on above: Result Comment: The [facility]'s estimated glomerular filtration rate [...] of individuals. Performed By: #### 3 5515, 68361, 03980 #### [facility] [address] [place] [address], [place] Glucose [Mass/Vol] 88 mg/dL Normal 70-100 The [facility] Comment on above: Performed By: #### 3 5515, 63909, 06372 #### [facility] [address] [place] [address], [place] Potassium [Moles/Vol] 4.5 mmol/L Normal 3.5-5.1 The [facility] Comment on above: Performed By: #### 3 5515, 06294, 53896 #### [facility] [address] [place] [address], [place] Protein [Mass/Vol] 6.8 g/dL Normal 6.0-8.3 [facility] Comment on above: Performed By: #### 3 5515, 69620, 56821 #### [facility] [address] [place] [address], [place] Sodium [Moles/Vol] 138 mmol/L Normal 136-145 [facility] Comment on above: Performed By: #### 3 5515, 64550, 39897 #### [facility] [address] [place] [address], [place] Urea nitrogen [Mass/Vol] 29 mg/dL High 7-25 The [facility] Comment on above: Performed By: #### 3 5515, 62763, 34327 #### [facility] [address] [place] [address], [place] CYCLIC CITRULLINATED PEPTIDE [place] [id number] 04-20-2022 CYCLIC CIT PEP 2 Units Normal 0-19 The [facility] Comment on above: Result Comment: [...] be monitored and testing repeated. Performed By: [employer] [address] [place] [address] [employer] Drawer: Brett Tamez MD, PhD FERRITINon 04-20-2022 Ferritin [Mass/Vol] 43 ng/mL Normal 11-307 The [facility] Comment on above: Performed By: #### 3 5515, 59821, 48480 #### [address] HAND LEFT 3 VWSon 04-20-2022 HAND LEFT 3 VWS [facility] Department of Radiology [address] [place] [phone] ===== Patient Name: LOBO MURDOCK : 1945 Sex: F Age: Race: White Pt. Location: [facility] Patient Status: O Ordered Date: 04/20/2022 10:50:00 AM Completed Date: 04/20/2022 11:42 AM Requesting Provider: MICHAEL HAHN Attending Provider: ARIADNA NOLAN Report Copy To: Signs & Symptoms: M79.641 Pain in right hand I10 History: Chloe Comments: Evaluate Exam: HAND LEFT 3 [facility] ===== HAND LEFT 3 [facility] 04/20/2022 11:42 AM CLINICAL INDICATIONS: M79.641 Pain [...] report. Electronically signed: Chelita Lazcano. Transcribed by: [email or web address], User Resident: NIRMALA MONGE Electronically Signed by: CHELITA LAZCANO @ 04/20/2022 01:29 PM I personally read this/these film(s) with this resident Normal The [facility] Comment on above: Order Comment: Evalu ate HAND RIGHT 3 [facility] 2 HAND RIGHT [address] [facility] Department of Radiology [address] [place] [phone] ===== Patient Name: LOBO MURDOCK : 1945 Sex: F Age: Race: White Pt. Location: [facility] Patient Status: O Ordered Date: 04/20/2022 [...] report. Electronically signed: Chelita Lazcano. Transcribed by: [email or web address], User Resident: NIRMALA MONGE Electronically Signed by: CHELITA LAZCANO @ 04/20/2022 01:43 PM I personally read this/these film(s) with this resident Normal The [facility] Comment on above: Order Comment: Evalu ate RHEUMATOID FACTOR SERUMon RA <20 Normal 0-20 The [facility] Comment on above: Performed By: #### 6 1405, 99998 #### [facility] [address] [place] [address], [place] SEDIMENTATION RATEon 022 SED RATE 38 mm/hr High 0-20 The [facility] Comment on above: Performed By: #### 5 6506, 73307 ####[facility] [place] [address], [facility] TIBC- INCLUDES IRONon 2021 FE SATURATION 30 % Normal 20-50 [facility] Comment on above: Performed By: #### 3 5515, 58066, 80283 #### [facility] [address] [place] [address], [place] Iron [Mass/Vol] 115 ug/dL Normal 50-212 The [facility] Comment on above: Performed By: #### 3 5515, 13158, 29625 #### [facility] [address] [place] [address], [place] TIBC 378 mcg/dL Normal 250-450 [facility] Comment on above: Performed By: #### 3 5515, 45351, 85023 #### [facility] [address] [place] [address], [place] UIBC 263 mcg/dL Normal 155-355 [facility] Comment on above: Performed By: #### 3 5515, 12771, 82702 #### [facility] [address] [place] [address], [place] CALCIUMon 04-09-2022 Calcium [Mass/Vol] 9.6 mg/dL Normal 8.5-10.1 [facility] Comment on above: Performed By: #### [place], [place] #### [facility] [address] [address] [address] Dang Grimm CREATININEon 04-09-2022 Creatinine [Mass/Vol] 1.07 mg/dL Critically high 0.55-1.02 [facility] Comment on above: Performed By: #### [place], [place] #### [facility] [address] [address] [address] Dang Grimm EGFR-AF GHANAIAN >60 Normal >=60 [facility] Comment on above: Performed By: #### [place], [place] #### [facility] [address] [address] [address] Dang Grimm EGFR-NON AF GHANAIAN 50 mL/min/1.73m2 Critically low >=60 [facility] Comment on above: Performed By: #### [place], [place] #### [facility] [address] [address] [address] Dang Grimm Vital Signs Date Time Vital Sign Value Performing Clinician Facility 03-20-2024 09:15-0400 Diastolic blood pressure 62 mm[Hg] MD Patricia Stanford Work Phone: [facility] 03-20-2024 09:15-0400 Heart rate 72 /min MD Patricia Stanford Work Phone: [facility] 03-20-2024 09:15-0400 Respiratory rate 20 /min MD Patricia Stanford Work Phone: [facility] 03-20-2024 09:15-0400 SaO2% (BldA) [Mass fraction] 99 % MD Patricia Stanford Work Phone: [facility] 03-20-2024 09:15-0400 Systolic blood pressure 115 mm[Hg] MD Patricia Stanford Work Phone: [facility] 03-20-2024 07:18-0400 Body height 156.84 cm MD Patricia Stanford Work Phone: [facility] 03-20-2024 07:18-0400 Body weight 55.33 kg MD Patricia Stanford Work Phone: [facility] 03-16-2024 09:04-0400 Body height 156.84 cm MD Patricia Stanford Work Phone: [facility] 03-16-2024 09:04-0400 Body mass index (BMI) [Ratio] 22.8 kg/m2 MD Patricia Stanford Work Phone: [facility] 03-16-2024 09:04-0400 Body weight 56.24 kg MD Patricia Stanford Work Phone: [facility] 03-16-2024 09:04-0400 Diastolic blood pressure 72 mm[Hg] MD Patricia Stanford Work Phone: [facility] 03-16-2024 09:04-0400 Heart rate 81 /min MD Patricia Stanford Work Phone: [facility] 03-16-2024 09:04-0400 Systolic blood pressure 122 mm[Hg] MD Patricia Stanford Work Phone: [facility] 10-02-2023 09:55-0500 Diastolic blood pressure 67 mm[Hg] MD Patricia Stanford Work Phone: [facility] 10-02-2023 09:55-0500 Heart rate 80 /min MD Patricia Stanford Work Phone: [facility] 10-02-2023 09:55-0500 Respiratory rate 16 /min MD Patricia Stanford Work Phone: [facility] 10-02-2023 09:55-0500 SaO2% (BldA) [Mass fraction] 99 % MD Patricia Stanford Work Phone: [facility] 10-02-2023 09:55-0500 Systolic blood pressure 108 mm[Hg] MD Patricia Stanford Work Phone: [facility] 10-02-2023 07:07-0500 Body height 160.02 cm MD Patricia Stanford Work Phone: [facility] 10-02-2023 07:07-0500 Body weight 56.69 kg MD Patricia Stanford Work Phone: [facility] 08-30-2023 10:30-0500 Body height 157.48 cm Patricia Stanford Other [facility] 08-30-2023 10:30-0500 Body mass index (BMI) [Ratio] 21.73 kg/m2 Patricia Stanford Other [facility] [employer] Other 08-30-2023 10:30-0500 Body weight 53.89 kg Patricia Stanford Other [facility] [employer] Other 08-30-2023 10:30-0500 Body weight 53.88 kg MD Patricia Stanford Work Phone: [facility] 08-30-2023 10:30-0500 Diastolic blood pressure 74 mm[Hg] Patricia Stanford Other [facility] 08-30-2023 10:30-0500 Systolic blood pressure 122 mm[Hg] Patricia Stanford Other [facility] 08-21-2023 13:45-0500 Body height 157.48 cm Imad Asaad Other [facility] 08-21-2023 13:45-0500 Body mass index (BMI) [Ratio] 21.58 kg/m2 Imad Asaad Other [facility] [employer] Other 08-21-2023 13:45-0500 Body weight 53.52 kg Imad Asaad Other [facility] 07-15-2023 11:30-0500 Body height 157.48 cm Patricia Stanford Other [facility] 07-15-2023 11:30-0500 Body mass index (BMI) [Ratio] 21.73 kg/m2 Patricia Stanford Other [facility] [employer] Other 07-15-2023 11:30-0500 Body weight 53.89 kg Patricia Stanford Other [facility] [employer] Other 07-15-2023 11:30-0500 Body weight 53.88 kg MD Patricia Stanford Work Phone: [facility] 07-15-2023 11:30-0500 Diastolic blood pressure 78 mm[Hg] Patricia Stanford Other [facility] 07-15-2023 11:30-0500 Systolic blood pressure 148 mm[Hg] Patricia Stanford Other [facility] 07-06-2023 09:20-0500 Body height 157.48 cm MD Patricia Stanford Work Phone: [facility] 07-06-2023 09:20-0500 Body weight 55.51 kg MD Patricia Stanford Work Phone: [facility] Encounters Encounter Date Encounter Type Care Provider Facility Start: 04-29-2024 End: 04-29-2024 ambulatory CARI B APLING Not Available Start: 04-15-2024 End: 04-15-2024 ambulatory CARI B APLING Not Available Start: 03-20-2024 Non-patient / Non-visit MD Marlys Stanford Work Phone: [facility] Gastroenterology Work Phone: Start: 03-20-2024 End: 03-20-2024 Admission to same day surgery center MD Patricia Stanford Work Phone: [facility] Work Phone: Start: 03-20-2024 End: 03-20-2024 ambulatory MD Patricia Stanford Work Phone: [facility] Work Phone: Start: 03-18-2024 End: 03-18-2024 ambulatory CARI B APLING Not Available Start: 03-17-2024 Preoperative state MD Patricia bliss Work Phone: [facility] Start: 03-16-2024 End: 03-16-2024 ambulatory CARI B APLING Not Available Start: 03-16-2024 End: 03-16-2024 Patient encounter procedure MD Patricia Stanford Work Phone: [facility] Work Phone: Start: 10-14-2023 End: 10-15-2023 ambulatory Ara Maier MD Facility:[facility] Start: 10-04-2023 End: 10-04-2023 ambulatory Imad Asaad Other [employer] Other Start: 10-04-2023 Telephone encounter Imad Asaad [facility] Start: 10-02-2023 Non-patient / Non-visit MD Marlys Stanford Work Phone: [facility] Gastroenterology Work Phone: Start: 10-02-2023 End: 10-02-2023 Admission to same day surgery center MD Patricia Stanford Work Phone: [facility] Work Phone: Start: 10-02-2023 End: 10-02-2023 ambulatory MD Patricia Stanford Work Phone: [facility] Work Phone: Start: 09-23-2023 End: 09-23-2023 ambulatory Patricia Stanford Other [facility] Other Start: 09-23-2023 Telephone encounter Patricia REYES [facility] Start: 09-09-2023 End: 09-09-2023 ambulatory CARI B APLING Not Available Start: 09-04-2023 End: 09-04-2023 ambulatory CARI B APLING Not Available Start: 09-03-2023 End: 09-03-2023 ambulatory Patricia Stanford Other [facility] Other Start: 09-03-2023 Telephone encounter Patricia Stanford [facility] [employer] Start: 08-30-2023 End: 08-30-2023 ambulatory Patricia Stanford Other [facility] Other Start: 08-30-2023 Office outpatient vi sit 15 minutes Patricia Stanford [facility] Start: 08-30-2023 End: 08-30-2023 Patient encounter procedure MD Patricia Stanford Work Phone: [facility]- Start: 08-23-2023 End: 08-23-2023 ambulatory Patricia Stanford Other [facility] Other Start: 08-23-2023 Telephone encounter Patricia Stanford [facility] Start: 08-21-2023 End: 08-21-2023 ambulatory Imad Asaad Other [facility] Other Start: 08-21-2023 Office outpatient ne w 45 minutes Imad Asaad [facility] Start: 08-21-2023 End: 08-21-2023 Patient encounter procedure MD Patricia Stanford Work Phone: [facility] Gastroenterology Work Phone: Start: 07-15-2023 End: 07-15-2023 ambulatory Patricia Stanford Other [facility] Other Start: 07-15-2023 Office outpatient vi sit 15 minutes Patricia Stanford [facility] Start: 07-15-2023 Telephone encounter Patricia Stanford [facility] Start: 07-15-2023 End: 07-15-2023 Patient encounter procedure MD Patricia Stanford Work Phone: [facility] Work Phone: Start: 07-06-2023 End: 07-06-2023 Patient encounter procedure MD Patricia Stanford Work Phone: [facility] Work Phone: Start: 05-06-2023 End: 05-07-2023 ambulatory Ara Maier MD Facility:[facility] Start: 04-22-2023 End: 04-23-2023 ambulatory Ara Maier MD Facility:[facility] Start: 10-03-2022 End: 10-05-[address] PATRICIA STANFORD Facility:[facility] Start: 09-27-2022 End: 09-28-[address] MASSIMO MATTHEWS . Facility:[facility] Start: 09-11-2022 End: 09-11-[address] MASSIMO MATTHEWS . Facility:[facility] Start: 09-07-2022 End: 10-17-[address] MASSIMO MATTHEWS . Facility:[facility] Start: 09-04-2022 End: 09-05-[address] MASSIMO MATTHEWS . Facility:[facility] Start: 07-26-2022 Encounter for preprocedural laboratory examination DR MASSIMO MATTHEWS . [facility] Start: 07-24-2022 End: 07-24-[address] [...] Start: 04-20-2022 End: 04-21-2022 ambulatory ARIADNA NOLAN Facility:[facility] Start: 04-09-2022 End: 04-10-[address] PATRICIA STANFORD Facility:[facility] Start: 02-27-2022 End: 02-28-2022 ambulatory DEFAULT PHYSICIAN Facility:[facility] Start: 02-22-2022 End: 02-23-[address] MASSIMO MATTHEWS . Facility:[facility] Start: 12-06-2021 ambulatory MICHELE SALDAÑA . Facility: 1 Start: 11-30-2021 End: 12-01-[address] MASSIMO MATTHEWS . Facility: Start: 10-25-2020 Pre-procedure evaluation check Patricia Stanford Other [facility] Other Procedures Date Procedure Procedure Detail Performing Clinician Start: 03-20-2024 Colonoscopy MD Patricia Stanford Work Phone: Start: 10-02-2023 Esophagogastroduodenoscopy MD Patricia fox Work Phone: Start: 07-10-2017 Screening mammography Patricia Stanford Other Start: 07-19-2016 General examination of patient Patricia Cole valerie Other Plan of Treatment Date Care Activity Detail Author Start: 03-20-2024 [facility] Start: 10-02-2023 [facility] Patient Education Hemorrhoids (D C) Know your Meds [facility] Work Phone: Immunizations Immunization Date Immunization Notes Care Provider Fa cility 05-17-2022 zoster vaccine, live Patricia Stanford Other [facility] 04-23-2022 influenza virus vaccine, split virus (incl. purified surface antigen) Patricia Stanford Other [facility] [employer] Other 04-23-2022 influenza virus vaccine, unspecified formulation MD Patricia Stanford Work Phone: [facility] 04-23-2022 pneumococcal polysaccharide vaccine, 23 valent Patricia Stanford Other [facility] 04-23-2022 tetanus toxoid, adsorbed Patricia Stanford Other [facility] 05-25-2021 influenza virus vaccine, split virus (incl. purified surface antigen) Patricia Stanford Other [facility] [employer] Other 05-25-2021 influenza virus vaccine, unspecified formulation MD Patricia Stanford Work Phone: [facility] 10-18-2020 COVID-19 Vaccine Moderna - Documentation Purposes Only Patricia Stanford Other [facility] 09-19-2020 COVID-19 Vaccine Moderna - Documentation Purposes Only Patricia Stanford Other [facility] 04-16-2020 influenza virus vaccine, split virus (incl. purified surface antigen) Patricia Stanford Other [facility] [employer] Other 04-16-2020 influenza virus vaccine, unspecified formulation MD Patricia Stanford Work Phone: [facility] 05-12-2019 influenza virus vaccine, split virus (incl. purified surface antigen) Patricia Stanford Other [facility] [employer] Other 05-12-2019 influenza virus vaccine, unspecified formulation MD Patricia Stanford Work Phone: [facility] 04-18-2018 influenza virus vaccine, split virus (incl. purified surface antigen) Patricia Stanford Other [facility] [employer] Other 04-18-2018 influenza virus vaccine, unspecified formulation MD Patricia Stanford Work Phone: [facility] 07-10-2017 pneumococcal conjuga te vaccine, 13 valent Patricia Stanford Other [facility] 04-18-2017 influenza virus vaccine, split virus (incl. purified surface antigen) Patricia Stanford Other [facility] [employer] Other 04-18-2017 influenza virus vaccine, unspecified formulation MD Patricia Stanford Work Phone: [facility] 05-09-2016 influenza virus vaccine, split virus (incl. purified surface antigen) Patricia Stanford Other [facility] [employer] Other 05-09-2016 influenza virus vaccine, unspecified formulation MD Patricia Stanford Work Phone: [facility] 05-27-2013 tetanus and diphther ia toxoids, adsorbed, preservative free, for adult use (5 Lf of tetanus toxoid and 2 Lf of diphtheria toxoid) Patricia Stanford Other [facility] 12-24-2011 pneumococcal polysaccharide vaccine, 23 valent Patricia Abdoulaye Other [facility] Payers Date Payer Category Payer Self-pay 2022 Medicare 2022 Unknown 1959 Medicare [id number] 1959 Unknown [id number] 1945 Unknown [id number] 2.16.8 40.1.499440.3.579.2.647 1945 Unknown [id number] 2.16.8 40.1.277341.3.579.2.647 1945 Unknown [id number] 2.16.84 0.1.045775.3.579.2.593 1945 Unknown [id number] 2.16.84 0.1.322865.3.579.2.593 1945 Unknown [id number] 2.16.84 0.1.026449.3.579.2.593 1945 Unknown [id number] 2.16.84 0.1.516248.3.579.2.593 1945 Unknown [id number] 2.16.84 0.1.601863.3.579.2.593 1946 Unknown [id number] 2.16.84 0.1.492053.3.579.2.593 1946 Unknown [id number] 2.16.84 0.1.140451.3.579.2.593 1946 Unknown [id number] 2.16.84 0.1.620737.3.579.2.593 1946 Unknown [id number] 2.16.84 0.1.281659.3.579.2.593 1946 Unknown [id number] 2.16.84 0.1.466592.3.579.2.593 1946 Unknown [id number] 2.16.84 0.1.727891.3.579.2.593 1946 Unknown [id number] 2.16.84 0.1.707919.3.579.2.593 1946 Unknown [id number] 2.16.84 0.1.275905.3.579.2.593 1946 Unknown [id number] 2.16.84 0.1.858936.3.579.2.593 1946 Unknown [id number] 2.16. 840.1.166823.3.579.2.196 1945 Unknown [id number] 2.16. 840.1.388405.3.579.2.196 1946 Unknown [id number] 2.16. 840.1.435983.3.579.2.196 1945 Unknown [id number] 2.16.84 0.1.656181.3.579.2.1259 1946 Unknown [id number] 2.16.84 0.1.996136.3.579.2.1259 1946 Unknown [id number] 2.16.84 0.1.035613.3.579.2.1259 1946 Unknown [id number] 2.16.84 0.1.184549.3.579.2.1259 1946 Unknown [id number] 2.16.84 0.1.799338.3.579.2.1259 1945 Unknown [id number] 2.16.84 0.1.003284.3.579.2.1259 1945 Unknown [id number] 2.16.84 0.1.714040.3.579.2.1259 Medicare Medicare Outpatient [id number] Unknown [id number] 2.16.8 40.1.926491.3.579.2.531 Social History Date Type Detail Facility Unknown if ever smoked [facility] [employer] Other Sex Assigned At Sex Assigned At Bir th [facility] [employer] Other Start: 10-02-2023 End: 03-20-2024 Tobacco smoking status NHIS Never smoked tobacco (finding) [facility] Start: 1945 Sex Assigned At Female F [facility] Goals Date Patient Goal Desired Activity /State Clinical Notes 11-30-2021 to 03-20-2024 Note Date & Type Note Facility 03-20-2024 Procedure note [facility] 10-02-2023 Procedure note [facility] 08-30-2023 Evaluation note Encounter Date Diagnosis [...] try OTC ones in meantime. Referral placed. [facility] [employer] Other 01-10-2024 Evaluation note* Encounter Date Diagnosis Assessment Notes Treatment Notes Treatment Clinical Notes Aug, GERD (gastroesophageal reflux disease) (ICD-10 - K21.9) Aug, Chronic diarrhea (ICD-10 - K52.9) Patient reports that her last colonoscopy was at the [facility] about 11 years ago and that she can not remember who preformed the procedure Aug, Abdominal pain (ICD-10 - R10.9) Aug, Weight loss, unintentional (ICD-10 - R63.4) Aug, Change in bowel habits (ICD-10 - R19.4) Dasianet is advised to have a colonoscopy ordered, scheduled and prep instructions given today Risks and benefits of procedure explained to patient; patient verbalizes understanding. [facility] Other 12-04-2023 Evaluation note* Encounter Date Diagnosis [...] (ICD-10 - M81.0) Due for Dexa 08/2023 [facility] Other 02-16-2023 NoteCONSULTATION CONSULTATION DATE: 09/27/2022 HISTORY OF PRESENT ILLNESS: This is a 76-year-old female who returns to the clinic status post LES on 09/11/2022. The patient states she was afforded between 50-60% relief. Depending on her physical activity, determines her level of comfort. 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 and lifting greatly aggravate her [...] Patient is in agreement with this plan.[id number] NoteCONSULTATION CONSULTATION DATE: 09/04/2022 HISTORY OF PRESENT [...] patient understands and would like to proceed.[id number] NoteCONSULTATION CONSULTATION DATE: 07/11/2022 HISTORY OF PRESENT [...] followed up in the clinic post procedure.[facility] [id number] NoteCONSULTATION PROCEDURE DATE: 07/11/2022 PREOPERATIVE DIAGNOSIS: Bilateral [...] will be followed up in the clinic.[facility] 06-06-2022 NoteCONSULTATION CONSULTATION DATE: 06/06/2022 HISTORY [...] pain returning. 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 The patient has not seen a camp coordinator in the past. REVIEW OF SYSTEMS, PAST [...] mg q.h.s. A referral to rheumatology near [place] will be sent on her behalf and I highly encouraged her to seek consultation, particularly since she has a familial history of autoimmune diseases. The patient agrees with the plan of care and will be followed up in the office in three months' time. [facility] Signed and Approved by: MICHELE SALDAÑA . 03/02/2022 14:16:00[facility]04-21-2022 NoteCONSULTATION Consultation Date:11/30/2021 PREOPERATIVE DIAGNOSIS: Right [...] up in the office. [facility] Signed and Approved by: MICHELE SALDAÑA . 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 Lying down and using heat decrease her pain. Prior to the procedure, she was in a state of acute pain and was placed on a short term course of [place] 5/325 b.i.d. p.r.n. Patient states she only [...] of care and would like to proceed. IF Signed and Approved by: MICHELE SALDAÑA . 12/06/2021 16:15:00[facility] noteNo InformationNort [employer] Other Evaluation noteNo assessment information available [facility] Work Phone: Evaluation note* Diagnosis Onset Date Resolution Status Lumbar spondylosis acute Preoperative clearance acute Situational depression acute [facility] Work Phone: History and physical note Author Sunny Torres [facility] October 02, 2023 8:54am Note Date/Time October 02, 2023 8:54am [facility] [address] [place] [address] Gastroenterology H&P Signed Patient: Lobo Murdock MR#: [id number] : 1945 Acct:[id number] Age/Sex: 78 / F Adm Date: 4 Loc: Room: Type: [facility] Attending Dr: Sunny Torres MD Copies to: [...] signed by Sunny Torres MD> 10/02/23 0854 [facility] Work Phone: History and physical note Author Sunny Torres [facility] March 20, 2024 8:43am Note Date/Time March 20, 2024 8:4 3am [facility] [address] [place] [address] Gastroenterology H&P Signed Patient: Lobo Murdock MR#: [id number] : 1945 Acct:[id number] Age/Sex: 78 / F Adm Date: 4 Loc: Room: Type: [facility] Attending Dr: Sunny Torres MD Copies to: [...] signed by Sunny Torres MD> 03/20/24 0843 [facility] Work Phone: History general Narrative [...] shoulder pain 1982 Hospitalization History migraines 1992 [facility] Other Hospital Discharge instructions Additional Instructions DISCHARGE [...] NOT operate machinery such as power tools, [employer] mowers, vmock.comwers, sewing machines, etc. for 24 hours. - [...] up in the office - Office number [phone]. [facility] Work Phone: Summary Purpose Family [...] 1 Chronic diarrhea (K5 2.9) Referral Organization [facility] foss Referring Provider First Name Patricia Referring Provider Last Name Abdoulaye Referring Provider Specialty Family [facility] Referred Organization [facility] Gastroenterolo gy Referred Address [address] [address] ,[place], [place],[address] Referred Provider Specialty Gastroentero logy Referral Priority Routine Reason *FU 09/06 R foot p ain Diagnosis 1 Pain of left great t oe (M79.675) Referral Organization [facility] Referring Provider First Name Patricia Referring Provider Last Name Abdoulaye Referring Provider Specialty Family [facility] cine Referred Organization [facility] Referred Provider Odin Chong Referred Address [address],[place], [place],[address] Referred Provider Specialty Podiatry - S urgical [...] and content) DATE CREATED AUTHOR 05/09/2022 [facility] DATE CREATED AUTHOR AUTHOR'S ORGANIZ ATION 11/17/2022 [facility] DATE CREATED AUTHOR AUTHOR'S ORGANIZ ATION 10/18/2023 [facility] DATE CREATED AUTHOR AUTHOR'S ORGANIZ ATION 04/01/2024 [facility] DATE CREATED AUTHOR AUTHOR'S ORGANIZ ATION 05/01/2024 [facility] EPIC REASON FOR VISIT (unrecogniz [...] 2023 Team Status: Inactive Member Role Status Terrie Stanford MD Primary Care Provider Active Start: [...] 2023 Team Status: Inactive Member Role Status Terrie Stanford MD Primary Care Provide r, Attending Provider Active Start: March 16, 2024 End: March 16, 2024 Team Status: Inactive Member Role Status Terrie Stanford MD Primary Care Provider Active Start: March 20, 2024 End: March 20, 2024 Sunny Torres MD Attending Provider Active Start: March 20, 2024 End: March 20, 2024 Team Status: Active Member Role Status Terrie Stanford MD Primary Care Provider Active Start: [...] BE BASED ON THE PRIMARY CLINICAL RECORDS. [employer] provides no warranty or guarantee of the accuracy or completeness of information in this document.
== END 2024-05-01 10:39 | disposition home or self-care (01) ==
LOC: EC 10:38
PROVIDERS: PCP Family Medicine; Visit Provider Orthopaedic Surgery Orthopaedic Surgery of the Spine
DX: M54.50 Low back pain, unspecified (principal); M43.26 Fusion of spine, lumbar region
CPT/HCPCS: 72100

== ENCOUNTER 2024-05-06 13:52 | Outpatient (RCR) | payer MEDICARE, SELFPAY | END 2024-05-30 11:42 | disposition home or self-care (01) | LOC: PT 13:52 | PROVIDERS: PCP Family Medicine; Visit Provider Orthopaedic Surgery Orthopaedic Surgery of the Spine | DX: Z47.89 Encounter for other orthopedic aftercare (principal); R29.3 Abnormal posture; R26.89 Other abnormalities of gait and mobility | CPT/HCPCS: 97113; 97161; 97530 ==

== ENCOUNTER 2024-06-26 10:35 | Outpatient (OUT) | payer MEDICARE, SELFPAY ==
--- NOTE | 2024-06-26 | XR_ITS ---
The [address] [address] Patient Name: LOBO MURDOCK MRN: [id number] date: 1945 Sex: F Assigned Patient Location: Current Patient Location: Accession/Order Number: [id number] Exam Date: 06/26/2024 10:47 Report Date: 06/30/2024 09:14 At the request of: VERONICA CARCAMO Procedure: XR lumbar spine 2-3V EXAMINATION: XR lumbar spine 2-3V HISTORY: LUMBAR SPINE PAIN COMPARISON: XR lumbar spine 05/01/2024 FINDINGS: BONES: Posterior mechanical fusion L4-L5 without evidence of hardware failure or change in alignment. Stable 10 mm anterior listhesis of L4 on 5. Posterior decompression of L4 and L5. DISC SPACES: Multilevel mild/moderate narrowing. Marked narrowing L4-5, L5-S1. PARASPINOUS: Negative. No paraspinous abnormality is seen. OTHER: Interval fusion of right sacroiliac joint. XR/XR lumbar spine 2-3V IMPRESSION: 1. Stable surgical changes and degenerative changes of lumbar spine. 2. Interval fusion of right sacroiliac joint. Electronically authenticated by: IRINA VÁZQUEZ Date: 06/30/2024 09:14
--- OUTSIDE RECORDS SUMMARY | 2024-06-26 10:57 | XMS_ITS | CCD ---
Author Organization [facility] Providers Care Director Learning And Development Name Role Phone PHYSICIAN, DEFAULT Admitting Unavailable PHYSICIAN, DEFAULT Attending Unavailable ALT-DANIEL, BRINDA Primary Care Unavailable OVIDIO, ARIADNA Cook Admitting Unavailable OVIDIO, ARIADNA Cook Attending Unavailable ALT-DANIEL, BRINDA Referring Unavailable ALT-DANIEL, BRINDA Primary Care Unavailable MATTHEWS ., DR MASSIMO Cook Attending Unavailable SALDAÑA ., MICHELE Consulting Unavailable STANFORD, DR PATRICIA Menchaca Primary Care Unavailable MATTHEWS ., DR MASSIMO Cook Admitting Unavailable MATTHEWS ., DR MASSIMO Cook Attending Unavailable MATTHEWS ., DR MASSIMO Cook Admitting Unavailable STANFORD, DR PATRICIA Menchaca Primary Care Unavailable MATTHEWS ., DR MASSIMO Cook Consulting Unavailable MATTHEWS ., DR MASSIMO Cook Attending Unavailable MATTHEWS ., DR MASSIMO Cook Admitting Unavailable MATTHEWS ., DR MASSIMO Cook Consulting Unavailable STANFORD, DR PATRICIA Menchaca Primary Care Unavailable DENY JACOBSON Consulting Unavailable MATTHEWS ., DR MASSIMO Cook Attending Unavailable MATTHEWS ., DR MASSIMO Cook Admitting Unavailable SALDAÑA ., MICHELE Consulting Unavailable STANFORD, DR PATRICIA Menchaca Primary Care Unavailable MATTHEWS ., DR MASSIMO Cook Consulting Unavailable MATTHEWS ., DR MASSIMO Cook Attending Unavailable MATTHEWS ., DR MASSIMO Cook Admitting Unavailable STANFORD, DR PATRICIA Menchaca Primary Care Unavailable MATTHEWS ., DR MASSIMO Cook Attending Unavailable MATTHEWS ., DR MASSIMO Cook Admitting Unavailable SALDAÑA ., MICHELE Consulting Unavailable STANFORD, DR PATRICIA Menchaca Primary Care Unavailable MATTHEWS ., DR MASSIMO Cook Attending Unavailable MATTHEWS ., DR MASSIMO Cook Admitting Unavailable SALDAÑA ., MICHELE Consulting Unavailable ABDOULAYE, DR PATRICIA Menchaca Primary Care Unavailable SALDAÑA ., MICHELE Attending Unavailable STANFORD, DR PATRICIA Menchaca Primary Care Unavailable SALDAÑA ., MICHELE Admitting Unavailable MATTHEWS ., DR MASSIMO Cook Admitting Unavailable STANFORD, DR PATRICIA Menchaca Primary Care Unavailable MATTHEWS ., DR MASSIMO Cook Attending Unavailable MATTHEWS ., DR MASSIMO Cook Admitting Unavailable MATTHEWS ., DR MASSIMO Cook Consulting Unavailable ABDOULAYE, DR PATRICIA Menchaca Primary Care Unavailable MATTHEWS ., DR MASSIMO Cook Attending Unavailable STANFORD, DR PATRICIA Menchaca Consulting Unavailable STANFORD, DR PATRICIA Menchaca Attending Unavailable STANFORD, DR PATRICIA Menchaca Admitting Unavailable STANFORD, DR PATRICIA Menchaca Primary Care Unavailable STANFORD, DR PATRICIA Menchaca Primary Care Unavailable STANFORD, DR PATRICIA Menchaca Consulting Unavailable STANFORD, DR PATRICIA Menchaca Attending Unavailable STANFORD, DR PATRICIA Menchaca Admitting Unavailable MATTHEWS ., DR MASSIMO Cook Attending Unavailable MATTHEWS ., DR MASSIMO Cook Admitting Unavailable PIPER .MICHELE Consulting Unavailable BALL, DR FLANAGAN Primary Care Unavailable MATTHEWS ., DR MASSIMO Cook Admitting Unavailable MATTHEWS ., DR MASSIMO Cook Attending Unavailable STANFORD, DR PATRICIA Menchaca Primary Care Unavailable MATTHEWS ., DR MASSIMO Cook Consulting Unavailable Patricia Stanford Unavailable Asaad, Imad Unavailable MD Patricia Stanford Primary Care Provider MD Melissa Imravindra Attending Provider [phone] Darrion DIAZ, Ara Loomis Attending Unavailable Darrion DIAZ, Andrius Vcuate Attending Unavailable Darrion DIAZ, Ara Loomis Attending Unavailable MD Patricia Stanford Primary Care Provider MD Melissa Imravindra Attending Provider Patricia Stanford Primary Care Unavailable Asaad, Imad Admitting Unavailable Asaad, Imad Attending Unavailable Patricia Stanford Primary Care Unavailable Asaad, Imad Admitting Unavailable Asaad, Imad Attending Unavailable APLING, CARI B Attending Unavailable APLING, CARI B Attending Unavailable APLING, CARI B Attending Unavailable APLING, CARI B Attending Unavailable APLING, CARI B Attending Unavailable APLING, CARI B Referring Unavailable APLGRACIELA, CARI B Attending Unavailable Patricia Stanford MD Primary Care Provider [phone] ECHO HAM Admitting Unavailbriana menchaca HAMECHO MARKHAM Attending UnavailPATRICIA Rodriguez Primary Care Unavailable HAMECHO CASTELLANO Referring UnavailPATRICIA Rodriguez Primary Care Unavailable Allergies Allergy Classification Reported Allergen(s) Allergy Type Date of Onset Reaction(s) Facility (8 sources) Calcitonin ([place]) *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 Propensity to adverse reactions Comment:severe weakness [employer] Other (2 sources) calcitonin; Translations: [calcitonin] Propensity to adverse reactions [facility] Medications Current Medications Medication Drug Class(es) Dates Sig (Normalized) Sig (Original) baclofen 10 mg oral tablet (10 sources) gamma-Aminobutyric Acid-ergic Agonist Start: 10-25-2020 take 10 mg by mouth once daily Baclofen Active 10 MG PO Daily October 02, 2023 1:00am budesonide 3 mg delayed release oral capsule (3 sources) Corticosteroid Start: 10-04-2023 End: 03-06-2024 Budesonide 3 MG 3 tabs daily for 60 days, 2 tabs daily for 14 days, 1 tab daily for 14 days Orally Once a day for 88 Sep, Active take 2 capsules by m outh once daily in the morning budesonide (ENTOCORT EC) 3 MG delayed release capsule Take 2 capsules by mouth every morning Decreasing doasage Active calcium citrate 1500 mg / cholecalciferol [...] Active Subcutaneous for 0 *[facility] strength[facility]* Aug, Active diclofenac sodium 50 [...] day for 0 days *Pick strength-form from [employer] for eRX* Oct, Active magnesium oxide 400 mg oral tablet (1 source) Start: 03-13-2024 take 1 tablet by mouth once daily Magnesium Oxide Active 400 MG PO Daily March 13, 2024 12:00am [employer] tablet with a meal Orally Once a day; Note: Source Status: Taking*Pick strength-form from [employer] for eRX*; Provider: Abdoulaye Gomez ( ) Multiple Vitamin (8 sources) take 1 tablet by mouth once daily Multiple Vitamin 1 tablet Orally Once a day Active Sttosske-Qqwd-Dd-Ca lcium-Mins (Daily Multiple For Women) 18 mg iron-400 mcg-500 mg Ca tablet (1 source) Start: 03-13-2024 take 1 tablet by mouth once daily Brwohlpn-Pska-Eu-C alcium-Mins (Daily Multiple For Women) 18 mg iron-400 mcg-500 mg Ca tablet Active 1 TAB PO Daily March 13, 2024 12:00am pantoprazole 40 mg delayed release oral tablet (14 sources) Proton Pump Inhibitor Start: 07-15-2023 End: 10-04-2023 take 40 mg by mouth once daily Pantoprazole Active 40 MG PO Daily October 04, 2023 3:40pm take 40 mg by mouth once daily P ANTOPRAZOLE SODIUM PO Take 40 mg by mouth daily Active traMADol hydrochloride 50 mg oral tablet (9 [...] mg tablet Discontinued 10 MG PO Daily March 16, 2024 12:00am March 20, 2024 7:22am hyoscyamine sulfate 0.125 mg oral tablet (9 sources) Start: 03-13-2024 End: 03-16-2024 take 1 tablet by mouth four times daily as needed Hyoscyamine Sulfate Discontinued MG PO March 13, 2024 12:00am March 16, 2024 9:08am [employer] tablet as needed Orally qid prn; Note: Source Status: Refill; Provider: Abdoulaye Menchaca take 1 tablet by brijesh th four times daily as needed Levsin 0.125 [...] Other aftercare (8 sources) 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; Translations: [health care / medical job titles (current) use of bisphosphonates] Episodic Other connective [...] Episodic Other nervous system disorders (1 source) Other acute postprocedural pain; Translations: [Other acute postprocedural pain] Onset: 06-09-2024 Episodic Other non-traumatic joint disorders (1 source) [...] Spondylosis; intervertebral disc disorders; other back problems (19 sources) Other spondylosis with radiculopathy, lumbar region; [...] Test Name Value Interpretation Reference Range Facility [facility] FOR SURGICAL PROCEDUR ESon 06-09-2024 FLUORO FOR SURGICAL PROCEDURES Radiology exam is complete. No Radiologist dictation. Please follow up with ordering provider. Final result Normal [facility] EKG 12 LeadOrdered By: Carter Machuca on 06-03-2024 Atrial Rate 87 BPM [employer] Phone: P Lowry 32 degrees [employer] Phone: P-R Interval 136 ms [employer] Phone: Q-T Interval 350 ms [employer] Phone: QRS Duration 74 ms [employer] Phone: QTc Calculation (Bazett) 421 ms [employer] Phone: R Lowry 12 degrees [employer] Phone: T Lowry 45 degrees [employer] Phone: Ventricular Rate 87 BPM [place] [employer] Phone: [employer] Phone: EKG 12 Leadon 06-03-2024 Normal sinus rhythm Normal ECG No previous ECGs available [facility] Carter Urrutia DO - 06/03/2024 Normal sinus rhythm Normal ECG No previous ECGs available [facility] CBC with Auto Differentialon 06-02-2024 Basophils (Bld) [#/Vol] 0.06 10*3/uL [facility] Basophils/100 WBC (Bld) 1 % 0 - 2 % [facility] Eosinophils (Bld) [#/Vol] 0.09 10*3/uL [facility] Eosinophils/100 WBC (Bld) 1 % 1 - 4 % [facility] Erythrocyte distribution width (RBC) [Ratio] 12.5 % 11.8 - 14.4 % [facility] Hematocrit (Bld) [Volume fraction] 41.5 % 36.3 - 47.1 % [facility] Hemoglobin (Bld) [Mass/Vol] 13.2 g/dL 11.9 - 15.1 g/dL [facility] Immature granulocytes (Bld) [#/Vol] 0.05 10*3/uL [facility] Immature granulocytes/100 WBC (Bld) 1 % High 0 [facility] Interpretation and review of laboratory results Abnormal [facility] Lymphocytes/100 WBC (Bld) 20 % Low 24 - 43 % [facility] Lymphocytes/100 WBC (Bld) 1.62 % [facility] MCH (RBC) [Entitic mass] 31.1 pg 25.2 - 33.5 pg [facility] MCHC (RBC) [Mass/Vol] 31.8 g/dL 28.4 - 34.8 g/dL [facility] MCV (RBC) [Entitic vol] 97.6 fL 82.6 - 102.9 fL [facility] Monocytes/100 WBC (Bld) 10 % 3 - 12 % [facility] Monocytes/100 WBC (Bld) 0.80 % [facility] Neutrophils/100 WBC (Bld) 67 % High 36 - 65 % [facility] Nucleated RBC/100 WBC (Bld) [Ratio] 0.0 % 0.0 per 100 WBC [facility] Platelet mean volume (Bld) [Entitic vol] 10.0 fL 8.1 - 13.5 fL [facility] Platelets (Bld) [#/Vol] 247 10*3/uL [facility] RBC (Bld) [#/Vol] 4.25 10*6/uL 3.95 - 5.1 1 m/uL [facility] Segmented neutrophils/100 WBC (Bld) 5.57 % [facility] WBC other (Bld) [#/Vol] 8.2 [facility] CBC with Diffon 06-02-2024 Abs. Basophil 0.06 k/uL Normal 0.00-0.20 [facility] Comment on above: Performed By: #### C DP #### [address] [address] Patch Finisher: Arpit Cruz MD Abs.Imm.Granulocyte 0.05 k/uL Normal 0.00-0.30 [facility] Comment on above: Performed By: #### C DP #### [place] [address] Patch Finisher: Arpit Cruz MD Abs.Neutrophil (Seg) 5.57 k/uL Normal 1.50-8.10 [facility] Comment on above: Performed By: #### C DP #### [address] [address] Patch Finisher: Arpit Cruz MD Basophils/100 WBC (Bld) 1 % Normal 0-2 [facility] Comment on above: Performed By: #### C DP #### [address] [address] Patch Finisher: Arpit Cruz MD Eosinophils (Bld) [#/Vol] 0.09 10*3/uL Normal 0.00-0.44 [facility] Comment on above: Performed By: #### C DP #### [address] [address] Patch Finisher: Arpit Cruz MD Eosinophils/100 WBC (Bld) 1 % Normal 1-4 [facility] Comment on above: Performed By: #### C DP #### [address] [address] Patch Finisher: Arpit Cruz MD Erythrocyte distribution width (RBC) [Ratio] 12.5 % Normal 11.8-14.4 [facility] Comment on above: Performed By: #### C DP #### [address] [address] Patch Finisher: Arpit Cruz MD Hematocrit (Bld) [Volume fraction] 41.5 % Normal 36.3-47.1 [facility] Comment on above: Performed By: #### C DP #### [address] [address] Patch Finisher: Arpit Cruz MD Hemoglobin (Bld) [Mass/Vol] 13.2 g/dL Normal 11.9-15.1 [facility] Comment on above: Performed By: #### C DP #### [address] [address] Patch Finisher: Arpit Cruz MD Immature granulocytes/100 WBC (Bld) 1 % High 0 [facility] Comment on above: Performed By: #### C DP #### [address] [address] Patch Finisher: Arpit Cruz MD Lymphocytes (Bld) [#/Vol] 1.62 10*3/uL Normal 1.10-3.70 [facility] Comment on above: Performed By: #### C DP #### [address] [address] Patch Finisher: Arpit Cruz MD Lymphocytes/100 WBC (Bld) 20 % Low 24-43 [facility] Comment on above: Performed By: #### C DP #### [address] [address] Patch Finisher: Arpit Cruz MD MCH (RBC) [Entitic mass] 31.1 pg Normal 25.2-33.5 [facility] Comment on above: Performed By: #### C DP #### [address] [address] Patch Finisher: Arpit Cruz MD MCHC (RBC) [Mass/Vol] 31.8 g/dL Normal 28.4-34.8 [facility] Comment on above: Performed By: #### C DP #### [address] [address] Patch Finisher: Arpit Cruz MD MCV (RBC) [Entitic vol] 97.6 fL Normal 82.6-102.9 [facility] Comment on above: Performed By: #### C DP #### [address] [address] Patch Finisher: Arpit Cruz MD Monocytes (Bld) [#/Vol] 0.80 10*3/uL Normal 0.10-1.20 [facility] Comment on above: Performed By: #### C DP #### [address] [address] Patch Finisher: Arpit Cruz MD Monocytes/100 WBC (Bld) 10 % Normal 3-12 [facility] Comment on above: Performed By: #### C DP #### [address] [address] Patch Finisher: Arpit Cruz MD Neutrophil (Seg) 67 % High 36-65 [facility] Comment on above: Performed By: #### C DP #### [address] [address] Patch Finisher: Arpit Cruz MD NRBC Automated 0.0 per 100 WBC Normal 0.0 [facility] Comment on above: Performed By: #### C DP #### [address] [address] Patch Finisher: Arpit Cruz MD Platelet mean volume (Bld) [Entitic vol] 10.0 fL Normal 8.1-13.5 [facility] Comment on above: Performed By: #### C DP #### [address] [address] Patch Finisher: Arpit Cruz MD Platelets (Bld) [#/Vol] 247 10*3/uL Normal 138-453 [facility] Comment on above: Performed By: #### C DP #### [address] [address] Patch Finisher: Arpit Cruz MD RBC (Bld) [#/Vol] 4.25 10*6/uL Normal 3.95-5.11 [facility] Comment on above: Performed By: #### C DP #### [address] [address] Patch Finisher: Arpit Cruz MD WBC (Bld) [#/Vol] 8.2 10*3/uL Normal 3.5-11.3 [facility] Comment on above: Performed By: #### C DP #### [address] [address] Patch Finisher: Arpit Cruz MD Pathology Request for Lab Co rpon 03-20-2024 Pathology Request for Lab Dorothy Normal [facility] Comment on above: Order Comment: PATHO LOGY GI SPECIMEN Result Comment: See report. Scanned copy available in EMR. PERFORMED BY: [place] [address] PATHOLOGIST [employer] PROFESSOR HELENE LEON M.D. Performed By: #### P ATH TO [facility] #### [place] [address] [facility] 10-02-2023 L Specimen: [id number] Received: 10/02/23 Status: OJ Brice Num: [id number] Spec Type: Surgical Subm Dr: Sunny Torres MD Tissues: A GASTRIC FOR HP (GASTRIC BX R/O H.PYLORI) B Colon Biopsy (RANDOM COLON BX R/O MICROSCO) Procedures: HE/4, Gross/Micro L4/2, H PYLORI Age/ Patient Sex Location Account Attending Physician Lobo Murdock 78/F [id number] Sunny Torres MD SPEC NUM: [id number] RECD: 10/02/23 STATUS: OJ BRICE NUM: [id number] TEO: 10/02/[address]: Sunny Torres MD ENTERED: 10/02/[address]: SPEC TYPE: Surgical DEPT: S ORDERED: [...] name, date of and random colon Specimen: [id number] Received: 10/02/23 Status: OJ Brice Num: [id number] Spec Type: Surgical Subm Dr: Sunny Torres MD Tissues: A GASTRIC FOR HP (GASTRIC BX R/O H.PYLORI) B Colon Biopsy (RANDOM COLON BX R/O MICROSCO) Procedures: HE/4, Gross/Micro L4/2, H PYLORI Patient: Lobo Murdock [id number] (Continued) Specimen: [id number] Received: 10/02/23 (Continued) Gross Description (Continued) Signed (signature on file) Patito Grimm MD 10/03/23 1430 Specimen: [id number] Received: 10/02/23 Status: OJ Brice Num: [id number] Spec Type: Surgical Subm Dr: Sunny Torres MD Tissues: A GASTRIC FOR HP (GASTRIC BX R/O H.PYLORI) B Colon Biopsy (RANDOM COLON BX R/O MICROSCO) Procedures: HE/4, Gross/Micro L4/2, H PYLORI Patient: Lobo Murdock [id number] (Continued) Specimen: [id number] Received: 10/02/23-102 (Continued) Gross Description (Continued) biopsy are 2 galvan translucent soft tissue fragments, 0.3 and 0.6 cm in greatest dimensions. Entirely submitted in one cassette labeled B1. CPT Codes [id number] Specimen: [id number] Received: 10/02/23 Status: OJ Brice Num: [id number] Spec Type: Surgical Subm Dr: Sunny Torres MD Tissues: A GASTRIC FOR HP (GASTRIC BX R/O H.PYLORI) B Colon Biopsy (RANDOM COLON BX R/O MICROSCO) Procedures: HE/4, Gross/Micro L4/2, H PYLORI Patient: MurdockLobo [id number] (Continued) Signed (signature on file) Patito Grimm MD 10/03/23 1430 Normal [facility] CALCIUMon 10-03-2022 Calcium [Mass/Vol] 8.9 mg/dL Normal 8.5-10.1 [facility] Comment on above: Performed By: #### VALERIO MADRIGAL #### [facility] [address] [address] [address] Dang Grimm CREATININEon 10-03-2022 Creatinine [Mass/Vol] 1.03 mg/dL Critically high 0.55-1.02 [facility] Comment on above: Performed By: #### VALERIO MADRIGAL #### [facility] [address] [address] [address] Dang Grimm EGFR-AF NEW ZEALANDER >60 Normal >=60 [facility] Comment on above: Performed By: #### C VALERIO ADAMS #### [facility] [address], [place] [address] Dr. Dang Grimm EGFR-NON AF NEW ZEALANDER 52 mL/min/1.73m2 Critically low >=60 [facility] Comment on above: Performed By: #### C VALERIO ADAMS #### [facility] [address], [place] [address] Dr. Dang Grimm Covid-19 PCR ([facility])on SARS-CoV-2 (COVID-19) RNA GENARO+probe Ql (Unsp spec) Not detected Normal NOT DETECTED [facility] Comment on above: Result Comment: This test is not yet approved or cleared by the [place] FDA. When there are no FDA-approved or cleared tests available, and other criteria are met, FDA can make tests available under an emergency access mechanism called an Emergency Use Authorization (EUA). The EUA for this test is supported by the Zoology Teacher of Health and Human Service's (HHS's) declaration [...] SARS-CoV-2. Performed By: #### C VDTB #### [facility] [address], [place] [address] Dr. Dang Grimm ANAon 04-20-2022 OCTAVIA PATTERN SPECKLED Normal [facility] Comment on above: Result Comment: The MELCHOR [...] authority. Performed By: #### 1 0196 #### [facility] [address] OCTAVIA SCREEN 1:40 Normal <1:40,1:40 [facility] Comment on above: Result Comment: Test performed using MELCHOR IFA OCTAVIA Hep-2 Test, a pre-standardized assay designed for the qualitative and semi-quantitative detection of antinuclear antibodies. Performed By: #### 1 0196 #### [facility] [address] C REACTIVE PROTEINon 022 CRP [Mass/Vol] 2.5 mg/L Normal 0.0-7.[address] [facility] Comment on above: Performed By: #### 6 1405, 72500 #### [facility] [address] CBC COMPLETE BLOOD COUNTon 0 04-20-2022 Erythrocyte distribution width (RBC) [Ratio] 12.4 % Normal 11.5-15.0 [facility] Comment on above: Performed By: #### 5 6506, 64467 #### [facility] [address] Hematocrit (Bld) [Volume fraction] 41.6 % Normal 36.0-45.0 [facility] Comment on above: Performed By: #### 5 6506, 67700 #### [facility] [address] [facility] [address] Hemoglobin (Bld) [Mass/Vol] 13.7 g/dL Normal 12.0-15.0 [facility] Comment on above: Performed By: #### 5 6506, 79189 #### [facility] [address] [facility] MCH (RBC) [Entitic mass] 31.4 pg Normal 27.0-33.0 [facility] Comment on above: Performed By: #### 5 6506, 48736 #### [facility] [address] [place] [address], [facility] MCHC (RBC) [Mass/Vol] 32.9 g/dL Normal 32.0-35.0 [facility] Comment on above: Performed By: #### 5 650, 02870 #### [facility] [address] [place] [address], [facility] MCV (RBC) [Entitic vol] 95.2 fL Normal 82.0-98.0 [facility] Comment on above: Performed By: #### 5 650, 45713 #### [facility] [address] [place] [address], [facility] Nucleated RBC/100 WBC (Bld) [Ratio] 0 % Normal 0-0 [facility] Comment on above: Performed By: #### 5 650, 14290 #### [facility] [address] [place] [address], [facility] PLAT CNT 248 10*3/uL Normal 150-400 [facility] Comment on above: Performed By: #### 5 650, 45290 #### [facility] [address] [place] [address], [facility] RBC (Bld) [#/Vol] 4.37 10*6/uL Normal 3.80-5.00 [facility] Comment on above: Performed By: #### 5 650, 59935 #### [facility] [address] [place] [address], [facility] WBC (Bld) [#/Vol] 5.54 10*3/uL Normal 4.00-10.60 [facility] Comment on above: Performed By: #### 5 650, 81990 #### [facility] [address] [place] [address], [facility] CERVICAL SPINE 4 OR 5 VIEWSo n 04-20-2022 CERVICAL SPINE 4 OR 5 VIEWS [facility] Department of Radiology [address] [place] [address] ===== Patient Name: LOBO MURDOCK : 1945 Sex: F Age: Race: White Pt. Location: [facility] Patient Status: O Ordered Date: 04/20/2022 10:50:00 AM Completed Date: 04/20/2022 11:42 AM Requesting Provider: MICHAEL HAHN Attending Provider: ARIADNA NOLAN Report Copy To: Signs & Symptoms: M54.2 Cervicalgia I10 History: [place] Comments: Views (X-RAY, CERVICAL SPINE): AP, Lateral, [...] C3 Electronically signed: Christian Upton. Transcribed by: [email or web address], User Resident: Electronically Signed by: CHRISTIAN UPTON @ 04/20/2022 02:33 PM Normal [facility] Comment on above: Order Comment: Views (X-RAY, CERVICAL SPINE): AP, Lateral, Odontoid, Flexion, Extension COMP METABOLIC PANELon 04-20 Albumin [Mass/Vol] 4.1 g/dL Normal 3.5-5.7 The [facility] Comment on above: Performed By: #### 3 5515, 28582, 37292 #### [facility] [address] [place] [address], [facility] ALKALINE PHOSPH 63 IU/L Normal 34-104 [facility] Comment on above: Performed By: #### 3 5515, 77652, 97848 #### [facility] [address] [place] [address], [facility] ALT [Catalytic activity/Vol] 15 U/L Normal 7-52 [facility] Comment on above: Performed By: #### 3 5515, 84515, 65609 #### [facility] [address] [place] [address], [place] AST [Catalytic activity/Vol] 22 U/L Normal 13-39 [facility] Comment on above: Performed By: #### 3 5515, 93381, 54496 #### [facility] [address] [place] [address], [place] Bilirubin [Mass/Vol] 0.5 mg/dL Normal 0.3-1.0 The [facility] Comment on above: Performed By: #### 3 5515, 77078, 06312 #### [facility] [address] [place] [address], [place] Calcium [Mass/Vol] 10.2 mg/dL Normal 8.6-10.3 The [facility] Comment on above: Performed By: #### 3 5515, 22421, 58943 #### [facility] [address] [place] [address], [place] Chloride [Moles/Vol] 105 mmol/L Normal 98-107 The [facility] Comment on above: Performed By: #### 3 5515, 23036, 38833 #### [facility] [address] [place] [address], [place] CO2 [Moles/Vol] 25 mmol/L Normal 21-31 The [facility] Comment on above: Performed By: #### 3 5515, 56370, 10006 #### [facility] [address] [place] [address], [place] Creatinine [Mass/Vol] 0.95 mg/dL Normal 0.60-1.20 The [facility] Comment on above: Performed By: #### 3 5515, 10717, 68176 #### [facility] [address] [place] [address], [place] GFR/1.73 sq M.predicted among non-blacks MDRD (S/P/Bld) [Vol rate/Area] mL/min/{1.73_m2} Normal >60 The [facility] Comment on above: Result Comment: The [facility]'s estimated glomerular filtration rate (eGFR) will no [...] of individuals. Performed By: #### 3 5515, 94585, 79090 #### [facility] [address] [place] [address], [place] Glucose [Mass/Vol] 88 mg/dL Normal 70-100 The [facility] Comment on above: Performed By: #### 3 5515, 71547, 93574 #### [facility] [address] [place] [address], [facility] Potassium [Moles/Vol] 4.5 mmol/L Normal 3.5-5.1 The [facility] Comment on above: Performed By: #### 3 5515, 84170, 11589 #### [facility] [address] [place] [id number], [facility] Protein [Mass/Vol] 6.8 g/dL Normal 6.0-8.3 The [facility] Comment on above: Performed By: #### 3 5515, 03839, 75658 #### [facility] [address] [place] [address], [facility] Sodium [Moles/Vol] 138 mmol/L Normal 136-145 The [facility] Comment on above: Performed By: #### 3 5515, 41513, 88721 #### [facility] [address] [place] [address], [facility] Urea nitrogen [Mass/Vol] 29 mg/dL High 7-25 The [facility] Comment on above: Performed By: #### 3 5515, 28363, 44062 #### [facility] [address] CYCLIC [place]RULLINATED PEPTIDE [place] [id number] 04-20-2022 CYCLIC CIT PEP 2 Units Normal 0-[address] [facility] Comment on above: Result Comment: INTE [...] be monitored and testing repeated. Performed By: Mire[facility] [address] [place] [id number] Heavy Threader: Brett Tamez MD, PhD FERRITINon 04-20-2022 Ferritin [Mass/Vol] 43 ng/mL Normal 11-307 The [facility] Comment on above: Performed By: #### 3 5515, 20052, 56505 #### [address] HAND LEFT 3 [facility] 04-20-2022 HAND LEFT 3 [facility] Department of Radiology [address] [place] [id number] ===== Patient Name: LOBO MURDOCK : 1945 Sex: F Age: Race: White Pt. Location: [facility] Patient Status: O Ordered Date: 04/20/2022 10:50:00 AM Completed Date: 04/20/2022 11:42 AM Requesting Provider: MICHAEL HAHN Attending Provider: ARIADNA NOLAN Report Copy To: Signs & Symptoms: M79.641 Pain in right hand I10 History: Chloe Comments: Evaluate Exam: HAND LEFT 3 [facility] ===== HAND LEFT 3 S [...] report. Electronically signed: Chelita Lazcano. Transcribed by: [email or web address], User Resident: NIRMALA MONGE Electronically Signed by: CHELITA LAZCANO @ 04/20/2022 01:29 PM I personally read this/these film(s) with this resident Normal The [facility] Comment on above: Order Comment: Evalu ate HAND RIGHT 3 Son 2 HAND RIGHT 3 [facility] Department of Radiology [address] [place] [id number] ===== Patient Name: LOBO MURDOCK : 1945 Sex: F Age: Race: White Pt. Location: [facility] Patient Status: O Ordered Date: 04/20/2022 10:50:00 AM Completed Date: 04/20/2022 11:42 AM Requesting Provider: MICHAEL HAHN Attending Provider: ARIADNA NOLAN S Report Copy To: Signs & Symptoms: M79.641 [...] report. Electronically signed: Chelita Lazcano. Transcribed by: [email or web address], User Resident: NIRMALA MONGE Electronically Signed by: CHELITA LAZCANO @ 04/20/2022 01:43 PM I personally read this/these film(s) with this resident Normal The [facility] Comment on above: Order Comment: Evalu ate RHEUMATOID FACTOR SERUMon RA <20 Normal 0-20 The [facility] Comment on above: Performed By: #### 6 1405, 50077 #### [facility] [address] [place] [address], [facility] SEDIMENTATION RATEon 022 SED RATE 38 mm/hr High 0-20 The [facility] Comment on above: Performed By: #### 5 6506, 37155 ####[facility] [place] [address], [facility] TIBC- INCLUDES IRONon 2021 FE SATURATION 30 % Normal 20-50 [facility] Comment on above: Performed By: #### 3 5515, 62859, 46713 #### [facility] [address] [place] [address], [facility] Iron [Mass/Vol] 115 ug/dL Normal 50-212 [facility] Comment on above: Performed By: #### 3 5515, 07095, 64477 #### [facility] [address] [place] [address], [facility] TIBC 378 mcg/dL Normal 250-450 The [facility] Comment on above: Performed By: #### 3 5515, 06936, 70629 #### [facility] [address] [place] [address], [facility] UIBC 263 mcg/dL Normal 155-355 [facility] Comment on above: Performed By: #### 3 5515, 52133, 66579 #### [facility] [address] [place] [address], [facility] CALCIUMon 04-09-2022 Calcium [Mass/Vol] 9.6 mg/dL Normal 8.5-10.1 [facility] Comment on above: Performed By: #### VALERIO MADRIGAL #### [facility] [address] [place] [address] [address] Dang Grimm CREATININEon 04-09-2022 Creatinine [Mass/Vol] 1.07 mg/dL Critically high 0.55-1.02 [facility] Comment on above: Performed By: #### VALERIO MADRIGAL #### [facility] [address] [place] [address] [address] Dang Grimm EGFR-AF NEW ZEALANDER >60 Normal >=60 [facility] Comment on above: Performed By: #### [place], [place] #### [facility] [address] [place], [place] [address] Dr. Dang Grimm EGFR-NON AF NEW ZEALANDER 50 mL/min/1.73m2 Critically low >=60 [facility] Comment on above: Performed By: #### VALERIO MADRIGAL #### [facility] [address] [place], [place] [address] Dr. Dang Grimm Vital Signs Date Time Vital Sign Value Performing Clinician Facility 06-02-2024 14:33-0400 Body height 154.9 cm Stvz Schedule [facility] 06-02-2024 14:33-0400 Body mass index (BMI) [Ratio] 24 kg/m2 [facility] 06-02-2024 14:33-0400 Body weight 57.61 kg Stvz Schedule [facility] 06-02-2024 14:33-0400 Diastolic blood pressure 63 mm[Hg] [facility] 06-02-2024 14:33-0400 Heart rate 96 /min [facility] 06-02-2024 14:33-0400 Respiratory rate 16 /min Stvz Schedule [facility] 06-02-2024 14:33-0400 SaO2% (BldA) [Mass fraction] 97 % [facility] 06-02-2024 14:33-0400 Systolic blood pressure 132 mm[Hg] [facility] 03-20-2024 09:15-0400 Diastolic blood pressure 62 mm[Hg] MD Patricia Stanford Work Phone: [facility] 03-20-2024 09:15-0400 Heart rate 72 /min MD Patricia Stanford Work Phone: [facility] 03-20-2024 09:15-0400 Respiratory rate 20 /min MD Patricia Stanford Work Phone: [facility] 03-20-2024 09:15-0400 SaO2% (BldA) [Mass fraction] 99 % MD Patricia Stanford Work Phone: [facility] 03-20-2024 09:15-0400 Systolic blood pressure 115 mm[Hg] MD Patricia Stanford Work Phone: [facility] 03-20-2024 07:18-0400 Body height 156.84 cm MD Patricia Stanford Work Phone: [facility] 03-20-2024 07:18-0400 Body weight 55.33 kg MD Patricia Stanford Work Phone: [facility] 03-16-2024 09:04-0400 Body height 156.84 cm MD Patricia Stanford Work Phone: [facility] 03-16-2024 09:04-0400 Body mass index (BMI) [Ratio] 22.8 kg/m2 MD Patricia Stanford Work Phone: [facility] 03-16-2024 09:04-0400 Body weight 56.24 kg MD Patricia Stanford Work Phone: [facility] 03-16-2024 09:04-0400 Diastolic blood pressure 72 mm[Hg] MD Patricia Stanford Work Phone: [facility] 03-16-2024 09:04-0400 Heart rate 81 /min MD Patricia Stanford Work Phone: [facility] 03-16-2024 09:04-0400 Systolic blood pressure 122 mm[Hg] MD Patricia Stanford Work Phone: [facility] 10-02-2023 09:55-0500 Diastolic blood pressure 67 mm[Hg] MD Patricia Stanford Work Phone: [facility] 10-02-2023 09:55-0500 Heart rate 80 /min MD Patricia Stanford Work Phone: [facility] 10-02-2023 09:55-0500 Respiratory rate 16 /min MD Patricia Stanford Work Phone: [facility] 10-02-2023 09:55-0500 SaO2% (BldA) [Mass fraction] 99 % MD Patricia Stanford Work Phone: [facility] 10-02-2023 09:55-0500 Systolic blood pressure 108 mm[Hg] MD Patricia Stanford Work Phone: [facility] 10-02-2023 07:07-0500 Body height 160.02 cm MD Patricia Stanford Work Phone: [facility] 10-02-2023 07:07-0500 Body weight 56.69 kg MD Patricia Stanford Work Phone: [facility] 08-30-2023 10:30-0500 Body height 157.48 cm Patricia Stanford Other [facility] 08-30-2023 10:30-0500 Body mass index (BMI) [Ratio] 21.73 kg/m2 Patricia Stanford Other [facility] [employer] Other 08-30-2023 10:30-0500 Body weight 53.89 kg Patricia Stanford Other [facility] [employer] Other 08-30-2023 10:30-0500 Body weight 53.88 kg MD Patricia Stanford Work Phone: [facility] 08-30-2023 10:30-0500 Diastolic blood pressure 74 mm[Hg] Patricia Stanford Other [facility] 08-30-2023 10:30-0500 Systolic blood pressure 122 mm[Hg] Patricia Stanford Other [facility] 08-21-2023 13:45-0500 Body height 157.48 cm Imad Asaad Other [facility] 08-21-2023 13:45-0500 Body mass index (BMI) [Ratio] 21.58 kg/m2 Imad Asaad Other [facility] [employer] Other 08-21-2023 13:45-0500 Body weight 53.52 kg Imad Asaad Other [facility] 07-15-2023 11:30-0500 Body height 157.48 cm Ptaricia Stanford Other [facility] 07-15-2023 11:30-0500 Body mass index (BMI) [Ratio] 21.73 kg/m2 Patricia Stanford Other [facility] [employer] Other 07-15-2023 11:30-0500 Body weight 53.89 kg Patricia Stanford Other [facility] [employer] Other 07-15-2023 11:30-0500 Body weight 53.88 kg MD Patricia Stanford Work Phone: [facility] 07-15-2023 11:30-0500 Diastolic blood pressure 78 mm[Hg] Patricia Stanford Other [facility] 07-15-2023 11:30-0500 Systolic blood pressure 148 mm[Hg] Patricia Stanford Other [facility] 07-06-2023 09:20-0500 Body height 157.48 cm MD Patricia Stanford Work Phone: [facility] 07-06-2023 09:20-0500 Body weight 55.51 kg MD Patricia Stanford Work Phone: [facility] Encounters Encounter Date Encounter Type Care Provider Facility Start: 06-09-2024 End: 06-09-2024 ambulatory ECHO Z [facility] Start: 06-02-2024 End: 06-06-2024 ambulatory ECHO [facility] Start: 06-02-2024 Encounter for other preprocedural examination ECHO [facility] Start: 06-02-2024 End: 06-06-2024 Patient encounter status Hoa Moody [facility] Start: 06-02-2024 End: 06-06-2024 Subsequent hospital visit by physician Hoa Dias Pat Schedule HOA Dias Pre-Admit Testing Comment on above: Pre-op testing (Prim edil Dx) Start: 04-29-2024 End: 04-29-2024 ambulatory CARI B APLING Not Available Start: 04-15-2024 End: 04-15-2024 ambulatory CARI B APLING Not Available Start: 03-20-2024 Non-patient / Non-visit MD Patricia Stanford Work Phone: [facility] G[facility]ology Work Phone: Start: 03-20-2024 End: 03-20-2024 Admission to same day surgery center MD Patricia Stanford Work Phone: [facility] Work Phone: Start: 03-20-2024 End: 03-20-2024 ambulatory MD Patricia Stanford Work Phone: [facility] Work Phone: Start: 03-18-2024 End: 03-18-2024 ambulatory CARI B APLING Not Available Start: 03-17-2024 Preoperative state MD Patricia bliss Work Phone: [facility] Start: 03-16-2024 End: 03-16-2024 ambulatory CARI B APLING Not Available Start: 03-16-2024 End: 03-16-2024 Patient encounter procedure MD Patricia Stanford Work Phone: [facility] Work Phone: Start: 10-14-2023 End: 10-15-2023 ambulatory Ara Maier MD Facility:[facility] Start: 10-04-2023 End: 10-04-2023 ambulatory Imad Asaad Other [employer] Other Start: 10-04-2023 Telephone encounter Imravindra Torres [facility] Start: 10-02-2023 Non-patient / Non-visit MD Patricia Stanford Work Phone: [facility] Gastroenterology Work Phone: Start: 10-02-2023 End: 10-02-2023 Admission to same day surgery center MD Patricia Stanford Work Phone: [facility] Work Phone: Start: 10-02-2023 End: 10-02-2023 ambulatory MD Patricia Stanford Work Phone: [facility] Work Phone: Start: 09-23-2023 End: 09-23-2023 ambulatory Patricia Stanford Other [employer] Other Start: 09-23-2023 Telephone encounter Patricia Stanford [facility] Start: 09-09-2023 End: 09-09-2023 ambulatory CARI B APLING Not Available Start: 09-04-2023 End: 09-04-2023 ambulatory CARI B APLING Not Available Start: 09-03-2023 End: 09-03-2023 ambulatory Patricia Stanford Other [employer] Other Start: 09-03-2023 Telephone encounter Patricia Stanford [employer] Start: 08-30-2023 End: 08-30-2023 ambulatory Patricia Stanford Other [employer] Other Start: 08-30-2023 Office outpatient visit 15 minutes Patricia Stanford [facility] Start: 08-30-2023 End: 08-30-2023 Patient encounter procedure MD Patricia Stanford Work Phone: [facility]- Start: 08-23-2023 End: 08-23-2023 ambulatory Patricia Stanford Other [employer] Other Start: 08-23-2023 Telephone encounter Patricia Stanford [facility] Start: 08-21-2023 End: 08-21-2023 ambulatory Imad Asaad Other [employer] Other Start: 08-21-2023 Office outpatient ne w 45 minutes Imad Asaad [facility] G[facility] Start: 08-21-2023 End: 08-21-2023 Patient encounter procedure MD Patricia Stanford Work Phone: [facility] G[facility] Work Phone: Start: 07-15-2023 End: 07-15-2023 ambulatory Patricia Stanford Other Work in [facility] [employer] Other Start: 07-15-2023 Office outpatient visit 15 minutes Patricia Stanford [facility] Start: 07-15-2023 Telephone encounter Patricia Stanford [facility] Start: 07-15-2023 End: 07-15-2023 Patient encounter procedure MD Patricia Stanford Work Phone: [facility] Work Phone: Start: 07-06-2023 End: 07-06-2023 Patient encounter procedure MD Patricia Stanford Work Phone: [facility] Work Phone: Start: 05-06-2023 End: 05-07-2023 ambulatory Ara Maier MD Facility:[facility] Start: 04-22-2023 End: 04-23-2023 ambulatory Ara Maier MD Facility:[facility] Start: 10-03-2022 End: 10-05-[address] PATRICIA STANFORD Facility:[facility] Start: 09-27-2022 End: 09-28-[address] MASSIMO MATTHEWS . Facility:[facility] Start: 09-11-2022 End: 09-11-[address] MASSIMO MATTHEWS . Facility:[facility] Start: 09-07-2022 End: 10-17-[address] MASSIMO MATTHEWS . Facility:[facility] Start: 09-04-2022 End: 09-05-[address] MASSIMO MATTHEWS . Facility:[facility] Start: 07-26-2022 Encounter for preprocedural laboratory examination DR MASSIMO MATTHEWS . [facility] Start: 07-24-2022 End: 07-24-[address] [...] 04-20-2022 End: 04-21-2022 ambulatory ARIADNA NOLAN Facility:[facility] Start: 04-09-2022 End: 04-10-[address] PATRICIA STANFORD Facility: Start: 02-27-2022 End: 02-28-2022 ambulatory DEFAULT PHYSICIAN Facility:[facility] Start: 02-22-2022 End: 02-23-[address] MASSIMO MATTHEWS . Facility: Start: 12-06-2021 ambulatory MICHELE SALDAÑA . Facility:[facility] Start: 11-30-2021 End: 12-01-[address] MASSIMO MATTHEWS . Facility: Start: 10-25-2020 Pre-procedure evaluation check Patricia Stanford Other [employer] Other Procedures Date Procedure Procedure Detail Performing Clinician Start: 06-02-2024 Blood count complete auto&auto difrntl wbc Ling Rojas MD Work Phone: Start: 06-02-2024 Ecg routine ecg w/least 12 lds w/i&r Ling Rojas MD Work Phone: Start: 03-20-2024 Colonoscopy MD Patricia Stanford Work Phone: Start: 10-02-2023 Esophagogastroduodenoscopy MD Patricia fox Work Phone: Start: 07-10-2017 Screening mammography Patricia Stanford Other Start: 07-19-2016 General examination of patient Patricia padilla Other Plan of Treatment Date Care Activity Detail Author Start: 04-23-2032 DTaP/Tdap/Td vaccine (2 - Td or Tdap) DTaP/Tdap/Td vaccine (2 - Td or Tdap) [place] [facility] Start: 06-09-2024 End: 06-09-2024 Admission to same day surgery center 06/09/2024 7:30 AM EDT - 06/09/2024 9:30 [place] [address] [place] [address] Echo Ham, DO [address] [place], [place] [id number] RIGHT MINIMALLY INVASIVE SURGERY SACROILIAC JOINT FUSION POSTERIOR WITH SI BONE [facility] [place] Comment on above: RIGHT MINIMALLY INVA SIVE SURGERY SACROILIAC JOINT FUSION POSTERIOR WITH SI BONE Start: 06-09-2024 End: 06-09-2024 Anesthesia consultation 06/09/2024 7:30 [place] [address] [place] [address] Ricco Foote MD [address] [facility] [address] [place] [address] [facility] [place] Start: 06-09-2024 End: 06-09-2024 Arthrodesis sacroiliac joint percutaneous SACROILIAC JOINT FUSION POSTERIOR Chronic right SI joint pain 06/09/2024 7:30 AM EDT [facility] [place] Start: 06-09-2024 Subsequent hospital visit by physician 06/09/2024 7:30 AM ED[place] [address] [place] [address] Echo Ham, DO [address] [place], [place] [id number] [facility] [place] Start: 05-27-2024 Annual Wellness Visi t (Medicare) Annual Wellness Visit (Medicare) [facility] Start: 04-12-2024 COVID-19 Vaccine ( season) COVID-19 Vaccine ( season) [facility] Start: 03-20-2024 [facility] Start: 10-02-2023 [facility] Start: 2001 Screening for osteoporosis DEXA (modify frequency per FRAX score) [facility] Start: 1964 Hepatitis C screening Hepatitis C sc reen [facility] Start: 1958 Depression Screen Depression Screen [facility] Patient Education Hemorrhoids (D C) Know your Meds [facility] Work Phone: Immunizations Immunization Date Immunization Notes Care Provider Fa cility 05-17-2022 zoster vaccine, live Patricia Stanford Other [facility] 04-23-2022 influenza virus vaccine, split virus (incl. purified surface antigen) Patricia Stanford Other Work in [facility] [employer] Other 04-23-2022 influenza virus vaccine, unspecified formulation MD Patricia Stanford Work Phone: [facility] 04-23-2022 pneumococcal polysaccharide vaccine, 23 valent Patricia Stanford Other [facility] 04-23-2022 tetanus toxoid, adsorbed Patricia Stanford Other [facility] 05-25-2021 influenza virus vaccine, split virus (incl. purified surface antigen) Patricia Stanford Other [employer] Other 05-25-2021 influenza virus vaccine, unspecified formulation MD Patricia Stanford Work Phone: [facility] 10-18-2020 COVID-19 Vaccine Moderna - Documentation Purposes Only Patricia Stanford Other [facility] 09-19-2020 COVID-19 Vaccine Moderna - Documentation Purposes Only Patricia Stanford Other [facility] 04-16-2020 influenza virus vaccine, split virus (incl. purified surface antigen) Patricia Stanford Other [facility] [employer] Other 04-16-2020 influenza virus vaccine, unspecified formulation MD Patricia Stanford Work Phone: [facility] 05-12-2019 influenza virus vaccine, split virus (incl. purified surface antigen) Patricia Stanford Other [facility] [employer] Other 05-12-2019 influenza virus vaccine, unspecified formulation MD Patricia Stanford Work Phone: [facility] 04-18-2018 influenza virus vaccine, split virus (incl. purified surface antigen) Patricia Stanford Other [facility] [employer] Other 04-18-2018 influenza virus vaccine, unspecified formulation MD Patricia Stanford Work Phone: [facility] 07-10-2017 pneumococcal conjuga te vaccine, 13 valent Patricia Stanford Other [facility] 04-18-2017 influenza virus vaccine, split virus (incl. purified surface antigen) Patricia Stanford Other [facility] [employer] Other 04-18-2017 influenza virus vaccine, unspecified formulation MD Patricia Stanford Work Phone: [facility] 05-09-2016 influenza virus vaccine, split virus (incl. purified surface antigen) Patricia Stanford Other [facility] [employer] Other 05-09-2016 influenza virus vaccine, unspecified formulation MD Patricia Stanford Work Phone: [facility] 05-27-2013 tetanus and diphther ia toxoids, adsorbed, preservative free, for adult use (5 Lf of tetanus toxoid and 2 Lf of diphtheria toxoid) Patricia Stanford Other [facility] 12-24-2011 pneumococcal polysaccharide vaccine, 23 olga Stanford Other [facility] Payers Date Payer Category Payer Self-pay 2022 Medicare 2022 Unknown 1959 Medicare [id number] 1959 Unknown [id number] 1945 Unknown [id number] 2.16.8 40.1.835313.3.579.2.647 1945 Unknown [id number] 2.16.8 40.1.314841.3.579.2.647 1945 Unknown [id number] 2.16.84 0.1.816031.3.579.2.593 1945 Unknown [id number] 2.16.84 0.1.669452.3.579.2.593 1945 Unknown [id number] 2.16.84 0.1.581719.3.579.2.593 1946 Unknown [id number] 2.16.84 0.1.903719.3.579.2.593 1945 Unknown [id number] 2.16.84 0.1.443767.3.579.2.593 1945 Unknown [id number] 2.16.84 0.1.201598.3.579.2.593 1946 Unknown [id number] 2.16.84 0.1.388797.3.579.2.593 1946 Unknown [id number] 2.16.84 0.1.615232.3.579.2.593 1946 Unknown [id number] 2.16.84 0.1.316465.3.579.2.593 1946 Unknown [id number] 2.16.84 0.1.006001.3.579.2.593 1946 Unknown [id number] 2.16.84 0.1.432729.3.579.2.593 1946 Unknown [id number] 2.16.84 0.1.408689.3.579.2.593 1946 Unknown [id number] 2.16.84 0.1.419073.3.579.2.593 1946 Unknown [id number] 2.16.84 0.1.752614.3.579.2.593 1946 Unknown [id number] 2.16. 840.1.991615.3.579.2.196 1946 Unknown [id number] 2.16. 840.1.361679.3.579.2.196 1946 Unknown [id number] 2.16. 840.1.906627.3.579.2.196 1946 Unknown [id number] 2.16.84 0.1.307917.3.579.2.1259 1946 Unknown [id number] 2.16.84 0.1.251651.3.579.2.1259 1945 Unknown [id number] 2.16.84 0.1.896848.3.579.2.1259 1945 Unknown [id number] 2.16.84 0.1.539714.3.579.2.1259 1945 Unknown [id number] 2.16.84 0.1.518235.3.579.2.1259 1945 Unknown [id number] 2.16.84 0.1.079975.3.579.2.1259 1945 Unknown [id number] 2.16.84 0.1.278730.3.579.2.1259 1945 Unknown [id number] 2.16. 840.1.826477.3.579.2.175 1945 Unknown [id number] 2.16. 840.1.251366.3.579.2.175 Medicare Medicare Outpatient [id number] 9A [id number] Unknown [id number] 2.16.8 40.1.443406.3.579.2.531 Social History Date Type Detail Facility Unknown if ever smoked [facility] [employer] Other Start: 06-02-[address] [facility] [employer] Other Start: 10-02-2023 End: 06-02-2024 Tobacco smoking status NHIS Never smoked tobacco (finding) [facility] Start: 1945 Sex Assigned At Female F [facility] Start: 06-02-2024 Tobacco use and exposure Smokeless tobacco non-user [employer] Start: 06-02-2024 Alcoholic beverage intake Current drinker of alcohol (finding) [employer] Start: 06-02-2024 History of Social function [employer] Physical abuse Denies [employer] Start: 06-02-2024 Alcohol Comment occasioally only [employer] Start: 1945 Sex assigned at Not on file B on [employer] Goals Date Patient Goal Desired Activity /State Clinical Notes 11-30-2021 to 06-02-2024 Discharge Instructions Note Date & Type Note Facility 06-02-2024 Hospital Discharg e instructions Cristopher Escobar RN - 06/02/2024 2:51 PM EDT Preoperative Instructions: Stop eating solid foods at midnight the night prior to your surgery. Stop drinking clear liquids at midnight the night prior to your surgery. Arrive at the surgery center C entrance) on ___13-13-95 by ____0530-0600am . Please stop any blood thinning medications as directed by your surgeon or prescribing physician. Failure to stop certain medications may interfere with your scheduled surgery. These may include: Aspirin, Coumadin, Plavix, NSAIDS (Motrin, Aleve, Advil, Mobic, Celebrex), Eliquis, Pradaxa, Xarelto, Fish oil, and herbal supplements. You may continue the rest of your medications through the night before surgery unless instructed otherwise. Day of surgery please take only the following medication(s) with a small sip of water: Pantoprazole ( and Budesonide) Please shower with provided CHG soap the day before and the morning of of surgery. Reminders: -If you are going home the day of your procedure, you will need a family member or friend to stay during the procedure and drive you home after your procedure. Your bus driver supervisor must be 18 years of age or older and able to sign off on your discharge instructions. -If you are going home the same day of your surgery, someone must remain with you for the first 24 hours after your surgery if you receive sedation or anesthesia. -Please do not wear any jewelery, lotions or body piercing the day of surgery documented in this encounter [facility] 03-20-2024 Procedure note [facility] 10-02-2023 Procedure note [facility] 08-30-2023 Evaluation note Encounter Date Diagnosis Assessment [...] try OTC ones in meantime. Referral placed. [employer] Other 01-10-2024 Evaluation note* Encounter Date Diagnosis Assessment Notes Treatment Notes Treatment Clinical Notes Aug, GERD (gastroesophageal reflux disease) (ICD-10 - K21.9) Aug, Chronic diarrhea (ICD-10 - K52.9) Patient reports that her last colonoscopy was at the [facility] about 11 years ago and that she can not remember who preformed the procedure Aug, Abdominal pain (ICD-10 - R10.9) Aug, Weight loss, unintentional (ICD-10 - R63.4) Aug, Change in bowel habits (ICD-10 - R19.4) Lizbeth is advised to have a colonoscopy ordered, scheduled and prep instructions given today Risks and benefits of procedure explained to patient; patient verbalizes understanding. [employer] Other 12-04-2023 Evaluation note* Encounter Date Diagnosis [...] (ICD-10 - M81.0) Due for Dexa 08/2023 [employer] Other 02-16-2023 NoteCONSULTATION CONSULTATION DATE: 09/27/2022 HISTORY OF PRESENT ILLNESS: This is a 76-year-old female who returns to the clinic status post LES on 09/11/2022. The patient states she was afforded between 50-60% relief. Depending on her physical activity, determines her level of comfort. 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 and lifting greatly aggravate her [...] Patient is in agreement with this plan.[id number] NoteCONSULTATION CONSULTATION DATE: 09/04/2022 HISTORY OF PRESENT [...] patient understands and would like to proceed.[facility] [id number] NoteCONSULTATION CONSULTATION DATE: 07/11/2022 HISTORY OF PRESENT [...] followed up in the clinic post procedure.[facility] [id number] NoteCONSULTATION PROCEDURE DATE: 07/11/2022 PREOPERATIVE DIAGNOSIS: Bilateral [...] will be followed up in the clinic.[facility] 06-06-2022 NoteCONSULTATION CONSULTATION DATE: 06/06/2022 HISTORY [...] pain returning. 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 The patient has not seen a retirement sales consultant in the past. REVIEW OF SYSTEMS, PAST [...] mg q.h.s. A referral to rheumatology near [place] will be sent on her behalf and I highly encouraged her to seek consultation, particularly since she has a familial history of autoimmune diseases. The patient agrees with the plan of care and will be followed up in the office in three months' time. [facility] Signed and Approved by: MICHELE SALDAÑA . 03/02/2022 14:16:00[facility]04-21-2022 NoteCONSULTATION Consultation Date:11/30/2021 PREOPERATIVE DIAGNOSIS: [...] will be followed up in the office. [facility] Signed and Approved by: MICHELE SALDAÑA . 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 Lying down and using heat decrease her pain. Prior to the procedure, she was in a state of acute pain and was placed on a short term course of [place] 5/325 b.i.d. p.r.n. Patient states she only [...] of care and would like to proceed. [facility] Signed and Approved by: MICHELE SALDAÑA . 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 [address] [place] [address] Gastroenterology H&P Signed Patient: Lobo uMrdock MR#: [id number] : 1945 Acct:[id number] Age/Sex: 78 / F Adm Date: 4 Loc: Room: Type: [facility] Attending Dr: Sunny Torres MD Copies [...] signed by Sunny Torres MD> 10/02/23 0854 [facility] Work Phone: History and physical note Author Sunny Torres [facility] March 20, 2024 8:43am Note Date/Time March 20, 2024 8:[address] [facility] [address] [place] [address] Gastroenterology H&P Signed Patient: Lobo Murdock MR#: [id number] : 1945 Acct:[id number] Age/Sex: 78 / F Adm Date: 4 Loc: Room: Type: [facility] Attending Dr: Sunny Torres MD Copies [...] <Electronically signed by Sunny Torres MD> 03/20/24842 [facility] Work Phone: History general Narrative - Reported* [...] shoulder pain 1982 Hospitalization History migraines 1992 [employer] Other Hospital Discharge instructions Additional Instructions DISCHARGE [...] up in the office - Office number [phone]. [facility] Work Phone: Summary Purpose Family History [...] 1 Chronic diarrhea (K5 2.9) Referral Organization [facility] Referring Provider First Name Patricia Referring Provider Last Name Abdoulaye Referring Provider Specialty [facility] Referred Organization [facility] Gastroenterolo gy Referred Address [address] [facility] [address] [place], [place],[address] Referred Provider Specialty Gastroentero logy Referral Priority Routine Reason *FU 09/06 R foot p ain Diagnosis 1 Pain of left great t oe (M79.815) Referral Organization [facility] Referring Provider First Name Patricia Referring Provider Last Name Abdoulaye Referring Provider Specialty [facility] Referred [facility] Referred Provider Odin Chong Referred Address [address] [place], [place],[address] Referred Provider Specialty Podiatry - S urgical [...] and content) DATE CREATED AUTHOR 05/09/2022 [facility] DATE CREATED AUTHOR AUTHOR'S ORGANIZ ATION 11/17/2022 [facility] DATE CREATED AUTHOR AUTHOR'S ORGANIZ ATION 10/18/2023 [facility] DATE CREATED AUTHOR AUTHOR'S ORGANIZ ATION 04/01/2024 [facility] DATE CREATED AUTHOR AUTHOR'S ORGANIZ ATION 05/01/[address] [facility] DATE CREATED AUTHOR AUTHOR'S ORGANIZ ATION 06/14/[address] [facility] REASON FOR VISIT (unrecogniz ed section and content) Stomach/Bowel IssueslabsPATI ENT IS HERE AT THE REQUEST OF DR. 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 sif[facility]r [facility]. provides no warranty or guarantee of the accuracy or completeness of information in this document.
== END 2024-06-26 10:36 | disposition home or self-care (01) ==
LOC: EC 10:36
PROVIDERS: PCP Family Medicine; Visit Provider Orthopaedic Surgery Orthopaedic Surgery of the Spine
DX: Z47.89 Encounter for other orthopedic aftercare (principal); M43.26 Fusion of spine, lumbar region
CPT/HCPCS: 72100

== ENCOUNTER 2024-07-01 13:31 | Outpatient (OUT) | payer MEDICARE, SELFPAY ==
--- OUTSIDE RECORDS SUMMARY | 2024-07-01 13:36 | XMS_ITS | CCD ---
Author Organization [facility] Team Providers Care Research Program Manager Name Role Phone PHYSICIAN, DEFAULT Admitting Unavailable PHYSICIAN, DEFAULT Attending Unavailable ALT-DANIEL, BRINDA Primary Care Unavailable OVIDIOARIADNA LINDSEY Admitting Unavailable OVIDIO, ARIADNA Cook Attending Unavailable ALT-DANIEL, BRINDA Referring Unavailable ALT-DANIEL, BRINDA Primary Care Unavailable MATTHEWS ., DR MASSIMO Cook Attending Unavailable SALDAÑA ., MICHELE Consulting Unavailable STANFORD, DR VIKY Crain Primary Care Unavailable MATTHEWS ., DR MASSIMO Cook Admitting Unavailable MATTHEWS ., DR MASSIMO Cook Attending Unavailable MATTHEWS ., DR MASSIMO Cook Admitting Unavailable STANFORD, DR VIKY Crain Primary Care Unavailable MATTHEWS ., DR MASSIMO Cook Consulting Unavailable MATTHEWS ., DR MASSIMO Cook Attending Unavailable MATTHEWS ., DR MASSIMO Cook Admitting Unavailable MATTHEWS ., DR MASSIMO Cook Consulting Unavailable STANFORD, DR VIKY Crain Primary Care Unavailable DENY JACOBSON Consulting Unavailable MATTHEWS ., DR MASSIMO Cook Attending Unavailable MATTHEWS ., DR MASSIMO Cook Admitting Unavailable SALDAÑA ., MICHELE Consulting Unavailable STANFORD, DR VIKY Crain Primary Care Unavailable MATTHEWS ., DR MASSIMO Cook Consulting Unavailable MATTHEWS ., DR MASSIMO Cook Attending Unavailable MATTHEWS ., DR MASSIMO Cook Admitting Unavailable STANFORD, DR VIKY Crain Primary Care Unavailable MATTHEWS ., DR MASSIMO Cook Attending Unavailable MATTHEWS ., DR MASSIMO Cook Admitting Unavailable SALDAÑA ., MICHELE Consulting Unavailable STANFORD, DR VIKY Crain Primary Care Unavailable MATTHEWS ., DR MASSIMO Cook Attending Unavailable MATTHEWS ., DR MASSIMO Cook Admitting Unavailable SALDAÑA ., MICHELE Consulting Unavailable ABDOULAYE, DR VIKY Crain Primary Care Unavailable SALDAÑA ., MICHELE Attending Unavailable STANFORD, DR VIKY Crain Primary Care Unavailable SALDAÑA ., MICHELE Admitting Unavailable MATTHEWS ., DR MASSIMO Cook Admitting Unavailable STANFORD, DR VIKY Crain Primary Care Unavailable MATTHEWS ., DR MASSIMO Cook Attending Unavailable MATTHEWS ., DR MASSIMO Cook Admitting Unavailable MATTHEWS ., DR MASSIMO Cook Consulting Unavailable STANFORD, DR VIKY Crain Primary Care Unavailable MATTHEWS ., DR MASSIMO Cook Attending Unavailable STANFORD, DR VIKY Crain Consulting Unavailable STANFORD, DR VIKY Crain Attending Unavailable STANFORD, DR VIKY Crain Admitting Unavailable STANFORD, DR VIKY Crain Primary Care Unavailable STANFORD, DR VIKY Crain Primary Care Unavailable STANFORD, DR VIKY Crain Consulting Unavailable STANFORD, DR VIKY Crain Attending Unavailable STANFORD, DR VIKY Crain Admitting Unavailable MATTHEWS ., DR MASSIMO Cook Attending Unavailable MATTHEWS ., DR MASSIMO Cook Admitting Unavailable PIPER .MICHELE Consulting Unavailable BALL, DR FLANAGAN Primary Care Unavailable MATTHEWS ., DR MASSIMO Cook Admitting Unavailable MATTHEWS ., DR MASSIMO Cook Attending Unavailable STANFORD, DR VIKY Crain Primary Care Unavailable MATTHEWS ., DR MASSIMO Cook Consulting Unavailable Viky Stanford Unavailable Asaad, Imad Unavailable MD Viky Stanford Primary Care Provider [phone] MD Melissa Imravindra Attending Provider [phone] Darrion DIAZ, Andpietro Loomis Attending Unavailable Darrion DIAZ, Andrius Vytcallie Attending Unavailable Darrion DIAZ, Rivkarius Vladislav Attending Unavailable MD Viky Stanford Primary Care Provider MD Melissa Imravindra Attending Provider [phone] Viky Stanford Primary Care Unavailable Asaad, Imad Admitting Unavailable Asaad, Imad Attending Unavailable Viky Stanford Primary Care Unavailable Asaad, Imad Admitting Unavailable Asaad, Imad Attending Unavailable APLING, CARI B Attending Unavailable APLING, CARI B Attending Unavailable APLING, CARI B Attending Unavailable APLING, CARI B Attending Unavailable APLING, CARI B Attending Unavailable APLING, ACRI B Referring Unavailable APLING, CARI B Attending Unavailable Viky Stanford MD Primary Care Provider HAM, ECHO Mir Admitting Unavailabl e HAM, ECHO Mir Attending Unavailabl e STANFORDVIKY Primary Care Unavailable HAM, ECHO Mir Referring Unavailabl e STANFORDVIKY Primary Care Unavailable HAM, ECHO Mir Attending Unavailabl e HAM, ECHO Mir Referring Unavailabl e STANFORDVIKY Primary Care Unavailable Allergies Allergy Classification Reported Allergen(s) Allergy Type Date of Onset Reaction(s) Facility (8 sources) Calcitonin ([place]) *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 Propensity to adverse reactions Comment:severe weakness Qulsar Other (3 sources) calcitonin; Translations: [calcitonin] Propensity to adverse reactions 4 Other (See Comments) [facility] (1 source) Fish Oils Drug Allergy 4 Other (See Comments) [facility] Medications Current Medications Medication Drug Class(es) Dates Sig (Normalized) Sig (Original) baclofen 10 mg oral tablet (10 sources) gamma-Aminobutyric Acid-ergic Agonist Start: 10-25-2020 take 10 mg by mouth once daily Baclofen Active 10 MG PO Daily October 02, 2023 1:00am budesonide 3 mg delayed release oral capsule (4 sources) Corticosteroid Start: 10-04-2023 End: 03-06-2024 Budesonide [...] Active Subcutaneous for 0 *Pick strength-form from [employer] for eRX* Aug, Active diclofenac sodium 50 [...] day for 0 days *Pick strength-form from [employer] for eRX* Oct, Active magnesium oxide 400 mg oral tablet (1 source) Start: 03-13-2024 take 1 tablet by mouth once daily Magnesium Oxide Active 400 MG PO Daily March 13, 2024 12:00am FreeTextSi tablet with a meal Orally Once a day; Note: Source Status: Taking*Pick strength-form from [employer] for eRX*; Provider: Abdoulaye Gomez ( ) Multiple Vitamin (8 sources) take 1 tablet by mouth once daily Multiple Vitamin 1 tablet Orally Once a day Active Ctdncpef-Zbfj-Pg-Ca lcium-Mins (Daily Multiple For Women) 18 mg iron-400 mcg-500 mg Ca tablet (1 source) Start: 03-13-2024 take 1 tablet by mouth once daily Tkzvkpsw-Liku-Vv-C alcium-Mins (Daily Multiple For Women) 18 mg iron-400 mcg-500 mg Ca tablet Active 1 TAB PO Daily March 13, 2024 12:00am pantoprazole 40 mg delayed release oral tablet (15 sources) Proton Pump Inhibitor Start: 07-15-2023 End: 10-04-2023 take 40 mg by mouth once daily Pantoprazole Active 40 MG PO Daily 90 February 23rd, 2024 3:40pm take 40 mg by mouth once daily P ANTOPRAZOLE SODIUM PO Take 40 mg by mouth daily Active tiZANidine 2 mg oral tablet (1 source) Central alpha-2 Adrenergic Agonist Start: 06-09-2024 take 1 tablet by mouth three times daily as needed for pain tiZANidine (ZANAFLEX) 2 MG tablet Take 1 tablet by mouth 3 times daily as needed (pain/muscle spasm) 30 tablet 06/09/2024 Active traMADol hydrochloride 50 mg oral tablet [...] Abdoulaye Crain take 1 tablet by brijesh th four [...] Other aftercare (8 sources) 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; Translations: [correction (current) use of bisphosphonates] Episodic Other connective [...] Spondylosis; intervertebral disc disorders; other back problems (20 sources) Other spondylosis with radiculopathy, lumbar region; [...] Test Name Value Interpretation Reference Range Facility CT PELVIS WO CONTRASTon 06-12 CT PELVIS WO CONTRAST EXAMINATION: CT OF THE PELVIS WITHOUT CONTRAST 06/26/2024 5:41 pm TECHNIQUE: CT of the pelvis was performed without the administration of intravenous contrast. Multiplanar reformatted images are provided for review. Adjustment of mA and/or kV according to patient size was utilized. Automated exposure control, iterative reconstruction, and/or weight based adjustment of the mA/kV was utilized to reduce the radiation dose to as low as reasonably achievable. COMPARISON: None. HISTORY ORDERING SYSTEM PROVIDED HISTORY: Sacroiliitis (HCC) TECHNOLOGIST PROVIDED HISTORY: BACK PAIN Is a 3D rendering on an independant workstation needed?->No Reason for Exam: BACK PAIN, Sacroiliitis (HCC) Additional signs and symptoms: Pt. states back pain, sacral pain since SI joint fusion 06/09/24 FINDINGS: Bones: Previous posterior fixation of the lumbar spine. Posterior osseous fusion. Vacuum disc at L5-S1. Anterolisthesis L4-5. Foraminal narrowing at L4-5. Laminectomy at L5-S1. Large amount of soft tissue thickening. Fusion at the right SI joint. Mild lucency around the the fixation. Mild widening of the SI joint this is subtle. Negative for osseous erosions. Minimal sclerosis at the left SI joint. There is no osseous bridging of the right SI joint. Osteitis pubis condensans. No widening of the SI joints. Mild osteoarthritic change of the hips bilaterally. No lytic lesions. Soft Tissue: Negative for effusion. Dense calcifications of the uterus. No free fluid in the pelvis. No hemorrhage or edema along the piriformis muscles. No hematoma within the buttocks. Edema in the subcutaneous tissues of the right buttock related to the previous surgery. Joint: Osteoarthritis IMPRESSION: Fusion at the right SI joint. No osseous fusion at this time. Interpreted by: Quyen Ruffin MD Signed by: Quyen Ruffin MD 06/28/24 Final result Normal [facility] CT Pelvis WO contraston 06-12 Fusion at the right SI joint. No osseous fusion at this time. [facility] RIS CONSOLIDATED EXAMINATION: CT OF THE PELVIS WITHOUT CONTRAST 06/26/2024 5:41 pm TECHNIQUE: CT of the pelvis was performed without the administration of intravenous contrast. Multiplanar reformatted images are provided for review. Adjustment of mA and/or kV according to patient size was utilized. Automated exposure control, iterative reconstruction, and/or weight based adjustment of the mA/kV was utilized to reduce the radiation dose to as low as reasonably achievable. COMPARISON: None. HISTORY ORDERING SYSTEM PROVIDED HISTORY: Sacroiliitis (HCC) TECHNOLOGIST PROVIDED HISTORY: BACK PAIN Is a 3D rendering on an independant workstation needed?->No Reason for Exam: BACK PAIN, Sacroiliitis (HCC) Additional signs and symptoms: Pt. states back pain, sacral pain since SI joint fusion 06/09/24 FINDINGS: Bones: Previous posterior fixation of the lumbar spine. Posterior osseous fusion. Vacuum disc at L5-S1. Anterolisthesis L4-5. Foraminal narrowing at L4-5. Laminectomy at L5-S1. Large amount of soft tissue thickening. Fusion at the right SI joint. Mild lucency around the the fixation. Mild widening of the SI joint this is subtle. Negative for osseous erosions. Minimal sclerosis at the left SI joint. There is no osseous bridging of the right SI joint. Osteitis pubis condensans. No widening of the SI joints. Mild osteoarthritic change of the hips bilaterally. No lytic lesions. Soft Tissue: Negative for effusion. Dense calcifications of the uterus. No free fluid in the pelvis. No hemorrhage or edema along the piriformis muscles. No hematoma within the buttocks. Edema in the subcutaneous tissues of the right buttock related to the previous surgery. Joint: Osteoarthritis [facility] RIS Quyen Chen MD - 06/28/2024 EXAMINATION: CT OF THE PELVIS WITHOUT CONTRAST 06/26/2024 5:41 pm TECHNIQUE: CT of the pelvis was performed without the administration of intravenous contrast. Multiplanar reformatted images are provided for review. Adjustment of mA and/or kV according to patient size was utilized. Automated exposure control, iterative reconstruction, and/or weight based adjustment of the mA/kV was utilized to reduce the radiation dose to as low as reasonably achievable. COMPARISON: None. HISTORY ORDERING SYSTEM PROVIDED HISTORY: Sacroiliitis (FORMERLY [facility]) TECHNOLOGIST PROVIDED HISTORY: BACK PAIN Is a 3D rendering on an independant workstation needed?->No Reason for Exam: BACK PAIN, Sacroiliitis (FORMERLY [facility]) Additional signs and symptoms: Pt. states back pain, sacral pain since SI joint fusion 06/09/24 FINDINGS: Bones: Previous posterior fixation of the lumbar spine. Posterior osseous fusion. Vacuum disc at L5-S1. Anterolisthesis L4-5. Foraminal narrowing at L4-5. Laminectomy at L5-S1. Large amount of soft tissue thickening. Fusion at the right SI joint. Mild lucency around the the fixation. Mild widening of the SI joint this is subtle. Negative for osseous erosions. Minimal sclerosis at the left SI joint. There is no osseous bridging of the right SI joint. Osteitis pubis condensans. No widening of the SI joints. Mild osteoarthritic change of the hips bilaterally. No lytic lesions. Soft Tissue: Negative for effusion. Dense calcifications of the uterus. No free fluid in the pelvis. No hemorrhage or edema along the piriformis muscles. No hematoma within the buttocks. Edema in the subcutaneous tissues of the right buttock related to the previous surgery. Joint: Osteoarthritis IMPRESSION: Fusion at the right SI joint. No osseous fusion at this time. [facility] CT Pelvis WO contrastOrdered By: Quyen Ruffin on 06-28-2024 [employer] Work Phone: CT Pelvis WO contraston 06-12 Radiology Study observation (narrative) [employer] FLUORO FOR SURGICAL PROCEDUR ESon 06-09-2024 FLUORO FOR SURGICAL PROCEDURES Radiology exam is complete. No Radiologist dictation. Please follow up with ordering provider. Final result Normal [facility] EKG 12 LeadOrdered By: Carter Machuca on 06-03-2024 Atrial Rate 87 BPM [employer] Work Phone: P [place] 32 degrees [employer] Work Phone: P-R Interval 136 ms [employer] Work Phone: Q-T Interval 350 ms [employer] Work Phone: QRS Duration 74 ms [employer] Work Phone: QTc Calculation (Bazett) 421 ms [employer] Work Phone: R [place] 12 degrees [employer] Work Phone: T [place] 45 degrees [employer] Work Phone: Ventricular Rate 87 BPM [employer] Work Phone: [employer] Work Phone: EKG 12 Leadon 06-03-2024 Normal sinus rhythm Normal ECG No previous ECGs available [facility] Carter Urrutia DO - 06/03/2024 Normal sinus rhythm Normal ECG No previous ECGs available [employer] CBC with Auto Differentialon 06-02-2024 Basophils (Bld) [#/Vol] 0.06 10*3/uL [employer] Basophils/100 WBC (Bld) 1 % 0 - 2 % [employer] Eosinophils (Bld) [#/Vol] 0.09 10*3/uL [facility] Eosinophils/100 WBC (Bld) 1 % 1 - 4 % [facility] Erythrocyte distribution width (RBC) [Ratio] 12.5 % 11.8 - 14.4 % [facility] Hematocrit (Bld) [Volume fraction] 41.5 % 36.3 - 47.1 % [facility] Hemoglobin (Bld) [Mass/Vol] 13.2 g/dL 11.9 - 15.1 g/dL [facility] Immature granulocytes (Bld) [#/Vol] 0.05 10*3/uL [facility] Immature granulocytes/100 WBC (Bld) 1 % High 0 [facility] Interpretation and review of laboratory results Abnormal [facility] Lymphocytes/100 WBC (Bld) 20 % Low 24 - 43 % [facility] Lymphocytes/100 WBC (Bld) 1.62 % [facility] MCH (RBC) [Entitic mass] 31.1 pg 25.2 - 33.5 pg [facility] MCHC (RBC) [Mass/Vol] 31.8 g/dL 28.4 - 34.8 g/dL [facility] MCV (RBC) [Entitic vol] 97.6 fL 82.6 - 102.9 fL [facility] Monocytes/100 WBC (Bld) 10 % 3 - 12 % [facility] Monocytes/100 WBC (Bld) 0.80 % [facility] Neutrophils/100 WBC (Bld) 67 % High 36 - 65 % [facility] Nucleated RBC/100 WBC (Bld) [Ratio] 0.0 % 0.0 per 100 WBC [facility] Platelet mean volume (Bld) [Entitic vol] 10.0 fL 8.1 - 13.5 fL [facility] Platelets (Bld) [#/Vol] 247 10*3/uL [facility] RBC (Bld) [#/Vol] 4.25 10*6/uL 3.95 - 5.1 1 m/uL [facility] Segmented neutrophils/100 WBC (Bld) 5.57 % [facility] WBC other (Bld) [#/Vol] 8.2 [facility] CBC with Diffon 06-02-2024 Abs. Basophil 0.06 k/uL Normal 0.00-0.20 [facility] Comment on above: Performed By: #### C DP #### [address] [address] [employer]: Arpit Cruz MD Abs.Imm.Granulocyte 0.05 k/uL Normal 0.00-0.30 [facility] Comment on above: Performed By: #### C DP #### [place] [address] [employer]: Arpit Cruz MD Abs.Neutrophil (Seg) 5.57 k/uL Normal 1.50-8.10 [facility] Comment on above: Performed By: #### C DP #### [place] [address] [employer]: Arpit Cruz MD Basophils/100 WBC (Bld) 1 % Normal 0-2 [facility] Comment on above: Performed By: #### C DP #### [address] [address] [employer]: Arpit Cruz MD Eosinophils (Bld) [#/Vol] 0.09 10*3/uL Normal 0.00-0.44 [facility] Comment on above: Performed By: #### C DP #### [address] [address] [employer]: Arpit Cruz MD Eosinophils/100 WBC (Bld) 1 % Normal 1-4 [facility] Comment on above: Performed By: #### C DP #### [address] [address] [employer]: Arpit Cruz MD Erythrocyte distribution width (RBC) [Ratio] 12.5 % Normal 11.8-14.4 [facility] Comment on above: Performed By: #### C DP #### [address] [address] [employer]: Arpit Cruz MD Hematocrit (Bld) [Volume fraction] 41.5 % Normal 36.3-47.1 [facility] Comment on above: Performed By: #### C DP #### [address] [address] [employer]: Arpit Cruz MD Hemoglobin (Bld) [Mass/Vol] 13.2 g/dL Normal 11.9-15.1 [facility] Comment on above: Performed By: #### C DP #### [address] [address] [employer]: Arpit Cruz MD Immature granulocytes/100 WBC (Bld) 1 % High 0 [facility] Comment on above: Performed By: #### C DP #### [address] [address] [employer]: Arpit Cruz MD Lymphocytes (Bld) [#/Vol] 1.62 10*3/uL Normal 1.10-3.70 [facility] Comment on above: Performed By: #### C DP #### [address] [address] [employer]: Arpit Cruz MD Lymphocytes/100 WBC (Bld) 20 % Low 24-43 [facility] Comment on above: Performed By: #### C DP #### [address] [address] [employer]: Arpit Cruz MD MCH (RBC) [Entitic mass] 31.1 pg Normal 25.2-33.5 [facility] Comment on above: Performed By: #### C DP #### [address] [address] [employer]: Arpit Cruz MD MCHC (RBC) [Mass/Vol] 31.8 g/dL Normal 28.4-34.8 [facility] Comment on above: Performed By: #### C DP #### [address] [address] [employer]: Arpit Cruz MD MCV (RBC) [Entitic vol] 97.6 fL Normal 82.6-102.9 [facility] Comment on above: Performed By: #### C DP #### [address] [address] [employer]: Arpit Cruz MD Monocytes (Bld) [#/Vol] 0.80 10*3/uL Normal 0.10-1.20 [facility] Comment on above: Performed By: #### C DP #### [address] [address] [employer]: Arpit Cruz MD Monocytes/100 WBC (Bld) 10 % Normal 3-12 [facility] Comment on above: Performed By: #### C DP #### [address] [address] [employer]: Arpit Cruz MD Neutrophil (Seg) 67 % High 36-65 [facility] Comment on above: Performed By: #### C DP #### [address] [address] [employer]: Arpit Cruz MD NRBC Automated 0.0 per 100 WBC Normal 0.0 [facility] Comment on above: Performed By: #### C DP #### [address] [address] [employer]: Arpit Cruz MD Platelet mean volume (Bld) [Entitic vol] 10.0 fL Normal 8.1-13.5 [facility] Comment on above: Performed By: #### C DP #### [facility] [address] [place] [address] [employer]: Arpit Cruz MD Platelets (Bld) [#/Vol] 247 10*3/uL Normal 138-453 [facility] Comment on above: Performed By: #### C DP #### [facility] [address] [place] [address] [employer]: Arpit Cruz MD RBC (Bld) [#/Vol] 4.25 10*6/uL Normal 3.95-5.11 [facility] Comment on above: Performed By: #### C DP #### [facility] [address] [place] [address] [employer]: Arpit Cruz MD WBC (Bld) [#/Vol] 8.2 10*3/uL Normal 3.5-11.3 [facility] Comment on above: Performed By: #### C DP #### [facility] [address] [place] [address] [employer]: Arpit Cruz MD Pathology Request for Lab Co rpon 03-20-2024 Pathology Request for Lab Dorothy Normal [facility] Comment on above: Order Comment: PATHO LOGY GI SPECIMEN Result Comment: See report. Scanned copy available in EMR. PERFORMED BY: [place] [address] PATHOLOGIST MUSEUM ASSISTANT HELENE LEON M.D. Performed By: #### P ATH TO [facility] #### [address] 10-02-2023 L Specimen: [id number] Received: 10/02/23 Status: OJ Yuniel Num: [id number] Spec Type: Surgical Subm Dr: Sunny Torres MD Tissues: A GASTRIC FOR HP (GASTRIC BX R/O H.PYLORI) B Colon Biopsy (RANDOM COLON BX R/O MICROSCO) Procedures: HE/4, Gross/Micro L4/2, H PYLORI Age/ Patient Sex Location Account Attending Physician Arianne Murdock 78/F [id number] Sunny Torres MD SPEC NUM: [id number] RECD: 10/02/23 STATUS: OJ BRICE NUM: [id number] TEO: 10/02/23 [facility] DR: Sunny Torres MD ENTERED: 10/02/23-[address] [facility] [address]: SPEC TYPE: Surgical DEPT: [...] patient's name, date of and random colon ---- Specimen: [id number] Received: 10/02/23 Status: OJ Laraedwige Num: [id number] Spec Type: Surgical Subm Dr: Sunny Torres MD Tissues: A GASTRIC FOR HP (GASTRIC BX R/O H.PYLORI) B Colon Biopsy (RANDOM COLON BX R/O MICROSCO) Procedures: HE/4, Gross/Micro L4/2, H PYLORI ---- Patient: Arianne Murdock [id number] (Continued) ---- Specimen: [id number] Received: 10/02/23 (Continued) Gross Description (Continued) Signed (signature on file) Patito Grimm MD 10/03/23 1430 ---- Specimen: [id number] Received: 10/02/23 Status: OJ Brice Num: [id number] Spec Type: Surgical Subm Dr: Sunny Torres MD Tissues: A GASTRIC FOR HP (GASTRIC BX R/O H.PYLORI) B Colon Biopsy (RANDOM COLON BX R/O MICROSCO) Procedures: HE/4, Gross/Micro L4/2, H PYLORI ---- Patient: Arianne Murdock [id number] (Continued) ---- Specimen: [id number] Received: 10/02/23 (Continued) Gross Description (Continued) biopsy are 2 galvan translucent soft tissue fragments, 0.3 and 0.6 cm in greatest dimensions. Entirely submitted in one cassette labeled B1. CPT Codes [id number] ---- ---- Specimen: [id number] Received: 10/02/23 Status: OJ Brice Num: [id number] Spec Type: Surgical Subm Dr: Sunny Torres MD Tissues: A GASTRIC FOR HP (GASTRIC BX R/O H.PYLORI) B Colon Biopsy (RANDOM COLON BX R/O MICROSCO) Procedures: HE/4, Gross/Micro L4/2, H PYLORI ---- Patient: Arianne Murdock [id number] (Continued) ---- Signed (signature on file) Chin-Truong Grimm MD 10/03/23 1430 Normal [facility] CALCIUMon 10-03-2022 Calcium [Mass/Vol] 8.9 mg/dL Normal 8.5-10.1 [facility] Comment on above: Performed By: #### VALERIO MADRIGAL #### [facility] [address] [place] [address] Dr. Dang Grimm CREATININEon 10-03-2022 Creatinine [Mass/Vol] 1.03 mg/dL Critically high 0.55-1.02 [facility] Comment on above: Performed By: #### VALERIO MADRIGAL #### [facility] [address] [place] [address] Dr. Dang Grimm EGFR-AF MONEGASQUE >60 Normal >=60 [facility] Comment on above: Performed By: ###VALERIO NIEVES #### [facility] [address] [place] [address] Dr. Dang Grimm EGFR-NON AF MONEGASQUE 52 mL/min/1.73m2 Critically low >=60 [facility] Comment on above: Performed By: ###VALERIO NIEVES #### [facility] [address] [place] [address] Dr. Dang Grimm Covid-19 PCR (CVDTB)on SARS-CoV-2 (COVID-19) RNA GENARO+probe Ql (Unsp spec) Not detected Normal NOT DETECTED [facility] Comment on above: Result Comment: This test is not yet approved or cleared by the [place] FDA. When there are no FDA-approved or cleared tests available, and other criteria are met, FDA can make tests available under an emergency access mechanism called an Emergency Use Authorization (EUA). The EUA for this test is supported by the [place] of Health and Human Service's (HHS's) declaration [...] SARS-CoV-2. Performed By: #### C VDTB #### [facility] [address] [place] [address] Dr. Dang Grimm ANAon 04-20-2022 OCTAVIA PATTERN SPECKLED Normal [facility] Comment on above: Result Comment: The [...] By: #### 1 0196 #### [facility] [address] [place] [address], [facility] OCTAVIA SCREEN 1:40 Normal <1:40,1:40 [facility] Comment on above: Result Comment: Test performed using MELCHOR IFA OCTAVIA Hep-2 Test, a pre-standardized assay designed for the qualitative and semi-quantitative detection of antinuclear antibodies. Performed By: #### 1 0196 #### [facility] [address] [facility]. [address] C REACTIVE PROTEINon CRP [Mass/Vol] 2.5 mg/L Normal 0.0-7.0 [facility] Comment on above: Performed By: #### 6 1405, 10761 #### [facility] [address] [facility]. [address] CBC COMPLETE BLOOD COUNTon 0 04-20-2022 Erythrocyte distribution width (RBC) [Ratio] 12.4 % Normal 11.5-15.0 [facility] Comment on above: Performed By: #### 5 6506, 68786 #### [facility] [address] [facility]. [address] Hematocrit (Bld) [Volume fraction] 41.6 % Normal 36.0-45.0 [facility] Comment on above: Performed By: #### 5 6506, 22913 #### [facility] [address] [facility] [place] [address], [facility] Hemoglobin (Bld) [Mass/Vol] 13.7 g/dL Normal 12.0-15.0 [facility] Comment on above: Performed By: #### 5 6506, 73139 #### [facility] [address] [facility] [place] [address], [facility] MCH (RBC) [Entitic mass] 31.4 pg Normal 27.0-33.0 [facility] Comment on above: Performed By: #### 5 6506, 07595 #### [facility] [address] [facility] [place] [address], [facility] MCHC (RBC) [Mass/Vol] 32.9 g/dL Normal 32.0-35.0 [facility] Comment on above: Performed By: #### 5 6506, 17510 #### [facility] [address] [facility] [place] [address], [facility] MCV (RBC) [Entitic vol] 95.2 fL Normal 82.0-98.0 [facility] Comment on above: Performed By: #### 5 650, 21900 #### [facility] [address] [facility] [place] [address], [facility] Nucleated RBC/100 WBC (Bld) [Ratio] 0 % Normal 0-0 [facility] Comment on above: Performed By: #### 5 6506, 07276 #### [facility] [address] [facility] [place] [address], [facility] PLAT CNT 248 10*3/uL Normal 150-400 [facility] Comment on above: Performed By: #### 5 6506, 64774 #### [facility] [address] [place] [address], [facility] RBC (Bld) [#/Vol] 4.37 10*6/uL Normal 3.80-5.00 [facility] Comment on above: Performed By: #### 5 6506, 28892 #### [facility] [address] [facility] [place] [address], [facility] WBC (Bld) [#/Vol] 5.54 10*3/uL Normal 4.00-10.60 [facility] Comment on above: Performed By: #### 5 6506, 83976 #### [facility] [address] [facility]22 CERVICAL SPINE 4 OR 5 VIEWS [facility] Department of Radiology [address] [place] [address] [id number] ======== Patient Name: ARIANNE MURDOCK : 1945 Sex: F Age: Race: White Pt. Location: [facility] Patient Status: O Ordered Date: 04/20/2022 10:50:00 AM Completed Date: 04/20/2022 11:42 AM Requesting Provider: MICHAEL HAHN Attending Provider: ARIADNA NOLAN Report Copy To: Signs & Symptoms: M54.2 Cervicalgia I10 History: Chloe Comments: Views (X-RAY, CERVICAL SPINE): AP, Lateral, Odontoid, Flexion, Extension Exam: CERVICAL SPINE 4 OR 5 VIEWS ======== CERVICAL SPINE 4 OR 5 VIEWS 04/20/2022 [...] C3 Electronically signed: Christian Upton. Transcribed by: [email or web address], User Resident: Electronically Signed by: CHRISTIAN UPTON @ 04/20/2022 02:33 PM Normal [facility] Comment on above: Order Comment: Views (X-RAY, CERVICAL SPINE): AP, Lateral, Odontoid, Flexion, Extension COMP METABOLIC PANELon 04-20 Albumin [Mass/Vol] 4.1 g/dL Normal 3.5-5.7 [facility] Comment on above: Performed By: #### 3 5515, 92130, 52630 #### [facility] [address] [place] [address], [place] ALKALINE PHOSPH 63 IU/L Normal 34-104 [facility] Comment on above: Performed By: #### 3 5515, 61437, 78242 #### [facility] [address] [place] [address], [place] ALT [Catalytic activity/Vol] 15 U/L Normal 7-52 [facility] Comment on above: Performed By: #### 3 5515, 24100, 53515 #### [facility] [address] [place] [address], [place] AST [Catalytic activity/Vol] 22 U/L Normal 13-39 [facility] Comment on above: Performed By: #### 3 5515, 81553, 75505 #### [facility] [address] [place] [address], [place] Bilirubin [Mass/Vol] 0.5 mg/dL Normal 0.3-1.0 [facility] Comment on above: Performed By: #### 3 5515, 74501, 95761 #### [facility] [address] [place] [address], [place] Calcium [Mass/Vol] 10.2 mg/dL Normal 8.6-10.3 [facility] Comment on above: Performed By: #### 3 5515, 22446, 65639 #### [facility] [address] [place] [address], [place] Chloride [Moles/Vol] 105 mmol/L Normal 98-107 [facility] Comment on above: Performed By: #### 3 5515, 94104, 97645 #### [facility] [address] [place] [address], [place] CO2 [Moles/Vol] 25 mmol/L Normal 21-31 [facility] Comment on above: Performed By: #### 3 5515, 86944, 71990 #### [facility] [address] [place] [address], [place] Creatinine [Mass/Vol] 0.95 mg/dL Normal 0.60-1.20 [facility] Comment on above: Performed By: #### 3 5515, 07735, 07859 #### [facility] [address] [place] [address], [place] GFR/1.73 sq M.predicted among non-blacks MDRD (S/P/Bld) [Vol rate/Area] mL/min/{1.73_m2} Normal >60 [facility] Comment on above: Result Comment: [facility]'s estimated glomerular filtration rate (eGFR) will [...] of individuals. Performed By: #### 3 5515, 96884, 68667 #### [facility] [address] [place] [address], [place] Glucose [Mass/Vol] 88 mg/dL Normal 70-100 [facility] Comment on above: Performed By: #### 3 5515, 64655, 21854 #### [facility] [address] [place] [address], [place] Potassium [Moles/Vol] 4.5 mmol/L Normal 3.5-5.1 [facility] Comment on above: Performed By: #### 3 5515, 28339, 21665 #### [facility] [address] Protein [Mass/Vol] 6.8 g/dL Normal 6.0-8.3 [facility] Comment on above: Performed By: #### 3 5515, 29842, 03701 #### [facility] [address] Sodium [Moles/Vol] 138 mmol/L Normal 136-145 [facility] Comment on above: Performed By: #### 3 5515, 57697, 64835 #### [facility] [address] [place] [address], [facility] Urea nitrogen [Mass/Vol] 29 mg/dL High 7-25 [facility] Comment on above: Performed By: #### 3 5515, 64185, 73721 #### [facility] [address] CYCLIC [place] PEPTIDE [place] [id number] 04-20-2022 CYCLIC CIT PEP 2 Units Normal 0-19 [facility] Comment on above: Result Comment: INTE [...] be monitored and testing repeated. Performed By: [facility] [address] [place] [address] Desktop Publisher: Brett Tamez MD, PhD FERRITINon 04-20-2022 Ferritin [Mass/Vol] 43 ng/mL Normal 11-307 [facility] Comment on above: Performed By: #### 3 5515, 17672, 69780 #### [address] HAND LEFT 3 VWSon 04-20-2022 HAND LEFT 3 VWS [facility] Department of Radiology [address] [place] [address] ======== Patient Name: ARIANNE MURDOCK : 1945 Sex: F Age: Race: White Pt. Location: [facility] Patient Status: O Ordered Date: 04/20/2022 10:50:00 AM Completed Date: 04/20/2022 11:42 AM Requesting Provider: MICHAEL HAHN Attending Provider: ARIADNA NOLAN Report Copy To: Signs & Symptoms: M79.641 Pain in right hand I10 History: Chloe Comments: Evaluate Exam: HAND LEFT 3 VWS ======== HAND LEFT 3 VWS 04/20/2022 11:42 AM [...] report. Electronically signed: Chelita Lazcano. Transcribed by: [email or web address], User Resident: NIRMALA MONGE Electronically Signed by: CHELITA LAZCANO @ 04/20/2022 01:29 PM I personally read this/these film(s) with this resident Normal [facility] Comment on above: Order Comment: Evalu ate HAND RIGHT 3 [facility] 2 HAND RIGHT 3 [facility] Department of Radiology [address] [place] [id number] ======== Patient Name: ARIANNE MURDOCK : 1945 Sex: F Age: Race: White Pt. Location: [facility] Patient Status: O Ordered Date: 04/20/2022 10:50:00 AM Completed Date: 04/20/2022 11:42 AM Requesting Provider: MICHAEL HAHN Attending Provider: ARIADNA NOLAN Report Copy To: Signs & Symptoms: M79.641 Pain in right hand I10 History: Chloe Comments: Evaluate Exam: HAND RIGHT 3 [facility] ======== HAND RIGHT 3 VWS 04/20/2022 11:42 AM [...] report. Electronically signed: Chelita Lazcano. Transcribed by: [email or web address], User Resident: NIRMALA MONGE Electronically Signed by: CHELITA LAZCANO @ 04/20/2022 01:43 PM I personally read this/these film(s) with this resident Normal [facility] Comment on above: Order Comment: Evalu ate RHEUMATOID FACTOR SERUMon RA <20 Normal 0-20 [facility] Comment on above: Performed By: #### 6 1405, 35020 #### [facility] [address] [facility] [place] [address], [facility] SEDIMENTATION RATEon 022 SED RATE 38 mm/hr High 0-20 [facility] Comment on above: Performed By: #### 5 1686, 99979 ####[facility] [facility] [place] [address], [facility] TIBC- INCLUDES IRONon 2021 FE SATURATION 30 % Normal 20-50 [facility] Comment on above: Performed By: #### 3 0115, 93544, 63962 #### [facility] [address] [place] [address], [facility] Iron [Mass/Vol] 115 ug/dL Normal 50-212 [facility] Comment on above: Performed By: #### 3 5515, 63176, 25595 #### [facility] [address] [place] [address], [facility] TIBC 378 mcg/dL Normal 250-450 [facility] Comment on above: Performed By: #### 3 5515, 82256, 98253 #### [facility] [address] [place] [address], [facility] UIBC 263 mcg/dL Normal 155-355 [facility] Comment on above: Performed By: #### 3 5515, 62160, 71820 #### [facility] [address] [facility] [place] [id number], [facility] CALCIUMon 04-09-2022 Calcium [Mass/Vol] 9.6 mg/dL Normal 8.5-10.1 [facility] Comment on above: Performed By: #### VALERIO MADRIGAL #### [facility] [address] [address] [address] Dang Grimm CREATININEon 04-09-2022 Creatinine [Mass/Vol] 1.07 mg/dL Critically high 0.55-1.02 [facility] Comment on above: Performed By: #### VALERIO MADRIGAL #### [facility] [address] [address] [address] Dang Grimm EGFR-AF MONEGASQUE >60 Normal >=60 [facility] Comment on above: Performed By: #### VALERIO MADRIGAL #### [facility] [address] [address] [address] Dang Grimm EGFR-NON AF MONEGASQUE 50 mL/min/1.73m2 Critically low >=60 [facility] Comment on above: Performed By: #### VALERIO MADRIGAL #### [facility] [address] [address] [address] Dang Grimm Vital Signs Date Time Vital Sign Value Performing Clinician Facility 06-02-2024 14:33-0400 Body height 154.9 cm Stvz Schedule [facility] 06-02-2024 14:33-0400 Body mass index (BMI) [Ratio] 24 kg/m2 Stvz Schedule [facility] 06-02-2024 14:33-0400 Body weight 57.61 kg Stvz Schedule [facility] [facility] 06-02-2024 14:33-0400 Diastolic blood pressure 63 mm[Hg] Stvz Schedule [employer] [facility] 06-02-2024 14:33-0400 Heart rate 96 /min Stvz Schedule [employer] [facility] 06-02-2024 14:33-0400 Respiratory rate 16 /min Stvz Schedule [facility] 06-02-2024 14:33-0400 SaO2% (BldA) [Mass fraction] 97 % [facility] 06-02-2024 14:33-0400 Systolic blood pressure 132 mm[Hg] [facility] 03-20-2024 09:15-0400 Diastolic blood pressure 62 mm[Hg] MD Viky Stanford Work Phone: [facility] 03-20-2024 09:15-0400 Heart rate 72 /min MD Viky Stanford Work Phone: [facility] 03-20-2024 09:15-0400 Respiratory rate 20 /min MD Viky Stanford Work Phone: [facility] 03-20-2024 09:15-0400 SaO2% (BldA) [Mass fraction] 99 % MD Viky Stanford Work Phone: [facility] 03-20-2024 09:15-0400 Systolic blood pressure 115 mm[Hg] MD Viky Stanford Work Phone: [facility] 03-20-2024 07:18-0400 Body height 156.84 cm MD Viky Stanford Work Phone: [facility] 03-20-2024 07:18-0400 Body weight 55.33 kg MD Viky Stanford Work Phone: [facility] 03-16-2024 09:04-0400 Body height 156.84 cm MD Viky Stanford Work Phone: [facility] 03-16-2024 09:04-0400 Body mass index (BMI) [Ratio] 22.8 kg/m2 MD Viky Stanford Work Phone: [facility] 03-16-2024 09:04-0400 Body weight 56.24 kg MD Viky Stanford Work Phone: [facility] 03-16-2024 09:04-0400 Diastolic blood pressure 72 mm[Hg] MD Viky Stanford Work Phone: [facility] 03-16-2024 09:04-0400 Heart rate 81 /min MD Viky Stanford Work Phone: [facility] 03-16-2024 09:04-0400 Systolic blood pressure 122 mm[Hg] MD Viky Stanford Work Phone: [facility] 10-02-2023 09:55-0500 Diastolic blood pressure 67 mm[Hg] MD Viky Stanford Work Phone: [facility] 10-02-2023 09:55-0500 Heart rate 80 /min MD Viky Stanford Work Phone: [facility] 10-02-2023 09:55-0500 Respiratory rate 16 /min MD Viky Stanford Work Phone: [facility] 10-02-2023 09:55-0500 SaO2% (BldA) [Mass fraction] 99 % MD Viky Stanford Work Phone: [facility] 10-02-2023 09:55-0500 Systolic blood pressure 108 mm[Hg] MD Viky Stanford Work Phone: [facility] 10-02-2023 07:07-0500 Body height 160.02 cm MD Viky Stanford Work Phone: [facility] 10-02-2023 07:07-0500 Body weight 56.69 kg MD Viky Stanford Work Phone: [facility] 08-30-2023 10:30-0500 Body height 157.48 cm Viky Stanford Other [facility] 08-30-2023 10:30-0500 Body mass index (BMI) [Ratio] 21.73 kg/m2 iVky Stanford Other [facility] [employer] Other 08-30-2023 10:30-0500 Body weight 53.89 kg Viky Stanford Other [facility] [employer] Other 08-30-2023 10:30-0500 Body weight 53.88 kg MD Viky Stanford Work Phone: [facility] 08-30-2023 10:30-0500 Diastolic blood pressure 74 mm[Hg] Viky Stanford Other [facility] 08-30-2023 10:30-0500 Systolic blood pressure 122 mm[Hg] Viky Stanford Other [facility] 08-21-2023 13:45-0500 Body height 157.48 cm Imad Asaad Other [facility] 08-21-2023 13:45-0500 Body mass index (BMI) [Ratio] 21.58 kg/m2 Imad Asaad Other [facility] [employer] Other 08-21-2023 13:45-0500 Body weight 53.52 kg Imad Asaad Other [facility] 07-15-2023 11:30-0500 Body height 157.48 cm Viky Stanford Other [facility] 07-15-2023 11:30-0500 Body mass index (BMI) [Ratio] 21.73 kg/m2 Viky Stanford Other [facility] [employer] Other 07-15-2023 11:30-0500 Body weight 53.89 kg Viky Stanford Other [facility] [employer] Other 07-15-2023 11:30-0500 Body weight 53.88 kg MD Viky Stanford Work Phone: [facility] 07-15-2023 11:30-0500 Diastolic blood pressure 78 mm[Hg] Viky Stanford Other [facility] 07-15-2023 11:30-0500 Systolic blood pressure 148 mm[Hg] Viky Stanford Other [facility] 07-06-2023 09:20-0500 Body height 157.48 cm MD Viky Stanford Work Phone: [facility] 07-06-2023 09:20-0500 Body weight 55.51 kg MD Viky Stanford Work Phone: [facility] Encounters Encounter Date Encounter Type Care Provider Facility Start: 06-26-2024 End: 06-28-2024 ambulatory MADISON Adeola [facility] Start: 06-26-2024 End: 06-28-2024 Subsequent hospital visit by physician Echo Ham DO Work Phone: [facility] CT Scan Comment on above: Sacroiliitis (HCC) Start: 06-09-2024 End: 06-09-2024 ambulatory ECHO Z [facility] Start: 06-02-2024 End: 06-06-2024 ambulatory ECHO Z [facility] Start: 06-02-2024 Encounter for other preprocedural examination [facility] Start: 06-02-2024 End: 06-06-2024 Patient encounter status Hoa Moody [facility] Start: 06-02-2024 End: 06-06-2024 Subsequent hospital visit by physician Hoa Dias Pat Schedule HOA Dias Pre-Admit Testing Comment on above: Pre-op testing (Prim edil Dx) Start: 04-29-2024 End: 04-29-2024 ambulatory CARI B APLING Not Available Start: 04-15-2024 End: 04-15-2024 ambulatory CARI B APLING Not Available Start: 03-20-2024 Non-patient / Non-visit MD Viky Stanford Work Phone: [facility] Gastroenterology Work Phone: Start: 03-20-2024 End: 03-20-2024 Admission to same day surgery center MD Viky Stanford Work Phone: [facility] Work Phone: Start: 03-20-2024 End: 03-20-2024 ambulatory MD Viky Stanford Work Phone: [facility] Work Phone: Start: 03-18-2024 End: 03-18-2024 ambulatory CARI B APLING Not Available Start: 03-17-2024 Preoperative state MD Viky bliss Work Phone: [facility] Start: 03-16-2024 End: 03-16-2024 ambulatory CARI B APLING Not Available Start: 03-16-2024 End: 03-16-2024 Patient encounter procedure MD Viky Stanford Work Phone: [facility] Work Phone: Start: 10-14-2023 End: 10-15-2023 ambulatory Ara Maier MD Facility:[facility] Start: 10-04-2023 End: 10-04-2023 ambulatory Imad Asaad Other [employer] Other Start: 10-04-2023 Telephone encounter Imravindra Torres [facility] Start: 10-02-2023 Non-patient / Non-visit MD Viky Stanford Work Phone: [facility] Gastroenterology Work Phone: Start: 10-02-2023 End: 10-02-2023 Admission to same day surgery center MD Viky Stanford Work Phone: [facility] Work Phone: Start: 10-02-2023 End: 10-02-2023 ambulatory MD Viky Stanford Work Phone: [facility] Work Phone: Start: 09-23-2023 End: 09-23-2023 ambulatory Viky Stanford Other [employer] Other Start: 09-23-2023 Telephone encounter Viky Stanford [facility] Start: 09-09-2023 End: 09-09-2023 ambulatory CARI B APLING Not Available Start: 09-04-2023 End: 09-04-2023 ambulatory CARI B APLING Not Available Start: 09-03-2023 End: 09-03-2023 ambulatory Viky Stanford Other [employer] Other Start: 09-03-2023 Telephone encounter Viky Stanford [facility] [employer] Start: 08-30-2023 End: 08-30-2023 ambulatory Viky Stanford Other [employer] Other Start: 08-30-2023 Office outpatient visit 15 minutes Viky Stanford [facility] Start: 08-30-2023 End: 08-30-2023 Patient encounter procedure MD Viky Stanford Work Phone: [facility]- Start: 08-23-2023 End: 08-23-2023 ambulatory Viky Stanford Other [employer] Other Start: 08-23-2023 Telephone encounter Viky Stanford [facility] Start: 08-21-2023 End: 08-21-2023 ambulatory Imad Asaad Other [employer] Other Start: 08-21-2023 Office outpatient ne w 45 minutes Imad Asaad [facility] Gastroenter[facility] Start: 08-21-2023 End: 08-21-2023 Patient encounter procedure MD Viky Stanford Work Phone: [facility] Work Phone: Start: 07-15-2023 End: 07-15-2023 ambulatory Viky Stanford Other [employer] [facility] [employer] Other Start: 07-15-2023 Office outpatient visit 15 minutes Viky tSanford [facility] Start: 07-15-2023 Telephone encounter Viky Stanford [facility] Start: 07-15-2023 End: 07-15-2023 Patient encounter procedure MD Viky Stanford Work Phone: [facility] Work Phone: Start: 07-06-2023 End: 07-06-2023 Patient encounter procedure MD Viky Stanford Work Phone: [facility] Luis Alfredo Work Phone: Start: 05-06-2023 End: 05-07-2023 ambulatory Ara Maier MD Facility:[facility] Start: 04-22-2023 End: 04-23-2023 ambulatory Ara Maier MD Facility:[facility] Start: 10-03-2022 End: 10-05-[address] VIKY STANFORD Facility:[facility] Start: 09-27-2022 End: 09-28-[address] MASSIMO MATTHEWS . Facility:[facility] Start: 09-11-2022 End: 09-11-[address] MASSIMO MATTHEWS . Facility:[facility] Start: 09-07-2022 End: 10-17-[address] MASSIMO MATTHEWS . Facility:[facility] Start: 09-04-2022 End: 09-05-[address] MASSIMO MATTHEWS . Facility:[facility] Start: 07-26-2022 Encounter for preprocedural laboratory examination DR MASSIMO MATTHEWS . [facility] Start: 07-24-2022 End: 07-24-[address] MASSIMO [...] Start: 04-20-2022 End: 04-21-2022 ambulatory ARIADNA NOLAN Facility:[facility] Start: 04-09-2022 End: 04-10-[address] VIKY STANFORD Facility: Start: 02-27-2022 End: 02-28-2022 ambulatory DEFAULT PHYSICIAN Facility:[facility] Start: 02-22-2022 End: 02-23-[address] MASSIMO MATTHEWS . Facility: Start: 12-06-2021 ambulatory MICHELE SALDAÑA . Facility:[facility] Start: 11-30-2021 End: 12-01-[address] MASSIMO MATTHEWS . Facility: Start: 10-25-2020 Pre-procedure evaluation check Viky Stanford Other [facility] Other Procedures Date Procedure Procedure Detail Performing Clinician Start: 06-26-2024 Ct pelvis w/o contrast material Echo Ham DO Work Phone: Start: 06-02-2024 Blood count complete auto&auto difrntl wbc Ling Rojas MD Work Phone: Start: 06-02-2024 Ecg routine ecg w/least 12 lds w/i&r Ling Rojas MD Work Phone: Start: 03-20-2024 Colonoscopy MD Viky Stanford Work Phone: Start: 10-02-2023 Esophagogastroduodenoscopy MD Viky fox Work Phone: Start: 07-10-2017 Screening mammography Viky Abdoulaye Other Start: 07-19-2016 General examination of patient Viky padilla Other Plan of Treatment Date Care Activity Detail Author Start: 04-23-2032 DTaP/Tdap/Td vaccine (2 - Td or Tdap) DTaP/Tdap/Td vaccine (2 - Td or Tdap) [facility] Start: 06-09-2024 End: 06-09-2024 Admission to same day surgery center 06/09/2024 7:30 AM EDT - 06/09/2024 9:30 AM [place] [facility] [place] [address] [place], [place] [id number] Echo Ham, DO [address] [place], [place] [id number] RIGHT MINIMALLY INVASIVE SURGERY SACROILIAC JOINT FUSION POSTERIOR WITH SI BONE [facility] OR Comment on above: RIGHT MINIMALLY INVA SIVE SURGERY SACROILIAC JOINT FUSION POSTERIOR WITH SI BONE Start: 06-09-2024 End: 06-09-2024 Anesthesia consultation 06/09/2024 7:30 AM EDT Anesthesia [place] [facility] [place] [address] [place], [place] [address] Ricco Foote MD [address] [facility] [address] [place] [address] [facility] [place] Start: 06-09-2024 End: 06-09-2024 Arthrodesis sacroiliac joint percutaneous SACROILIAC JOINT FUSION POSTERIOR Chronic right SI joint pain 06/09/2024 7:30 AM EDT [facility] Start: 06-09-2024 Subsequent hospital visit by physician 06/09/2024 7:30 AM EDT Hospital Encounter [facility] [place] [address] [place] [address] Echo Ham, DO [address] [place] [address] [facility] [place] Start: 05-27-2024 Annual Wellness Visi t (Medicare) Annual Wellness Visit (Medicare) [employer] [facility] [employer] Start: 04-12-2024 COVID-19 Vaccine ( season) COVID-19 Vaccine () [facility] Start: 03-20-2024 [facility] Start: 10-02-2023 [facility] Start: 2001 Screening for osteoporosis DEXA (modify frequency per FRAX score) [facility] Start: 1964 Hepatitis C screening Hepatitis C sc reen [facility] Start: 1958 Depression Screen Depression Screen [facility] Patient Education Hemorrhoids (D C) Know your Meds [facility] Work Phone: Immunizations Immunization Date Immunization Notes Care Provider Fa cility 05-17-2022 zoster vaccine, live Viky Stanford Other [facility] 04-23-2022 influenza virus vaccine, split virus (incl. purified surface antigen) Viky Stanford Other [facility] Other 04-23-2022 influenza virus vaccine, unspecified formulation MD Viky Stanford Work Phone: [facility] 04-23-2022 pneumococcal polysaccharide vaccine, 23 valent Viky Stanford Other [facility] 04-23-2022 tetanus toxoid, adsorbed Viky Stanford Other [facility] 05-25-2021 influenza virus vaccine, split virus (incl. purified surface antigen) Viky Stanford Other [facility] Other 05-25-2021 influenza virus vaccine, unspecified formulation MD Viky Stanford Work Phone: [facility] 10-18-2020 COVID-19 Vaccine Moderna - Documentation Purposes Only Viky Stanford Other [facility] 09-19-2020 COVID-19 Vaccine Moderna - Documentation Purposes Only Viky Stanford Other [facility] 04-16-2020 influenza virus vaccine, split virus (incl. purified surface antigen) Viky Stanford Other [facility] [employer] Other 04-16-2020 influenza virus vaccine, unspecified formulation MD Viky Stanford Work Phone: [facility] 05-12-2019 influenza virus vaccine, split virus (incl. purified surface antigen) Viky Stanford Other [facility] [employer] Other 05-12-2019 influenza virus vaccine, unspecified formulation MD Viky Stanford Work Phone: [facility] 04-18-2018 influenza virus vaccine, split virus (incl. purified surface antigen) Viky Stanford Other [facility] [employer] Other 04-18-2018 influenza virus vaccine, unspecified formulation MD Viky Stanford Work Phone: [facility] 07-10-2017 pneumococcal conjuga te vaccine, 13 valent Viky Stanford Other [facility] 04-18-2017 influenza virus vaccine, split virus (incl. purified surface antigen) Viky Stanford Other [facility] [employer] Other 04-18-2017 influenza virus vaccine, unspecified formulation MD Viky Stanford Work Phone: [facility] 05-09-2016 influenza virus vaccine, split virus (incl. purified surface antigen) Viky Stanford Other [facility] [employer] Other 05-09-2016 influenza virus vaccine, unspecified formulation MD Viky Stanford Work Phone: [facility] 05-27-2013 tetanus and diphther ia toxoids, adsorbed, preservative free, for adult use (5 Lf of tetanus toxoid and 2 Lf of diphtheria toxoid) Viky Stanford Other [facility] 12-24-2011 pneumococcal polysaccharide vaccine, 23 valent Viky Stanford Other [facility] Payers Date Payer Category Payer Self-pay 2022 Medicare 2022 Unknown 1959 Medicare [id number] 1959 Unknown [id number] 1945 Unknown [id number] 2.16.8 40.1.094798.3.579.2.647 1945 Unknown [id number] 2.16.8 40.1.307530.3.579.2.647 1946 Unknown [id number] 2.16.84 0.1.076932.3.579.2.593 1946 Unknown [id number] 2.16.84 0.1.879920.3.579.2.593 1946 Unknown [id number] 2.16.84 0.1.867238.3.579.2.593 1946 Unknown [id number] 2.16.84 0.1.590505.3.579.2.593 1946 Unknown [id number] 2.16.84 0.1.757236.3.579.2.593 1946 Unknown [id number] 2.16.84 0.1.478261.3.579.2.593 1946 Unknown [id number] 2.16.84 0.1.977973.3.579.2.593 1946 Unknown [id number] 2.16.84 0.1.391595.3.579.2.593 1946 Unknown [id number] 2.16.84 0.1.122246.3.579.2.593 1946 Unknown [id number] 2.16.84 0.1.405371.3.579.2.593 1946 Unknown [id number] 2.16.84 0.1.211427.3.579.2.593 1946 Unknown [id number] 2.16.84 0.1.087625.3.579.2.593 1946 Unknown [id number] 2.16.84 0.1.384477.3.579.2.593 1946 Unknown [id number] 2.16.84 0.1.145369.3.579.2.593 1946 Unknown [id number] 2.16. 840.1.889235.3.579.2.196 1946 Unknown [id number] 2.16. 840.1.838852.3.579.2.196 1946 Unknown [id number] 2.16. 840.1.180968.3.579.2.196 1946 Unknown [id number] 2.16.84 0.1.273027.3.579.2.1259 1946 Unknown [id number] 2.16.84 0.1.309305.3.579.2.1259 1946 Unknown [id number] 2.16.84 0.1.717844.3.579.2.1259 1946 Unknown [id number] 2.16.84 0.1.756493.3.579.2.1259 1946 Unknown [id number] 2.16.84 0.1.594590.3.579.2.1259 1946 Unknown [id number] 2.16.84 0.1.656558.3.579.2.1259 1946 Unknown [id number] 2.16.84 0.1.661705.3.579.2.1259 1946 Unknown [id number] 2.16. 840.1.114531.3.579.2.175 1946 Unknown [id number] 2.16. 840.1.730746.3.579.2.175 1945 Unknown [id number] 2.16.8 40.1.476770.3.579.2.176 Medicare Medicare Outpatient [id number] 9A [id number] Unknown [id number] 2.16.8 40.1.199232.3.579.2.531 Social History Date Type Detail Facility Unknown if ever smoked [facility] Other Start: 06-02-2024 End: 06-09-2024 Sex Assigned At [employer] Other Start: 10-02-2023 End: 06-02-2024 Tobacco smoking status NHIS Never smoked tobacco (finding) [facility] Start: 1945 Sex Assigned At Female F [facility] Start: 06-02-2024 Tobacco use and exposure Smokeless tobacco non-user [employer] Start: 06-02-2024 End: 06-10-2024 Alcoholic beverage intake Current drinker of alcohol (finding) [employer] Start: 06-02-2024 End: 06-09-2024 History of Social function [employer] Physical abuse Denies [employer] Start: 06-02-2024 Alcohol Comment occasioally only [employer] Start: 1945 Sex assigned at Not on file B on [employer] Start: 06-07-2024 Gender identity Identifies as female gender (finding) [employer] Medical Equipment Procedure Code Equipment Code Equipment Origin al Text Equipment Identifier Dates Joint Sacroiliac 11.5x50 Mm [employer] - [id number] Start: 06-09-2024 Joint Sacroiliac 11.5x35 Mm [employer] - [id number] Start: 06-09-2024 Joint Sacroiliac 11.5x35 Mm [employer] - [id number] Start: 06-09-2024 Goals Date Patient Goal Desired Activity /State [...] at the surgery center C entrance) on ___35-90-93 by ____0530-0600am . Please stop any blood [...] drive you home after your procedure. 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 Referral placed. [facility] Other 01-10-2024 Evaluation note* Encounter Date Diagnosis Assessment Notes Treatment Notes Treatment Clinical Notes Aug, GERD (gastroesophageal reflux disease) (ICD-10 - K21.9) Aug, Chronic diarrhea (ICD-10 - K52.9) Patient reports that her last colonoscopy was at the [facility] about 11 years ago and that she can not remember who preformed the procedure Aug, Abdominal pain (ICD-10 - R10.9) Aug, Weight loss, unintentional (ICD-10 - R63.4) Aug, Change in bowel habits (ICD-10 - R19.4) Patinet is advised to have a colonoscopy ordered, scheduled and prep instructions given today Risks and benefits of procedure explained to patient; patient verbalizes understanding. [facility] Other 12-04-2023 Evaluation note* Encounter Date Diagnosis [...] (ICD-10 - M81.0) Due for Dexa 08/2023 [facility] Other 02-16-2023 NoteCONSULTATION CONSULTATION DATE: 09/27/2022 HISTORY OF PRESENT ILLNESS: This is a 76-year-old female who returns to the clinic status post LES on 09/11/2022. The patient states she was afforded between 50-60% relief. Depending on her physical activity, determines her level of comfort. Activities such as standing, walking, lying, certified hyperbaric technologist hours, housework and lifting greatly aggravate her [...] Patient is in agreement with this plan.[id number] NoteCONSULTATION CONSULTATION DATE: 09/04/2022 HISTORY OF PRESENT [...] patient understands and would like to proceed.[id number] NoteCONSULTATION CONSULTATION DATE: 07/11/2022 HISTORY OF PRESENT [...] followed up in the clinic post procedure.[id number] NoteCONSULTATION PROCEDURE DATE: 07/11/2022 PREOPERATIVE DIAGNOSIS: Bilateral [...] will be followed up in the clinic.[facility] 06-06-2022 NoteCONSULTATION CONSULTATION DATE: 06/06/2022 HISTORY OF [...] pain returning. 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 The patient has not seen a informatics application analyst in the past. REVIEW OF SYSTEMS, PAST [...] mg q.h.s. A referral to rheumatology near [place] will be sent on her behalf and I highly encouraged her to seek consultation, particularly since she has a familial history of autoimmune diseases. The patient agrees with the plan of care and will be followed up in the office in three months' time. IF Signed and Approved by: MICHELE SALDAÑA . 03/02/2022 14:16:00[facility]04-21-2022 NoteCONSULTATION Consultation Date:11/30/2021 PREOPERATIVE DIAGNOSIS: Right [...] will be followed up in the office. [facility] Signed and Approved by: MICHELE SALDAÑA . 12/06/2021 16:15:00[facility]04-21-2022 NoteCONSULTATION Consultation Date:11/30/2021 PAIN MANAGEMENT CONSULTATION [...] her pain are twisting, turning, pushing, pulling, certified hyperbaric technologist hours, lifting and transitioning positions. Lying down and using heat decrease her pain. Prior to the procedure, she was in a state of acute pain and was placed on a short term course of [place] 5/325 b.i.d. p.r.n. Patient states she only [...] of care and would like to proceed. [facility] Signed and Approved by: MICHELE SALDAÑA . 12/06/2021 16:15:00[facility] noteNo InformationNort [employer] Other Evaluation noteNo assessment information available [facility] Work Phone: Evaluation note* Diagnosis Onset Date Resolution Status Lumbar spondylosis acute Preoperative clearance acute Situational depression acute [facility] Work Phone: Evalufrbwd note* Diagnosis Pre-op testing- Primary Preoperative examination, unspecified Chronic right SI joint pain Disorders of sacrum documented in this encounter [facility] HealthEvaluation note* Diagnosis Sacroiliitis (HCC) Sacroiliitis, not elsewhere classified documented in this encounter [facility] HealthHistory and physical note Author Sunny Torres [facility] October 02, 2023 8:54am Note Date/Time October 02, 2023 8:54am [facility] [address] [place] [address] Gastroenterology H&P Signed Patient: Arianne Murdock MR#: [id number] : 1945 Acct:[id number] Age/Sex: 78 / F Adm Date: 4 Loc: Room: Type: [facility] Attending Dr: Sunny Torres MD Copies to: MD Viky Morel MD~ Date of Service: 10/02/2023 HISTORY [...] signed by Sunny Torres MD> 10/02/23 0854 [facility] Work Phone: History and physical note Author Sunny Torres [facility] March 20, 2024 8:43am Note Date/Time March 20, 2024 8:4 3am [facility] [address] [place] [address] Gastroenterology H&P Signed Patient: Arianne Murdock MR#: [id number] : 1945 Acct:[id number] Age/Sex: 78 / F Adm Date: 4 Loc: Room: Type: [facility] Attending Dr: Sunny Torres MD Copies to: MD Viky Morel MD~ Date of Service: 03/20/2024 HISTORY [...] signed by Sunny Torres MD> 03/20/24 0843 [facility] Work Phone: History general Narrative [...] shoulder pain 1982 Hospitalization History migraines 1992 [facility] Other Hospital Discharge instructions Additional Instructions DISCHARGE [...] up in the office - Office number [phone]. [facility] Work Phone: Summary Purpose Family [...] 1 Chronic diarrhea (K5 2.9) Referral Organization [facility] [employer] Referring Provider First Name Viky Referring Provider Last Name Abdoulaye Referring Provider Specialty [facility] Referred Organization [facility] Gastroenterolo gy Referred Address [address],[address] Referred Provider Specialty Gastroentero logy Referral Priority Routine Reason *FU 09/06 R foot p ain Diagnosis 1 Pain of left great t oe (M79.675) Referral Organization [facility] [employer] [facility] pipo Referring Provider First Name Viky Referring Provider Last Name Abdoulaye Referring Provider Specialty [facility] Referred Organization [facility] Referred Provider Odin Chong Referred Address [address] [place], [place],[address] Referred Provider Specialty Podiatry - S urgical Chiropody Referral Priority Routine General Notes Shefali Carroll 12:44:49 PM >received today, notes locked, ins attached, referral faxed Specialty Diagnoses / Procedures Referred By Contac t Referred To Contact Radiology Diagnoses Sacroiliitis (HCC) Procedures CT PELVIS WO CONTRAST Additional Contrast? None Echo Ham DO [address] [place] [address] Referral ID Status Reason Start Date Expiration Date Visits Re quested Visits Authorized [id number] Closed 06/24/2024 06/24/2025 1 1 Chief Complaint and Reason for Visit Chief [...] section and content) DATE CREATED AUTHOR 05/09/2022 [facility] DATE CREATED AUTHOR AUTHOR'S ORGANIZ ATION 11/17/[address] [facility] DATE CREATED AUTHOR AUTHOR'S ORGANIZ ATION 10/18/2023 [facility] DATE CREATED AUTHOR AUTHOR'S ORGANIZ ATION 04/01/2024 [facility] DATE CREATED AUTHOR AUTHOR'S ORGANIZ ATION 05/01/2024 [facility] DATE CREATED AUTHOR AUTHOR'S ORGANIZ ATION 06/14/2024 [facility] DATE CREATED AUTHOR AUTHOR'S ORGANIZ ATION 06/30/2024 [facility] REASON FOR VISIT (unrecogniz ed section and content) Specialty Diagnoses / Procedures Referred By Contac t Referred To Contact Radiology Diagnoses Sacroiliitis (HCC) Procedures CT PELVIS WO CONTRAST Additional Contrast? None Echo Ham DO [address] [place] [address] Referral ID Status Reason Start Date Expiration Date Visits Re quested Visits Authorized [id number] Closed 06/24/2024 06/24/2025 1 1 Care Teams (unrecognized sec tion and content) Team Status: Active Member Role Status Dates Viky Stanford MD Primary Care Provider Active Team Status: Inactive Member Role Status Dates Florence Peterson NP-C Attending Provider Active S tart: July 06, 2023 End: July 06, 2023 Team Status: Inactive Member Role Status Dates Viky Stanford MD Attending Provider Active St art: July 15, 2023 End: July 15, 2023 Team Status: Inactive Member Role Status Dates Sunny Torres MD Attending Provider Active Start: August 21, 2023 End: August 21, 2023 Team Status: Inactive Member Role Status Dates Viky Stanford MD Attending Provider Active St art: August 30, 2023 End: August 30, 2023 Team Status: Inactive Member Role Status Dates Viky Stanford MD Primary Care Provider Active Start: October 02, 2023 End: October 02, 2023 Sunny Torres MD Attending Provider Active Start: October 02, 2023 End: October 02, 2023 Team Status: Active Member Role Status Dates Viky Stanford MD Primary Care Provider Active Start: October 02, 2023 Sunny Torres MD Attending Provider, Other Provider Active Start: October 02, 2023 Team Status: Inactive Member Role Status Dates Viky Stanford MD Primary Care Provide r, Attending Provider Active Start: March 16, 2024 End: March 16, 2024 Team Status: Inactive Member Role Status Dates Viky Stnaford MD Primary Care Provider Active Start: March 20, 2024 End: March 20, 2024 Sunny Torres MD Attending Provider Active Start: March 20, 2024 End: March 20, 2024 Team Status: Active Member Role Status Dates Viky Stanford MD Primary Care Provider Active Start: March 20, 2024 Sunny Torres MD Attending Provider, Other Provider Act cara Start: March 20, 2024 Research Program Manager Relationship Specialty Start Date End Date Viky Stanford MD [address] [place] [id number] PCP - General Family Medicine 06/02/24 Research Program Manager Relationship Specialty Start Date End Date Viky Stanford MD [address] [place] [id number] PCP - General Family Medicine 06/02/24 FOR [...] BE BASED ON THE PRIMARY CLINICAL RECORDS. [facility] [employer] [facility]. provides no warranty or guarantee of the accuracy or completeness of information in this document.
--- NOTE | 2024-07-01 16:08 | P.CN_ITS ---
Consult Note: HPI Data of Consult Patient: known to practice within the last 3 years Consult date: 05/29/23 Requesting Physician: Meilssa Soni NP Primary Care Provider: Patricia Nicolas MD Consult Narrative Reason for consult: f/u Narrative: Arianne Ko a pleasant 78 year old female presents for evaluation of lumbar radiculopathy post lumbar fusion and right SIJ fusion. Pain today 9/10 constant increasing to 10/10 with all activity. Patient was referred back by her surgeon Dr Saenz for consideration of right L5 TFESI followed by right S1 TFESI if needed. Pt reporting numbness tingling and weakness to right lower extremity. pt finding little benefit to lyrica 75mg BID and hydrocodone-acetaminophen 5-325mg QID PRN. cc:: CC: Melissa Soni NP Review of Systems ROS Status of ROS 10 or more systems reviewed and unremark able except as noted in history and below Musculoskeletal Reports: back pain and extremity pain PFSH PFSH Medical History DDD (degenerative disc disease) Postoperative pain ?G89.18 - Other acute postprocedural pain (ICD-10) Encounter for long-term opiate analgesic use ?Z79.891 - medical terminologist (current) use of opiate analgesic (ICD-10) Sacroiliac joint pain ?M53.3 - Sacrococcygeal disorders, not elsewhere classified (ICD-10) Sacroiliac joint dysfunction of right side ?M53.3 - Sacrococcygeal disorders, not elsewhere classified (ICD-10) Muscle spasm ?M62.838 - Other muscle spasm (ICD-10) Bilateral sacroiliitis ?M46.1 - Sacroiliitis, not elsewhere classified (ICD-10) Lumbar radiculopathy ?M54.16 - Radiculopathy, lumbar region (ICD-10) Lumbar spondylosis ?M47.816 - Spondylosis without myelopathy or radiculopathy, lumbar region (ICD-10) Chronically on opiate therapy ?Z79.891 - medical terminologist (current) use of opiate analgesic (ICD-10) Osteoporosis ?M81.0 - Age-related osteoporosis without current pathological fracture (ICD- 10) Primary osteoarthritis, left ankle and foot ?M19.072 - Primary osteoarthritis, left ankle and foot (ICD-10) Bunionette of left foot ?M21.622 - Bunionette of left foot (ICD-10) Hallux valgus (acquired), left foot ?M20.12 - Hallux valgus (acquired), left foot (ICD-10) Back pain ?M54.9 - Dorsalgia, unspecified (ICD-10) Arthritis ?M19.90 - Unspecified osteoarthritis, unspecified site (ICD-10) Vertigo ?R42 - Dizziness and giddiness (ICD-10) Headache ?R51.9 - Headache, unspecified (ICD-10) Migraine ?G43.909 - Migraine, unspecified, not intractable, without status migrainosus (ICD-10) Multiple fractures ?T07.XXXA - Unspecified multiple injuries, initial encounter (ICD-10) Microscopic colitis ?K52.839 - Microscopic colitis, unspecified (ICD-10) Hiatal hernia ?K44.9 - Diaphragmatic hernia without obstruction or gangrene (ICD-10) Syncopal episodes (2019) ?R55 - Syncope and collapse (ICD-10) Osteopenia ?M85.80 - Other specified disorders of bone density and structure, unspecified site (ICD-10) Osteoarthritis ?M19.90 - Unspecified osteoarthritis, unspecified site (ICD-10) Neck pain ?M54.2 - Cervicalgia (ICD-10) Low back pain ?M54.50 - Low back pain, unspecified (ICD-10) Heartburn ?R12 - Heartburn (ICD-10) Acid reflux ?K21.9 - Gastro-esophageal reflux disease without esophagitis (ICD-10) Surgical History History of bunionectomy ?Z98.890 - Other specified postprocedural states (ICD-10) History of esophagogastroduodenoscopy (EGD) ?Z98.890 - Other specified postprocedural states (ICD-10) History of colonoscopy ?Z98.890 - Other specified postprocedural states (ICD-10) History of carpal tunnel release ?Z98.890 - Other specified postprocedural states (ICD-10) S/P cataract extraction and insertion of intraocular lens ?Z98.49 - Cataract extraction status, unspecified eye (ICD-10) ?Z96.1 - Presence of intraocular lens (ICD-10) History of repair of rotator cuff ?Z98.890 - Other specified postprocedural states (ICD-10) H/O radiofrequency ablation (RFA) of nerve of lumbar spine ?Z98.890 - Other specified postprocedural states (ICD-10) H/O shoulder surgery ?Z98.890 - Other specified postprocedural states (ICD-10) History of ear, nose, and throat (ENT) surgery ?Z98.890 - Other specified postprocedural states (ICD-10) H/O carpal tunnel repair ?Z98.890 - Other specified postprocedural states (ICD-10) H/O wrist surgery ?Z98.890 - Other specified postprocedural states (ICD-10) H/O section ?Z98.891 - History of uterine scar from previous surgery (ICD-10) Family History Other Family history of colon cancer Family history of diabetes mellitus Family history of heart disease Family history of ovarian cancer Family history of prostate cancer Family history of throat cancer Family history of uterine cancer Social History Within the past year, how often did you have a drink containing alcohol: monthly or less Smoking status: Never smoker Non-prescribed substance use: denies use Previous occupational history: retired Known occupational exposures/hazards: No Highest level of school completed/degree received: some college, no degree Meds Home Medications and Allergies Home Medications ?Medication ?Instructions ?Recorded ?Confirmed ?Type denosumab 60 mg/mL subcutaneous 60 mg subcut .[id number] 04/10/23 03/27/24 History syringe (Prolia) geriatric multivitamin-min 1 cap PO DAILY 04/10/23 03/27/24 History magnesium 200 mg tablet 400 mg PO BID 04/10/23 03/27/24 History pantoprazole 40 mg tablet,delayed 40 mg PO DAILY 07/24/23 03/27/24 History release cyclobenzaprine 10 mg tablet 10 mg PO TID 07/01/24 07/01/24 History hydrocodone 5 mg-acetaminophen 325 1 tab PO Q8H 07/01/24 07/01/24 History mg tablet hydrocodone 5 mg-acetaminophen 325 See Rx Instructions .Route 07/01/24 Rx mg tablet .COMPLEX PRN pain #42 tabs pregabalin 50 mg capsule (Lyrica) 50 mg PO BID 07/01/24 07/01/24 History Allergies Allergy/AdvReac Type Severity Reaction Status Date / Time No Known Drug Allergies Allergy Verified 11/11/23 09:13 Exam Constitutional Documenting provider has reviewed patient's vital signs: yes Common normals: no apparent distress, oriented x3, healthy appearing, alert and well nourished General appearance: cooperative HENMT Common normals: normocephalic, hearing grossly normal bilaterally and moist oral mucous membranes Head and scalp: normocephalic Eye Common normals: PERRL Pupil: PERRL Neck & C-Spine Common normals: full ROM General: normal visual inspection Chest Common normals: inspection of chest normal Respiratory Common normals: normal respiratory effort, no retractions and no use of accessory muscles Back & Pelvis Lumbar spine/lower back: ROM limited, pain with ROM, lumbar spinal tenderness, paraspinal muscle tenderness, paraspinal muscle spasm Lumbar paraspinal muscle spasm: right and straight leg raise positive right Other: strength 3.5/5 in RLE sensation altered to right L5/S1 significant myofascial spasming noted to right paralumbar and latissimus dorsi, trigger points noted Extremity Common normals: normal to inspection and full ROM Neuro Common normals: oriented x3, CN's II-XII intact bilaterally, moves all extremities, no focal motor deficits, no sensory deficits noted and deep tendon reflexes 2+ bilaterally Sensorium/orientation: alert Motor exam: no movement abnormalities noted and strength abnormal Psych Common normals: mental status grossly normal, thought process normal, cooperative, affect normal, speech normal and activity/motor behavior normal Speech: normal speech Thought process: normal thought process Assessment and Plan Assessment and Plan (1) Myalgia, other site: Assessment and Plan: PROCEDURE: trigger point injection to right latissimus dorsi ANESTHESIA:?Local and sedation. COMPLICATIONS:?None. DESCRIPTION OF PROCEDURE:?The procedure risks, hazards and alternatives were discussed with the patient and a proper consent was obtained. The area over the myofascial spasm was prepped with alcohol utilizing sterile technique. After isolating it between two palpating fingertips a 25-gauge 1.5 needle was placed in the center of the myofascial spasms and a negative aspiration was performed. Then 1cc of bupivacaine 0.25%/lidocaine 2%/and kenalog 2mg was injected into each trigger point x4. The patient tolerated the procedure well without any apparent difficulties or complications. They were feeling relief by the time the block had set. (2) Lumbar radiculopathy: (3) Status post fusion of sacroiliac joint: (4) Encounter for long-term opiate analgesic use: (5) DDD (degenerative disc disease): Qualifiers: Spinal region: thoracolumbar Qualified Code(s): M51.35 - Other intervertebral disc degeneration, thoracolumbar region (6) Sacroiliac joint dysfunction of right side: (7) Lumbar spondylosis: Plan proceed with right L5 SNRB under fluoroscopy increase hydrocodone acetaminophen 7.5mg QID PRN moderate to severe pain, risks vs benefits reviewed continue pregabalin 75mg BID start cyclobenzaprine 5-10mg TID PRN pain/spasms, not to be taken with hydrocodone as discussed trigger point performed as noted above nurse visit in 1 week to assess medication regimen f/u 2 weeks after procedure
== END 2024-07-01 13:32 | disposition home or self-care (01) ==
PROVIDERS: PCP Family Medicine; Visit Provider Nurse Practitioner
DX: M79.18 Myalgia, other site (principal); M54.16 Radiculopathy, lumbar region; M53.3 Sacrococcygeal disorders, not elsewhere classified; Z79.891 Long term (current) use of opiate analgesic; M51.369 Other intervertebral disc degeneration, lumbar region without mention of lumbar back pain or lower extremity pain; M51.35 Other intervertebral disc degeneration, thoracolumbar region; M47.816 Spondylosis without myelopathy or radiculopathy, lumbar region
CPT/HCPCS: 20552; J0665; J3301

== ENCOUNTER 2024-07-06 10:01 | Day surgery (SDC) | payer MEDICARE, SELFPAY ==
[2024-07-06 10:22] VITALS: BP 152/83; PULSE 95; TEMP 36; O2SAT 96
--- OUTSIDE RECORDS SUMMARY | 2024-07-06 10:23 | XMS_ITS | CCD ---
Author Organization [facility] Care Team Providers Care Blow Torch Burner Name Role Phone PHYSICIAN, DEFAULT Admitting Unavailable [...] MATTHEWS ., DR MASSIMO Cook Admitting Unavailable SATNFORD, DR VIKY Crain Primary Care Unavailable MATTHEWS [...] Care Provider MD Melissa Imravindra Attending Provider [phone] Darrion DIAZ, Andpietro Loomis Attending Unavailable Darrion DIAZ, Andrius Vytcallie Attending Unavailable Darrion DIAZ, Rivkarius Vladislav Attending Unavailable MD Viky Stanford Primary Care Provider MD Melissa Imravindra Attending Provider Viky Stanford Primary Care Unavailable Asaad, Imad Admitting Unavailable Asaad, Imad Attending Unavailable Viky Stanford Primary Care Unavailable Asaad, Imad Admitting Unavailable Asaad, Imad Attending Unavailable APLING, CARI B Attending Unavailable APLING, CARI B Attending Unavailable APLING, CARI B Attending Unavailable APLING, CARI B Attending Unavailable APLING, CARI B Attending Unavailable APLING, CARI B Referring Unavailable APLING, CARI B Attending Unavailable Viky Stanford MD Primary Care Provider [phone] HAM, ECHO Mir Admitting Unavailabl e HAM, ECHO iMr Attending Unavailabl e STANFORDVIKY Primary Care Unavailable HAM, ECHO Mir Referring Unavailabl e STANFORDVIKY Primary Care Unavailable HAM, ECHO Mir Attending Unavailabl e HAM, ECHO Mir Referring Unavailabl e STANFORDVIKY Primary Care Unavailable Allergies Allergy Classification Reported Allergen(s) Allergy Type Date of Onset Reaction(s) Facility (8 sources) Calcitonin ([place]) *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 Propensity to adverse reactions Comment:severe weakness [email or web address] Other (3 sources) calcitonin; Translations: [calcitonin] Propensity to adverse reactions 4 Other (See Comments) [facility] (1 source) Fish Oils Drug Allergy 4 Other (See Comments) [facility] Medications Current Medications Medication Drug Class(es) Dates [...] Active Subcutaneous for 0 *Pick strength-form from [employer] for eRX* Aug, Active diclofenac sodium 50 [...] day for 0 days *Pick strength-form from [employer] for eRX* Oct, Active magnesium oxide 400 mg oral tablet (1 source) Start: 03-13-2024 take 1 tablet by mouth once daily Magnesium Oxide Active 400 MG PO Daily March 13, 2024 12:00am [employer] tablet with a meal Orally Once a day; Note: Source Status: Taking*Pick strength-form from [employer] for eRX*; Provider: Abdoulaye Gomez ( ) Multiple Vitamin (8 sources) take 1 tablet by mouth once daily Multiple Vitamin 1 tablet Orally Once a day Active Vfpjnppw-Viyf-Gg-Ca lcium-Mins (Daily Multiple For Women) 18 mg iron-400 mcg-500 mg Ca tablet (1 source) Start: 03-13-2024 take 1 tablet by mouth once daily Xnfnryvo-Ttjz-Fb-C alcium-Mins (Daily Multiple For Women) 18 mg [...] Provider: Abdoulaye Crain take 1 tablet by rbijesh th four times daily as needed Levsin [...] Other aftercare (8 sources) 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; Translations: [intermediate (current) use of bisphosphonates] Episodic Other connective [...] Quyen Ruffin MD 06/28/24 Final result Normal [facility] CT Pelvis WO contraston 06-12 Fusion at the right SI joint. No osseous fusion at this time. [facility] RIS CONSOLIDATED EXAMINATION: CT OF THE PELVIS [...] None. HISTORY ORDERING SYSTEM PROVIDED HISTORY: Sacroiliitis ([facility]) TECHNOLOGIST PROVIDED HISTORY: BACK PAIN Is a 3D rendering on an independant workstation needed?->No Reason for Exam: BACK PAIN, Sacroiliitis ([facility]) Additional signs and symptoms: Pt. states back [...] joint. No osseous fusion at this time. RE2 CT Pelvis WO contrastOrdered By: Quyen Ruffin on 06-28-2024 RE2 Work Phone: CT Pelvis WO contraston 06-12 Radiology Study observation (narrative) RE2 FLUORO FOR SURGICAL PROCEDUR ESon 06-09-2024 FLUORO FOR SURGICAL PROCEDURES Radiology exam is complete. No Radiologist dictation. Please follow up with ordering provider. Final result Normal [facility] EKG 12 LeadOrdered By: Carter Machuca on 06-03-2024 Atrial Rate 87 BPM RE2 Work Phone: P [place] 32 degrees RE2 Work Phone: P-R Interval 136 ms RE2 Work Phone: Q-T Interval 350 ms RE2 Work Phone: QRS Duration 74 ms RE2 Work Phone: QTc Calculation (Bazett) 421 ms RE2 Work Phone: R [place] 12 degrees RE2 Work Phone: T [place] 45 degrees RE2 Work Phone: Ventricular Rate 87 BPM [employer] Work Phone: RE2 Work Phone: EKG 12 Leadon 06-03-2024 Normal sinus rhythm Normal ECG No previous ECGs available [facility] STV Carter Urrutia DO - 06/03/2024 Normal sinus rhythm Normal ECG No previous ECGs available RE2 CBC with Auto Differentialon 06-02-2024 Basophils (Bld) [#/Vol] 0.06 10*3/uL RE2 Basophils/100 WBC (Bld) 1 % 0 - 2 % RE2 Eosinophils (Bld) [#/Vol] 0.09 10*3/uL [facility] Eosinophils/100 WBC (Bld) 1 % 1 - 4 % [facility] Erythrocyte distribution width (RBC) [Ratio] 12.5 % 11.8 - 14.4 % [facility] Hematocrit (Bld) [Volume fraction] 41.5 % 36.3 - 47.1 % [facility] Hemoglobin (Bld) [Mass/Vol] 13.2 g/dL 11.9 - 15.1 g/dL [facility] Immature granulocytes (Bld) [#/Vol] 0.05 10*3/uL [facility] Immature granulocytes/100 WBC (Bld) 1 % High 0 [facility] Interpretation and review of laboratory results Abnormal [facility] Lymphocytes/100 WBC (Bld) 20 % Low 24 - 43 % [facility] Lymphocytes/100 WBC (Bld) 1.62 % [facility] MCH (RBC) [Entitic mass] 31.1 pg 25.2 - 33.5 pg [facility] MCHC (RBC) [Mass/Vol] 31.8 g/dL 28.4 - 34.8 g/dL [facility] MCV (RBC) [Entitic vol] 97.6 fL 82.6 - 102.9 fL [facility] Monocytes/100 WBC (Bld) 10 % 3 - 12 % [facility] Monocytes/100 WBC (Bld) 0.80 % [facility] Neutrophils/100 WBC (Bld) 67 % High 36 - 65 % [facility] Nucleated RBC/100 WBC (Bld) [Ratio] 0.0 % 0.0 per 100 WBC [facility] Platelet mean volume (Bld) [Entitic vol] 10.0 fL 8.1 - 13.5 fL [facility] Platelets (Bld) [#/Vol] 247 10*3/uL [facility] RBC (Bld) [#/Vol] 4.25 10*6/uL 3.95 - 5.1 1 m/uL [facility] Segmented neutrophils/100 WBC (Bld) 5.57 % [facility] WBC other (Bld) [#/Vol] 8.2 [facility] Bon [facility] CBC with Diffon 06-02-2024 Abs. Basophil 0.06 k/uL Normal 0.00-0.20 [facility] Comment on above: Performed By: #### C DP #### [address] [address] Sheeter Machine Operator: Arpit Cruz MD Abs.Imm.Granulocyte 0.05 k/uL Normal 0.00-0.30 [facility] Comment on above: Performed By: #### C DP #### [place] [address] [employer]eter Machine Operator: Arpit Cruz MD Abs.Neutrophil (Seg) 5.57 k/uL Normal 1.50-8.10 [facility] Comment on above: Performed By: #### C DP #### [place] [address] [employer] Machine Operator: Arpit Cruz MD Basophils/100 WBC (Bld) 1 % Normal 0-2 [facility] Comment on above: Performed By: #### C DP #### [address] [address] [employer] Machine Operator: Arpit Cruz MD Eosinophils (Bld) [#/Vol] 0.09 10*3/uL Normal 0.00-0.44 [facility] Comment on above: Performed By: #### C DP #### [address] [address] [employer] Machine Operator: Arpit Cruz MD Eosinophils/100 WBC (Bld) 1 % Normal 1-4 [facility] Comment on above: Performed By: #### C DP #### [address] [address] [employer] Machine Operator: Arpit Cruz MD Erythrocyte distribution width (RBC) [Ratio] 12.5 % Normal 11.8-14.4 [facility] Comment on above: Performed By: #### C DP #### [address] [address] [employer] Machine Operator: Arpit Cruz MD Hematocrit (Bld) [Volume fraction] 41.5 % Normal 36.3-47.1 [facility] Comment on above: Performed By: #### C DP #### [address] [address] [employer]eter Machine Operator: Arpit Cruz MD Hemoglobin (Bld) [Mass/Vol] 13.2 g/dL Normal 11.9-15.1 [facility] Comment on above: Performed By: #### C DP #### [address] [address] [employer]eter Machine Operator: Arpit Cruz MD Immature granulocytes/100 WBC (Bld) 1 % High 0 [facility] Comment on above: Performed By: #### C DP #### [address] [address] [employer]eter Machine Operator: Arpit Cruz MD Lymphocytes (Bld) [#/Vol] 1.62 10*3/uL Normal 1.10-3.70 [facility] Comment on above: Performed By: #### C DP #### [address] [address] [employer]eter Machine Operator: Arpit Cruz MD Lymphocytes/100 WBC (Bld) 20 % Low 24-43 [facility] Comment on above: Performed By: #### C DP #### [address] [address] [employer]eter Machine Operator: Arpit Cruz MD MCH (RBC) [Entitic mass] 31.1 pg Normal 25.2-33.5 [facility] Comment on above: Performed By: #### C DP #### [address] [address] [employer]eter Machine Operator: Arpit Cruz MD MCHC (RBC) [Mass/Vol] 31.8 g/dL Normal 28.4-34.8 [facility] Comment on above: Performed By: #### C DP #### [address] [address] [employer]eter Machine Operator: Arpit Cruz MD MCV (RBC) [Entitic vol] 97.6 fL Normal 82.6-102.9 [facility] Comment on above: Performed By: #### C DP #### [address] [address] [employer]eter Machine Operator: Arpit Cruz MD Monocytes (Bld) [#/Vol] 0.80 10*3/uL Normal 0.10-1.20 [facility] Comment on above: Performed By: #### C DP #### [address] [address] [employer]eter Machine Operator: Arpit Cruz MD Monocytes/100 WBC (Bld) 10 % Normal 3-12 [facility] Comment on above: Performed By: #### C DP #### [address] [address] Sheeter Machine Operator: Arpit Cruz MD Neutrophil (Seg) 67 % High 36-65 [facility] Comment on above: Performed By: #### C DP #### [address] [address] Sheeter Machine Operator: Arpit rCuz MD NRBC Automated 0.0 per 100 WBC Normal 0.0 [facility] Comment on above: Performed By: #### C DP #### [address] [address] Sheeter Machine Operator: Arpit Cruz MD Platelet mean volume (Bld) [Entitic vol] 10.0 fL Normal 8.1-13.5 [facility] Comment on above: Performed By: #### C DP #### [facility] [address] [place] [address] Sheeter Machine Operator: Arpit Cruz MD Platelets (Bld) [#/Vol] 247 10*3/uL Normal 138-453 [facility] Comment on above: Performed By: #### C DP #### [facility] [address] [place] [address] Sheeter Machine Operator: Arpit Cruz MD RBC (Bld) [#/Vol] 4.25 10*6/uL Normal 3.95-5.11 [facility] Comment on above: Performed By: #### C DP #### [facility] [address] [place] [address] Sheeter Machine Operator: Arpit Cruz MD WBC (Bld) [#/Vol] 8.2 10*3/uL Normal 3.5-11.3 [facility] Comment on above: Performed By: #### C DP #### [facility] [address] [place] [address] Sheeter Machine Operator: Arpit Cruz MD Pathology Request for Lab Co rpon 03-20-2024 Pathology Request for Lab Dorothy Normal [facility] Comment on above: Order Comment: PATHO LOGY GI SPECIMEN Result Comment: See report. Scanned copy available in EMR. PERFORMED BY: [place] [address] PATHOLOGIST HHA HELENE LEON M.D. Performed By: #### P ATH TO [facility] #### [address] 10-02-2023 L Specimen: [id number] Received: 10/02/23 Status: OJ Yuniel Num: [id number] Spec Type: Surgical Subm Dr: Sunny Torers MD Tissues: A GASTRIC FOR HP (GASTRIC BX R/O H.PYLORI) B Colon Biopsy (RANDOM COLON BX R/O MICROSCO) Procedures: HE/4, Gross/Micro L4/2, H PYLORI Age/ Patient Sex Location Account Attending Physician Arianne Murdock 78/F [id number] Sunny Torres MD SPEC NUM: [id number] RECD: 10/02/23 STATUS: OJ BRICE NUM: [id number] TEO: 10/02/23 [facility] DR: Sunny Torres MD ENTERED: 10/02/23-1023 [facility] DR: SPEC TYPE: Surgical DEPT: S ORDERED: [...] date of and random colon ---- Specimen: [id number] Received: 10/02/23 Status: OJ Laraedwige Num: [id number] Spec Type: Surgical Subm Dr: Sunny Torres MD Tissues: A GASTRIC FOR HP (GASTRIC BX R/O H.PYLORI) B Colon Biopsy (RANDOM COLON BX R/O MICROSCO) Procedures: HE/4, Gross/Micro L4/2, H PYLORI ---- Patient: Arianne Murdock [id number] (Continued) ---- Specimen: [id number] Received: 10/02/23 (Continued) Gross Description (Continued) Signed (signature on file) Patito Grimm MD 10/03/23 1430 ---- Specimen: [id number] Received: 10/02/23 Status: OJ Brice Num: [id number] Spec Type: Surgical Subm Dr: Sunny Torres MD Tissues: A GASTRIC FOR HP (GASTRIC BX R/O H.PYLORI) B Colon Biopsy (RANDOM COLON BX R/O MICROSCO) Procedures: HE/4, Gross/Micro L4/2, H PYLORI ---- Patient: Arianne Murdock [id number] (Continued) ---- Specimen: [id number] Received: 10/02/23 (Continued) Gross Description (Continued) biopsy are 2 galvan translucent soft tissue fragments, 0.3 and 0.6 cm in greatest dimensions. Entirely submitted in one cassette labeled B1. CPT Codes [id number] ---- ---- Specimen: [id number] Received: 10/02/23 Status: OJ Brice Num: [id number] Spec Type: Surgical Subm Dr: Sunny Torres MD Tissues: A GASTRIC FOR HP (GASTRIC BX R/O H.PYLORI) B Colon Biopsy (RANDOM COLON BX R/O MICROSCO) Procedures: HE/4, Gross/Micro L4/2, H PYLORI ---- Patient: Arianne Murdock [id number] (Continued) ---- Signed (signature on file) Chin-Truong Grimm MD 10/03/23 1430 Normal [facility] CALCIUMon 10-03-2022 Calcium [Mass/Vol] 8.9 mg/dL Normal 8.5-10.1 [facility] Comment on above: Performed By: #### VALERIO MADRIGAL #### [facility] [address] [place] [address] Dr. Dnag Grimm CREATININEon 10-03-2022 Creatinine [Mass/Vol] 1.03 mg/dL Critically high 0.55-1.02 [facility] Comment on above: Performed By: #### VALERIO MADRIGAL #### [facility] [address] [place] [address] Dr. Dang Grimm EGFR-AF BANGLADESHI >60 Normal >=60 [facility] Comment on above: Performed By: ###VALERIO NIEVES #### [facility] [address] [place] [address] Dr. Dang Grimm EGFR-NON AF BANGLADESHI 52 mL/min/1.73m2 Critically low >=60 [facility] Comment on above: Performed By: ###VALERIO NIEVES #### [facility] [address] [place] [address] Dr. Dang Grimm Covid-19 PCR (CVDTB)on SARS-CoV-2 (COVID-19) RNA GENARO+probe Ql (Unsp spec) Not detected Normal NOT DETECTED [facility] Comment on above: Result Comment: This test is not yet approved or cleared by the [place] FDA. When there are no FDA-approved or cleared tests available, and other criteria are met, FDA can make tests available under an emergency access mechanism called an Emergency Use Authorization (EUA). The EUA for this test is supported by the [place] of Health and Human Service's (HHS's) declaration [...] SARS-CoV-2. Performed By: #### C VDTB #### [facility] [address] [place] [address] Dr. Dang Grimm ANAon 04-20-2022 OCTAVIA PATTERN SPECKLED Normal [facility] Comment on above: Result Comment: [...] authority. Performed By: #### 1 0196 #### [facility] [address] [place] [address], [facility] OCTAVIA SCREEN 1:40 Normal <1:40,1:40 [facility] Comment on above: Result Comment: Test performed using MELCHOR IFA OCTAVIA Hep-2 Test, a pre-standardized assay designed for the qualitative and semi-quantitative detection of antinuclear antibodies. Performed By: #### 1 0196 #### [facility] [address] [facility]. [address] C REACTIVE PROTEINon CRP [Mass/Vol] 2.5 mg/L Normal 0.0-7.0 [facility] Comment on above: Performed By: #### 6 1405, 69524 #### [facility] [address] [facility]. [address] CBC COMPLETE BLOOD COUNTon 0 04-20-2022 Erythrocyte distribution width (RBC) [Ratio] 12.4 % Normal 11.5-15.0 [facility] Comment on above: Performed By: #### 5 6506, 48874 #### [facility] [address] [facility]. [address] Hematocrit (Bld) [Volume fraction] 41.6 % Normal 36.0-45.0 [facility] Comment on above: Performed By: #### 5 6506, 70432 #### [facility] [address] [place] [address], [facility] Hemoglobin (Bld) [Mass/Vol] 13.7 g/dL Normal 12.0-15.0 [facility] Comment on above: Performed By: #### 5 6506, 46186 #### [facility] [address] [facility] [place] [address], [facility] MCH (RBC) [Entitic mass] 31.4 pg Normal 27.0-33.0 [facility] Comment on above: Performed By: #### 5 6506, 97749 #### [facility] [address] [facility] [place] [place] [address], [facility] MCHC (RBC) [Mass/Vol] 32.9 g/dL Normal 32.0-35.0 [facility] Comment on above: Performed By: #### 5 6506, 56216 #### [facility] [address] [place] [address], [facility] MCV (RBC) [Entitic vol] 95.2 fL Normal 82.0-98.0 [facility] Comment on above: Performed By: #### 5 650, 92382 #### [facility] [address] [place] [address], [facility] Nucleated RBC/100 WBC (Bld) [Ratio] 0 % Normal 0-0 [facility] Comment on above: Performed By: #### 5 6506, 04553 #### [facility] [address] [place] [address], [facility] PLAT CNT 248 10*3/uL Normal 150-400 [facility] Comment on above: Performed By: #### 5 6506, 85562 #### [facility] [address] [place] [address], [facility] RBC (Bld) [#/Vol] 4.37 10*6/uL Normal 3.80-5.00 [facility] Comment on above: Performed By: #### 5 6506, 20460 #### [facility] [address] [place] [address], [facility] WBC (Bld) [#/Vol] 5.54 10*3/uL Normal 4.00-10.60 [facility] Comment on above: Performed By: #### 5 6506, 96349 #### [facility] [address] [facility] CERVICAL SPINE 4 OR 5 VIEWS [facility] Department of Radiology [address] [place] [address] [phone] ======== Patient Name: ARIANNE MURDOCK : 1945 Sex: F Age: Race: White Pt. Location: [facility] Patient Status: O Ordered Date: [...] C3 Electronically signed: Christian Upton. Transcribed by: [email or web address], User Resident: Electronically Signed by: CHRISTIAN UPTON @ 04/20/2022 02:33 PM Normal [facility] Comment on above: Order Comment: Views (X-RAY, CERVICAL SPINE): AP, Lateral, Odontoid, Flexion, Extension COMP METABOLIC PANELon 04-20 Albumin [Mass/Vol] 4.1 g/dL Normal 3.5-5.[address] [facility] Comment on above: Performed By: #### 3 5515, 06094, 75592 #### [facility] [address] [place] [address], [place] ALKALINE PHOSPH 63 IU/L Normal 34-104 [facility] Comment on above: Performed By: #### 3 5515, 15837, 93311 #### [facility] [address] [place] [address], [place] ALT [Catalytic activity/Vol] 15 U/L Normal 7-52 [facility] Comment on above: Performed By: #### 3 5515, 99262, 17930 #### [facility] [address] [place] [address], [place] AST [Catalytic activity/Vol] 22 U/L Normal 13-39 [facility] Comment on above: Performed By: #### 3 5515, 90433, 96408 #### [facility] [address] [place] [address], [place] Bilirubin [Mass/Vol] 0.5 mg/dL Normal 0.3-1.0 [facility] Comment on above: Performed By: #### 3 5515, 89030, 36433 #### [facility] [address] [place] [address], [place] Calcium [Mass/Vol] 10.2 mg/dL Normal 8.6-10.[address] [facility] Comment on above: Performed By: #### 3 5515, 32576, 81605 #### [facility] [address] [place] [address], [place] Chloride [Moles/Vol] 105 mmol/L Normal 98-107 [facility] Comment on above: Performed By: #### 3 5515, 92254, 47369 #### [facility] [address] [place] [address], [place] CO2 [Moles/Vol] 25 mmol/L Normal 21-31 [facility] Comment on above: Performed By: #### 3 5515, 35624, 87481 #### [facility] [address] [place] [address], [place] Creatinine [Mass/Vol] 0.95 mg/dL Normal 0.60-1.20 [facility] Comment on above: Performed By: #### 3 5515, 34026, 53654 #### [facility] [address] [place] [address], [place] GFR/1.73 sq M.predicted among non-blacks MDRD (S/P/Bld) [Vol rate/Area] mL/min/{1.73_m2} Normal >60 [facility] Comment on above: Result Comment: [facility]'s estimated glomerular filtration rate (eGFR) will [...] of individuals. Performed By: #### 3 5515, 07241, 74627 #### [facility] [address] [place] [address], [place] Glucose [Mass/Vol] 88 mg/dL Normal 70-100 [facility] Comment on above: Performed By: #### 3 5515, 54901, 23013 #### [facility] [address] [place] [address], [place] Potassium [Moles/Vol] 4.5 mmol/L Normal 3.5-5.1 [facility] Comment on above: Performed By: #### 3 5515, 64263, 18294 #### [facility] [address] Protein [Mass/Vol] 6.8 g/dL Normal 6.0-8.[address] [facility] Comment on above: Performed By: #### 3 5515, 07282, 54338 #### [facility] [address] Sodium [Moles/Vol] 138 mmol/L Normal 136-[address] [facility] Comment on above: Performed By: #### 3 5515, 61285, 74429 #### [facility] [address] [place] [address], [facility] Urea nitrogen [Mass/Vol] 29 mg/dL High 7-25 [facility] Comment on above: Performed By: #### 3 5515, 24410, 52158 #### [facility] [address] [place] [id number] 04-20-2022 CYCLIC CIT PEP 2 Units Normal 0-19 [facility] Comment on above: Result Comment: [...] be monitored and testing repeated. Performed By: [facility] [address] [place] [address] Rayon Winder: Brett Tamez MD, PhD FERRITINon 04-20-2022 Ferritin [Mass/Vol] 43 ng/mL Normal 11-307 [facility] Comment on above: Performed By: #### 3 5515, 25102, [address] #### [address] HAND LEFT 3 VWSon 04-20-2022 HAND LEFT 3 VWS [facility] Department of Radiology [address] [place] [address] ======== Patient Name: ARIANNE MURDOCK : 1945 Sex: F Age: Race: White Pt. Location: [facility] Patient Status: O Ordered Date: [...] report. Electronically signed: Chelita Lazcano. Transcribed by: [email or web address], User Resident: NIRMALA MONGE Electronically Signed by: CHELITA LAZCANO @ 04/20/2022 01:29 PM I personally read this/these film(s) with this resident Normal [facility] Comment on above: Order Comment: Evalu ate HAND RIGHT 3 [facility] 2 HAND RIGHT 3 [facility] Department of Radiology [address] [place] [phone] ======== Patient Name: ARIANNE MURDOCK : 1945 Sex: F Age: Race: White Pt. Location: [facility] Patient Status: O Ordered Date: 04/20/2022 10:50:00 AM Completed Date: 04/20/2022 11:42 AM Requesting Provider: MICHAEL HAHN Attending Provider: ARIADNA NOLAN Report Copy To: Signs & Symptoms: M79.641 Pain in right hand I10 History: Chloe Comments: Evaluate Exam: HAND RIGHT 3 [facility] ======== HAND RIGHT 3 VWS 04/20/2022 [...] report. Electronically signed: Chelita Lazcano. Transcribed by: [email or web address], User Resident: NIRMALA MONGE Electronically Signed by: CHELITA LAZCANO @ 04/20/2022 01:43 PM I personally read this/these film(s) with this resident Normal [facility] Comment on above: Order Comment: Evalu ate RHEUMATOID FACTOR SERUMon RA <20 Normal 0-20 [facility] Comment on above: Performed By: #### 6 1405, [id number] #### [facility] [address] [place] [address], [facility] SEDIMENTATION RATEon 022 SED RATE 38 mm/hr High 0-20 [facility] Comment on above: Performed By: #### 5 [id number], [id number] ####[facility] [place] [address], [facility] TIBC- INCLUDES IRONon 2021 FE SATURATION 30 % Normal 20-50 [facility] Comment on above: Performed By: #### 3 9515, 10214, [id number] #### [facility] [address] [place] [address], [facility] Iron [Mass/Vol] 115 ug/dL Normal 50-212 [facility] Comment on above: Performed By: #### 3 5515, 78215, [id number] #### [facility] [address] [place] [address], [facility] TIBC 378 mcg/dL Normal 250-450 [facility] Comment on above: Performed By: #### 3 5515, 51552, [id number] #### [facility] [address] [place] [address], [facility] UIBC 263 mcg/dL Normal 155-355 [facility] Comment on above: Performed By: #### 3 5515, 18322, [id number] #### [facility] [address] [facility] [facility] [address] [place] [id number], [facility] CALCIUMon 04-09-2022 Calcium [Mass/Vol] 9.6 mg/dL Normal 8.5-10.1 [facility] Comment on above: Performed By: #### VALERIO MADRIGAL #### [facility] [address] [address] [address] Dang Grimm CREATININEon 04-09-2022 Creatinine [Mass/Vol] 1.07 mg/dL Critically high 0.55-1.02 [facility] Comment on above: Performed By: #### VALERIO MADRIGAL #### [facility] [address] [address] [address] Dang Grimm EGFR-AF BANGLADESHI >60 Normal >=60 [facility] Comment on above: Performed By: #### VALERIO MADRIGAL #### [facility] [address] [address] [address] Dang Grimm EGFR-NON AF BANGLADESHI 50 mL/min/1.73m2 Critically low >=60 [facility] Comment on above: Performed By: #### VALERIO MADRIGAL #### [facility] [address] [address] [address] Dang Grimm Vital Signs Date Time Vital Sign Value Performing Clinician Facility 06-02-2024 14:33-0400 Body height 154.9 cm Stvz Schedule [facility] 06-02-2024 14:33-0400 Body mass index (BMI) [Ratio] 24 kg/m2 Stvz Schedule [employer] [facility] 06-02-2024 14:33-0400 Body weight 57.61 kg Stvz Schedule [employer] [facility] [employer] 06-02-2024 14:33-0400 Diastolic blood pressure 63 mm[Hg] Stvz Schedule [employer] [facility] [employer] 06-02-2024 14:33-0400 Heart rate 96 /min Stvz Schedule [employer] [facility] [employer] 06-02-2024 14:33-0400 Respiratory rate 16 /min Stvz Schedule [employer] [facility] [employer] 06-02-2024 14:33-0400 SaO2% (BldA) [Mass fraction] 97 % [facility] 06-02-2024 14:33-0400 Systolic blood pressure 132 mm[Hg] [facility] 03-20-2024 09:15-0400 Diastolic blood pressure 62 mm[Hg] MD Viky Stanford Work Phone: [facility] 03-20-2024 09:15-0400 Heart rate 72 /min MD Viky Stanford Work Phone: [facility] 03-20-2024 09:15-0400 Respiratory rate 20 /min MD Viky Stanford Work Phone: [facility] 03-20-2024 09:15-0400 SaO2% (BldA) [Mass fraction] 99 % MD Viky Stanford Work Phone: [facility] 03-20-2024 09:15-0400 Systolic blood pressure 115 mm[Hg] MD Viky Stanford Work Phone: [facility] 03-20-2024 07:18-0400 Body height 156.84 cm MD Viky Stanford Work Phone: [facility] 03-20-2024 07:18-0400 Body weight 55.33 kg MD Viky Stanford Work Phone: [facility] 03-16-2024 09:04-0400 Body height 156.84 cm MD Viky Stanford Work Phone: [facility] 03-16-2024 09:04-0400 Body mass index (BMI) [Ratio] 22.8 kg/m2 MD Viky Stanford Work Phone: [facility] 03-16-2024 09:04-0400 Body weight 56.24 kg MD Viky Stanford Work Phone: [facility] 03-16-2024 09:04-0400 Diastolic blood pressure 72 mm[Hg] MD Viky Stanford Work Phone: [facility] 03-16-2024 09:04-0400 Heart rate 81 /min MD Viky Stanford Work Phone: [facility] 03-16-2024 09:04-0400 Systolic blood pressure 122 mm[Hg] MD Viky Stanford Work Phone: [facility] 10-02-2023 09:55-0500 Diastolic blood pressure 67 mm[Hg] MD Viky Stanford Work Phone: [facility] 10-02-2023 09:55-0500 Heart rate 80 /min MD Viky Stanford Work Phone: [facility] 10-02-2023 09:55-0500 Respiratory rate 16 /min MD Viky Stanford Work Phone: [facility] 10-02-2023 09:55-0500 SaO2% (BldA) [Mass fraction] 99 % MD Viky Stanford Work Phone: [facility] 10-02-2023 09:55-0500 Systolic blood pressure 108 mm[Hg] MD Viky Stanford Work Phone: [facility] 10-02-2023 07:07-0500 Body height 160.02 cm MD Viky Stanford Work Phone: [facility] 10-02-2023 07:07-0500 Body weight 56.69 kg MD Viky Stanford Work Phone: [facility] 08-30-2023 10:30-0500 Body height 157.48 cm Viky Stanford Other [facility] 08-30-2023 10:30-0500 Body mass index (BMI) [Ratio] 21.73 kg/m2 Viky Stanford Other [facility] [employer] Other 08-30-2023 10:30-0500 Body weight 53.89 kg Viky Stanford Other [facility] [employer] Other 08-30-2023 10:30-0500 Body weight 53.88 kg MD Viky Stanford Work Phone: [facility] 08-30-2023 10:30-0500 Diastolic blood pressure 74 mm[Hg] Viky Stanford Other [facility] 08-30-2023 10:30-0500 Systolic blood pressure 122 mm[Hg] Viky Stanford Other [facility] 08-21-2023 13:45-0500 Body height 157.48 cm Imad Asaad Other [facility] 08-21-2023 13:45-0500 Body mass index (BMI) [Ratio] 21.58 kg/m2 Imad Asaad Other [facility] [employer] Other 08-21-2023 13:45-0500 Body weight 53.52 kg Imad Asaad Other [facility] 07-15-2023 11:30-0500 Body height 157.48 cm Viky Stanford Other [facility] 07-15-2023 11:30-0500 Body mass index (BMI) [Ratio] 21.73 kg/m2 Viky Stanford Other [facility] [employer] Other 07-15-2023 11:30-0500 Body weight 53.89 kg Viky Stanford Other [facility] [employer] Other 07-15-2023 11:30-0500 Body weight 53.88 kg MD Viky Stanford Work Phone: [facility] 07-15-2023 11:30-0500 Diastolic blood pressure 78 mm[Hg] Viky Stanford Other [facility] 07-15-2023 11:30-0500 Systolic blood pressure 148 mm[Hg] Viky Stanford Other [facility] 07-06-2023 09:20-0500 Body height 157.48 cm MD Viky Stanford Work Phone: [facility] 07-06-2023 09:20-0500 Body weight 55.51 kg MD Viky Stanford Work Phone: [facility] Encounters Encounter Date Encounter Type Care Provider Facility Start: 06-26-2024 End: 06-28-2024 ambulatory [place] [facility] Start: 06-26-2024 End: 06-28-2024 Subsequent hospital visit by physician Echo Ham DO Work Phone: [facility] CT Scan Comment on above: Sacroiliitis (HCC) Start: 06-09-2024 End: 06-09-2024 ambulatory ECHO [facility] Start: 06-02-2024 End: 06-06-2024 ambulatory ECHO Z [facility] Start: 06-02-2024 Encounter for other preprocedural examination [facility] Start: 06-02-2024 End: 06-06-2024 Patient encounter status Hoa Moody [facility] Start: 06-02-2024 End: 06-06-2024 Subsequent hospital visit by physician Hoa Dias Pat Schedule HOA Dias Pre-Admit Testing Comment on above: Pre-op testing (Prim edil Dx) Start: 04-29-2024 End: 04-29-2024 ambulatory CARI B APLING Not Available Start: 04-15-2024 End: 04-15-2024 ambulatory CARI B APLING Not Available Start: 03-20-2024 Non-patient / Non-visit MD Viky Stanford Work Phone: [facility] Gastroenterology Work Phone: Start: 03-20-2024 End: 03-20-2024 Admission to same day surgery center MD Viky Stanford Work Phone: [facility] Work Phone: Start: 03-20-2024 End: 03-20-2024 ambulatory MD Viky Stanford Work Phone: [facility] Work Phone: Start: 03-18-2024 End: 03-18-2024 ambulatory CARI B APLING Not Available Start: 03-17-2024 Preoperative state MD Viky bliss Work Phone: [facility] Start: 03-16-2024 End: 03-16-2024 ambulatory CARI B APLING Not Available Start: 03-16-2024 End: 03-16-2024 Patient encounter procedure MD Viky Stanford Work Phone: [facility] Work Phone: Start: 10-14-2023 End: 10-15-2023 ambulatory Ara Maier MD Facility:[facility] Start: 10-04-2023 End: 10-04-2023 ambulatory Imad Asaad Other [email or web address] Other Start: 10-04-2023 Telephone encounter Imravindra Torres [facility] Start: 10-02-2023 Non-patient / Non-visit MD Viky Stanford Work Phone: [facility] Gastroenterology Work Phone: Start: 10-02-2023 End: 10-02-2023 Admission to same day surgery center MD Viky Stanford Work Phone: [facility] Work Phone: Start: 10-02-2023 End: 10-02-2023 ambulatory MD Viky Stanford Work Phone: [facility] Work Phone: Start: 09-23-2023 End: 09-23-2023 ambulatory Viky Stanford Other [email or web address] Other Start: 09-23-2023 Telephone encounter Viky Stanford [facility] Start: 09-09-2023 End: 09-09-2023 ambulatory CARI B APLING Not Available Start: 09-04-2023 End: 09-04-2023 ambulatory CARI B APLING Not Available Start: 09-03-2023 End: 09-03-2023 ambulatory Viky Stanford Other [email or web address] Other Start: 09-03-2023 Telephone encounter Viky Stanford [employer] Start: 08-30-2023 End: 08-30-2023 ambulatory Viky Stanford Other [email or web address] Other Start: 08-30-2023 Office outpatient visit 15 minutes Viky Stanford [facility] Start: 08-30-2023 End: 08-30-2023 Patient encounter procedure MD Viky Stanford Work Phone: [facility]- Start: 08-23-2023 End: 08-23-2023 ambulatory Viky Satnford Other [email or web address] Other Start: 08-23-2023 Telephone encounter Viky Stanford [facility] Start: 08-21-2023 End: 08-21-2023 ambulatory Imad Asaad Other [email or web address] Other Start: 08-21-2023 Office outpatient ne w 45 minutes Imad Asaad [facility] Gastroenterology Start: 08-21-2023 End: 08-21-2023 Patient encounter procedure MD Viky Stanford Work Phone: [facility] G[facility] Work Phone: Start: 07-15-2023 End: 07-15-2023 ambulatory Viky Stanford Other [employer] [facility] [employer] Other Start: 07-15-2023 Office outpatient visit 15 minutes Viky Stanford [facility] Start: 07-15-2023 Telephone encounter Viky Stanford [facility] Start: 07-15-2023 End: 07-15-2023 Patient encounter procedure MD Viky Stanford Work Phone: [facility] Work Phone: Start: 07-06-2023 End: 07-06-2023 Patient encounter procedure MD Viky Stanford Work Phone: [facility] Work Phone: Start: 05-06-2023 End: 05-07-2023 ambulatory Ara Maier MD Facility:[facility] Start: 04-22-2023 End: 04-23-2023 ambulatory Ara Maier MD Facility:[facility] Start: 10-03-2022 End: 10-05-[address] VIKY STANFORD Facility:[facility] Start: 09-27-2022 End: 09-28-[address] MASSIMO MATTHEWS . Facility:[facility] Start: 09-11-2022 End: 09-11-[address] MASSIMO MATTHEWS . Facility:[facility] Start: 09-07-2022 End: 10-17-[address] MASSIMO MATTHEWS . Facility:[facility] Start: 09-04-2022 End: 09-05-[address] AMSSIMO MATTHEWS . Facility:[facility] Start: 07-26-2022 Encounter for preprocedural laboratory examination DR MASSIMO MATTHEWS . [facility] Start: 07-24-2022 End: 07-24-[address] MASSIMO [...] Start: 04-20-2022 End: 04-21-2022 ambulatory ARIADNA NOLAN Facility:[facility] Start: 04-09-2022 End: 04-10-[address] VIKY STANFORD Facility: Start: 02-27-2022 End: 02-28-2022 ambulatory DEFAULT PHYSICIAN Facility:[facility] Start: 02-22-2022 End: 02-23-[address] MASSIMO MATTHEWS . Facility: Start: 12-06-2021 ambulatory MICHELE SALDAÑA . Facility:[facility] Start: 11-30-2021 End: 12-01-[address] MASSIMO MATTHEWS . Facility: Start: 10-25-2020 Pre-procedure evaluation check Viky Stanford Other [email or web address] Other Procedures Date Procedure Procedure Detail Performing [...] DTaP/Tdap/Td vaccine (2 - Td or Tdap) [facility] Start: 06-09-2024 End: 06-09-2024 Admission to same day surgery center 06/09/2024 7:30 AM EDT - 06/09/2024 9:30 [place] [address] [place], [place] [id number] Echo Ham, DO [address] [place], [place] [id number] RIGHT MINIMALLY INVASIVE SURGERY SACROILIAC JOINT FUSION POSTERIOR WITH SI BONE [facility] [place] Comment on above: RIGHT MINIMALLY INVA SIVE SURGERY SACROILIAC JOINT FUSION POSTERIOR WITH SI BONE Start: 06-09-2024 End: 06-09-2024 Anesthesia consultation 06/09/2024 7:30 AM EDT [place] [facility] [address] [place], [place] [id number] Ricco Foote MD [address] [facility] [address] [place] [address] [facility] [place] Start: 06-09-2024 End: 06-09-2024 Arthrodesis sacroiliac joint percutaneous SACROILIAC JOINT FUSION POSTERIOR Chronic right SI joint pain 06/09/2024 7:30 AM EDT [facility] Start: 06-09-2024 Subsequent hospital visit by physician 06/09/2024 7:30 AM EDT Hospital [place] [address] [place] [address] Echo Ham, DO [address] [place] [address] [facility] [place] Start: 05-27-2024 Annual Wellness Visi t (Medicare) Annual Wellness Visit (Medicare) [employer] [facility] [employer] Start: 04-12-2024 COVID-19 Vaccine ( season) COVID-19 Vaccine () [facility] Start: 03-20-2024 [facility] Start: 10-02-2023 [facility] Start: 2001 Screening for osteoporosis DEXA (modify frequency per FRAX score) [facility] Start: 1964 Hepatitis C screening Hepatitis C sc reen [facility] Start: 1958 Depression Screen Depression Screen [facility] Patient Education Hemorrhoids (D C) Know your Meds [facility] Work Phone: Immunizations Immunization Date Immunization Notes Care Provider Fa cility 05-17-2022 zoster vaccine, live Viky Stanford Other [facility] 04-23-2022 influenza virus vaccine, split virus (incl. purified surface antigen) Viky Stanford Other [email or web address] Other 04-23-2022 influenza virus vaccine, unspecified formulation MD Viky Stanford Work Phone: [facility] 04-23-2022 pneumococcal polysaccharide vaccine, 23 valent Viky Stanford Other [facility] 04-23-2022 tetanus toxoid, adsorbed Viky Stanford Other [facility] 05-25-2021 influenza virus vaccine, split virus (incl. purified surface antigen) Viky Stanford Other [email or web address] Other 05-25-2021 influenza virus vaccine, unspecified formulation MD Viky Stanford Work Phone: [facility] 10-18-2020 COVID-19 Vaccine Moderna - Documentation Purposes Only Viky Stanford Other [facility] 09-19-2020 COVID-19 Vaccine Moderna - Documentation Purposes Only Viky Stanford Other [facility] 04-16-2020 influenza virus vaccine, split virus (incl. purified surface antigen) Viky Stanford Other [facility] [employer] Other 04-16-2020 influenza virus vaccine, unspecified formulation MD Viky Stanford Work Phone: [facility] 05-12-2019 influenza virus vaccine, split virus (incl. purified surface antigen) Viky Stanford Other [facility] [employer] Other 05-12-2019 influenza virus vaccine, unspecified formulation MD Viky Stanford Work Phone: [facility] 04-18-2018 influenza virus vaccine, split virus (incl. purified surface antigen) Viky Stanford Other [facility] [employer] Other 04-18-2018 influenza virus vaccine, unspecified formulation MD Viky Stanford Work Phone: [facility] 07-10-2017 pneumococcal conjuga te vaccine, 13 valent Viky Stanford Other [facility] 04-18-2017 influenza virus vaccine, split virus (incl. purified surface antigen) Viky Stanford Other [facility] [employer] Other 04-18-2017 influenza virus vaccine, unspecified formulation MD Viky Stanford Work Phone: [facility] 05-09-2016 influenza virus vaccine, split virus (incl. purified surface antigen) Viky Stanford Other [facility] [employer] Other 05-09-2016 influenza virus vaccine, unspecified formulation MD Viky Stanford Work Phone: [facility] 05-27-2013 tetanus and diphther ia toxoids, adsorbed, preservative free, for adult use (5 Lf of tetanus toxoid and 2 Lf of diphtheria toxoid) Viky Stanford Other [facility] 12-24-2011 pneumococcal polysaccharide vaccine, 23 valent Viky Stanford Other [facility] Payers Date Payer Category Payer Self-pay 2022 Medicare 2022 Unknown 1959 Medicare [id number] 1959 Unknown [id number] 1946 Unknown [id number] 2.16.8 40.1.152400.3.579.2.647 1946 Unknown [id number] 2.16.8 40.1.992851.3.579.2.647 1946 Unknown [id number] 2.16.84 0.1.990176.3.579.2.593 1946 Unknown [id number] 2.16.84 0.1.024586.3.579.2.593 1946 Unknown [id number] 2.16.84 0.1.294895.3.579.2.593 1946 Unknown [id number] 2.16.84 0.1.918704.3.579.2.593 1946 Unknown [id number] 2.16.84 0.1.280121.3.579.2.593 1946 Unknown [id number] 2.16.84 0.1.549035.3.579.2.593 1946 Unknown [id number] 2.16.84 0.1.955561.3.579.2.593 1946 Unknown [id number] 2.16.84 0.1.742631.3.579.2.593 1946 Unknown [id number] 2.16.84 0.1.255147.3.579.2.593 1946 Unknown [id number] 2.16.84 0.1.027341.3.579.2.593 1946 Unknown [id number] 2.16.84 0.1.869465.3.579.2.593 1946 Unknown [id number] 2.16.84 0.1.946983.3.579.2.593 1946 Unknown [id number] 2.16.84 0.1.150987.3.579.2.593 1946 Unknown [id number] 2.16.84 0.1.612095.3.579.2.593 1946 Unknown [id number] 2.16. 840.1.439352.3.579.2.196 1946 Unknown [id number] 2.16. 840.1.706398.3.579.2.196 1946 Unknown [id number] 2.16. 840.1.929402.3.579.2.196 1946 Unknown [id number] 2.16.84 0.1.551668.3.579.2.1259 1946 Unknown [id number] 2.16.84 0.1.200018.3.579.2.1259 1946 Unknown [id number] 2.16.84 0.1.697200.3.579.2.1259 1946 Unknown [id number] 2.16.84 0.1.521979.3.579.2.1259 1946 Unknown [id number] 2.16.84 0.1.246547.3.579.2.1259 1946 Unknown [id number] 2.16.84 0.1.905077.3.579.2.1259 1946 Unknown [id number] 2.16.84 0.1.517544.3.579.2.1259 1946 Unknown [id number] 2.16. 840.1.852482.3.579.2.175 1946 Unknown [id number] 2.16. 840.1.579238.3.579.2.175 1946 Unknown [id number] 2.16.8 40.1.865802.3.579.2.176 Medicare Medicare Outpatient [id number] Unknown [id number] 2.16.8 40.1.823128.3.579.2.531 Social History Date Type Detail Facility Unknown if ever smoked [email or web address] Other Start: 06-02-2024 End: 06-09-2024 Sex Assigned At [facility] Other Start: 10-02-2023 End: 06-02-2024 Tobacco smoking status NHIS Never smoked tobacco (finding) [facility] Start: 1945 Sex Assigned At Female F [facility] Start: 06-02-2024 Tobacco use and exposure Smokeless tobacco non-user RE2 Start: 06-02-2024 End: 06-10-2024 Alcoholic beverage intake Current drinker of alcohol (finding) RE2 Start: 06-02-2024 End: 06-09-2024 History of Social function RE2 Physical abuse Denies [employer] Start: 06-02-2024 Alcohol Comment occasioally only RE2 Start: 1945 Sex assigned at Not on file B on [employer] Start: 06-07-2024 Gender identity Identifies as female gender (finding) RE2 Medical Equipment Procedure Code Equipment Code Equipment Origin al Text Equipment Identifier Dates Joint Sacroiliac 11.5x50 Mm [employer] - [id number] Start: 06-09-2024 Joint Sacroiliac 11.5x35 M[facility] [employer] - [id number] Start: 06-09-2024 Joint Sacroiliac 11.5x35 Mm [employer] - [id number] Start: 06-09-2024 Goals Date Patient Goal [...] at the surgery center C entrance) on ___[id number] by ____[id number] . Please stop any blood [...] drive you home after your procedure. Your independent driver must be 18 years of age [...] of surgery documented in this encounter [facility] 03-20-2024 Procedure note [facility] 10-02-2023 Procedure note [facility] 08-30-2023 Evaluation note Encounter Date Diagnosis [...] try OTC ones in meantime. Referral placed. [email or web address] Other 01-10-2024 Evaluation note* Encounter Date Diagnosis Assessment Notes Treatment Notes Treatment Clinical Notes Aug, GERD (gastroesophageal reflux disease) (ICD-10 - K21.9) Aug, Chronic diarrhea (ICD-10 - K52.9) Patient reports that her last colonoscopy was at the [facility] about 11 years ago and that she can not remember who preformed the procedure Aug, Abdominal pain (ICD-10 - R10.9) Aug, Weight loss, unintentional (ICD-10 - R63.4) Aug, Change in bowel habits (ICD-10 - R19.4) Patinet is advised to have a colonoscopy ordered, scheduled and prep instructions given today Risks and benefits of procedure explained to patient; patient verbalizes understanding. [email or web address] Other 12-04-2023 Evaluation note* Encounter Date Diagnosis [...] (ICD-10 - M81.0) Due for Dexa 08/2023 [email or web address] Other 02-16-2023 NoteCONSULTATION CONSULTATION DATE: 09/27/2022 HISTORY OF PRESENT ILLNESS: This is a 76-year-old female who returns to the clinic status post LES on 09/11/2022. The patient states she was afforded between 50-60% relief. Depending on her physical activity, determines her level of comfort. 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, housework and lifting greatly aggravate her [...] Patient is in agreement with this plan.[id number] NoteCONSULTATION CONSULTATION DATE: 09/04/2022 HISTORY OF PRESENT [...] patient understands and would like to proceed.[facility] [id number] NoteCONSULTATION CONSULTATION DATE: 07/11/2022 HISTORY OF PRESENT [...] followed up in the clinic post procedure.[facility] [id number] NoteCONSULTATION PROCEDURE DATE: 07/11/2022 PREOPERATIVE DIAGNOSIS: Bilateral [...] will be followed up in the clinic.[facility] 06-06-2022 NoteCONSULTATION CONSULTATION DATE: 06/06/2022 HISTORY OF [...] pain returning. 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 The patient has not seen a mechanical engineering specialist in the past. REVIEW OF SYSTEMS, [...] mg q.h.s. A referral to rheumatology near [place] will be sent on her behalf and I highly encouraged her to seek consultation, particularly since she has a familial history of autoimmune diseases. The patient agrees with the plan of care and will be followed up in the office in three months' time. IF Signed and Approved by: MICHELE SADLAÑA . 03/02/2022 14:16:00[facility]04-21-2022 NoteCONSULTATION Consultation Date:11/30/2021 PREOPERATIVE DIAGNOSIS: Right [...] will be followed up in the office. [facility] Signed and Approved by: MICHELE SALDAÑA . 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 Lying down and using heat decrease her pain. Prior to the procedure, she was in a state of acute pain and was placed on a short term course of [place] 5/325 b.i.d. p.r.n. Patient states she only [...] of care and would like to proceed. [facility] Signed and Approved by: MICHELE SALDAÑA . 12/06/2021 16:15:00[facility] HospitalEvaluation noteNo InformationNort [place] Other Evaluation noteNo assessment information available [facility] Work Phone: Evaluation note* Diagnosis Onset Date Resolution Status Lumbar spondylosis acute Preoperative clearance acute Situational depression acute [facility] Work Phone: Evaluoowvl note* Diagnosis Pre-op testing- Primary Preoperative examination, unspecified Chronic right SI joint pain Disorders of sacrum documented in this encounter [facility] note* Diagnosis Sacroiliitis (HCC) Sacroiliitis, not elsewhere classified documented in this encounter [facility] HealthHistory and physical note Author Sunny Torres [facility] October 02, 2023 8:54am Note Date/Time October 02, 2023 8:54am [facility] [address] [place] [address] Gastroenterology H&P Signed Patient: Arianne Murdock MR#: [id number] : 1945 Acct:[id number] Age/Sex: 78 / F Adm Date: 4 Loc: Room: Type: [facility] Attending Dr: Sunny Torres MD Copies [...] signed by Sunny Torres MD> 10/02/23 0854 [facility] Work Phone: History and physical note Author Sunny Torres [facility] March 20, 2024 8:43am Note Date/Time March 20, 2024 8:4 3am [facility] [address] [place] [address] Gastroenterology H&P Signed Patient: Arianne Murdock MR#: [id number] : 1945 Acct:[id number] Age/Sex: 78 / F Adm Date: 4 Loc: Room: Type: [facility] Attending Dr: Sunny Torres MD Copies [...] signed by Sunny Torres MD> 03/20/24 0843 [facility] Work Phone: History general Narrative - [...] shoulder pain 1982 Hospitalization History migraines 1992 [email or web address] Other Hospital Discharge instructions Additional Instructions DISCHARGE [...] up in the office - Office number [phone]. [facility] Work Phone: Summary Purpose Family History [...] 1 Chronic diarrhea (K5 2.9) Referral Organization [facility] [employer] Referring Provider First Name Viky Referring Provider Last Name Abdoulaye Referring Provider Specialty [facility] Referred Organization [facility] Gastroenterolo gy Referred Address [address],[address] Referred Provider Specialty Gastroentero logy Referral Priority Routine Reason *FU 09/06 R foot p ain Diagnosis 1 Pain of left great t oe (M79.675) Referral Organization [facility] pipo Referring Provider First Name Viky Referring Provider Last Name Abdoulaye Referring Provider Specialty [facility] Referred Organization [facility] Referred Provider Odin Chong Referred Address [address], [place],[address] Referred Provider Specialty Podiatry - S urgical Chiropody Referral Priority Routine General Notes Shefali Carroll 12:44:49 PM >received today, notes locked, ins attached, referral faxed Specialty Diagnoses / Procedures Referred By Contac t Referred To Contact Radiology Diagnoses Sacroiliitis (HCC) Procedures CT PELVIS WO CONTRAST Additional Contrast? None Echo Ham DO [id number] [place] [address] Referral ID Status Reason Start Date Expiration Date Visits Re quested Visits Authorized [id number] Closed 06/24/2024 06/24/2025 1 1 Chief Complaint [...] section and content) DATE CREATED AUTHOR 05/09/[address] [facility] DATE CREATED AUTHOR AUTHOR'S ORGANIZ ATION 11/17/2022 [facility] DATE CREATED AUTHOR AUTHOR'S ORGANIZ ATION 10/18/2023 [place] DATE CREATED AUTHOR AUTHOR'S ORGANIZ ATION 04/01/2024 [facility] DATE CREATED AUTHOR AUTHOR'S ORGANIZ ATION 05/01/2024 [facility] DATE CREATED AUTHOR AUTHOR'S ORGANIZ ATION 06/14/2024 [facility] DATE CREATED AUTHOR AUTHOR'S ORGANIZ ATION 06/30/2024 [facility] REASON FOR VISIT (unrecogniz ed section and content) Specialty Diagnoses / Procedures Referred By Contac t Referred To Contact Radiology Diagnoses Sacroiliitis (HCC) Procedures CT PELVIS WO CONTRAST Additional Contrast? None Echo Ham DO [id number] [place] [address] Referral ID Status Reason Start Date Expiration Date Visits Re quested Visits Authorized [id number] Closed 06/24/2024 06/24/2025 1 1 Care Teams [...] Team Status: Inactive Member Role Status Dates iVky Stanford MD Primary Care Provider Active Start: [...] Provider Act cara Start: March 20, 2024 Blow Torch Burner Relationship Specialty Start Date End Date Viky Stanford MD [address] [place] [id number] PCP - General Family Medicine 06/02/24 Blow Torch Burner Relationship Specialty Start Date End Date Viky Stanford MD [address] [place] [id number] PCP - General Family Medicine 06/02/24 FOR [...] BE BASED ON THE PRIMARY CLINICAL RECORDS. [facility]. provides no warranty or guarantee of the accuracy or completeness of information in this document.
[2024-07-06 10:55] VITALS: BP 151/65; PULSE 80; O2SAT 96
[2024-07-06 10:56] VITALS: BP 148/68; PULSE 88; O2SAT 96
--- NOTE | 2024-07-06 10:58 | P.ON_ITS ---
Date of procedure: 07/06/24 Pre-op diagnosis: Pain due to lumbar radiculopathy Post-op diagnosis: same as pre-op Procedure: Procedure: Right L5 selective nerve root block Medications: Bupivacaine 0.25% 1cc, lidocaine 2% 1cc, kenalog 80mg The patient was seen and examined in the preoperative holding area.? Informed consent was obtained and placed on the chart.? Patient was brought to the medical procedure unit and placed in the prone position where a timeout was completed verifying the correct patient, procedure site, position, and planned special equipment using sterile aseptic technique.? Under direct fluoroscopic visualization a 25-gauge Quincke tipped spinal needle was advanced to the designated neural foramen where contrast dye was injected to show adequate spread.? The needle was inserted at level right L5-S1. There was no evidence of vascular or adverse uptake.? Epidural spread was appreciated.? The above- mentioned injectate was then placed in a 1.5 mL aliquot preceded by negative aspiration.? The needle was removed.? The surgery site was covered.? Patient was taken to the postprocedural recovery area and monitored for an appropriate length of time before found suitable for discharge in the accompaniment of a responsible adult. Anesthesia: Local Surgeon: Ara Maier Pathology: none sent Condition: stable Disposition: no change
[2024-07-06] MEDS: 0.9 % SODIUM CHLORIDE 10 ML SYRINGE - SALINE FLUSH INJ (10:59)
[2024-07-06] MEDS: IOHEXOL 240 MG/ML - 10 ML VIAL 12 MG INJ (10:59)
[2024-07-06] MEDS: BUPIVACAINE HCL 0.25% PF 25 MG/10 ML VIAL INJ (10:59)
[2024-07-06] MEDS: LIDOCAINE HCL 2% 400 MG/20 ML MDV 3 ML INJ (10:59)
[2024-07-06] MEDS: TRIAMCINOLONE ACETONIDE 40 MG/ML VIAL 80 MG INJ (11:00)
== END 2024-07-06 11:26 | disposition home or self-care (01) ==
LOC: SURGOUT 10:02
PROVIDERS: PCP Family Medicine; Visit Provider Anesthesiology
DX: M54.16 Radiculopathy, lumbar region (principal)
CPT/HCPCS: 64483; J0665; J3301; Q9966

== ENCOUNTER 2024-07-15 10:51 | Outpatient (OUT) | payer MEDICARE, SELFPAY ==
--- NOTE | 2024-07-15 11:20 | P.CN_ITS ---
Consult Note: HPI Data of Consult Patient: known to practice within the last 3 years Consult date: 05/29/23 Requesting Physician: Melissa Soni NP Primary Care Provider: Patricia Nicolas MD Consult Narrative Reason for consult: f/u Narrative: Arianne Ko a pleasant 78 year old female presents for evaluation of lumbar radiculopathy post lumbar fusion and right SIJ fusion. Pain today 4/10 constant increasing to 10/10 with all activity. Patient was referred back by her surgeon Dr Saenz for consideration of right L5 TFESI followed by right S1 TFESI if needed. Pt reporting numbness tingling and weakness to right lower extremity. pt finding little benefit to lyrica 75mg TID, flexeril 10mg TID PRN and hydrocod one-acetaminophen 5-325mg QID PRN. Pt underwent right L5 SNRB with no improvement the day of or 8 days following, however as of today she is reporting 70% improvement. Last saturday and saturday pt had bowel incontinence, pt had no urgency or sensation but discovered BM in her underwear upon changing. Pt denies new weakness or any loss of bladder. cc:: CC: Melissa Soni NP Review of Systems ROS Status of ROS 10 or more systems reviewed and unremark able except as noted in history and below Musculoskeletal Reports: back pain and extremity pain PFSH PFSH Medical History DDD (degenerative disc disease) Postoperative pain ?G89.18 - Other acute postprocedural pain (ICD-10) Encounter for long-term opiate analgesic use ?Z79.891 - MCC (current) use of opiate analgesic (ICD-10) Sacroiliac joint pain ?M53.3 - Sacrococcygeal disorders, not elsewhere classified (ICD-10) Sacroiliac joint dysfunction of right side ?M53.3 - Sacrococcygeal disorders, not elsewhere classified (ICD-10) Muscle spasm ?M62.838 - Other muscle spasm (ICD-10) Bilateral sacroiliitis ?M46.1 - Sacroiliitis, not elsewhere classified (ICD-10) Lumbar radiculopathy ?M54.16 - Radiculopathy, lumbar region (ICD-10) Lumbar spondylosis ?M47.816 - Spondylosis without myelopathy or radiculopathy, lumbar region (ICD-10) Chronically on opiate therapy ?Z79.891 - long term acute care registered nurse (current) use of opiate analgesic (ICD-10) Osteoporosis ?M81.0 - Age-related osteoporosis without current pathological fracture (ICD- 10) Primary osteoarthritis, left ankle and foot ?M19.072 - Primary osteoarthritis, left ankle and foot (ICD-10) Bunionette of left foot ?M21.622 - Bunionette of left foot (ICD-10) Hallux valgus (acquired), left foot ?M20.12 - Hallux valgus (acquired), left foot (ICD-10) Back pain ?M54.9 - Dorsalgia, unspecified (ICD-10) Arthritis ?M19.90 - Unspecified osteoarthritis, unspecified site (ICD-10) Vertigo ?R42 - Dizziness and giddiness (ICD-10) Headache ?R51.9 - Headache, unspecified (ICD-10) Migraine ?G43.909 - Migraine, unspecified, not intractable, without status migrainosus (ICD-10) Multiple fractures ?T07.XXXA - Unspecified multiple injuries, initial encounter (ICD-10) Microscopic colitis ?K52.839 - Microscopic colitis, unspecified (ICD-10) Hiatal hernia ?K44.9 - Diaphragmatic hernia without obstruction or gangrene (ICD-10) Syncopal episodes (2019) ?R55 - Syncope and collapse (ICD-10) Osteopenia ?M85.80 - Other specified disorders of bone density and structure, unspecified site (ICD-10) Osteoarthritis ?M19.90 - Unspecified osteoarthritis, unspecified site (ICD-10) Neck pain ?M54.2 - Cervicalgia (ICD-10) Low back pain ?M54.50 - Low back pain, unspecified (ICD-10) Heartburn ?R12 - Heartburn (ICD-10) Acid reflux ?K21.9 - Gastro-esophageal reflux disease without esophagitis (ICD-10) Surgical History History of bunionectomy ?Z98.890 - Other specified postprocedural states (ICD-10) History of esophagogastroduodenoscopy (EGD) ?Z98.890 - Other specified postprocedural states (ICD-10) History of colonoscopy ?Z98.890 - Other specified postprocedural states (ICD-10) History of carpal tunnel release ?Z98.890 - Other specified postprocedural states (ICD-10) S/P cataract extraction and insertion of intraocular lens ?Z98.49 - Cataract extraction status, unspecified eye (ICD-10) ?Z96.1 - Presence of intraocular lens (ICD-10) History of repair of rotator cuff ?Z98.890 - Other specified postprocedural states (ICD-10) H/O radiofrequency ablation (RFA) of nerve of lumbar spine ?Z98.890 - Other specified postprocedural states (ICD-10) H/O shoulder surgery ?Z98.890 - Other specified postprocedural states (ICD-10) History of ear, nose, and throat (ENT) surgery ?Z98.890 - Other specified postprocedural states (ICD-10) H/O carpal tunnel repair ?Z98.890 - Other specified postprocedural states (ICD-10) H/O wrist surgery ?Z98.890 - Other specified postprocedural states (ICD-10) H/O section ?Z98.891 - History of uterine scar from previous surgery (ICD-10) Family History Other Family history of colon cancer Family history of diabetes mellitus Family history of heart disease Family history of ovarian cancer Family history of prostate cancer Family history of throat cancer Family history of uterine cancer Social History Within the past year, how often did you have a drink containing alcohol: monthl y or less Smoking status: Never smoker Non-prescribed substance use: denies use Previous occupational history: retired Known occupational exposures/hazards: No Highest level of school completed/degree received: some college, no degree Meds Home Medications and Allergies Home Medications ?Medication ?Instructions ?Recorded ?Confirmed ?Type denosumab 60 mg/mL subcutaneous 60 mg subcut .[id number] 04/10/23 07/06/24 History syringe (Prolia) geriatric multivitamin-min 1 cap PO DAILY 04/10/23 07/06/24 History magnesium 200 mg tablet 400 mg PO BID 04/10/23 07/06/24 History pantoprazole 40 mg tablet,delayed 40 mg PO DAILY 07/24/23 07/06/24 History release cyclobenzaprine 10 mg tablet 10 mg PO TID 07/01/24 07/06/24 History hydrocodone 5 mg-acetaminophen 325 See Rx Instructions .Route 07/01/24 07/06/24 Rx mg tablet .COMPLEX PRN pain #42 tabs pregabalin 50 mg capsule (Lyrica) 50 mg PO BID 07/01/24 07/06/24 History baclofen 10 mg tablet See Rx Instructions .Route 07/15/24 Rx .COMPLEX #90 tabs hydrocodone 7.5 mg-acetaminophen 1 tab PO TID PRN pain #90 tabs 07/15/24 Rx 325 mg tablet pregabalin 75 mg capsule (Lyrica) 75 mg PO TID #90 caps 07/15/24 Rx Allergies Allergy/AdvReac Type Severity Reaction Status Date / Time No Known Drug Allergies Allergy Verified 07/06/24 10:29 Exam Constitutional Documenting provider has reviewed patient's vital signs: yes Common normals: no apparent distress, oriented x3, healthy appearing, alert and well nourished General appearance: cooperative HENSC Common normals: normocephalic, hearing grossly normal bilaterally and moist oral mucous membranes Head and scalp: normocephalic Eye Common normals: PERRL Pupil: PERRL Neck & C-Spine Common normals: full ROM General: normal visual inspection Chest Common normals: inspection of chest normal Respiratory Common normals: normal respiratory effort, no retractions and no use of accessory muscles Back & Pelvis Lumbar spine/lower back: ROM limited, pain with ROM, lumbar spinal tenderness, paraspinal muscle tenderness, paraspinal muscle spasm Lumbar paraspinal muscle spasm: right and straight leg raise positive right Other: strength 4/5 in BLE sensation altered to right L5/S1 significant myofascial spasming noted to right paralumbar and latissimus dorsi, trigger points noted Extremity Common normals: normal to inspection and full ROM Neuro Common normals: oriented x3, CN's II-XII intact bilaterally, moves all extremities, no focal motor deficits, no sensory deficits noted and deep tendon reflexes 2+ bilaterally Sensorium/orientation: alert Motor exam: no movement abnormalities noted and strength abnormal Psych Common normals: mental status grossly normal, thought process normal, cooperative, affect normal, speech normal and activity/motor behavior normal Speech: normal speech Thought process: normal thought process Assessment and Plan Assessment and Plan (1) Lumbar radiculopathy: (2) Full incontinence of feces: (3) Cauda equina syndrome: (4) Myalgia, other site: Plan pt reports no improvement from right L5 SNRB the day of the procedure or 8 days following, today patient reporting 70% improvement but continues to have moderate to severe pain following S1 pattern with 3 days of bowel incontinence last week I am ordering a STAT MRI of lumbar spine with and without contrast to rule out Cauda equina syndrome. 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
== END 2024-07-15 10:52 | disposition home or self-care (01) ==
PROVIDERS: PCP Family Medicine; Visit Provider Nurse Practitioner
DX: M54.16 Radiculopathy, lumbar region (principal); R15.9 Full incontinence of feces; M47.817 Spondylosis without myelopathy or radiculopathy, lumbosacral region; M48.00 Spinal stenosis, site unspecified; G83.4 Cauda equina syndrome; M79.18 Myalgia, other site
CPT/HCPCS: 72158; G0463

== ENCOUNTER 2024-07-15 12:47 | Outpatient (OUT) | payer MEDICARE, SELFPAY ==
--- NOTE | 2024-07-15 13:04 | MR_ITS ---
The [address] [address] Patient Name: LOBO MURDOCK MRN: [id number] date: 1945 Sex: F Assigned Patient Location: LAB Current Patient Location: LAB Accession/Order Number: [id number] Exam Date: 07/15/2024 13:50 Report Date: 07/15/2024 15:36 At the request of: DANIELA FARLEY Procedure: MR lumbar spine wo/w con EXAM: MRI of the lumbar spine without and with IV contrast utilizing 12 mL of IV Dotarem contrast. REASON FOR EXAM: Bowel Incontinence COMPARISON: MRI dated 11/21/2023 FINDINGS: No lumbar spine fractures, acute malalignment or acute abnormal marrow signal. No spinal canal mass, hematoma or fluid collection. No abnormal enhancing lesions. L4-5 posterior william and pedicle screw fusion with laminectomies. Grade 1 anterolisthesis of L4 on L5. Minimal grade 1 retrolisthesis of L1 on L2. T11 chronic compression fracture with moderate to advanced height loss. Lumbar spine degenerative changes with multilevel disc space narrowing, most advanced at the L4-5 and L5-S1 levels. Posterior disc bulges at the L2-L3, L3-L4, L4-5 and L5-S1 levels. Right sacroiliac joint instrumented fusion. No substantial spinal canal stenoses. Moderate bilateral L4-5 and L5-S1 neural foraminal stenoses. Mild bilateral L2-L3 and L3-L4 neural foraminal stenoses. Moderate-sized esophageal hiatal hernia. Remainder unremarkable. MR/MR lumbar spine wo/w con IMPRESSION: 1. No acute lumbar spine abnormalities. 2. L4-5 posterior william and pedicle screw fusion with laminectomies. 3. Lumbar spine degenerative changes with moderate bilateral L4-5 and L5-S1 neural foraminal stenoses. 4. No substantial spinal canal stenoses. Electronically authenticated by: JONNATHAN BOSS Date: 07/15/2024 15:36
[2024-07-15 13:11] LABS: Estimated GFR (African America >60 (>=60 mL/min/1.73m^2); Estimated GFR (Non-African Ame 51 (>=60 mL/min/1.73m^2)
== END 2024-07-15 12:48 | disposition home or self-care (01) ==
LOC: LAB 12:48
PROVIDERS: PCP Family Medicine; Visit Provider Nurse Practitioner
DX: M54.16 Radiculopathy, lumbar region (principal); R15.9 Full incontinence of feces; M47.817 Spondylosis without myelopathy or radiculopathy, lumbosacral region; M48.00 Spinal stenosis, site unspecified
CPT/HCPCS: 36415; 72158; 82565

== ENCOUNTER 2024-07-27 08:18 | Day surgery (SDC) | payer MEDICARE, SELFPAY ==
[2024-07-27 08:42] VITALS: BP 135/79; PULSE 94; TEMP 36.5; O2SAT 97
[2024-07-27 09:03] VITALS: BP 153/70; PULSE 92; O2SAT 96
[2024-07-27 09:05] VITALS: BP 145/65; PULSE 88; O2SAT 97
--- NOTE | 2024-07-27 09:06 | P.ON_ITS ---
Date of procedure: 07/27/24 Pre-op diagnosis: Pain due to lumbar radiculopathy Post-op diagnosis: same as pre-op Procedure: Procedure: Right S1 selective nerve root block Medications: Bupivacaine 0.25% 2cc, lidocaine 2% 1cc, depomedrol 80mg The patient was seen and examined in the preoperative holding area.? Informed consent was obtained and placed on the chart.? Patient was brought to the medical procedure unit and placed in the prone position where a timeout was completed verifying the correct patient, procedure site, position, and planned special equipment using sterile aseptic technique.? Under direct fluoroscopic visualization a 25-gauge Quincke tipped spinal needle was advanced to the designated neural foramen where contrast dye was injected to show adequate spread.? The needle was inserted at level right S1-2. There was no evidence of vascular or adverse uptake.? Epidural spread was appreciated.? The above- mentioned injectate was then placed in a 1.5 mL aliquot preceded by negative aspiration.? The needle was removed. The surgery site was covered.? Patient was taken to the postprocedural recovery area and monitored for an appropriate length of time before found suitable for discharge in the accompaniment of a responsible adult. Anesthesia: Local Surgeon: Ara Maier Pathology: none sent Condition: stable Disposition: no change
[2024-07-27] MEDS: IOHEXOL 240 MG/ML - 10 ML VIAL 12 MG INJ (09:07)
[2024-07-27] MEDS: BUPIVACAINE HCL 0.25% PF 25 MG/10 ML VIAL INJ (09:07)
[2024-07-27] MEDS: 0.9 % SODIUM CHLORIDE 10 ML SYRINGE - SALINE FLUSH INJ (09:07)
[2024-07-27] MEDS: LIDOCAINE HCL 2% 400 MG/20 ML MDV 3 ML INJ (09:08)
[2024-07-27] MEDS: METHYLPREDNISOLONE ACETATE 80 MG/ML VIAL INJ (09:08)
== END 2024-07-27 09:12 | disposition home or self-care (01) ==
LOC: SURGOUT 08:19
PROVIDERS: PCP Family Medicine; Visit Provider Anesthesiology
DX: M54.16 Radiculopathy, lumbar region (principal)
CPT/HCPCS: 64483; J0665; J1010; Q9966

== ENCOUNTER 2024-07-31 14:08 | Emergency (ER) | payer MEDICARE, SELFPAY ==
[2024-07-31 14:14] VITALS: BP 172/78; PULSE 72; TEMP 36.4; O2SAT 99; BMI 23.8
--- OUTSIDE RECORDS SUMMARY | 2024-07-31 14:28 | XMS_ITS | CCD ---
Author Organization [facility] Care Team Providers Care Dosier Operator Name Role Phone PHYSICIAN, DEFAULT Admitting Unavailable [...] MD Viky Stanford Primary Care Provider MD Sunny Torres Attending Provider MD Viky Stanford Primary Care Provider [phone] MD Sunny Torres Attending Provider Viky Stanford Primary Care Unavailable Asaad, Imad Admitting Unavailable Asaad, Imad Attending Unavailable Viky Stanford Primary Care Unavailable Asaad, Imad Admitting Unavailable Asaad, Imad Attending Unavailable APLING, ROMELIA B Attending Unavailable APLING, ROMELIA B Attending Unavailable APLING, ROMELIA B Attending Unavailable APLING, ROMELIA B Attending Unavailable APLING, ROMELIA B Attending Unavailable APLING, ROMELIA Keith Referring Unavailable APLING, ROMELIA Keith Attending Unavailable Viky Stanford MD Primary Care Provider [phone] HAM, ECHO Mir Admitting Unavailabl e HAM, ECHO Mir Attending Unavailabl e VIKY STANFORD Primary Care Unavailable HAM, ECHO Mir Referring Unavailabl e VIKY STANFORD Primary Care Unavailable HAM, ECHO Mir Attending Unavailabl e HAM, ECHO Mir Referring Unavailabl e VIKY STANFORD Primary Care Unavailable Darrion DIAZ, Ara Loomis Attending Unavailable Darrion DIAZ, Ara Loomis Attending Unavailable Viky Stanford MD Primary Care Provider Allergies Allergy Classification Reported Allergen(s) Allergy Type Date of Onset Reaction(s) Facility (8 sources) Calcitonin ([place]) *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 Propensity to adverse reactions Comment:severe weakness Pianpian Other (3 sources) calcitonin; Translations: [calcitonin] Propensity to adverse reactions 4 Other (See Comments) [facility] (1 source) Fish Oils Drug Allergy 4 Other (See Comments) [facility] Medications Current Medications Medication Drug Class(es) Dates Sig (Normalized) Sig (Original) baclofen 10 mg oral tablet (16 sources) gamma-Aminobutyric Acid-ergic Agonist Start: 10-25-2020 take 10 mg by mouth once daily Baclofen Active 10 MG PO Daily October 02, 2023 1:00am budesonide 3 mg delayed release oral capsule (9 sources) Corticosteroid Start: 03-29-2024 take 3 capsules by mouth once daily, then take 2 capsules by mouth once daily, then take 1 capsule by mouth once daily budesonide EC (Entocort EC) 3 MG 24 hr capsule TAKE 3 CAPSULES BY MOUTH DAILY for EIGHT weeks, then TAKE 2 CAPSULES DAILY FOR 14 DAYS, then TAKE 1 CAPSULE DAILY FOR 14 DAYS 03/29/2024 Active Start: 10-04-2023 End: 03-06-2024 Budesonide 3 MG [...] mg / cholecalciferol 250 unt oral tablet (7 sources) Vitamin D Start: 03-13-2024 calcium citrat e 315 mg + D2 6.25 mcg tablet 1 tablet 03/13/2024 Active Start: 03-13-2024 take 1 tablet by brijesh th once daily Calcium Citrate-Vitamin D3 (Citracal + D Maximum) 315 mg-6.25 mcg (250 unit) tablet Active 1 TAB PO Daily March 13, 2024 12:00am Houzuyg-Naacozvswj-Iahbhbx D (Citracal +D3) 250-107-500 MG-MG-UNIT chewable tablet (6 sources) Calcium-Phosphor us-Vitamin D (Citracal +D3) 250-107-500 MG-MG-UNIT chewable tablet as directed Orally Active cholecalciferol 0.025 mg ora l tablet (7 sources) Vitamin D Start : 03-13 take 25 ug by mouth once daily Cholecalciferol (Vitamin D3) Active 25 MCG PO Daily March 13, 2024 12:00am cholecalciferol (Vitamin D-3) 50 MCG (2000 UT) tablet 1 (one) time each day at the same time. Active Citracal Plus - (8 sources) Start: 10-25-2020 Citracal Plus - as directed Orally once a day for 0 days Oct, Active 1 ml denosumab 60 mg/ml prefilled syringe (15 sources) RANK Ligand Inhibitor Start: 03-13-2024 Denosuma b (Prolia) 60 mg/mL syringe Active 60 MG SUBCUT EVERY 6 MONTHS March 13, 2024 12:00am Start: 08-13-2019 Prolia 60MG/ML Prolia 60MG/ML, # 0, 08/13/2019, No Refill. Active Subcutaneous for 0 *Pick strength-form from [facility] for eRX* Aug, Active diclofenac sodium 50 mg delayed release oral tablet (16 sources) Nonsteroidal Anti-inflammatory Drug Start: 10-02-2023 take [...] per day for 7 days Jun, Active escitalopram 10 mg oral tablet (6 sources) Serotonin Reuptake Inhibitor Start: 03-16-2024 End: 03-20-2024 take 1 tablet by mouth once daily escitalopram (Lexapro) 10 MG tablet Take 10 mg by mouth Daily 03/16/2024 Active Magnesium (14 sources) Start: 10-25-2020 take 1 tablet by mouth once daily Magnesium 400 MG 1 tablet with a meal Orally Once a day for 0 days *Pick strength-form from [employer] [facility] for eRX* Oct, Active Magnesium 400 MG capsule as directed Orally Active magnesium oxide 400 mg oral tablet (1 source) Start: 03-13-2024 take 1 tablet by mouth once daily Magnesium Oxide Active 400 MG PO Daily March 13, 2024 12:00am Free[employer] tablet with a meal Orally Once a day; Note: Source Status: Taking*Pick strength-form from [employer] [facility] [facility] for eRX*; Provider: Abdoulaye Gomez ( ) Multiple Vitamin (8 sources) take 1 tablet by mouth once daily Multiple Vitamin 1 tablet Orally Once a day Active Multiple Vitamin (MULTIVITAMIN ADULT PO) (6 sources) take 1 capsule by mouth in the morning Multiple Vitamin (MULTIVITAMIN ADULT PO) Take 1 capsule by mouth in the morning. Active Yzulqpfe-Saxo-Gw-Ca lcium-Mins (Daily Multiple For Women) 18 mg iron-400 mcg-500 mg Ca tablet (1 source) Start: 03-13-2024 take 1 tablet by mouth once daily Kopnpafu-Vvkk-Ra-Ca lcium-Mins (Daily Multiple For Women) 18 mg iron-400 mcg-500 mg Ca tablet Active 1 TAB PO Daily March 13, 2024 12:00am pantoprazole 40 mg delayed release oral tablet (20 sources) Proton Pump Inhibitor Start: 07-15-2023 End: 10-04-2023 pantoprazole (ProtoNix) 40 MG EC tablet Daily 10/04/2023 Active take 40 mg by mouth once daily [...] Active traMADol hydrochloride 50 mg oral tablet (15 sources) Opioid Agonist Start: 03-06-2024 take 50 [...] Drug Class(es) Dates Sig (Normalized) Sig (Original) hyoscyamine sulfate 0.125 mg oral tablet (9 [...] y qid prn for 10 days Active 1 ml methylPREDNISolone acetate 40 mg/ml injection (4 sources) Corticosteroid Start: 04-15-2024 End: 04-15-2024 methylPREDNISolone acetate (DEPO-Medrol) injection 40 mg Start: 04-15-2024 End: 04-15-2024 40 mg, Intra-articular, Once PRN Procedure, Starting on Sat04/15/24 at 1143, For 1 dose Sod Picosulf-Mag Ox-Citric Ac (2 sources) Start: [...] D deficiency, unspecified] Onset: 01-19-2015 Chronic Osteoarthritis (12 sources) Osteoarthritis; Translations: [Unspecified osteoarthritis, unspecified site] Onset: 10-28-2013 04-27-2024 Chronic Osteoporosis (20 sources) Age-related osteoporosis without current pathological fracture; Translations: [Primary osteoporosis] Onset: 10-28-2013 Chronic Other aftercare (8 sources) 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; Translations: [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 No osseous fusion at this time. [facility] EXAMINATION: CT OF THE PELVIS WITHOUT [...] None. HISTORY ORDERING SYSTEM PROVIDED HISTORY: Sacroiliitis ([facility]) TECHNOLOGIST PROVIDED HISTORY: BACK PAIN Is a [...] related to the previous surgery. Joint: Osteoarthritis [facility] Quyen Ruffin MD - 06/28/2024 EXAMINATION: CT OF THE [...] None. HISTORY ORDERING SYSTEM PROVIDED HISTORY: Sacroiliitis ([facility]) TECHNOLOGIST PROVIDED HISTORY: BACK PAIN Is a [...] joint. No osseous fusion at this time. [facility] contrastOrdered By: Quyen Ruffin on 06-28-[address] [facility] Work Phone: CT Pelvis WO contraston 06-12 Radiology Study observation (narrative) [facility] FLUORO FOR SURGICAL PROCEDUR ESon 06-09-2024 FLUORO FOR SURGICAL PROCEDURES Radiology exam is complete. No Radiologist dictation. Please follow up with ordering provider. Final result Normal [facility] EKG 12 LeadOrdered By: Carter Machuca on 06-03-2024 Atrial Rate 87 BPM Fransisco Jenkins [employer] Work Phone: P [place] 32 degrees Fransisco Jenkins [employer] Work Phone: P-R Interval 136 ms Fransisco Secsamantha [employer] Work Phone: Q-T Interval 350 ms Fransisco Secsamantha [employer] Work Phone: QRS Duration 74 ms Fransisco Jenkins [employer] [employer] Work Phone: QTc Calculation (Bazett) 421 ms Fransisco Jenkins [employer] Work Phone: R [place] 12 degrees Fransisco Jenkins [employer] Work Phone: T [place] 45 degrees Fransisco Jenkins [employer] Work Phone: Ventricular Rate 87 BPM Fransisco rodriguez [employer] Work Phone: Fransisco Jenkins [employer] Work Phone: EKG 12 Leadon 06-03-2024 Normal sinus rhythm Normal ECG No previous ECGs available [facility] Carter Urrutia, DO - 06/03/2024 Normal sinus rhythm Normal ECG No previous ECGs available [facility] gamigo CBC with Auto Differentialon 06-02-2024 Basophils (Bld) [#/Vol] 0.06 10*3/uL [facility] Basophils/100 WBC (Bld) 1 % 0 - 2 % [facility] Eosinophils (Bld) [#/Vol] 0.09 10*3/uL [facility] Eosinophils/100 WBC (Bld) 1 % 1 - 4 % [facility] Erythrocyte distribution width (RBC) [Ratio] 12.5 % 11.8 - 14.4 % [facility] [employer] Hematocrit (Bld) [Volume fraction] 41.5 % 36.3 - 47.1 % [facility] Hemoglobin (Bld) [Mass/Vol] 13.2 g/dL 11.9 - 15.1 g/dL [facility] [place] [facility] Immature granulocytes (Bld) [#/Vol] 0.05 10*3/uL [facility] Immature granulocytes/100 WBC (Bld) 1 % High 0 [facility] Interpretation and review of laboratory results Abnormal [facility] Lymphocytes/100 WBC (Bld) 20 % Low 24 - 43 % [facility] Lymphocytes/100 WBC (Bld) 1.62 % [facility] MCH (RBC) [Entitic mass] 31.1 pg 25.2 - 33.5 pg [facility] MCHC (RBC) [Mass/Vol] 31.8 g/dL 28.4 - 34.8 g/dL [facility] MCV (RBC) [Entitic vol] 97.6 fL 82.6 - 102.9 fL [facility] Monocytes/100 WBC (Bld) 10 % 3 - 12 % [facility] Monocytes/100 WBC (Bld) 0.80 % [facility] Neutrophils/100 WBC (Bld) 67 % High 36 - 65 % [facility] Nucleated RBC/100 WBC (Bld) [Ratio] 0.0 % 0.0 per 100 WBC [facility] Platelet mean volume (Bld) [Entitic vol] 10.0 fL 8.1 - 13.5 fL [facility] Platelets (Bld) [#/Vol] 247 10*3/uL [facility] RBC (Bld) [#/Vol] 4.25 10*6/uL 3.95 - 5.1 1 m/uL [facility] Segmented neutrophils/100 WBC (Bld) 5.57 % [facility] WBC other (Bld) [#/Vol] 8.2 [facility] CBC with Diffon 06-02-2024 Abs. Basophil 0.06 k/uL Normal 0.00-0.[address] [facility] Comment on above: Performed By: #### C DP #### [employer] [place] [address] Manager Work: Arpit Cruz MD Abs.Imm.Granulocyte 0.05 k/uL Normal 0.00-0.[address] [facility] Comment on above: Performed By: #### C DP #### [address] [address] Manager Work: Arpit Cruz MD Abs.Neutrophil (Seg) 5.57 k/uL Normal 1.50-8.[address] [facility] Comment on above: Performed By: #### C DP #### [address] [address] Manager Work: Arpit Cruz MD Basophils/100 WBC (Bld) 1 % Normal 0-[address] [facility] Comment on above: Performed By: #### C DP #### [address] [address] Manager Work: Arpit Cruz MD Eosinophils (Bld) [#/Vol] 0.09 10*3/uL Normal 0.00-0.[address] [facility] Comment on above: Performed By: #### C DP #### [address] [address] Manager Work: Arpit Cruz MD Eosinophils/100 WBC (Bld) 1 % Normal 1-[address] [facility] Comment on above: Performed By: #### C DP #### [address] [address] Manager Work: Arpit Cruz MD Erythrocyte distribution width (RBC) [Ratio] 12.5 % Normal 11.8-14.[address] [facility] Comment on above: Performed By: #### C DP #### [address] [address] Manager Work: Arpit Cruz MD Hematocrit (Bld) [Volume fraction] 41.5 % Normal 36.3-47.[address] [facility] Comment on above: Performed By: #### C DP #### [address] [address] Manager Work: Arpit Cruz MD Hemoglobin (Bld) [Mass/Vol] 13.2 g/dL Normal 11.9-15.[address] [facility] Comment on above: Performed By: #### C DP #### [address] [address] Manager Work: Arpit Cruz MD Immature granulocytes/100 WBC (Bld) 1 % High [address] [facility] Comment on above: Performed By: #### C DP #### [address] [address] Manager Work: Arpit Cruz MD Lymphocytes (Bld) [#/Vol] 1.62 10*3/uL Normal 1.10-3.[address] [facility] Comment on above: Performed By: #### C DP #### [address] [address] Manager Work: Arpit Cruz MD Lymphocytes/100 WBC (Bld) 20 % Low 24-[address] [facility] Comment on above: Performed By: #### C DP #### [address] [address] Manager Work: Arpit Cruz MD MCH (RBC) [Entitic mass] 31.1 pg Normal 25.2-33.[address] [facility] Comment on above: Performed By: #### C DP #### [address] [address] Manager Work: Arpit Cruz MD MCHC (RBC) [Mass/Vol] 31.8 g/dL Normal 28.4-34.[address] [facility] Comment on above: Performed By: #### C DP #### [address] [address] Manager Work: Arpit Cruz MD MCV (RBC) [Entitic vol] 97.6 fL Normal 82.6-102.[address] [facility] Comment on above: Performed By: #### C DP #### [address] [address] Manager Work: Arpit Cruz MD Monocytes (Bld) [#/Vol] 0.80 10*3/uL Normal 0.10-1.[address] [facility] Comment on above: Performed By: #### C DP #### [address] [address] Manager Work: Arpit Cruz MD Monocytes/100 WBC (Bld) 10 % Normal 3-[address] [facility] Comment on above: Performed By: #### C DP #### [address] [address] Manager Work: Arpit Cruz MD Neutrophil (Seg) 67 % High 36-65 [facility] Comment on above: Performed By: #### C DP #### [address] [address] Manager Work: Arpit Cruz MD NRBC Automated 0.0 per 100 WBC Normal 0.[address] [facility] Comment on above: Performed By: #### C DP #### [address] [address] Manager Work: Arpit Cruz MD Platelet mean volume (Bld) [Entitic vol] 10.0 fL Normal 8.1-13.[address] [facility] Comment on above: Performed By: #### C DP #### [address] [address] Manager Work: Arpit Cruz MD Platelets (Bld) [#/Vol] 247 10*3/uL Normal 138-[address] [facility] Comment on above: Performed By: #### C DP #### [address] [address] Manager Work: Arpit Cruz MD RBC (Bld) [#/Vol] 4.25 10*6/uL Normal 3.95-5.[address] [facility] Comment on above: Performed By: #### C DP #### [facility] [address] [place], [place] [id number] Manager Work: Arpit Cruz MD WBC (Bld) [#/Vol] 8.2 10*3/uL Normal 3.5-11.[address] [facility] Comment on above: Performed By: #### C DP #### [facility] [address] [place] [address] Manager Work: Arpit Cruz MD XR Knee - left 3 [facility] Result: April 15, 2024 x-rays AP weight-bearing bilateral knees lateral and sunrise of the left knee demonstrate medial compartment narrowing bilateral knees left slightly more advanced than the right. Subchondral sclerosis is noted. Subchondral sclerosis is noted in the patellofemoral joint. No fractures detected. Impression: Osteoarthritis bilateral knees Echo Velazquez D.O. [employer] XR Knee - left 3 ViewsOrdere d By: Cullen Velazquez on 04-16-2024 Official[employer]DJ e Work Phone: No Panel Informationon 04-15 Romelia Mcclain NP 04/17/2024 6:43 AM L Inj/Asp: L knee on 04/15/2024 11:43 AM Indications: pain Details: 20 G needle, anterolateral approach Medications: 40 mg methylPREDNISolone acetate 40 MG/ML Procedure, treatment alternatives, risks and benefits explained, specific risks discussed. Consent was given by the patient. [employer] e XR Knee - left 3 [facility] Rad[facility] Study observation (narrative) [facility] Pathology Request for Lab Co rpon 03-20-2024 Pathology Request for Lab Dorothy Normal [facility] Comment on above: Order Comment: PATHO LOGY GI SPECIMEN Result Comment: See report. Scanned copy available in EMR. PERFORMED BY: [facility] [place] [address] PATHOLOGIST DIRECTOR OF CATEGORY MANAGEMENT HELENE LEON M.D. Performed By: #### P ATH TO [facility] #### [facility] [address] [place] [address] [facility] Guevara 10-02-2023 L Specimen: [id number] Received: 10/02/23 Status: OJ Brice Num: [id number] Spec Type: Surgical Subm Dr: Sunny Torres MD Tissues: A GASTRIC FOR HP (GASTRIC BX R/O H.PYLORI) B Colon Biopsy (RANDOM COLON BX R/O MICROSCO) Procedures: HE/4, Gross/Micro L4/2, H PYLORI Age/ Patient Sex Location Account Attending Physician Danae Murdocke 78/F [id number] Sunny Torres MD SPEC NUM: [id number] RECD: 10/02/23 STATUS: OJ BRICE NUM: [id number] TEO: 10/02/[address]: Sunny Torres MD ENTERED: 10/02/[address] [facility] DR: SPEC TYPE: Surgical DEPT: S ORDERED: [...] date of and random colon ---- Specimen: [id number] Received: 10/02/23 Status: OJ Brice Num: [id number] Spec Type: Surgical Subm Dr: Sunny Torres MD Tissues: A GASTRIC FOR HP (GASTRIC BX R/O H.PYLORI) B Colon Biopsy (RANDOM COLON BX R/O MICROSCO) Procedures: HE/4, Gross/Micro L4/2, H PYLORI ---- Patient: Arianne Murdock [id number] (Continued) ---- Specimen: [id number] Received: 10/02/23 (Continued) Gross Description (Continued) Signed (signature on file) Patito Grimm MD 10/03/23 1430 ---- Specimen: [id number] Received: 10/02/23 Status: OJ Brice Num: [id number] Spec Type: Surgical Subm Dr: Sunny Torres MD Tissues: A GASTRIC FOR HP (GASTRIC BX R/O H.PYLORI) B Colon Biopsy (RANDOM COLON BX R/O MICROSCO) Procedures: HE/4, Gross/Micro L4/2, H PYLORI ---- Patient: Arianne Murdock [id number] (Continued) ---- Specimen: [id number] Received: 10/02/23 (Continued) Gross Description (Continued) biopsy are 2 galvan translucent soft tissue fragments, 0.3 and 0.6 cm in greatest dimensions. Entirely submitted in one cassette labeled B1. CPT Codes [id number] ---- ---- Specimen: [id number] Received: 10/02/23 Status: OJ Brice Num: [id number] Spec Type: Surgical Subm Dr: Sunny Torres MD Tissues: A GASTRIC FOR HP (GASTRIC BX R/O H.PYLORI) B Colon Biopsy (RANDOM COLON BX R/O MICROSCO) Procedures: HE/4, Gross/Micro L4/2, H PYLORI ---- Patient: Arianne Murdock [id number] (Continued) ---- Signed (signature on file) Patito Grimm MD 10/03/23 1430 Normal [facility] CALCIUMon 10-03-2022 Calcium [Mass/Vol] 8.9 mg/dL Normal 8.5-10.1 [facility] Comment on above: Performed By: #### VALERIO MADRIGAL #### [facility] [address] [place] [address] Dr. Dang Grimm CREATININEon 10-03-2022 Creatinine [Mass/Vol] 1.03 mg/dL Critically high 0.55-1.02 [facility] Comment on above: Performed By: #### VALERIO MADRIGAL #### [facility] [address] [place] [address] Dr. Dang Grimm EGFR-AF TUVALUAN >60 Normal >=60 [facility] Comment on above: Performed By: #### C VALERIO ADAMS #### [facility] [address] [place], [place] [address] Dr. Dang Grimm EGFR-NON AF TUVALUAN 52 mL/min/1.73m2 Critically low >=60 [facility] Comment on above: Performed By: #### C VALERIO ADAMS #### [facility] [address] [place], [place] [address] Dr. Dang Grimm Covid-19 PCR ([facility])on SARS-CoV-2 (COVID-19) RNA GENARO+probe Ql (Unsp spec) Not detected Normal NOT DETECTED [facility] Comment on above: Result Comment: This test is not yet approved or cleared by the [place] FDA. When there are no FDA-approved or cleared tests available, and other criteria are met, FDA can make tests available under an emergency access mechanism called an Emergency Use Authorization (EUA). The EUA for this test is supported by the Sound Engineer Audio Control of Health and Human Service's (HHS's) declaration [...] SARS-CoV-2. Performed By: #### C VDTBH #### [facility] [address] [place], [place] [address] Dr. Dang Grimm ANAon 04-20-2022 OCTAVIA PATTERN SPECKLED Normal [facility] Comment on above: Result Comment: The MELCHOR [...] [facility] [address] OCTAVIA SCREEN 1:40 Normal <1:40,1:[address] [facility] Comment on above: Result Comment: Test performed using MELCHOR IFA OCTAVIA Hep-2 Test, a pre-standardized assay designed for the qualitative and semi-quantitative detection of antinuclear antibodies. Performed By: #### 1 0196 #### [facility] [address] C REACTIVE PROTEINon 022 CRP [Mass/Vol] 2.5 mg/L Normal 0.0-7.0 [facility] Comment on above: Performed By: #### 6 1405, [address] #### [facility] [address] [facility] [address] CBC COMPLETE BLOOD COUNTon 0 04-20-2022 Erythrocyte distribution width (RBC) [Ratio] 12.4 % Normal 11.5-15.0 [facility] Comment on above: Performed By: #### 5 6506, 757[address] #### [facility] [address] Hematocrit (Bld) [Volume fraction] 41.6 % Normal 36.0-45.[address] [facility] Comment on above: Performed By: #### 5 6506, 23777 #### [facility] [address] [facility]. [address] Hemoglobin (Bld) [Mass/Vol] 13.7 g/dL Normal 12.0-15.0 [facility] Comment on above: Performed By: #### 5 6506, 72589 #### [facility] [address] [facility] [place] [address], [facility] MCH (RBC) [Entitic mass] 31.4 pg Normal 27.0-33.[address] [facility] Comment on above: Performed By: #### 5 6506, 25306 #### [facility] [address] [place] [address], [facility] MCHC (RBC) [Mass/Vol] 32.9 g/dL Normal 32.0-35.[address] [facility] Comment on above: Performed By: #### 5 650, 9[address] #### [facility] [address] [place] [address], [facility] MCV (RBC) [Entitic vol] 95.2 fL Normal 82.0-98.[address] [facility] Comment on above: Performed By: #### 5 6505, 71774 #### [facility] [address] [facility] Nucleated RBC/100 WBC (Bld) [Ratio] 0 % Normal 0-[address] [facility] Comment on above: Performed By: #### 5 6505, 11318 #### [facility] [address] [facility] [place] [address], [facility] PLAT CNT 248 10*3/uL Normal 150-400 [facility] Comment on above: Performed By: #### 5 6505, 77863 #### [facility] [address] [facility] [place] [address], [facility] RBC (Bld) [#/Vol] 4.37 10*6/uL Normal 3.80-5.00 [facility] Comment on above: Performed By: #### 5 6506, 02564 #### [facility] [address] [facility] [place] [address], [facility] [facility] WBC (Bld) [#/Vol] 5.54 10*3/uL Normal 4.00-10.60 The [facility] [place] Comment on above: Performed By: #### 5 650, 73625 #### [address] [place], [place] [address] CERVICAL SPINE 4 OR 5 VIEWSo n 04-20-2022 CERVICAL SPINE [address] [facility] Department of Radiology [address] [place], [place] [address], [place] [address] ======== Patient Name: ARIANNE MURDOCK : 1945 Sex: F Age: Race: White Pt. Location: [facility] Patient Status: O Ordered Date: 04/20/2022 10:50:00 AM Completed Date: 04/20/2022 11:42 AM Requesting Provider: MICHAEL HAHN Attending Provider: ARIADNA NOLAN Report Copy To: Signs & Symptoms: M54.2 Cervicalgia I10 History: [place] Comments: Views (X-RAY, CERVICAL SPINE): AP, Lateral, [...] C3 Electronically signed: Christian Upton. Transcribed by: [email or web address], User Resident: Electronically Signed by: CHRISTIAN UPTON @ 04/20/2022 02:33 PM Normal [facility] Comment on above: Order Comment: Views (X-RAY, CERVICAL SPINE): AP, Lateral, Odontoid, Flexion, Extension COMP METABOLIC PANELon 04-20 Albumin [Mass/Vol] 4.1 g/dL Normal 3.5-5.7 [facility] Comment on above: Performed By: #### 3 5515, 21327, 66694 #### [facility] [address] [place] [address], [place] ALKALINE PHOSPH 63 IU/L Normal 34-104 [facility] Comment on above: Performed By: #### 3 5515, 76434, 45529 #### [facility] [address] [place] [address], [place] ALT [Catalytic activity/Vol] 15 U/L Normal 7-[address] [facility] Comment on above: Performed By: #### 3 5515, 27071, 86561 #### [facility] [address] [place] [address], [place] AST [Catalytic activity/Vol] 22 U/L Normal 13-[address] [facility] Comment on above: Performed By: #### 3 5515, 71044, 28419 #### [facility] [address] [place] [address], [place] Bilirubin [Mass/Vol] 0.5 mg/dL Normal 0.3-1.[address] [facility] Comment on above: Performed By: #### 3 5515, 58956, 69650 #### [facility] [address] [place] [address], [place] Calcium [Mass/Vol] 10.2 mg/dL Normal 8.6-10.3 [facility] Comment on above: Performed By: #### 3 5515, 76339, 15904 #### [facility] [address] [place] [address], [place] Chloride [Moles/Vol] 105 mmol/L Normal 98-[address] [facility] Comment on above: Performed By: #### 3 5515, 48611, 47521 #### [facility] [address] [place] [address], [place] CO2 [Moles/Vol] 25 mmol/L Normal 21-31 [facility] Comment on above: Performed By: #### 3 5515, 38962, 61755 #### [facility] [address] [place] [address], [place] Creatinine [Mass/Vol] 0.95 mg/dL Normal 0.60-1.[address] [facility] Comment on above: Performed By: #### 3 5515, 36141, 93019 #### [facility] [address] [place] [address], [place] GFR/1.73 sq M.predicted among non-blacks MDRD (S/P/Bld) [Vol rate/Area] mL/min/{1.73_m2} Normal >[address] [facility] Comment on above: Result Comment: The [facility]'s estimated glomerular filtration rate (eGFR) will [...] of individuals. Performed By: #### 3 5515, 49537, 39016 #### [facility] [address] [place] [address], [place] Glucose [Mass/Vol] 88 mg/dL Normal 70-100 The [facility] Comment on above: Performed By: #### 3 5515, 02156, 49998 #### [facility] [address] [place] [id number], [facility] Potassium [Moles/Vol] 4.5 mmol/L Normal 3.5-5.[address] [facility] Comment on above: Performed By: #### 3 5515, 09719, 38084 #### [facility] [address] [place] [id number], [facility] Protein [Mass/Vol] 6.8 g/dL Normal 6.0-8.3 The [facility] Comment on above: Performed By: #### 3 5515, 08164, 89366 #### [facility] [address] [place] [id number], [facility] Sodium [Moles/Vol] 138 mmol/L Normal 136-145 The [facility] Comment on above: Performed By: #### 3 5515, 17846, 92607 #### [facility] [address] [place] [address], [facility] Urea nitrogen [Mass/Vol] 29 mg/dL High 7-[address] [facility] Comment on above: Performed By: #### 3 5515, 48260, 74149 #### [facility] [address] [facility] [address] [place]CLIC [place]IN[place] PEPTIDE [place] [id number] 04-20-2022 CYCLIC CIT PEP 2 Units Normal 0-19 The [facility] Comment on above: Result Comment: INTE RPRETIVE [...] be monitored and testing repeated. Performed By: [employer] [address] [place] [id number] Vacuum Applicator Operator: Brett Tamez MD, PhD FERRITINon 04-20-2022 Ferritin [Mass/Vol] 43 ng/mL Normal 11-307 The [facility] Comment on above: Performed By: #### 3 5515, 40290, 44124 #### [address] HAND LEFT 3 VWSon 04-20-2022 HAND LEFT [address] [facility] Department of Radiology [address] [place] [id number] ======== Patient Name: ARIANNE MURDOCK : 1945 Sex: F Age: Race: White Pt. Location: [facility] Patient Status: O Ordered Date: 04/20/2022 10:50:00 AM Completed Date: 04/20/2022 11:42 AM Requesting Provider: MICHAEL HAHN Attending Provider: ARIADNA NOLAN Report Copy To: Signs & Symptoms: M79.641 Pain in right hand I10 History: [place] Comments: Evaluate Exam: HAND LEFT 3 VWS ======== HAND LEFT 3 S 04/20/2022 11:42 AM [...] report. Electronically signed: Chelita Lazcano. Transcribed by: [email or web address], User Resident: NIRMALA MONGE Electronically Signed by: CHELITA LAZCANO @ 04/20/2022 01:29 PM I personally read this/these film(s) with this resident Normal The [facility] Comment on above: Order Comment: Evalu ate HAND RIGHT 3 [facility] 2 HAND RIGHT 3 [facility] Department of Radiology [address] [place] [id number] ======== Patient Name: ARIANNE MURDOCK : 1945 Sex: F Age: Race: White Pt. Location: [facility] Patient Status: O Ordered Date: 04/20/2022 10:50:00 AM Completed Date: 04/20/2022 11:42 AM Requesting Provider: MICHAEL HAHN Attending Provider: ARIADNA NOLAN Report Copy To: Signs & Symptoms: M79.641 Pain in right hand I10 History: [place] Comments: Evaluate Exam: HAND RIGHT 3 VWS ======== HAND RIGHT 3 VWS 04/20/2022 11:42 [...] report. Electronically signed: Chelita Lazcano. Transcribed by: [email or web address], User Resident: NIRMALA MONGE Electronically Signed by: CHELITA LAZCANO @ 04/20/2022 01:43 PM I personally read this/these film(s) with this resident Normal [facility] Comment on above: Order Comment: Evalu ate RHEUMATOID FACTOR SERUMon RA <20 Normal 0-[address] [facility] Comment on above: Performed By: #### 6 1405, 27505 #### [facility] [address] SEDIMENTATION RATEon 022 SED RATE 38 mm/hr High 0-[address] [facility] Comment on above: Performed By: #### 5 6506, 15948 ####[facility] [place] [address], [facility] TIBC- INCLUDES IRONon 2021 FE SATURATION 30 % Normal 20-50 [facility] Comment on above: Performed By: #### 3 5515, 01091, 07839 #### [facility] [address] [place] [address], [facility] Iron [Mass/Vol] 115 ug/dL Normal 50-212 [facility] Comment on above: Performed By: #### 3 5515, 41642, 21123 #### [facility] [address] [place] [address], [facility] TIBC 378 mcg/dL Normal 250-[address] [facility] Comment on above: Performed By: #### 3 5515, 75626, 67649 #### [facility] [address] [place] [address], [facility] UIBC 263 mcg/dL Normal 155-355 [facility] Comment on above: Performed By: #### 3 5515, 02925, 20771 #### [facility] [address] [place] [address], [facility] CALCIUMon 04-09-2022 Calcium [Mass/Vol] 9.6 mg/dL Normal 8.5-10.1 [facility] Comment on above: Performed By: #### Bhumika ADAMS [place] #### [facility] [address] [place] [address] [address] Dang Grimm CREATININEon 04-09-2022 Creatinine [Mass/Vol] 1.07 mg/dL Critically high 0.55-1.02 [facility] Comment on above: Performed By: #### Bhumika ADAMS [place] #### [facility] [address] [place] [address] [address] Dang Grimm EGFR-AF TUVALUAN >60 Normal >=60 [facility] Comment on above: Performed By: #### VALERIO MADRIGAL #### [facility] [address] [place], [place] [address] Dr. Dang Grimm EGFR-NON AF TUVALUAN 50 mL/min/1.73m2 Critically low >=60 The [facility] Comment on above: Performed By: #### VALERIO MADRIGAL #### [facility] [address] [place], [place] [address] Dr. Dang Grimm Vital Signs Date Time Vital Sign Value Performing Clinician Facility 06-02-2024 14:33-0400 Body height 154.9 cm Stvz Schedule [facility] 06-02-2024 14:33-0400 Body mass index (BMI) [Ratio] 24 kg/m2 Stvz Schedule [facility] 06-02-2024 14:33-0400 Body weight 57.61 kg Stvz Schedule [facility] 06-02-2024 14:33-0400 Diastolic blood pressure 63 mm[Hg] Stvz Schedule [facility] 06-02-2024 14:33-0400 Heart rate 96 /min Stvz Schedule [facility] 06-02-2024 14:33-0400 Respiratory rate 16 /min [facility] 06-02-2024 14:33-0400 SaO2% (BldA) [Mass fraction] 97 % Stvz Schedule [facility] 06-02-2024 14:33-0400 Systolic blood pressure 132 mm[Hg] Stvz Schedule [facility] 03-20-2024 09:15-0400 Diastolic blood pressure 62 mm[Hg] MD Viky Stanford Work Phone: [facility] 03-20-2024 09:15-0400 Heart rate 72 /min MD Viky Stanford Work Phone: [facility] 03-20-2024 09:15-0400 Respiratory rate 20 /min MD Viky Stanford Work Phone: [facility] 03-20-2024 09:15-0400 SaO2% (BldA) [Mass fraction] 99 % MD Viky Stanford Work Phone: [facility] 03-20-2024 09:15-0400 Systolic blood pressure 115 mm[Hg] MD Viky Stanford Work Phone: [facility] 03-20-2024 07:18-0400 Body height 156.84 cm MD Viky Stanford Work Phone: [facility] 03-20-2024 07:18-0400 Body weight 55.33 kg MD Viky Stanford Work Phone: [facility] 03-16-2024 09:04-0400 Body height 156.84 cm MD Viky Stanford Work Phone: [facility] 03-16-2024 09:04-0400 Body mass index (BMI) [Ratio] 22.8 kg/m2 MD Viky Stanford Work Phone: [facility] 03-16-2024 09:04-0400 Body weight 56.24 kg MD Viky Stanford Work Phone: [facility] 03-16-2024 09:04-0400 Diastolic blood pressure 72 mm[Hg] MD Viky Stanford Work Phone: [facility] 03-16-2024 09:04-0400 Heart rate 81 /min MD Viky Stanford Work Phone: [facility] 03-16-2024 09:04-0400 Systolic blood pressure 122 mm[Hg] MD Viky Stanford Work Phone: [facility] 10-02-2023 09:55-0500 Diastolic blood pressure 67 mm[Hg] MD Viky Stanford Work Phone: [facility] 10-02-2023 09:55-0500 Heart rate 80 /min MD Viky Stanford Work Phone: [facility] 10-02-2023 09:55-0500 Respiratory rate 16 /min MD Viky Stanford Work Phone: [facility] 10-02-2023 09:55-0500 SaO2% (BldA) [Mass fraction] 99 % MD Viky Stanford Work Phone: [facility] 10-02-2023 09:55-0500 Systolic blood pressure 108 mm[Hg] MD Viky Stanford Work Phone: [facility] 10-02-2023 07:07-0500 Body height 160.02 cm MD Viky Stanford Work Phone: [facility] 10-02-2023 07:07-0500 Body weight 56.69 kg MD Viky Stanford Work Phone: [facility] 08-30-2023 10:30-0500 Body height 157.48 cm Viky Stanford Other [facility] 08-30-2023 10:30-0500 Body mass index (BMI) [Ratio] 21.73 kg/m2 Viky Stanford Other [facility] [employer] Other 08-30-2023 10:30-0500 Body weight 53.89 kg Viky Stanford Other [facility] Other 08-30-2023 10:30-0500 Body weight 53.88 kg MD Viky Stanford Work Phone: [facility] 08-30-2023 10:30-0500 Diastolic blood pressure 74 mm[Hg] Viky Stanford Other [facility] 08-30-2023 10:30-0500 Systolic blood pressure 122 mm[Hg] Viky Stanford Other [facility] 08-21-2023 13:45-0500 Body height 157.48 cm Imad Asaad Other [facility] 08-21-2023 13:45-0500 Body mass index (BMI) [Ratio] 21.58 kg/m2 Imad Asaad Other [facility] [employer] Other 08-21-2023 13:45-0500 Body weight 53.52 kg Sunny Torres Other [facility] 07-15-2023 11:30-0500 Body height 157.48 cm Viky Stanford Other [facility] 07-15-2023 11:30-0500 Body mass index (BMI) [Ratio] 21.73 kg/m2 Viky Stanford Other [facility] [employer] Other 07-15-2023 11:30-0500 Body weight 53.89 kg Viky Stanford Other [facility] Other 07-15-2023 11:30-0500 Body weight 53.88 kg MD Viky Stanford Work Phone: [facility] 07-15-2023 11:30-0500 Diastolic blood pressure 78 mm[Hg] Viky Stanford Other [facility] 07-15-2023 11:30-0500 Systolic blood pressure 148 mm[Hg] Viky Stanford Other [facility] 07-06-2023 09:20-0500 Body height 157.48 cm MD Viky Stanford Work Phone: [facility] 07-06-2023 09:20-0500 Body weight 55.51 kg MD Viky Stanford Work Phone: [facility] Encounters Encounter Date Encounter Type Care Provider Facility Start: 07-06-2024 End: 07-06-2024 ambulatory Ara Maier MD Facility:[facility] Start: 06-26-2024 End: 06-28-2024 ambulatory ECHO RAMEYENSHIP [facility] Start: 06-26-2024 End: 06-28-2024 Subsequent hospital visit by physician Echo Ham DO Work Phone: [facility] CT Scan Comment on above: Sacroiliitis (HCC) Start: 06-09-2024 End: 06-09-2024 ambulatory ECHO Mir [facility] Start: 06-02-2024 End: 06-06-2024 ambulatory ECHO Mir [facility] Start: 06-02-2024 Encounter for other preprocedural examination ECHO [facility] Start: 06-02-2024 End: 06-06-2024 Patient encounter status Stvz Schedule [facility] Start: 06-02-2024 End: 06-06-2024 Subsequent hospital visit by physician Hoa Dias Pat Schedule HOA Dias Pre-Admit Testing Comment on above: Pre-op testing (Prim edil Dx) Start: 04-29-2024 End: 04-29-2024 [employer] Romelia Mcclain [employer]MINISTRATOR Work Phone: [facility] Start: 04-29-2024 End: 04-29-2024 [employer] Romelia Keith Apling [employer] ADMINISTRATOR Work Phone: [facility] Start: 04-29-2024 End: 04-29-2024 Office outpatient visit 10 minutes Romelia Mcclain [employer] ADMINISTRATOR Work Phone: [facility] Comment on above: Left knee pain, unsp ecified chronicity (Primary Dx); Arthritis of left knee Start: 04-29-2024 End: 04-29-2024 ambulatory ROMELIA JANEING Not Available Start: 04-15-2024 End: 04-15-2024 [employer] Romelia Keith Apling [employer] ADMINISTRATOR Work Phone: [facility] Start: 04-15-2024 End: 04-15-2024 [employer] Romelia Keith Apling [employer] EXCH[employer] ADMINISTRATOR Work Phone: [facility] Start: 04-15-2024 End: 04-15-2024 Office outpatient visit 25 minutes Romelia Mcclain [employer] ADMINISTRATOR Work Phone: [facility] Comment on above: Left knee pain, unsp ecified chronicity (Primary Dx); Arthritis of left knee Start: 04-15-2024 End: 04-15-2024 ambulatory ROMELIA B APLING Not Available Start: 03-20-2024 Non-patient / Non-visit MD Viky Stanford Work Phone: [facility] Work Phone: Start: 03-20-2024 End: 03-20-2024 Admission to same day surgery center MD Viky Stanford Work Phone: [facility] Work Phone: Start: 03-20-2024 End: 03-20-2024 ambulatory MD Viky Stanford Work Phone: [facility] Work Phone: Start: 03-18-2024 End: 03-18-2024 ambulatory ROMELIA B APLING Not Available Start: 03-17-2024 Preoperative state MD Viky bliss Work Phone: [facility] Start: 03-16-2024 End: 03-16-2024 ambulatory ROMELIA B APLING Not Available Start: 03-16-2024 End: 03-16-2024 Patient encounter procedure MD Viky Stanford Work Phone: [facility] Work Phone: Start: 10-14-2023 End: 10-14-2023 ambulatory Ara Maier MD Facility:[facility] Start: 10-04-2023 End: 10-04-2023 ambulatory Imad Asaad Other [facility] [employer] Other Start: 10-04-2023 Telephone encounter Imad Asaad [facility] Start: 10-02-2023 Non-patient / Non-visit MD Viky Stanford Work Phone: [facility] Work Phone: Start: 10-02-2023 End: 10-02-2023 Admission to same day surgery center MD Viky Stanford Work Phone: [facility] Work Phone: Start: 10-02-2023 End: 10-02-2023 ambulatory MD Viky Stanford Work Phone: [facility] Work Phone: Start: 09-23-2023 End: 09-23-2023 ambulatory Viky Stanford Other [facility] Other Start: 09-23-2023 Telephone encounter Viky Stanford [facility] Start: 09-09-2023 End: 09-09-2023 ambulatory ROMELIA Keith APLING Not Available Start: 09-04-2023 End: 09-04-2023 ambulatory ROMELIA Keith APLING Not Available Start: 09-03-2023 End: 09-03-2023 ambulatory Viky Stanford Other [facility] Other Start: 09-03-2023 Telephone encounter Viky Stanford [facility] Start: 08-30-2023 End: 08-30-2023 ambulatory Viky Stanford Other [facility] Other Start: 08-30-2023 Office outpatient visit 15 minutes Viky Stanford [facility] Start: 08-30-2023 End: 08-30-2023 Patient encounter procedure MD Viky Stanford Work Phone: [facility]- Start: 08-23-2023 End: 08-23-2023 ambulatory Viky Stanford Other [facility] Other Start: 08-23-2023 Telephone encounter Viky Stanford [facility] Start: 08-21-2023 End: 08-21-2023 ambulatory Imad Asaad Other [facility] Other Start: 08-21-2023 Office outpatient ne w 45 minutes Imad Asaad [facility] Start: 08-21-2023 End: 08-21-2023 Patient encounter procedure MD Viky Stanford Work Phone: [facility] Work Phone: Start: 07-15-2023 End: 07-15-2023 ambulatory Viky Stanford Other [facility] [employer] Other Start: 07-15-2023 Office outpatient visit 15 minutes Viky Stanford [facility] Start: 07-15-2023 Telephone encounter Viky Stanford [facility] Start: 07-15-2023 End: 07-15-2023 Patient encounter procedure MD Viky Stanford Work Phone: [facility] Work Phone: Start: 07-06-2023 End: 07-06-2023 Patient encounter procedure MD Viky Stanford Work Phone: [facility] Luis Alfredo Work Phone: Start: 10-03-2022 End: 10-05-[address] VIKY STANFORD Facility:[facility] Start: 09-27-2022 End: 09-28-[address] MASSIMO MATTHEWS . Facility:[facility] Start: 09-11-2022 End: 09-11-[address] MASSIMO MATTHEWS . Facility:[facility] Start: 09-07-2022 End: 10-17-[address] MASSIMO MATTHEWS . Facility:[facility] Start: 09-04-2022 End: 09-05-[address] MASSIMO MATTHEWS . Facility:[facility] Start: 07-26-2022 Encounter for preprocedural laboratory examination DR MASSIMO MATTHEWS . [facility] Start: 07-24-2022 End: 07-24-[address] MASSIMO [...] Facility: Start: 04-20-2022 End: 04-21-2022 ambulatory ARIADNA S OVIDIO Facility:[facility] Start: 04-09-2022 End: 04-10-[address] VIKY STANFORD Facility: Start: 02-27-2022 End: 02-28-2022 ambulatory DEFAULT PHYSICIAN Facility:[facility] Start: 02-22-2022 End: 02-23-[address] MASSIMO MATTHEWS . Facility: Start: 12-06-2021 ambulatory MICHELE SALDAÑA . Facility:[facility] Start: 11-30-2021 End: 12-01-[address] MASSIMO MATTHEWS . Facility: Start: 10-25-2020 Pre-procedure evaluation check Viky Stanford Other [facility] Other Procedures Date Procedure Procedure Detail Performing Clinician Start: 06-26-2024 Ct pelvis w/o contrast material Echo Ham DO Work Phone: Start: 06-02-2024 Blood count complete auto&auto difrntl wbc Ling Rojas MD Work Phone: Start: 06-02-2024 Ecg routine ecg w/least 12 lds w/i&r Ling Rojas MD Work Phone: Start: 04-15-2024 Arthrocentesis aspir&/inj major jt/bursa w/o us Romelia B Sarahi [employer] ADMINISTRATOR Work Phone: Start: 04-15-2024 Radiologic examination knee 3 views Danae a B Sarahi [employer] ADMINISTRATOR Work Phone: Start: 03-20-2024 Colonoscopy MD Viky Stanford Work Phone: Start: 10-02-2023 Esophagogastroduodenoscopy MD Viky fox Work Phone: Start: 07-10-2017 Screening mammography Viky Stanford Other Start: 07-19-2016 General examination of patient Viky padilla Other Plan of Treatment Date Care Activity Detail Author Start: 04-23-2032 DTaP/Tdap/Td vaccine (2 - Td or Tdap) DTaP/Tdap/Td vaccine (2 - Td or Tdap) [facility] Start: 06-09-2024 End: 06-09-2024 Admission to same day surgery center 06/09/2024 7:30 AM EDT - 06/09/2024 9:30 [place] [address] [place] [address] Echo Ham, DO [address] [place], [place] [id number] RIGHT MINIMALLY INVASIVE SURGERY SACROILIAC JOINT FUSION POSTERIOR WITH SI BONE [facility] [place] Comment on above: RIGHT MINIMALLY INVA SIVE SURGERY SACROILIAC JOINT FUSION POSTERIOR WITH SI BONE Start: 06-09-2024 End: 06-09-2024 Anesthesia consultation 06/09/2024 7:30 AM EDT [place] [address] [place] [address] Ricco Foote MD [address] [facility] [address] [place] [address] [facility] [place] Start: 06-09-2024 End: 06-09-2024 Arthrodesis sacroiliac joint percutaneous SACROILIAC JOINT FUSION POSTERIOR Chronic right SI joint pain 06/09/2024 7:30 AM EDT [facility] [place] Start: 06-09-2024 Subsequent hospital visit by physician 06/09/2024 7:30 AM EDT [place] [address] [place] [address] Echo Ham, DO [address] [place], [place] [id number] [facility] [place] Start: 05-27-2024 Annual Wellness Visi t (Medicare) Annual Wellness Visit (Medicare) [facility] Start: 04-29-2024 End: 04-29-2024 Patient encounter procedure [facility] Comment on above: Left knee pain, unsp ecified chronicity (Primary Dx); Arthritis of left knee Start: 04-15-2024 End: 04-15-2024 Patient encounter procedure 04/15/2024 11:15 AM EDT Office Visit [facility] [address] [place] [address] Romelia Mcclain NP [address] [place] [address] Left knee pain, unspecified chronicity (Primary Dx) [facility] Comment on above: Left knee pain, unsp ecified chronicity (Primary Dx) Start: 04-12-2024 COVID-19 Vaccine ( season) COVID-19 Vaccine ( season) [facility] Start: 04-12-2024 Influenza vaccination Influenza Vacc ine (#1) [facility] Start: 03-20-2024 [facility] Start: 10-02-2023 [facility] Start: 2001 Screening for osteoporosis DEXA (modify frequency per FRAX score) [facility] Start: 1964 Hepatitis C screening Hepatitis C sc reen [facility] Start: 1958 Depression Screen Depression Screen [facility] Patient Education Hemorrhoids (D C) Know your Meds [facility] Work Phone: Immunizations Immunization Date Immunization Notes Care Provider Fa cility 04-16-2023 influenza virus vaccine, unspecified formulation Romelia Mcclain NP Work Phone: [facility] 05-17-2022 zoster vaccine, live Viky Stanford Other [facility] 04-23-2022 influenza virus vaccine, split virus (incl. purified surface antigen) Viky Stanford Other [facility] Other 04-23-2022 influenza virus vaccine, unspecified formulation MD Viky Stanford Work Phone: [facility] 04-23-2022 pneumococcal polysaccharide vaccine, 23 valent Viky Stanford Other [facility] 04-23-2022 tetanus toxoid, adsorbed Viky Stanford Other [facility] 05-25-2021 influenza virus vaccine, split virus (incl. purified surface antigen) Viky Stanford Other [facility] [employer] Other 05-25-2021 influenza virus vaccine, unspecified formulation MD Viky Stanford Work Phone: [facility] 10-18-2020 COVID-19 Vaccine Moderna - Documentation Purposes Only Viky Stanford Other [facility] 09-19-2020 COVID-19 Vaccine Moderna - Documentation Purposes Only Viky Stanford Other [facility] 04-16-2020 influenza virus vaccine, split virus (incl. purified surface antigen) Viky Stanford Other [facility] [employer] Other 04-16-2020 influenza virus vaccine, unspecified formulation MD Viky Stanford Work Phone: [facility] 05-12-2019 influenza virus vaccine, split virus (incl. purified surface antigen) Viky Stanford Other [facility] [employer] Other 05-12-2019 influenza virus vaccine, unspecified formulation MD Viky Stanford Work Phone: [facility] 04-18-2018 influenza virus vaccine, split virus (incl. purified surface antigen) Viky Stanford Other [facility] [employer] Other 04-18-2018 influenza virus vaccine, unspecified formulation MD Viky Stanford Work Phone: [facility] 07-10-2017 pneumococcal conjuga te vaccine, 13 valent Viky Stanford Other [facility] 04-18-2017 influenza virus vaccine, split virus (incl. purified surface antigen) Viky Stanford Other [facility] Other 04-18-2017 influenza virus vaccine, unspecified formulation MD Viky Stanford Work Phone: [facility] 05-09-2016 influenza virus vaccine, split virus (incl. purified surface antigen) Viky Stanford Other [facility] Other 05-09-2016 influenza virus vaccine, unspecified formulation MD Viky Stanford Work Phone: [facility] 05-27-2013 tetanus and diphther ia toxoids, adsorbed, preservative free, for adult use (5 Lf of tetanus toxoid and 2 Lf of diphtheria toxoid) Viky Stanford Other [facility] 12-24-2011 pneumococcal polysaccharide vaccine, 23 valent Viky Stanford Other [facility] Payers Date Payer Category Payer Self-pay 2022 Unknown 2011 Medicare 1959 Medicare [id number] 1959 Unknown [id number] 1945 Unknown [id number] 2.16.8 40.1.911562.3.579.2.647 1945 Unknown [id number] 2.16.8 40.1.216959.3.579.2.647 1945 Unknown [id number] 2.16.84 0.1.180951.3.579.2.593 1945 Unknown [id number] 2.16.84 0.1.136776.3.579.2.593 1945 Unknown [id number] 2.16.84 0.1.404963.3.579.2.593 1945 Unknown [id number] 2.16.84 0.1.889576.3.579.2.593 1945 Unknown [id number] 2.16.84 0.1.468137.3.579.2.593 1946 Unknown [id number] 2.16.84 0.1.031304.3.579.2.593 1946 Unknown [id number] 2.16.84 0.1.128195.3.579.2.593 1946 Unknown [id number] 2.16.84 0.1.897768.3.579.2.593 1946 Unknown [id number] 2.16.84 0.1.910281.3.579.2.593 1946 Unknown [id number] 2.16.84 0.1.354121.3.579.2.593 1946 Unknown [id number] 2.16.84 0.1.074181.3.579.2.593 1946 Unknown [id number] 2.16.84 0.1.617833.3.579.2.593 1946 Unknown [id number] 2.16.84 0.1.012311.3.579.2.593 1946 Unknown [id number] 2.16.84 0.1.625460.3.579.2.593 1946 Unknown [id number] 2.16.84 0.1.760179.3.579.2.1259 1946 Unknown [id number] 2.16.84 0.1.638366.3.579.2.1259 1946 Unknown [id number] 2.16.84 0.1.079467.3.579.2.1259 1946 Unknown [id number] 2.16.84 0.1.744068.3.579.2.1259 1946 Unknown [id number] 2.16.84 0.1.650224.3.579.2.1259 1946 Unknown [id number] 2.16.84 0.1.863401.3.579.2.1259 1946 Unknown [id number] 2.16.84 0.1.603563.3.579.2.1259 1946 Unknown [id number] 2.16. 840.1.809203.3.579.2.175 1946 Unknown [id number] 2.16. 840.1.512881.3.579.2.175 1946 Unknown [id number] 2.16.8 40.1.256658.3.579.2.176 1945 Unknown [id number] 2.16. 840.1.938535.3.579.2.196 1945 Unknown [id number] 2.16. 840.1.819877.3.579.2.196 Medicare Medicare Outpatient [id number] Unknown [id number] 2.16.8 40.1.442397.3.579.2.531 Social History Date Type Detail Facility Unknown if ever smoked [facility] Other Start: 03-16-2024 End: 06-02-2024 Sex Assigned At [facility] Other Start: 12-31-2022 End: 10-02-2023 Tobacco smoking status NHIS Never smoked tobacco (finding) [facility] Start: 1945 Sex Assigned At Female F [facility] Start: 12-31-2022 End: 06-02-2024 Tobacco use and exposure Smokeless tobacco non-user [facility] Start: 03-16-2024 End: 06-02-2024 Alcoholic beverage intake Current drinker of alcohol (finding) [facility] Start: 03-16-2024 End: 06-02-2024 History of Social function [facility] Physical abuse Denies [facility] Start: 06-02-2024 Alcohol Comment occas[facility]ally [facility] Start: 1945 Sex assigned at Not on file N [facility] Start: 06-07-2024 Gender identity Identifies as female gender (finding) [facility] Start: 12-31-2022 Alcohol Comment 5-6x/year [facility] Medical Equipment Procedure Code Equipment Code Equipment Origin al Text Equipment Identifier Dates Joint Sacroiliac 11.5x50 Mm [facility] - [id number] Start: 06-09-2024 Joint Sacroiliac 11.5x35 Mm [employer] - [id number] Start: 06-09-2024 Joint Sacroiliac 11.5x35 Mm [facility] - [id number] Start: 06-09-2024 Goals Date Patient Goal Desired Activity /State Clinical Notes 11-30-2021 to 06-02-2024 Discharge InstructionsRomelia Mcclain NP - 04/29/2024 8:00 AM EDChris Mcclain NP - 04/15/2024 11:15 AM EDT Note Date & Type Note Facility 06-02-2024 Hospital Discharge instructions Cristopher Escobar RN - 06/02/2024 2:51 PM EDT Preoperative Instructions: Stop eating solid foods at midnight the night prior to your surgery. Stop drinking clear liquids at midnight the night prior to your surgery. Arrive at the surgery center C entrance) on ___[id number] by ____0530-0600am . Please stop any blood [...] drive you home after your procedure. Your straddle bug driver must be 18 years of age [...] of surgery documented in this encounter [facility] 04-29-2024 History of Present illness Narrative Images from the original note were not included. Subjective Patient ID: Arianne Murdock is a 78 y.o. female. LT Knee 2 weeks s/p depo medrol injection (04/15/24) with 50% improvement, notes it does not feel as unstable as before, and she still has all of the symptoms but they are less severe LT knee pain x 5+years (2019) NKI. Notes she has to go up and down stairs one leg at a time. Pain anterior, below and above patella. Notes she also gets some lower leg pain, but believes this stems from her foot, she had bunion surgery in November. Describes pain as a constant dull ache, but the sharp pain with certain movements have resolved. She was told she should walk a mile a day since her back surgery (03/27/24) 5 weeks ago. Her knee pain limits her ability to walk this much. Pain at rest 3/10. Pain at worst 5/10 going up and down stairs. Denies N/T. Admits on and off swelling medially, this has resolved. She takes TYL as needed. Has tried ice, heat, biofreeze, and lidocaine roll on all with little relief. Denies waking at night. Denies cracking/popping. Denies locking/catching. TX: ice, heat, biofreeze, lidocaine roll, tyl, XR [facility] 04/15/24, 04/15/24 depo medrol injection Objective Left Knee Exam Tests Jil: Medial - negative Lateral - negative Knee Musculoskeletal Exam Inspection Left Erythema: none Effusion: mild Edema: none Ecchymosis: none Palpation Left Crepitus: patellofemoral Tenderness: present Medial joint line: mild Range of Motion Left Active extension: 0 Active flexion: 120 Instability Left Medial Jil test: negative Lateral Jil test: negative Assessment/Plan Encounter Diagnoses: ICD-10-CM 1. Left knee pain, unspecified chronicity M25.562 2. Arthritis of left knee M17.12 Discussion of another injection and she will think about, discussed also using voltaren gel and she will contact her back surgeon and see if this is ok, activities as tolerated, f/U prn documented in this encounter [facility] 04-15-2024 History of Present illness Narrative Associated Order(s): L Inj/Asp: L knee Post-Procedure Diagnose(s): Arthritis of left knee Images from the original note were not included. Subjective Patient ID: Arianne Murdock is a 78 y.o. female. LT Knee LT knee pain x 5+years (2019) NKI. Notes she has to go up and down stairs one leg at a time. Pain anterior, below and above patella. Notes she also gets some lower leg pain, but believes this stems from her foot, she had bunion surgery in November. Describes pain as a constant dull ache and can be sharp with certain movements. She was told she should walk a mile a day since her back surgery two weeks ago. Her knee pain limits her ability to walk this much. Pain at rest 3/10. Pain at worst 7-8/10 going up and down stairs. Denies N/T. Admits on and off swelling medially. She takes tyl as needed. Has tried ice, heat, biofreeze, and lidocaine roll on all with little relief. Denies waking at night. Denies cracking/popping. Denies locking/catching. Admits giving out sensation. TX: ice, heat, biofreeze, lidocaine roll, tyl, XR [facility] 04/15/24 Objective Left Knee Exam Tests Jil: Medial - negative Lateral - negative Knee Musculoskeletal Exam Inspection Left Erythema: none Effusion: mild Edema: none Ecchymosis: none Palpation Left Crepitus: patellofemoral Tenderness: present Medial joint line: mild Patella: mild Range of Motion Left Active extension: 0 Active flexion: 120 Strength Right Extension: 4/5. Flexion: 4/5. Left Extension: 4/5. Flexion: 4/5. Instability Left Varus stress grade: normal Valgus stress grade: normal Medial Jil test: negative Lateral Jil test: negative XR knee 3 views left Imaging Result: April 15, 2024 x-rays AP weight-bearing bilateral knees lateral and sunrise of the left knee demonstrate medial compartment narrowing bilateral knees left slightly more advanced than the right. Subchondral sclerosis is noted. Subchondral sclerosis is noted in the patellofemoral joint. No fractures detected. Impression: Osteoarthritis bilateral knees Echo Hines Inj/Asp: L knee on 04/15/2024 11:43 AM Indications: pain Details: 20 G needle, anterolateral approach Medications: 40 mg methylPREDNISolone acetate 40 MG/ML Procedure, treatment alternatives, risks and benefits explained, specific risks discussed. Consent was given by the patient. Assessment/Plan Encounter Diagnoses: ICD-10-CM 1. Left knee pain, unspecified chronicity M25.562 XR knee 3 views left 2. Arthritis of left knee M17.12 L Inj/Asp: L knee Discussion of options, pt notes she would like an injection, side effects of bleeding and infection discussed, would like to proceed with the injection, using aspectic technique 40 mg of depo medrol was injected into the left lateral knee, pt tolerated well, bandaid applied, may do activities as tolerated, f/u in 2 weeks. documented in this encounter [facility] 03-20-2024 Procedure note [facility] 10-02-2023 Procedure note [facility] 08-30-2023 Evaluation note Encounter Date Diagnosis Assessment [...] try OTC ones in meantime. Referral placed. [facility] Other 01-10-2024 Evaluation note* Encounter Date Diagnosis Assessment Notes Treatment Notes Treatment Clinical Notes Aug, GERD (gastroesophageal reflux disease) (ICD-10 - K21.9) Aug, Chronic diarrhea (ICD-10 - K52.9) Patient reports that her last colonoscopy was at the [facility] about 11 years ago and that she can not remember who preformed the procedure Aug, Abdominal pain (ICD-10 - R10.9) Aug, Weight loss, unintentional (ICD-10 - R63.4) Aug, Change in bowel habits (ICD-10 - R19.4) Patinet is advised to have a colonoscopy ordered, scheduled and prep instructions given today Risks and benefits of procedure explained to patient; patient verbalizes understanding. [facility] Other 12-04-2023 Evaluation note* Encounter Date Diagnosis [...] (ICD-10 - M81.0) Due for Dexa 08/2023 [facility] Other 02-16-2023 NoteCONSULTATION CONSULTATION DATE: 09/27/2022 HISTORY OF PRESENT ILLNESS: This is a 76-year-old female who returns to the clinic status post LES on 09/11/2022. The patient states she was afforded between 50-60% relief. Depending on her physical activity, determines her level of comfort. 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, housework and lifting greatly aggravate her [...] Patient is in agreement with this plan.[facility] [id number] NoteCONSULTATION CONSULTATION DATE: 09/04/2022 HISTORY OF PRESENT [...] patient understands and would like to proceed.[facility] [id number] NoteCONSULTATION CONSULTATION DATE: 07/11/2022 HISTORY OF PRESENT [...] followed up in the clinic post procedure.[facility] [id number] NoteCONSULTATION PROCEDURE DATE: 07/11/2022 PREOPERATIVE DIAGNOSIS: Bilateral [...] will be followed up in the clinic.[facility] 06-06-2022 NoteCONSULTATION CONSULTATION DATE: 06/06/2022 HISTORY [...] pain returning. 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 The patient has not seen a tip scourer in the past. REVIEW OF SYSTEMS, PAST [...] mg q.h.s. A referral to rheumatology near [place] will be sent on her behalf and I highly encouraged her to seek consultation, particularly since she has a familial history of autoimmune diseases. The patient agrees with the plan of care and will be followed up in the office in three months' time. IF Signed and Approved by: MICHELE SALDAÑA . 03/02/2022 14:16:00[facility]04-21-2022 NoteCONSULTATION Consultation Date:11/30/2021 PREOPERATIVE DIAGNOSIS: Right gluteal [...] and Approved by: MICHELE SALDAÑA . 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 Lying down and using heat decrease her pain. Prior to the procedure, she was in a state of acute pain and was placed on a short term course of [place] 5/325 b.i.d. p.r.n. Patient states she only [...] and Approved by: MICHELE SALDAÑA . 12/06/2021 16:15:00[facility] noteNo InformationNort [facility] Other Evaluation noteNo assessment information available [facility] Work Phone: Evaluation note* Diagnosis Onset Date Resolution Status Lumbar spondylosis acute Preoperative clearance acute Situational depression acute [facility] Work Phone: evaluation note* Diagnosis Pre-op testing- Primary Preoperative examination, unspecified Chronic right SI joint pain Disorders of sacrum [facility] Diagnosis Sacroiliitis (HCC) Sacroiliitis, not elsewhere classified [facility] [place] Diagnosis Left knee pain, unspecified chronicity- Primary Arthritis of left knee [facility] Diagnosis Left knee pain, unspecified chronicity- Primary Arthritis of left knee documented [facility] this encounter [facility] Author Sunny Torres [facility] October 02, 2023 8:54am Note Date/Time October 02, 2023 8:54am [facility] [address] [place] [address] Gastroenterology H&P Signed Patient: Arianne Murdock MR#: [id number] : 1945 Acct:[id number] Age/Sex: 78 / F Adm Date: 4 Loc: Room: Type: [facility] Attending Dr: Sunny Torres MD Copies [...] signed by Sunny Torres MD> 10/02/23 0854 [facility] Work Phone: History and physical note Author Sunny Torres [facility] March 20, 2024 8:43am Note Date/Time March 20, 2024 8:4 3am [facility] [address] [place] [address] Gastroenterology H&P Signed Patient: Arianne Murdock MR#: [id number] : 1945 Acct:[id number] Age/Sex: 78 / F Adm Date: 4 Loc: Room: Type: [facility] Attending Dr: Sunny Torres MD Copies [...] signed by Sunny Torres MD> 03/20/24 0843 [facility] [...] shoulder pain 1982 Hospitalization History migraines 1992 [facility] Other Hospital Discharge instructions Additional Instructions DISCHARGE [...] up in the office - Office number [phone]. [facility] Work Phone: Summary Purpose Family [...] 1 Chronic diarrhea (K5 2.9) Referral Organization [facility] [employer] [facility] pipo Referring Provider First Name Viky Referring Provider Last Name Abdoulaye Referring Provider Specialty [facility] Referred Organization [facility] Gastroenterolo gy Referred Address [address],[address] Referred Provider Specialty Gastroentero logy Referral Priority Routine Reason *FU 09/06 R foot p ain Diagnosis 1 Pain of left great t oe (M79.675) Referral Organization [facility] [employer] [facility] Referring Provider First Name Viky Referring Provider Last Name Abdoulaye Referring Provider Specialty [facility] Referred Organization [facility] Referred Provider Odin Chong Referred Address [address], [place],[address] Referred Provider Specialty Podiatry - S urgical Chiropody Referral Priority Routine General Notes Shefali Carroll 12:44:49 PM >received today, notes locked, ins attached, referral faxed Specialty Diagnoses / Procedures Referred By Contac t Referred To Contact Radiology Diagnoses Sacroiliitis (HCC) Procedures CT PELVIS WO CONTRAST Additional Contrast? None Dany, Echo Mir DO [address] [place] [address] Referral ID Status Reason Start Date Expiration Date Visits Re quested Visits Authorized [id number] Closed 06/24/2024 06/24/2025 1 1 Specialty Diagnoses / Procedures Referred By Contac t Referred To Contact Orthopaedic Surgery Diagnoses Arthritis of left knee Procedures L Inj/Asp: L knee Apling, Romelia Keith, [employer] EXCH[employer] ADMINISTRATOR [address] [facility] [address] [place] [address] Referral ID Status Reason Start Date Expiration Date Visits Re quested Visits Authorized [id number] Closed 04/15/2024 10/12/2024 1 1 Chief Complaint and Reason for [...] and content) DATE CREATED AUTHOR 05/09/2022 [facility] DATE CREATED AUTHOR AUTHOR'S ORGANIZ ATION 11/17/2022 [facility] DATE CREATED AUTHOR AUTHOR'S ORGANIZ ATION 04/01/2024 [facility] DATE CREATED AUTHOR AUTHOR'S ORGANIZ ATION 05/01/2024 [facility] EPIC DATE CREATED AUTHOR AUTHOR'S ORGANIZ ATION 06/14/2024 [facility] DATE CREATED AUTHOR AUTHOR'S ORGANIZ ATION 06/30/2024 [facility] DATE CREATED AUTHOR AUTHOR'S ORGANIZ ATION 07/12/2024 [facility] REASON FOR VISIT (unrecogniz ed section and content) Specialty Diagnoses / Procedures Referred By Contac t Referred To Contact Radiology Diagnoses Sacroiliitis (HCC) Procedures CT PELVIS WO CONTRAST Additional Contrast? None Ham, Echo Mir, DO [address] [place] [place] [address] Referral ID Status Reason Start Date Expiration Date Visits Re quested Visits Authorized [id number] Closed 06/24/2024 06/24/2025 1 1 Reason Comments Follow-up Reason Comments Pain Care Teams (unrecognized sec tion and content) [...] Provider Act cara Start: March 20, 2024 Dosier Operator Relationship Specialty Start Date End Date Viky Stanford MD [address] [facility] [place] [phone] PCP - General Family Medicine 06/02/24 Dosier Operator Relationship Specialty Start Date End Date Viky Stanford MD [address] [facility] [place] [phone] PCP - General Family Medicine 06/02/24 Dosier Operator Relationship Specialty Start Date End Date Viky Stanford MD [address] [facility] [place] [address] PCP - General Family Medicine 12/31/22 Dosier Operator Relationship Specialty Start Date End Date Viky Stanford MD [address] [facility] [place] [address] PCP - General Family Medicine 12/31/22 Dosier Operator Relationship Specialty Start Date End Date Viky Stanford MD [address] [facility] [place] [address] PCP - General Family Medicine 12/31/22 Dosier Operator Relationship Specialty Start Date End Date Viky Stanford MD [address] [place] [facility] [place] [phone] PCP - General Family Medicine 12/31/22 FOR RECORDS PERTAINING TO PATIENTS WHO ARE [...] BE BASED ON THE PRIMARY CLINICAL RECORDS. [facility]. provides no warranty or guarantee of the accuracy or completeness of information in this document.
[2024-07-31] MEDS: LIDOCAINE/EPINEPHRINE/TETRACAINE 3 ML GEL.PF.APP TOPICAL (16:11)
--- NOTE | 2024-07-31 16:35 | ED.GENADUL1 ---
Documented by User: Marnie Marquez 07/31/24 16:39 HPI HPI - General Adult General Chief complaint: Wound/Laceration Stated complaint: R RING FINGER LACERATION Time Seen by Provider: 07/31/24 15:37 Source: patient Mode of arrival: walk-in Limitations: no limitations History of Present Illness HPI narrative: Pleasant 78-year-old female presents here with a chief complaint of a partial nail avulsion to the right ring finger. She is right-handed. She states she was cutting vegetables excellently sliced her hand with a grater. She has a 25% avulsion of the distal aspect of the ring finger nail. Remainder of the nail is intact. She is up-to-date on tetanus immunization. She presented here to the emergency room at the injury occurred at noon and she has been unable to get the bleeding to stop. She is not on blood thinners. She is up-to-date on her tetanus immunization. Related Data Home Medications ?Medication ?Instructions ?Recorded ?Confirmed denosumab 60 mg/mL subcutaneous 60 mg subcut .[id number] 04/10/23 07/27/24 syringe (Prolia) geriatric multivitamin-min 1 cap PO DAILY 04/10/23 07/27/24 magnesium 200 mg tablet 400 mg PO BID 04/10/23 07/27/24 pantoprazole 40 mg tablet,delayed 40 mg PO DAILY 07/24/23 07/27/24 release Previous Rx's ?Medication ?Instructions ?Recorded baclofen 10 mg tablet See Rx Instructions .Route 07/15/24 .COMPLEX #90 tabs hydrocodone 7.5 mg-acetaminophen 1 tab PO TID PRN pain #90 tabs 07/15/24 325 mg tablet pregabalin 75 mg capsule (Lyrica) 75 mg PO TID #90 caps 07/15/24 Allergies Allergy/AdvReac Type Severity Reaction Status Date / Time No Known Drug Allergies Allergy Verified 07/31/24 14:20 Opioid HPI Opioid Management Most Recent Opioid Data: Last Pain Scale 6 07/27/24 08:42 07/27/24 Last Pain Intensity 6 03/28/24 09:15 03/28/24 Last ORT Total Score 0 03/27/24 14:00 03/27/24 Last ORT Risk Category Low Risk 03/27/24 14:00 03/27/24 Review of Systems ROS Narrative All Systems are negative except as noted/marked.All systems reviewed and otherwise negative [facility] Medical History DDD (degenerative disc disease) Postoperative pain ?G89.18 - Other acute postprocedural pain (ICD-10) Encounter for long-term opiate analgesic use ?Z79.891 - custodial (current) use of opiate analgesic (ICD-10) Sacroiliac joint pain ?M53.3 - Sacrococcygeal disorders, not elsewhere classified (ICD-10) Sacroiliac joint dysfunction of right side ?M53.3 - Sacrococcygeal disorders, not elsewhere classified (ICD-10) Muscle spasm ?M62.838 - Other muscle spasm (ICD-10) Bilateral sacroiliitis ?M46.1 - Sacroiliitis, not elsewhere classified (ICD-10) Lumbar radiculopathy ?M54.16 - Radiculopathy, lumbar region (ICD-10) Lumbar spondylosis ?M47.816 - Spondylosis without myelopathy or radiculopathy, lumbar region (ICD-10) Chronically on opiate therapy ?Z79.891 - custodial (current) use of opiate analgesic (ICD-10) Osteoporosis ?M81.0 - Age-related osteoporosis without current pathological fracture (ICD-10) Primary osteoarthritis, left ankle and foot ?M19.072 - Primary osteoarthritis, left ankle and foot (ICD-10) Bunionette of left foot ?M21.622 - Bunionette of left foot (ICD-10) Hallux valgus (acquired), left foot ?M20.12 - Hallux valgus (acquired), left foot (ICD-10) Back pain ?M54.9 - Dorsalgia, unspecified (ICD-10) Arthritis ?M19.90 - Unspecified osteoarthritis, unspecified site (ICD-10) Vertigo ?R42 - Dizziness and giddiness (ICD-10) Headache ?R51.9 - Headache, unspecified (ICD-10) Migraine ?G43.909 - Migraine, unspecified, not intractable, without status migrainosus (ICD-10) Multiple fractures ?T07.XXXA - Unspecified multiple injuries, initial encounter (ICD-10) Microscopic colitis ?K52.839 - Microscopic colitis, unspecified (ICD-10) Hiatal hernia ?K44.9 - Diaphragmatic hernia without obstruction or gangrene (ICD-10) Syncopal episodes (2019) ?R55 - Syncope and collapse (ICD-10) Osteopenia ?M85.80 - Other specified disorders of bone density and structure, unspecified site (ICD-10) Osteoarthritis ?M19.90 - Unspecified osteoarthritis, unspecified site (ICD-10) Neck pain ?M54.2 - Cervicalgia (ICD-10) Low back pain ?M54.50 - Low back pain, unspecified (ICD-10) Heartburn ?R12 - Heartburn (ICD-10) Acid reflux ?K21.9 - Gastro-esophageal reflux disease without esophagitis (ICD-10) Surgical History History of bunionectomy ?Z98.890 - Other specified postprocedural states (ICD-10) History of esophagogastroduodenoscopy (EGD) ?Z98.890 - Other specified postprocedural states (ICD-10) History of colonoscopy ?Z98.890 - Other specified postprocedural states (ICD-10) History of carpal tunnel release ?Z98.890 - Other specified postprocedural states (ICD-10) S/P cataract extraction and insertion of intraocular lens ?Z98.49 - Cataract extraction status, unspecified eye (ICD-10) ?Z96.1 - Presence of intraocular lens (ICD-10) History of repair of rotator cuff ?Z98.890 - Other specified postprocedural states (ICD-10) H/O radiofrequency ablation (RFA) of nerve of lumbar spine ?Z98.890 - Other specified postprocedural states (ICD-10) H/O shoulder surgery ?Z98.890 - Other specified postprocedural states (ICD-10) History of ear, nose, and throat (ENT) surgery ?Z98.890 - Other specified postprocedural states (ICD-10) H/O carpal tunnel repair ?Z98.890 - Other specified postprocedural states (ICD-10) H/O wrist surgery ?Z98.890 - Other specified postprocedural states (ICD-10) H/O section ?Z98.891 - History of uterine scar from previous surgery (ICD-10) Family History Other Family history of colon cancer Family history of diabetes mellitus Family history of heart disease Family history of ovarian cancer Family history of prostate cancer Family history of throat cancer Family history of uterine cancer Social History Within the past year, how often did you have a drink containing alcohol: monthly or less Smoking status: Never smoker Non-prescribed substance use: denies use Previous occupational history: retired Known occupational exposures/hazards: No Highest level of school completed/degree received: some college, no degree Little interest or pleasure in doing things: not at all Feeling down, depressed, or hopeless: not at all Exam Narrative Exam Narrative: Nurses note and vital signs reviewed and patient is not hypoxic. General: The patient appears well and in no apparent distress. Patient is resting comfortably on cart. Skin: Warm, dry, no pallor noted. There is no rash noted. Head: Normocephalic, atraumatic Eye: Normal conjunctiva, no drainage, EOMI. PERRL Ears, Nose, Mouth, and Throat: oral mucosa is moist. Nares patent. Mouth without vesicles. Ear canals patent. Tm's without Erythema Cardiovascular: Regular Rate and Rhythm Respiratory: Patient is in no distress, no accessory muscle use, lungs are clear to auscultation, no wheezing, rales or rhonchi Musculoskeletal: right ring finger partial nail avulsion. small amount of bleeding noted, good capillary refill distally. remainder of extremities are unremarkable Neurological: A&O x4, normal speech Psychiatric: Cooperative Constitutional Vital Signs, click to edit/add: Last Vital Signs Temp 97.6 F 07/31/24 14:14 Pulse 72 07/31/24 14:14 Resp 16 07/31/24 14:14 BP 172/78 H 07/31/24 14:14 Pulse Ox 99 07/31/24 14:14 O2 Del Method Room Air 07/31/24 14:14 Course Vital Signs Vital signs: Vital Signs Temperature 97.6 F 07/31/24 14:14 Pulse Rate 72 07/31/24 14:14 Respiratory Rate 16 07/31/24 14:14 Blood Pressure 172/78 H 07/31/24 14:14 Pulse Oximetry 99 07/31/24 14:14 Oxygen Delivery Method Room Air 07/31/24 14:14 Temperature 97.6 F 07/31/24 14:14 Pulse Rate 72 07/31/24 14:14 Respiratory Rate 16 07/31/24 14:14 Blood Pressure 172/78 H 07/31/24 14:14 Pulse Oximetry 99 07/31/24 14:14 Oxygen Delivery Method Room Air 07/31/24 14:14 Medical Decision Making MDM Narrative Medical decision making narrative: Pleasant 78-year-old female presents here with a chief complaint of a partial nail avulsion to the right ring finger. She is right-handed. She states she was cutting vegetables excellently sliced her hand with a grater. She has a 25% avulsion of the distal aspect of the ring finger nail. Remainder of the nail is intact. She is up-to-date on tetanus immunization. She presented here to the emergency room at the injury occurred at noon and she has been unable to get the bleeding to stop. She is not on blood thinners. She is up-to-date on her tetanus immunization. Differential Diagnosis Differential Diagnosis: laceration, avulsion Medical Records Medical records reviewed: Yes I reviewed the patient's medical records Lab Data Lab results reviewed: Yes I reviewed the patient's lab results Discharge Plan Discharge Chief Complaint: Wound/Laceration Clinical Impression: Avulsion of nail Patient Disposition: Home, Self-Care Time of Disposition Decision: 16:33 Condition: Good Prescriptions / Home Meds: No Action pantoprazole 40 mg tablet,delayed release (DR/EC) 40 mg PO DAILY baclofen 10 mg tablet See Rx Instructions .ROUTE .COMPLEX Qty: 90 0RF Rx Instructions: 1/2-1 TAB PO TID PRN pregabalin [Lyrica] 75 mg capsule 75 mg PO TID Qty: 90 0RF hydrocodone-acetaminophen 7.5-325 mg tablet 1 tab PO TID PRN (Reason: pain) Qty: 90 0RF Prolia 60 mg/mL syringe 60 mg subcut .[id number] geriatric multivitamin-min Capsule 1 cap PO DAILY magnesium 200 mg tablet 400 mg PO BID Print Language: Jordanian Instructions: Nail Avulsion (ED) Referrals: Patricia Nicolas MD [Primary Care Provider] - 1 week Discharge Date/Time: 07/31/24 16:40 Documented by User: Devante Rodríguez MD 07/31/24 20:10 HPI HPI - General Adult General Chief complaint: Wound/Laceration Stated complaint: R RING FINGER LACERATION Time Seen by Provider: 07/31/24 15:37 Related Data Home Medications ?Medication ?Instructions ?Recorded ?Confirmed denosumab 60 mg/mL subcutaneous 60 mg subcut .[id number] 04/10/23 07/27/24 syringe (Prolia) geriatric multivitamin-min 1 cap PO DAILY 04/10/23 07/27/24 magnesium 200 mg tablet 400 mg PO BID 04/10/23 07/27/24 pantoprazole 40 mg tablet,delayed 40 mg PO DAILY 07/24/23 07/27/24 release Previous Rx's ?Medication ?Instructions ?Recorded baclofen 10 mg tablet See Rx Instructions .Route 07/15/24 .COMPLEX #90 tabs hydrocodone 7.5 mg-acetaminophen 1 tab PO TID PRN pain #90 tabs 07/15/24 325 mg tablet pregabalin 75 mg capsule (Lyrica) 75 mg PO TID #90 caps 07/15/24 Allergies Allergy/AdvReac Type Severity Reaction Status Date / Time No Known Drug Allergies Allergy Verified 07/31/24 14:20 Opioid HPI Opioid Management Most Recent Opioid Data: Last Pain Scale 6 07/27/24 08:42 07/27/24 Last Pain Intensity 6 03/28/24 09:15 03/28/24 Last ORT Total Score 0 03/27/24 14:00 03/27/24 Last ORT Risk Category Low Risk 03/27/24 14:00 03/27/24 PFSH PFSH Medical History DDD (degenerative disc disease) Postoperative pain ?G89.18 - Other acute postprocedural pain (ICD-10) Encounter for long-term opiate analgesic use ?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 (ICD-10) Sacroiliac joint pain ?M53.3 - Sacrococcygeal disorders, not elsewhere classified (ICD-10) Sacroiliac joint dysfunction of right side ?M53.3 - Sacrococcygeal disorders, not elsewhere classified (ICD-10) Muscle spasm ?M62.838 - Other muscle spasm (ICD-10) Bilateral sacroiliitis ?M46.1 - Sacroiliitis, not elsewhere classified (ICD-10) Lumbar radiculopathy ?M54.16 - Radiculopathy, lumbar region (ICD-10) Lumbar spondylosis ?M47.816 - Spondylosis without myelopathy or radiculopathy, lumbar region (ICD-10) Chronically on opiate therapy ?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 (ICD-10) Osteoporosis ?M81.0 - Age-related osteoporosis without current pathological fracture (ICD-10) Primary osteoarthritis, left ankle and foot ?M19.072 - Primary osteoarthritis, left ankle and foot (ICD-10) Bunionette of left foot ?M21.622 - Bunionette of left foot (ICD-10) Hallux valgus (acquired), left foot ?M20.12 - Hallux valgus (acquired), left foot (ICD-10) Back pain ?M54.9 - Dorsalgia, unspecified (ICD-10) Arthritis ?M19.90 - Unspecified osteoarthritis, unspecified site (ICD-10) Vertigo ?R42 - Dizziness and giddiness (ICD-10) Headache ?R51.9 - Headache, unspecified (ICD-10) Migraine ?G43.909 - Migraine, unspecified, not intractable, without status migrainosus (ICD-10) Multiple fractures ?T07.XXXA - Unspecified multiple injuries, initial encounter (ICD-10) Microscopic colitis ?K52.839 - Microscopic colitis, unspecified (ICD-10) Hiatal hernia ?K44.9 - Diaphragmatic hernia without obstruction or gangrene (ICD-10) Syncopal episodes (2019) ?R55 - Syncope and collapse (ICD-10) Osteopenia ?M85.80 - Other specified disorders of bone density and structure, unspecified site (ICD-10) Osteoarthritis ?M19.90 - Unspecified osteoarthritis, unspecified site (ICD-10) Neck pain ?M54.2 - Cervicalgia (ICD-10) Low back pain ?M54.50 - Low back pain, unspecified (ICD-10) Heartburn ?R12 - Heartburn (ICD-10) Acid reflux ?K21.9 - Gastro-esophageal reflux disease without esophagitis (ICD-10) Surgical History History of bunionectomy ?Z98.890 - Other specified postprocedural states (ICD-10) History of esophagogastroduodenoscopy (EGD) ?Z98.890 - Other specified postprocedural states (ICD-10) History of colonoscopy ?Z98.890 - Other specified postprocedural states (ICD-10) History of carpal tunnel release ?Z98.890 - Other specified postprocedural states (ICD-10) S/P cataract extraction and insertion of intraocular lens ?Z98.49 - Cataract extraction status, unspecified eye (ICD-10) ?Z96.1 - Presence of intraocular lens (ICD-10) History of repair of rotator cuff ?Z98.890 - Other specified postprocedural states (ICD-10) H/O radiofrequency ablation (RFA) of nerve of lumbar spine ?Z98.890 - Other specified postprocedural states (ICD-10) H/O shoulder surgery ?Z98.890 - Other specified postprocedural states (ICD-10) History of ear, nose, and throat (ENT) surgery ?Z98.890 - Other specified postprocedural states (ICD-10) H/O carpal tunnel repair ?Z98.890 - Other specified postprocedural states (ICD-10) H/O wrist surgery ?Z98.890 - Other specified postprocedural states (ICD-10) H/O section ?Z98.891 - History of uterine scar from previous surgery (ICD-10) Family History Other Family history of colon cancer Family history of diabetes mellitus Family history of heart disease Family history of ovarian cancer Family history of prostate cancer Family history of throat cancer Family history of uterine cancer Social History Within the past year, how often did you have a drink containing alcohol: monthly or less Smoking status: Never smoker Non-prescribed substance use: denies use Previous occupational history: retired Known occupational exposures/hazards: No Highest level of school completed/degree received: some college, no degree Little interest or pleasure in doing things: not at all Feeling down, depressed, or hopeless: not at all Exam Constitutional Vital Signs, click to edit/add: Last Vital Signs Temp 97.6 F 07/31/24 14:14 Pulse 72 07/31/24 14:14 Resp 16 07/31/24 14:14 BP 172/78 H 07/31/24 14:14 Pulse Ox 99 07/31/24 14:14 O2 Del Method Room Air 07/31/24 14:14 Course Vital Signs Vital signs: Vital Signs Temperature 97.6 F 07/31/24 14:14 Pulse Rate 72 07/31/24 14:14 Respiratory Rate 16 07/31/24 14:14 Blood Pressure 172/78 H 07/31/24 14:14 Pulse Oximetry 99 07/31/24 14:14 Oxygen Delivery Method Room Air 07/31/24 14:14 Temperature 97.6 F 07/31/24 14:14 Pulse Rate 72 07/31/24 14:14 Respiratory Rate 16 07/31/24 14:14 Blood Pressure 172/78 H 07/31/24 14:14 Pulse Oximetry 99 07/31/24 14:14 Oxygen Delivery Method Room Air 07/31/24 14:14 Medical Decision Making [facility] Narrative Medical decision making narrative: Pleasant 78-year-old female presents here with a chief complaint of a partial nail avulsion to the right ring finger. She is right-handed. She states she was cutting vegetables excellently sliced her hand with a grater. She has a 25% avulsion of the distal aspect of the ring finger nail. Remainder of the nail is intact. She is up-to-date on tetanus immunization. She presented here to the emergency room at the injury occurred at noon and she has been unable to get the bleeding to stop. She is not on blood thinners. She is up-to-date on her tetanus immunization. I, Dr Rodríguez, have reviewed the above progress note and course of action in the ER; agree with the above. I have personally seen and evaluated this patient, gone over history and physical, and discussed disposition and treatment plan with the patient. Discharge Plan Discharge Chief Complaint: Wound/Laceration Clinical Impression: Avulsion of nail Patient Disposition: Home, Self-Care Time of Disposition Decision: 16:33 Condition: Good Prescriptions / Home Meds: No Action pantoprazole 40 mg tablet,delayed release (DR/EC) 40 mg PO DAILY baclofen 10 mg tablet See Rx Instructions .ROUTE .COMPLEX Qty: 90 0RF Rx Instructions: 1/2-1 TAB PO TID PRN pregabalin [Lyrica] 75 mg capsule 75 mg PO TID Qty: 90 0RF hydrocodone-acetaminophen 7.5-325 mg tablet 1 tab PO TID PRN (Reason: pain) Qty: 90 0RF Prolia 60 mg/mL syringe 60 mg subcut .[id number] geriatric multivitamin-min Capsule 1 cap PO DAILY magnesium 200 mg tablet 400 mg PO BID Print Language: Jordanian Instructions: Nail Avulsion (ED) Referrals: Patricia Nicolas MD [Primary Care Provider] - 1 week Discharge Date/Time: 07/31/24 16:40
== END 2024-07-31 16:40 | disposition home or self-care (01) ==
PROVIDERS: Emergency Provider Emergency Medicine; PCP Family Medicine
DX: S61.304A Unspecified open wound of right ring finger with damage to nail, initial encounter (principal); W27.4XXA Contact with kitchen utensil, initial encounter
CPT/HCPCS: 99282

== ENCOUNTER 2024-08-03 11:44 | Outpatient (OUT) | payer MEDICARE, SELFPAY ==
--- OUTSIDE RECORDS SUMMARY | 2024-08-03 12:04 | XMS_ITS | CCD ---
Author Organization [facility] Team Providers Care Concession Stand Attendant Name Role Phone PHYSICIAN, DEFAULT Admitting Unavailable [...] MATTHEWS ., DR MASSIMO Cook Admitting Unavailable MATTHWES ., DR MASSIMO Cook Attending Unavailable STANFORD, DR VIKY Crain Primary Care Unavailable MATTHEWS ., DR MASSIMO Cook Consulting Unavailable Viky Stanford Unavailable Asaad, Imad Unavailable MD Viky Stanford Primary Care Provider MD Sunny Torres Attending Provider MD Viky Stanford Primary Care Provider MD Sunny Torres Attending Provider [phone] Viky Stanford Primary Care Unavailable Asaad, Imad [...] of Onset Reaction(s) Facility (8 sources) Calcitonin (Chelan) *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 Propensity to adverse reactions Comment:severe weakness Composeright Other (3 sources) calcitonin; Translations: [calcitonin] Propensity to adverse reactions 4 Other (See Comments) [facility] (1 source) Fish Oils Drug Allergy 4 Other (See Comments) [facility] Medications Current Medications Medication Drug Class(es) Dates [...] TAB PO Daily March 13, 2024 12:00am Tvsvilk-Jekdddmnip-Rffympp D (Citracal +D3) 250-107-500 MG-MG-UNIT chewable tablet [...] Active Subcutaneous for 0 *Pick strength-form from [facility] for eRX* Aug, Active diclofenac sodium [...] day for 0 days *Pick strength-form from [facility] I/O for eRX* Oct, Active Magnesium 400 MG capsule as directed Orally Active magnesium oxide 400 mg oral tablet (1 source) Start: 03-13-2024 take 1 tablet by mouth once daily Magnesium Oxide Active 400 MG PO Daily March 13, 2024 12:00am FreeText[employer] tablet with a meal Orally Once a day; Note: Source Status: Taking*Pick strength-form from [facility] for eRX*; Provider: Abdoulaye Gomez ( ) Multiple Vitamin (8 sources) take 1 tablet by mouth once daily Multiple Vitamin 1 tablet Orally Once a day Active Multiple Vitamin (MULTIVITAMIN ADULT PO) (6 sources) take 1 capsule by mouth in the morning Multiple Vitamin (MULTIVITAMIN ADULT PO) Take 1 capsule by mouth in the morning. 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 No osseous fusion at this time. [facility] EXAMINATION: CT OF THE PELVIS WITHOUT [...] None. HISTORY ORDERING SYSTEM PROVIDED HISTORY: Sacroiliitis ([facility]) TECHNOLOGIST PROVIDED HISTORY: BACK PAIN [...] related to the previous surgery. Joint: Osteoarthritis [facility] Quyen Ruffin MD - 06/28/2024 EXAMINATION: [...] None. HISTORY ORDERING SYSTEM PROVIDED HISTORY: Sacroiliitis ([facility]) TECHNOLOGIST PROVIDED HISTORY: BACK PAIN [...] joint. No osseous fusion at this time. [facility] Pelvis WO contrastOrdered By: Quyen Ruffin on 06-28-2024 [facility] Work Phone: CT Pelvis WO contraston 06-12 Radiology Study observation (narrative) [facility] FLUORO FOR SURGICAL PROCEDUR ESon 06-09-2024 FLUORO FOR SURGICAL PROCEDURES Radiology exam is complete. No Radiologist dictation. Please follow up with ordering provider. Final result Normal [facility] EKG 12 LeadOrdered By: Carter Machuca on 06-03-2024 Atrial Rate 87 BPM Fransisco Jenkins [facility] Work Phone: P Mobile 32 degrees Fransisco Jenkins [facility] Work Phone: P-R Interval 136 ms Fransisco Secsamantha [facility] Work Phone: Q-T Interval 350 ms Fransisco Secsamantha [facility] Work Phone: QRS Duration 74 ms [facility]ansisco Jenkins [facility] Work Phone: QTc Calculation (Bazett) 421 ms Fransisco Jenkins [employer] Work Phone: R Mobile 12 degrees Fransisco Jenkins [facility] Work Phone: T Mobile 45 degrees Fransisco Jenkins [facility] Work Phone: Ventricular Rate 87 BPM Fransisco rodriguez [employer] Work Phone: Fransisco Jenkins [employer] Work Phone: EKG 12 Leadon 06-03-2024 Normal sinus rhythm Normal ECG No previous ECGs available [facility] Carter Urrutia, DO - 06/03/2024 Normal sinus rhythm Normal ECG No previous ECGs available [facility] CBC with Auto Differentialon 06-02-2024 Basophils (Bld) [#/Vol] 0.06 10*3/uL [facility] Basophils/100 WBC (Bld) 1 % 0 - 2 % [facility] Eosinophils (Bld) [#/Vol] 0.09 10*3/uL [facility] Eosinophils/100 WBC (Bld) 1 % 1 - 4 % [facility] Erythrocyte distribution width (RBC) [Ratio] 12.5 % 11.8 - 14.4 % [facility] Hematocrit (Bld) [Volume fraction] 41.5 % 36.3 - 47.1 % [facility] Hemoglobin (Bld) [Mass/Vol] 13.2 g/dL 11.9 - 15.1 g/dL [facility] [employer] [facility] Immature granulocytes (Bld) [#/Vol] 0.05 10*3/uL [facility] Immature granulocytes/100 WBC (Bld) 1 % High 0 [facility] Interpretation and review of laboratory results Abnormal [facility] Lymphocytes/100 WBC (Bld) 20 % Low 24 - 43 % [facility] Lymphocytes/100 WBC (Bld) 1.62 % [facility] MCH (RBC) [Entitic mass] 31.1 pg 25.2 - 33.5 pg [facility] MCHC (RBC) [Mass/Vol] 31.8 g/dL 28.4 - 34.8 g/dL [facility] MCV (RBC) [Entitic vol] 97.6 fL 82.6 - 102.9 fL [facility] Monocytes/100 WBC (Bld) 10 % 3 - 12 % [facility] Monocytes/100 WBC (Bld) 0.80 % [facility] Neutrophils/100 WBC (Bld) 67 % High 36 - 65 % [facility] Nucleated RBC/100 WBC (Bld) [Ratio] 0.0 % 0.0 per 100 WBC [facility] Platelet mean volume (Bld) [Entitic vol] 10.0 fL 8.1 - 13.5 fL [facility] Platelets (Bld) [#/Vol] 247 10*3/uL [facility] RBC (Bld) [#/Vol] 4.25 10*6/uL 3.95 - 5.1 1 m/uL [facility] Segmented neutrophils/100 WBC (Bld) 5.57 % [facility] WBC other (Bld) [#/Vol] 8.2 [facility] CBC with Diffon 06-02-2024 Abs. Basophil 0.06 k/uL Normal 0.00-0.20 [facility] Comment on above: Performed By: #### C DP #### [employer] [address] [place] [address] Fingerprint Technician: Arpit Cruz MD Abs.Imm.Granulocyte 0.05 k/uL Normal 0.00-0.30 [facility] Comment on above: Performed By: #### C DP #### [address] [address] Fingerprint Technician: Arpit Cruz MD Abs.Neutrophil (Seg) 5.57 k/uL Normal 1.50-8.10 [facility] Comment on above: Performed By: #### C DP #### [address] [address] Fingerprint Technician: Arpit Cruz MD Basophils/100 WBC (Bld) 1 % Normal 0-2 [facility] Comment on above: Performed By: #### C DP #### [address] [address] Fingerprint Technician: Arpit Cruz MD Eosinophils (Bld) [#/Vol] 0.09 10*3/uL Normal 0.00-0.44 [facility] Comment on above: Performed By: #### C DP #### [address] [address] Fingerprint Technician: Arpit Cruz MD Eosinophils/100 WBC (Bld) 1 % Normal 1-4 [facility] Comment on above: Performed By: #### C DP #### [address] [address] Fingerprint Technician: Arpit Cruz MD Erythrocyte distribution width (RBC) [Ratio] 12.5 % Normal 11.8-14.4 [facility] Comment on above: Performed By: #### C DP #### [address] [address] Fingerprint Technician: Arpit Cruz MD Hematocrit (Bld) [Volume fraction] 41.5 % Normal 36.3-47.1 [facility] Comment on above: Performed By: #### C DP #### [address] [address] Fingerprint Technician: Arpit Cruz MD Hemoglobin (Bld) [Mass/Vol] 13.2 g/dL Normal 11.9-15.1 [facility] Comment on above: Performed By: #### C DP #### [address] [address] Fingerprint Technician: Arpit Cruz MD Immature granulocytes/100 WBC (Bld) 1 % High 0 [facility] Comment on above: Performed By: #### C DP #### [address] [address] Fingerprint Technician: Arpit Cruz MD Lymphocytes (Bld) [#/Vol] 1.62 10*3/uL Normal 1.10-3.70 [facility] Comment on above: Performed By: #### C DP #### [address] [address] Fingerprint Technician: Arpit Cruz MD Lymphocytes/100 WBC (Bld) 20 % Low 24-43 [facility] Comment on above: Performed By: #### C DP #### [address] [address] Fingerprint Technician: Arpit Cruz MD MCH (RBC) [Entitic mass] 31.1 pg Normal 25.2-33.5 [facility] Comment on above: Performed By: #### C DP #### [address] [address] Fingerprint Technician: Arpit Cruz MD MCHC (RBC) [Mass/Vol] 31.8 g/dL Normal 28.4-34.8 [facility] Comment on above: Performed By: #### C DP #### [address] [address] Fingerprint Technician: Arpit Cruz MD MCV (RBC) [Entitic vol] 97.6 fL Normal 82.6-102.9 [facility] Comment on above: Performed By: #### C DP #### [address] [address] Fingerprint Technician: Arpit Cruz MD Monocytes (Bld) [#/Vol] 0.80 10*3/uL Normal 0.10-1.20 [facility] Comment on above: Performed By: #### C DP #### [address] [address] Fingerprint Technician: Arpit Cruz MD Monocytes/100 WBC (Bld) 10 % Normal 3-12 [facility] Comment on above: Performed By: #### C DP #### [address] [address] Fingerprint Technician: Arpit Cruz MD Neutrophil (Seg) 67 % High 36-65 [facility] Comment on above: Performed By: #### C DP #### [address] [address] Fingerprint Technician: Arpit Cruz MD NRBC Automated 0.0 per 100 WBC Normal 0.0 [facility] Comment on above: Performed By: #### C DP #### [address] [address] Fingerprint Technician: Arpit Cruz MD Platelet mean volume (Bld) [Entitic vol] 10.0 fL Normal 8.1-13.5 [facility] Comment on above: Performed By: #### C DP #### [address] [address] Fingerprint Technician: Arpit Cruz MD Platelets (Bld) [#/Vol] 247 10*3/uL Normal 138-453 [facility] Comment on above: Performed By: #### C DP #### [address] [address] Fingerprint Technician: Arpit Cruz MD RBC (Bld) [#/Vol] 4.25 10*6/uL Normal 3.95-5.11 [facility] Comment on above: Performed By: #### C DP #### [facility] [address] [place], [place] [id number] Fingerprint Technician: Arpit Cruz MD WBC (Bld) [#/Vol] 8.2 10*3/uL Normal 3.5-11.3 [facility] Comment on above: Performed By: #### C DP #### [facility] [address] [place] [address] Fingerprint Technician: Arpit Cruz MD XR Knee - left 3 [facility] Result: April 15, 2024 x-rays AP weight-bearing bilateral knees lateral and sunrise of the left knee demonstrate medial compartment narrowing bilateral knees left slightly more advanced than the right. Subchondral sclerosis is noted. Subchondral sclerosis is noted in the patellofemoral joint. No fractures detected. Impression: Osteoarthritis bilateral knees Echo Velazquez D.O. [employer] XR Knee - left 3 ViewsOrdere d By: Cullen Velazquez on 04-16-2024 [employer] Work Phone: No Panel Informationon 04-15 Romelia Mcclain NP 04/17/2024 6:43 AM L Inj/Asp: L knee on 04/15/2024 11:43 AM Indications: pain Details: 20 G needle, anterolateral approach Medications: 40 mg methylPREDNISolone acetate 40 MG/ML Procedure, treatment alternatives, risks and benefits explained, specific risks discussed. Consent was given by the patient. ID Watchdog e XR Knee - left 3 [facility] Study observation (narrative) [employer] Pathology Request for Lab Co rpon 03-20-2024 Pathology Request for Lab Dorothy Normal The Count Includes [facility] Comment on above: Order Comment: PATHO LOGY GI SPECIMEN Result Comment: See report. Scanned copy available in EMR. PERFORMED BY: [facility] [place] [address] PATHOLOGIST SENIOR FIELD SERVICE ENGINEER HELENE LEON M.D. Performed By: #### P ATH TO [facility] #### [facility] [address] [place] [address] [facility] Guevara 10-02-2023 L Specimen: [id number] Received: 10/02/23 Status: OJ Brice Num: [id number] Spec Type: Surgical Subm Dr: Sunny Torres MD Tissues: A GASTRIC FOR HP (GASTRIC BX R/O H.PYLORI) B Colon Biopsy (RANDOM COLON BX R/O MICROSCO) Procedures: HE/4, Gross/Micro L4/2, H PYLORI Age/ Patient Sex Location Account Attending Physician Danae Murdocke 78/F [id number] Sunny Torres MD SPEC NUM: [id number] RECD: 10/02/23 STATUS: OJ BRICE NUM: [id number] TEO: 10/02/[address]: Sunny Torres MD ENTERED: 10/02/[address] [facility] [address]: SPEC TYPE: Surgical DEPT: S [...] date of and random colon ---- Specimen: [id number] Received: 10/02/23 Status: OJ Brice Num: [id number] Spec Type: Surgical Subm Dr: Sunny Torres MD Tissues: A GASTRIC FOR HP (GASTRIC BX R/O H.PYLORI) B Colon Biopsy (RANDOM COLON BX R/O MICROSCO) Procedures: HE/4, Gross/Micro L4/2, H PYLORI ---- Patient: Arianne Murdock [id number] (Continued) ---- Specimen: [id number] Received: 10/02/23 (Continued) Gross Description (Continued) Signed (signature on file) Patito Grimm MD 10/03/23 1430 ---- Specimen: [id number] Received: 10/02/23 Status: OJ Brice Num: [id number] Spec Type: Surgical Subm Dr: Sunny Torres MD Tissues: A GASTRIC FOR HP (GASTRIC BX R/O H.PYLORI) B Colon Biopsy (RANDOM COLON BX R/O MICROSCO) Procedures: HE/4, Gross/Micro L4/2, H PYLORI ---- Patient: Arianne Murdock [id number] (Continued) ---- Specimen: [id number] Received: 10/02/23 (Continued) Gross Description (Continued) biopsy are 2 galvan translucent soft tissue fragments, 0.3 and 0.6 cm in greatest dimensions. Entirely submitted in one cassette labeled B1. CPT Codes [id number] ---- ---- Specimen: [id number] Received: 10/02/23 Status: OJ Brice Num: [id number] Spec Type: Surgical Subm Dr: Sunny Torres MD Tissues: A GASTRIC FOR HP (GASTRIC BX R/O H.PYLORI) B Colon Biopsy (RANDOM COLON BX R/O MICROSCO) Procedures: HE/4, Gross/Micro L4/2, H PYLORI ---- Patient: Arianne Murdock [id number] (Continued) ---- Signed (signature on file) Patito Grimm MD 10/03/23 1430 Normal The Count Includes [facility] CALCIUMon 10-03-2022 Calcium [Mass/Vol] 8.9 mg/dL Normal 8.5-10.1 [facility] Comment on above: Performed By: #### VALERIO MADRIGAL #### [facility] [address] [place] [address] Dr. Dang Grimm CREATININEon 10-03-2022 Creatinine [Mass/Vol] 1.03 mg/dL Critically high 0.55-1.02 [facility] Comment on above: Performed By: #### VALERIO MADRIGAL #### [facility] [address] [place] [address] Dr. Dang Grimm EGFR-AF CITIZEN OF [place] >60 Normal >=60 [facility] Comment on above: Performed By: #### C VALERIO ADAMS #### [facility] [address] [place], [place] [address] Dr. Dang Grimm EGFR-NON AF CITIZEN OF [place] 52 mL/min/1.73m2 Critically low >=60 [facility] Comment on above: Performed By: #### C VALERIO ADAMS #### [facility] [address] [place], [place] [address] Dr. Dang Grimm Covid-19 PCR ([facility])on SARS-CoV-2 (COVID-19) RNA GENARO+probe Ql (Unsp [...] for this test is supported by the Evs Manager of Health and Human Service's (HHS's) [...] SARS-CoV-2. Performed By: #### C VDTBH #### [facility] [address] [place], [place] [address] Dr. Dang Grimm ANAon 04-20-2022 OCTAVIA PATTERN SPECKLED Normal [facility] [place] [facility] Comment on above: Result Comment: [...] authority. Performed By: #### 1 0196 #### [facility] [address] OCTAVIA SCREEN 1:40 Normal <1:40,1:40 The [facility] Comment on above: Result Comment: Test performed using MELCHOR IFA OCTAVIA Hep-2 Test, a pre-standardized assay designed for the qualitative and semi-quantitative detection of antinuclear antibodies. Performed By: #### 1 0196 #### [facility] [address] C REACTIVE PROTEINon 022 CRP [Mass/Vol] 2.5 mg/L Normal 0.0-7.0 The [facility] Comment on above: Performed By: #### 6 1405, 540[address] #### [facility] [address] CBC COMPLETE BLOOD COUNTon 0 04-20-2022 Erythrocyte distribution width (RBC) [Ratio] 12.4 % Normal 11.5-15.0 [facility] Comment on above: Performed By: #### 5 6506, 70726 #### [facility] [address] Hematocrit (Bld) [Volume fraction] 41.6 % Normal 36.0-45.0 [facility] Comment on above: Performed By: #### 5 6506, 48751 #### [facility] [address] [facility]. [address] Hemoglobin (Bld) [Mass/Vol] 13.7 g/dL Normal 12.0-15.0 [facility] Comment on above: Performed By: #### 5 6506, 55304 #### [facility] [address] [place] [address], [facility] MCH (RBC) [Entitic mass] 31.4 pg Normal 27.0-33.0 [facility] Comment on above: Performed By: #### 5 6506, 80952 #### [facility] [address] [place] [address], [facility] MCHC (RBC) [Mass/Vol] 32.9 g/dL Normal 32.0-35.0 [facility] Comment on above: Performed By: #### 5 650, 98227 #### [facility] [address] [place] [address], [facility] MCV (RBC) [Entitic vol] 95.2 fL Normal 82.0-98.0 [facility] Comment on above: Performed By: #### 5 6505, 36644 #### [facility] [address] Nucleated RBC/100 WBC (Bld) [Ratio] 0 % Normal 0-0 [facility] Comment on above: Performed By: #### 5 6505, 20029 #### [facility] [address] [place] [address], [facility] PLAT CNT 248 10*3/uL Normal 150-400 [facility] [place] [facility] Comment on above: Performed By: #### 5 6505, 35076 #### [facility] [address] [place] [address], [facility] RBC (Bld) [#/Vol] 4.37 10*6/uL Normal 3.80-5.00 [facility] Comment on above: Performed By: #### 5 6506, 40821 #### [facility] [address] [place] [address], [facility] WBC (Bld) [#/Vol] 5.54 10*3/uL Normal 4.00-10.60 [facility] Comment on above: Performed By: #### 5 650, 414[address] #### [address] [place], [place] [address] CERVICAL SPINE 4 OR 5 VIEWSo n 04-20-2022 CERVICAL SPINE 4 OR 5 VIEWS [facility] Department of Radiology [address] [place], [place] [address] [address] ======== Patient Name: ARIANNE MURDOCK : 1945 Sex: F Age: Race: White Pt. Location: [facility] Patient Status: O Ordered Date: 04/20/2022 10:50:00 AM Completed Date: 04/20/2022 11:42 AM Requesting Provider: MICHAEL HAHN Attending Provider: ARIADNA NOLAN Report Copy To: Signs & Symptoms: M54.2 Cervicalgia I10 History: [place] Comments: Views (X-RAY, CERVICAL SPINE): AP, Lateral, [...] C3 Electronically signed: Christian Upton. Transcribed by: [email or web address], User Resident: Electronically Signed by: CHRISTIAN UPTON @ 04/20/2022 02:33 PM Normal [facility] Comment on above: Order Comment: Views (X-RAY, CERVICAL SPINE): AP, Lateral, Odontoid, Flexion, Extension COMP METABOLIC PANELon 04-20 Albumin [Mass/Vol] 4.1 g/dL Normal 3.5-5.7 [facility] [place] [facility] Comment on above: Performed By: #### 3 5515, 74693, 57571 #### [facility] [address] [place] [address], [place] ALKALINE PHOSPH 63 IU/L Normal 34-104 The [facility] Comment on above: Performed By: #### 3 5515, 74832, 30602 #### [facility] [address] [place] [address], [place] ALT [Catalytic activity/Vol] 15 U/L Normal 7-52 The [facility] Comment on above: Performed By: #### 3 5515, 16658, 27469 #### [facility] [address] [place] [address], [place] AST [Catalytic activity/Vol] 22 U/L Normal 13-39 The [facility] Comment on above: Performed By: #### 3 5515, 61043, 96892 #### [facility] [address] [place] [address], [place] Bilirubin [Mass/Vol] 0.5 mg/dL Normal 0.3-1.0 The [facility] Comment on above: Performed By: #### 3 5515, 47994, 75114 #### [facility] [address] [place] [address], [place] Calcium [Mass/Vol] 10.2 mg/dL Normal 8.6-10.3 [facility] [place] [facility] Comment on above: Performed By: #### 3 5515, 29886, 21531 #### [facility] [address] [place] [address], [place] Chloride [Moles/Vol] 105 mmol/L Normal 98-107 The [facility] Comment on above: Performed By: #### 3 5515, 80473, 20443 #### [facility] [address] [place] [address], [place] CO2 [Moles/Vol] 25 mmol/L Normal 21-31 The [facility] Comment on above: Performed By: #### 3 5515, 16981, 94330 #### [facility] [address] [place] [address], [place] Creatinine [Mass/Vol] 0.95 mg/dL Normal 0.60-1.20 The [facility] Comment on above: Performed By: #### 3 5515, 68602, 06834 #### [facility] [address] [place] [address], [place] GFR/1.73 sq M.predicted among non-blacks MDRD (S/P/Bld) [Vol rate/Area] mL/min/{1.73_m2} Normal >60 The [facility] Comment on above: Result Comment: The [facility]'s estimated glomerular filtration rate (eGFR) will [...] of individuals. Performed By: #### 3 5515, 38547, 77436 #### [facility] [address] [place] [address], [place] Glucose [Mass/Vol] 88 mg/dL Normal 70-100 The [facility] Comment on above: Performed By: #### 3 5515, 79750, 58401 #### [facility] [address] [place] [id number], [facility] Potassium [Moles/Vol] 4.5 mmol/L Normal 3.5-5.1 The [facility] Comment on above: Performed By: #### 3 5515, 00871, 05244 #### [facility] [address] [place] [id number], [facility] Protein [Mass/Vol] 6.8 g/dL Normal 6.0-8.3 The [facility] Comment on above: Performed By: #### 3 5515, 96149, 22262 #### [facility] [address] [place] [id number], [facility] Sodium [Moles/Vol] 138 mmol/L Normal 136-145 The [facility] Comment on above: Performed By: #### 3 5515, 32950, 94026 #### [facility] [address] [place] [address], [facility] Urea nitrogen [Mass/Vol] 29 mg/dL High 7-25 The [facility] Comment on above: Performed By: #### 3 5515, 85192, 20110 #### [facility] [address] [place] [id number] 04-20-2022 CYCLIC CIT PEP 2 Units Normal 0-19 The [facility] Comment on above: Result Comment: [...] be monitored and testing repeated. Performed By: [employer] [address] [place] [address] [employer] Supervisor: Brett Tamez MD, PhD FERRITINon 04-20-2022 Ferritin [Mass/Vol] 43 ng/mL Normal 11-307 The [facility] Comment on above: Performed By: #### 3 5515, 69199, 06180 #### [address] HAND LEFT 3 VWSon 04-20-2022 HAND LEFT 3 S [facility] Department of Radiology [address] [place] [id number] ======== Patient Name: ARIANNE MURDOCK : 1945 Sex: F Age: Race: White Pt. Location: [facility] Patient Status: O Ordered Date: 04/20/2022 10:50:00 AM Completed Date: 04/20/2022 11:42 AM Requesting Provider: MICHAEL HAHN Attending Provider: ARIADNA NOLAN Report Copy To: Signs & Symptoms: M79.641 Pain in right hand I10 History: [place] Comments: Evaluate Exam: HAND LEFT 3 VWS [...] report. Electronically signed: Chelita Lazcano. Transcribed by: [email or web address], User Resident: NIRMALA MONGE Electronically Signed by: CHELITA LAZCANO @ 04/20/2022 01:29 PM I personally read this/these film(s) with this resident Normal [facility] Comment on above: Order Comment: Evalu ate HAND RIGHT 3 [facility] 2 HAND RIGHT 3 [facility] [address] [place] [id number] ======== Patient Name: ARIANNE MURDOCK : 1945 Sex: F Age: Race: White Pt. Location: [facility] Patient Status: O Ordered Date: 04/20/2022 10:50:00 AM Completed Date: 04/20/2022 11:42 AM Requesting Provider: MICHAEL HAHN Attending Provider: ARIADNA NOLAN Report Copy To: Signs & Symptoms: M79.641 Pain in right hand I10 History: [place] Comments: Evaluate Exam: HAND RIGHT 3 VWS [...] the findings in this report. Electronically signed: Cheliat Lazcano. Transcribed by: [email or web address], User Resident: NIRMALA MONGE Electronically Signed by: CHELITA LAZCANO @ 04/20/2022 01:43 PM I personally read this/these film(s) with this resident Normal [facility] Comment on above: Order Comment: Evalu ate RHEUMATOID FACTOR SERUMon RA <20 Normal 0-20 [facility] Comment on above: Performed By: #### 6 1405, [id number] #### [facility] [address] SEDIMENTATION RATEon 022 SED RATE 38 mm/hr High 0-20 [facility] Comment on above: Performed By: #### 5 6506, [id number] ####[facility] [place] [address], [facility] TIBC- INCLUDES IRONon 2021 FE SATURATION 30 % Normal 20-50 [facility] Comment on above: Performed By: #### 3 5515, 93858, [id number] #### [facility] [address] [place] [address], [facility] Iron [Mass/Vol] 115 ug/dL Normal 50-212 [facility] Comment on above: Performed By: #### 3 5515, [id number], [id number] #### [facility] [address] [place] [address], [facility] TIBC 378 mcg/dL Normal 250-450 [facility] Comment on above: Performed By: #### 3 5515, 17216, 45511 #### [facility] [address] [place] [address], [facility] UIBC 263 mcg/dL Normal 155-355 [facility] Comment on above: Performed By: #### 3 5515, 81118, 37550 #### [facility] [address] [place] [address], [facility] CALCIUMon 04-09-2022 Calcium [Mass/Vol] 9.6 mg/dL Normal 8.5-10.1 [facility] Comment on above: Performed By: #### Bhumika AADMS [place] #### [facility] [address] [address] [address] Dang Grimm CREATININEon 04-09-2022 Creatinine [Mass/Vol] 1.07 mg/dL Critically high 0.55-1.02 [facility] Comment on above: Performed By: #### Bhumika ADAMS [place] #### [facility] [address] [address] [address] Dang Grimm EGFR-AF CITIZEN OF [place] >60 Normal >=60 [facility] Comment on above: Performed By: #### VALERIO MADRIGAL #### [facility] [address] [place], [place] [address] Dr. Dang Grimm EGFR-NON AF CITIZEN OF [place] 50 mL/min/1.73m2 Critically low >=60 [facility] Comment on above: Performed By: #### VALERIO MADRIGAL #### [facility] [address] [place], [place] [address] Dr. Dang Grimm Vital Signs Date Time Vital Sign Value Performing Clinician Facility 06-02-2024 14:33-0400 Body height 154.9 cm Stvz Schedule [facility] 06-02-2024 14:33-0400 Body mass index (BMI) [Ratio] 24 kg/m2 Stvz Schedule [facility] 06-02-2024 14:33-0400 Body weight 57.61 kg Stvz Schedule [facility] 06-02-2024 14:33-0400 Diastolic blood pressure 63 mm[Hg] Stvz Schedule [facility] 06-02-2024 14:33-0400 Heart rate 96 /min Stvz Schedule [facility] 06-02-2024 14:33-0400 Respiratory rate 16 /min [facility] 06-02-2024 14:33-0400 SaO2% (BldA) [Mass fraction] 97 % Stvz Schedule [facility] 06-02-2024 14:33-0400 Systolic blood pressure 132 mm[Hg] Stvz Schedule [facility] 03-20-2024 09:15-0400 Diastolic blood pressure 62 mm[Hg] MD Viky Stanford Work Phone: [facility] 03-20-2024 09:15-0400 Heart rate 72 /min MD Viky Stanford Work Phone: [facility] 03-20-2024 09:15-0400 Respiratory rate 20 /min MD Viky Stanford Work Phone: [facility] 03-20-2024 09:15-0400 SaO2% (BldA) [Mass fraction] 99 % MD Viky Stanford Work Phone: [facility] 03-20-2024 09:15-0400 Systolic blood pressure 115 mm[Hg] MD Viky Stanford Work Phone: [facility] 03-20-2024 07:18-0400 Body height 156.84 cm MD Viky Stanford Work Phone: [facility] 03-20-2024 07:18-0400 Body weight 55.33 kg MD Viky Stanford Work Phone: [facility] 03-16-2024 09:04-0400 Body height 156.84 cm MD Viky Stanford Work Phone: [facility] 03-16-2024 09:04-0400 Body mass index (BMI) [Ratio] 22.8 kg/m2 MD Viky Stanford Work Phone: [facility] 03-16-2024 09:04-0400 Body weight 56.24 kg MD Viky Stanford Work Phone: [facility] 03-16-2024 09:04-0400 Diastolic blood pressure 72 mm[Hg] MD Viky Stanford Work Phone: [facility] 03-16-2024 09:04-0400 Heart rate 81 /min MD Viky Stanford Work Phone: [facility] 03-16-2024 09:04-0400 Systolic blood pressure 122 mm[Hg] MD Viky Stanford Work Phone: [facility] 10-02-2023 09:55-0500 Diastolic blood pressure 67 mm[Hg] MD Viky Stanford Work Phone: [facility] 10-02-2023 09:55-0500 Heart rate 80 /min MD Viky Stanford Work Phone: [facility] 10-02-2023 09:55-0500 Respiratory rate 16 /min MD Viky Stanford Work Phone: [facility] 10-02-2023 09:55-0500 SaO2% (BldA) [Mass fraction] 99 % MD Viky Stanford Work Phone: [facility] 10-02-2023 09:55-0500 Systolic blood pressure 108 mm[Hg] MD Viky Stanford Work Phone: [facility] 10-02-2023 07:07-0500 Body height 160.02 cm MD Viky Stanford Work Phone: [facility] 10-02-2023 07:07-0500 Body weight 56.69 kg MD Viky Stanford Work Phone: [facility] 08-30-2023 10:30-0500 Body height 157.48 cm Viky Stanford Other [facility] 08-30-2023 10:30-0500 Body mass index (BMI) [Ratio] 21.73 kg/m2 Viky Stanford Other [facility] Other 08-30-2023 10:30-0500 Body weight 53.89 kg Viky Stanford Other [facility] Other 08-30-2023 10:30-0500 Body weight 53.88 kg MD Viky Stanford Work Phone: [facility] 08-30-2023 10:30-0500 Diastolic blood pressure 74 mm[Hg] Viky Stanford Other [facility] 08-30-2023 10:30-0500 Systolic blood pressure 122 mm[Hg] Viky Stanford Other [facility] 08-21-2023 13:45-0500 Body height 157.48 cm Imad Asaad Other [facility] 08-21-2023 13:45-0500 Body mass index (BMI) [Ratio] 21.58 kg/m2 Imad Asaad Other [facility] Other 08-21-2023 13:45-0500 Body weight 53.52 kg Sunny Torres Other [facility] 07-15-2023 11:30-0500 Body height 157.48 cm Viky Stanford Other [facility] 07-15-2023 11:30-0500 Body mass index (BMI) [Ratio] 21.73 kg/m2 Viky Stanford Other [facility] Other 07-15-2023 11:30-0500 Body weight 53.89 kg Viky Stanford Other [facility] Other 07-15-2023 11:30-0500 Body weight 53.88 kg MD Viky Stanford Work Phone: [facility] 07-15-2023 11:30-0500 Diastolic blood pressure 78 mm[Hg] Viky Stanford Other [facility] 07-15-2023 11:30-0500 Systolic blood pressure 148 mm[Hg] Viky Stanford Other [facility] 07-06-2023 09:20-0500 Body height 157.48 cm MD Viky Stanford Work Phone: [facility] 07-06-2023 09:20-0500 Body weight 55.51 kg MD Viky Stanford Work Phone: [facility] Encounters Encounter Date Encounter Type Care Provider Facility Start: 07-06-2024 End: 07-06-2024 ambulatory Ara Maier MD Facility:[facility] Start: 06-26-2024 End: 06-28-2024 ambulatory ECHO RAMEYENSHIP [facility] Start: 06-26-2024 End: 06-28-2024 Subsequent hospital visit by physician Echo Ham DO Work Phone: [facility] CT Scan Comment on above: Sacroiliitis (HCC) Start: 06-09-2024 End: 06-09-2024 ambulatory ECHO Mir [facility] Start: 06-02-2024 End: 06-06-2024 ambulatory ECHO [facility] Start: 06-02-2024 Encounter for other preprocedural examination ECHO [facility] Start: 06-02-2024 End: 06-06-2024 Patient encounter status Stvz Schedule [facility] Start: 06-02-2024 End: 06-06-2024 Subsequent hospital visit by physician Hoa Dias Pat Schedule HOA Dias Pre-Admit Testing Comment on above: Pre-op testing (Prim edil Dx) Start: 04-29-2024 End: 04-29-2024 [employer] Romelia Mcclain DIFFUSION OPERATOR Work Phone: [facility] Start: 04-29-2024 End: 04-29-2024 [employer] Romelia Keith Apling DIFFUSION OPERATOR Work Phone: [facility] Start: 04-29-2024 End: 04-29-2024 Office outpatient visit 10 minutes Romelia Mcclain DIFFUSION OPERATOR Work Phone: [facility] Comment on above: Left knee pain, unsp ecified chronicity (Primary Dx); Arthritis of left knee Start: 04-29-2024 End: 04-29-2024 ambulatory ROMELIA JANEING Not Available Start: 04-15-2024 End: 04-15-2024 Bamboo [employer] Romelia Keith Apling DIFFUSION OPERATOR Work Phone: [facility] Start: 04-15-2024 End: 04-15-2024 [employer] Romelia Keith Apling DIFFUSION OPERATOR Work Phone: [facility] Start: 04-15-2024 End: 04-15-2024 Office outpatient visit 25 minutes Romelia Mcclain DIFFUSION OPERATOR Work Phone: [facility] Comment on above: Left knee pain, unsp ecified chronicity (Primary Dx); Arthritis of left knee Start: 04-15-2024 End: 04-15-2024 ambulatory ROMELIA B APLING Not Available Start: 03-20-2024 Non-patient / Non-visit MD Viky Stanford Work Phone: Count Includes [facility] Physician [facility] G[facility] Work Phone: Start: 03-20-2024 End: 03-20-2024 Admission to same day surgery center MD Viky Stanford Work Phone: [facility] Work Phone: Start: 03-20-2024 End: 03-20-2024 ambulatory MD Viky Stanford Work Phone: [facility] Work Phone: Start: 03-18-2024 End: 03-18-2024 ambulatory ROMELIA B APLING Not Available Start: 03-17-2024 Preoperative state MD Viky bliss Work Phone: [facility] Start: 03-16-2024 End: 03-16-2024 ambulatory ROMELIA B APLING Not Available Start: 03-16-2024 End: 03-16-2024 Patient encounter procedure MD Viky Stanford Work Phone: Count Includes [facility] Physician [facility] Work Phone: Start: 10-14-2023 End: 10-14-2023 ambulatory Ara Maier MD Facility:[facility] Start: 10-04-2023 End: 10-04-2023 ambulatory Imad Asaad Other [facility] Other Start: 10-04-2023 Telephone encounter Imad Asaad [facility] Start: 10-02-2023 Non-patient / Non-visit MD Viky Stanford Work Phone: Count Includes [facility] Physician [facility] Gastroenterology Work Phone: Start: 10-02-2023 End: 10-02-2023 Admission to same day surgery center MD Viky Stanford Work Phone: [facility] Work Phone: Start: 10-02-2023 End: 10-02-2023 ambulatory MD Viky Stanford Work Phone: [facility] Work Phone: Start: 09-23-2023 End: 09-23-2023 ambulatory Viky Stanford Other [facility] Other Start: 09-23-2023 Telephone encounter Viky Stanford [facility] Start: 09-09-2023 End: 09-09-2023 ambulatory ROMELIA Keith APLING Not Available Start: 09-04-2023 End: 09-04-2023 ambulatory ROMELIA Keith APLING Not Available Start: 09-03-2023 End: 09-03-2023 ambulatory Viky Stanford Other [facility] Other Start: 09-03-2023 Telephone encounter Viky Stanford [facility] Start: 08-30-2023 End: 08-30-2023 ambulatory Viky Stanford Other [employer] Other Start: 08-30-2023 Office outpatient visit 15 minutes Viky Stanford [facility] Start: 08-30-2023 End: 08-30-2023 Patient encounter procedure MD Viky Stanford Work Phone: Count Includes [facility] Physician Group- Start: 08-23-2023 End: 08-23-2023 ambulatory Viky Stanford Other [facility] Other Start: 08-23-2023 Telephone encounter Viky Stanford [facility] Start: 08-21-2023 End: 08-21-2023 ambulatory Imad Asaad Other [facility] Other Start: 08-21-2023 Office outpatient ne w 45 minutes Imad Asaad [facility] Start: 08-21-2023 End: 08-21-2023 Patient encounter procedure MD Viky Stanford Work Phone: [facility] Gastroenterology Work Phone: Start: 07-15-2023 End: 07-15-2023 ambulatory Viky Stanford Other [facility] Other Start: 07-15-2023 Office outpatient visit 15 minutes Viky Stanford [facility] Start: 07-15-2023 Telephone encounter Viky Stanford [facility] Start: 07-15-2023 End: 07-15-2023 Patient encounter procedure MD Viky Stanford Work Phone: Count Includes [facility] Physician [facility] Work Phone: Start: 07-06-2023 End: 07-06-2023 Patient encounter procedure MD Viky Stanford Work Phone: [facility] Luis Alfredo Work [...] preprocedural laboratory examination DR MASSIMO MATTHEWS . [facility] Start: 07-24-2022 End: 07-24-[address] [...] 04-20-2022 End: 04-21-2022 ambulatory ARIADNA S OVIDIO Facility:[facility] Start: 04-09-2022 End: 04-10-[address] VIKY STANFORD Facility: Start: 02-27-2022 End: 02-28-2022 ambulatory DEFAULT PHYSICIAN Facility:[facility] Start: 02-22-2022 End: 02-23-[address] MASSIMO MATTHEWS . Facility: Start: 12-06-2021 ambulatory MICHELE SALDAÑA . Facility:[facility] Start: 11-30-2021 End: 12-01-[address] MASSIMO MATTHEWS . Facility: Start: 10-25-2020 Pre-procedure evaluation check Viky Stanford Other [employer] Other Procedures Date Procedure Procedure Detail Performing Clinician Start: 06-26-2024 Ct pelvis w/o contrast material Echo Ham DO Work Phone: Start: 06-02-2024 Blood count complete auto&auto difrntl wbc Ling Rojas MD Work Phone: Start: 06-02-2024 Ecg routine ecg w/least 12 lds w/i&r Ling Rojas MD Work Phone: Start: 04-15-2024 Arthrocentesis aspir&/inj major jt/bursa w/o us Romelia B Sarahi DIFFUSION OPERATOR Work Phone: Start: 04-15-2024 Radiologic examination knee 3 views Danae a B Sarahi DIFFUSION OPERATOR Work Phone: Start: 03-20-2024 Colonoscopy MD Viky Stanford Work Phone: Start: 10-02-2023 Esophagogastroduodenoscopy MD Viky fox Work Phone: Start: 07-10-2017 Screening mammography Viky Stanford Other Start: 07-19-2016 General examination of patient Viky padilla Other Plan of Treatment Date Care Activity Detail Author Start: 04-23-2032 DTaP/Tdap/Td vaccine (2 - Td or Tdap) DTaP/Tdap/Td vaccine (2 - Td or Tdap) [facility] Start: 06-09-2024 End: 06-09-2024 Admission to same day surgery center 06/09/2024 7:30 AM EDT - 06/09/2024 9:30 [place] [address] [place] [address] Echo Ham, DO [address] [place], [place] [id number] RIGHT MINIMALLY INVASIVE SURGERY SACROILIAC JOINT FUSION POSTERIOR WITH SI BONE [facility] [place] Comment on above: RIGHT MINIMALLY INVA SIVE SURGERY SACROILIAC JOINT FUSION POSTERIOR WITH SI BONE Start: 06-09-2024 End: 06-09-2024 Anesthesia consultation 06/09/2024 7:30 [place] [address] [place] [address] Ricco Foote MD [address] [facility] [address] [place] [address] [facility] [place] Start: 06-09-2024 End: 06-09-2024 Arthrodesis sacroiliac joint percutaneous SACROILIAC JOINT FUSION POSTERIOR Chronic right SI joint pain 06/09/2024 7:30 AM [facility] Start: 06-09-2024 Subsequent hospital visit by physician 06/09/2024 7:30 AM [place] [address] [place] [address] Echo Ham, DO [address] [place], [place] [id number] [facility] [place] Start: 05-27-2024 Annual Wellness Visi t (Medicare) Annual Wellness Visit (Medicare) [facility] Start: 04-29-2024 End: 04-29-2024 Patient encounter procedure [facility] Comment on above: Left knee pain, unsp ecified chronicity (Primary Dx); Arthritis of left knee Start: 04-15-2024 End: 04-15-2024 Patient encounter procedure 04/15/2024 11:15 AM EDT Office Visit [facility] [address] [place] [address] Romelia Mcclain NP [address] [place] [address] Left knee pain, unspecified chronicity (Primary Dx) [facility] Comment on above: Left knee pain, unsp ecified chronicity (Primary Dx) Start: 04-12-2024 COVID-19 Vaccine ( season) COVID-19 Vaccine ( season) [facility] Start: 04-12-2024 Influenza vaccination Influenza Vacc ine (#1) [facility] Start: 03-20-2024 [facility] Start: 10-02-2023 [facility] Start: 2001 Screening for osteoporosis DEXA (modify frequency per FRAX score) [facility] Start: 1964 Hepatitis C screening Hepatitis C sc reen [facility] Start: 1958 Depression Screen Depression Screen [facility] Patient Education Hemorrhoids (D C) Know your Meds [facility] Work Phone: Immunizations Immunization Date Immunization Notes Care Provider Fa cility 04-16-2023 influenza virus vaccine, unspecified formulation Romelia Mcclain NP Work Phone: [facility] 05-17-2022 zoster vaccine, live Viky Stanford Other [facility] 04-23-2022 influenza virus vaccine, split virus (incl. purified surface antigen) Viky Stanford Other [facility] Other 04-23-2022 influenza virus vaccine, unspecified formulation MD Viky Stanford Work Phone: [facility] 04-23-2022 pneumococcal polysaccharide vaccine, 23 valent Viky Stanford Other [facility] 04-23-2022 tetanus toxoid, adsorbed Viky Stanford Other [facility] 05-25-2021 influenza virus vaccine, split virus (incl. purified surface antigen) Viky Stanford Other [facility] Other 05-25-2021 influenza virus vaccine, unspecified formulation MD Viky Stanford Work Phone: [facility] 10-18-2020 COVID-19 Vaccine Moderna - Documentation Purposes Only Viky Stanford Other [facility] 09-19-2020 COVID-19 Vaccine Moderna - Documentation Purposes Only Viky Stanford Other [facility] 04-16-2020 influenza virus vaccine, split virus (incl. purified surface antigen) Viky Stanford Other [facility] Other 04-16-2020 influenza virus vaccine, unspecified formulation MD Viky Stanford Work Phone: [facility] 05-12-2019 influenza virus vaccine, split virus (incl. purified surface antigen) Viky Stanford Other [facility] Other 05-12-2019 influenza virus vaccine, unspecified formulation MD Viky tSanford Work Phone: [facility] 04-18-2018 influenza virus vaccine, split virus (incl. purified surface antigen) Viky Stanford Other [facility] Other 04-18-2018 influenza virus vaccine, unspecified formulation MD Viky Stanford Work Phone: [facility] 07-10-2017 pneumococcal conjuga te vaccine, 13 valent Viky Stanford Other [facility] 04-18-2017 influenza virus vaccine, split virus (incl. purified surface antigen) Viky Stanford Other [facility] Other 04-18-2017 influenza virus vaccine, unspecified formulation MD Viky Stanford Work Phone: [facility] 05-09-2016 influenza virus vaccine, split virus (incl. purified surface antigen) Viky Stanford Other [facility] Other 05-09-2016 influenza virus vaccine, unspecified formulation MD Viky Stanford Work Phone: [facility] 05-27-2013 tetanus and diphther ia toxoids, adsorbed, preservative free, for adult use (5 Lf of tetanus toxoid and 2 Lf of diphtheria toxoid) Viky Stanford Other [facility] 12-24-2011 pneumococcal polysaccharide vaccine, 23 valent Viky Stanford Other [facility] Payers Date Payer Category Payer Self-pay 2022 Unknown 2011 Medicare 1959 Medicare [id number] 1959 Unknown [id number] 1945 Unknown [id number] 2.16.8 40.1.493546.3.579.2.647 1945 Unknown [id number] 2.16.8 40.1.336633.3.579.2.647 1945 Unknown [id number] 2.16.84 0.1.174148.3.579.2.593 1945 Unknown [id number] 2.16.84 0.1.273175.3.579.2.593 1945 Unknown [id number] 2.16.84 0.1.874996.3.579.2.593 1945 Unknown [id number] 2.16.84 0.1.224655.3.579.2.593 1945 Unknown [id number] 2.16.84 0.1.940250.3.579.2.593 1945 Unknown [id number] 2.16.84 0.1.980101.3.579.2.593 1945 Unknown [id number] 2.16.84 0.1.524197.3.579.2.593 1945 Unknown [id number] 2.16.84 0.1.430694.3.579.2.593 1945 Unknown [id number] 2.16.84 0.1.254525.3.579.2.593 1945 Unknown [id number] 2.16.84 0.1.474741.3.579.2.593 1945 Unknown [id number] 2.16.84 0.1.473392.3.579.2.593 1945 Unknown [id number] 2.16.84 0.1.173554.3.579.2.593 1945 Unknown [id number] 2.16.84 0.1.001001.3.579.2.593 1945 Unknown [id number] 2.16.84 0.1.126941.3.579.2.593 1945 Unknown [id number] 2.16.84 0.1.538248.3.579.2.1259 1945 Unknown [id number] 2.16.84 0.1.589429.3.579.2.1259 1945 Unknown [id number] 2.16.84 0.1.636742.3.579.2.1259 1945 Unknown [id number] 2.16.84 0.1.632752.3.579.2.1259 1945 Unknown [id number] 2.16.84 0.1.554603.3.579.2.1259 1945 Unknown [id number] 2.16.84 0.1.203368.3.579.2.1259 1945 Unknown [id number] 2.16.84 0.1.621475.3.579.2.1259 1945 Unknown [id number] 2.16. 840.1.238807.3.579.2.175 1945 Unknown [id number] 2.16. 840.1.567597.3.579.2.175 1945 Unknown [id number] 2.16.8 40.1.516570.3.579.2.176 1945 Unknown [id number] 2.16. 840.1.030646.3.579.2.196 1945 Unknown [id number] 2.16. 840.1.476652.3.579.2.196 Medicare Medicare Outpatient [id number] Unknown [id number] 2.16.8 40.1.171835.3.579.2.531 Social History Date Type Detail Facility Unknown if ever smoked [facility] Other Start: 03-16-2024 End: 06-02-2024 Sex Assigned At [employer] Other Start: 12-31-2022 End: 10-02-2023 Tobacco smoking status NHIS Never smoked tobacco (finding) [facility] Start: 1945 Sex Assigned At Female F [facility] Start: 12-31-2022 End: 06-02-2024 Tobacco use and exposure Smokeless tobacco non-user [facility] Start: 03-16-2024 End: 06-02-2024 Alcoholic beverage intake Current drinker of alcohol (finding) [facility] Start: 03-16-2024 End: 06-02-2024 History of Social function [facility] Physical abuse Denies [facility] Start: 06-02-2024 Alcohol Comment occas[facility]ally [facility] Start: 1945 Sex assigned at Not on file [facility] Start: 06-07-2024 Gender identity Identifies as female gender (finding) [facility] Start: 12-31-2022 Alcohol Comment 5-6x/year [facility] Medical Equipment Procedure Code Equipment Code Equipment Origin al Text Equipment Identifier Dates Joint Sacroiliac 11.5x50 Mm [facility] - [id number] Start: 06-09-2024 Joint Sacroiliac 11.5x35 Mm [employer] - [id number] Start: 06-09-2024 Joint Sacroiliac 11.5x35 Mm [employer] - [id number] Start: 06-09-2024 Goals Date Patient Goal [...] at the surgery center C entrance) on ___64-24-04 by ____0530-0600am . Please stop any blood [...] drive you home after your procedure. 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 documented in this encounter [facility] 03-20-2024 Procedure note [facility] 10-02-2023 Procedure note [facility] 08-30-2023 Evaluation note Encounter Date Diagnosis [...] try OTC ones in meantime. Referral placed. [facility] Other 01-10-2024 Evaluation note* Encounter Date Diagnosis [...] procedure explained to patient; patient verbalizes understanding. [facility] Other 12-04-2023 Evaluation note* Encounter Date Diagnosis [...] (ICD-10 - M81.0) Due for Dexa 08/2023 [facility] Other 02-16-2023 NoteCONSULTATION CONSULTATION DATE: 09/27/2022 HISTORY OF PRESENT ILLNESS: This is a 76-year-old female who returns to the clinic status post LES on 09/11/2022. The patient states she was afforded between 50-60% relief. Depending on her physical activity, determines her level of comfort. Activities such as standing, walking, lying, clinical reviewer hours, housework and lifting greatly aggravate her [...] in agreement with this plan.[id number] NoteCONSULTATION CONSULTATION DATE: 09/04/2022 HISTORY OF PRESENT [...] and would like to proceed.[facility] [id number] NoteCONSULTATION CONSULTATION DATE: 07/11/2022 HISTORY OF PRESENT [...] in the clinic post procedure.[facility] [id number] NoteCONSULTATION PROCEDURE DATE: 07/11/2022 PREOPERATIVE DIAGNOSIS: Bilateral [...] pain returning. 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 The patient has not seen a counselor aid in the past. REVIEW OF SYSTEMS, PAST [...] mg q.h.s. A referral to rheumatology near [place] will be sent on her behalf and I highly encouraged her to seek consultation, particularly since she has a familial history of autoimmune diseases. The patient agrees with the plan of care and will be followed up in the office in three months' time. IF Signed and Approved by: MICHELE SALDAÑA . 03/02/2022 14:16:00[facility]04-21-2022 NoteCONSULTATION Consultation Date:11/30/2021 PREOPERATIVE DIAGNOSIS: Right [...] and Approved by: MICHELE SALDAÑA . 12/06/2021 16:15:00[facility]04-21-2022 NoteCONSULTATION Consultation Date:11/30/2021 PAIN MANAGEMENT CONSULTATION [...] pain are twisting, turning, pushing, pulling, clinical reviewer hours, lifting and transitioning positions. Lying down and using heat decrease her pain. Prior to the procedure, she was in a state of acute pain and was placed on a short term course of Barry 5/325 b.i.d. p.r.n. Patient states she only [...] of care and would like to proceed. [facility] Signed and Approved by: MICHELE SALDAÑA . 12/06/2021 16:15:00[facility] noteNo InformationNort [email or web address] Other Evaluation noteNo assessment information available [facility] Work Phone: Evaluation note* Diagnosis Onset Date Resolution Status Lumbar spondylosis acute Preoperative clearance acute Situational depression acute [facility] Work Phone: evaluation note* Diagnosis Pre-op testing- Primary Preoperative examination, unspecified Chronic right SI joint pain Disorders of sacrum [facility] Diagnosis Sacroiliitis (HCC) Sacroiliitis, not elsewhere classified [facility] Diagnosis Left knee pain, unspecified chronicity- Primary Arthritis of left knee [facility] Left knee pain, unspecified chronicity- Primary Arthritis of left knee [facility] Author Sunny Torres [facility] October 02, 2023 8:54am Note Date/Time October 02, 2023 8:54am [facility] [address] [place] [address] Gastroenterology H&P Signed Patient: Arianne Murdock MR#: [id number] : 1945 Acct:[id number] Age/Sex: 78 / F Adm Date: 4 Loc: Room: Type: [facility] Attending Dr: Sunny Torres MD [...] signed by Sunny Torres MD> 10/02/23 0854 [facility] Work Phone: History and physical note Author Sunny Torres [facility] March 20, 2024 8:43am Note Date/Time March 20, 2024 8:4 3am [facility] [address] [place] [address] Gastroenterology H&P Signed Patient: Arianne Murdock MR#: [id number] : 1945 Acct:[id number] Age/Sex: 78 / F Adm Date: 4 Loc: Room: Type: [facility] Attending Dr: Sunny Torres MD [...] signed by Sunny Torres MD> 03/20/24 0843 [facility] Work Phone: History general Narrative [...] shoulder pain 1982 Hospitalization History migraines 1992 [facility] Other Hospital Discharge instructions Additional Instructions DISCHARGE [...] up in the office - Office number [phone]. [facility] Work Phone: Summary Purpose Family [...] 1 Chronic diarrhea (K5 2.9) Referral Organization [facility] Referring Provider First Name Viky Referring Provider Last Name Abdoulaye Referring Provider Specialty [facility] Referred Organization [facility] Gastroenterolo gy Referred Address [address],[address] Referred Provider Specialty Gastroentero logy Referral Priority Routine Reason *FU 09/06 R foot p ain Diagnosis 1 Pain of left great t oe (M79.675) Referral Organization [facility] Referring Provider First Name Viky Referring Provider Last Name Abdoulaye Referring Provider Specialty [facility] Referred Organization [facility] Referred Provider Odin Chong Referred Address [address] [place], [place],[address] Referred Provider Specialty Podiatry - S urgical Chiropody Referral Priority Routine General Notes Shefali Carroll 12:44:49 PM >received today, notes locked, ins attached, referral faxed Specialty Diagnoses / Procedures Referred By Contac t Referred To Contact Radiology Diagnoses Sacroiliitis (HCC) Procedures CT PELVIS WO CONTRAST Additional Contrast? None Dany, Echo Mir DO [address] [place] [address] Referral ID Status Reason Start Date Expiration Date Visits Re quested Visits Authorized [id number] Closed 06/24/2024 06/24/2025 1 1 Specialty Diagnoses / Procedures Referred By Contac t Referred To Contact Orthopaedic Surgery Diagnoses Arthritis of left knee Procedures L Inj/Asp: L knee Apling, Romelia Keith, DIFFUSION OPERATOR [address] [facility] [address] [place] [address] Referral ID Status Reason Start Date Expiration Date Visits Re quested Visits Authorized [id number] Closed 04/15/2024 10/12/2024 1 1 Chief Complaint [...] DATE CREATED AUTHOR 05/09/2022 [facility] DATE CREATED AUTHOR AUTHOR'S ORGANIZ ATION 11/17/2022 [facility] DATE CREATED AUTHOR AUTHOR'S ORGANIZ ATION 04/01/2024 [facility] DATE CREATED AUTHOR AUTHOR'S ORGANIZ ATION 05/01/2024 [facility] EPIC DATE CREATED AUTHOR AUTHOR'S ORGANIZ ATION 06/14/2024 [facility] DATE CREATED AUTHOR AUTHOR'S ORGANIZ ATION 06/30/2024 [facility] DATE CREATED AUTHOR AUTHOR'S ORGANIZ ATION 07/12/2024 [facility] REASON FOR VISIT (unrecogniz ed section and content) Specialty Diagnoses / Procedures Referred By Contac t Referred To Contact Radiology Diagnoses Sacroiliitis (HCC) Procedures CT PELVIS WO CONTRAST Additional Contrast? None Ham, Echo Mir, DO [address] [place] [address] Referral ID Status Reason Start Date Expiration Date Visits Re quested Visits Authorized [id number] Closed 06/24/2024 06/24/2025 1 1 Reason Comments [...] Provider Act cara Start: March 20, 2024 Concession Stand Attendant Relationship Specialty Start Date End Date Viky Stanford MD [address] [place] [facility] [place] [phone] PCP - General Family Medicine 06/02/24 Concession Stand Attendant Relationship Specialty Start Date End Date Viky Stanford MD [address] [place] [facility] [phone] PCP - General Family Medicine 06/02/24 Concession Stand Attendant Relationship Specialty Start Date End Date Viky Stanford MD [address] [place] [facility] [place] [address] PCP - General Family Medicine 12/31/22 Concession Stand Attendant Relationship Specialty Start Date End Date Viky Stanford MD [address] [place] [facility] [place] [address] PCP - General Family Medicine 12/31/22 Concession Stand Attendant Relationship Specialty Start Date End Date Viky Stanford MD [address] [place] [facility] [address] PCP - General Family Medicine 12/31/22 Concession Stand Attendant Relationship Specialty Start Date End Date Viky Stanford MD [address] [place] [facility] [place] [phone] PCP - General Family Medicine 12/31/22 FOR [...] BE BASED ON THE PRIMARY CLINICAL RECORDS. [facility]. provides no warranty or guarantee of the accuracy or completeness of information in this document.
--- NOTE | 2024-08-03 12:45 | PM.CN ---
Consult Note: HPI Data of Consult Patient: known to practice within the last 3 years Consult date: 08/03/24 Requesting Physician: Ara Maier MD Primary Care Provider: Patricia Nicolas MD Consult Narrative Reason for consult: low back, right leg pain Narrative: 78yof who presents for assessment. notes persistence of right low back and lower extremity pain. recent l4-5 fusion, followed by right sij fusion. notes significant, but temporary relief after lumbar tfesi. has tried norco, which provides some benefit, as well as gabapentin and lyrica, which causes significant dizziness. cc:: CC: Ara Maier MD Review of Systems ROS Status of ROS 10 or more systems reviewed and unremarkable except as noted in history and below [facility] Medical History DDD (degenerative disc disease) Postoperative pain ?G89.18 - Other acute postprocedural pain (ICD-10) Encounter for long-term opiate analgesic use ?Z79.891 - senior care (current) use of opiate analgesic (ICD-10) Sacroiliac joint pain ?M53.3 - Sacrococcygeal disorders, not elsewhere classified (ICD-10) Sacroiliac joint dysfunction of right side ?M53.3 - Sacrococcygeal disorders, not elsewhere classified (ICD-10) Muscle spasm ?M62.838 - Other muscle spasm (ICD-10) Bilateral sacroiliitis ?M46.1 - Sacroiliitis, not elsewhere classified (ICD-10) Lumbar radiculopathy ?M54.16 - Radiculopathy, lumbar region (ICD-10) Lumbar spondylosis ?M47.816 - Spondylosis without myelopathy or radiculopathy, lumbar region (ICD-10) Chronically on opiate therapy ?Z79.891 - senior care (current) use of opiate analgesic (ICD-10) Osteoporosis ?M81.0 - Age-related osteoporosis without current pathological fracture (ICD-10) Primary osteoarthritis, left ankle and foot ?M19.072 - Primary osteoarthritis, left ankle and foot (ICD-10) Bunionette of left foot ?M21.622 - Bunionette of left foot (ICD-10) Hallux valgus (acquired), left foot ?M20.12 - Hallux valgus (acquired), left foot (ICD-10) Back pain ?M54.9 - Dorsalgia, unspecified (ICD-10) Arthritis ?M19.90 - Unspecified osteoarthritis, unspecified site (ICD-10) Vertigo ?R42 - Dizziness and giddiness (ICD-10) Headache ?R51.9 - Headache, unspecified (ICD-10) Migraine ?G43.909 - Migraine, unspecified, not intractable, without status migrainosus (ICD-10) Multiple fractures ?T07.XXXA - Unspecified multiple injuries, initial encounter (ICD-10) Microscopic colitis ?K52.839 - Microscopic colitis, unspecified (ICD-10) Hiatal hernia ?K44.9 - Diaphragmatic hernia without obstruction or gangrene (ICD-10) Syncopal episodes (2019) ?R55 - Syncope and collapse (ICD-10) Osteopenia ?M85.80 - Other specified disorders of bone density and structure, unspecified site (ICD-10) Osteoarthritis ?M19.90 - Unspecified osteoarthritis, unspecified site (ICD-10) Neck pain ?M54.2 - Cervicalgia (ICD-10) Low back pain ?M54.50 - Low back pain, unspecified (ICD-10) Heartburn ?R12 - Heartburn (ICD-10) Acid reflux ?K21.9 - Gastro-esophageal reflux disease without esophagitis (ICD-10) Surgical History History of bunionectomy ?Z98.890 - Other specified postprocedural states (ICD-10) History of esophagogastroduodenoscopy (EGD) ?Z98.890 - Other specified postprocedural states (ICD-10) History of colonoscopy ?Z98.890 - Other specified postprocedural states (ICD-10) History of carpal tunnel release ?Z98.890 - Other specified postprocedural states (ICD-10) S/P cataract extraction and insertion of intraocular lens ?Z98.49 - Cataract extraction status, unspecified eye (ICD-10) ?Z96.1 - Presence of intraocular lens (ICD-10) History of repair of rotator cuff ?Z98.890 - Other specified postprocedural states (ICD-10) H/O radiofrequency ablation (RFA) of nerve of lumbar spine ?Z98.890 - Other specified postprocedural states (ICD-10) H/O shoulder surgery ?Z98.890 - Other specified postprocedural states (ICD-10) History of ear, nose, and throat (ENT) surgery ?Z98.890 - Other specified postprocedural states (ICD-10) H/O carpal tunnel repair ?Z98.890 - Other specified postprocedural states (ICD-10) H/O wrist surgery ?Z98.890 - Other specified postprocedural states (ICD-10) H/O section ?Z98.891 - History of uterine scar from previous surgery (ICD-10) Family History Other Family history of colon cancer Family history of diabetes mellitus Family history of heart disease Family history of ovarian cancer Family history of prostate cancer Family history of throat cancer Family history of uterine cancer Social History Within the past year, how often did you have a drink containing alcohol: monthly or less Smoking status: Never smoker Non-prescribed substance use: denies use Previous occupational history: retired Known occupational exposures/hazards: No Highest level of school completed/degree received: some college, no degree Little interest or pleasure in doing things: not at all Feeling down, depressed, or hopeless: not at all Meds Home Medications and Allergies Home Medications ?Medication ?Instructions ?Recorded ?Confirmed ?Type denosumab 60 mg/mL subcutaneous 60 mg subcut .[id number] 04/10/23 07/27/24 History syringe (Prolia) geriatric multivitamin-min 1 cap PO DAILY 04/10/23 07/27/24 History magnesium 200 mg tablet 400 mg PO BID 04/10/23 07/27/24 History pantoprazole 40 mg tablet,delayed 40 mg PO DAILY 07/24/23 07/27/24 History release baclofen 10 mg tablet See Rx Instructions .Route 07/15/24 07/27/24 Rx .COMPLEX #90 tabs hydrocodone 7.5 mg-acetaminophen 1 tab PO TID PRN pain #90 tabs 07/15/24 07/27/24 Rx 325 mg tablet pregabalin 75 mg capsule (Lyrica) 75 mg PO TID #90 caps 07/15/24 07/27/24 Rx Allergies Allergy/AdvReac Type Severity Reaction Status Date / Time No Known Drug Allergies Allergy Verified 07/31/24 14:20 Exam Narrative Exam Narrative: Psych-alert and oriented x 3. Attentive and appropriate, constitutionally normal, displays normal mood and affect per situation.? There are no obvious deficits in memory, reasoning, or intellect.? Skin-no obvious rashes, bruising, erythema noted to the patient's area of pain. Extremities- extremities are warm with minimal edema and palpable pulses. Lumbar-no significant tenderness to palpation noted in the lumbar spine and paraspinal musculature.? Pain is elicited with extension, and lateral rotation of the lumbar spine. Range of motion is slightly diminished with these motions due to pain. Coordination remains intact.? Gait remains non-antalgic. Assessment and Plan Assessment and Plan (1) Lumbar radiculopathy: (2) S/P lumbar spinal fusion: (3) Lumbar postlaminectomy syndrome: Plan 78yof who presents for assessment. continues to have significant pain that is quite debilitating. recent mri did not show any acute pathology. discussed that given her symptoms and imaging findings, no indication for surgery. she may ultimately benefit from scs, given her surgical hx and symptoms, but will first have her try a month of prednisone 5mg daily. also discussed that she should stop gabapentin and lyrica altogether, given significant side effects. follow up in 1 month.
== END 2024-08-03 11:45 | disposition home or self-care (01) ==
LOC: PM 11:44
PROVIDERS: PCP Family Medicine; Visit Provider Anesthesiology
DX: M54.16 Radiculopathy, lumbar region (principal); M43.26 Fusion of spine, lumbar region; M96.1 Postlaminectomy syndrome, not elsewhere classified
CPT/HCPCS: G0463

== ENCOUNTER 2024-09-03 10:57 | Outpatient (OUT) | payer MEDICARE, SELFPAY ==
--- OUTSIDE RECORDS SUMMARY | 2024-09-03 11:16 | XMS_ITS | CCD ---
Author Organization [facility] Care Team Providers Care Manager Analysis Name Role Phone PHYSICIAN, DEFAULT Admitting Unavailable PHYSICIAN, DEFAULT Attending Unavailable ALT-DANIEL, BRINDA Primary Care Unavailable ARIADNA NOLAN Admitting Unavailable ARIADNA NOLAN Attending Unavailable ALT-DANIEL, BRINDA Referring Unavailable ALT-DANIEL, BRINDA Primary Care Unavailable MATTHEWS ., DR MASSIMO Cook Attending Unavailable SALDAÑA ., MICHELE Consulting Unavailable ABDOULAYE, DR VIKY Crain Primary Care Unavailable MATTHEWS [...] DR MASSIMO Cook Consulting Unavailable ABDOULAYE, DR VIKY Crain Primary Care Unavailable DENY JACOBSON Consulting Unavailable MATTHEWS ., DR MASSIMO oCok Attending Unavailable MATTHEWS ., DR MASSIMO Cook Admitting Unavailable SALDAÑA ., MICHELE Consulting Unavailable ABDOULAYE, DR VIKY Crain Primary Care Unavailable MATTHEWS ., DR MASSIMO Cook Consulting Unavailable MATTHEWS ., DR MASSIMO Cook Attending Unavailable MATTHEWS ., DR MASSIMO Cook Admitting Unavailable STANFORD, DR VIKY Crain Primary Care Unavailable MATTHEWS ., DR MASSIMO Cook Attending Unavailable MATTHEWS ., DR MASSIMO Cook Admitting Unavailable SALDAÑA ., MICHELE Consulting Unavailable ABDOULAYE, DR VIKY Crain Primary Care Unavailable MATTHEWS ., DR MASSIMO Cook Attending Unavailable MATTHEWS ., DR MASSIMO Cook Admitting Unavailable SALDAÑA ., MICHELE Consulting Unavailable ABDOULAYE, DR VIKY Crain Primary Care Unavailable SALDAÑA ., MICHELE Attending Unavailable ABDOULAYE, DR VIKY Crain Primary Care Unavailable SALDAÑA ., MICHELE Admitting Unavailable MATTHEWS ., DR MASSIMO Cook Admitting Unavailable ABDOULAYE, DR VIKY Crain Primary Care Unavailable MATTHEWS [...] Admitting Unavailable SALDAÑA ., MICHELE Consulting Unavailable BALL, DR FLANAGAN Primary Care Unavailable MATTHEWS ., DR MASSIMO Cook Admitting Unavailable MATTHEWS ., DR MASSIMO Cook Attending Unavailable STANFORD, DR VIKY Crain Primary Care Unavailable MATTHEWS ., DR MASSIMO Cook Consulting Unavailable Viky Stanford Unavailable Asaad, Imad Unavailable MD Viky Stanford Primary Care Provider [phone] MD Sunny Torres Attending Provider MD Viky Stanford Primary Care Provider MD Sunny Torres Attending Provider [phone] Viky Stanford Primary Care Unavailable Asaad, Imad Admitting Unavailable Asaad, Imad Attending Unavailable Viky Stanford Primary Care Unavailable Asaad, Imad Admitting Unavailable Asaad, Imad Attending Unavailable APLING, ROMELIA B Attending Unavailable APLING, ROMELIA B Attending Unavailable APLING, ROMELIA B Attending Unavailable APLING, ROMELIA B Attending Unavailable APLING, ROMELIA B Attending Unavailable APLING, ROMELIA B Referring Unavailable APLING, ROMELIA Keith Attending Unavailable Viky Stanford MD Primary Care Provider HAM, ECHO Mir Admitting Unavailabl e HAM, ECHO Mir Attending Unavailabl e VIKY STANFORD Primary Care Unavailable HAM, ECHO Mir Referring Unavailabl e VIKY STANFORD Primary Care Unavailable HAM, ECHO Mir Attending Unavailabl e HAM, ECHO Mir Referring Unavailabl e VIKY STANFORD Primary Care Unavailable Viky Stanford MD Primary Care Provider [phone] Darrion DIAZ, Ara Loomis Attending Unavailable Darrion DIAZ, Ara Loomis Attending Unavailable Gitorinitis , Ara Loomis Attending Unavailable Giedraitis , Ara Loomis Attending Unavailable Allergies Allergy Classification Reported Allergen(s) Allergy Type Date of Onset Reaction(s) Facility (8 sources) Calcitonin ([place]) *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 Propensity to adverse reactions Comment:severe weakness [employer] Other (3 sources) calcitonin; Translations: [calcitonin] Propensity to adverse reactions 4 Other (See Comments) [facility] (1 source) Fish Oils Drug Allergy 4 Other (See Comments) [facility] Medications Current Medications Medication Drug Class(es) [...] 14 days Orally Once a day for Sep, Active take 2 capsules by m [...] TAB PO Daily March 13, 2024 12:00am Fvfevcl-Nfhcyvcqke-Ewfmxvo D (Citracal +D3) 250-107-500 MG-MG-UNIT chewable tablet [...] Active Subcutaneous for 0 *Pick strength-form from [facility] for eRX* Aug, Active diclofenac [...] day for 0 days *Pick strength-form from [employer] for eRX* Oct, Active Magnesium 400 MG capsule as directed Orally Active magnesium oxide 400 mg oral tablet (1 source) Start: 03-13-2024 take 1 tablet by mouth once daily Magnesium Oxide Active 400 MG PO Daily March 13, 2024 12:00am [employer] tablet with a meal Orally Once a day; Note: Source Status: Taking*Pick strength-form from [employer] for eRX*; Provider: Abdoulaye Gomez ( ) Multiple Vitamin (8 sources) take 1 tablet by mouth once daily Multiple Vitamin 1 tablet Orally Once a day Active Multiple Vitamin (MULTIVITAMIN ADULT PO) (6 sources) take 1 capsule by mouth in the morning Multiple Vitamin (MULTIVITAMIN ADULT PO) Take 1 capsule by mouth in the morning. Active Hnlcllss-Aidw-If-Ca lcium-Mins (Daily Multiple For Women) 18 mg iron-400 mcg-500 mg Ca tablet (1 source) Start: 03-13-2024 take 1 tablet by mouth once daily Hxxclnon-Ufxg-Rw-Ca lcium-Mins (Daily Multiple For Women) 18 mg [...] UNIT (8 sources) take 1 tablet by briejsh th once daily Vitamin D3 1000 UNIT [...] solution Discontinued 175 ML PO Daily 175 October 04, 2023 1:00am March 20, 2024 [...] Other aftercare (8 sources) 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; Translations: [skilled nursing (current) use of bisphosphonates] Episodic Other connective [...] Quyen Ruffin MD 06/28/24 Final result Normal [facility] CT Pelvis WO contraston - Fusion at the right SI joint. No osseous fusion at this time. [facility] RIS CONSOLIDATED EXAMINATION: CT OF [...] the previous surgery. Joint: Osteoarthritis [facility] RIS CONSOLIDATED Quyen Ruffin MD - 06/28/2024 EXAMINATION: [...] joint. No osseous fusion at this time. [employer] CT Pelvis WO contrastOrdered By: Quyen Ruffin on 06-28-2024 [employer] Work Phone: CT Pelvis WO contraston 06-12 Radiology Study observation (narrative) [employer] FLUORO FOR SURGICAL PROCEDUR ESon 06-09-2024 FLUORO FOR SURGICAL PROCEDURES Radiology exam is complete. No Radiologist dictation. Please follow up with ordering provider. Final result Normal [facility] EKG 12 LeadOrdered By: Carter Machuca on 06-03-2024 Atrial Rate 87 BPM [employer] Work Phone: P [place] 32 degrees [place] Work Phone: P-R Interval 136 ms [employer] Work Phone: Q-T Interval 350 ms [employer] Work Phone: QRS Duration 74 ms [employer] Work Phone: QTc Calculation ([place]az[place]) 421 ms [employer] Work Phone: R [place] 12 degrees [employer] Work Phone: T [place] 45 degrees [employer] Work Phone: Ventricular Rate 87 BPM [facility] [employer] Work Phone: [employer] Work Phone: EKG 12 Leadon 06-03-2024 Normal sinus rhythm Normal ECG No previous ECGs available [facility] Carter Urrutia, - 06/03/2024 Normal sinus rhythm Normal ECG No previous ECGs available [facility] [employer] CBC with Auto Differentialon 06-02-2024 Basophils (Bld) [#/Vol] 0.06 10*3/uL [facility] Basophils/100 WBC (Bld) 1 % 0 - 2 % [facility] Eosinophils (Bld) [#/Vol] 0.09 10*3/uL [facility] Eosinophils/100 WBC (Bld) 1 % 1 - 4 % [facility] Erythrocyte distribution width (RBC) [Ratio] 12.5 % 11.8 - 14.4 % [facility] Hematocrit (Bld) [Volume fraction] 41.5 % 36.3 - 47.1 % [facility] Hemoglobin (Bld) [Mass/Vol] 13.2 g/dL 11.9 - 15.1 g/dL [facility] Immature granulocytes (Bld) [#/Vol] 0.05 10*3/uL [facility] Immature granulocytes/100 WBC (Bld) 1 % High 0 [facility] Interpretation and review of laboratory results Abnormal [facility] Lymphocytes/100 WBC (Bld) 20 % Low 24 - 43 % [facility] Lymphocytes/100 WBC (Bld) 1.62 % [facility] MCH (RBC) [Entitic mass] 31.1 pg 25.2 - 33.5 pg [facility] MCHC (RBC) [Mass/Vol] 31.8 g/dL 28.4 - 34.8 g/dL [facility] MCV (RBC) [Entitic vol] 97.6 fL 82.6 - 102.9 fL [facility] Monocytes/100 WBC (Bld) 10 % 3 - 12 % [facility] Monocytes/100 WBC (Bld) 0.80 % [facility] Neutrophils/100 WBC (Bld) 67 % High 36 - 65 % [facility] Nucleated RBC/100 WBC (Bld) [Ratio] 0.0 % 0.0 per 100 WBC [facility] Platelet mean volume (Bld) [Entitic vol] 10.0 fL 8.1 - 13.5 fL [facility] Platelets (Bld) [#/Vol] 247 10*3/uL [facility] RBC (Bld) [#/Vol] 4.25 10*6/uL 3.95 - 5.1 1 m/uL [facility] Segmented neutrophils/100 WBC (Bld) 5.57 % [facility] WBC other (Bld) [#/Vol] 8.2 [facility] CBC with Diffon 06-02-2024 Abs. Basophil 0.06 k/uL Normal 0.00-0.20 [facility] Comment on above: Performed By: #### C DP #### [facility] [email or web address] [facility] [place] [address] Rail Washer: Arpit Cruz MD Abs.Imm.Granulocyte 0.05 k/uL Normal 0.00-0.30 [facility] Comment on above: Performed By: #### C DP #### [place] [address] Rail Washer: Arpit Cruz MD Abs.Neutrophil (Seg) 5.57 k/uL Normal 1.50-8.10 [facility] Comment on above: Performed By: #### C DP #### [place] [address] Rail Washer: Arpit Cruz MD Basophils/100 WBC (Bld) 1 % Normal 0-2 [facility] Comment on above: Performed By: #### C DP #### [place] [address] Rail Washer: Arpit Cruz MD Eosinophils (Bld) [#/Vol] 0.09 10*3/uL Normal 0.00-0.44 [facility] Comment on above: Performed By: #### C DP #### [place] [address] Rail Washer: Arpit Cruz MD Eosinophils/100 WBC (Bld) 1 % Normal 1-4 [facility] Comment on above: Performed By: #### C DP #### [place] [address] Rail Washer: Arpit Cruz MD Erythrocyte distribution width (RBC) [Ratio] 12.5 % Normal 11.8-14.4 [facility] Comment on above: Performed By: #### C DP #### [place] [address] Rail Washer: Arpit Cruz MD Hematocrit (Bld) [Volume fraction] 41.5 % Normal 36.3-47.1 [facility] Comment on above: Performed By: #### C DP #### [address] [address] Rail Washer: Arpit rCuz MD Hemoglobin (Bld) [Mass/Vol] 13.2 g/dL Normal 11.9-15.1 [facility] Comment on above: Performed By: #### C DP #### [address] [address] Rail Washer: Arpit Cruz MD Immature granulocytes/100 WBC (Bld) 1 % High 0 [facility] Comment on above: Performed By: #### C DP #### [address] [address] Rail Washer: Arpit Cruz MD Lymphocytes (Bld) [#/Vol] 1.62 10*3/uL Normal 1.10-3.70 [facility] Comment on above: Performed By: #### C DP #### [address] [address] Rail Washer: Arpit Cruz MD Lymphocytes/100 WBC (Bld) 20 % Low 24-43 [facility] Comment on above: Performed By: #### C DP #### [address] [address] Rail Washer: Arpit Cruz MD MCH (RBC) [Entitic mass] 31.1 pg Normal 25.2-33.5 [facility] Comment on above: Performed By: #### C DP #### [address] [address] Rail Washer: Arpit Cruz MD MCHC (RBC) [Mass/Vol] 31.8 g/dL Normal 28.4-34.8 [facility] Comment on above: Performed By: #### C DP #### [address] [address] Rail Washer: Arpit Cruz MD MCV (RBC) [Entitic vol] 97.6 fL Normal 82.6-102.9 [facility] Comment on above: Performed By: #### C DP #### [address] [address] Rail Washer: Arpit Cruz MD Monocytes (Bld) [#/Vol] 0.80 10*3/uL Normal 0.10-1.20 [facility] Comment on above: Performed By: #### C DP #### [address] [address] Rail Washer: Arpit Cruz MD Monocytes/100 WBC (Bld) 10 % Normal 3-12 [facility] Comment on above: Performed By: #### C DP #### [address] [address] Rail Washer: Arpit Cruz MD Neutrophil (Seg) 67 % High 36-65 [facility] Comment on above: Performed By: #### C DP #### [address] [address] Rail Washer: Arpit Cruz MD NRBC Automated 0.0 per 100 WBC Normal 0.0 [facility] Comment on above: Performed By: #### C DP #### [address] [address] Rail Washer: Arpit Cruz MD Platelet mean volume (Bld) [Entitic vol] 10.0 fL Normal 8.1-13.5 [facility] Comment on above: Performed By: #### C DP #### [address] [address] Rail Washer: Arpit Cruz MD Platelets (Bld) [#/Vol] 247 10*3/uL Normal 138-453 [facility] Comment on above: Performed By: #### C DP #### [address] [id number] Rail Washer: Arpit Cruz MD RBC (Bld) [#/Vol] 4.25 10*6/uL Normal 3.95-5.11 [facility] Comment on above: Performed By: #### C DP #### [facility] [address] [place] [address] Rail Washer: Arpit Cruz MD WBC (Bld) [#/Vol] 8.2 10*3/uL Normal 3.5-11.3 [facility] Comment on above: Performed By: #### C DP #### [facility] [address] [place] [address] Rail Washer: Arpit Cruz MD XR Knee - left 3 [facility] Result: April 15, 2024 x-rays AP weight-bearing bilateral knees lateral and sunrise of the left knee demonstrate medial compartment narrowing bilateral knees left slightly more advanced than the right. Subchondral sclerosis is noted. Subchondral sclerosis is noted in the patellofemoral joint. No fractures detected. Impression: Osteoarthritis bilateral knees Echo Velazquez D.O. [facility] XR Knee - left 3 ViewsOrdere d By: Cullen Velazquez on 04-16-2024 [employer] Work Phone: No Panel Informationon 04-15 Romelia Mcclain NP 04/17/2024 6:43 AM L Inj/Asp: L knee on 04/15/2024 11:43 AM Indications: pain Details: 20 G needle, anterolateral approach Medications: 40 mg methylPREDNISolone acetate 40 MG/ML Procedure, treatment alternatives, risks and benefits explained, specific risks discussed. Consent was given by the patient. Szlcar e XR Knee - left 3 [facility] Study observation (narrative) [facility] Request for Lab Co rpon 03-20-2024 Pathology Request for Lab Dorothy Normal [facility] Comment on above: Order Comment: PATHO LOGY GI SPECIMEN Result Comment: See report. Scanned copy available in EMR. PERFORMED BY: [facility] [address] [place] [address] PATHOLOGIST EMPLOYMENT SUPERVISOR HELENE LEON M.D. Performed By: #### P ATH TO [facility] #### [facility] [address] [place] [id number] [facility] Guevara 10-02-2023 L Specimen: [id number] Received: 10/02/23 Status: SOUT Req Num: [id number] Spec Type: Surgical Subm Dr: Sunny Torres MD Tissues: A GASTRIC FOR HP (GASTRIC BX R/O H.PYLORI) B Colon Biopsy (RANDOM COLON BX R/O MICROSCO) Procedures: HE/4, Gross/Micro L4/2, H PYLORI Age/ Patient Sex Location Account Attending Physician Arianne Murdock 78/F [id number] Sunny Torres MD SPEC NUM: [id number] RECD: 10/02/23 STATUS: SOUT REQ NUM: [id number] TEO: 10/02/[address]: Sunny Torres MD ENTERED: 10/02/[address] [facility] [address]: SPEC TYPE: Surgical DEPT: S ORDERED: [...] date of and random colon ---- Specimen: [id number] Received: 10/02/23 Status: OJ Brice Num: [id number] Spec Type: Surgical Subm Dr: Sunny Torres MD Tissues: A GASTRIC FOR HP (GASTRIC BX R/O H.PYLORI) B Colon Biopsy (RANDOM COLON BX R/O MICROSCO) Procedures: HE/4, Gross/Micro L4/2, H PYLORI ---- Patient: Arianne Murdock [id number] (Continued) ---- Specimen: [id number] Received: 10/02/23 (Continued) Gross Description (Continued) Signed (signature on file) Patito Grimm MD 10/03/23 1430 ---- Specimen: [id number] Received: 10/02/23 Status: OJ Brice Num: [id number] Spec Type: Surgical Subm Dr: Sunny Torres MD Tissues: A GASTRIC FOR HP (GASTRIC BX R/O H.PYLORI) B Colon Biopsy (RANDOM COLON BX R/O MICROSCO) Procedures: HE/4, Gross/Micro L4/2, H PYLORI ---- Patient: Arianne Murdock [id number] (Continued) ---- Specimen: [id number] Received: 10/02/23 (Continued) Gross Description (Continued) biopsy are 2 galvan translucent soft tissue fragments, 0.3 and 0.6 cm in greatest dimensions. Entirely submitted in one cassette labeled B1. CPT Codes [id number] ---- ---- Specimen: [id number] Received: 10/02/23-1022 Status: OJ Brice Num: [id number] Spec Type: Surgical Subm Dr: Sunny Torres MD Tissues: A GASTRIC FOR HP (GASTRIC BX R/O H.PYLORI) B Colon Biopsy (RANDOM COLON BX R/O MICROSCO) Procedures: HE/4, Gross/Micro L4/2, H PYLORI ---- Patient: Arianne Murdock [id number] (Continued) ---- Signed (signature on file) Patito Grimm MD 10/03/23 1430 Normal [facility] CALCIUMon 10-03-2022 Calcium [Mass/Vol] 8.9 mg/dL Normal 8.5-10.1 [facility] Comment on above: Performed By: #### C VALERIO ADAMS #### [facility] [address] [place] [address] Dr. Dang Grimm CREATININEon 10-03-2022 Creatinine [Mass/Vol] 1.03 mg/dL Critically high 0.55-1.02 [facility] [place] Comment on above: Performed By: #### C [place], [place] #### [facility] [address] [place], [place] [address] Dr. Dang Grimm EGFR-AF MALTESE >60 Normal >=60 [facility] Comment on above: Performed By: #### C [place], [place] #### [facility] [address] [place], [place] [address] Dr. Dang Grimm EGFR-NON AF MALTESE 52 mL/min/1.73m2 Critically low >=60 [facility] Comment on above: Performed By: #### C [place], [place] #### [facility] [address] [place], [place] [address] Dr. Dang Grimm Covid-19 PCR ([facility])on SARS-CoV-2 (COVID-19) RNA GENARO+probe Ql (Unsp spec) Not detected Normal NOT DETECTED [facility] Comment on above: Result Comment: This test is not yet approved or cleared by the [place] FDA. When there are no FDA-approved or cleared tests available, and other criteria are met, FDA can make tests available under an emergency access mechanism called an Emergency Use Authorization (EUA). The EUA for this test is supported by the [place] of Health and Human Service's (HHS's) declaration [...] SARS-CoV-2. Performed By: #### C VDTBH #### [facility] [address] [place], [place] [address] Dr. Dang Archer 04-20-2022 OCTAVIA PATTERN SPECKLED Normal [facility] Comment on above: Result Comment: The [...] authority. Performed By: #### 1 0196 #### [facility] [address] OCTAVIA SCREEN 1:40 Normal <1:40,1:40 [facility] Comment on above: Result Comment: Test performed using MELCH[employer] IFA OCTAVIA Hep-2 Test, a pre-standardized assay designed for the qualitative and semi-quantitative detection of antinuclear antibodies. Performed By: #### 1 0196 #### [facility] [address] C REACTIVE PROTEINon 022 CRP [Mass/Vol] 2.5 mg/L Normal 0.0-7.0 [facility] Comment on above: Performed By: #### 6 1405, 624[address] #### [facility] [address] CBC COMPLETE BLOOD COUNTon 0 04-20-2022 Erythrocyte distribution width (RBC) [Ratio] 12.4 % Normal 11.5-15.0 [facility] Comment on above: Performed By: #### 5 0726, 61977 #### [facility] [address] Hematocrit (Bld) [Volume fraction] 41.6 % Normal 36.0-45.0 [facility] Comment on above: Performed By: #### 5 1236, 68[address] #### [facility] [address] Hemoglobin (Bld) [Mass/Vol] 13.7 g/dL Normal 12.0-15.0 [facility] Comment on above: Performed By: #### 5 650, 80558 #### [facility] [address] [place] [address], [facility] MCH (RBC) [Entitic mass] 31.4 pg Normal 27.0-33.0 [facility] Comment on above: Performed By: #### 5 650, 779[address] #### [facility] [address] [place] [id number], [facility] MCHC (RBC) [Mass/Vol] 32.9 g/dL Normal 32.0-35.0 [facility] Comment on above: Performed By: #### 5 650, 53624 #### [facility] [address] [place] [id number], [facility] MCV (RBC) [Entitic vol] 95.2 fL Normal 82.0-98.0 [facility] Comment on above: Performed By: #### 5 650, 61608 #### [facility] [address] [place] [id number], [facility] Nucleated RBC/100 WBC (Bld) [Ratio] 0 % Normal 0-0 [facility] Comment on above: Performed By: #### 5 650, [address]1009 #### [facility] [address] [place] [address], [facility] PLAT CNT 248 10*3/uL Normal 150-400 [facility] Comment on above: Performed By: #### 5 650, 338[address] #### [facility] [address] [place] [id number], [facility] RBC (Bld) [#/Vol] 4.37 10*6/uL Normal 3.80-5.00 [facility] Comment on above: Performed By: #### 5 650, 200[address] #### [facility] [address] [place] [address], [place] WBC (Bld) [#/Vol] 5.54 10*3/uL Normal 4.00-10.60 [facility] Comment on above: Performed By: #### 5 6506, [address] #### [address] [address], [facility] CERVICAL SPINE 4 OR 5 VIEWSo n 04-20-2022 CERVICAL SPINE 4 OR 5 VIEWS [facility] Department of Radiology [address] [place] [id number] ======== Patient Name: ARIANNE MURDOCK : 1945 Sex: F Age: Race: White Pt. Location: [facility] Patient Status: O Ordered Date: 04/20/2022 10:50:00 AM Completed Date: 04/20/2022 11:42 AM Requesting Provider: MICHAEL HAHN Attending Provider: ARIADNA NOLAN Report Copy To: Signs & Symptoms: M54.2 Cervicalgia I10 History: [place] Comments: Views (X-RAY, CERVICAL SPINE): AP, Lateral, [...] C3 Electronically signed: Christian Upton. Transcribed by: [email or web address], User Resident: Electronically Signed by: CHRISTIAN UPTON @ 04/20/2022 02:[address] [facility] Comment on above: Order Comment: Views (X-RAY, CERVICAL SPINE): AP, Lateral, Odontoid, Flexion, Extension COMP METABOLIC PANELon 04-20 Albumin [Mass/Vol] 4.1 g/dL Normal 3.5-5.7 [facility] Comment on above: Performed By: #### 3 5515, 15493, 01997 #### [facility] [address] ALKALINE PHOSPH 63 IU/L Normal 34-104 [facility] Comment on above: Performed By: #### 3 5515, 33185, [address] #### [facility] [address] [place] [address], [facility] ALT [Catalytic activity/Vol] 15 U/L Normal 7-52 [facility] Comment on above: Performed By: #### 3 5515, 05179, 348[address] #### [facility] [address] [place] [address], [facility] AST [Catalytic activity/Vol] 22 U/L Normal 13-39 [facility] Comment on above: Performed By: #### 3 5515, 65783, 26713 #### [facility] [address] [place] [address], [facility] Bilirubin [Mass/Vol] 0.5 mg/dL Normal 0.3-1.0 [facility] Comment on above: Performed By: #### 3 5515, 47034, 63772 #### [facility] [address] [place] [address], [place] Calcium [Mass/Vol] 10.2 mg/dL Normal 8.6-10.3 [facility] Comment on above: Performed By: #### 3 5515, 03203, 06279 #### [facility] [address] [place] [address], [place] Chloride [Moles/Vol] 105 mmol/L Normal 98-107 [facility] Comment on above: Performed By: #### 3 5515, 72745, 72726 #### [facility] [address] [place] [address], [place] CO2 [Moles/Vol] 25 mmol/L Normal 21-31 [facility] Comment on above: Performed By: #### 3 5515, 37951, 61337 #### [facility] [address] [place] [address], [place] Creatinine [Mass/Vol] 0.95 mg/dL Normal 0.60-1.20 [facility] Comment on above: Performed By: #### 3 5515, 69773, 06426 #### [facility] [address] [place] [address], [place] GFR/1.73 sq M.predicted among non-blacks MDRD [...] of individuals. Performed By: #### 3 5515, 82725, 62705 #### [facility] [address] [place] [address], [place] Glucose [Mass/Vol] 88 mg/dL Normal 70-100 The [facility] Comment on above: Performed By: #### 3 5515, 46591, 96438 #### [facility] [address] [place] [address], [place] Potassium [Moles/Vol] 4.5 mmol/L Normal 3.5-5.1 [facility] Comment on above: Performed By: #### 3 5515, 82784, 36459 #### [facility] [address] [place] [address], [place] Protein [Mass/Vol] 6.8 g/dL Normal 6.0-8.3 [facility] Comment on above: Performed By: #### 3 5515, 02193, 71003 #### [facility] [address] [place] [address], [place] Sodium [Moles/Vol] 138 mmol/L Normal 136-145 [facility] Comment on above: Performed By: #### 3 5515, 43609, 79107 #### [facility] [address] [place] [address], [place] Urea nitrogen [Mass/Vol] 29 mg/dL High 7-25 [facility] Comment on above: Performed By: #### 3 5515, 84124, 28880 #### [facility] [address] [place] [address], [facility] CYCLIC [place]INATED PEPTIDE [place] [id number] 04-20-2022 CYCLIC CIT PEP 2 Units Normal 0-19 The [facility] Comment on above: Result Comment: INTE RPRETIVE [...] be monitored and testing repeated. Performed By: [employer] [address] [place] [id number] Enterprise Engineer: Brett Tamez MD, PhD FERRITINon 04-20-2022 Ferritin [Mass/Vol] 43 ng/mL Normal 11-307 The [facility] Comment on above: Performed By: #### 3 5515, 63988, 53779 #### [address] [facility] 04-20-2022 HAND LEFT 3 VWS [facility] Department of Radiology [address] [place] [id number] ======== Patient Name: ARIANNE MURDOCK : 1945 Sex: F Age: Race: White Pt. Location: [facility] Patient Status: O Ordered Date: 04/20/2022 10:50:00 AM Completed Date: 04/20/2022 11:42 AM Requesting Provider: MICHAEL HAHN Attending Provider: ARIADNA NOLAN Report Copy To: Signs & Symptoms: M79.641 Pain in right hand I10 History: [place] Comments: Evaluate Exam: HAND LEFT 3 [facility] ======== HAND LEFT 3 S 04/20/2022 11:42 [...] report. Electronically signed: Chelita Lazcano. Transcribed by: [email or web address], User Resident: NIRMALA MONGE Electronically Signed by: CHELITA LAZCANO @ 04/20/2022 01:29 PM I personally read this/these film(s) with this resident Normal The [facility] Comment on above: Order Comment: Evalu ate HAND RIGHT 3 [facility] 2 HAND RIGHT 3 [facility] Department of Radiology [address] [place] [id number] ======== Patient Name: ARIANNE MURDOCK : 1945 Sex: F Age: Race: White Pt. Location: 264 Patient Status: O Ordered Date: 04/20/2022 10:50:00 AM Completed Date: 04/20/2022 11:42 AM Requesting Provider: MICHAEL HAHN Attending Provider: ARIADNA NOLAN Report Copy To: Signs & Symptoms: M79.641 Pain in right hand I10 History: [place] Comments: Evaluate Exam: HAND RIGHT 3 VWS [...] report. Electronically signed: Chelita Lazcano. Transcribed by: [email or web address], User Resident: NIRMALA MONGE Electronically Signed by: CHELITA LAZCANO @ 04/20/2022 01:43 PM I personally read this/these film(s) with this resident Normal [facility] Comment on above: Order Comment: Evalu ate RHEUMATOID FACTOR SERUMon RA <20 Normal 0-20 [facility] Comment on above: Performed By: #### 6 9339, [id number] #### [facility] [address] [place] [address], [facility] SEDIMENTATION RATEon 022 SED RATE 38 mm/hr High 0-20 [facility] Comment on above: Performed By: #### 5 6506, 04305 ####[facility] [place] [address], [facility] TIBC- INCLUDES IRONon 2021 FE SATURATION 30 % Normal 20-50 [facility] Comment on above: Performed By: #### 3 5515, 85132, 71819 #### [facility] [address] [place] [address], [facility] Iron [Mass/Vol] 115 ug/dL Normal 50-212 [facility] Comment on above: Performed By: #### 3 5515, 21847, 57263 #### [facility] [address] [place] [address], [facility] TIBC 378 mcg/dL Normal 250-450 [facility] Comment on above: Performed By: #### 3 5515, 80636, 30802 #### [facility] [address] [place] [id number], [facility] UIBC 263 mcg/dL Normal 155-355 [facility] Comment on above: Performed By: #### 3 5515, 54729, 31318 #### [facility] [address] [place] [id number], [facility] CALCIUMon 04-09-2022 Calcium [Mass/Vol] 9.6 mg/dL Normal 8.5-10.1 [facility] Comment on above: Performed By: #### VALERIO MADRIGAL #### [facility] [address] [place] [address] [address] Dang Grimm CREATININEon 04-09-2022 Creatinine [Mass/Vol] 1.07 mg/dL Critically high 0.55-1.02 [facility] [place] Comment on above: Performed By: #### [place] #### [facility] [address] [place], [place] [address] Dr. Dang Grimm EGFR-AF MALTESE >60 Normal >=60 [facility] Comment on above: Performed By: #### [place] #### [facility] [address] [place], [place] [address] Dr. Dang Grimm EGFR-NON AF MALTESE 50 mL/min/1.73m2 Critically low >=60 [facility] [place] Comment on above: Performed By: #### [place] #### [facility] [address] [place], [place] [address] Dr. Dang Grimm Vital Signs Date Time Vital Sign Value Performing Clinician Facility 06-02-2024 14:33-0400 Body height 154.9 cm Stvz Schedule [facility] 06-02-2024 14:33-0400 Body mass index (BMI) [Ratio] 24 kg/m2 Stvz Schedule [facility] 06-02-2024 14:33-0400 Body weight 57.61 kg Stvz Schedule [facility] 06-02-2024 14:33-0400 Diastolic blood pressure 63 mm[Hg] Stvz Schedule [facility] 06-02-2024 14:33-0400 Heart rate 96 /min Stvz Schedule [facility] 06-02-2024 14:33-0400 Respiratory rate 16 /min Stvz Schedule [facility] 06-02-2024 14:33-0400 SaO2% (BldA) [Mass fraction] 97 % Stvz Schedule [facility] 06-02-2024 14:33-0400 Systolic blood pressure 132 mm[Hg] Stvz Schedule [facility] 03-20-2024 09:15-0400 Diastolic blood pressure 62 mm[Hg] MD Viky Stanford Work Phone: [facility] 03-20-2024 09:15-0400 Heart rate 72 /min MD Viky Stanford Work Phone: [facility] 03-20-2024 09:15-0400 Respiratory rate 20 /min MD Viky Stanford Work Phone: [facility] 03-20-2024 09:15-0400 SaO2% (BldA) [Mass fraction] 99 % MD Viky Stanford Work Phone: [facility] 03-20-2024 09:15-0400 Systolic blood pressure 115 mm[Hg] MD Viky Stanford Work Phone: [facility] 03-20-2024 07:18-0400 Body height 156.84 cm MD Viky Stanford Work Phone: [facility] 03-20-2024 07:18-0400 Body weight 55.33 kg MD Viky Stanford Work Phone: [facility] 03-16-2024 09:04-0400 Body height 156.84 cm MD Viky Stanford Work Phone: [facility] 03-16-2024 09:04-0400 Body mass index (BMI) [Ratio] 22.8 kg/m2 MD Viky Stanford Work Phone: [facility] 03-16-2024 09:04-0400 Body weight 56.24 kg MD Viyk Stanford Work Phone: [facility] 03-16-2024 09:04-0400 Diastolic blood pressure 72 mm[Hg] MD Viky Stanford Work Phone: [facility] 03-16-2024 09:04-0400 Heart rate 81 /min MD Viky Stanford Work Phone: [facility] 03-16-2024 09:04-0400 Systolic blood pressure 122 mm[Hg] MD Viky Stanford Work Phone: [facility] 10-02-2023 09:55-0500 Diastolic blood pressure 67 mm[Hg] MD Viky Stanford Work Phone: [facility] 10-02-2023 09:55-0500 Heart rate 80 /min MD Viky Stanford Work Phone: [facility] 10-02-2023 09:55-0500 Respiratory rate 16 /min MD Viky Stanford Work Phone: [facility] 10-02-2023 09:55-0500 SaO2% (BldA) [Mass fraction] 99 % MD Viky Stanford Work Phone: [facility] 10-02-2023 09:55-0500 Systolic blood pressure 108 mm[Hg] MD Viky Stanford Work Phone: [facility] 10-02-2023 07:07-0500 Body height 160.02 cm MD Viky Stanford Work Phone: [facility] 10-02-2023 07:07-0500 Body weight 56.69 kg MD Viky Stanford Work Phone: [facility] 08-30-2023 10:30-0500 Body height 157.48 cm Viky Stanford Other [facility] 08-30-2023 10:30-0500 Body mass index (BMI) [Ratio] 21.73 kg/m2 Viky Stanford Other [facility] Other 08-30-2023 10:30-0500 Body weight 53.89 kg Viky Stanford Other [facility] Other 08-30-2023 10:30-0500 Body weight 53.88 kg MD Viky Stanford Work Phone: [facility] 08-30-2023 10:30-0500 Diastolic blood pressure 74 mm[Hg] Viky Stanford Other [facility] 08-30-2023 10:30-0500 Systolic blood pressure 122 mm[Hg] Viky Stanford Other [facility] 08-21-2023 13:45-0500 Body height 157.48 cm Imad Asaad Other [facility] 08-21-2023 13:45-0500 Body mass index (BMI) [Ratio] 21.58 kg/m2 Imad Asaad Other [facility] Other 08-21-2023 13:45-0500 Body weight 53.52 kg Imad Asaad Other [facility] 07-15-2023 11:30-0500 Body height 157.48 cm Viky Stanford Other [facility] 07-15-2023 11:30-0500 Body mass index (BMI) [Ratio] 21.73 kg/m2 Viky Stanford Other [facility] Other 07-15-2023 11:30-0500 Body weight 53.89 kg Viky Stanford Other [facility] Other 07-15-2023 11:30-0500 Body weight 53.88 kg MD Viky Stanford Work Phone: [facility] 07-15-2023 11:30-0500 Diastolic blood pressure 78 mm[Hg] Viky Stanford Other [facility] 07-15-2023 11:30-0500 Systolic blood pressure 148 mm[Hg] Viky Stanford Other [facility] 07-06-2023 09:20-0500 Body height 157.48 cm MD Viky Stanford Work Phone: [facility] 07-06-2023 09:20-0500 Body weight 55.51 kg MD Viky Stanford Work Phone: [facility] Encounters Encounter Date Encounter Type Care Provider Facility Start: 08-03-2024 End: 08-03-2024 ambulatory Ara Maier MD Facility: [facility] Start: 07-27-2024 End: 07-27-2024 ambulatory Ara Maier MD Facility:[facility] Start: 07-06-2024 End: 07-06-2024 ambulatory Ara Maier MD Facility: [facility] Start: 06-26-2024 End: 06-28-2024 ambulatory ECHO Mir [facility] Start: 06-26-2024 End: 06-28-2024 Subsequent hospital visit by physician Echo Ham DO Work Phone: [facility] CT Scan Comment on above: Sacroiliitis (HCC) Start: 06-09-2024 End: 06-09-2024 ambulatory ECHO Mir [facility] Start: 06-02-2024 End: 06-06-2024 ambulatory ECHO Mir [facility] Start: 06-02-2024 Encounter for other preprocedural examination [facility] Start: 06-02-2024 End: 06-06-2024 Patient encounter status Hoa Moody [facility] Start: 06-02-2024 End: 06-06-2024 Subsequent hospital visit by physician Hoa Dias Pat Schedule HOA Dias Pre-Admit Testing Comment on above: Pre-op testing (Prim edil Dx) Start: 04-29-2024 End: 04-29-2024 Bamboo flowsheet Romelia Mcclain [employer] Work Phone: [facility] Start: 04-29-2024 End: 04-29-2024 Bamboo flowsheet Romelia Mcclain [employer] Work Phone: [facility] Start: 04-29-2024 End: 04-29-2024 Office outpatient visit 10 minutes Romelia Mcclain [employer] Work Phone: [facility] Comment on above: Left knee pain, unsp ecified chronicity (Primary Dx); Arthritis of left knee Start: 04-29-2024 End: 04-29-2024 ambulatory ROMELIA MCCLAIN Not Available Start: 04-15-2024 End: 04-15-2024 Bamboo flowsheet Romelia Mcclain [employer] Work Phone: [facility] Start: 04-15-2024 End: 04-15-2024 Bamboo flowsheet Romelia Keith Gonzálezondina [employer] Work Phone: [facility] Start: 04-15-2024 End: 04-15-2024 Office outpatient visit 25 minutes Romelia Keith Sarahi [employer] Work Phone: [facility] Comment on above: Left knee pain, unsp ecified chronicity (Primary Dx); Arthritis of left knee Start: 04-15-2024 End: 04-15-2024 ambulatory ROMELIA Keith APLING Not Available Start: 03-20-2024 Non-patient / Non-visit MD Viky Stanford Work Phone: [facility] Gastroenterology Work Phone: Start: 03-20-2024 End: 03-20-2024 Admission to same day surgery center MD Viky Stanford Work Phone: [facility] Work Phone: Start: 03-20-2024 End: 03-20-2024 ambulatory MD Viky Stanford Work Phone: [facility] Work Phone: Start: 03-18-2024 End: 03-18-2024 ambulatory ROMELIA Keith APLING Not Available Start: 03-17-2024 Preoperative state MD Viky bliss Work Phone: [facility] Start: 03-16-2024 End: 03-16-2024 ambulatory ROMELIA Keith APLING Not Available Start: 03-16-2024 End: 03-16-2024 Patient encounter procedure MD Viky Stanford Work Phone: [facility] Work Phone: Start: 10-14-2023 End: 10-14-2023 ambulatory Ara Maier MD Facility:[facility] Start: 10-04-2023 End: 10-04-2023 ambulatory Imad Asaad Other [employer] Other Start: 10-04-2023 Telephone encounter Imad Asaad [facility] Start: 10-02-2023 Non-patient / Non-visit MD Viky Stanford Work Phone: [facility] Work Phone: Start: 10-02-2023 End: 10-02-2023 Admission to same day surgery center MD Viky Stanford Work Phone: [facility] Work Phone: Start: 10-02-2023 End: 10-02-2023 ambulatory MD Viky Stanford Work Phone: [facility] Work Phone: Start: 09-23-2023 End: 09-23-2023 ambulatory Viky Stanford Other [employer] Other Start: 09-23-2023 Telephone encounter Viky Stanford [facility] Start: 09-09-2023 End: 09-09-2023 ambulatory ROMELIA B APLING Not Available Start: 09-04-2023 End: 09-04-2023 ambulatory ROMELIA B APLING Not Available Start: 09-03-2023 End: 09-03-2023 ambulatory Viky Stanford Other [employer] Other Start: 09-03-2023 Telephone encounter Viky Stanford [facility] General Office Associate Start: 08-30-2023 End: 08-30-2023 ambulatory Viky Stanford Other [employer] Other Start: 08-30-2023 Office outpatient visit 15 minutes Viky Stanford [facility] Start: 08-30-2023 End: 08-30-2023 Patient encounter procedure MD Viky Stanford Work Phone: [facility]- Start: 08-23-2023 End: 08-23-2023 ambulatory Viky Stanford Other [employer] Other Start: 08-23-2023 Telephone encounter Viky Stanford [facility] Start: 08-21-2023 End: 08-21-2023 ambulatory Imad Asaad Other [employer] Other Start: 08-21-2023 Office outpatient ne w 45 minutes Imad Asaad [facility] Start: 08-21-2023 End: 08-21-2023 Patient encounter procedure MD Viky Stanford Work Phone: [facility] Gastroenterology Work Phone: Start: 07-15-2023 End: 07-15-2023 ambulatory Viky Stanford Other [employer] Other Start: 07-15-2023 Office outpatient visit 15 minutes Viky Stanford [facility] Start: 07-15-2023 Telephone encounter Viky Stanford [facility] Start: 07-15-2023 End: 07-15-2023 Patient encounter procedure MD Viky Stanford Work Phone: [facility] Work Phone: Start: 07-06-2023 End: 07-06-2023 Patient encounter procedure MD Viky Stanford Work Phone: [facility] Luis Alfredo Work Phone: Start: [...] laboratory examination DR MASSIMO MATTHEWS . [facility] Start: 07-24-2022 End: 07-24-2022 ambulatory [...] Start: 04-20-2022 End: 04-21-2022 ambulatory ARIADNA NOLAN Facility:[facility] Start: 04-09-2022 End: 04-10-[address] VIKY STANFORD Facility: Start: 02-27-2022 End: 02-28-2022 ambulatory DEFAULT PHYSICIAN Facility:[facility] Start: 02-22-2022 End: 02-23-[address] MASSIMO MATTHEWS . Facility: Start: 12-06-2021 ambulatory MICHELE SALDAÑA . Facility:[facility] Start: 11-30-2021 End: 12-01-[address] MASSIMO MATTHEWS . Facility: Start: 10-25-2020 Pre-procedure evaluation check Viky Stanford Other [employer] Other Procedures Date Procedure Procedure Detail Performing Clinician Start: 06-26-2024 Ct pelvis w/o contrast material Echo Ham DO Work Phone: Start: 06-02-2024 Blood count complete auto&auto difrntl wbc Ling Rojas MD Work Phone: Start: 06-02-2024 Ecg routine ecg w/least 12 lds w/i&r Ling Rojas MD Work Phone: Start: 04-15-2024 Arthrocentesis aspir&/inj major jt/bursa w/o us Romelia Mcclain [employer] Work Phone: Start: 04-15-2024 Radiologic examination knee 3 views Danae a Sagar Mcclain [employer] Work Phone: Start: 03-20-2024 Colonoscopy MD Viky Stanford Work Phone: Start: 10-02-2023 Esophagogastroduodenoscopy MD Viky fox Work Phone: Start: 07-10-2017 Screening mammography Viky Stanford Other Start: 07-19-2016 General examination of patient Viky padilla Other Plan of Treatment Date Care Activity Detail Author Start: 04-23-2032 DTaP/Tdap/Td vaccine (2 - Td or Tdap) DTaP/Tdap/Td vaccine (2 - Td or Tdap) [facility] Start: 06-09-2024 End: 06-09-2024 Admission to same day surgery center 06/09/2024 7:30 AM EDT - 06/09/2024 9:30 [place] [address] [place] [address] Echo Ham, DO [address] [place], [place] [id number] RIGHT MINIMALLY INVASIVE SURGERY SACROILIAC JOINT FUSION POSTERIOR WITH SI BONE [facility] [place] Comment on above: RIGHT MINIMALLY INVA SIVE SURGERY SACROILIAC JOINT FUSION POSTERIOR WITH SI BONE Start: 06-09-2024 End: 06-09-2024 Anesthesia consultation 06/09/2024 7:30 AM ED[place] [address] [place] [address] Ricco Foote MD [address] [facility] [address] [place] [address] [facility] [place] Start: 06-09-2024 End: 06-09-2024 Arthrodesis sacroiliac joint percutaneous SACROILIAC JOINT FUSION POSTERIOR Chronic right SI joint pain 06/09/2024 7:30 AM EDT [facility] Start: 06-09-2024 Subsequent hospital visit by physician 06/09/2024 7:30 AM EDT Hospital [place] [address] [place] [address] Echo Ham, DO [address] [place] [place] [id number] [facility] Start: 05-27-2024 Annual Wellness Visi t (Medicare) Annual Wellness Visit (Medicare) [facility] Start: 04-29-2024 End: 04-29-2024 Patient encounter procedure [facility] Comment on above: Left knee pain, unsp ecified chronicity (Primary Dx); Arthritis of left knee Start: 04-15-2024 End: 04-15-2024 Patient encounter procedure 04/15/2024 11:15 AM EDT Office Visit [facility] [address] [facility] [address] [place] [id number] Romelia Mcclain NP [address] [facility] [address] [place] [address] Left knee pain, unspecified chronicity (Primary Dx) [facility] Comment on above: Left knee pain, unsp ecified chronicity (Primary Dx) Start: 04-12-2024 COVID-19 Vaccine ( season) COVID-19 Vaccine ( season) [facility] Start: 04-12-2024 Influenza vaccination Influenza Vacc ine (#1) [facility] Start: 03-20-2024 [facility] Start: 10-02-2023 [facility] Start: 2001 Screening for osteoporosis DEXA (modify frequency per FRAX score) [facility] Start: 1964 Hepatitis C screening Hepatitis C sc reen [facility] Start: 1958 Depression Screen Depression Screen [facility] Patient Education Hemorrhoids (D C) Know your Meds [facility] Work Phone: Immunizations Immunization Date Immunization Notes Care Provider Fa cili 04-16-2023 influenza virus vaccine, unspecified formulation Romelia Claudioondina ANDREW Work Phone: [facility] 05-17-2022 zoster vaccine, live Viky Stanford Other [facility] 04-23-2022 influenza virus vaccine, split virus (incl. purified surface antigen) Viky Stanford Other [facility] Other 04-23-2022 influenza virus vaccine, unspecified formulation MD Viky Stanford Work Phone: [facility] 04-23-2022 pneumococcal polysaccharide vaccine, 23 valent Viky Stanford Other [facility] 04-23-2022 tetanus toxoid, adsorbed Viky Stanford Other [facility] 05-25-2021 influenza virus vaccine, split virus (incl. purified surface antigen) Viky Stanford Other [facility] Other 05-25-2021 influenza virus vaccine, unspecified formulation MD Viky Stanford Work Phone: [facility] 10-18-2020 COVID-19 Vaccine Moderna - Documentation Purposes Only Viky Stanford Other [facility] 09-19-2020 COVID-19 Vaccine Moderna - Documentation Purposes Only Viky Stanford Other [facility] 04-16-2020 influenza virus vaccine, split virus (incl. purified surface antigen) Viky Stanford Other [facility] [employer] Other 04-16-2020 influenza virus vaccine, unspecified formulation MD Viky Stanford Work Phone: [facility] 05-12-2019 influenza virus vaccine, split virus (incl. purified surface antigen) Viky Stanford Other [employer] Other 05-12-2019 influenza virus vaccine, unspecified formulation MD Viky Stanford Work Phone: [facility] 04-18-2018 influenza virus vaccine, split virus (incl. purified surface antigen) Viky Stanford Other [facility] [employer] Other 04-18-2018 influenza virus vaccine, unspecified formulation MD Viky Stanford Work Phone: [facility] 07-10-2017 pneumococcal conjuga te vaccine, 13 valent iVky Stanford Other [facility] 04-18-2017 influenza virus vaccine, split virus (incl. purified surface antigen) Viky Stanford Other [facility] [employer] Other 04-18-2017 influenza virus vaccine, unspecified formulation MD Viky Stanford Work Phone: [facility] 05-09-2016 influenza virus vaccine, split virus (incl. purified surface antigen) Viky Stanford Other [facility] [employer] Other 05-09-2016 influenza virus vaccine, unspecified formulation MD Viky Stanford Work Phone: [facility] 05-27-2013 tetanus and diphther ia toxoids, adsorbed, preservative free, for adult use (5 Lf of tetanus toxoid and 2 Lf of diphtheria toxoid) Viky Stanford Other [facility] 12-24-2011 pneumococcal polysaccharide vaccine, 23 valent Viky Stanford Other [facility] Payers Date Payer Category Payer Self-pay 2022 Unknown 2011 Medicare [id number] 1959 Medicare [id number] 1959 Unknown [id number] 1945 Unknown [id number] 2.16.8 40.1.388207.3.579.2.647 1945 Unknown [id number] 2.16.8 40.1.444715.3.579.2.647 1945 Unknown [id number] 2.16.84 0.1.139682.3.579.2.593 1945 Unknown [id number] 2.16.84 0.1.179495.3.579.2.593 1945 Unknown [id number] 2.16.84 0.1.349021.3.579.2.593 1945 Unknown [id number] 2.16.84 0.1.061778.3.579.2.593 1945 Unknown [id number] 2.16.84 0.1.089868.3.579.2.593 1945 Unknown [id number] 2.16.84 0.1.199057.3.579.2.593 1945 Unknown [id number] 2.16.84 0.1.868408.3.579.2.593 1945 Unknown [id number] 2.16.84 0.1.300652.3.579.2.593 1945 Unknown [id number] 2.16.84 0.1.487206.3.579.2.593 1945 Unknown [id number] 2.16.84 0.1.624985.3.579.2.593 1945 Unknown [id number] 2.16.84 0.1.922716.3.579.2.593 1945 Unknown [id number] 2.16.84 0.1.002105.3.579.2.593 1945 Unknown [id number] 2.16.84 0.1.858446.3.579.2.593 1945 Unknown [id number] 2.16.84 0.1.256734.3.579.2.593 1945 Unknown [id number] 2.16.84 0.1.660461.3.579.2.1259 1945 Unknown [id number] 2.16.84 0.1.650777.3.579.2.1259 1945 Unknown [id number] 2.16.84 0.1.047659.3.579.2.1259 1945 Unknown [id number] 2.16.84 0.1.373532.3.579.2.1259 1945 Unknown [id number] 2.16.84 0.1.333421.3.579.2.1259 1945 Unknown [id number] 2.16.84 0.1.365855.3.579.2.1259 1945 Unknown [id number] 2.16.84 0.1.642145.3.579.2.1259 1945 Unknown [id number] 2.16. 840.1.862744.3.579.2.175 1945 Unknown [id number] 2.16. 840.1.937609.3.579.2.175 1945 Unknown [id number] 2.16.8 40.1.256403.3.579.2.176 1945 Unknown [id number] 2.16. 840.1.614637.3.579.2.196 1945 Unknown [id number] 2.16. 840.1.604867.3.579.2.196 1945 Unknown [id number] 2.16. 840.1.075303.3.579.2.196 1945 Unknown [id number] 2.16. 840.1.081939.3.579.2.196 Medicare Medicare Outpatient [id number] Unknown [id number] 2.16.8 40.1.178313.3.579.2.531 Social History Date Type Detail Facility Unknown if ever smoked [facility] Other Start: 03-16-2024 End: 06-02-2024 Sex Assigned At [facility] [employer] Other Start: 12-31-2022 End: 10-02-2023 Tobacco smoking status NHIS Never smoked tobacco (finding) [facility] Start: 1945 Sex Assigned At Female F [facility] Start: 12-31-2022 End: 06-02-2024 Tobacco use and exposure Smokeless tobacco non-user [facility] Start: 03-16-2024 End: 06-02-2024 Alcoholic beverage intake Current drinker of alcohol (finding) [facility] Start: 03-16-2024 End: 06-02-2024 History of Social function [facility] Physical abuse Denies [place] [facility] Start: 06-02-2024 Alcohol Comment occasioally only [employer] Start: 1945 Sex assigned at Not on file N [facility] Start: 06-07-2024 Gender identity Identifies as female gender (finding) [employer] Start: 12-31-2022 Alcohol Comment 5-6x/year [facility] Procedure Code Equipment Code Equipment Origin al Text Equipment Identifier Dates Joint Sacroiliac 11.5x50 [facility] [employer] - [id number] Start: 06-09-2024 Joint Sacroiliac 11.5x35 [facility] [employer] - [id number] Start: 06-09-2024 Joint Sacroiliac 11.5x35 [facility] [employer] - [id number] Start: 06-09-2024 Goals Date Patient Goal [...] at the surgery center C entrance) on ___73-29[birth year]84 by ____0530-0600am . Please stop any blood [...] drive you home after your procedure. 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 04-15-2024 History of Present illness Narrative Associated [...] heat, biofreeze, lidocaine roll, tyl, XR [facility] 04/15/24 Objective Left Knee Exam Tests Jil: [...] in 2 weeks. documented in this encounter [facility] 03-20-2024 Procedure note [facility] 10-02-2023 Procedure note [facility] 08-30-2023 Evaluation note Encounter Date [...] try OTC ones in meantime. Referral placed. [facility] Other 01-10-2024 Evaluation note* Encounter Date Diagnosis Assessment Notes Treatment Notes Treatment Clinical Notes Aug, GERD (gastroesophageal reflux disease) (ICD-10 - K21.9) Aug, Chronic diarrhea (ICD-10 - K52.9) Patient reports that her last colonoscopy was at the [facility] about 11 years ago and that she can not remember who preformed the procedure Aug, Abdominal pain (ICD-10 - R10.9) Aug, Weight loss, unintentional (ICD-10 - R63.4) Aug, Change in bowel habits (ICD-10 - R19.4) Lizbeth is advised to have a colonoscopy ordered, scheduled and prep instructions given today Risks and benefits of procedure explained to patient; patient verbalizes understanding. [facility] Other 12-04-2023 Evaluation note* Encounter Date Diagnosis [...] (ICD-10 - M81.0) Due for Dexa 08/2023 [facility] Other 02-16-2023 NoteCONSULTATION CONSULTATION DATE: 09/27/2022 HISTORY OF PRESENT ILLNESS: This is a 76-year-old female who returns to the clinic status post LES on 09/11/2022. The patient states she was afforded between 50-60% relief. Depending on her physical activity, determines her level of comfort. 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 lifting greatly aggravate her [...] Patient is in agreement with this plan.[id number] NoteCONSULTATION CONSULTATION DATE: 09/04/2022 HISTORY OF PRESENT [...] patient understands and would like to proceed.[facility] [id number] NoteCONSULTATION CONSULTATION DATE: 07/11/2022 HISTORY OF PRESENT [...] followed up in the clinic post procedure.[facility] [id number] NoteCONSULTATION PROCEDURE DATE: 07/11/2022 PREOPERATIVE DIAGNOSIS: Bilateral [...] will be followed up in the clinic.[facility] 06-06-2022 NoteCONSULTATION CONSULTATION DATE: 06/06/2022 [...] pain returning. 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 The patient has not seen a step down nurse in the past. REVIEW OF SYSTEMS, PAST [...] mg q.h.s. A referral to rheumatology near [place] will be sent on her behalf and I highly encouraged her to seek consultation, particularly since she has a familial history of autoimmune diseases. The patient agrees with the plan of care and will be followed up in the office in three months' time. [facility] Signed and Approved by: MICHELE SALDAÑA . 03/02/2022 14:16:00[facility]04-21-2022 NoteCONSULTATION Consultation Date:11/30/2021 PREOPERATIVE DIAGNOSIS: Right gluteal [...] will be followed up in the office. [facility] Signed and Approved by: MICHELE SALDAÑA . 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 Lying down and using heat decrease her pain. Prior to the procedure, she was in a state of acute pain and was placed on a short term course of [place] 5/325 b.i.d. p.r.n. Patient states she only [...] of care and would like to proceed. [facility] Signed and Approved by: MICHELE SALDAÑA . 12/06/2021 16:15:00[facility] noteNo InformationNort [employer] Other Evaluation noteNo assessment information available [facility] Work Phone: Evaluation note* Diagnosis Onset Date Resolution Status Lumbar spondylosis acute Preoperative clearance acute Situational depression acute [facility] Work Phone: Evaluation note* Diagnosis Pre-op testing- Primary Preoperative examination, unspecified Chronic right SI joint pain Disorders of sacrum [facility] Diagnosis Sacroiliitis (HCC) Sacroiliitis, not elsewhere classified documented in this encounter [facility] note* Diagnosis Left knee pain, unspecified chronicity- Primary Arthritis of left knee documented in this encounter [facility] Healthcare[facility] note* Diagnosis Left knee pain, unspecified chronicity- Primary Arthritis of left knee documented in this encounter [facility] Author Sunny Torres [facility] October 02, 2023 8:54am Note Date/Time October 02, 2023 8:54am [facility] [address] [place] [address] Gastroenterology H&P Signed Patient: Arianne Murdock MR#: [id number] : 1945 Acct:[id number] Age/Sex: 78 / F Adm Date: 4 [...] signed by Sunny Torres MD> 10/02/[address] [facility] Work Phone: History and physical note Author Sunny Torres [facility] March 20, 2024 8:43am Note Date/Time March 20, 2024 8:4 3am [facility] [address] [place] [address] Gastroenterology H&P Signed Patient: Arianne Murdock MR#: [id number] : 1945 Acct:[id number] Age/Sex: 78 / F Adm Date: 4 [...] <Electronically signed by Sunny Torres MD> 03/20/24842 [facility] Work Phone: History general Narrative - [...] back issues 05/2006 Hospitalization History shoulder pain 1981 Hospitalization History migraines 1992 [facility] Other Hospital Discharge instructions Additional Instructions DISCHARGE [...] NOT operate machinery such as power tools, [employer] mowers, snow blowers, sewing machines, etc. for [...] up in the office - Office number [phone]. [facility] Work Phone: Summary Purpose Family History No [...] Chronic diarrhea (K5 2.9) Referral Organization [facility] Re-APP pipo Referring Provider First Name Viky Referring Provider Last Name Abdoulaye Referring Provider Specialty Family Medi cine Referred Organization [facility] Gastroenterdeisy gy Referred Address [address] [facility] [address] ,[place], [place],[address] Referred Provider Specialty Gastroentero logy Referral Priority Routine Reason *FU 09/06 R foot p ain Diagnosis 1 Pain of left great t oe (M79.675) Referral Organization [facility] Re-APP pipo Referring Provider First Name Viky Referring Provider Last Name Abdoulaye Referring Provider Specialty [facility] Referred Organization [facility] Referred Provider Odin Chong Referred Address [address] [place], [place],[address] Referred Provider Specialty Podiatry - S urgical Chiropody Referral Priority Routine General Notes Shefali Carroll 12:44:49 PM >received today, notes locked, ins attached, referral faxed Specialty Diagnoses / Procedures Referred By Fabián martinez Referred To Contact Radiology Diagnoses Sacroiliitis (HCC) Procedures CT PELVIS WO CONTRAST Additional Contrast? None Ham, Echo Mir, DO [address] [place] [address] Referral ID Status Reason Start Date Expiration Date Visits Re quested Visits Authorized [id number] Closed 06/24/2024 06/24/2025 1 1 Specialty Diagnoses / Procedures Referred By Fabián martinez Referred To Contact Orthopaedic Surgery Diagnoses Arthritis of left knee Procedures L Inj/Asp: L knee Romelia Mcclain, BRASS PLATER [address] [place] [address] Referral ID Status Reason Start Date Expiration Date Visits Re quested Visits Authorized [id number] Closed 04/15/2024 10/12/2024 1 1 Chief Complaint [...] and content) DATE CREATED AUTHOR 05/09/2022 [facility] DATE CREATED AUTHOR AUTHOR'S ORGANIZ ATION 11/17/2022 [facility] DATE CREATED AUTHOR AUTHOR'S ORGANIZ ATION 04/01/2024 [facility] DATE CREATED AUTHOR AUTHOR'S ORGANIZ ATION 05/01/2024 [facility] EPIC DATE CREATED AUTHOR AUTHOR'S ORGANIZ ATION 06/14/2024 [facility] DATE CREATED AUTHOR AUTHOR'S ORGANIZ ATION 06/30/2024 [facility] DATE CREATED AUTHOR AUTHOR'S ORGANIZ ATION 08/07/2024 [facility] REASON FOR VISIT (unrecogniz ed section and content) Specialty Diagnoses / Procedures Referred By Contac t Referred To Contact Radiology Diagnoses Sacroiliitis (HCC) Procedures CT PELVIS WO CONTRAST Additional Contrast? None Echo Ham DO [address] [place] [address] Referral ID Status Reason Start Date Expiration Date Visits Re quested Visits Authorized [id number] Closed 06/24/2024 06/24/2025 1 1 Reason Comments [...] Provider Act cara Start: March 20, 2024 Manager Analysis Relationship Specialty Start Date End Date Viky Stanford MD [address] [place] [address] PCP - General Family Medicine 06/02/24 Manager Analysis Relationship Specialty Start Date End Date Viky Stanford MD [address] [place] [address] PCP - General Family Medicine 06/02/24 Manager Analysis Relationship Specialty Start Date End Date Viky Stanford MD [address] [place] [address] PCP - General Family Medicine 12/31/22 Manager Analysis Relationship Specialty Start Date End Date Viky Stanford MD [address] [place] [address] PCP - General Family Medicine 12/31/22 Manager Analysis Relationship Specialty Start Date End Date Viky Stanford MD [address] [place] [address] PCP - General Family Medicine 12/31/22 Manager Analysis Relationship Specialty Start Date End Date Viky Stanford MD [address] [place] [address] PCP - General Family Medicine 12/31/22 FOR [...] BE BASED ON THE PRIMARY CLINICAL RECORDS. [employer] provides no warranty or guarantee of the accuracy or completeness of information in this document.
--- NOTE | 2024-09-03 11:22 | P.CN_ITS ---
Consult Note: HPI Data of Consult Patient: known to practice within the last 3 years Requesting Physician: Melissa Soni NP Primary Care Provider: Patricia Nicolas MD Consult Narrative Reason for consult: f/u Narrative: Arianne Ko a pleasant 78 year old female presents for evaluation of pain post lumbar and SIJ fusion. at last visit she was placed on prednisone 5mg daily, has 1 day remaining, and is now reporting >90% improvement in pain and functional improvement. Pain 0/10 increasing to 1/10, no longer utilizing norco or baclofen. no falls or injury. cc:: CC: Melissa Soni NP Review of Systems ROS Status of ROS 10 or more systems reviewed and unremark able except as noted in history and below [facility] Medical History DDD (degenerative disc disease) Postoperative pain ?G89.18 - Other acute postprocedural pain (ICD-10) Encounter for long-term opiate analgesic use ?Z79.891 - adjunct faculty for medical terminology (current) use of opiate analgesic (ICD-10) Sacroiliac joint pain ?M53.3 - Sacrococcygeal disorders, not elsewhere classified (ICD-10) Sacroiliac joint dysfunction of right side ?M53.3 - Sacrococcygeal disorders, not elsewhere classified (ICD-10) Muscle spasm ?M62.838 - Other muscle spasm (ICD-10) Bilateral sacroiliitis ?M46.1 - Sacroiliitis, not elsewhere classified (ICD-10) Lumbar radiculopathy ?M54.16 - Radiculopathy, lumbar region (ICD-10) Lumbar spondylosis ?M47.816 - Spondylosis without myelopathy or radiculopathy, lumbar region (ICD-10) Chronically on opiate therapy ?Z79.891 - correction (current) use of opiate analgesic (ICD-10) Osteoporosis ?M81.0 - Age-related osteoporosis without current pathological fracture (ICD-10) Primary osteoarthritis, left ankle and foot ?M19.072 - Primary osteoarthritis, left ankle and foot (ICD-10) Bunionette of left foot ?M21.622 - Bunionette of left foot (ICD-10) Hallux valgus (acquired), left foot ?M20.12 - Hallux valgus (acquired), left foot (ICD-10) Back pain ?M54.9 - Dorsalgia, unspecified (ICD-10) Arthritis ?M19.90 - Unspecified osteoarthritis, unspecified site (ICD-10) Vertigo ?R42 - Dizziness and giddiness (ICD-10) Headache ?R51.9 - Headache, unspecified (ICD-10) Migraine ?G43.909 - Migraine, unspecified, not intractable, without status migrainosus (ICD-10) Multiple fractures ?T07.XXXA - Unspecified multiple injuries, initial encounter (ICD-10) Microscopic colitis ?K52.839 - Microscopic colitis, unspecified (ICD-10) Hiatal hernia ?K44.9 - Diaphragmatic hernia without obstruction or gangrene (ICD-10) Syncopal episodes (2019) ?R55 - Syncope and collapse (ICD-10) Osteopenia ?M85.80 - Other specified disorders of bone density and structure, unspecified site (ICD-10) Osteoarthritis ?M19.90 - Unspecified osteoarthritis, unspecified site (ICD-10) Neck pain ?M54.2 - Cervicalgia (ICD-10) Low back pain ?M54.50 - Low back pain, unspecified (ICD-10) Heartburn ?R12 - Heartburn (ICD-10) Acid reflux ?K21.9 - Gastro-esophageal reflux disease without esophagitis (ICD-10) Surgical History History of bunionectomy ?Z98.890 - Other specified postprocedural states (ICD-10) History of esophagogastroduodenoscopy (EGD) ?Z98.890 - Other specified postprocedural states (ICD-10) History of colonoscopy ?Z98.890 - Other specified postprocedural states (ICD-10) History of carpal tunnel release ?Z98.890 - Other specified postprocedural states (ICD-10) S/P cataract extraction and insertion of intraocular lens ?Z98.49 - Cataract extraction status, unspecified eye (ICD-10) ?Z96.1 - Presence of intraocular lens (ICD-10) History of repair of rotator cuff ?Z98.890 - Other specified postprocedural states (ICD-10) H/O radiofrequency ablation (RFA) of nerve of lumbar spine ?Z98.890 - Other specified postprocedural states (ICD-10) H/O shoulder surgery ?Z98.890 - Other specified postprocedural states (ICD-10) History of ear, nose, and throat (ENT) surgery ?Z98.890 - Other specified postprocedural states (ICD-10) H/O carpal tunnel repair ?Z98.890 - Other specified postprocedural states (ICD-10) H/O wrist surgery ?Z98.890 - Other specified postprocedural states (ICD-10) H/O section ?Z98.891 - History of uterine scar from previous surgery (ICD-10) Family History Other Family history of colon cancer Family history of diabetes mellitus Family history of heart disease Family history of ovarian cancer Family history of prostate cancer Family history of throat cancer Family history of uterine cancer Social History Within the past year, how often did you have a drink containing alcohol: monthly or less Smoking status: Never smoker Non-prescribed substance use: denies use Previous occupational history: retired Known occupational exposures/hazards: No Highest level of school completed/degree received: some college, no degree Little interest or pleasure in doing things: not at all Feeling down, depressed, or hopeless: not at all Meds Home Medications and Allergies Home Medications ?Medication ?Instructions ?Recorded ?Confirmed ?Type denosumab 60 mg/mL subcutaneous 60 mg subcut .[id number] 04/10/23 07/27/24 History syringe (Prolia) geriatric multivitamin-min 1 cap PO DAILY 04/10/23 07/27/24 History magnesium 200 mg tablet 400 mg PO BID 04/10/23 07/27/24 History pantoprazole 40 mg tablet,delayed 40 mg PO DAILY 07/24/23 07/27/24 History release baclofen 10 mg tablet See Rx Instructions .Route 07/15/24 07/27/24 Rx .COMPLEX #90 tabs hydrocodone 7.5 mg-acetaminophen 1 tab PO TID PRN pain #90 tabs 07/15/24 07/27/24 Rx 325 mg tablet pregabalin 75 mg capsule (Lyrica) 75 mg PO TID #90 caps 07/15/24 07/27/24 Rx Allergies Allergy/AdvReac Type Severity Reaction Status Date / Time No Known Drug Allergies Allergy Verified 07/31/24 14:20 Exam Back & Pelvis Lumbar spine/lower back: ROM limited and straight leg raise negative bilaterally; no pain with ROM Sacroiliac joints: SI joint(s) abnormal (tenderness over PSIS left >right) Assessment and Plan Assessment and Plan (1) Lumbar postlaminectomy syndrome: Plan DC norco and baclofen pt has 1 day remaining on prednisone, instructed to call our office should her pain worse f/u PRN
== END 2024-09-03 10:58 | disposition home or self-care (01) ==
LOC: PM 10:57
PROVIDERS: PCP Family Medicine; Visit Provider Nurse Practitioner
DX: M96.1 Postlaminectomy syndrome, not elsewhere classified (principal)
CPT/HCPCS: G0463

== ENCOUNTER 2024-09-22 08:35 | Outpatient (OUT) | payer MEDICARE, SELFPAY ==
--- NOTE | 2024-09-22 08:38 | XR_ITS ---
The [address] [address] Patient Name: LOBO MURDOCK MRN: [id number] date: 1945 Sex: F Assigned Patient Location: [facility] Current Patient Location: Accession/Order Number: [id number] Exam Date: 09/22/2024 08:40 Report Date: 09/23/2024 10:17 At the request of: DANNY MEDINA Procedure: XR foot LT min 3V PROCEDURE: XR foot LT min 3V HISTORY: Left Foot Pain COMPARISON: XR foot left 03/24/2024 FINDINGS: BONES:Mechanical fusion the first metatarsophalangeal joint via dorsal plate and screws. Prior bunionectomy lateral side of 5th metatarsal head. Stable flattening of plantar arch. SOFT TISSUES:No visible soft tissue swelling. EFFUSION:None visible. OTHER: Negative. XR/XR foot LT min 3V IMPRESSION: 1. Stable surgical changes without evidence of hardware failure or change in alignment. Electronically authenticated by: IRINA VÁZQUEZ Date: 09/23/2024 10:17
== END 2024-09-22 08:36 | disposition home or self-care (01) ==
LOC: RAD 08:35
PROVIDERS: PCP Family Medicine; Visit Provider Podiatrist Foot & Ankle Surgery
DX: M79.672 Pain in left foot (principal); M24.675 Ankylosis, left foot
CPT/HCPCS: 73630

== ENCOUNTER 2024-10-02 07:38 | Outpatient (RCR) | payer MEDICARE, SELFPAY ==
[2024-10-01 14:09] LABS: Anion Gap 12.4; BUN Creatinine Ratio 21.4; Calcium 9.5 mg/dL (8.5-10.1); Carbon Dioxide 28.3 mmol/L (21.0-32.0); Chloride 106 mmol/L (98-107); Estimated GFR (African America >60 (>=60 mL/min/1.73m^2); Estimated GFR (Non-African Ame 52 (>=60 mL/min/1.73m^2); Glucose 87 mg/dL (74-106); Potassium 3.7 mmol/L (3.5-5.1); Sodium 143 mmol/L (136-145)
[2024-10-02 08:50] VITALS: BP 148/78; PULSE 94; TEMP 36.9; O2SAT 96
[2024-10-02] MEDS: DENOSUMAB 60 MG/ML SYRINGE SUBQ (09:10)
== END 2024-10-09 23:59 | disposition home or self-care (01) ==
LOC: INF 07:38
PROVIDERS: PCP Family Medicine; Visit Provider Family Medicine
DX: M81.0 Age-related osteoporosis without current pathological fracture (principal); M54.50 Low back pain, unspecified; M85.88 Other specified disorders of bone density and structure, other site; M51.369 Other intervertebral disc degeneration, lumbar region without mention of lumbar back pain or lower extremity pain; M41.86 Other forms of scoliosis, lumbar region
CPT/HCPCS: 36415; 72110; 80048; 82306; 96374; J0897

== ENCOUNTER 2024-10-02 09:34 | Outpatient (OUT) | payer MEDICARE, SELFPAY ==
--- NOTE | 2024-10-02 | XR_ITS ---
The [place] [id number] Patient Name: LOBO MURDOCK MRN: [id number] date: 1945 Sex: F Assigned Patient Location: Current Patient Location: Accession/Order Number: [id number] Exam Date: 10/02/2024 12:06 Report Date: 10/02/2024 12:14 At the request of: VERONICA CARCAMO MD Procedure: XR lumbar spine min 4V LUMBAR SPINE WITH FLEXION-EXTENSION VIEWS - 4 views: CLINICAL HISTORY: Chronic back pain. Prior lower lumbar and right SI joint fusion COMPARISON: 06/26/2024 Weightbearing AP as well as lateral views in neutral, flexion and extension were obtained. There is osteopenia. There is dextroscoliotic curvature. There is prior laminectomy and fusion at L4-5. There are 3 screws traversing the right SI joint. The hardware appears intact and unchanged from the comparison. There is continued anterolisthesis of L4 on L5 of approximately 7 mm. This is similar to the prior. Alignment is does not change significantly with flexion or extension. There are no developing developing fractures. Multilevel disc space narrowing is seen. There is mild endplate spurring and facet hypertrophy. The left SI joint is intact. There is minimal atherosclerotic plaque at the aorta. XR/XR lumbar spine min 4V IMPRESSION: OSTEOPENIA, SCOLIOSIS, POSTOPERATIVE AND DEGENERATIVE CHANGES WHICH ARE SIMILAR TO THE COMPARISON. Impression dictated by: Kathy Gillis M.D.10/02/2024 12:14 PM Dictation Location: [employer] Electronically authenticated by: [id number] Y Date: 10/02/2024 12:14
--- OUTSIDE RECORDS SUMMARY | 2024-10-02 09:42 | XMS_ITS | CCD ---
Author Organization [facility] Care Team Providers Care Chair Car Driver Name Role Phone PHYSICIAN, DEFAULT Admitting Unavailable [...] Care Provider MD Sunny Torres Attending Provider [phone] Viky Stanford Primary Care Unavailable Asaad, Imad [...] Unavailable Viky Stanford MD Primary Care Provider [phone] HAM, ECHO Mir Admitting Unavailabl e HAM, ECHO Mir Attending Unavailabl e VIKY STANFORD Primary Care Unavailable HAM, ECHO Mir Referring Unavailabl e VIKY STANFORD Primary Care Unavailable HAM, ECHO Mir Attending Unavailabl e HAM, ECHO Mir Referring Unavailabl e VIKY STANFORD Primary Care Unavailable Viky Stanford MD Primary Care Provider [phone] Darrion DIAZ, Ara Loomis Attending Unavailable Darrion DIAZ, Ara Loomis Attending Unavailable Gitorinitis , Ara Loomis Attending Unavailable Giedraitis , Ara Loomis Attending Unavailable Allergies Allergy Classification Reported Allergen(s) Allergy Type Date of Onset Reaction(s) Facility (8 sources) Calcitonin ([place]) *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 Propensity to adverse reactions Comment:severe weakness [facility] Other (3 sources) calcitonin; Translations: [calcitonin] Propensity to adverse reactions 4 Other (See Comments) [facility] (1 source) Fish Oils Drug Allergy 4 Other (See Comments) [facility] Medications Current Medications Medication Drug [...] TAB PO Daily March 13, 2024 12:00am Uofazmy-Wepjdlmend-Lukvfln D (Citracal +D3) 250-107-500 MG-MG-UNIT chewable tablet [...] Active Subcutaneous for 0 *Pick strength-form from [facility] for eRX* Aug, Active diclofenac sodium [...] day for 0 days *Pick strength-form from [employer] for eRX* Oct, Active Magnesium 400 MG capsule as directed Orally Active magnesium oxide 400 mg oral tablet (1 source) Start: 03-13-2024 take 1 tablet by mouth once daily Magnesium Oxide Active 400 MG PO Daily March 13, 2024 12:00am [employer] tablet with a meal Orally Once a day; Note: Source Status: Taking*Pick strength-form from [employer] for eRX*; Provider: Abdoulaye Gomez ( ) Multiple Vitamin (8 sources) take 1 tablet by mouth once daily Multiple Vitamin 1 tablet Orally Once a day Active Multiple Vitamin (MULTIVITAMIN ADULT PO) (6 sources) take 1 capsule by mouth in the morning Multiple Vitamin (MULTIVITAMIN ADULT PO) Take 1 capsule by mouth in the morning. Active Skdpeyga-Jrii-Wm-Ca lcium-Mins (Daily Multiple For Women) 18 mg iron-400 mcg-500 mg Ca tablet (1 source) Start: 03-13-2024 take 1 tablet by mouth once daily Jzxbbwgv-Bmin-Mc-Ca lcium-Mins (Daily Multiple For Women) 18 mg [...] Other aftercare (8 sources) 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; Translations: [assisted (current) use [...] Quyen Ruffin MD 06/28/24 Final result Normal [facility] CT Pelvis WO contraston - Fusion at the right SI joint. No osseous fusion at this time. [facility] RIS CONSOLIDATED EXAMINATION: CT OF THE PELVIS [...] joint. No osseous fusion at this time. [facility] CT Pelvis WO contrastOrdered By: Quyen Ruffin on 06-28-2024 [employer] Work Phone: CT Pelvis WO contraston 06-12 Radiology Study observation (narrative) [facility] FLUORO FOR SURGICAL PROCEDUR ESon 06-09-2024 FLUORO FOR SURGICAL PROCEDURES Radiology exam is complete. No Radiologist dictation. Please follow up with ordering provider. Final result Normal [facility] EKG 12 LeadOrdered By: Carter Machuca on 06-03-2024 Atrial Rate 87 BPM [employer] Work Phone: P [place] 32 degrees [employer] Work Phone: P-R Interval 136 ms [facility] Work Phone: Q-T Interval 350 ms [facility] Work Phone: QRS Duration 74 ms [facility] Work Phone: QTc Calculation (Bazett) 421 ms [employer] Work Phone: R [place] 12 degrees [employer] Work Phone: T [place] 45 degrees [facility] Work Phone: Ventricular Rate 87 BPM [facility] [employer] Work Phone: [facility] Work Phone: EKG 12 Leadon 06-03-2024 Normal sinus rhythm Normal ECG No previous ECGs available [facility] Carter Urrutia, - 06/03/2024 Normal sinus rhythm Normal ECG No previous ECGs available [facility] [employer] CBC with Auto Differentialon 06-02-2024 Basophils (Bld) [#/Vol] 0.06 10*3/uL [facility] Basophils/100 WBC (Bld) 1 % 0 - 2 % [facility] Eosinophils (Bld) [#/Vol] 0.09 10*3/uL [employer] [facility] Eosinophils/100 WBC (Bld) 1 % 1 - 4 % [facility] Erythrocyte distribution width (RBC) [Ratio] 12.5 % 11.8 - 14.4 % [employer] [facility] Hematocrit (Bld) [Volume fraction] 41.5 % 36.3 - 47.1 % [employer] [facility] Hemoglobin (Bld) [Mass/Vol] 13.2 g/dL 11.9 - 15.1 g/dL [facility] Immature granulocytes (Bld) [#/Vol] 0.05 10*3/uL [facility] Immature granulocytes/100 WBC (Bld) 1 % High 0 [facility] Interpretation and review of laboratory results Abnormal [facility] Lymphocytes/100 WBC (Bld) 20 % Low 24 - 43 % [facility] Lymphocytes/100 WBC (Bld) 1.62 % [facility] MCH (RBC) [Entitic mass] 31.1 pg 25.2 - 33.5 pg [facility] MCHC (RBC) [Mass/Vol] 31.8 g/dL 28.4 - 34.8 g/dL [facility] MCV (RBC) [Entitic vol] 97.6 fL 82.6 - 102.9 fL [facility] Monocytes/100 WBC (Bld) 10 % 3 - 12 % [facility] Monocytes/100 WBC (Bld) 0.80 % [facility] Neutrophils/100 WBC (Bld) 67 % High 36 - 65 % [facility] Nucleated RBC/100 WBC (Bld) [Ratio] 0.0 % 0.0 per 100 WBC [facility] Platelet mean volume (Bld) [Entitic vol] 10.0 fL 8.1 - 13.5 fL [facility] Platelets (Bld) [#/Vol] 247 10*3/uL [facility] RBC (Bld) [#/Vol] 4.25 10*6/uL 3.95 - 5.1 1 m/uL [facility] Segmented neutrophils/100 WBC (Bld) 5.57 % [facility] WBC other (Bld) [#/Vol] 8.2 [facility] CBC with Diffon 06-02-2024 Abs. Basophil 0.06 k/uL Normal 0.00-0.20 [facility] Comment on above: Performed By: #### C DP #### [facility] [place] [address] Engineering Mathematician: Arpit Cruz MD Abs.Imm.Granulocyte 0.05 k/uL Normal 0.00-0.30 [facility] Comment on above: Performed By: #### C DP #### [place] [address] Engineering Mathematician: Arpit Cruz MD Abs.Neutrophil (Seg) 5.57 k/uL Normal 1.50-8.10 [facility] Comment on above: Performed By: #### C DP #### [place] [address] Engineering Mathematician: Arpit Cruz MD Basophils/100 WBC (Bld) 1 % Normal 0-2 [facility] Comment on above: Performed By: #### C DP #### [place] [address] Engineering Mathematician: Arpit Cruz MD Eosinophils (Bld) [#/Vol] 0.09 10*3/uL Normal 0.00-0.44 [facility] Comment on above: Performed By: #### C DP #### [place] [address] Engineering Mathematician: Arpit Cruz MD Eosinophils/100 WBC (Bld) 1 % Normal 1-4 [facility] Comment on above: Performed By: #### C DP #### [place] [address] Engineering Mathematician: Arpit Cruz MD Erythrocyte distribution width (RBC) [Ratio] 12.5 % Normal 11.8-14.4 [facility] Comment on above: Performed By: #### C DP #### [place] [address] Engineering Mathematician: Arpit Cruz MD Hematocrit (Bld) [Volume fraction] 41.5 % Normal 36.3-47.1 [facility] Comment on above: Performed By: #### C DP #### [address] [address] Engineering Mathematician: Arpit Cruz MD Hemoglobin (Bld) [Mass/Vol] 13.2 g/dL Normal 11.9-15.1 [facility] Comment on above: Performed By: #### C DP #### [address] [address] Engineering Mathematician: Arpit Cruz MD Immature granulocytes/100 WBC (Bld) 1 % High 0 [facility] Comment on above: Performed By: #### C DP #### [address] [address] Engineering Mathematician: Arpit Cruz MD Lymphocytes (Bld) [#/Vol] 1.62 10*3/uL Normal 1.10-3.70 [facility] Comment on above: Performed By: #### C DP #### [address] [address] Engineering Mathematician: Arpit Cruz MD Lymphocytes/100 WBC (Bld) 20 % Low 24-43 [facility] Comment on above: Performed By: #### C DP #### [address] [address] Engineering Mathematician: Arpit Cruz MD MCH (RBC) [Entitic mass] 31.1 pg Normal 25.2-33.5 [facility] Comment on above: Performed By: #### C DP #### [address] [address] Engineering Mathematician: Arpit Cruz MD MCHC (RBC) [Mass/Vol] 31.8 g/dL Normal 28.4-34.8 [facility] Comment on above: Performed By: #### C DP #### [address] [address] Engineering Mathematician: Arpit Cruz MD MCV (RBC) [Entitic vol] 97.6 fL Normal 82.6-102.9 [facility] Comment on above: Performed By: #### C DP #### [address] [address] Engineering Mathematician: Arpit Cruz MD Monocytes (Bld) [#/Vol] 0.80 10*3/uL Normal 0.10-1.20 [facility] Comment on above: Performed By: #### C DP #### [address] [address] Engineering Mathematician: Arpit Cruz MD Monocytes/100 WBC (Bld) 10 % Normal 3-12 [facility] Comment on above: Performed By: #### C DP #### [address] [address] Engineering Mathematician: Arpit Cruz MD Neutrophil (Seg) 67 % High 36-65 [facility] Comment on above: Performed By: #### C DP #### [address] [address] Engineering Mathematician: Arpit Cruz MD NRBC Automated 0.0 per 100 WBC Normal 0.0 [facility] Comment on above: Performed By: #### C DP #### [address] [address] Engineering Mathematician: Arpit Cruz MD Platelet mean volume (Bld) [Entitic vol] 10.0 fL Normal 8.1-13.5 [facility] Comment on above: Performed By: #### C DP #### [address] [address] Engineering Mathematician: Arpit Cruz MD Platelets (Bld) [#/Vol] 247 10*3/uL Normal 138-453 [facility] Comment on above: Performed By: #### C DP #### [address] [id number] Engineering Mathematician: Arpit Cruz MD RBC (Bld) [#/Vol] 4.25 10*6/uL Normal 3.95-5.11 [facility] Comment on above: Performed By: #### C DP #### [facility] [address] [place] [address] Engineering Mathematician: Arpit Cruz MD WBC (Bld) [#/Vol] 8.2 10*3/uL Normal 3.5-11.3 [facility] Comment on above: Performed By: #### C DP #### [facility] [place] [facility] [address] [place] [address] Engineering Mathematician: Arpit Cruz MD XR Knee - left 3 [facility] Result: April 15, 2024 x-rays AP weight-bearing bilateral knees lateral and sunrise of the left knee demonstrate medial compartment narrowing bilateral knees left slightly more advanced than the right. Subchondral sclerosis is noted. Subchondral sclerosis is noted in the patellofemoral joint. No fractures detected. Impression: Osteoarthritis bilateral knees Echo Velazquez D.O. [employer] XR Knee - left 3 ViewsOrdere d By: Cullen Velazquez on 04-16-2024 [employer] Work Phone: No Panel Informationon 04-15 Romelia Mcclain NP 04/17/2024 6:43 AM L Inj/Asp: L knee on 04/15/2024 11:43 AM Indications: pain Details: 20 G needle, anterolateral approach Medications: 40 mg methylPREDNISolone acetate 40 MG/ML Procedure, treatment alternatives, risks and benefits explained, specific risks discussed. Consent was given by the patient. [employer] XR Knee - left 3 [facility] Study observation (narrative) [facility] Request for Lab Co rpon 03-20-2024 Pathology Request for Lab Dorothy Normal [facility] Comment on above: Order Comment: PATHO LOGY GI SPECIMEN Result Comment: See report. Scanned copy available in EMR. PERFORMED BY: [facility] [address] [place] [address] PATHOLOGIST [employer]NER HELENE LEON M.D. Performed By: #### P ATH TO [facility] #### [facility] [address] [id number] [facility] Guevara 10-02-2023 L Specimen: [id number] Received: 10/02/23 Status: SOUT Req Num: [id number] Spec Type: Surgical Subm Dr: Sunny Torres MD Tissues: A GASTRIC FOR HP (GASTRIC BX R/O H.PYLORI) B Colon Biopsy (RANDOM COLON BX R/O MICROSCO) Procedures: HE/4, Gross/Micro L4/2, H PYLORI Age/ Patient Sex Location Account Attending Physician Arianne Murdock 78/F [id number] Sunny Torres MD SPEC NUM: [id number] RECD: 10/02/23 STATUS: SOUT REQ NUM: [id number] TEO: 10/02/[address]: Sunny Torres MD ENTERED: 10/02/[address] [facility] [address]: SPEC TYPE: Surgical DEPT: S ORDERED: [...] date of and random colon ---- Specimen: [id number] Received: 10/02/23 Status: OJ Brice Num: [id number] Spec Type: Surgical Subm Dr: Sunny Torres MD Tissues: A GASTRIC FOR HP (GASTRIC BX R/O H.PYLORI) B Colon Biopsy (RANDOM COLON BX R/O MICROSCO) Procedures: HE/4, Gross/Micro L4/2, H PYLORI ---- Patient: Arianne Murdock [id number] (Continued) ---- Specimen: [id number] Received: 10/02/23 (Continued) Gross Description (Continued) Signed (signature on file) Patito Grimm MD 10/03/23 1430 ---- Specimen: [id number] Received: 10/02/23 Status: OJ Brice Num: [id number] Spec Type: Surgical Subm Dr: Sunny Torres MD Tissues: A GASTRIC FOR HP (GASTRIC BX R/O H.PYLORI) B Colon Biopsy (RANDOM COLON BX R/O MICROSCO) Procedures: HE/4, Gross/Micro L4/2, H PYLORI ---- Patient: Arianne Murdock [id number] (Continued) ---- Specimen: [id number] Received: 10/02/23 (Continued) Gross Description (Continued) biopsy are 2 galvan translucent soft tissue fragments, 0.3 and 0.6 cm in greatest dimensions. Entirely submitted in one cassette labeled B1. CPT Codes [id number] ---- ---- Specimen: [id number] Received: 10/02/23-1022 Status: OJ Brice Num: [id number] Spec Type: Surgical Subm Dr: Sunny Torres MD Tissues: A GASTRIC FOR HP (GASTRIC BX R/O H.PYLORI) B Colon Biopsy (RANDOM COLON BX R/O MICROSCO) Procedures: HE/4, Gross/Micro L4/2, H PYLORI ---- Patient: Arianne Murdock [id number] (Continued) ---- Signed (signature on file) Patito Grimm MD 10/03/23 1430 Normal [facility] CALCIUMon 10-03-2022 Calcium [Mass/Vol] 8.9 mg/dL Normal 8.5-10.1 [facility] Comment on above: Performed By: #### C VALERIO ADAMS #### [facility] [address] [place] [address] Dr. Dang Grimm CREATININEon 10-03-2022 Creatinine [Mass/Vol] 1.03 mg/dL Critically high 0.55-1.02 [facility] Comment on above: Performed By: #### C [place], [place] #### [facility] [address] [place], [place] [address] Dr. Dagn Grimm EGFR-AF SPANISH >60 Normal >=60 [facility] Comment on above: Performed By: #### C [place], [place] #### [facility] [address] [place], [place] [address] Dr. Dang Grimm EGFR-NON AF SPANISH 52 mL/min/1.73m2 Critically low >=60 [facility] Comment on above: Performed By: #### C [place], [place] #### [facility] [address] [place], [place] [address] Dr. Dang Grimm Covid-19 PCR ([facility] [place])on SARS-CoV-2 (COVID-19) RNA GENARO+probe Ql (Unsp spec) Not detected Normal NOT DETECTED [facility] Comment on above: Result Comment: This test is not yet approved or cleared by the [place] FDA. When there are no FDA-approved or cleared tests available, and other criteria are met, FDA can make tests available under an emergency access mechanism called an Emergency Use Authorization (EUA). The EUA for this test is supported by the [place] of Health and Human Service's (HHS's) declaration [...] SARS-CoV-2. Performed By: #### C VDTBH #### [facility] [address] [place], [place] [address] Dr. Dang Archer 04-20-2022 OCTAVIA PATTERN SPECKLED Normal [facility] Comment on above: Result Comment: [...] authority. Performed By: #### 1 0196 #### [facility] [address] OCTAVIA SCREEN 1:40 Normal <1:40,1:40 [facility] Comment on above: Result Comment: Test performed using MELCHOR IFA OCTAVIA Hep-2 Test, a pre-standardized assay designed for the qualitative and semi-quantitative detection of antinuclear antibodies. Performed By: #### 1 0196 #### [facility] [address] C REACTIVE PROTEINon 022 CRP [Mass/Vol] 2.5 mg/L Normal 0.0-7.0 [facility] Comment on above: Performed By: #### 6 1405, 10049 #### [facility] [address] CBC COMPLETE BLOOD COUNTon 0 04-20-2022 Erythrocyte distribution width (RBC) [Ratio] 12.4 % Normal 11.5-15.0 [facility] Comment on above: Performed By: #### 5 2306, 75927 #### [facility] [address] Hematocrit (Bld) [Volume fraction] 41.6 % Normal 36.0-45.0 [facility] Comment on above: Performed By: #### 5 6416, 34785 #### [facility] [address] Hemoglobin (Bld) [Mass/Vol] 13.7 g/dL Normal 12.0-15.0 [facility] Comment on above: Performed By: #### 5 650, 86714 #### [facility] [address] [place] [address], [facility] MCH (RBC) [Entitic mass] 31.4 pg Normal 27.0-33.0 [facility] Comment on above: Performed By: #### 5 650, [address] #### [facility] [address] [place] [id number], [facility] MCHC (RBC) [Mass/Vol] 32.9 g/dL Normal 32.0-35.0 [facility] Comment on above: Performed By: #### 5 650, 10697 #### [facility] [address] [place] [id number], [facility] MCV (RBC) [Entitic vol] 95.2 fL Normal 82.0-98.0 [facility] Comment on above: Performed By: #### 5 650, [address]79[address] #### [facility] [address] [place] [id number], [facility] Nucleated RBC/100 WBC (Bld) [Ratio] 0 % Normal 0-0 [facility] Comment on above: Performed By: #### 5 650, 23760 #### [facility] [address] [place] [address], [facility] PLAT CNT 248 10*3/uL Normal 150-400 [facility] Comment on above: Performed By: #### 5 650, 84281 #### [facility] [address] [place] [id number], [facility] RBC (Bld) [#/Vol] 4.37 10*6/uL Normal 3.80-5.00 [facility] Comment on above: Performed By: #### 5 650, 70[address] #### [facility] [address] [place] [address], [place] WBC (Bld) [#/Vol] 5.54 10*3/uL Normal 4.00-10.60 The [facility] Comment on above: Performed By: #### 5 6506, 17303 #### [address] [address], [facility] CERVICAL SPINE 4 OR 5 VIEWSo n 04-20-2022 CERVICAL SPINE 4 OR 5 VIEWS [facility] Department of Radiology [address] [place] [id number] ======== Patient Name: ARIANNE MURDOCK : 1945 Sex: F Age: Race: White Pt. Location: [facility] Patient Status: O Ordered Date: 04/20/2022 10:50:00 AM Completed Date: 04/20/2022 11:42 AM Requesting Provider: MICHAEL HAHN Attending Provider: ARIADNA NOLAN Report Copy To: Signs & Symptoms: M54.2 Cervicalgia I10 History: [place] Comments: Views (X-RAY, CERVICAL SPINE): AP, Lateral, [...] C3 Electronically signed: Christian Upton. Transcribed by: [email or web address], User Resident: Electronically Signed by: CHRISTIAN UPTON @ 04/20/2022 02:33 PM Normal [facility] Comment on above: Order Comment: Views (X-RAY, CERVICAL SPINE): AP, Lateral, Odontoid, Flexion, Extension COMP METABOLIC PANELon 04-20 Albumin [Mass/Vol] 4.1 g/dL Normal 3.5-5.7 [facility] Comment on above: Performed By: #### 3 5515, 48292, [address] #### [facility] [address] ALKALINE PHOSPH 63 IU/L Normal 34-104 [facility] Comment on above: Performed By: #### 3 5515, 65279, 410[address] #### [facility] [address] [place] [address], [facility] ALT [Catalytic activity/Vol] 15 U/L Normal 7-52 [facility] Comment on above: Performed By: #### 3 5515, 32398, 70276 #### [facility] [address] [place] [address], [facility] AST [Catalytic activity/Vol] 22 U/L Normal 13-39 [facility] Comment on above: Performed By: #### 3 5515, 26859, 26889 #### [facility] [address] [place] [address], [facility] Bilirubin [Mass/Vol] 0.5 mg/dL Normal 0.3-1.0 [facility] Comment on above: Performed By: #### 3 5515, 97831, 95087 #### [facility] [address] [place] [address], [place] Calcium [Mass/Vol] 10.2 mg/dL Normal 8.6-10.3 [facility] Comment on above: Performed By: #### 3 5515, 75550, 05979 #### [facility] [address] [place] [address], [place] Chloride [Moles/Vol] 105 mmol/L Normal 98-107 [facility] Comment on above: Performed By: #### 3 5515, 77946, 26458 #### [facility] [address] [place] [address], [place] CO2 [Moles/Vol] 25 mmol/L Normal 21-31 [facility] Comment on above: Performed By: #### 3 5515, 38539, 31599 #### [facility] [address] [place] [address], [place] Creatinine [Mass/Vol] 0.95 mg/dL Normal 0.60-1.20 [facility] Comment on above: Performed By: #### 3 5515, 09154, 11279 #### [facility] [address] [place] [address], [place] GFR/1.73 sq M.predicted among non-blacks MDRD (S/P/Bld) [Vol rate/Area] mL/min/{1.73_m2} Normal >60 [facility] Comment on above: Result Comment: [facility]'s estimated glomerular filtration rate (eGFR) will [...] of individuals. Performed By: #### 3 5515, 06228, 83733 #### [facility] [address] [place] [address], [place] Glucose [Mass/Vol] 88 mg/dL Normal 70-100 [facility] Comment on above: Performed By: #### 3 5515, 62749, 55174 #### [facility] [address] [place] [address], [place] Potassium [Moles/Vol] 4.5 mmol/L Normal 3.5-5.1 [facility] Comment on above: Performed By: #### 3 5515, 68009, 11347 #### [facility] [address] [place] [address], [place] Protein [Mass/Vol] 6.8 g/dL Normal 6.0-8.3 [facility] Comment on above: Performed By: #### 3 5515, 17041, 09659 #### [facility] [address] [place] [address], [place] Sodium [Moles/Vol] 138 mmol/L Normal 136-145 [facility] Comment on above: Performed By: #### 3 5515, 98133, 00413 #### [facility] [address] [place] [address], [place] Urea nitrogen [Mass/Vol] 29 mg/dL High 7-25 [facility] Comment on above: Performed By: #### 3 5515, 09080, 99671 #### [facility] [address] [place] [address], [facility] CYCLIC CITRULLINATED PEPTIDE [place] [id number] 04-20-2022 CYCLIC CIT PEP 2 Units Normal 0-19 [facility] Comment on above: Result Comment: INTE RPRETIVE [...] be monitored and testing repeated. Performed By: [employer] [address] [place] [id number] Pbx Teacher: Brett Tamez MD, PhD FERRITINon 04-20-2022 Ferritin [Mass/Vol] 43 ng/mL Normal 11-307 [facility] Comment on above: Performed By: #### 3 5515, 20861, [address] #### [address] [facility] LEFT 3 VWS [facility] Department of Radiology [address] [place] [id number] ======== Patient Name: ARIANNE MURDOCK : 1945 Sex: F Age: Race: White Pt. Location: [facility] Patient Status: O Ordered Date: 04/20/2022 10:50:00 AM Completed Date: 04/20/2022 11:42 AM Requesting Provider: MICHAEL HAHN Attending Provider: ARIADNA NOLAN Report Copy To: Signs & Symptoms: M79.641 Pain in right hand I10 History: [place] Comments: Evaluate Exam: HAND LEFT 3 [place] [facility] ======== HAND LEFT 3 S 04/20/2022 [...] report. Electronically signed: Chelita Lazcano. Transcribed by: [email or web address], User Resident: NIRMALA MONGE Electronically Signed by: CHELITA LAZCANO @ 04/20/2022 01:29 PM I personally read this/these film(s) with this resident Normal [facility] Comment on above: Order Comment: Evalu ate HAND RIGHT 3 [facility] 2 HAND RIGHT 3 [facility] Department of Radiology [address] [place] [id number] ======== Patient Name: ARIANNE MURDOCK : 1945 Sex: F Age: Race: White Pt. Location: 264 Patient Status: O Ordered Date: 04/20/2022 10:50:00 AM Completed Date: 04/20/2022 11:42 AM Requesting Provider: MICHAEL HAHN Attending Provider: ARIADNA NOLAN Report Copy To: Signs & Symptoms: M79.641 Pain in right hand I10 History: [place] Comments: Evaluate Exam: HAND RIGHT 3 VWS [...] report. Electronically signed: Chelita Lazcano. Transcribed by: [email or web address], User Resident: NIRMALA MONGE Electronically Signed by: CHELITA LAZCANO @ 04/20/2022 01:43 PM I personally read this/these film(s) with this resident Normal [facility] Comment on above: Order Comment: Evalu ate RHEUMATOID FACTOR SERUMon RA <20 Normal 0-20 [facility] Comment on above: Performed By: #### 6 [id number], [id number] #### [facility] [address] [place] [address], [facility] SEDIMENTATION RATEon 022 SED RATE 38 mm/hr High 0-20 [facility] Comment on above: Performed By: #### 5 [id number], [id number] ####[facility] [place] [address], [facility] TIBC- INCLUDES IRONon 2021 FE SATURATION 30 % Normal 20-50 [facility] Comment on above: Performed By: #### 3 5515, 24507, [id number] #### [facility] [address] [place] [address], [facility] Iron [Mass/Vol] 115 ug/dL Normal 50-212 [facility] Comment on above: Performed By: #### 3 5515, 54850, [id number] #### [facility] [address] [place] [address], [facility] TIBC 378 mcg/dL Normal 250-450 [facility] Comment on above: Performed By: #### 3 5515, 21161, 62757 #### [facility] [address] [place] [id number], [facility] UIBC 263 mcg/dL Normal 155-355 [facility] Comment on above: Performed By: #### 3 5515, 56599, [address]5764 #### [facility] [address] [place] [id number], [facility] CALCIUMon 04-09-2022 Calcium [Mass/Vol] 9.6 mg/dL Normal 8.5-10.1 [facility] Comment on above: Performed By: #### VALERIO MADRIGAL #### [facility] [address] [address] [address] Dang Grimm CREATININEon 04-09-2022 Creatinine [Mass/Vol] 1.07 mg/dL Critically high 0.55-1.02 [facility] Comment on above: Performed By: #### [place] #### [facility] [address] [place], [place] [address] Dr. Dang Grimm EGFR-AF SPANISH >60 Normal >=60 [facility] Comment on above: Performed By: #### [place] #### [facility] [address] [place], [place] [address] Dr. Dang Grimm EGFR-NON AF SPANISH 50 mL/min/1.73m2 Critically low >=60 [facility] Comment on above: Performed By: #### [place] #### [facility] [address] [place], [place] [address] Dr. Dang Grimm Vital Signs Date Time Vital Sign Value Performing Clinician Facility 06-02-2024 14:33-0400 Body height 154.9 cm Stvz Schedule [employer] [facility] 06-02-2024 14:33-0400 Body mass index (BMI) [Ratio] 24 kg/m2 Stvz Schedule [employer] [facility] 06-02-2024 14:33-0400 Body weight 57.61 kg Stvz Schedule [facility] 06-02-2024 14:33-0400 Diastolic blood pressure 63 mm[Hg] Stvz Schedule [facility] 06-02-2024 14:33-0400 Heart rate 96 /min Stvz Schedule [facility] 06-02-2024 14:33-0400 Respiratory rate 16 /min Stvz Schedule [employer] [facility] 06-02-2024 14:33-0400 SaO2% (BldA) [Mass fraction] 97 % Stvz Schedule [facility] 06-02-2024 14:33-0400 Systolic blood pressure 132 mm[Hg] Stvz Schedule [facility] 03-20-2024 09:15-0400 Diastolic blood pressure 62 mm[Hg] MD Viky Stanford Work Phone: [facility] 03-20-2024 09:15-0400 Heart rate 72 /min MD Viky Stanford Work Phone: [facility] 03-20-2024 09:15-0400 Respiratory rate 20 /min MD Viky Stanford Work Phone: [facility] 03-20-2024 09:15-0400 SaO2% (BldA) [Mass fraction] 99 % MD Viky Stanford Work Phone: [facility] 03-20-2024 09:15-0400 Systolic blood pressure 115 mm[Hg] MD Viky Stanford Work Phone: [facility] 03-20-2024 07:18-0400 Body height 156.84 cm MD Viky Stanford Work Phone: [facility] 03-20-2024 07:18-0400 Body weight 55.33 kg MD Viky Stanford Work Phone: [facility] 03-16-2024 09:04-0400 Body height 156.84 cm MD Viky Stanford Work Phone: [facility] 03-16-2024 09:04-0400 Body mass index (BMI) [Ratio] 22.8 kg/m2 MD Viky Stanford Work Phone: [facility] 03-16-2024 09:04-0400 Body weight 56.24 kg MD Viky Stanford Work Phone: [facility] 03-16-2024 09:04-0400 Diastolic blood pressure 72 mm[Hg] MD Viky Stanford Work Phone: [facility] 03-16-2024 09:04-0400 Heart rate 81 /min MD Viky Stanford Work Phone: [facility] 03-16-2024 09:04-0400 Systolic blood pressure 122 mm[Hg] MD Viky Stanford Work Phone: [facility] 10-02-2023 09:55-0500 Diastolic blood pressure 67 mm[Hg] MD Viky Stanford Work Phone: [facility] 10-02-2023 09:55-0500 Heart rate 80 /min MD Viky Stanford Work Phone: [facility] 10-02-2023 09:55-0500 Respiratory rate 16 /min MD Viky Stanford Work Phone: [facility] 10-02-2023 09:55-0500 SaO2% (BldA) [Mass fraction] 99 % MD Viky Stanford Work Phone: [facility] 10-02-2023 09:55-0500 Systolic blood pressure 108 mm[Hg] MD Viky Stanford Work Phone: [facility] 10-02-2023 07:07-0500 Body height 160.02 cm MD Viky Stanford Work Phone: [facility] 10-02-2023 07:07-0500 Body weight 56.69 kg MD Viky Stanford Work Phone: [facility] 08-30-2023 10:30-0500 Body height 157.48 cm Viky Stanford Other [facility] 08-30-2023 10:30-0500 Body mass index (BMI) [Ratio] 21.73 kg/m2 Viky Stanford Other [facility] Other 08-30-2023 10:30-0500 Body weight 53.89 kg Viky Stanford Other [facility] Other 08-30-2023 10:30-0500 Body weight 53.88 kg MD Viky Stanford Work Phone: [facility] 08-30-2023 10:30-0500 Diastolic blood pressure 74 mm[Hg] Viky Stanford Other [facility] 08-30-2023 10:30-0500 Systolic blood pressure 122 mm[Hg] Viky Stanford Other [facility] 08-21-2023 13:45-0500 Body height 157.48 cm Imad Asaad Other [facility] 08-21-2023 13:45-0500 Body mass index (BMI) [Ratio] 21.58 kg/m2 Imad Asaad Other [facility] Other 08-21-2023 13:45-0500 Body weight 53.52 kg Imad Asaad Other [facility] 07-15-2023 11:30-0500 Body height 157.48 cm Viky Stanford Other [facility] 07-15-2023 11:30-0500 Body mass index (BMI) [Ratio] 21.73 kg/m2 Viky Stanford Other [facility] Other 07-15-2023 11:30-0500 Body weight 53.89 kg Viky Stanford Other [facility] Other 07-15-2023 11:30-0500 Body weight 53.88 kg MD Viky Stanford Work Phone: [facility] 07-15-2023 11:30-0500 Diastolic blood pressure 78 mm[Hg] Viky Stanford Other [facility] 07-15-2023 11:30-0500 Systolic blood pressure 148 mm[Hg] Viky Stanford Other [facility] 07-06-2023 09:20-0500 Body height 157.48 cm MD Viky Stanford Work Phone: [facility] 07-06-2023 09:20-0500 Body weight 55.51 kg MD Viky Stanford Work Phone: [facility] Encounters Encounter Date Encounter Type Care Provider Facility Start: 08-03-2024 End: 08-03-2024 ambulatory Ara Maier MD Facility: [facility] Start: 07-27-2024 End: 07-27-2024 ambulatory Ara Maier MD Facility:[facility] Start: 07-06-2024 End: 07-06-2024 ambulatory Ara Maier MD Facility: [facility] Start: 06-26-2024 End: 06-28-2024 ambulatory ECHO Mir [facility] Start: 06-26-2024 End: 06-28-2024 Subsequent hospital visit by physician Echo Ham DO Work Phone: [facility] CT Scan Comment on above: Sacroiliitis (HCC) Start: 06-09-2024 End: 06-09-2024 ambulatory ECHO Mir [facility] Start: 06-02-2024 End: 06-06-2024 ambulatory ECHO Mir [facility] Start: 06-02-2024 Encounter for other preprocedural examination [facility] Start: 06-02-2024 End: 06-06-2024 Patient encounter status Hoa Moody [facility] Start: 06-02-2024 End: 06-06-2024 Subsequent hospital visit by physician Hoa Dias Pat Schedule HOA Dias Pre-Admit Testing Comment on above: Pre-op testing (Prim edil Dx) Start: 04-29-2024 End: 04-29-2024 Bamboo flowsheet Romelia Mcclain [employer] Work Phone: [facility] Start: 04-29-2024 End: 04-29-2024 Bamboo flowsheet Romelia Mcclain [employer] Work Phone: [facility] Start: 04-29-2024 End: 04-29-2024 Office outpatient visit 10 minutes Romelia Mcclain [employer] Work Phone: [facility] Comment on above: Left knee pain, unsp ecified chronicity (Primary Dx); Arthritis of left knee Start: 04-29-2024 End: 04-29-2024 ambulatory ROMELIA MCCLAIN Not Available Start: 04-15-2024 End: 04-15-2024 Bamboo flowsheet Romelia Mcclain [employer] Work Phone: [facility] Start: 04-15-2024 End: 04-15-2024 Bamboo flowsheet Romelia Keith Gonzálezondina [employer] Work Phone: [facility] Start: 04-15-2024 End: 04-15-2024 Office outpatient visit 25 minutes Romelia Keith Sarahi [employer] Work Phone: [facility] Comment on above: Left knee pain, unsp ecified chronicity (Primary Dx); Arthritis of left knee Start: 04-15-2024 End: 04-15-2024 ambulatory ROMELIA Keith APLING Not Available Start: 03-20-2024 Non-patient / Non-visit MD Viky Stanford Work Phone: [facility] G[facility] Work Phone: Start: 03-20-2024 End: 03-20-2024 Admission to same day surgery center MD Viky Stanford Work Phone: [facility] Work Phone: Start: 03-20-2024 End: 03-20-2024 ambulatory MD Viky Stanford Work Phone: [facility] Work Phone: Start: 03-18-2024 End: 03-18-2024 ambulatory ROMELIA Keith APLING Not Available Start: 03-17-2024 Preoperative state MD Viky bliss Work Phone: [facility] Start: 03-16-2024 End: 03-16-2024 ambulatory ROMELIA Keith APLING Not Available Start: 03-16-2024 End: 03-16-2024 Patient encounter procedure MD Viky Stanford Work Phone: [facility] Work Phone: Start: 10-14-2023 End: 10-14-2023 ambulatory Ara Miaer MD Facility:[facility] Start: 10-04-2023 End: 10-04-2023 ambulatory Imad Asaad Other [employer] Other Start: 10-04-2023 Telephone encounter Imad Asaad [facility] Start: 10-02-2023 Non-patient / Non-visit MD Viky Stanford Work Phone: [facility] Work Phone: Start: 10-02-2023 End: 10-02-2023 Admission to same day surgery center MD Viky Stanford Work Phone: [facility] Work Phone: Start: 10-02-2023 End: 10-02-2023 ambulatory MD Viky Stanford Work Phone: [facility] Work Phone: Start: 09-23-2023 End: 09-23-2023 ambulatory Viky Stanford Other [employer] Other Start: 09-23-2023 Telephone encounter Viky Stanford [facility] Start: 09-09-2023 End: 09-09-2023 ambulatory ROMELIA B APLING Not Available Start: 09-04-2023 End: 09-04-2023 ambulatory ROMELIA B APLING Not Available Start: 09-03-2023 End: 09-03-2023 ambulatory Viky Stanford Other [employer] Other Start: 09-03-2023 Telephone encounter Viky Stanford [facility] Start: 08-30-2023 End: 08-30-2023 ambulatory Viky Stanford Other [employer] Other Start: 08-30-2023 Office outpatient visit 15 minutes Viky Stanford [facility] Start: 08-30-2023 End: 08-30-2023 Patient encounter procedure MD Viky Stanford Work Phone: [facility]- Start: 08-23-2023 End: 08-23-2023 ambulatory Viky Stanford Other [employer] Other Start: 08-23-2023 Telephone encounter Viky Stanford [facility] Start: 08-21-2023 End: 08-21-2023 ambulatory Imad Asaad Other [employer] Other Start: 08-21-2023 Office outpatient ne w 45 minutes Imad Asaad [facility] Start: 08-21-2023 End: 08-21-2023 Patient encounter procedure MD Viky Stanford Work Phone: [facility] G[facility] Work Phone: Start: 07-15-2023 End: 07-15-2023 ambulatory Viky Stanford Other [employer] Other Start: 07-15-2023 Office outpatient visit 15 minutes Viky Stanford [facility] Start: 07-15-2023 Telephone encounter Viky Stanford [facility] Start: 07-15-2023 End: 07-15-2023 Patient encounter procedure MD Viky Stanford Work Phone: [facility] Work Phone: Start: 07-06-2023 End: 07-06-2023 Patient encounter procedure MD Viky Stanford Work Phone: [facility] Luis Alfredo Work Phone: [...] DR MASSIMO MATTHEWS . [facility] Start: 07-24-2022 End: 07-24-[address] [...] 04-20-2022 End: 04-21-2022 ambulatory ARIADNA NOLAN Facility:[facility] Start: 04-09-2022 End: 04-10-[address] VIKY STANFORD Facility: Start: 02-27-2022 End: 02-28-2022 ambulatory DEFAULT PHYSICIAN Facility:[facility] Start: 02-22-2022 End: 02-23-[address] MASSIMO MATTHEWS . Facility: Start: 12-06-2021 ambulatory MICHELE SALDAÑA . Facility:[facility] Start: 11-30-2021 End: 12-01-[address] MASSIMO MATTHEWS . Facility: Start: 10-25-2020 Pre-procedure evaluation check Viky Stanford Other [employer] Other Procedures Date Procedure Procedure Detail Performing Clinician Start: 06-26-2024 Ct pelvis w/o contrast material Echo Ham DO Work Phone: Start: 06-02-2024 Blood count complete auto&auto difrntl wbc Ling Rojas MD Work Phone: Start: 06-02-2024 Ecg routine ecg w/least 12 lds w/i&r Ling Rojas MD Work Phone: Start: 04-15-2024 Arthrocentesis aspir&/inj major jt/bursa w/o us Romelia Mcclain [employer] Work Phone: Start: 04-15-2024 Radiologic examination knee 3 views Danae a Sagar Mcclain [employer] Work Phone: Start: 03-20-2024 Colonoscopy MD Viky Stanford Work Phone: Start: 10-02-2023 Esophagogastroduodenoscopy MD Viky fox Work Phone: Start: 07-10-2017 Screening mammography Viky Stanford Other Start: 07-19-2016 General examination of patient Viky padilla Other Plan of Treatment Date Care Activity Detail Author Start: 04-23-2032 DTaP/Tdap/Td vaccine (2 - Td or Tdap) DTaP/Tdap/Td vaccine (2 - Td or Tdap) [facility] Start: 06-09-2024 End: 06-09-2024 Admission to same day surgery center 06/09/2024 7:30 AM EDT - 06/09/2024 9:30 AM EDT Surgery [facility] [place] [address] [place] [address] Echo Ham, DO [address] [place], [place] [id number] RIGHT MINIMALLY INVASIVE SURGERY SACROILIAC JOINT FUSION POSTERIOR WITH SI BONE [facility] [place] Comment on above: RIGHT MINIMALLY INVA SIVE SURGERY SACROILIAC JOINT FUSION POSTERIOR WITH SI BONE Start: 06-09-2024 End: 06-09-2024 Anesthesia consultation 06/09/2024 7:30 AM EDT Anesthesia Event [facility] [place] [address] [place] [address] Ricco Foote MD [address] [facility] [address] [place] [address] [facility] [place] Start: 06-09-2024 End: 06-09-2024 Arthrodesis sacroiliac joint percutaneous SACROILIAC JOINT FUSION POSTERIOR Chronic right SI joint pain 06/09/2024 7:30 AM EDT [facility] Start: 06-09-2024 Subsequent hospital visit by physician 06/09/2024 7:30 AM EDT Hospital Encounter [facility] [address] [place] [address] Echo Ham, DO [address] [place] [id number] [facility] Start: 05-27-2024 Annual Wellness Visi t (Medicare) Annual Wellness Visit (Medicare) [facility] Start: 04-29-2024 End: 04-29-2024 Patient encounter procedure [facility] Comment on above: Left knee pain, unsp ecified chronicity (Primary Dx); Arthritis of left knee Start: 04-15-2024 End: 04-15-2024 Patient encounter procedure 04/15/2024 11:15 AM EDT Office Visit [facility] [address] [facility] [address] [place] [id number] Romelia Mcclain NP [address] [facility] [address] [place] [address] Left knee pain, unspecified chronicity (Primary Dx) [facility] Comment on above: Left knee pain, unsp ecified chronicity (Primary Dx) Start: 04-12-2024 COVID-19 Vaccine ( season) COVID-19 Vaccine ( season) [facility] Start: 04-12-2024 Influenza vaccination Influenza Vacc ine (#1) [facility] Start: 03-20-2024 [facility] Start: 10-02-2023 [facility] Start: 2001 Screening for osteoporosis DEXA (modify frequency per FRAX score) [facility] Start: 1964 Hepatitis C screening Hepatitis C sc reen [facility] Start: 1958 Depression Screen Depression Screen [facility] Patient Education Hemorrhoids (D C) Know your Meds [facility] Work Phone: Immunizations Immunization Date Immunization Notes Care Provider Fa cili 04-16-2023 influenza virus vaccine, unspecified formulation oRmelia Claudioondina ANDREW Work Phone: [facility] 05-17-2022 zoster vaccine, live Viky Stanford Other [facility] 04-23-2022 influenza virus vaccine, split virus (incl. purified surface antigen) Viky Stanford Other [facility] Other 04-23-2022 influenza virus vaccine, unspecified formulation MD Viky Stanford Work Phone: [facility] 04-23-2022 pneumococcal polysaccharide vaccine, 23 valent Viky Stanford Other [facility] 04-23-2022 tetanus toxoid, adsorbed Viky Stanford Other [facility] 05-25-2021 influenza virus vaccine, split virus (incl. purified surface antigen) Viky Stanford Other [facility] Other 05-25-2021 influenza virus vaccine, unspecified formulation MD Viky Stanford Work Phone: [facility] 10-18-2020 COVID-19 Vaccine Moderna - Documentation Purposes Only Viky Stanford Other [facility] 09-19-2020 COVID-19 Vaccine Moderna - Documentation Purposes Only Viky Stanford Other [facility] 04-16-2020 influenza virus vaccine, split virus (incl. purified surface antigen) Viky Stanford Other [employer] [facility] Other 04-16-2020 influenza virus vaccine, unspecified formulation MD Viky Stanford Work Phone: [facility] 05-12-2019 influenza virus vaccine, split virus (incl. purified surface antigen) Viky Stanford Other [employer] Other 05-12-2019 influenza virus vaccine, unspecified formulation MD Viky Stanford Work Phone: [facility] 04-18-2018 influenza virus vaccine, split virus (incl. purified surface antigen) Viky Stanford Other [employer] [facility] Other 04-18-2018 influenza virus vaccine, unspecified formulation MD Viky Stanford Work Phone: [facility] 07-10-2017 pneumococcal conjuga te vaccine, 13 valent Viky Stanford Other [facility] 04-18-2017 influenza virus vaccine, split virus (incl. purified surface antigen) Viky Stanford Other [employer] [facility] Other 04-18-2017 influenza virus vaccine, unspecified formulation MD Viky Stanford Work Phone: [facility] 05-09-2016 influenza virus vaccine, split virus (incl. purified surface antigen) Viky Stanford Other [employer] [facility] Other 05-09-2016 influenza virus vaccine, unspecified formulation MD Viky Stanford Work Phone: [facility] 05-27-2013 tetanus and diphther ia toxoids, adsorbed, preservative free, for adult use (5 Lf of tetanus toxoid and 2 Lf of diphtheria toxoid) Viky Stanford Other [facility] 12-24-2011 pneumococcal polysaccharide vaccine, 23 valent Viky Stanford Other [facility] Payers Date Payer Category Payer Self-pay 2022 Unknown 2011 Medicare [id number] 1959 Medicare [id number] 1959 Unknown [id number] 1945 Unknown [id number] 2.16.8 40.1.203754.3.579.2.647 1945 Unknown [id number] 2.16.8 40.1.649132.3.579.2.647 1945 Unknown [id number] 2.16.84 0.1.789075.3.579.2.593 1945 Unknown [id number] 2.16.84 0.1.520708.3.579.2.593 1945 Unknown [id number] 2.16.84 0.1.861735.3.579.2.593 1945 Unknown [id number] 2.16.84 0.1.237239.3.579.2.593 1946 Unknown [id number] 2.16.84 0.1.518598.3.579.2.593 1946 Unknown [id number] 2.16.84 0.1.265982.3.579.2.593 1945 Unknown [id number] 2.16.84 0.1.090682.3.579.2.593 1946 Unknown [id number] 2.16.84 0.1.066541.3.579.2.593 1946 Unknown [id number] 2.16.84 0.1.490998.3.579.2.593 1946 Unknown [id number] 2.16.84 0.1.803773.3.579.2.593 1946 Unknown [id number] 2.16.84 0.1.121317.3.579.2.593 1946 Unknown [id number] 2.16.84 0.1.617830.3.579.2.593 1946 Unknown [id number] 2.16.84 0.1.006415.3.579.2.593 1946 Unknown [id number] 2.16.84 0.1.346214.3.579.2.593 1946 Unknown [id number] 2.16.84 0.1.393357.3.579.2.1259 1946 Unknown [id number] 2.16.84 0.1.918026.3.579.2.1259 1946 Unknown [id number] 2.16.84 0.1.557732.3.579.2.1259 1946 Unknown [id number] 2.16.84 0.1.788531.3.579.2.1259 1946 Unknown [id number] 2.16.84 0.1.721186.3.579.2.1259 1946 Unknown [id number] 2.16.84 0.1.827281.3.579.2.1259 1946 Unknown [id number] 2.16.84 0.1.117115.3.579.2.1259 1946 Unknown [id number] 2.16. 840.1.319868.3.579.2.175 1945 Unknown [id number] 2.16. 840.1.399271.3.579.2.175 1946 Unknown [id number] 2.16.8 40.1.555922.3.579.2.176 1945 Unknown [id number] 2.16. 840.1.830576.3.579.2.196 1945 Unknown [id number] 2.16. 840.1.518631.3.579.2.196 1945 Unknown [id number] 2.16. 840.1.245979.3.579.2.196 1945 Unknown [id number] 2.16. 840.1.499959.3.579.2.196 Medicare Medicare Outpatient [id number] Unknown [id number] 2.16.8 40.1.747047.3.579.2.531 Social History Date Type Detail Facility Unknown if ever smoked [facility] Other Start: 03-16-2024 End: 06-02-2024 Sex Assigned At [facility] Other Start: 12-31-2022 End: 10-02-2023 Tobacco smoking status NHIS Never smoked tobacco (finding) [facility] Start: 1945 Sex Assigned At Female F [facility] Start: 12-31-2022 End: 06-02-2024 Tobacco use and exposure Smokeless tobacco non-user [facility] Start: 03-16-2024 End: 06-02-2024 Alcoholic beverage intake Current drinker of alcohol (finding) [facility] Start: 03-16-2024 End: 06-02-2024 History of Social function [facility] Physical abuse Denies [employer] [facility] Start: 06-02-2024 Alcohol Comment occasioally only [facility] Start: 1945 Sex assigned at Not on file N [facility] Start: 06-07-2024 Gender identity Identifies as female gender (finding) [employer] Start: 12-31-2022 Alcohol Comment 5-6x/year [facility] Procedure Code Equipment Code Equipment Origin al Text Equipment Identifier Dates Joint Sacroiliac 11.5x50 Mm [employer]-Torq - [id number] Start: 06-09-2024 Joint Sacroiliac 11.5x35 Mm If[employer]-Torq - [id number] Start: 06-09-2024 Joint Sacroiliac 11.5x35 Mm Ifuse-Torq - [id number] Start: 06-09-2024 Goals Date Patient Goal [...] at the surgery center C entrance) on ___48-88-06 by ____0530-0600am . Please stop any blood [...] drive you home after your procedure. Your charter driver must be 18 years of age [...] of surgery documented in this encounter [facility] [place] [facility] 04-29-2024 History of Present illness [...] tolerated, f/U prn documented in this encounter [facility] 04-15-2024 History of Present illness Narrative Associated [...] in 2 weeks. documented in this encounter [facility] 03-20-2024 Procedure note [facility] 10-02-2023 Procedure note [facility] 08-30-2023 Evaluation note Encounter Date Diagnosis [...] try OTC ones in meantime. Referral placed. [facility] 01-10-2024 Evaluation note* Encounter Date Diagnosis Assessment Notes Treatment Notes Treatment Clinical Notes Aug, GERD (gastroesophageal reflux disease) (ICD-10 - K21.9) Aug, Chronic diarrhea (ICD-10 - K52.9) Patient reports that her last colonoscopy was at the [facility] about 11 years ago and that she can not remember who preformed the procedure Aug, Abdominal pain (ICD-10 - R10.9) Aug, Weight loss, unintentional (ICD-10 - R63.4) Aug, Change in bowel habits (ICD-10 - R19.4) Lizbeth is advised to have a colonoscopy ordered, scheduled and prep instructions given today Risks and benefits of procedure explained to patient; patient verbalizes understanding. [facility] Other 12-04-2023 Evaluation note* Encounter Date Diagnosis [...] (ICD-10 - M81.0) Due for Dexa 08/2023 [facility] Other 02-16-2023 NoteCONSULTATION CONSULTATION DATE: 09/27/2022 HISTORY OF PRESENT ILLNESS: This is a 76-year-old female who returns to the clinic status post LES on 09/11/2022. The patient states she was afforded between 50-60% relief. Depending on her physical activity, determines her level of comfort. Activities such as standing, walking, lying, environmental web crawler hours, housework and lifting greatly aggravate her [...] in agreement with this plan.[facility] [id number] NoteCONSULTATION CONSULTATION DATE: 09/04/2022 HISTORY OF PRESENT [...] and would like to proceed.[facility] [id number] NoteCONSULTATION CONSULTATION DATE: 07/11/2022 HISTORY OF PRESENT [...] in the clinic post procedure.[facility] [id number] NoteCONSULTATION PROCEDURE DATE: 07/11/2022 PREOPERATIVE DIAGNOSIS: Bilateral [...] followed up in the clinic.[facility] 06-06-2022 NoteCONSULTATION CONSULTATION DATE: 06/06/2022 HISTORY [...] pain returning. 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 The patient has not seen a oral surgery physician in the past. REVIEW OF SYSTEMS, PAST [...] mg q.h.s. A referral to rheumatology near [place] will be sent on her behalf and I highly encouraged her to seek consultation, particularly since she has a familial history of autoimmune diseases. The patient agrees with the plan of care and will be followed up in the office in three months' time. [facility] Signed and Approved by: MICHELE SALDAÑA . 03/02/2022 14:16:00[facility]04-21-2022 NoteCONSULTATION Consultation Date:11/30/2021 PREOPERATIVE DIAGNOSIS: [...] will be followed up in the office. [facility] Signed and Approved by: MICHELE SALDAÑA . 12/06/2021 16:15:00[facility]04-21-2022 NoteCONSULTATION Consultation Date:11/30/2021 PAIN MANAGEMENT [...] her pain are twisting, turning, pushing, pulling, environmental web crawler hours, lifting and transitioning positions. Lying down and using heat decrease her pain. Prior to the procedure, she was in a state of acute pain and was placed on a short term course of [place] 5/325 b.i.d. p.r.n. Patient states she only [...] of care and would like to proceed. [facility] Signed and Approved by: MICHELE SALDAÑA . 12/06/2021 16:15:00[facility] noteNo InformationNort Haztucesta Other Evaluation noteNo assessment information available [facility] Work Phone: Evaluation note* Diagnosis Onset Date Resolution Status Lumbar spondylosis acute Preoperative clearance acute Situational depression acute [facility] Work Phone: Evaluation note* Diagnosis Pre-op testing- Primary Preoperative examination, unspecified Chronic right SI joint pain Disorders of sacrum [facility]* Diagnosis Sacroiliitis (HCC) Sacroiliitis, not elsewhere classified documented in this encounter [facility] note* Diagnosis Left knee pain, unspecified chronicity- Primary Arthritis of left knee documented in this encounter [facility]* Diagnosis Left knee pain, unspecified chronicity- Primary Arthritis of left knee documented in this encounter [facility] Author Sunny Torres [facility] October 02, 2023 8:54am Note Date/Time October 02, 2023 8:54am [facility] [address] [place] [address] Gastroenterology H&P Signed Patient: Arianne Murdock MR#: [id number] : 1945 Acct:[id number] Age/Sex: 78 / F Adm Date: 4 Loc: Room: Type: [facility] Attending Dr: Sunny Torres MD Copies [...] procedure. Sunny Torres M.D. Documented By: Sunny Torers MD 10/02/23 0852 Signed By: <Electronically signed by Sunny Torres MD> 10/02/23 0854 [facility] Work Phone: History and physical note Author Sunny Torres [facility] March 20, 2024 8:43am Note Date/Time March 20, 2024 8:4 3am [facility] [address] [place] [address] Gastroenterology H&P Signed Patient: Arianne Murdock MR#: [id number] : 1945 Acct:[id number] Age/Sex: 78 / F Adm Date: 4 Loc: Room: Type: [facility] Attending Dr: Sunny Torres MD Copies [...] signed by Sunny Torres MD> 03/20/[address] [facility] Work Phone: History general Narrative [...] shoulder pain 1981 Hospitalization History migraines 1992 [facility] Other Hospital Discharge instructions Additional Instructions DISCHARGE [...] NOT operate machinery such as power tools, [employer] mowers, snow blowers, sewing machines, etc. for [...] up in the office - Office number [phone]. [facility] Work Phone: Summary Purpose Family History [...] 1 Chronic diarrhea (K5 2.9) Referral Organization [facility] Clacendix pipo Referring Provider First Name Viky Referring Provider Last Name Abdoulaye Referring Provider Specialty Family Medi cine Referred Organization [facility] Gastroenterdeisy gy Referred Address [address] [address] ,[place], [place],[address] Referred Provider Specialty Gastroentero logy Referral Priority Routine Reason *FU 09/06 R foot p ain Diagnosis 1 Pain of left great t oe (M79.675) Referral Organization [facility] Clacendix pipo Referring Provider First Name Viky Referring Provider Last Name Abdoulaye Referring Provider Specialty [facility] Referred Organization [facility] Referred Provider Odin Chong Referred Address [address] [place], [place],[address] Referred Provider Specialty Podiatry - S urgical Chiropody Referral Priority Routine General Notes Shefali Carroll 12:44:49 PM >received today, notes locked, ins attached, referral faxed Specialty Diagnoses / Procedures Referred By Fabián martinez Referred To Contact Radiology Diagnoses Sacroiliitis (HCC) Procedures CT PELVIS WO CONTRAST Additional Contrast? None Ham, Echo Mir, DO [address] [place] [address] Referral ID Status Reason Start Date Expiration Date Visits Re quested Visits Authorized [id number] Closed 06/24/2024 06/24/2025 1 1 Specialty Diagnoses / Procedures Referred By Fabián martinez Referred To Contact Orthopaedic Surgery Diagnoses Arthritis of left knee Procedures L Inj/Asp: L knee Romelia Mcclain, UPPER LEATHER SORTER [address] [place] [address] Referral ID Status Reason Start Date Expiration Date Visits Re quested Visits Authorized [id number] Closed 04/15/2024 10/12/2024 1 1 Chief Complaint [...] and content) DATE CREATED AUTHOR 05/09/2022 [facility] DATE CREATED AUTHOR AUTHOR'S ORGANIZ ATION 11/17/2022 [facility] DATE CREATED AUTHOR AUTHOR'S ORGANIZ ATION 04/01/2024 [facility] DATE CREATED AUTHOR AUTHOR'S ORGANIZ ATION 05/01/2024 [facility] EPIC DATE CREATED AUTHOR AUTHOR'S ORGANIZ ATION 06/14/2024 [facility] DATE CREATED AUTHOR AUTHOR'S ORGANIZ ATION 06/30/2024 [facility] DATE CREATED AUTHOR AUTHOR'S ORGANIZ ATION 08/07/2024 [facility] REASON FOR VISIT (unrecogniz ed section and content) Specialty Diagnoses / Procedures Referred By Contac t Referred To Contact Radiology Diagnoses Sacroiliitis (HCC) Procedures CT PELVIS WO CONTRAST Additional Contrast? None Echo Ham DO [address] [place] [address] Referral ID Status Reason Start Date Expiration Date Visits Re quested Visits Authorized [id number] Closed 06/24/2024 06/24/2025 1 1 Reason Comments [...] Provider Act cara Start: March 20, 2024 Chair Car Driver Relationship Specialty Start Date End Date Viky Stanford MD [address] [place] [address] PCP - General Family Medicine 06/02/24 Chair Car Driver Relationship Specialty Start Date End Date Viky Stanford MD [address] [place] [address] PCP - General Family Medicine 06/02/24 Chair Car Driver Relationship Specialty Start Date End Date Viky Stanford MD [address] [place] [address] PCP - General Family Medicine 12/31/22 Chair Car Driver Relationship Specialty Start Date End Date Viky Stanford MD [address] [place] [address] PCP - General Family Medicine 12/31/22 Chair Car Driver Relationship Specialty Start Date End Date Viky Stanford MD [address] [place] [address] PCP - General Family Medicine 12/31/22 Chair Car Driver Relationship Specialty Start Date End Date Viky Stanford MD [address] [place] [address] PCP - General Family Medicine 12/31/22 FOR [...] BE BASED ON THE PRIMARY CLINICAL RECORDS. [employer] provides no warranty or guarantee of the accuracy or completeness of information in this document.
== END 2024-10-02 09:35 | disposition home or self-care (01) ==
LOC: EC 09:34
PROVIDERS: PCP Family Medicine; Visit Provider Orthopaedic Surgery Orthopaedic Surgery of the Spine
DX: M54.50 Low back pain, unspecified (principal); M85.88 Other specified disorders of bone density and structure, other site; M51.369 Other intervertebral disc degeneration, lumbar region without mention of lumbar back pain or lower extremity pain; M41.86 Other forms of scoliosis, lumbar region
CPT/HCPCS: 72110

== ENCOUNTER 2025-03-23 12:53 | Outpatient (OUT) | payer MEDICARE, SELFPAY ==
--- NOTE | 2025-03-23 12:57 | CT_ITS ---
The [address] [address] Patient Name: LOBO MURDOCK MRN: [id number] date: 1945 Sex: F Assigned Patient Location: CT Current Patient Location: CT Accession/Order Number: [id number] Exam Date: 03/23/2025 13:49 Report Date: 03/23/2025 13:53 At the request of: VERONICA CARCAMO MD Procedure: CT lumbar spine wo con CT lumbar spine wo con 03/23/2025 1:12 PM History:Left-sided sciatica. TECHNIQUE: Multi detector CT axial slices of the lumbar spine were obtained without IV contrast. Volumetric acquisition sagittal, coronal, and 3-D reconstructions were performed and reviewed on a separate workstation. CT was performed with one or more of the following dose reduction techniques: Automated exposure control, adjustment of the mA and/or kV according to patient size, or use of iterative reconstruction technique. COMPARISON: Lumbar spine 10/02/2024 FINDINGS: Posterior hardware fixation L4-L5 without hardware complication. Laminectomy defects L4 and L5. No fracture is seen. Mild wedge-shaped compression deformity of L3. No fracture line.. Severe disc space at L5-S1 and L4-L5. Diffuse endplate and facet joint degenerative changes. Mild disc height loss of L1-L4. SI joints demonstrate degenerative change. Right SI joint pinning. No paraspinal mass. Retroperitoneum demonstrates no acute process. CT/CT lumbar spine wo con IMPRESSION: Posterior hardware fixation L4-L5 without hardware complication. Mild degenerative disease L1-L4. Mild presumed chronic compression deformity L3. Finding is unchanged from prior study. Impression dictated by: Erik Cates Jr., D.O. 03/23/2025 1:53 PM Dictation Location: [place] [address] Electronically authenticated by: [id number] Y Date: 03/23/2025 13:53
--- OUTSIDE RECORDS SUMMARY | 2025-03-23 13:14 | XMS_ITS | CCD ---
Author Organization [facility] CliniSyme Care Team Providers Care Dye Expert Name Role Phone PHYSICIAN, DEFAULT Admitting Unavailable [...] MASSIMO Cook Attending Unavailable MATTHEWS ., DR MASSMIO Cook Admitting Unavailable SALDAÑA ., MICHELE Consulting [...] ., DR MASSIMO Cook Admitting Unavailable SALDAÑA .MICHELE Consulting Unavailable BALL, DR FLANAGAN Primary Care Unavailable MATTHEWS ., DR MASSIMO Cook Admitting Unavailable MATTHEWS ., DR MASSIMO Cook Attending Unavailable STANFORD, DR VIKY Crain Primary Care Unavailable MATTHEWS ., DR MASSIMO Cook Consulting Unavailable Viky Stanford Unavailable Asaad, Imad Unavailable MD Viky Stanford Primary Care Provider [phone] MD Melissa Imravindra Attending Provider MD Viky Stanford Primary Care Provider MD Sunny Torres Attending Provider [phone] Viky Stanford Primary Care Unavailable Asaad, Imad Admitting Unavailable Asaad, Imad Attending Unavailable Viky Stanford Primary Care Unavailable Asaad, Imad Admitting Unavailable Asaad, Imad Attending Unavailable Viky Stanford MD Primary Care Provider [phone] HAM, ECHO Mir Admitting Unavailabl e HAM, ECHO Mir Attending Unavailabl e VIKY STANFORD Primary Care Unavailable HAM, ECHO Mir Referring Unavailabl e [facility] Unavailable HAM, ECHO Mir Attending Unavailabl e HAM, ECHO Mir Referring Unavailabl e STANFORD, VIKY Primary Care Unavailable Viky Stanford MD Primary Care Provider Darrion DIAZ, Rivkarius Loomis Attending Unavailable Darrion DIAZ, Andrius Vladislav Attending Unavailable Darrion DIAZ, Andrius Loomis Attending Unavailable Darrion DIAZ, Andrius Vcuate Attending Unavailable Viky Stanford MD Primary Care Provider RAZIA WILSON Attending Unavailable RAZIA WILSON Referring Unavailable ROMELIA MCCLAIN Attending Unavailable RAZIA WILSON Attending Unavailable RAZIA WILSON Referring Unavailable RAZIA WILSON Referring Unavailable ROMELIA MCCLAIN Attending Unavailable ROMELIA MCCLAIN Attending Unavailable ROMELIA MCCLAIN Referring Unavailable ROMELIA MCCLAIN Attending Unavailable BRITTNEY RIOS Attending Unavailable Viky Stanford MD Primary Care Provider [phone] Viky Stanford MD Attending Provider Allergies Allergy Classification Reported Allergen(s) Allergy Type Date of Onset Reaction(s) Facility (8 sources) Calcitonin ([facility]) *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 Propensity to adverse reactions Comment:severe weakness Com[employer]ility Other (6 sources) calcitonin; Translations: [calcitonin] Propensity to adverse reactions 4 Other (See Comments) [facility] Comment on above: nasal spray (1 source) Fish Oils Drug Allergy 4 Other (See Comments) [email or web address] (3 sources) salmon Allergy to substance 4 Unknown Reaction [facility] Medications Current Medications Medication Drug Class(es) Dates Sig (Normalized) Sig (Original) calcium citrate 1500 mg / cholecalciferol 250 unt oral tablet (17 sources) Vitamin D Start: 03-13-2024 calcium citrate 315 mg + D2 6.25 mcg tablet 1 tablet 03/13/2024 Active Start: 03-13-2024 take 1 tablet by brijesh th once daily Calcium Citrate-Vitamin D3 (Citracal + D Maximum) 315 mg-6.25 mcg (250 unit) tablet Active 1 TAB PO Daily March 13, 2024 12:00am Complies with drug therapy Praaoqc-Cwmzjorgqs-Blmpytc D (Citracal +D3) 250-107-500 MG-MG-UNIT chewable tablet (13 sources) Calcium-Phosphor us-Vitamin D (Citracal +D3) 250-107-500 MG-MG-UNIT chewable tablet as directed Orally Active cholecalciferol 0.025 mg ora l tablet (17 sources) Vitamin D Star t: 08-0 2-20 24 take 1 tablet by mouth once daily Cholecalciferol (Vitamin D3) 25 mcg (1,000 unit) tablet Active 25 MCG PO Daily March 13, 2024 12:00am Complies with drug therapy cholecalciferol (Vitamin D-3) 50 MCG (2000 UT) tablet 1 (one) time each day at the same time. Active Citracal Plus - (8 sources) Start: 10-25-2020 Citracal Plus - as directed Orally once a day for 0 days Oct, Active 1 ml denosumab 60 mg/ml prefilled syringe (20 sources) RANK Ligand Inhibitor Start: 03-13-2024 Denosuma b (Prolia) 60 mg/mL syringe Active 60 MG SUBCUT EVERY 6 MONTHS March 13, 2024 12:00am Complies with drug therapy Start: 08-13-2019 Prolia 60MG/ML Prolia 60MG/ML, # 0, 08/13/2019, No Refill. Active Subcutaneous for 0 *Pick strength-form from [employer] for eRX* Aug, Active erythromycin 0.005 mg/mg ophthalmic ointment (2 sources) Macrolide, Macrolide Antimicrobial Start: 07-06-2023 Erythromycin 5 MG/GM 1 application into the lower eyelid of affected eye right eye 2-3 times per day for 7 days Jun, Active Magnesium (20 sources) Start: 10-25-2020 take 1 tablet by mouth once daily Magnesium 400 MG 1 tablet with a meal Orally Once a day for 0 days *Pick strength-form from [employer] for eRX* Oct, Active Magnesium 400 MG capsule as directed Orally Active magnesium oxide 400 mg oral tablet (4 sources) Start: 03-13-2024 take 1 tablet by mouth once daily Magnesium Oxide 400 mg (241.3 mg magnesium) tablet Active 400 MG PO Daily March 13, 2024 12:00am [employer] tablet with a meal Orally Once a day; Note: Source Status: Taking*Pick strength-form from [employer] for eRX*; Provider: Abdoulaye Gomez ( ) Complies with drug therapy meloxicam 15 mg oral tablet (1 source) Nonsteroidal Anti-inflammatory Drug Start: 03-19-2025 take 1 tablet by mouth once daily Meloxicam 15 mg tablet Active 15 MG PO Daily March 19, 2025 12:00am Complies with drug therapy Multiple Vitamin (8 sources) take 1 tablet by mouth once daily Multiple Vitamin 1 tablet Orally Once a day Active Multiple Vitamin (MULTIVITAMIN ADULT PO) (13 sources) take 1 capsule by mouth in the morning Multiple Vitamin (MULTIVITAMIN ADULT PO) Take 1 capsule by mouth in the morning. Active Qvmzzdwy-Lyhj-Gd -Calcium-Mins (Daily Multiple For Women) 18 mg iron-400 mcg-500 mg Ca tablet (4 sources) Start: 03-13-2024 take 1 tablet by mouth once daily Uhdnlvlq-Drmt-Np-Ca lcium-Mins (Daily Multiple For Women) 18 mg iron-400 mcg-500 mg Ca tablet Active 1 TAB PO Daily March 13, 2024 12:00am Complies with drug therapy Start: 03-13-2024 take 1 tablet by brijesh th once daily Wmtrsbdm-Gxfv-Vt-Calcium-Mins (Daily Mul tiple For Women) 18 mg iron-400 mcg-500 mg Ca tablet Active 1 TAB PO Daily March 13, 2024 12:00am tiZANidine 2 mg oral tablet (1 source) Central alpha-2 Adrenergic Agonist Start: 06-09-2024 take 1 tablet by mouth three times daily as needed for pain tiZANidine (ZANAFLEX) 2 MG tablet Take 1 tablet by mouth 3 times daily as needed (pain/muscle spasm) 30 tablet 06/09/2024 Active Vitamin D3 1000 UNIT (8 sources) take 1 tablet by mouth once daily Vitamin D3 1000 UNIT 1 tablet Orally Once a day Active Completed/Discontinued Medications Medication Drug Class(es) Dates Sig (Normalized) Sig (Original) acetaminophen 325 mg / HYDROcodone bitartrate 5 mg oral tablet (3 sources) Opioid Agonist Start: 07-03-2024 End: 09-14-2024 Hydrocodone-Acetami nophen 5-325 mg tablet Discontinued TAB PO every 6 to 8 hours July 03, 2024 1:00am September 14, 2024 11:52am Start: 07-03-2024 End: 09-14-2024 Hydrocodone-Acetaminophen 5- 325 mg tablet Discontinued TAB PO every 6 to 8 hours July 03, 2024 1:00am September 14, 2024 11:52am baclofen 10 mg oral tablet (20 sources) gamma-Aminobutyric Acid-ergic Agonist Start: 10-25-2020 End: 05-05-2024 take 1 tablet by mouth once daily Baclofen 10 mg tablet Discontinued 10 MG PO Daily October 02, 2023 1:00am May 05, 2024 9:26am budesonide 3 mg delayed release oral capsule (20 sources) Corticosteroid Start: 03-29-2024 End: 10-16-2024 take 2 capsules by mouth once daily Budesonide 3 mg capsule,delayed,e xtend.release Discontinued 6 MG PO Daily 60 September 14, 2024 11:58am October 16, 2024 2:42pm to be taken with previous budesonide taper Start: 03-27-2024 End: 11-30-2024 take 1 capsule by mouth once daily Budesonide 3 mg capsule,delayed,extend.release Discontinued 3 MG PO Daily October 16, 2024 2:38pm November 30, 2024 2:21pm to be taken with previous budesonide taper Start: 10-04-2023 End: 03-06-2024 take 3 tablets by mouth once daily, then take 2 tablets by mouth once daily, then take 1 tablet by mouth once daily Budesonide 3 mg capsule,delayed,extend.release Discontinued 3 MG PO Daily [id number] October 04, 2023 1:00am March 06, 2024 9:13am 3 tabs daily for 60 days, 2 tabs daily for 14 days, 1 tab daily for 14 days 5 ml bupivacaine hydrochloride 5 mg/ml injection (12 sources) Amide Local Anesthetic Start: 12-29-2024 End: 12-29-2024 bupivacaine (Marcaine) 0.5 % injection 0.5 mL Start: 12-29-2024 End: 12-29-2024 0.5 mL, Once PRN Procedure, Starting on Sat12/29/24 at 1150, For 1 dose Start: 12-29-2024 End: 12-29-2024 bupivacaine PF (Marcaine) 0. 5 % injection 1 mL Start: 12-29-2024 End: 12-29-2024 1 mL, Injection, Once PRN Pr ocedure, Starting on Sat12/29/24 at 1150, For 1 dose Start: 12-25-2024 End: 12-25-2024 bupivacaine (Marcaine) 0.5 % injection 0.5 mL Start: 12-25-2024 End: 12-25-2024 0.5 mL, Once PRN Procedure, Starting on Sat12/25/24 at 0905, For 1 dose diclofenac sodium 50 mg delayed release oral tablet (20 sources) Nonsteroidal Anti-inflammatory Drug Start: 10-02-2023 End: 05-05-2024 take 1 tablet by mouth once daily Diclofenac Sodium 50 mg tablet,delayed release (DR/EC) Discontinued 50 MG PO Daily October 02, 2023 1:00am May 05, 2024 9:27am Start: 10-25-2020 take 1 tablet by brijesh th every twelve hours Diclofenac Sodium 50 MG 1 tablet as needed Orally Twice a day for 0 days Oct, Active dicyclomine hydrochloride 20 mg oral tablet (3 sources) Anticholinergic Start: 06-03-2024 End: 07-03-2024 take 1 tablet by mouth three times daily before mealtime Dicyclomine 20 mg tablet Discontinued 20 MG PO Three times daily June 03, 2024 12:00am July 03, 2024 11:14am Take 1 tablet before meals 3 times a day escitalopram 10 mg oral tablet (16 sources) Serotonin Reuptake Inhibitor Start: 03-16-2024 End: 03-20-2024 take 1 tablet by mouth once daily Escitalopram Oxalate (Lexapro) 10 mg tablet Discontinued 10 MG PO Daily March 16, 2024 12:00am March 20, 2024 7:22am hyoscyamine sulfate 0.125 mg oral tablet (12 sources) Start: 03-13-2024 End: 03-16-2024 take 1 tablet by mouth four times daily as needed Hyoscyamine Sulfate 0.125 mg tablet Discontinued MG PO March 13, 2024 12:00am March 16, 2024 9:08am [employer] tablet as needed Orally qid prn; Note: Source Status: Refill; Provider: Abdoulaye Crain take 1 tablet by brijesh th four times daily as needed Levsin 0.125 MG 1 tablet as needed Orall y qid prn for 10 days Active 1 ml methylPREDNISolone acetate 40 mg/ml injection (16 sources) Corticosteroid Start: 12-29-2024 End: 12-29-2024 methylPREDNISolone acetate (DEPO-Medrol) injection 20 mg Start: 12-29-2024 End: 12-29-2024 methylPREDNISolone acetate ( DEPO-Medrol) injection 40 mg Start: 12-29-2024 End: 12-29-2024 40 mg, Intra-articular, Once PRN Procedure, Starting on Sat12/29/24 at 1150, For 1 dose Start: 12-29-2024 End: 12-29-2024 20 mg, Intra-articular, Once PRN Procedure, Starting on Sat12/29/24 at 1150, For 1 dose Start: 12-25-2024 End: 12-25-2024 methylPREDNISolone acetate ( DEPO-Medrol) injection 20 mg Start: 12-25-2024 End: 12-25-2024 20 mg, Intra-articular, Once PRN Procedure, Starting on Sat12/25/24 at 0905, For 1 dose Start: 04-15-2024 End: 04-15-2024 methylPREDNISolone acetate ( DEPO-Medrol) injection 40 mg Start: 04-15-2024 End: 04-15-2024 40 mg, Intra-articular, Once PRN Procedure, Starting on Sat04/15/24 at 1143, For 1 dose pantoprazole 40 mg delayed release oral tablet (20 sources) Proton Pump Inhibitor Start: 07-15-2023 End: 08-03-2024 take 1 tablet by mouth once daily Pantoprazole 40 mg tablet,delayed release (DR/EC) Discontinued 40 MG PO Daily October 02, 2023 11:00am October 04, 2023 3:42pm take 40 mg by mouth once daily P ANTOPRAZOLE SODIUM PO Take 40 mg by mouth daily Active pregabalin 75 mg oral capsule (3 sources) Start: 07-03-2024 End: 09-14-2024 take 1 mg by mouth twice daily Pregabalin 75 mg capsule Discontinued MG PO Twice daily July 03, 2024 1:00am September 14, 2024 11:52am Sod Picosulf-Mag Ox-Citric Ac (8 sources) Start: 02-20-2024 End: 03-06-2024 take 1 [...] at 9pm orally the day before colonoscopy. traMADol hydrochloride 50 mg oral tablet (20 sources) Opioid Agonist Start: 03-06-2024 End: 06-03-2024 take 1 tablet by mouth twice daily as needed for pain Tramadol 50 mg tablet Discontinued 50 MG PO Twice daily as needed for pain March 06, 2024 12:00am June 03, 2024 10:07am Start: 10-25-2020 take 1 tablet by brijesh th every twenty-four hours traMADol HCl 50 MG 1 tablet as needed Orally Once a day for 0 days PRN Oct, Active Problems Active Problems Problem Classification Problem Date Documented Da te Episodic/Chronic Abdominal pain (12 sources) Abdominal pain; Translations: [Unspecified abdominal pain] Episodic Adjustment disorders (5 sources) Reactive depression (situational); Translations: [Adjustment disorder with depressed mood] 03-17-2024 Chronic Esophageal disorders (20 sources) Gastro-esophageal reflux disease with esophagitis; Translations: [Gastro-esophageal reflux disease with esophagitis, without bleeding] Onset: 09-05-2018 Chronic Joint disorders and dislocations; trauma-related (4 sources) Chondromalacia of left patella; Translations: [Chondromalacia patellae, left knee] 12-29-2024 Chronic Noninfectious gastroenteritis (9 sources) Collagenous colitis; Translations: [Collagenous colitis] 05-05-2024 Chronic Noninfectious gastroenteritis (14 sources) Noninfective gastroenteritis and colitis, unspecified; Translations: [Chronic diarrhea] Episodic Nutritional deficiencies (10 sources) Vitamin D deficiency; Translations: [Vitamin D deficiency, unspecified] Onset: 01-19-2015 Chronic Osteoarthritis (19 sources) Osteoarthritis; Translations: [Unspecified osteoarthritis, unspecified site] Onset: 10-28-2013 04-27-2024 Chronic Osteoporosis (20 sources) Age-related osteoporosis without current pathological fracture; Translations: [Primary osteoporosis] Onset: 10-28-2013 Chronic Other aftercare (8 sources) 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; 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] Episodic Other connective tissue disease (1 source) Muscle weakness (generalized); Translations: [MUSCLE WEAKNESS GENERALIZED] Onset: 09-12-2022 Episodic Other connective tissue disease (1 source) Abnormal posture; Translations: [ABNORMAL POSTURE] Onset: 09-12-2022 Episodic Other connective tissue disease (1 source) Pain in left toe(s) Episodic Other connective tissue disease (2 sources) Pain in left thumb; Translations: [Pain in left finger(s)] 12-25-2024 Episodic Other connective tissue disease (2 sources) Pain of left hand; Translations: [Pain in left hand] 12-25-2024 Episodic Other connective tissue disease (2 sources) Pain in right thumb; Translations: [Pain in right finger(s)] 12-28-2024 Episodic Other gastrointestinal disorders (3 sources) Irritable bowel syndrome with diarrhea; Translations: [Irritable bowel syndrome with diarrhea] 08-03-2024 Chronic Other gastrointestinal disorders (3 sources) Irritable bowel syndrome with diarrhea; Translations: [Irritable bowel syndrome] 08-03-2024 Chronic Other gastrointestinal disorders (2 sources) Change in [...] Onset: 02-26-2022 Chronic Other non-traumatic joint disorders (2 sources) Arthritis of first carpometacarpal joint of left hand 12-25-2024 Chronic Other non-traumatic joint disorders (2 sources) Arthritis of first carpometacarpal joint of right hand 12-29-2024 Chronic Other non-traumatic joint disorders (1 source) Arthritis of left knee 03-15-2025 Chronic Other non-traumatic joint disorders (6 sources) Pain in left knee; Translations: [Pain [...] Test Name Value Interpretation Reference Range Facility Office Visiton 03-11-2025 Follow-up visit [id number] Danae Ko 1945 F Date Provider Department Center 03/11/2025 [facility] [place] [facility] No family history on file Level of Service:81448 [place] OFFICE/OUTPATIENT NEW LOW [facility] 30 MINUTES (GC) Reason for Visit and Comments: Pain [136] Normal [facility] No Panel Informationon 12-29 LAUREN Tao 12/29/2024 12:00 PM S Inj/Asp: R thumb CMC on 12/29/2024 11:50 AM Indications: pain and joint swelling Details: 21 G needle, dorsal approach Medications: 20 mg methylPREDNISolone acetate 40 MG/ML; 0.5 mL bupivacaine 0.5 % Outcome: tolerated well, no immediate complications Consent was given by the patient. Patient was prepped and draped in the usual sterile fashion. [facility] e LAUREN Tao 12/29/2024 12:00 PM L Inj/Asp: L knee on 12/29/2024 11:50 AM Indications: pain Details: 22 G needle, anterolateral approach Medications: 40 mg methylPREDNISolone acetate 40 MG/ML; 1 mL bupivacaine PF 0.5 % Outcome: tolerated well, no immediate complications UTILIZING ASEPTIC TECHNIQUE PT GIVEN INJECTION IN LEFT KNEE, NEUROVASC INTACT S/P INJ, TOLERATED WELL Procedure, treatment alternatives, risks and benefits explained, specific risks discussed. Consent was given by the patient. Patient was prepped and draped in the usual sterile fashion. [employer] Finger - right 2 [employer] 12-29-2024 Imaging Result: AP, lateral and oblique right thumb: No acute fracture or dislocation Advanced degenerative changes at CMC joint right thumb, subchondral sclerosis, bony erosion and enthesophyte's Mild to moderate wrist arthritic changes at DRUJ. Impression: Severe CMC arthritis right thumb. [employer] Radiology Study observation (narrative) [facility] [employer] XR Knee - left 1 or 2 Viewso n 12-29-2024 Imaging Result: AP and Lateral weight bearing Left knee No acute fracture or dislocation Slight osteopenia, mild effusion Advanced arthritic changes articular surface patella-femoral joint Weight bearing surface grossly symmetric, but chondrocalcinosis noted 2 small calcification posterior knee? Loose body or vascular Impression: No acute bony process with advanced patella femoral arthritis left knee [employer] Radiology Study observation (narrative) [facility] [employer] No Panel Informationon 12-25 LAUREN Tao 12/25/2024 9:10 AM S Inj/Asp: L thumb CMC on 12/25/2024 9:05 AM Indications: pain and joint swelling Details: 22 G needle, dorsal approach Medications: 20 mg methylPREDNISolone acetate 40 MG/ML; 0.5 mL bupivacaine 0.5 % Outcome: tolerated well, no immediate complications Procedure, treatment alternatives, risks and benefits explained, specific risks discussed. Consent was given by the patient. Patient was prepped and draped in the usual sterile fashion. [employer] XR Hand - left 3 [facility] Imaging Result: 3 view left hand: No acute fracture or dislocation Bone on bone articulation CMC joint of thumb No effusion No soft tissue swelling Minimal wrist arthritis Impression- severe cmc arthritis left thumb joint. Funding [employer] Radiology Study observation (narrative) [facility] [employer] Estimated glomerular filtrat ion rate (GFR) non- Americanon 10-01-2024 GFR/1.73 sq M.predicted among non-blacks MDRD (S/P/Bld) [Vol rate/Area] Estimated glomerular filtration rate (GFR) non- Low >=60 mL/min/1.73m 2 [facility] - Chemistry and C hemistry - challengeon 10-01-2024 Calcium [Mass/Vol] 9.5 mg/dL 8.5-10.1 [facility] Chloride [Moles/Vol] 106 mmol/L 98-107 [facility] CO2 [Moles/Vol] 28.3 mmol/L 21.0-32.0 [facility] Creatinine [Mass/Vol] 1.03 mg/dL High 0.55-1.02 [facility] GFR/1.73 sq M.predicted MDRD (S/P/Bld) [Vol rate/Area] mL/min/{1.73_m2} >=60 mL/min/1.73m 2 [facility] Glucose [Mass/Vol] 87 mg/dL 74-106 [facility] Potassium [Moles/Vol] 3.7 mmol/L 3.5-5.1 [facility] Sodium [Moles/Vol] 143 mmol/L 136-145 [facility] Urea nitrogen [Mass/Vol] 22.0 mg/dL High 7.0-18.0 [facility] Urea nitrogen/Creatinine [Mass ratio] 21.4 mg/mg [facility] No Panel Informationon 10-01 25-Hydroxy Vitamin D Total 79.8 ng/mL [facility] Comment on above: <20 ng/mL Vit D defi cient20-<30 ng/mL Vit D -388 ng/mL Vit D sufficient>100 ng/mL Potential Toxicity Serum or plasma anion gap de terminationon 10-01-2024 Anion gap [Moles/Vol] Serum or plasma anion gap determination [facility] CT PELVIS WO CONTRASTon 06-12 CT PELVIS [...] Quyen Ruffin MD 06/28/24 Final result Normal [facility] CT Pelvis WO contraston - Fusion at the right SI joint. No osseous fusion at this time. [facility] RIS CONSOLIDATED EXAMINATION: CT OF THE PELVIS [...] joint. No osseous fusion at this time. [email or web address] CT Pelvis WO contrastOrdered By: Quyen Ruffin on 06-28-2024 [email or web address] Work Phone: CT Pelvis WO contraston 06-12 Radiology Study observation (narrative) [email or web address] FLUORO FOR SURGICAL PROCEDUR ESon 06-09-2024 FLUORO FOR SURGICAL PROCEDURES Radiology exam is complete. No Radiologist dictation. Please follow up with ordering provider. Final result Normal [facility] EKG 12 LeadOrdered By: Carter Machuca on 06-03-2024 Atrial Rate 87 BPM [email or web address] Work Phone: P [place] 32 degrees [email or web address] Work Phone: P-R Interval 136 ms [email or web address] Work Phone: Q-T Interval 350 ms [email or web address] Work Phone: QRS Duration 74 ms [email or web address] Work Phone: QTc Calculation (Bazett) 421 ms [email or web address] Work Phone: R [place] 12 degrees [employer] Phone: T [place] 45 degrees [email or web address] Work Phone: Ventricular Rate 87 BPM [employer] Work Phone: [email or web address] Work Phone: EKG 12 Leadon 06-03-2024 Normal sinus rhythm Normal ECG No previous ECGs available [facility] STCarter Jose, - 06/03/2024 Normal sinus rhythm Normal ECG No previous ECGs available [email or web address] CBC with Auto Differentialon 10-22-2024 Basophils (Bld) [#/Vol] 0.06 10*3/uL [facility] Basophils/100 WBC (Bld) 1 % 0 - 2 % [facility] Eosinophils (Bld) [#/Vol] 0.09 10*3/uL [facility] Eosinophils/100 WBC (Bld) 1 % 1 - 4 % [facility] Erythrocyte distribution width (RBC) [Ratio] 12.5 % 11.8 - 14.4 % [facility] Hematocrit (Bld) [Volume fraction] 41.5 % 36.3 - 47.1 % [facility] Hemoglobin (Bld) [Mass/Vol] 13.2 g/dL 11.9 - 15.1 g/dL [facility] Immature granulocytes (Bld) [#/Vol] 0.05 10*3/uL [facility] Immature granulocytes/100 WBC (Bld) 1 % High 0 [facility] Interpretation and review of laboratory results Abnormal [facility] Lymphocytes/100 WBC (Bld) 20 % Low 24 - 43 % [facility] Lymphocytes/100 WBC (Bld) 1.62 % [facility] MCH (RBC) [Entitic mass] 31.1 pg 25.2 - 33.5 pg [facility] MCHC (RBC) [Mass/Vol] 31.8 g/dL 28.4 - 34.8 g/dL [facility] MCV (RBC) [Entitic vol] 97.6 fL 82.6 - 102.9 fL [facility] Monocytes/100 WBC (Bld) 10 % 3 - 12 % [facility] Monocytes/100 WBC (Bld) 0.80 % [facility] Neutrophils/100 WBC (Bld) 67 % High 36 - 65 % [facility] Nucleated RBC/100 WBC (Bld) [Ratio] 0.0 % 0.0 per 100 WBC [facility] Platelet mean volume (Bld) [Entitic vol] 10.0 fL 8.1 - 13.5 fL [facility] Platelets (Bld) [#/Vol] 247 10*3/uL [facility] RBC (Bld) [#/Vol] 4.25 10*6/uL 3.95 - 5.1 1 m/uL [facility] Segmented neutrophils/100 WBC (Bld) 5.57 % [facility] WBC other (Bld) [#/Vol] 8.2 [facility] CBC with Diffon 06-02-2024 Abs. Basophil 0.06 k/uL Normal 0.00-0.20 [facility] Comment on above: Performed By: #### C DP #### [facility] [address] [place] [id number] Animal Care Provider: Arpit Cruz MD Abs.Imm.Granulocyte 0.05 k/uL Normal 0.00-0.30 [facility] Comment on above: Performed By: #### C DP #### [address] [address] Animal Care Provider: Arpit Cruz MD Abs.Neutrophil (Seg) 5.57 k/uL Normal 1.50-8.10 [facility] Comment on above: Performed By: #### C DP #### [facility] [address] [place] [id number] Animal Care Provider: Arpit Cruz MD Basophils/100 WBC (Bld) 1 % Normal 0-2 [facility] Comment on above: Performed By: #### C DP #### [address] [address] Animal Care Provider: Arpit Cruz MD Eosinophils (Bld) [#/Vol] 0.09 10*3/uL Normal 0.00-0.44 [facility] Comment on above: Performed By: #### C DP #### [facility] [address] [place] [address] Animal Care Provider: Arpit Cruz MD Eosinophils/100 WBC (Bld) 1 % Normal 1-4 [facility] Comment on above: Performed By: #### C DP #### [address] [address] Animal Care Provider: Arpit Cruz MD Erythrocyte distribution width (RBC) [Ratio] 12.5 % Normal 11.8-14.4 [facility] Comment on above: Performed By: #### C DP #### [address] [address] Animal Care Provider: Arpit Cruz MD Hematocrit (Bld) [Volume fraction] 41.5 % Normal 36.3-47.1 [facility] Comment on above: Performed By: #### C DP #### [address] [address] Animal Care Provider: Arpit Cruz MD Hemoglobin (Bld) [Mass/Vol] 13.2 g/dL Normal 11.9-15.1 [facility] Comment on above: Performed By: #### C DP #### [address] [address] Animal Care Provider: Arpit Cruz MD Immature granulocytes/100 WBC (Bld) 1 % High 0 [facility] Comment on above: Performed By: #### C DP #### [address] [address] Animal Care Provider: Arpti Cruz MD Lymphocytes (Bld) [#/Vol] 1.62 10*3/uL Normal 1.10-3.70 [facility] Comment on above: Performed By: #### C DP #### [address] [address] Animal Care Provider: Arpit Crzu MD Lymphocytes/100 WBC (Bld) 20 % Low 24-43 [facility] Comment on above: Performed By: #### C DP #### [address] [address] Animal Care Provider: Arpit Cruz MD MCH (RBC) [Entitic mass] 31.1 pg Normal 25.2-33.5 [facility] Comment on above: Performed By: #### C DP #### [address] [address] Animal Care Provider: Arpit Cruz MD MCHC (RBC) [Mass/Vol] 31.8 g/dL Normal 28.4-34.8 [facility] Comment on above: Performed By: #### C DP #### [address] [address] Animal Care Provider: Arpit Cruz MD MCV (RBC) [Entitic vol] 97.6 fL Normal 82.6-102.9 [facility] Comment on above: Performed By: #### C DP #### [address] [address] Animal Care Provider: Arpit Cruz MD Monocytes (Bld) [#/Vol] 0.80 10*3/uL Normal 0.10-1.20 [facility] Comment on above: Performed By: #### C DP #### [address] [address] Animal Care Provider: Arpit Cruz MD Monocytes/100 WBC (Bld) 10 % Normal 3-12 [facility] Comment on above: Performed By: #### C DP #### [address] [address] Animal Care Provider: Arpit Cruz MD Neutrophil (Seg) 67 % High 36-65 [facility] Comment on above: Performed By: #### C DP #### [address] [address] Animal Care Provider: Arpit Cruz MD NRBC Automated 0.0 per 100 WBC Normal 0.0 [facility] Comment on above: Performed By: #### C DP #### [address] [address] Animal Care Provider: Arpit Cruz MD Platelet mean volume (Bld) [Entitic vol] 10.0 fL Normal 8.1-13.5 [facility] Comment on above: Performed By: #### C DP #### [facility] [address] [place] [address] Animal Care Provider: Arpit Cruz MD Platelets (Bld) [#/Vol] 247 10*3/uL Normal 138-453 [facility] Comment on above: Performed By: #### C DP #### [facility] [address] [place] [address] Animal Care Provider: Arpit Cruz MD RBC (Bld) [#/Vol] 4.25 10*6/uL Normal 3.95-5.11 [facility] Comment on above: Performed By: #### C DP #### [facility] [address] [place] [address] Animal Care Provider: Arpit Cruz MD WBC (Bld) [#/Vol] 8.2 10*3/uL Normal 3.5-11.3 [facility] Comment on above: Performed By: #### C DP #### [facility] [address] [place] [address] Animal Care Provider: Arpit Cruz MD XR Knee - left 3 [facility] Result: April 15, 2024 x-rays AP weight-bearing bilateral knees lateral and sunrise of the left knee demonstrate medial compartment narrowing bilateral knees left slightly more advanced than the right. Subchondral sclerosis is noted. Subchondral sclerosis is noted in the patellofemoral joint. No fractures detected. Impression: Osteoarthritis bilateral knees Echo Velazquez D.O. [facility] XR Knee - left 3 ViewsOrdere d By: Cullen Velazquez on 04-16-2024 [facility] Work Phone: No Panel Informationon 04-15 Romelia Mcclain NP 04/17/2024 6:43 AM L Inj/Asp: L knee on 04/15/2024 11:43 AM Indications: pain Details: 20 G needle, anterolateral approach Medications: 40 mg methylPREDNISolone acetate 40 MG/ML Procedure, treatment alternatives, risks and benefits explained, specific risks discussed. Consent was given by the patient. [facility] XR Knee - left 3 [facility] Study observation (narrative) [facility] Pathology Request for Lab Co rpon 03-20-2024 Pathology Request for Lab Dorothy Normal [facility] Comment on above: Order Comment: PATHO LOGY GI SPECIMEN Result Comment: See report. Scanned copy available in EMR. PERFORMED BY: [place] [address] PATHOLOGIST PROGRAMMING INSTRUCTOR HELENE LEON M.D. Performed By: #### P ATH TO [facility] #### [address] Guevara 10-02-2023 L Specimen: [id number] Received: 10/02/23 Status: OJ Suresh Num: [id number] Spec Type: Surgical Subm Dr: Sunny Torres MD Tissues: A GASTRIC FOR HP (GASTRIC BX R/O H.PYLORI) B Colon Biopsy (RANDOM COLON BX R/O MICROSCO) Procedures: HE/4, Gross/Micro L4/2, H PYLORI Age/ Patient Sex Location Account Attending Physician Arianne Ko 78/F [id number] Sunny Torres MD SPEC NUM: [id number] RECD: 10/02/23 STATUS: OJ SURESH NUM: [id number] TEO: 10/02/[address]: Sunny Torres MD ENTERED: 10/02/[address] [facility] DR: SPEC TYPE: Surgical [...] date of and random colon ---- Specimen: [id number] Received: 10/02/23 Status: OJ Suresh Num: [id number] Spec Type: Surgical Subm Dr: Sunny Torres MD Tissues: A GASTRIC FOR HP (GASTRIC BX R/O H.PYLORI) B Colon Biopsy (RANDOM COLON BX R/O MICROSCO) Procedures: HE/4, Gross/Micro L4/2, H PYLORI ---- Patient: KoArianne pollack [id number] (Continued) ---- Specimen: [id number] Received: 10/02/23 (Continued) Gross Description (Continued) Signed (signature on file) Patito Grimm MD 10/03/23 1430 ---- Specimen: [id number] Received: 10/02/23 Status: OJ Suresh Num: [id number] Spec Type: Surgical Subm Dr: Sunny Torres MD Tissues: A GASTRIC FOR HP (GASTRIC BX R/O H.PYLORI) B Colon Biopsy (RANDOM COLON BX R/O MICROSCO) Procedures: HE/4, Gross/Micro L4/2, H PYLORI ---- Patient: KoDanae pollacke [id number] (Continued) ---- Specimen: [id number] Received: 10/02/23 (Continued) Gross Description (Continued) biopsy are 2 galvan translucent soft tissue fragments, 0.3 and 0.6 cm in greatest dimensions. Entirely submitted in one cassette labeled B1. CPT Codes 42272n6 10065 ---- ---- Specimen: [id number] Received: 10/02/23 Status: OJ Suresh Num: [id number] Spec Type: Surgical Subm Dr: Sunny Torres MD Tissues: A GASTRIC FOR HP (GASTRIC BX R/O H.PYLORI) B Colon Biopsy (RANDOM COLON BX R/O MICROSCO) Procedures: HE/4, Gross/Micro L4/2, H PYLORI ---- Patient: Arianne Ko [id number] (Continued) ---- Signed (signature on file) Patito Grimm MD 10/03/23 1430 Normal [facility] CALCIUMon 10-03-2022 Calcium [Mass/Vol] 8.9 mg/dL Normal 8.5-10.1 [facility] Comment on above: Performed By: #### VALERIO MADRIGAL #### [facility] [address] [place] [address] Dr. Dang Grimm CREATININEon 10-03-2022 Creatinine [Mass/Vol] 1.03 mg/dL Critically high 0.55-1.02 [facility] Comment on above: Performed By: #### VALERIO MADRIGAL #### [facility] [address] [place] [address] Dr. Dang Grimm EGFR-AF IRAQI >60 Normal >=60 [facility] Comment on above: Performed By: #### Bhumika ADAMS, VALERIO #### [facility] [address] [place] [address] Dr. Dang Grmim EGFR-NON AF IRAQI 52 mL/min/1.73m2 Critically low >=60 [facility] Comment on above: Performed By: #### Bhumika ADAMS, VALERIO #### [facility] [address] [place] [address] Dr. Dang Grimm [facility]on SARS-CoV-2 (COVID-19) RNA GENARO+probe Ql (Unsp spec) Not detected Normal NOT DETECTED [facility] Comment on above: Result Comment: This test is not yet approved or cleared by the [place] FDA. When there are no FDA-approved or cleared tests available, and other criteria are met, FDA can make tests available under an emergency access mechanism called an Emergency Use Authorization (EUA). The EUA for this test is supported by the Pedorthist of Health and Human Service's (HHS's) declaration [...] consistent with SARS-CoV-2. Performed By: #### C [facility] #### [facility] [address] [address] [address] Dang Grimm ANAon 04-20-2022 OCTAVIA PATTERN SPECKLED Normal [facility] Comment on above: Result Comment: The [...] authority. Performed By: #### 1 0196 #### [facility] [address] OCTAVIA SCREEN 1:40 Normal <1:40,1:40 [facility] Comment on above: Result Comment: Test performed using MELCHOR IFA OCTAVIA Hep-2 Test, a pre-standardized assay designed for the qualitative and semi-quantitative detection of antinuclear antibodies. Performed By: #### 1 0196 #### [facility] [address] C REACTIVE PROTEINon 022 CRP [Mass/Vol] 2.5 mg/L Normal 0.0-7.0 [facility] Comment on above: Performed By: #### 6 1405, 08629 #### [facility] [address] CBC COMPLETE BLOOD COUNTon 0 04-20-2022 Erythrocyte distribution width (RBC) [Ratio] 12.4 % Normal 11.5-15.0 [facility] Comment on above: Performed By: #### 5 6506, 78956 #### [facility] [address] [place] [address], [facility] Hematocrit (Bld) [Volume fraction] 41.6 % Normal 36.0-45.0 [facility] Comment on above: Performed By: #### 5 6506, 40976 #### [facility] [address] [place] [address], [facility] Hemoglobin (Bld) [Mass/Vol] 13.7 g/dL Normal 12.0-15.0 [facility] Comment on above: Performed By: #### 5 650, 69747 #### [facility] [address] [place] [address], [facility] MCH (RBC) [Entitic mass] 31.4 pg Normal 27.0-33.0 [facility] Comment on above: Performed By: #### 5 650, 37742 #### [facility] [address] MCHC (RBC) [Mass/Vol] 32.9 g/dL Normal 32.0-35.0 [facility] Comment on above: Performed By: #### 5 6506, 73813 #### [facility] [address] [place] [address], [facility] MCV (RBC) [Entitic vol] 95.2 fL Normal 82.0-98.0 [facility] Comment on above: Performed By: #### 5 6506, 00810 #### [facility] [address] [place] [address], [facility] Nucleated RBC/100 WBC (Bld) [Ratio] 0 % Normal 0-0 [facility] Comment on above: Performed By: #### 5 6506, 82860 #### [facility] [address] [place] [address], [facility] PLAT CNT 248 10*3/uL Normal 150-400 [facility] Comment on above: Performed By: #### 5 6506, 85180 #### [address] [address], [facility] RBC (Bld) [#/Vol] 4.37 10*6/uL Normal 3.80-5.00 [facility] Comment on above: Performed By: #### 5 6506, [address] #### [place] [address], [facility] WBC (Bld) [#/Vol] 5.54 10*3/uL Normal 4.00-10.60 [facility] Comment on above: Performed By: #### 5 6506, 08561 #### [id number] [place] [address] [facility] CERVICAL SPINE 4 OR 5 VIEWS [facility] Department of Radiology [address] [place] [id number] ======== Patient Name: ARIANNE KO : 1945 Sex: F Age: Race: White Pt. Location: [facility] Patient Status: O Ordered Date: 04/20/2022 10:50:00 AM Completed Date: 04/20/2022 11:42 AM Requesting Provider: MICHAEL HAHN Attending Provider: ARIADNA NOLAN Report Copy To: Signs & Symptoms: M54.2 Cervicalgia I10 History: [place] Comments: Views (X-RAY, CERVICAL SPINE): AP, Lateral, [...] C3 Electronically signed: Christian Upton. Transcribed by: [email or web address], User Resident: Electronically Signed by: CHRISTIAN UPTON @ 04/20/2022 02:33 PM Normal [facility] Comment on above: Order Comment: Views (X-RAY, CERVICAL SPINE): AP, Lateral, Odontoid, Flexion, Extension COMP METABOLIC PANELon 04-20 Albumin [Mass/Vol] 4.1 g/dL Normal 3.5-5.7 [facility] Comment on above: Performed By: #### 3 5515, 58498, 61803 #### [facility] [address] [place] [address], [facility] ALKALINE PHOSPH 63 IU/L Normal 34-104 [facility] Comment on above: Performed By: #### 3 5515, 56839, 91286 #### [facility] [address] [place] [address], [place] ALT [Catalytic activity/Vol] 15 U/L Normal 7-52 [facility] Comment on above: Performed By: #### 3 5515, 96848, 83355 #### [facility] [address] [place] [address], [place] AST [Catalytic activity/Vol] 22 U/L Normal 13-39 [facility] Comment on above: Performed By: #### 3 5515, 08515, 48690 #### [facility] [address] [place] [address], [place] Bilirubin [Mass/Vol] 0.5 mg/dL Normal 0.3-1.0 [facility] Comment on above: Performed By: #### 3 5515, 38570, 78428 #### [facility] [address] [place] [address], [place] Calcium [Mass/Vol] 10.2 mg/dL Normal 8.6-10.3 [facility] Comment on above: Performed By: #### 3 5515, 31772, 63275 #### [facility] [address] [place] [address], [place] Chloride [Moles/Vol] 105 mmol/L Normal 98-107 [facility] Comment on above: Performed By: #### 3 5515, 20805, 75158 #### [facility] [address] [place] [address], [place] CO2 [Moles/Vol] 25 mmol/L Normal 21-31 [facility] Comment on above: Performed By: #### 3 5515, 17519, 57277 #### [facility] [address] [place] [address], [place] Creatinine [Mass/Vol] 0.95 mg/dL Normal 0.60-1.20 [facility] Comment on above: Performed By: #### 3 5515, 28415, 37691 #### [facility] [address] [place] [address], [place] GFR/1.73 sq M.predicted among non-blacks MDRD (S/P/Bld) [Vol rate/Area] mL/min/{1.73_m2} Normal >60 [facility] Comment on above: Result Comment: [facility]'s estimated glomerular filtration rate (eGFR) will [...] of individuals. Performed By: #### 3 5515, 72206, 18844 #### [facility] [address] [place] [address], [place] Glucose [Mass/Vol] 88 mg/dL Normal 70-100 [facility] Comment on above: Performed By: #### 3 5515, 89622, 86964 #### [facility] [address] [place] [address], [place] Potassium [Moles/Vol] 4.5 mmol/L Normal 3.5-5.1 [facility] Comment on above: Performed By: #### 3 5515, 60372, 41202 #### [facility] [address] [place] [address], [place] Protein [Mass/Vol] 6.8 g/dL Normal 6.0-8.3 [facility] Comment on above: Performed By: #### 3 5515, 40220, 65493 #### [facility] [address] [place] [address], [place] Sodium [Moles/Vol] 138 mmol/L Normal 136-145 [facility] Comment on above: Performed By: #### 3 5515, 07705, 87267 #### [facility] [address] [place] [address], [place] Urea nitrogen [Mass/Vol] 29 mg/dL High 7-25 [facility] Comment on above: Performed By: #### 3 5515, 02874, 48674 #### [facility] [address] CYCLIC [place] PEPTIDE [place] [id number] 04-20-2022 CYCLIC CIT PEP 2 Units Normal 0-19 [facility] Comment on above: [...] be monitored and testing repeated. Performed By: [facility] [address] [place] [address] Pain Medicine Physician: Brett Tamez MD, PhD FERRITINon 04-20-2022 Ferritin [Mass/Vol] 43 ng/mL Normal 11-[address] [facility] Comment on above: Performed By: #### 3 5515, 80508, 48661 #### [facility] [address] [place], [place] [address] [place] [address] HAND LEFT 3 VWSon 04-20-2022 HAND LEFT 3 VWS [facility] Department of Radiology [address] [place] [address] ======== Patient Name: ARIANNE KO : 1945 Sex: F Age: Race: White Pt. Location: [facility] Patient Status: O Ordered Date: 04/20/2022 10:50:00 AM Completed Date: 04/20/2022 11:42 AM Requesting Provider: MICHAEL HAHN Attending Provider: ARIADNA NOLAN Report Copy To: Signs & Symptoms: M79.641 Pain in right hand I10 History: [place] Comments: Evaluate Exam: HAND LEFT 3 VWS [...] report. Electronically signed: Chelita Lazcano. Transcribed by: [email or web address], User Resident: NIRMALA MONGE Electronically Signed by: CHELITA LAZCANO @ 04/20/2022 01:29 PM I personally read this/these film(s) with this resident Normal [facility] Comment on above: Order Comment: Evalu ate HAND RIGHT 3 VWSon 2 HAND RIGHT 3 S [facility] Department of Radiology [address] [place] [address] ======== Patient Name: ARIANNE KO : 1945 Sex: F Age: Race: White Pt. Location: [facility] Patient Status: O Ordered Date: 04/20/2022 10:50:00 AM Completed Date: 04/20/2022 11:42 AM Requesting Provider: MICHAEL HAHN Attending Provider: ARIADNA NOLAN Report Copy To: Signs & Symptoms: M79.641 Pain in right hand I10 History: [place] Comments: Evaluate Exam: HAND RIGHT 3 S ======== HAND RIGHT 3 S 04/20/2022 11:42 AM CLINICAL INDICATIONS: [...] report. Electronically signed: Chelita Lazcano. Transcribed by: [email or web address], User Resident: NIRMALA MONGE Electronically Signed by: CHELITA LAZCANO @ 04/20/2022 01:43 PM I personally read this/these film(s) with this resident Normal [facility] Comment on above: Order Comment: Evalu ate RHEUMATOID FACTOR SERUMon RA <20 Normal 0-20 [facility] Comment on above: Performed By: #### 6 1405, 78208 #### [facility] [address] SEDIMENTATION RATEon 022 SED RATE 38 mm/hr High 0-20 [facility] Comment on above: Performed By: #### 5 6506, 32943 ####[facility] TIBC- INCLUDES IRONon 2021 FE SATURATION 30 % Normal 20-50 [facility] Comment on above: Performed By: #### 3 5515, 55943, 48172 #### [facility] [address] [place] [address], [facility] Iron [Mass/Vol] 115 ug/dL Normal 50-212 [facility] Comment on above: Performed By: #### 3 5515, 14787, 08943 #### [facility] [address] [place] [address], [facility] TIBC 378 mcg/dL Normal 250-450 [facility] Comment on above: Performed By: #### 3 5515, 53172, 11364 #### [facility] [address] [place] [address], [facility] UIBC 263 mcg/dL Normal 155-355 [facility] Comment on above: Performed By: #### 3 5515, 09444, 77549 #### [facility] [address] [place] [id number], [facility] CALCIUMon 04-09-2022 Calcium [Mass/Vol] 9.6 mg/dL Normal 8.5-10.1 [facility] Comment on above: Performed By: #### VALERIO MADRIGAL #### [facility] [address] [place] [address] Dr. Dang Grimm CREATININEon 04-09-2022 Creatinine [Mass/Vol] 1.07 mg/dL Critically high 0.55-1.02 [facility] Comment on above: Performed By: #### VALERIO MADRIGAL #### [facility] [address] [place] [address] Dr. Dang Grimm EGFR-AF IRAQI >60 Normal >=60 [facility] Comment on above: Performed By: #### VALERIO MADRIGAL #### [facility] [address] [place] [address] Dr. Dang Grimm EGFR-NON AF IRAQI 50 mL/min/1.73m2 Critically low >=60 [facility] Comment on above: Performed By: #### VALERIO MADRIGAL #### [facility] [address] [place] [address] Dr. Dang Grimm Vital Signs Date Time Vital Sign Value Performing Clinician Facility 03-19-2025 13:32-0400 Body height 154.94 cm Viky Stanford MD Work Phone: [facility] 03-19-2025 13:32-0400 Body mass index (BMI) [Ratio] 25.4 kg/m2 Viky Stanford MD Work Phone: [facility] 03-19-2025 13:32-040 Body weight 60.95 kg Viky Stanford MD Work Phone: [facility] 03-19-2025 13:32-0400 Diastolic blood pressure 76 mm[Hg] Viky Stanford MD Work Phone: [facility] 03-19-2025 13:32-0400 Heart rate 89 /min Viky Stanford MD Work Phone: [facility] 03-19-2025 13:32-0400 Systolic blood pressure 119 mm[Hg] Viky Stanford MD Work Phone: [facility] 11-30-2024 14:19-0400 Body height 154.94 cm [facility] 11-30-2024 14:19-0400 Body mass index (BMI) [Ratio] 25.4 kg/m2 [facility] 11-30-2024 14:19-0400 Body weight 61.23 kg [facility] 11-30-2024 14:19-0400 Diastolic blood pressure 64 mm[Hg] [facility] 11-30-2024 14:19-0400 Heart rate 78 /min [facility] 11-30-2024 14:19-0400 Systolic blood pressure 108 mm[Hg] [facility] 10-16-2024 13:33-0500 Body height 154.94 cm [facility] 10-16-2024 13:33-0500 Body mass index (BMI) [Ratio] 23.6 kg/m2 [facility] 10-16-2024 13:33-0500 Body weight 56.7 kg [facility] 09-14-2024 10:49-0500 Body height 154.94 cm [facility] 09-14-2024 10:49-0500 Body mass index (BMI) [Ratio] 23.6 kg/m2 [facility] 09-14-2024 10:49-0500 Body weight 56.7 kg [facility] 08-03-2024 09:59-0500 Body height 154.94 cm [facility] 08-03-2024 09:59-0500 Body mass index (BMI) [Ratio] 23.6 kg/m2 [facility] 08-03-2024 09:59-0500 Body weight 56.69 kg [facility] 08-03-2024 09:59-0500 Diastolic blood pressure 68 mm[Hg] [facility] 08-03-2024 09:59-0500 Heart rate 79 /min [facility] 08-03-2024 09:59-0500 Systolic blood pressure 118 mm[Hg] [facility] 06-02-2024 14:33-0400 Body height 154.9 cm [facility] [employer] 06-02-2024 14:33-0400 Body mass index (BMI) [Ratio] 24 kg/m2 [facility] [email or web address] 06-02-2024 14:33-0400 Body weight 57.61 kg [facility] Schedule [employer] 06-02-2024 14:33-0400 Diastolic blood pressure 63 mm[Hg] [facility] [employer] [facility] [employer] 06-02-2024 14:33-0400 Heart rate 96 /min [facility] [employer] 06-02-2024 14:33-0400 Respiratory rate 16 /min [facility] [employer] [facility] [employer] 06-02-2024 14:33-0400 SaO2% (BldA) [Mass fraction] 97 % [facility] [employer] [facility] [employer] 06-02-2024 14:33-0400 Systolic blood pressure 132 mm[Hg] [facility] [employer] [facility] [employer] 03-20-2024 09:15-0400 Diastolic blood pressure 62 mm[Hg] MD Viky Stanford Work Phone: [facility] 03-20-2024 09:15-0400 Heart rate 72 /min MD Viky Stanford Work Phone: [facility] 03-20-2024 09:15-0400 Respiratory rate 20 /min MD Viky Stanford Work Phone: [facility] 03-20-2024 09:15-0400 SaO2% (BldA) [Mass fraction] 99 % MD Viky Stanford Work Phone: [facility] 03-20-2024 09:15-0400 Systolic blood pressure 115 mm[Hg] MD Viky Stanford Work Phone: [facility] 03-20-2024 07:18-0400 Body height 156.84 cm MD Viky Stanford Work Phone: [facility] 03-20-2024 07:18-0400 Body weight 55.33 kg MD Viky Stanford Work Phone: [facility] 03-16-2024 09:04-0400 Body height 156.84 cm MD Viky Stanford Work Phone: [facility] 03-16-2024 09:04-0400 Body mass index (BMI) [Ratio] 22.8 kg/m2 MD Viky Stanford Work Phone: [facility] 03-16-2024 09:04-0400 Body weight 56.24 kg MD Viky Stanford Work Phone: [facility] 03-16-2024 09:04-0400 Diastolic blood pressure 72 mm[Hg] MD Viky Stanford Work Phone: [facility] 03-16-2024 09:04-0400 Heart rate 81 /min MD Viky Stanford Work Phone: [facility] 03-16-2024 09:04-0400 Systolic blood pressure 122 mm[Hg] MD Viky Stanford Work Phone: [facility] 10-02-2023 09:55-0500 Diastolic blood pressure 67 mm[Hg] MD Viky Stanford Work Phone: [facility] 10-02-2023 09:55-0500 Heart rate 80 /min MD Viky Stanford Work Phone: [facility] 10-02-2023 09:55-0500 Respiratory rate 16 /min MD Viky Stanford Work Phone: [facility] 10-02-2023 09:55-0500 SaO2% (BldA) [Mass fraction] 99 % MD Viky Stanford Work Phone: [facility] 10-02-2023 09:55-0500 Systolic blood pressure 108 mm[Hg] MD Viky Stanford Work Phone: [facility] 10-02-2023 07:07-0500 Body height 160.02 cm MD Viky Stanford Work Phone: [facility] 10-02-2023 07:07-0500 Body weight 56.69 kg MD Viky Stanford Work Phone: [facility] 08-30-2023 10:30-0500 Body height 157.48 cm Viky Stanford Other [facility] 08-30-2023 10:30-0500 Body mass index (BMI) [Ratio] 21.73 kg/m2 Viky Stanford Other [facility] [employer] Other 08-30-2023 10:30-0500 Body weight 53.89 kg Viky Stanford Other [facility] [employer] Other 08-30-2023 10:30-0500 Body weight 53.88 kg MD Viky Stanford Work Phone: [facility] 08-30-2023 10:30-0500 Diastolic blood pressure 74 mm[Hg] Viky Stanford Other [facility] 08-30-2023 10:30-0500 Systolic blood pressure 122 mm[Hg] Viky Stanford Other [facility] 08-21-2023 13:45-0500 Body height 157.48 cm Imad Asaad Other [facility] 08-21-2023 13:45-0500 Body mass index (BMI) [Ratio] 21.58 kg/m2 Imad Asaad Other [facility] [employer] Other 08-21-2023 13:45-0500 Body weight 53.52 kg Imad Asaad Other [facility] 07-15-2023 11:30-0500 Body height 157.48 cm Viky Stanford Other [facility] 07-15-2023 11:30-0500 Body mass index (BMI) [Ratio] 21.73 kg/m2 Viky Stanford Other [facility] [employer] Other 07-15-2023 11:30-0500 Body weight 53.89 kg Viky Stanford Other [facility] [employer] Other 07-15-2023 11:30-0500 Body weight 53.88 kg MD Viky Stanford Work Phone: [facility] 07-15-2023 11:30-0500 Diastolic blood pressure 78 mm[Hg] Viky Stanford Other [facility] 07-15-2023 11:30-0500 Systolic blood pressure 148 mm[Hg] Viky Stanford Other [facility] 07-06-2023 09:20-0500 Body height 157.48 cm MD Viky Stanford Work Phone: [facility] 07-06-2023 09:20-0500 Body weight 55.51 kg MD Viky Stanford Work Phone: [facility] Encounters Encounter Date Encounter Type Care Provider Facility Start: 03-19-2025 End: 03-19-2025 ambulatory Viky Stanford MD Work Phone: [facility] Work Phone: Start: 03-19-2025 End: 03-19-2025 Patient encounter procedure Viky Stanford MD [facility] Work Phone: Start: 03-15-2025 End: 03-15-2025 Telephone encounter Razia AGUILAR Work Phone: [facility] Comment on above: injection Start: 03-11-2025 ambulatory [facility] Start: 12-29-2024 End: 12-29-2024 Bamboo flowsheet Razia AGUILAR Work Phone: [facility] Start: 12-29-2024 End: 12-29-2024 Bamboo flowsheet Razia AGUILAR Work Phone: [facility] Start: 12-29-2024 End: 12-29-2024 Office outpatient visit 25 minutes Razia AGUILAR Work Phone: [facility] Comment on above: 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); Pain of right thumb; Acute pain of left knee; Chondromalacia, patella, left Start: 12-29-2024 End: 12-29-2024 ambulatory RAZIA WILSON Not Available Start: 12-25-2024 End: 12-25-2024 Bamboo flowsheet Razia Wilson PA Work Phone: [facility] Start: 12-25-2024 End: 12-25-2024 Bamboo flowsheet Raiza Wilson PA Work Phone: [facility] Start: 12-25-2024 End: 12-25-2024 Office outpatient visit 15 minutes Razia AGUILAR Work Phone: [facility] Comment on above: Arthritis of carpome tacarpal (CMC) joint of left thumb (Primary Dx); Pain of left thumb; Left hand pain Start: 12-25-2024 End: 12-25-2024 ambulatory RAZIA WILSON Not Available Start: 11-30-2024 End: 11-30-2024 ambulatory [facility] Work Phone: Start: 11-30-2024 End: 11-30-2024 Patient encounter procedure [facility] Work Phone: Start: 10-16-2024 End: 10-16-2024 ambulatory [facility] Work Phone: Start: 10-16-2024 End: 10-16-2024 Patient encounter procedure [facility] Work Phone: Start: 10-01-2024 Non-patient / Non-visit [facility] Work Phone: Start: 09-14-2024 End: 09-14-2024 Patient encounter procedure [facility] Work Phone: Start: 08-03-2024 Non-patient / Non-visit [facility] Work Phone: Start: 08-03-2024 End: 08-03-2024 Patient encounter procedure [facility] Work Phone: Start: 08-03-2024 End: 08-03-2024 ambulatory Andri[facility] Bhaktiytautas [facility] Start: 07-27-2024 End: 07-27-2024 ambulatory Andkingaus Bhaktiytcallie Cassidyitis Facility:[facility] Start: 07-06-2024 End: 07-06-2024 ambulatory Andrius Vladislav Ledbettereditis Facility:[facility] Start: 06-26-2024 End: 06-28-2024 ambulatory ECHO Adeola [facility] Start: 06-26-2024 End: 06-28-2024 Subsequent hospital visit by physician Echo Marieenship Work Phone: [facility] Scan Comment on above: Sacroiliitis (HCC) Start: 06-09-2024 End: 06-09-2024 ambulatory ECHO [facility] Start: 06-02-2024 End: 06-06-2024 ambulatory ECHO Mir [facility] Start: 06-02-2024 Encounter for other preprocedural examination [facility] Start: 06-02-2024 End: 06-06-2024 Patient encounter status Stbhaktiz Schedule [facility] Start: 06-02-2024 End: 06-06-2024 Subsequent hospital visit by physician Hoa Dias Pat Schedule HOA Dias Pre-Admit Testing Comment on above: Pre-op testing (Prim edil Dx) Start: 04-29-2024 End: 04-29-2024 Bamboo flowsheet Romelia B Apling PATTERN LEASE INSPECTOR Work Phone: [facility] Start: 04-29-2024 End: 04-29-2024 Bamboo flowsheet Romelia Keith Apling PATTERN LEASE INSPECTOR Work Phone: [facility] Start: 04-29-2024 End: 04-29-2024 Office outpatient visit 10 minutes Romelia Keith Apling PATTERN LEASE INSPECTOR Work Phone: [facility] Comment on above: Left knee pain, unsp ecified chronicity (Primary Dx); Arthritis of left knee Start: 04-29-2024 End: 04-29-2024 ambulatory ROMELIA B APLING Not Available Start: 04-15-2024 End: 04-15-2024 Bamboo flowsheet Romelia Keith Apling PATTERN LEASE INSPECTOR Work Phone: [facility] Start: 04-15-2024 End: 04-15-2024 Bamboo flowsheet Romelia Keith Apling PATTERN LEASE INSPECTOR Work Phone: [facility] Start: 04-15-2024 End: 04-15-2024 Office outpatient visit 25 minutes Romelia Claudioing PATTERN LEASE INSPECTOR Work Phone: [facility] Comment on above: Left knee pain, unsp ecified chronicity (Primary Dx); Arthritis of left knee Start: 04-15-2024 End: 04-15-2024 ambulatory ROMELIA B APLING Not Available Start: 03-20-2024 Non-patient / Non-visit MD Marlys Stanford Work Phone: [facility] Work Phone: Start: 03-20-2024 End: 03-20-2024 Admission to same day surgery center MD Viky Stanford Work Phone: [facility] Work Phone: Start: 03-20-2024 End: 03-20-2024 ambulatory MD Viky Stanford Work Phone: [facility] Work Phone: Start: 03-18-2024 End: 03-18-2024 ambulatory ROMELIA Keith APLING Not Available Start: 03-17-2024 Preoperative state MD Viky bliss Work Phone: [facility] Start: 03-16-2024 End: 03-16-2024 ambulatory ROMELIA Keith APLING Not Available Start: 03-16-2024 End: 03-16-2024 Patient encounter procedure MD Viky Stanford Work Phone: [facility] Work Phone: Start: 10-14-2023 End: 10-14-2023 ambulatory Ara Maier MD Facility:[facility] Start: 10-04-2023 End: 10-04-2023 ambulatory Imad Asaad Other [employer] Other Start: 10-04-2023 Telephone encounter Imad Asaad [facility] Start: 10-02-2023 Non-patient / Non-visit MD Marlys Stanford Work Phone: [facility] G[facility] Work Phone: Start: 10-02-2023 End: 10-02-2023 Admission to same day surgery center MD Viky Stanford Work Phone: [facility] Work Phone: Start: 10-02-2023 End: 10-02-2023 ambulatory MD Viky Stanford Work Phone: [facility] Work Phone: Start: 09-23-2023 End: 09-23-2023 ambulatory Viky Stanford Other [employer] Other Start: 09-23-2023 Telephone encounter Viky REYES [facility] Start: 09-03-2023 End: 09-03-2023 ambulatory Viky Stanford Other [facility] Other Start: 09-03-2023 Telephone encounter Viky Stanford [facility] [employer] [facility] Start: 08-30-2023 End: 08-30-2023 ambulatory Viky Stanford Other [facility] Other Start: 08-30-2023 Office outpatient vi sit 15 minutes Viky Stanford [facility] Start: 08-30-2023 End: 08-30-2023 Patient encounter procedure MD Viky Stanford Work Phone: [facility]- Start: 08-23-2023 End: 08-23-2023 ambulatory Viky Stanford Other [facility] Other Start: 08-23-2023 Telephone encounter Viky Stanford [facility] Start: 08-21-2023 End: 08-21-2023 ambulatory Imad Asaad Other [facility] Other Start: 08-21-2023 Office outpatient ne w 45 minutes Imad Asaad [facility] Start: 08-21-2023 End: 08-21-2023 Patient encounter procedure MD Viky Stanford Work Phone: [facility] G[facility] Work Phone: Start: 07-15-2023 End: 07-15-2023 ambulatory Viky Stanford Other [employer] Other Start: 07-15-2023 Office outpatient vi sit 15 minutes Viky Stanford [facility] Start: 07-15-2023 Telephone encounter Viky Stanford [facility] Start: 07-15-2023 End: 07-15-2023 Patient encounter procedure MD Viky Stanford Work Phone: [facility] Work Phone: Start: 07-06-2023 End: 07-06-2023 Patient encounter procedure MD Viky Stanford Work Phone: [facility] [facility] [employer] Ur[facility] Luis Alfredo Work Phone: Start: [...] preprocedural laboratory examination DR MASSIMO MATTHEWS . [facility] Start: 07-24-2022 End: 07-24-[address] MASSIMO MATTHEWS . Facility:[facility] Start: 07-20-2022 End: 07-21-[address] MASSIMO MATTHEWS . Facility:[facility] Start: 07-20-2022 End: 07-21-2022 Encounter for preprocedural laboratory examination DR MASSIMO MATTHEWS . Facility: Start: 07-11-2022 End: 07-12-[address] MASSIMO MATTHEWS . Facility: Start: 06-19-2022 End: 06-19-[address] MASSIMO [...] Facility: Start: 10-25-2020 Pre-procedure evalua tion check Viky Stanford Other [facility] Other Procedures Date Procedure Procedure Detail Performing Clinician Start: 12-29-2024 Arthrocentesis aspir&/inj small jt/bursa w/o us Razia Ramey Steve AGUILAR Work Phone: Start: 12-29-2024 Arthrocentesis aspir&/inj major jt/bursa w/o us Razia Ramey Steve PA Work Phone: Start: 12-29-2024 Radiologic examination knee 1/2 views Razia Ramey Steve AGUILAR Work Phone: Start: 12-29-2024 Radex fingr minimum 2 views Razia Jin paul PA Work Phone: Start: 12-25-2024 Arthrocentesis aspir&/inj small jt/bursa w/o us Razia Ramey Steve PA Work Phone: Start: 12-25-2024 Radex hand minimum 3 views Razia Jiny er PA Work Phone: Start: 06-26-2024 Ct pelvis w/o contrast material Echo Ham DO Work Phone: Start: 06-02-2024 Blood count complete auto&auto difrntl wbc Ling Rojas MD Work Phone: Start: 06-02-2024 Ecg routine ecg w/least 12 lds w/i&r Ling Rojas MD Work Phone: Start: 04-15-2024 Arthrocentesis aspir&/inj major jt/bursa w/o us Romelia Sagar Aplondina PATTERN LEASE INSPECTOR Work Phone: Start: 04-15-2024 Radiologic examination knee 3 views Danae a B Apling PATTERN LEASE INSPECTOR Work Phone: Start: 03-20-2024 Colonoscopy MD Viky Stanford Work Phone: Start: 10-02-2023 Esophagogastroduodenoscopy MD Viky fox Work Phone: Start: 07-10-2017 Screening mammography Viky Stanford Other Start: 07-19-2016 General examination of patient Vikyverna padilla Other Plan of Treatment Date Care Activity Detail Author Start: 04-23-2032 DTaP/Tdap/Td vaccine (2 - Td or Tdap) DTaP/Tdap/Td vaccine (2 - Td or Tdap) [facility] Start: 04-12-2025 Influenza vaccination Influenza Vaccine (#1) [facility] Start: 12-29-2024 End: 12-29-2024 Patient encounter procedure 12/29/2024 11:15 AM EDT Office Visit [facility] [address] [place] [address] Razia Wilson PA [address] [facility] [address] [place] [address] Arthritis of carpometacarpal (CMC) joint of right thumb (Primary Dx); Pain of right thumb [facility] Comment on above: Arthritis of carpometacarpal (CMC) joint of right thumb (Primary Dx); Pain of right thumb Start: 12-25-2024 End: 12-25-2024 Patient encounter procedure 12/25/2024 8:45 AM EDT Office Visit [facility] [address] [place] [address] Razia Wilson PA [address] [facility] [address] [place] [address] Arthritis of carpometacarpal (CMC) joint of left thumb (Primary Dx); Pain of left thumb [facility] Comment on above: Arthritis of carpometacarpal (CMC) joint of left thumb (Primary Dx); Pain of left thumb Start: 06-09-2024 End: 06-09-2024 Admission to same day surgery center 06/09/2024 7:30 AM EDT - 06/09/2024 9:30 AM EDT Surgery [facility] [place] [address] [place] [address] Echo Ham, DO [address] [place] [address] RIGHT MINIMALLY INVASIVE SURGERY SACROILIAC JOINT FUSION POSTERIOR WITH SI BONE [facility] OR Comment on above: RIGHT MINIMALLY INVASIVE SURGERY SACROIL IAC JOINT FUSION POSTERIOR WITH SI BONE Start: 06-09-2024 End: 06-09-2024 Anesthesia consultation 06/09/2024 7:30 AM EDT Anesthesia Event [facility] [place] [address] [place] [address] Ricco Foote MD [address] [facility] [address] [place] [address] [facility] [place] Start: 06-09-2024 End: 06-09-2024 Arthrodesis sacroiliac joint percutaneous SACROILIAC JOINT FUSION POSTERIOR Chronic right SI joint pain 06/09/2024 7:30 AM EDT [facility] Start: 06-09-2024 Subsequent hospital visit by physician 06/09/2024 7:30 AM EDT Hospital Encounter [facility] [place] [facility] [address] [place] [address] Echo Ham, DO [address] [place] [address] [facility] [place] Start: 05-27-2024 Annual Wellness Visit (Medicare) Annual Wellness Visit (Medicare) [facility] Start: 04-29-2024 End: 04-29-2024 Patient encounter procedure [facility] Comment on above: Left knee pain, unspecified chronicity ( Primary Dx); Arthritis of left knee Start: 04-15-2024 End: 04-15-2024 Patient encounter procedure 04/15/2024 11:15 AM EDT Office Visit [facility] [address] [place] [id number] Romelia Mcclain NP [address] [place] [address] Left knee pain, unspecified chronicity (Primary Dx) [facility] Comment on above: Left knee pain, unspecified chronicity ( Primary Dx) Start: 04-12-2024 COVID-19 Vaccine ( season) COVID-19 Vaccine ( season) [facility] Start: 04-12-2024 Influenza vaccination Influenza Vaccine (#1) [facility] Start: 03-20-2024 [facility] Start: 10-02-2023 [facility] Start: 2001 Screening for osteoporosis DEXA (modify frequency per FRAX score) [facility] Start: 1964 Hepatitis C screening Hepatitis C screen [facility] Start: 1958 Depression Screen Depression Screen [facility] Patient Education Hemorrhoids (D C) Know your Meds [facility] Work Phone: Immunizations Immunization Date Immunization Notes Care Provider [facility] 04-30-2024 influenza virus vaccine, unspecified formulation Razia Wilson PA Work Phone: [facility] 04-16-2023 influenza virus vaccine, unspecified formulation Romelia Mcclain PATTERN LEASE INSPECTOR Work Phone: [facility] 05-17-2022 zoster vaccine, live Viky Stanford Other [facility] 04-23-2022 influenza virus vaccine, split virus (incl. purified surface antigen) Viky Stanford Other [employer] [employer] Other 04-23-2022 influenza virus vaccine, unspecified formulation MD Viky Stanford Work Phone: [facility] 04-23-2022 pneumococcal polysaccharide vaccine, 23 valent Viky Stanford Other [facility] 04-23-2022 tetanus toxoid, adsorbed Viky Stanford Other [facility] 05-25-2021 influenza virus vaccine, split virus (incl. purified surface antigen) Viky Stanford Other [facility] [employer] Other 05-25-2021 influenza virus vaccine, unspecified formulation MD Viky Stanford Work Phone: [facility] 10-18-2020 COVID-19 Vaccine Moderna - Documentation Purposes Only Viky Stanford Other [facility] 09-19-2020 COVID-19 Vaccine Moderna - Documentation Purposes Only Viky Stanford Other [facility] 04-16-2020 influenza virus vaccine, split virus (incl. purified surface antigen) Viky Stanford Other [facility] [employer] Other 04-16-2020 influenza virus vaccine, unspecified formulation MD Viky Stanford Work Phone: [facility] 05-12-2019 influenza virus vaccine, split virus (incl. purified surface antigen) Viky Stanford Other [facility] [employer] Other 05-12-2019 influenza virus vaccine, unspecified formulation MD Viky Stanford Work Phone: [facility] 04-18-2018 influenza virus vaccine, split virus (incl. purified surface antigen) Viky Stanford Other [facility] [employer] Other 04-18-2018 influenza virus vaccine, unspecified formulation MD Viky Stanford Work Phone: [facility] 07-10-2017 pneumococcal conjuga te vaccine, 13 valent Viky Stanford Other [facility] 04-18-2017 influenza virus vaccine, split virus (incl. purified surface antigen) Viky Stanford Other [employer] [employer] Other 04-18-2017 influenza virus vaccine, unspecified formulation MD Viky Stanford Work Phone: [facility] 05-09-2016 influenza virus vaccine, split virus (incl. purified surface antigen) Viky Stanford Other [facility] Other 05-09-2016 influenza virus vaccine, unspecified formulation MD Viky Stanford Work Phone: [facility] 05-27-2013 tetanus and diphther ia toxoids, adsorbed, preservative free, for adult use (5 Lf of tetanus toxoid and 2 Lf of diphtheria toxoid) Viky Stanford Other [facility] 12-24-2011 pneumococcal polysaccharide vaccine, 23 valent Viky Stanford Other [facility] Payers Date Payer Category Payer Self-pay 2022 Private Health Insurance [employer] Pr mber Subscriber Plan / Payer (Effective 2022-Present) Name: Arianne Ko Relation to Subscriber: Self Name: Arianne Ko Payer ID: Not on file Type: Not on file Address: [place] [id number] 2022 Unknown 2011 Medicare [id number] 1959 Medicare [id number] 1959 Unknown [id number] 1946 Unknown [id number] 2.840.1.867831.3.579.2 .647 1946 Unknown [id number] .16.840.1.303024.3.579.2 .647 1946 Unknown [id number] 2.16.840.1.934593.3.579.2 .593 1946 Unknown [id number] 2.16.840.1.197433.3.579.2 .593 1946 Unknown [id number] 2.16.840.1.676450.3.579.2 .593 1946 Unknown [id number] 2.16.840.1.321663.3.579.2 .593 1946 Unknown [id number] 2.16.840.1.465739.3.579.2 .593 1946 Unknown [id number] 2.16.840.1.998949.3.579.2 .593 1946 Unknown [id number] 2.16.840.1.640023.3.579.2 .593 1946 Unknown [id number] 2.16.840.1.621438.3.579.2 .593 1946 Unknown [id number] 2.16.840.1.247403.3.579.2 .593 1946 Unknown [id number] 2.16.840.1.719325.3.579.2 .593 1946 Unknown [id number] 2.16.840.1.528720.3.579.2 .593 1946 Unknown [id number] 2.16.840.1.713822.3.579.2 .593 1946 Unknown [id number] 2.16.840.1.225040.3.579.2 .593 1946 Unknown [id number] 2.16.840.1.323249.3.579.2 .593 1946 Unknown [id number] 2.16.840.1.902528.3.579.2 .175 1946 Unknown [id number] 2.16.840.1.557386.3.579.2 .175 1946 Unknown [id number] 2.16.840.1.103582.3.579.2 .176 1946 Unknown [id number] 2.16.840.1.791372.3.579.2 .196 1946 Unknown [id number] 2.16.840.1.198650.3.579.2 .196 1946 Unknown [id number] 2.16.840.1.198591.3.579.2 .196 1946 Unknown [id number] 2.16.840.1.717210.3.579.2 .196 1946 Unknown [id number] 2.16.840.1.363172.3.579.2 .1259 1946 Unknown [id number] 2.16.840.1.676851.3.579.2 .1259 1946 Unknown [id number] 2.16.840.1.273590.3.579.2 .1259 1946 Unknown [id number] 2.16.840.1.088970.3.579.2 .1259 1946 Unknown [id number] 2.16.840.1.300472.3.579.2 .1259 1946 Unknown [id number] 2.16.840.1.632161.3.579.2 .1259 1946 Unknown [id number] 2.16.840.1.498862.3.579.2 .1259 1946 Unknown [id number] 2.16.840.1.056855.3.579.2 .1259 1946 Unknown [id number] 2.16.840.1.897492.3.579.2 .125 1946 Unknown [id number] 2.16.840.1.596155.3.579.2 .1259 Medicare Medicare Outpatient [id number] 9A [id number] Unknown [id number] 2.16.840.1.895963.3.579.2 .531 Social History Date Type Detail Facility Unknown if ever smoked [facility] Other Start: 06-02-2024 End: 12-29-2024 Sex Assigned At [employer] Other Start: 10-02-2023 End: 03-20-2024 Tobacco smoking status NHIS Never smoked tobacco (finding) [facility] Start: 1945 Sex Assigned At Female F [facility] Start: 12-31-2022 End: 06-02-2024 Tobacco use and exposure Smokeless tobacco non-user [facility] Start: 06-02-2024 End: 12-29-2024 Alcoholic beverage intake Current drinker of alcohol (finding) [facility] Start: 06-02-2024 End: 12-29-2024 History of Social function [facility] Physical abuse Denies [employer] [facility] Start: 06-02-2024 Alcohol Comment occasioally only [email or web address] Start: 1945 Sex assigned at Not on file [facility] Start: 06-07-2024 Gender identity Identifies as female gender (finding) [email or web address] Start: 12-31-2022 Alcohol Comment 5-6x/year [facility] Start: 10-16-2024 End: 11-30-2024 Sex Female (finding) [facility] Medical Equipment Procedure Code Equipment Code Equipment Origin al Text Equipment Identifier Dates Joint Sacroiliac 11.5x50 Mm [employer] - [id number] Start: 06-09-2024 Joint Sacroiliac 11.5x35 Mm [employer] - [id number] Start: 06-09-2024 Joint Sacroiliac 11.5x35 Mm [employer] - [id number] Start: 06-09-2024 Goals Date Patient Goal Desired Activity /State Clinical Notes 11-30-2021 to 03-15-2025 Telephone Encounter - COREY Zimmer - 03/15/2025 2:40 PM EDTTelephone Encounter - COREY Zimmer - 03/15/2025 2:40 PM EDTTelephone Encounter - Tresa Gallego - 03/15/2025 2:14 PM EDT Note Date & Type Note Facility 03-15-2025 Telephone encounter Note Ref[facility] [facility] 03-15-2025 Miscellaneous Notes Referral placed and sent. Patient called in stating Ronald told her about a chicken injection for her LT knee. She is requesting a referral be sent to [facility] for this. Please advise [phone]. documented in this encounter [facility] 03-15-2025 Telephone encounter Note Patient called in stating Ronald told her about a chicken injection for her LT knee. She is requesting a referral be sent to [facility] for this. Please advise [phone]. [facility] 03-11-2025 Note Subjective Chief complaint: Chief Complaint Patient presents with Left Thumb - Pain 03/11/25 Arianne Ko is a 79 y.o. female presenting for evaluation of chronic left thumb pain that has been present for multiple years. Patient states that she [...] thumb. Denies any prior surgery to the left hand. Patient states she has similar symptoms in the right thumb but they are less severe. Denies numbness, tingling, and weakness. ROS: Denies fevers, chills, and other constitutional symptoms. Denies shortness of breath. History Surgical History[1] Medical History[2] Objective General: Body mass index is 22.5 kg/m???. There were no vitals filed for this [...] finger: normal A1 erica and AROM Strength: advanced analytics associate 5/5, thumb 5/5, interossei 5/5 Sensation: intact [...] intervention in the form of left thumb Sexton's arthroplasty and any other indicated procedures. Consent was obtained today in clinic. All questions and concerns were addressed. Patient will follow-up for surgical intervention. Wolf Castorena MD Orthopedic Surgery Resident, PGY-4 Pager: [phone] 03/11/25 10:10 AM This note was created [...] History reviewed. No pertinent past medical history. [facility] 12-29-2024 History of Present illness Narrative Associated Order(s): L Inj/Asp: L knee; S Inj/Asp: R thumb CMC Post-Procedure Diagnose(s): Chondromalacia, patella, left; Arthritis of carpometacarpal (CMC) joint of right thumb Images from the original note were not included. Orthopedic Office note: NAME: Arianne Ko : 1945 EST PT RECHECK RT THUMB PT WAS GIVEN CMC INJ LT THUMB 12/25/24 XRAY RT THUMB TODAY EPIC 12/29/24 CORTISONE INJ 12/24/22 PAIN AT BASE OF RT THUMB. DENIES RADIATION. +TRAMADOL (HX BACK SX), TYL PRN. +VOLTAREN. DENIES N/T, SWELLING. GOOD ROM. DECREASED STRENGTH. DIFFICULTY LIFTING AND TURNING. RT HANDED. ALSO NOTES LT KNEE PAIN.STARTED THIS WEEK. XRAY TODAY EPIC 12/29/24 DENIES INJURY. + PAIN ANTERIOR KNEE WITH STEPS. INCREASED WITH ACTIVITY, IMPROVED WITH REST. NO FEVER. HAS HAD SIMILAR SYMPTOMS IN THE PAST AND IMPROVED WITH IA INJECTION. DENIES N/T, DENIES RADIATION OF PAIN. Knee Musculoskeletal Exam Gait Gait is normal. Inspection Leg length disparity: no discrepancy Left Erythema: none Effusion: mild Edema: none Ecchymosis: none Deformity: none Alignment: normal Palpation Left Left knee palpation is unremarkable. Increased warmth: none Masses: none Tenderness: present Patella: moderate Range of Motion Left Left knee range of motion is normal and full. Strength Left Left knee strength is normal. Extension: 5/5. Instability Left Instability signs: none - stable Varus stress grade: normal Valgus stress grade: normal Anterior drawer: normal Medial Jil test: negative Lateral Jil test: negative Neurovascular Left Left knee neurovascular exam is normal. Pulses - PT: normal Posterior tibial: 2+ Capillary refill: warm and well-perfused Special Signs Left Straight leg raise: normal Patellar apprehension: moderate General Constitutional: appears stated age Labored breathing: no Psychiatric: normal mood and affect Neurological: alert and oriented x3 Skin: intact Lymphadenopathy: none Hand/Wrist Musculoskeletal Exam Inspection Right Right hand/wrist inspection is normal. Erythema: none Ecchymosis: none Edema: none Deformity: mild Deformity comment: arthritic changes. Palpation Right Right hand palpation is normal. Thumb tenderness to palpation: carpometacarpal joint Dorsal hand - 1st metacarpal tenderness to palpation: CMC Palpation additional comments: DENIES PAIN TO PALPATION OF HAND/ WRIST JOINT Range of Motion Right Hand Right hand range of motion is normal. Range of motion additional comments: ABLE TO MAKE FULL FIST Strength Right Hand Right hand strength is normal. Strength additional comments: 5/5 EQUAL GROUNDMAN STRENGTH Neurovascular Right Right neurovascular exam is normal. Radial pulse: normal and 2+ Capillary refill: <3 sec Special Tests Right CMC grind test: positive General Constitutional: appears stated age Labored breathing: no Psychiatric: normal mood and affect Neurological: alert and oriented x3 Skin: intact Lymphadenopathy: none Orders Placed This Encounter Procedures L Inj/Asp This order was created via procedure documentation S Inj/Asp This order was created via procedure documentation XR fingers 2+ views right Reason for exam:: pain XR knee 1 or 2 views left Reason for exam:: pain L Inj/Asp: L knee on 12/29/2024 11:50 AM Indications: pain Details: 22 G needle, anterolateral approach Medications: 40 mg methylPREDNISolone acetate 40 MG/ML; 1 mL bupivacaine PF 0.5 % Outcome: tolerated well, no immediate complications UTILIZING ASEPTIC TECHNIQUE PT GIVEN INJECTION IN LEFT KNEE, NEUROVASC INTACT S/P INJ, TOLERATED WELL Procedure, treatment alternatives, risks and benefits explained, specific risks discussed. Consent was given by the patient. Patient was prepped and draped in the usual sterile fashion. S Inj/Asp: R thumb CMC on 12/29/2024 11:50 AM Indications: pain and joint swelling Details: 21 G needle, dorsal approach Medications: 20 mg methylPREDNISolone acetate 40 MG/ML; 0.5 mL bupivacaine 0.5 % Outcome: tolerated well, no immediate complications Consent was given by the patient. Patient was prepped and draped in the usual sterile fashion. Results - Imaging: - X-ray (performed today): shows advanced degenerative changes at the CMC joint of the right thumb ICD-10-CM 1. Arthritis of carpometacarpal (CMC) joint of right thumb M18.11 2. Pain of right thumb M79.644 XR fingers 2+ views right 3. Acute pain of left knee M25.562 XR knee 1 or 2 views left 4. Chondromalacia, patella, left M22.42 Assessment & Plan Right thumb pain, CMC joint. She has a longstanding history of arthritis and injections. The most recent x-ray from 2022 was discussed at the bedside, showing advanced degenerative changes at this joint. She has gotten temporary relief from injections in the past and [place] an [place] trip [place] 1 [place]. She is requesting an injection today, noting relief in her left thumb after a recent injection. Treatment plan: Injection today. Clinical decision making: Surgical intervention will be considered upon her return, and she plans to follow up with a hand specialist who has operated on her family. Left knee pain. Her left knee is also painful today, noted anteriorly with recent activity, mild effusion, no signs or symptoms of infection. Given her [place] activity out west, she is requesting an injection today. Patellofemoral arthritis was reviewed, and treatment with ice, rest, and wraps were discussed. Treatment plan: Injection today. Follow-up: She will call if any additional concerns arise. Questions answered in laymen terms at the bedside. The diagnosis, home exercise plan and any ongoing restrictions/ recommendations reviewed. If unable to be reached in office, I recommend evaluation at nearest Emergency Room if any symptoms worsened or new symptoms develop for requiring urgent evaluation. Visit was preformed using [employer] Co-airline pilot flight instructor speech recognition. documented in this encounter [facility] 12-25-2024 History of Present illness Narrative Associated Order(s): S Inj/Asp: L thumb CMC Post-Procedure Diagnose(s): Arthritis of carpometacarpal (CMC) joint of left thumb Images from the original note were not included. Orthopedic Office note: NAME: Arianne Ko : 1945 EST PT WITH EDEL WITH FLARE UP LT THUMB- S/P LT CMC CORTISONE INJ 03/15/24; GOOD RELIEF ~4MO-NOTES GRADUAL INCREASE WITH PAIN XRAY LT HAND TODAY EPIC 12/25/24 XR at [facility] 04/2022 CMC INJ 03/17/20, 06/19/22, 01/14/23, 09/04/23, 03/15/24, COMPRESSION GLOVE PAIN BASE OF THUMB- DENIES LOCKING- DENIES SWELLING- DIFFICULTY GRIPPING/GRASPING- +WEAKNESS- +DICLOFENAC GEL- PT STATES SHE DOES HAVE SIMILAR SYMPTOMS IN RT THUMB (STATES EDEL DOES NOT USUALLY GIVE BOTH INJ IN 1 DAY) Physical Exam Hand/Wrist Musculoskeletal Exam Inspection Left Left hand/wrist inspection is normal. Erythema: none Ecchymosis: none Edema: none Deformity: none Wrist - prior incision: thumb CMC Wrist - prior incision comment: appears post traumatic Palpation Right Thumb tenderness to palpation: carpometacarpal joint Dorsal hand - 1st metacarpal tenderness to palpation: CMC Left Left hand palpation is normal. Thumb tenderness to palpation: carpometacarpal joint Dorsal hand - 1st metacarpal tenderness to palpation: CMC Palpation additional comments: DENIES PAIN TO PALPATION OF HAND/ WRIST JOINT Range of Motion Left Hand Left hand range of motion is normal. Range of motion additional comments: ABLE TO MAKE FULL FIST Strength Left Hand Left hand strength is normal. Strength additional comments: 5/5 EQUAL GROUNDMAN STRENGTH terminal strength limited by pain CMC joint of thumb. Neurovascular Left Left neurovascular exam is normal. Radial pulse: normal and 2+ Capillary refill: <3 sec General Constitutional: appears stated age Labored breathing: no Neurological: alert and oriented x3 Skin: intact Lymphadenopathy: none Orders Placed This Encounter Procedures S Inj/Asp This order was created via procedure documentation XR hand 3+ views left Views: PA Views: Lateral Views: Oblique Reason for exam:: PAIN S Inj/Asp: L thumb CMC on 12/25/2024 9:05 AM Indications: pain and joint swelling Details: 22 G needle, dorsal approach Medications: 20 mg methylPREDNISolone acetate 40 MG/ML; 0.5 mL bupivacaine 0.5 % Outcome: tolerated well, no immediate complications Procedure, treatment alternatives, risks and benefits explained, specific risks discussed. Consent was given by the patient. Patient was prepped and draped in the usual sterile fashion. Results ICD-10-CM 1. Arthritis of carpometacarpal (CMC) joint of left thumb M18.12 2. Pain of left thumb M79.645 XR hand 3+ views left 3. Left hand pain M79.642 Assessment & Plan Discussed CMC arthritis. Pt leaving for 1 month requesting bilateral injection.. discussed injection history and severity of pain with xray changes... recommend appt with Dr. Rios to discuss CMC arthroplasty given length of symptoms and potential adverse effects of cortisone on her body with diminished returns from injection.. pt will Follow up Saturday for right thumb eval. Questions answered in laymen terms at the bedside. The diagnosis, home exercise plan and any ongoing restrictions/ recommendations reviewed. If unable to be reached in office, I recommend evaluation at nearest Emergency Room if any symptoms worsened or new symptoms develop for requiring urgent evaluation. Visit was preformed using [employer]-airline pilot flight instructor speech recognition. documented in this encounter [facility] 09-14-2024 Evaluation note Diagnosis Onset Date Resolution Collagenous colitis acute Febru 2024 10:47am Frequent stools acute September 14, 2024 10:47am Irritable bowel syndrome with diarrhea acute September 14, 2024 10:47am Collagenous colitis acute October 16, 2024 1:33pm GERD (gastroesophageal reflux disease) acute October 16, 2024 1:33pm [facility] Work Phone: 1(601) 610-398312-23-2024 Evaluation note* Diagnosis Onset Date Resolution Status Admit Date Collagenous colitis acute Decem 2023 9:58am GERD (gastroesophageal reflu x disease) acute August 03, 9:58am Irritable bowel syndrome wit h diarrhea acute August 03 024 9:58am Collagenous colitis acute 2024 10:47am Frequent stools acute September 14, 2024 10:47am Irritable bowel syndrome wit h diarrhea acute September 14 10:47am Collagenous colitis acute October 16, 2024 1:33pm GERD (gastroesophageal reflu x disease) acute October 16, 2024 1:33pm [facility] Work Phone: 1(538) 121-689710-22-2024 Hospital Discharge instructions* Discharge Instructions* Cristopher Escobar RN - 06/02/2024 2:51 PM EDT Preoperative Instructions: Stop eating solid foods at midnight the night prior to your surgery. Stop drinking clear liquids at midnight the night prior to your surgery. Arrive at the surgery center C entrance) on ___[id number] by ____0530- 0600am . Please stop any blood thinning medications [...] medication(s) with a small sip of water: Pantoprazole( and Budesonide) Please shower with provided CHG soap the day before and the morning of of surgery. Reminders: -If you are going home the day of your procedure, you will need a family member or friend to stay during the procedure and drive you home after your procedure. Your log driver must be 18 years of age [...] the day of surgery [facility] History of Present illness Narrative* Romelia Mcclain NP - 04/29/2024 8:00 AM EDT Images from the original note were not included. Subjective Patient ID: Arianne Ko is a 78 y.o. female. LT Knee 2 weeks s/p depo medrol injection (04/15/24) with 50% improvement, notes it does not feel as unstableas before, and she still has all of [...] about, discussed also using voltaren gel and shewill contact her back surgeon and see if this is ok, activities as tolerated, f/U prn [id number] History of Present illness Narrative* Romelia Mcclain NP - 04/15/2024 11:15 AM EDTAssociated Order(s): L Inj/Asp: L knee Post-Procedure Diagnose(s): Arthritis of left knee Images from the original note were not included. Subjective Patient ID: Arianne Ko is a 78 y.o. female. LT Knee LT knee pain x 5+years (2019) NKI. Notes she has to go up and down stairs one leg at a time. Pain anterior, below and above patella. Notes she also gets some lower leg pain, but believes this stems from her foot, she had bunion surgery in November. Describes pain as a constant dull ache and canbe sharp with certain movements. She was told [...] [facility] 04/15/24 Objective Left Knee Exam Tests Jli: Medial - negative Lateral - negative Knee [...] fractures detected. Impression: Osteoarthritis bilateral knees Echo Marcus Hines Inj/Asp: L knee on 04/15/2024 11:43 [...] an injection, side effects of bleeding and infectiondiscussed, would like to proceed with the injection, using aspectic technique 40 mg of depo medrol was injected into the left lateral knee, pt tolerated well, bandaid applied, may do activities as tolerated, f/u in 2 weeks. [facility] [id number] [facility] note* Encounter Date Diagnosis Assessment Notes Treatment Notes Treatment Clinical Notes Aug, Chronic diarrhea (ICD-10 - K52.9) Pt states that levsin did help her symptoms. Still has diarrhea 3-4 x daily, worse after eating. Scheduled for EGD and colonoscopy in Sep. Aug, Pain of left great toe (ICD-10 - M79.675) Pt requests referral. Did explain that they do not fit orthotics, may want to try OTC ones in meantime. Referral placed. [facility] 01-10-2024 Evaluation note* Encounter Date Diagnosis Assessment Notes Treatment Notes Treatment Clinical Notes Aug, GERD (gastroesophageal reflux disease) (ICD-10 - K21.9) Aug, Chronic diarrhea (ICD-10 - K52.9) Patient reports that her last colonoscopy was at the [facility] about 11 years ago and that she can not remember who preformed the procedure Aug, Abdominal pain (ICD-10 - R10.9) Aug, Weight loss, unintentional (ICD-10 - R63.4) Aug, Change in bowel habits (ICD-10 - R19.4) Patinet is advised to have a colonoscopy ordered, scheduled and prep instructions given today Risks and benefits of procedure explained to patient; patient verbalizes understanding. [facility] Other 12-04-2023 Evaluation note* Encounter Date Diagnosis [...] (ICD-10 - M81.0) Due for Dexa 08/2023 [facility] 02-16-2023 NoteCONSULTATION CONSULTATION DATE: 09/27/2022 HISTORY OF PRESENT ILLNESS: This is a 76-year-old female who returns to the clinic status post LES on 09/11/2022. The patient states she was afforded between 50-60% relief. Depending on her physical activity, determines her level of comfort. 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, housework and lifting greatly aggravate [...] Patient is in agreement with this plan.[facility] [id number] NoteCONSULTATION CONSULTATION DATE: 09/04/2022 HISTORY OF PRESENT [...] patient understands and would like to proceed.[facility] [id number] NoteCONSULTATION CONSULTATION DATE: 07/11/2022 HISTORY OF PRESENT [...] followed up in the clinic post procedure.[facility] [id number] NoteCONSULTATION PROCEDURE DATE: 07/11/2022 PREOPERATIVE DIAGNOSIS: Bilateral [...] will be followed up in the clinic.[facility] 06-06-2022 NoteCONSULTATION CONSULTATION DATE: 06/06/2022 [...] pain returning. 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 The patient has not seen a executive steward in the past. REVIEW OF SYSTEMS, PAST [...] mg q.h.s. A referral to rheumatology near [place] will be sent on her behalf and I highly encouraged her to seek consultation, particularly since she has a familial history of autoimmune diseases. The patient agrees with the plan of care and will be followed up in the office in three months' time. [facility] Signed and Approved by: MICHELE SALDAÑA . 03/02/2022 14:16:00[facility]04-21-2022 NoteCONSULTATION Consultation Date:11/30/2021 PREOPERATIVE DIAGNOSIS: Right [...] will be followed up in the office. [facility] Signed and Approved by: MICHELE SALDAÑA . 12/06/2021 16:15:00[facility]04-21-2022 NoteCONSULTATION Consultation Date:11/30/2021 PAIN MANAGEMENT CONSULTATION [...] her pain are twisting, turning, pushing, pulling, administrative office assistant hours, lifting and transitioning positions. Lying down and using heat decrease her pain. Prior to the procedure, she was in a state of acute pain and was placed on a short term course of [place] 5/325 b.i.d. p.r.n. Patient states she only [...] of care and would like to proceed. [facility] Signed and Approved by: MICHELE SALDAÑA . 12/06/2021 16:15:00[facility]Evaluation noteNo InformationNort AlephD Other Evaluation noteNo assessment information available [facility] Work Phone: Evaluation note* Diagnosis Onset Date Resolution Status Lumbar spondylosis acute Preoperative clearance acute Situational depression acute [facility] Work Phone: Evaluation note* Diagnosis Pre-op testing- Primary Preoperative examination, unspecified Chronic right SI joint pain Disorders of sacrum [facility]Evaluation [facility]* Diagnosis Sacroiliitis (HCC) Sacroiliitis, not elsewhere classified documented in this encounter [facility] [employer]aluation note* Diagnosis Left knee pain, unspecified chronicity- Primary Arthritis of left knee documented in this encounter [facility] HealthcareEvaluation note* Diagnosis Left knee pain, unspecified chronicity- Primary Arthritis of left knee documented in this encounter [facility] HealthcareEvaluation note* Diagnosis Arthritis of carpometacarpal (CMC) joint of left thumb- Primary Pain of left thumb Left hand pain Pain in soft tissues of limb documented in this encounter [facility] HealthcareEvaluation [facility]* Diagnosis Arthritis of carpometacarpal (CMC) joint of right thumb- Primary Pain of right thumb Acute pain of left knee Chondromalacia, patella, left documented in this encounter [facility] HealthcareEvaluation note* Diagnosis Arthritis of left knee documented in this encounter [facility] HealthcareEvaluation note* Diagnosis Onset Date Resolution Status Admit Date Collagenous colitis acute Augus 2024 1:29pm Dyspepsia acute March 19 1:29pm GERD (gastroesophageal reflu x disease) acute March 19, 2025 1:29pm Medicare annual wellness vis it, subsequent acute March 19, 2025 1:29pm Osteoarthritis of lumbar spine acute March 19, 2025 1:29pm [facility] Work Phone: History and physical note Author Sunny Torres [facility] October 02, 2023 8:54am Note Date/Time October 02, 2023 8:54am [facility] [address] [place] [address] Gastroenterology H&P Signed Patient: Arianne Ko MR#: [id number] : 1945 Acct:[id number] Age/Sex: 78 / F Adm Date: 4 Loc: Room: Type: [facility] Attending Dr: Sunny Torres MD [...] signed by Sunny Torres MD> 10/02/23 0854 [facility] Work Phone: History and physical note Author Sunny Torres [facility] March 20, 2024 8:43am Note Date/Time March 20, 2024 8:4 3am [facility] [address] [place] [address] Gastroenterology H&P Signed Patient: Arianne Ko MR#: [id number] : 1945 Acct:[id number] Age/Sex: 78 / F Adm Date: 4 Loc: Room: Type: [facility] Attending Dr: Sunny Torres MD [...] By: <Electronically signed by Sunny Torres MD> 03/20/2443 [facility] Work Phone: History general Narrative - Reported* [...] shoulder pain 1982 Hospitalization History migraines 1992 [facility] Other Hospital Discharge instructions Additional Instructions DISCHARGE [...] up in the office - Office number [phone]. [facility] Work Phone: Reason for referral (narrative)No reason for referral information availableHolzer Hospital Work Phone: Summary Purpose Family History Relationship [...] 1 Chronic diarrhea (K5 2.9) Referral Organization [facility] [employer] Referring Provider First Name Viky Referring Provider Last Name Abdoulaye Referring Provider Specialty [facility] [employer] Referred Organization [facility] Referred Address [address],[address] Referred Provider Specialty [facility]astro[facility] Referral Priority Routine Reason *FU 09/06 R foot p ain Diagnosis 1 Pain of left great t oe (M79.675) Referral Organization [facility] [employer] Referring Provider First Name Viky Referring Provider Last Name Abdoulaye Referring Provider [facility] [employer] Referred Organization [facility] Referred Provider Odin Chong Referred Address [address] [place], [place],[address] Referred Provider Specialty Podiatry - S urgical Chiropody Referral Priority Routine General Notes Shefali Carroll 12:44:49 PM >received today, notes locked, ins attached, referral faxed Specialty Diagnoses / Procedures Referred By Fabián martinez Referred To Contact Radiology Diagnoses Sacroiliitis (HCC) Procedures CT PELVIS WO CONTRAST Additional Contrast? None Dany, Echo Mir DO [address] [place] [address] Referral ID Status Reason Start Date Expiration Date Visits Re quested Visits Authorized [id number] Closed 06/24/2024 06/24/2025 1 1 Specialty Diagnoses / Procedures Referred By Fabián martinez Referred To Contact Orthopaedic Surgery Diagnoses Arthritis of left knee Procedures L Inj/Asp: L knee Sarahi, Romelia Keith, PATTERN LEASE INSPECTOR [address] [facility] [address] [place], [place] [id number] Referral ID Status Reason Start Date Expiration Date Visits Re quested Visits Authorized [id number] Closed 04/15/2024 10/12/2024 1 1 Chief Complaint [...] Visit Lumbar spondylosis Preoperative clearance Situational depression Chief Complaint Admit Date 1 month follow up August 03, 2024 9:58am Amb Documentation August 03, 2024 3:56pm 6 week follow up September 14, 2024 1 0:47am 1 month follow up October 16, 2024 1:33 pm Reason for Visit Admit Date Collagenous colitis August 03, 2024 9:58am GERD (gastroesophageal reflux disease) D ecember 2023 9:58am Irritable bowel syndrome with diarrhea D ecember 2023 9:58am Collagenous colitis September 14, 2024 1 0:47am Frequent stools September 14, 2024 1 0:47am Irritable bowel syndrome with diarrhea F 2024 10:47am Collagenous colitis October 16, 2024 1:33 pm GERD (gastroesophageal reflux disease) [facility] 2024 1:33pm Chief Complaint Admit Date 6 week follow up September 14, 2024 1 0:47am 1 month follow up October 16, 2024 1:33 pm 5WK F/U GERD November 30, 2024 2:0 4pm Reason for Visit Admit Date Collagenous colitis September 14, 2024 1 0:47am Frequent stools September 14, 2024 1 0:47am Irritable bowel syndrome with diarrhea [facility]2024 10:47am Collagenous colitis October 16, 2024 1:33 pm GERD (gastroesophageal reflux disease) [facility] 2024 1:33pm Chief Complaint Admit Date wellness March 19, 2025 1:2 9pm Reason for Visit Admit Date Collagenous colitis March 19, 2025 1:2 9pm Dyspepsia March 19, 2025 1:2 9pm GERD (gastroesophageal reflux disease) A ugust 2024 1:29pm Medicare annual wellness visit, althea finley March 19, 2025 1:29pm Osteoarthritis of lumbar spine March 1:29pm Additional Source Comments INFORMATION SOURCE (unrecogn ized section and content) DATE CREATED AUTHOR 05/09/2022 [facility] DATE CREATED AUTHOR AUTHOR'S ORGANIZ ATION 11/17/2022 [facility] DATE CREATED AUTHOR AUTHOR'S ORGANIZ ATION 04/01/2024 [facility] DATE CREATED AUTHOR AUTHOR'S ORGANIZ ATION 06/14/2024 [facility] DATE CREATED AUTHOR AUTHOR'S ORGANIZ ATION 06/30/2024 [facility] DATE CREATED AUTHOR AUTHOR'S ORGANIZ ATION 08/07/2024 [facility] DATE CREATED AUTHOR AUTHOR'S ORGANIZ ATION 01/08/2025 [facility] DATE CREATED AUTHOR AUTHOR'S ORGANIZ ATION 03/16/2025 [facility] REASON FOR VISIT (unrecogniz ed section and content) Specialty Diagnoses / Procedures Referred By Fabián t Referred To Contact Radiology Diagnoses Sacroiliitis (HCC) Procedures CT PELVIS WO CONTRAST Additional Contrast? None Ham, Echo Mir, DO [address] [place] [address] Referral ID Status Reason Start Date Expiration Date Visits Re quested Visits Authorized [id number] Closed 06/24/2024 06/24/2025 1 1 Reason Comments Follow-up Reason Comments Pain Reason Comments Pain Reason Onset Date Comments injection 03/15/2025 Care Teams (unrecognized sec tion and content) [...] Provider Act cara Start: March 20, 2024 Dye Expert Relationship Specialty Start Date End Date Viky Stanford MD [address] [place] [phone] PCP - General Family Medicine 06/02/24 Dye Expert Relationship Specialty Start Date End Date Viky tSanford MD [address] [place] [phone] PCP - General Family Medicine 06/02/24 Dye Expert Relationship Specialty Start Date End Date Viky Stanford MD [address] [place] [phone] PCP - General Family Medicine 12/31/22 Dye Expert Relationship Specialty Start Date End Date Viky Stanford MD [address] [place] [facility] [phone] PCP - General Family Medicine 12/31/22 Dye Expert Relationship Specialty Start Date End Date Viky Stanford MD [address] [place] [facility] [phone] PCP - General Family Medicine 12/31/22 Dye Expert Relationship Specialty Start Date End Date Viky Stanford MD [address] [place] [facility] [id number] PCP - General Family Medicine 12/31/22 Team Status: Inactive Member Role Status Dates Viky Stanford MD Primary Care Provider Active Start: August 03, 2024 End: August 03, 2024 Bartolome Kim APRN Attending Provider Active Start: August 03, 2024 End: August 03, 2024 Team Status: Active Member Role Status Dates Viky Stanford MD Primary Care Provider Active Start: August 03, 2024 Chayo Figueroa CMA Attending Provider Active Start: August 03, 2024 Team Status: Inactive Member Role Status Dates Viky Stanford MD Primary Care Provider Active Start: September 14, 2024 End: September 14, 2024 Bartolome Kim APRN Attending Provider Active Start: September 14, 2024 End: September 14, 2024 Team Status: Active Member Role Status Dates Viky Stanford MD Primary Care Provide r, Attending Provider Active Start: October 01, 2024 Team Status: Inactive Member Role Status Dates Viky Stanford MD Primary Care Provider Active Start: October 16, 2024 End: October 16, 2024 Bartolome Kim APRN Attending Provider Active Start: October 16, 2024 End: October 16, 2024 Team Status: Inactive Member Role Status Dates Viky Stanford MD Primary Care Provider Active Start: November 30, 2024 End: November 30, 2024 Bartolome Kim APRN Attending Provider Active Start: November 30, 2024 End: November 30, 2024 Dye Expert Relationship Specialty Start Date End Date Viky Stanford MD PCP - General Family Medicine 12/31/22 Dye Expert Relationship Specialty Start Date End Date Viky Stanford MD PCP - [facility] Medicine 12/31/22 Dye Expert Relationship Specialty Start Date End Date Viky Stanford MD PCP - [facility] Medicine 12/31/22 Dye Expert Relationship Specialty Start Date End Date Viky Stanford MD PCP - [facility] Medicine 12/31/22 Team Status: Inactive Member Role Status Dates Viky Stanford MD Primary Care Provider Active Start: March 19, 2025 End: March 19, 2025 Viky Stanford MD Attending Provider Active St art: March 19, 2025 End: March 19, 2025 Goals (unrecognized section and content) Goals may be documented in a n alternate section FOR RECORDS PERTAINING TO PATIENTS WHO ARE [...] BE BASED ON THE PRIMARY CLINICAL RECORDS. [employer] provides no warranty or guarantee of the accuracy or completeness of information in this document.
== END 2025-03-23 12:54 | disposition home or self-care (01) ==
LOC: CT 12:53
PROVIDERS: PCP Family Medicine; Visit Provider Orthopaedic Surgery Orthopaedic Surgery of the Spine
DX: M54.32 Sciatica, left side (principal); M51.369 Other intervertebral disc degeneration, lumbar region without mention of lumbar back pain or lower extremity pain; M51.34 Other intervertebral disc degeneration, thoracic region
CPT/HCPCS: 72131

== ENCOUNTER 2025-03-25 08:48 | Outpatient (OUT) | payer MEDICARE, SELFPAY ==
--- OUTSIDE RECORDS SUMMARY | 2025-03-11 10:10 | XMS_ITS | Encounter Summary ---
Author Organization [facility] Address [address] [place] [address] Care Team Providers Care Implementation Specialist Name Role Phone Marnie Brooks MD Primary Care Provider [phone] Reason for Visit * Reason Comments Pain Encounter Details Date Type Department Care Team (Late st Contact Info) Description 03/11/2025 10:10 AM EDT Office Visit [facility] [address] [place] [phone] Randy Rios MD [address] [place] [phone] Osteoarthritis of carpometacarpal (CMC) joint of left thumb, unspecified osteoarthritis type (Primary Dx) Social History Tobacco Use Types Packs/Day Years Used Date Smoking Tobacco: Never Smokeless Tobacco: Never PHQ-2 Answer Date Recorded Patient Health Questionnaire-2 Score 0 05/25/2022 [place] Safety & Environment Answer Date Rec orded Fear of Current or Ex-Partner Not on file Emotionally Abused Not on file 10/03/2023 Physically Abused Not on file 10/03/2023 Sexually Abused Not on file 10/03/2023 Physically or Sexually Abused Not on file Comments Unknown Sex and Gender Information Value Date Recorded Sex Assigned at Female 03/11/2025 9:52 AM EDT Legal Sex Female 3:21 PM EDT Gender Identity Female 03/11/2025 9:52 AM EDT Sexual Orientation Choose not to disclose 2024 9:52 AM EDT documented as of this encounter Last Filed Vital Signs Vital Sign Reading Time Taken Comments Blood Pressure - - Pulse - - Temperature - - Respiratory Rate - - Oxygen Saturation - - Inhaled Oxygen Concentration - - Weight 55.8 kg (123 lb) 03/11/2025 9:54 AM EDT Height - - Body Mass Index 22.5 05/25/2022 10:11 AM EDT documented in this encounter Progress Notes * Wolf Castorena MD - 03/11/2025 10:10 AM EDT Subjective Chief complaint: Chief Complaint Patient presents with Left Thumb - Pain 03/11/25 Arianne Ko is a 79 y.o. female presenting for evaluation of chronic left thumb pain that has beenpresent for multiple years. Patient states that she started receiving corticosteroid injections into the left thumb CMC joint back in 2019. Initially, these injections were beneficial. However, she has reached a point where the steroid injections no longer provide symptomatic relief. Her last steroid injection into the thumb was approximately 4 weeks ago. Patient states she has difficulty with activities of daily living due to her symptoms in the left thumb. Denies any prior surgery to the lefthand. Patient states she has similar symptoms in the right thumb but they are less severe. Denies numbness, tingling, and weakness. ROS: Denies fevers, chills, and other constitutional symptoms. Denies shortness of breath. History Surgical History[1] Medical History[2] Objective General: Body mass index is 22.5 kg/m??. There were no vitals filed for this visit. No acute distress, comfortable Respiratory: Unlabored breathing with normal rate, no cough Cardiovascular: Warm well perfused extremities Psych: Appropriate mood behavior Left hand: Inspection- no swelling, no erythema, no deformity Tender to palpation over first thumb CMC joint. Thumb: normal A1 erica and AROM, Index finger: normal A1 erica and AROM, Long finger: normal A1 erica and AROM, Ring finger: normal A1 erica and AROM, and Small finger: normal A1 erica and AROM Strength: cost accountant 5/5, thumb 5/5, interossei 5/5 Sensation: intact over median, ulnar, and radial nerve distributions Tinel (-) at carpal tunnel Carpal compression test (-) Phyllis's test (-) positive CMC grind test. Cardiovascular: digits WWP, BCR x5 Imaging: X-rays of the left thumb performed in 2021 were reviewed which reveals: Arthritic changes noted to the first CMC joint with subluxation of the base of the metacarpal relative to the trapezium. Assessment/Plan Arianne Ko is a 79 y.o. female with Osteoarthritis of carpometacarpal (CMC) joint of left thumb, unspecified osteoarthritis type We had a discussion today about treatment options moving forward. At this point in time, patient has exhausted multiple conservative treatment modalities including activity modification, bracing, NSAIDs, steroid injections. She would like to proceed with surgical intervention in the form of left thumb Marin's arthroplasty and any other indicated procedures. Consent was obtained today in clinic. All questions and concerns were addressed. Patient will follow-up for surgical intervention. Wolf Castorena MD Orthopedic Surgery Resident, PGY-4 Pager: [phone] 03/11/25 10:10 AM This note was created with the assistance of a speech-recognition program. While intending to generate a document that accurately reflects the content of the encounter, no guarantee can be provided that every mistake has been identified and corrected by editing. GC: I saw this patient. I personally performed the critical/babcock portions that determines the level of service. I was directly involved in the management and treatment plan of the patient. I reviewed resident's note and agree with the documentation [1] History reviewed. No pertinent surgical history. [2] History reviewed. No pertinent past medical history. Cosigned by Randy Rios MD at 03/11/2025 8:58 PM EDT documented in this encounter Plan of Treatment Upcoming Encounters Date Type Department Care Team (Late st Contact Info) Description 03/29/2025 8:45 AM EDT Hospital Encounter [facility] [address] [place] [address] [place] [phone] Randy Rios MD [address] [place] [address] [place] [phone] 03/29/2025 8:45 AM EDT - 03/29/2025 10:00 AM EDT Surgery [facility] [address] [place] [address] [place] [address] Randy Rios MD [address] [place] [address] MARIN'S ARTHROPLASTY [[id number] (CPT )] 04/08/2025 10:20 AM EDT Office Visit [facility] [address] [place] [phone] Randy Rios MD [address] [place] [address] Scheduled Procedures Name Priority Associated Diagnoses Date/Ti me ARTHROPLASTY, CMC JOINT, THUMB Osteoarthritis of carpometacarpal (CMC) joint of left thumb, unspecified osteoarthritis type 03/29/2025 8:45 AM EDT documented as of this encounter Visit Diagnoses Diagnosis Osteoarthritis of carpometacarpal (CMC) joint of left thumb, unspecified osteoarthritis type- Primary Osteoarthritis of carpometacarpal (CMC) joint of left thumb- Primary Osteoarthritis of carpometacarpal (CMC) joint of left thumb, unspecified osteoarthritis type documented in this encounter Care Teams Implementation Specialist Relationship Specialty Start Date End Date Alt-Marnie Matthews MD [address] [place] [address] PCP - General 04/20/22 documented as of this encounter
--- OUTSIDE RECORDS SUMMARY | 2025-03-25 08:51 | XMS_ITS | Encounter Summary ---
Author Organization [facility] Address [address] [place] [place] [address] Care Team Providers Care Kindergarten Teacher Assistant Name Role Phone Marnie Brooks MD Primary Care Provider [phone] Encounter Details Date Type Department Care Team (Latest Contact Info) Description 03/22/2025 Travel Social History Tobacco Use Types Packs/Day Years Used Date Smoking Tobacco: Never Smokeless Tobacco: Never PHQ-2 Answer Date Recorded Patient Health Questionnaire-2 Score 0 05/25/2022 [place] Safety & Environment Answer Date Rec orded [...] AM EDT documented as of this encounter Plan of Treatment Upcoming Encounters Date Type Department Care Team (Late st Contact Info) Description 03/29/2025 8:45 AM EDT [facility] [address] [place] [phone] Randy Rios MD [address] [place] [address] 03/29/2025 8:45 AM EDT - 03/29/2025 10:00 AM EDT Surgery [facility] [address] [place] [address] [place] [phone] Randy Rios MD [address] [place] [place] [address] [facility] ARTHROPLASTY [[id number] (CPT )] 04/08/2025 10:20 AM EDT Office Visit [facility] [address] [place] [phone] Randy Rios MD [address] [place] [address] Scheduled Procedures Name Priority Associated Diagnoses Date/Ti me ARTHROPLASTY, CMC JOINT, THUMB Osteoarthritis of carpometacarpal (CMC) joint of left thumb, unspecified osteoarthritis type 03/29/2025 8:45 AM EDT documented as of this encounter Visit Diagnoses Not on filedocumented in this encounter Care Teams Kindergarten Teacher Assistant Relationship Specialty Start Date End Date Alt-Marnie Matthews MD [address] [place] [address] PCP - General 04/20/22 documented as of this encounter
--- OUTSIDE RECORDS SUMMARY | 2025-03-25 08:51 | XMS_ITS | Encounter Summary ---
Author Organization [facility] Address [address] [facility] [place] [address] Care Team Providers Care Electronic Die Maker Name Role Phone Patricia Nicolas MD Primary Care Provider [phone] Encounter Details Date Type Department Care Team (Late st Contact Info) Description 09/08/2023 Abstract [facility] [address] [place] [phone] Romelia Mcclain, SENIOR GAME DESIGNER Social History Tobacco Use Types Packs/Day Years Used Date Smoking Tobacco: Never Smokeless Tobacco: Never Tobacco Cessation:Counseling Given: Not Answered Alcohol Use Standard Drinks/Week Comments Yes 0 (1 standard drink = 0.6 oz pur e alcohol) 5-6x/year Comments Unknown Sex and Gender Information Value Date Recorded Sex Assigned at Not on file Legal Sex Female 7:16 PM EDT Gender Identity Not on file Sexual Orientation Not on file documented as of this encounter Plan of Treatment Not on file documented as of this encounter Visit Diagnoses Not on filedocumented in this encounter Care Teams Electronic Die Maker Relationship Specialty Start Date End Date Patricia Nicolas MD PCP - General Family Medicine 12/31/22 documented as of this encounter
--- OUTSIDE RECORDS SUMMARY | 2025-03-25 08:51 | XMS_ITS | Clinical Summary ---
Author Organization [facility] Address [facility] [place] [facility] [id number] [facility] [place] [address] Care Team Providers Care Cloud Systems Administrator Name Role Phone Unavailable Primary Care Provider Unavailabl e Social History Tobacco Use Types Packs/Day Years Used Date Smoking Tobacco: Never Assessed Childcare Answer Date Recorded Childcare Unknown 01/21/2019 Employment Answer Date Recorded Employment Unknown 01/21/2019 Purpose - Life Answer Date Recorded Purpose and direction in life Unknown Comments Unknown Sex and Gender Information Value Date Recorded Sex Assigned at Not on file Legal Sex Female 11:41 AM EDT Gender Identity Not on file Sexual Orientation Not on file Plan of Treatment Health Maintenance Due Date Last Done Comments Depression Screening 1957 Tobacco Screening 1957 Fall Risk Screening 2011 COVID-19 Vaccine (2023-2 5 season) 2024 06/19/2021, 10/18/2020, 09/19/2020 Influenza Vaccine 04/12/2025 04/23/2022, , 04/16/2020, Additional history exists DTaP,Tdap and Td Vaccines (3 - Td or Tdap) 04/23/2032 04/23/2022, 05/27/2013 Zoster (Shingles) Vaccine Completed 10/09/2022, 01/2022 Medical Devices Not on file Insurance MEDICARE [facility]
--- OUTSIDE RECORDS SUMMARY | 2025-03-25 08:51 | XMS_ITS | Encounter Summary ---
Author Organization [facility] Address [address] [place] [address] Care Team Providers Care Club Steward Name Role Phone Patricia Nicolas MD Primary Care Provider [phone] Reason for Referral * Consultation (Routine) - Closed Specialty Diagnoses / Procedures Referred By Fabián martienz Referred To Contact Pain Medicine Diagnoses Arthritis of left knee Procedures DC OFFICE/OUTPATIENT [facility] 60 MINUTES Star Garcia NP [address] [place] [address] Phone: tel: fax: Gloria Dixon MD [address] [facility], [address], [place] [address] Phone: tel: fax: Referral ID Status Reason Start Date Expiration Date V isits Requested Visits Authorized [id number] Closed Specialty Services Required 03/15/2025 09/11/2025 1 1 Reason for Visit * Reason Onset Date Comments injection 03/15/2025 Encounter Details Date Type Department Care Team (Late st Contact Info) Description 03/15/2025 Telephone [facility] [address] [facility] [address] [address] [place] Wilson, [place] [address] [facility] [place] [address] injection Social History Tobacco Use Types Packs/Day Years Used Date Smoking Tobacco: Never Smokeless Tobacco: Never Alcohol Use Standard Drinks/Week Comments Yes 0 (1 standard drink = 0.6 oz pur e alcohol) 5-6x/year Comments Unknown Sex and Gender Information Value Date Recorded Sex Assigned at Not on file Legal Sex Female 7:16 PM EDT Gender Identity Not on file Sexual Orientation Not on file documented as of this encounter Miscellaneous Notes * Telephone Encounter - COREY Zimmer - 03/15/2025 2:40 PM EDT Referral placed and sent. * Telephone Encounter - Tresa Gallego - 03/15/2025 2:14 PM EDT Patient called in stating Ronald told her about a chicken injection for her LT knee. She is requesting a referral be sent to [facility] for this. Please advise [phone]. documented in this encounter Plan of Treatment Scheduled Referrals Name Type Priority Associated Diagnoses Order Schedule Ambulatory referral to Pain Medicine Outpatient Referral Routine Arthritis of left knee Expected: 03/15/2025 (Approximate), Expires: 09/15/2025 documented as of this encounter Visit Diagnoses Diagnosis Arthritis of left knee documented in this encounter Care Teams Club Steward Relationship Specialty Start Date End Date Patricia Nicolas MD PCP - General Family Medicine 12/31/22 documented as of this encounter
--- OUTSIDE RECORDS SUMMARY | 2025-03-25 08:51 | XMS_ITS | Clinical Summary ---
Author Organization [facility] Address [address] [place] [address] Care Team Providers Care Yard Jockey Name Role Phone hSital-Marnie Matthews MD Primary Care Provider [phone] Allergies No known active allergies Medications baclofen (Lioresal) 10 mg tablet 1 tablet with food or milk Active diclofenac (Voltaren) 50 mg EC tablet every 12 (twelve) hours. Active denosumab (Prolia) 60 mg/mL syringe See administration instructions. Active multivitamin capsule Take 1 capsule by mouth in the morning. Active omega 7-ojd-qah-fish oil 1,000 mg (120 mg-180 mg) capsule Take by mouth twice a day. Active omeprazole (PriLOSEC) [address] capsule 1 (one) time each day at the same time. Active traMADol (Ultram) 50 mg tablet 1 (one) time each day at the same time. Active pantoprazole (Protonix) 40 mg EC tablet Take 40 mg by mouth before breakfast. Active Active Problems Problem Noted Date Diagnosed Date Osteoarthritis of carpometacarpal (CMC) joint of left thumb 03/11/2025 Sacroiliitis 11/17/2012 Lumbosacral spondylosis without myelopathy 08/29 Sacroiliac joint pain 08/29/2012 Spondylolisthesis 08/29/2012 Encounters Date Type Department Care Team Description 03/22/2025 Travel 03/11/2025 10:10 AM EDT Office Visit [facility] [address] [facility] [address] [place] [address] Randy Rios MD Osteoarthritis of carpometacarpal (CMC) joint of left thumb, unspecified osteoarthritis type (Primary Dx) from Last 3 Months Social History Tobacco Use Types Packs/Day Years Used Date Smoking Tobacco: Never Smokeless Tobacco: Never Tobacco Cessation:Counseling Given: Not Answered PHQ-2 Answer Date Recorded Patient Health Questionnaire-2 Score 0 05/25/2022 [place] Safety & Environment Answer Date Rec orded [...] not to disclose 2024 9:52 AM EDT Last Filed Vital Signs Vital Sign Reading Time Taken Comments Blood Pressure 115/75 05/25/2022 10:11 AM EDT Pulse 80 05/25/2022 10:11 AM EDT Temperature - - Respiratory Rate - - Oxygen Saturation - - Inhaled Oxygen Concentration - - Weight 55.8 kg (123 lb) 03/11/2025 9:54 AM EDT Height 157.5 cm (5' 2 ) 05/25/2022 10:11 AM EDT Body Mass Index 22.5 05/25/2022 10:11 AM EDT Plan of Treatment Upcoming Encounters Date Type Department Care Team (Late st Contact Info) Description 03/29/2025 8:45 AM EDT Hospital Encounter [facility] Invasive Surgery [address] [place] [address] Randy Rios MD [address] [place] [address] 03/29/2025 8:45 AM EDT - 03/29/2025 10:00 AM EDT Surgery [facility] Invasive Surgery [address] [place] [address] Randy Rios MD [address] [place] [address] MARIN'S ARTHROPLASTY [[id number] (CPT )] 04/08/2025 10:20 AM EDT Office Visit [facility] [address] [place] [address] Randy Rios MD [address] [place] [address] Scheduled Procedures Name Priority Associated Diagnoses Date/Ti me ARTHROPLASTY, CMC JOINT, THUMB Osteoarthritis of carpometacarpal (CMC) joint of left thumb, unspecified osteoarthritis type 03/29/2025 8:45 AM EDT Health Maintenance Due Date Last Done Comments Medicare Annual Wellness (AWV) 1945 Depression Screening 1957 Fall Risk Screening 2011 COVID-19 Vaccine ( season) 2024 06/19/2021, 10/18/2020, 09/19/2020 Influenza Vaccine (#1) 2025 , 04/16/2023, 04/23/2022, Additional history exists Adult Tetanus 04/23/2032 04/23/2022 Pneumococcal Vaccine: 50+ Years Completed 04/23/2022, 07/10/2017 Zoster Vaccines Completed 10/09/2022, 05/17/2022 HIB Vaccines Aged Out No longer eligi ble based on patient's age to complete this topic HPV Vaccines Aged Out No longer eligi ble based on patient's age to complete this topic IPV Vaccines Aged Out No longer eligi ble based on patient's age to complete this topic Meningococcal B Vaccine Aged Out No l onger eligible based on patient's age to complete this topic Meningococcal Vaccine Aged Out No jose gilbert eligible based on patient's age to complete this topic Rotavirus Vaccines Aged Out No longer eligible based on patient's age to complete this topic Insurance MEDICARE Care Teams Yard Jockey Relationship Specialty Start Date End Date Shital-Marnie Matthews MD [address] [place] [address] PCP - General 04/20/22
--- OUTSIDE RECORDS SUMMARY | 2025-03-25 08:51 | XMS_ITS | Clinical Summary ---
Author Organization [facility] Address [address] [place] [address] Care Team Providers Care Rfid Technician Name Role Phone Patricia Nicolas MD Primary Care Provider [phone] Allergies No known active allergies Medications baclofen (Lioresal) 10 MG tablet Take 10 mg by mouth at bedtime. Active diclofenac (Voltaren) 50 MG EC tablet Take 50 mg by mouth in the morning and 50 mg before bedtime. Active denosumab (Prolia) 60 MG/ML solution prefilled syringe as directed Subcutaneous Active cholecalciferol (Vitamin D-3) 50 MCG (2000 UT) tablet 1 (one) time each day at the same time. Active Calcium-Phospho sachin-Vitamin D (Citracal +D3) 250-107-500 MG-MG-UNIT chewable tablet as directed Orally Active traMADol (Ultram) 50 MG tablet (Schedule IV Drug) TAKE 1 TABLET BY MOUTH TWICE DAILY NEEDED Oral for 30 Active Magnesium 400 MG capsule as directed Orally Active Multiple Vitamin (MULTIVITAMIN ADULT PO) Take 1 capsule by mouth in the morning. Active pantoprazole (ProtoNix) 40 MG EC tablet Daily 4 Active calcium citrate 315 mg + D2 6.25 mcg tablet 1 tablet 4 Active budesonide EC (Entocort EC) 3 MG 24 hr capsule TAKE 3 CAPSULES BY MOUTH DAILY for EIGHT weeks, then TAKE 2 CAPSULES DAILY FOR 14 DAYS, then TAKE 1 CAPSULE DAILY FOR 14 DAYS 4 Active escitalopram (Lexapro) 10 MG tablet Take 10 mg by mouth Daily 4 Active Active Problems No known active problems Encounters Date Type Department Care Team Description 03/15/2025 Telephone [facility] [address] [place] [address] Sunny Wilson PA injection 12/29/2024 11:30 AM EDT Ancillary Procedure [address] [place] [address] 12/29/2024 11:25 AM EDT Ancillary Procedure [address] [place] [address] 12/29/2024 11:15 AM EDT [address] [place] [phone] Sunny Wilsno PA Arthritis of carpometacarpal (CMC) joint of right thumb (Primary Dx); Pain of right thumb; Acute pain of left knee; Chondromalacia, patella, left 12/29/2024 Bamboo flowsheet [address] [place] [address] Sunny Wilson PA 12/29/2024 Travel 12/25/2024 8:50 AM EDT Ancillary Procedure [address] [place] [address] 12/25/2024 8:45 AM EDT Office Visit [address] [place] [address] Sunny Wilson PA Arthritis of carpometacarpal (CMC) joint of left thumb (Primary Dx); Pain of left thumb; Left hand pain 12/25/2024 Bamboo flowsheet [address] [place] [address] Sunny Wilson PA 12/25/2024 Travel from Last 3 Months Family History Medical History Relation Name Comments Cancer Father Cancer Mother Heart disease Mother Relation Name Status Comments Father Mother Social History Tobacco Use Types Packs/Day Years [...] on file Sexual Orientation Not on file Last Filed Vital Signs Vital Sign Reading Time Taken Comments Blood Pressure - - Pulse - - Temperature - - Respiratory Rate - - Oxygen Saturation - - Inhaled Oxygen Concentration - - Weight 59 kg (130 lb) 12/24/2022 12:00 PM EDT Height 157.5 cm (5' 2 ) 12/24/2022 12:00 PM EDT Body Mass Index 23.78 12/24/2022 12:00 PM EDT Plan of Treatment Health Maintenance Due Date Last Done Comments Influenza Vaccine (#1) 2025 4, 04/16/2023, 04/23/2022, Additional history exists Pneumococcal Vaccine: 65+ Years Completed 2, 07/10/2017 Procedures Procedure Name Priority Date/Time Associated Diagnosis Comments NM ARTHROCENTESIS ASPIR&/INJ SMALL JT/BURSA W/O US Routine 12/29/2024 11:50 AM EDT Arthritis of carpometacarpal (CMC) joint of right thumb NM ARTHROCENTESIS ASPIR&/INJ MAJOR JT/BURSA W/O US Routine 12/29/2024 11:50 AM EDT Chondromalacia, patella, left XR KNEE 1-2 VIEWS LEFT Routine 12/29/2024 11:23 AM EDT Acute pain of left knee XR FINGERS 2+ VIEWS RIGHT Routine 12/29/2024 11:20 AM EDT Pain of right thumb NM ARTHROCENTESIS ASPIR&/INJ SMALL JT/BURSA W/O US Routine 12/25/2024 9:05 AM EDT Arthritis of carpometacarpal (CMC) joint of left thumb XR HAND 3+ VIEWS LEFT Routine 12/25/2024 8:46 AM EDT Pain of left thumb from Last 3 Months Results * NM ARTHROCENTESIS ASPIR&/INJ SMALL JT/BURSA W/O US (12/29/2024 11:50 AM EDT) Sunny Lyman PA - 12/29/2024 11:50 AM EDT LAUREN Tao 12/29/2024 12:00 PM S Inj/Asp: R thumb CMC on 12/29/2024 11:50 AM Indications: pain and joint swelling Details: 21 G needle, dorsal approach Medications: 20 mg methylPREDNISolone acetate 40 MG/ML; 0.5 mL bupivacaine 0.5 % Outcome: tolerated well, no immediate complications Consent was given by the patient. Patient was prepped and draped in the usual sterile fashion. us Sunny AGUILAR IN CLINIC/BEDSIDE ORDERABLES Final Result * NM ARTHROCENTESIS ASPIR&/INJ MAJOR JT/BURSA W/O US (12/29/2024 11:50 AM EDT) Sunny Lyman PA - 12/29/2024 11:50 AM EDT LAUREN Tao 12/29/2024 12:00 PM L Inj/Asp: [...] and draped in the usual sterile fashion. us Sunny AGU[facility] IN CLINIC/BEDSIDE ORDERABLES Final Result * XR knee 1 or 2 views left (12/29/2024 11:23 AM EDT) Anatomical Region Laterality Modality Lower Extremities, Knee Left Radiogra [facility] Imaging Narrative 12/29/2024 11:58 AM EDT Imaging Result: AP and Lateral weight bearing Left knee No acute fracture or dislocation Slight osteopenia, mild effusion Advanced arthritic changes articular surface patella-femoral joint Weight bearing surface grossly symmetric, but chondrocalcinosis noted 2 small calcification posterior knee? Loose body or vascular Impression: No acute bony process with advanced patella femoral arthritis left knee us Sunny AGUILAR IMG XR PROCEDURES Final Resul t * XR fingers 2+ views right (12/29/2024 11:20 AM EDT) Anatomical Region Laterality Modality Upper Extremities, Fingers Right Radio graphic Imaging Narrative 12/29/2024 11:56 AM EDT Imaging Result: AP, lateral and oblique right thumb: No acute fracture or dislocation Advanced degenerative changes at CMC joint right thumb, subchondral sclerosis, bony erosion and enthesophyte's Mild to moderate wrist arthritic changes at DRUJ. Impression: Severe CMC arthritis right thumb. us Sunny AGUILAR IMG XR PROCEDURES Final Resul t * NM ARTHROCENTESIS ASPIR&/INJ SMALL JT/BURSA W/O US (12/25/2024 9:05 AM EDT) Narrative Sunny Wilson PA - 12/25/2024 9:05 AM EDT LAUREN Tao 12/25/2024 9:10 AM S Inj/Asp: [...] and draped in the usual sterile fashion. us Sunny AGUILAR IN CLINIC/BEDSIDE ORDERABLES Final Result * XR hand 3+ views left (12/25/2024 8:46 AM EDT) Anatomical Region Laterality Modality Upper Extremities, Hand Left Radiogra phic Imaging Narrative 12/25/2024 9:08 AM EDT Imaging Result: 3 view left hand: No acute fracture or dislocation Bone on bone articulation CMC joint of thumb No effusion No soft tissue swelling Minimal wrist arthritis Impression- severe cmc arthritis left thumb joint. us Sunny AGUILAR IMG XR PROCEDURES Final Resul t from Last 3 Months Insurance MEDICARE [facility] Care Teams Rfid Technician Relationship Specialty Start Date End Date Patricia Nicolas MD PCP - General Family Medicine 12/31/22
--- NOTE | 2025-03-25 08:52 | MR_ITS ---
[address] [address] Patient Name: LOOB MURDOCK MRN: [id number] date: 1945 Sex: F Assigned Patient Location: MRI Current Patient Location: MRI Accession/Order Number: [id number] Exam Date: 03/25/2025 10:16 Report Date: 03/25/2025 10:53 At the request of: VERONICA CARCAMO MD Procedure: MR lumbar spine wo con MRI lumbar spine performed without contrast INDICATION: Left-sided sciatica COMPARISON: MRI lumbar spine 11/21/2023 Mild dextrocurvature. Postsurgical changes status L4-5 decompression and posterior fusion. Right sacroiliac fusion hardware identified. 6 mm of grade 1 anterolisthesis L4-L5 identified. Moderate severe intervertebral space narrowing L4-S1. Nfum-wi-qhykjnvk degenerative vertebral space narrowing L3-L5. Lumbar vertebral heights maintained. Chronic compression deformity T11 estimated 70%. Degenerative endplate marrow changes at L5-S1 and less so L4-5. Conus medullaris terminates normally at L1-L2 paraspinal soft tissues unremarkable T12-L1: No significant disease central canal or neural foraminal narrowing identified. L1-2: Broad-based disc bulge with facet arthropathy. Mild foraminal narrowing. Canal is patent. L2-3: Broad-based disc bulge with dmkr-xs-pzammgal facet arthropathy. Wbtk-yc-rwhuijfo neural from narrowing ruso-hx-jbgbpmau central canal stenosis. L3-4: Circumferential disc bulge with endplate osteophytosis asymmetric into the left foramina. Bilateral facet arthropathy. Joqp-sz-ntevqgqr right-sided moderate left-sided moderate central canal stenosis. Cgnz-ah-omksotve right neural foraminal narrowing and moderate left neural foraminal narrowing. L4-5: Circumferential disc bulge with endplate osteophytosis setting of both foraminal zones. Moderate severe left foraminal narrowing. Moderate right foraminal narrowing. Canal is decompressed. L5-S1: Circumferential disc osteophyte complex extending to both foraminal zones causing moderate foraminal narrowing. Bilateral facet arthropathy. Canal is decompressed. MR/MR lumbar spine wo con IMPRESSION: Multilevel postsurgical and degenerative changes with severe left-sided neural foraminal narrowing L4-5. No high-grade canal or neural foraminal narrowing identified. Impression dictated by: Lucien Robles M.D. 03/25/2025 10:53 AM Dictation Location: [place] [address] Electronically authenticated by: [id number] Y Date: 03/25/2025 10:53
--- OUTSIDE RECORDS SUMMARY | 2025-03-25 08:52 | XMS_ITS | Clinical Summary ---
Author Organization [facility] Address [address], [address] [place] [address] Care Team Providers Care Fashion Stylist Name Role Phone Patricia Nicolas MD Primary Care Provider [phone] Allergies Active Allergy Reactions Criticality Noted Date Comments Calcitonin Other (See Comments) High 06/03/2024 Joint pain Fish Oil Other (See Comments) High 05/05/2024 Medications budesonide (ENTOCORT EC) 3 MG delayed release capsule Take 2 capsules by mouth every morning Decreasing doasage Active PANTOPRAZOLE SODIUM PO Take 40 mg by mouth daily Active tiZANidine (ZANAFLEX) 2 MG tablet Take 1 tablet by mouth 3 times daily as needed (pain/muscle spasm) 30 tablet Active Active Problems No known active problems Social History Tobacco Use Types Packs/Day Years Used Date Smoking Tobacco: Never Smokeless Tobacco: Never Tobacco Cessation:Counseling Given: Not Answered Alcohol Use Standard Drinks/Week Comments Yes 0 (1 standard drink = 0.6 oz pur e alcohol) occasioally only Interpersonal Safety Domain Source: IP Abuse Scr eening Answer Date Recorded Physical abuse Denies 06/09/2024 Verbal abuse Denies 06/09/2024 Emotional abuse Denies 06/09/2024 Financial abuse Denies 06/09/2024 Sexual abuse Denies 06/09/2024 Comments No Sex and Gender Information Value Date Recorded Sex Assigned at Female 06/07/2024 8:37 PM EDT Legal Sex Female 9:42 PM EST Gender Identity Female 06/07/2024 8:37 PM EDT Sexual Orientation Not on file Last Filed Vital Signs Vital Sign Reading Time Taken Comments Blood Pressure 105/61 06/09/2024 10:00 AM EDT Pulse 69 06/09/2024 10:00 AM EDT Temperature 36.1 C (97 F) 06/09/2024 8:56 AM EDT Respiratory Rate 18 06/09/2024 10:00 AM EDT Oxygen Saturation 100% 06/09/2024 10:00 AM EDT Inhaled Oxygen Concentration - - Weight 58.5 kg (129 lb) 06/09/2024 6:29 AM EDT Height 154.9 cm (5' 1 ) 06/09/2024 6:29 AM EDT Body Mass Index 24.37 06/09/2024 6:29 AM EDT Plan of Treatment Health Maintenance Due Date Last Done Comments Depression Screen 1957 Hepatitis C screen 1964 DEXA (modify frequency per FRAX score) 2001 COVID-19 Vaccine ( season) 2024 10/18/2020, 09/19/2020 Annual Wellness Visit (Medicare) 05/27/2024 Flu vaccine (#1) 03/12/2025 04/30/2024, 12/2022, 04/23/2022, Additional history exists DTaP/Tdap/Td vaccine (2 - Td or Tdap) 04/23/2032 04/23/2022, 05/27/2013 Pneumococcal 50+ years Vaccine Completed 04/23/2022, 07/10/2017, 12/24/2011 Shingles vaccine Completed 10/09/2022, 05/17/2022 Respiratory Syncytial Virus (RSV) or age 60 yrs+ Completed 05/29/2023 Hepatitis A vaccine Aged Out No longe r eligible based on patient's age to complete this topic Hepatitis B vaccine Aged Out No longe r eligible based on patient's age to complete this topic Hib vaccine Aged Out No longer eligi ble based on patient's age to complete this topic Meningococcal (ACWY) vaccine Aged Out No longer eligible based on patient's age to complete this topic Meningococcal B vaccine Aged Out No l onger eligible based on patient's age to complete this topic Polio vaccine Aged Out No longer elig ible based on patient's age to complete this topic Medical Devices Implanted Type Area Spray Gun Striper Device Identifier Shelf Expiration Date Model / Serial / Lot Joint Sacroiliac 11.5x50 Mm [employer]q - [id number] Implanted:Qty: 1 on 06/09/2024 by Beck Saenz DO at [facility] Right: Sacrum [employer] 08/30/2028 [id number] / / [id number] Joint Sacroiliac 11.5x35 Mm [employer]q - [id number] Implanted:Qty: 1 on 06/09/2024 by Beck Saenz DO at [facility] Right: Sacrum [employer] 08/20/2028 [id number] / / [id number] Joint Sacroiliac 11.5x35 Mm [employer]q - [id number] Implanted:Qty: 1 on 06/09/2024 by Beck Saenz DO at [facility] Right: Sacrum [employer] 11/27/2028 [id number] / / [id number] Insurance MEDICARE [employer] [facility] MEDICARE SUPP Care Teams Fashion Stylist Relationship Specialty Start Date End Date Patricia Nicolas MD [address] [place] [address] PCP - General Family Medicine 06/02/24
--- OUTSIDE RECORDS SUMMARY | 2025-03-25 08:53 | XMS_ITS | Clinical Summary ---
Author Organization [facility] Address [address] [place] [address] Care Team Providers Care Speech And Drama Teacher Name Role Phone Patricia Nicolas MD Primary Care Provider [phone] Allergies No known active allergies Medications alendronate (FOSAMAX) 70 mg tablet Take 70 mg by mouth once each week. Active GLUCOSAM SUL NA/CHONDR VILLANUEVA A NA (GLUCOSAMINE & CHONDROIT SUL.NA ORAL) Take by mouth once daily. Active Ybxno-6-IDR-EPA -Fish Oil 1,000 (120-180) mg cap Take by mouth twice daily. Active CALCIUM CARBONATE/VITAM IN D3 (VITAMIN D-3 ORAL) Take by mouth once daily. Active Multivitamin capsule Take 1 capsule by mouth once daily. Active acetaminophen-H YDROcodone (VICODIN) 5-500 mg tablet Take 1-2 pills as needed for severe pain only not more frequently than every 8 hours (Do Not exceed 2-3 per day) 20 tablet 0 3 Active celecoxib (CELEBREX) 200 mg capsule Take 200 mg by mouth once daily. Active Active Problems Problem Noted Date Diagnosed Date Sacroiliitis 11/17/2012 Spondylolisthesis 08/29/2012 Lumbosacral spondylosis without myelopathy 08/29 Sacroiliac joint pain 08/29/2012 Family History Medical History Relation Comments throat cancer [Other] Brother Prostate Cancer Father Cervical Cancer Mother uterine cancer [Other] Mother Relation Status Comments Brother Father Mother Social History Tobacco Use Types Packs/Day Years Used Date Smoking Tobacco: Never Alcohol Use Standard Drinks/Week Comments Yes 0 (1 standard drink = 0.6 oz pur e alcohol) occ Comments Unknown Sex and Gender Information Value Date Recorded Sex Assigned at Not on file Legal Sex Female 8:31 AM EST Gender Identity Not on file Sexual Orientation Not on file Last Filed Vital Signs Vital Sign Reading Time Taken Comments Blood Pressure 99/51 11/25/2012 10:18 AM EDT Pulse 77 11/25/2012 10:18 AM EDT Temperature 36.2 C (97.2 F) 11/25/2012 10:06 AM EDT Respiratory Rate 16 11/25/2012 10:18 AM EDT Oxygen Saturation 96% 11/25/2012 10:18 AM EDT Inhaled Oxygen Concentration - - Weight 60.8 kg (134 lb) 11/17/2012 9:16 AM EDT Height 160 cm (5' 3 ) 11/17/2012 9:16 AM EDT Body Mass Index 23.74 11/17/2012 9:16 AM EDT Plan of Treatment Health Maintenance Due Date Last Done Comments Anxiety Screening 1963 Depression Screening 1964 Hepatitis C Screening 1964 DTaP,Tdap,Td Vaccine (1 - Tdap) 1965 Diabetes Screening 1991 Pneumococcal Vaccine: 50+ (1 of 1 - PCV) 1996 Shingrix Vaccine (1 of 2) 1996 Bone Density Screening 2011 RSV Vaccine (1 - 1-dose 75+ series) 2021 Advance Directive Discussion 08/12/2024 Influenza Vaccine (#1) 2025 Insurance MEDICARE Member Subscriber Plan / Payer (Ef fective 2011-Present) Name:Arianne Ko Member ID:[id number] Relation to Subscriber:Self Name:Arianne Ko Subscriber ID:[id number] Payer ID:Not on file Group ID:Not on file Type:Medicare Address: [address] Member Subscriber Plan / Payer (Ef fective 2013-Present) Name:Arianne Ko Relation to Subscriber:Self Name:Arianne Ko Payer ID:[id number] (NAIC) Group ID:Not on file Type:[employer] Address: [facility] [address] [place] [id number] Care Teams Speech And Drama Teacher Relationship Specialty Start Date End Date Patricia Nicolsa MD [address] [place] [address] PCP - General Family Medicine 07/16/12
--- OUTSIDE RECORDS SUMMARY | 2025-03-25 08:53 | XMS_ITS | Encounter Summary ---
Author Organization [facility] Address [address], [address] [place] [address] Care Team Providers Care Data Support Specialist Name Role Phone Patricia Nicolas MD Primary Care Provider [phone] Reason for Referral * Imaging (Routine) - Closed Specialty Diagnoses / Procedures Referred By Contac t Referred To Contact Radiology Diagnoses Sacroiliitis Procedures CT PELVIS WO CONTRAST Additional Contrast? None Beck Saenz DO [address] [place] [address] Phone: tel: fax: Referral ID Status Reason Start Date Expiration Date Visits Re quested Visits Authorized [id number] Closed 06/24/2024 06/24/2025 1 1 Encounter Details Date Type Department Care Team (Latest Contact Info) Description 06/24/2024 Community Orders LINK [facility] Beck Saenz DO [address] [place] [address] Sacroiliitis (Primary Dx) Social History Tobacco Use Types [...] PM EDT Sexual Orientation Not on file documented as of this encounter Plan of Treatment Not on file documented as of this encounter Results * CT PELVIS WO CONTRAST Additional Contrast? None (06/26/2024 5:50 PM EST) Anatomical Region Laterality Modality Abdomen, Pelvis, Hip Computed To mography 06/28/2024 10:5 0 PM EST Impressions 06/28/2024 10:55 PM EST Fusion at the right SI joint. No osseous fusion at this time. Narrative 06/28/2024 10:55 PM EST EXAMINATION: CT OF THE PELVIS WITHOUT CONTRAST [...] needed?->No Reason for Exam: BACK PAIN, Sacroiliitis ([facility]) Additional signs and symptoms: Pt. [...] related to the previous surgery. Joint: Osteoarthritis Procedure Note Quyen Ruffin MD - 06/28/2024 EXAMINATION: CT OF THE PELVIS WITHOUT CONTRAST 06/26/2024 5:41 pm TECHNIQUE: CT of the pelvis was performed without the administration of intravenous contrast. Multiplanar reformatted images are provided for review. Adjustment of mA and/or kV according to patient size was utilized.Automated exposure control, iterative reconstruction, and/or weight based adjustmentof the mA/kV was utilized to reduce the radiation dose to as low asreasonably achievable. COMPARISON: None. HISTORY ORDERING SYSTEM PROVIDED HISTORY: Sacroiliitis ([facility]) TECHNOLOGIST PROVIDED HISTORY: BACK PAIN Is a 3D rendering on an independant workstation needed?->No Reason for Exam: BACK PAIN, Sacroiliitis ([facility]) Additional signs and symptoms: Pt. states back pain, sacral pain sinceSI joint fusion 06/09/24 FINDINGS: Bones: Previous posterior fixation of the lumbar spine. Posteriorosseous fusion. Vacuum disc at L5-S1. Anterolisthesis L4-5. Foraminal narrowingat L4-5. Laminectomy at L5-S1. Large amount of soft tissue thickening. Fusion at the right SI joint. Mild lucency around the the fixation.Mild widening of the SI joint this is subtle. Negative for osseous erosions. Minimal sclerosis at the left SI joint. There is no osseous bridging ofthe right SI joint. Osteitis pubis condensans. No widening of the SI joints. Mild osteoarthritic change of the hips bilaterally. No lytic lesions. Soft Tissue: Negative for effusion. Dense calcifications of the uterus.No free fluid in the pelvis. No hemorrhage or edema along the piriformis muscles. No hematoma within the buttocks. Edema in the subcutaneoustissues of the right buttock related to the previous surgery. Joint: Osteoarthritis IMPRESSION: Fusion at the right SI joint. No osseous fusion at this time. Beck Saenz DO [facility] CT ORDERABLES Final Result documented in this encounter Visit Diagnoses Diagnosis Sacroiliitis- Primary Sacroiliitis, not elsewhere classified Sacroiliitis Sacroiliitis, not elsewhere classified documented in this encounter Care Teams Data Support Specialist Relationship Specialty Start Date End Date Patricia Nicolas MD [address] [place] [id number] PCP - General Family Medicine 06/02/24 documented as of this encounter
--- OUTSIDE RECORDS SUMMARY | 2025-03-25 08:54 | XMS_ITS | CCD ---
Author Organization [facility] Care Team Providers Care Aquatic Instructor Name Role Phone PHYSICIAN, DEFAULT Admitting Unavailable [...] Unavailable MD Viky Stanford Primary Care Provider [phone] MD Melissa Imravindra Attending Provider MD Viky Stanford Primary Care Provider [phone] MD Sunny Torres Attending Provider [phone] Viky Stanford Primary Care Unavailable Asaad, Imad Admitting Unavailable Asaad, Imad Attending Unavailable Viky Stanford Primary Care Unavailable Asaad, Imad Admitting Unavailable Asaad, Imad Attending Unavailable Viky Stanford MD Primary Care Provider [phone] HAM, ECHO Mir Admitting Unavailabl e HAM, ECHO Mir Attending Unavailabl e VIKY STANFORD Primary Care Unavailable HAM, ECHO Mir Referring Unavailabl e [facility] Unavailable HAM, ECHO Mir Attending Unavailabl e HAM, ECHO Mir Referring Unavailabl e STANFORD, VIKY Primary Care Unavailable Viky Stanford MD Primary Care Provider [phone] Darrion DIAZ, Rivkarius Loomis Attending Unavailable Darrion DIAZ, Andrius Vladislav Attending Unavailable Darrion DIAZ, Andrius Loomis Attending Unavailable Darrion DIAZ, Andrius Vcuate Attending Unavailable Viky Stanford MD Primary Care Provider [phone] RAZIA WILSON Attending Unavailable RAZIA WILSON Referring Unavailable ROMELIA MCCLAIN Attending Unavailable RAZIA WILSON Attending Unavailable RAZIA WILSON Referring Unavailable RAZIA WILSON Referring Unavailable ROMELIA MCCLAIN Attending Unavailable ROMELIA MCCLAIN Attending Unavailable ROMELIA MCCLAIN Referring Unavailable ROMELIA MCCLAIN Attending Unavailable BRITTNEY RIOS Attending Unavailable Viky Stanford MD Primary Care Provider Viky Stanford MD Attending Provider Allergies Allergy Classification Reported Allergen(s) Allergy Type Date of Onset Reaction(s) Facility (8 sources) Calcitonin ([place]) *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 Propensity to adverse reactions Comment:severe weakness [employer] Other (6 sources) calcitonin; Translations: [calcitonin] Propensity to adverse reactions 4 Other (See Comments) [facility] Comment on above: nasal spray (1 source) Fish Oils Drug Allergy 4 Other (See Comments) [employer] (3 sources) salmon Allergy to substance 4 Unknown Reaction [facility] Medications Current Medications Medication Drug Class(es) [...] 13, 2024 12:00am Complies with drug therapy Bfjgtnj-Funkyzlgmz-Iomacgn D (Citracal +D3) 250-107-500 MG-MG-UNIT chewable tablet [...] Active Subcutaneous for 0 *Pick strength-form from [employer] for eRX* Aug, Active erythromycin 0.005 mg/mg [...] day for 0 days *Pick strength-form from [employer] for eRX* Oct, Active Magnesium 400 MG capsule as directed Orally Active magnesium oxide 400 mg oral tablet (4 sources) Start: 03-13-2024 take 1 tablet by mouth once daily Magnesium Oxide 400 mg (241.3 mg magnesium) tablet Active 400 MG PO Daily March 13, 2024 12:00am [employer] tablet with a meal Orally Once a day; Note: Source Status: Taking*Pick strength-form from [employer] for eRX*; Provider: Abdoulaye Gomez ( ) [...] capsule by mouth in the morning. Active Fdnnfhmo-Vyux-Gf -Calcium-Mins (Daily Multiple For Women) 18 mg iron-400 mcg-500 mg Ca tablet (4 sources) Start: 03-13-2024 take 1 tablet by mouth once daily Fnrohuxl-Qewj-Oh-Ca lcium-Mins (Daily Multiple For Women) 18 mg iron-400 mcg-500 mg Ca tablet Active 1 TAB PO Daily March 13, 2024 12:00am Complies with drug therapy Start: 03-13-2024 take 1 tablet by brijesh th once daily Andcnral-Wacz-Or-Calcium-Mins (Daily Mul tiple For Women) 18 mg [...] Range Facility Office Visiton 03-11-2025 Follow-up visit [id number] Danae Ko 1945 F Date Provider Department Center 03/11/2025 BRITTNEY MCKEON [facility] No family history on file Level of Service:30951 MO OFFICE/OUTPATIENT NEW LOW [facility] 30 MINUTES (GC) Reason for Visit and Comments: Pain [136] Normal [facility] No Panel Informationon 12-29 LAUREN Tao 12/29/2024 12:00 PM S Inj/Asp: R thumb CMC on 12/29/2024 11:50 AM Indications: pain and joint swelling Details: 21 G needle, dorsal approach Medications: 20 mg methylPREDNISolone acetate 40 MG/ML; 0.5 mL bupivacaine 0.5 % Outcome: tolerated well, no immediate complications Consent was given by the patient. Patient was prepped and draped in the usual sterile fashion. [facility] e LAUREN Tao 12/29/2024 12:00 PM L [...] and draped in the usual sterile fashion. [facility]el[facility] XR Finger - right 2 [facility] 12-29-2024 Imaging Result: AP, lateral and oblique right thumb: No acute fracture or dislocation Advanced degenerative changes at CMC joint right thumb, subchondral sclerosis, bony erosion and enthesophyte's Mild to moderate wrist arthritic changes at DRUJ. Impression: Severe CMC arthritis right thumb. Xanitoscar e Radiology Study observation (narrative) [facility] [employer] XR Knee - left 1 or 2 [...] with advanced patella femoral arthritis left knee picsell e Radiology Study observation (narrative) [facility] [employer] No Panel Informationon 12-25 LAUREN Tao 12/25/2024 [...] and draped in the usual sterile fashion. [employer] XR Hand - left 3 [facility] Imaging Result: 3 view left hand: No acute fracture or dislocation Bone on bone articulation CMC joint of thumb No effusion No soft tissue swelling Minimal wrist arthritis Impression- severe cmc arthritis left thumb joint. Xanitoscar e Radiology Study observation (narrative) [facility] [employer] Estimated glomerular filtrat ion rate (GFR) non- Americanon 10-01-2024 GFR/1.73 sq M.predicted among non-blacks MDRD (S/P/Bld) [Vol rate/Area] Estimated glomerular filtration rate (GFR) non- Low >=60 mL/min/1.73m 2 [facility] Laboratory - Chemistry and C hemistry - challengeon 10-01-2024 Calcium [Mass/Vol] 9.5 mg/dL 8.5-10.1 [facility] Chloride [Moles/Vol] 106 mmol/L 98-107 [facility] CO2 [Moles/Vol] 28.3 mmol/L 21.0-32.0 [facility] Creatinine [Mass/Vol] 1.03 mg/dL High 0.55-1.02 [facility] GFR/1.73 sq M.predicted MDRD (S/P/Bld) [Vol rate/Area] mL/min/{1.73_m2} >=60 mL/min/1.73m 2 [facility] Glucose [Mass/Vol] 87 mg/dL 74-106 [facility] Potassium [Moles/Vol] 3.7 mmol/L 3.5-5.1 [facility] Sodium [Moles/Vol] 143 mmol/L 136-145 [facility] Urea nitrogen [Mass/Vol] 22.0 mg/dL High 7.0-18.0 [facility] Urea nitrogen/Creatinine [Mass ratio] 21.4 mg/mg [facility] No Panel Informationon 10-01 25-Hydroxy Vitamin D Total 79.8 ng/mL [facility] Comment on above: <20 ng/mL Vit D defi cient20-<30 ng/mL Vit D [id number] ng/mL Vit D sufficient>100 ng/mL Potential Toxicity Serum or plasma anion gap de terminationon 10-01-2024 Anion gap [Moles/Vol] Serum or plasma anion gap determination [facility] CT PELVIS WO CONTRASTon 06-12 CT [...] Quyen Ruffin MD 06/28/24 Final result Normal [facility] CT Pelvis WO contraston - Fusion at the right SI joint. No osseous fusion at this time. [facility] RIS CONSOLIDATED EXAMINATION: CT OF THE PELVIS [...] joint. No osseous fusion at this time. [employer] CT Pelvis WO contrastOrdered By: Quyen Ruffin on 06-28-2024 [employer] Work Phone: CT Pelvis WO contraston 06-12 Radiology Study observation (narrative) [employer] FLUORO FOR SURGICAL PROCEDUR ESon 06-09-2024 FLUORO FOR SURGICAL PROCEDURES Radiology exam is complete. No Radiologist dictation. Please follow up with ordering provider. Final result Normal [facility] EKG 12 LeadOrdered By: Carter Machuca on 06-03-2024 Atrial Rate 87 BPM [employer] Work Phone: P [employer] 32 degrees [employer] Work Phone: P-R Interval 136 ms [employer] Work Phone: Q-T Interval 350 ms [employer] Work Phone: QRS Duration 74 ms [employer] Work Phone: QTc Calculation (Bazett) 421 ms [employer] Work Phone: R [employer] 12 degrees Dibsie Phone: T [employer] 45 degrees [employer] Work Phone: Ventricular Rate 87 BPM [place] [employer] Work Phone: [employer] Work Phone: EKG 12 Leadon 06-03-2024 Normal sinus rhythm Normal ECG No previous ECGs available [facility] STCarter Jose, - 06/03/2024 Normal sinus rhythm Normal ECG No previous ECGs available [employer] CBC with Auto Differentialon 10-22-2024 Basophils (Bld) [#/Vol] 0.06 10*3/uL [facility] Basophils/100 WBC (Bld) 1 % 0 - 2 % [facility] Eosinophils (Bld) [#/Vol] 0.09 10*3/uL [facility] Eosinophils/100 WBC (Bld) 1 % 1 - 4 % [facility] Erythrocyte distribution width (RBC) [Ratio] 12.5 % 11.8 - 14.4 % [facility] Hematocrit (Bld) [Volume fraction] 41.5 % 36.3 - 47.1 % [facility] Hemoglobin (Bld) [Mass/Vol] 13.2 g/dL 11.9 - 15.1 g/dL [facility] Immature granulocytes (Bld) [#/Vol] 0.05 10*3/uL [facility] Immature granulocytes/100 WBC (Bld) 1 % High 0 [facility] Interpretation and review of laboratory results Abnormal [facility] Lymphocytes/100 WBC (Bld) 20 % Low 24 - 43 % [facility] Lymphocytes/100 WBC (Bld) 1.62 % [facility] MCH (RBC) [Entitic mass] 31.1 pg 25.2 - 33.5 pg [facility] MCHC (RBC) [Mass/Vol] 31.8 g/dL 28.4 - 34.8 g/dL [facility] MCV (RBC) [Entitic vol] 97.6 fL 82.6 - 102.9 fL [facility] Monocytes/100 WBC (Bld) 10 % 3 - 12 % [facility] Monocytes/100 WBC (Bld) 0.80 % [facility] Neutrophils/100 WBC (Bld) 67 % High 36 - 65 % [facility] Nucleated RBC/100 WBC (Bld) [Ratio] 0.0 % 0.0 per 100 WBC [facility] Platelet mean volume (Bld) [Entitic vol] 10.0 fL 8.1 - 13.5 fL [facility] Platelets (Bld) [#/Vol] 247 10*3/uL [facility] RBC (Bld) [#/Vol] 4.25 10*6/uL 3.95 - 5.1 1 m/uL [facility] Segmented neutrophils/100 WBC (Bld) 5.57 % [facility] WBC other (Bld) [#/Vol] 8.2 [facility] CBC with Diffon 06-02-2024 Abs. Basophil 0.06 k/uL Normal 0.00-0.20 [facility] Comment on above: Performed By: #### C DP #### [facility] [employer] [address] [place] [address] Prosthetic Technician: Arpit Cruz MD Abs.Imm.Granulocyte 0.05 k/uL Normal 0.00-0.30 [facility] Comment on above: Performed By: #### C DP #### [address] [address] Prosthetic Technician: Arpit Cruz MD Abs.Neutrophil (Seg) 5.57 k/uL Normal 1.50-8.10 [facility] Comment on above: Performed By: #### C DP #### [facility] [employer] [address] [place] [address] Prosthetic Technician: Arpit Cruz MD Basophils/100 WBC (Bld) 1 % Normal 0-2 [facility] Comment on above: Performed By: #### C DP #### [address] [address] Prosthetic Technician: Arpit Cruz MD Eosinophils (Bld) [#/Vol] 0.09 10*3/uL Normal 0.00-0.44 [facility] Comment on above: Performed By: #### C DP #### [facility] [employer] [address] [place] [address] Prosthetic Technician: Arpit Cruz MD Eosinophils/100 WBC (Bld) 1 % Normal 1-4 [facility] Comment on above: Performed By: #### C DP #### [address] [address] Prosthetic Technician: Arpit Cruz MD Erythrocyte distribution width (RBC) [Ratio] 12.5 % Normal 11.8-14.4 [facility] Comment on above: Performed By: #### C DP #### [address] [address] Prosthetic Technician: Arpit Cruz MD Hematocrit (Bld) [Volume fraction] 41.5 % Normal 36.3-47.1 [facility] Comment on above: Performed By: #### C DP #### [address] [address] Prosthetic Technician: Arpit Cruz MD Hemoglobin (Bld) [Mass/Vol] 13.2 g/dL Normal 11.9-15.1 [facility] Comment on above: Performed By: #### C DP #### [address] [address] Prosthetic Technician: Arpit Cruz MD Immature granulocytes/100 WBC (Bld) 1 % High 0 [facility] Comment on above: Performed By: #### C DP #### [address] [address] Prosthetic Technician: Arpit Cruz MD Lymphocytes (Bld) [#/Vol] 1.62 10*3/uL Normal 1.10-3.70 [facility] Comment on above: Performed By: #### C DP #### [address] [address] Prosthetic Technician: Arpit Cruz MD Lymphocytes/100 WBC (Bld) 20 % Low 24-43 [facility] Comment on above: Performed By: #### C DP #### [address] [address] Prosthetic Technician: Arpit Cruz MD MCH (RBC) [Entitic mass] 31.1 pg Normal 25.2-33.5 [facility] Comment on above: Performed By: #### C DP #### [address] [address] Prosthetic Technician: Arpit Cruz MD MCHC (RBC) [Mass/Vol] 31.8 g/dL Normal 28.4-34.8 [facility] Comment on above: Performed By: #### C DP #### [address] [address] Prosthetic Technician: Arpit Cruz MD MCV (RBC) [Entitic vol] 97.6 fL Normal 82.6-102.9 [facility] Comment on above: Performed By: #### C DP #### [address] [address] Prosthetic Technician: Arpit Cruz MD Monocytes (Bld) [#/Vol] 0.80 10*3/uL Normal 0.10-1.20 [facility] Comment on above: Performed By: #### C DP #### [address] [address] Prosthetic Technician: Arpit Cruz MD Monocytes/100 WBC (Bld) 10 % Normal 3-12 [facility] Comment on above: Performed By: #### C DP #### [address] [address] Prosthetic Technician: Arpit Cruz MD Neutrophil (Seg) 67 % High 36-65 [facility] Comment on above: Performed By: #### C DP #### [address] [address] Prosthetic Technician: Arpit Cruz MD NRBC Automated 0.0 per 100 WBC Normal 0.0 [facility] Comment on above: Performed By: #### C DP #### [address] [address] Prosthetic Technician: Arpit Cruz MD Platelet mean volume (Bld) [Entitic vol] 10.0 fL Normal 8.1-13.5 [facility] Comment on above: Performed By: #### C DP #### [facility] [address] [place] [address] Prosthetic Technician: Arpit Cruz MD Platelets (Bld) [#/Vol] 247 10*3/uL Normal 138-453 [facility] Comment on above: Performed By: #### C DP #### [facility] [address] [place] [address] Prosthetic Technician: Arpit Cruz MD RBC (Bld) [#/Vol] 4.25 10*6/uL Normal 3.95-5.11 [facility] Comment on above: Performed By: #### C DP #### [facility] [address] [place] [address] Prosthetic Technician: Arpit Cruz MD WBC (Bld) [#/Vol] 8.2 10*3/uL Normal 3.5-11.3 [facility] Comment on above: Performed By: #### C DP #### [facility] [address] [place] [address] Prosthetic Technician: Arpit Cruz MD XR Knee - left 3 [facility] Result: April 15, 2024 x-rays AP weight-bearing bilateral knees lateral and sunrise of the left knee demonstrate medial compartment narrowing bilateral knees left slightly more advanced than the right. Subchondral sclerosis is noted. Subchondral sclerosis is noted in the patellofemoral joint. No fractures detected. Impression: Osteoarthritis bilateral knees Echo Velazquez D.O. [facility] [employer] XR Knee - left 3 ViewsOrdere d By: Cullen Velazquez on 04-16-2024 [employer] Work Phone: No Panel Informationon 04-15 Romelia Mcclain NP 04/17/2024 6:43 AM L Inj/Asp: L knee on 04/15/2024 11:43 AM Indications: pain Details: 20 G needle, anterolateral approach Medications: 40 mg methylPREDNISolone acetate 40 MG/ML Procedure, treatment alternatives, risks and benefits explained, specific risks discussed. Consent was given by the patient. [employer] XR Knee - left 3 [facility] Radiology Study observation (narrative) [facility] Pathology Request for Lab Co rpon 03-20-2024 Pathology Request for Lab Dorothy Normal [facility] Comment on above: Order Comment: PATHO LOGY GI SPECIMEN Result Comment: See report. Scanned copy available in EMR. PERFORMED BY: [place] [address] PATHOLOGIST ERRAND RUNNER HELENE LEON M.D. Performed By: #### P ATH TO [facility] #### [address] Guevara 10-02-2023 L Specimen: [id number] Received: 10/02/23 Status: OJ Suresh Num: [id number] Spec Type: Surgical Subm Dr: Sunny Torres MD Tissues: A GASTRIC FOR HP (GASTRIC BX R/O H.PYLORI) B Colon Biopsy (RANDOM COLON BX R/O MICROSCO) Procedures: HE/4, Gross/Micro L4/2, H PYLORI Age/ Patient Sex Location Account Attending Physician Arianne Ko 78/F [id number] Sunny Torres MD SPEC NUM: [id number] RECD: 10/02/23 STATUS: OJ SURESH NUM: [id number] TEO: 10/02/[address]: Sunny Torres MD ENTERED: 10/02/[address] [facility] DR: SPEC TYPE: Surgical [...] date of and random colon ---- Specimen: [id number] Received: 10/02/23 Status: OJ Suresh Num: [id number] Spec Type: Surgical Subm Dr: Sunny Torres MD Tissues: A GASTRIC FOR HP (GASTRIC BX R/O H.PYLORI) B Colon Biopsy (RANDOM COLON BX R/O MICROSCO) Procedures: HE/4, Gross/Micro L4/2, H PYLORI ---- Patient: KoArianne pollack [id number] (Continued) ---- Specimen: [id number] Received: 10/02/23 (Continued) Gross Description (Continued) Signed (signature on file) Patito Grimm MD 10/03/23 1430 ---- Specimen: [id number] Received: 10/02/23 Status: OJ Suresh Num: [id number] Spec Type: Surgical Subm Dr: Sunny Torres MD Tissues: A GASTRIC FOR HP (GASTRIC BX R/O H.PYLORI) B Colon Biopsy (RANDOM COLON BX R/O MICROSCO) Procedures: HE/4, Gross/Micro L4/2, H PYLORI ---- Patient: KoDanae pollacke [id number] (Continued) ---- Specimen: [id number] Received: 10/02/23 (Continued) Gross Description (Continued) biopsy are 2 galvan translucent soft tissue fragments, 0.3 and 0.6 cm in greatest dimensions. Entirely submitted in one cassette labeled B1. CPT Codes [id number] ---- ---- Specimen: [id number] Received: 10/02/23 Status: OJ Suresh Num: [id number] Spec Type: Surgical Subm Dr: Sunny Torres MD Tissues: A GASTRIC FOR HP (GASTRIC BX R/O H.PYLORI) B Colon Biopsy (RANDOM COLON BX R/O MICROSCO) Procedures: HE/4, Gross/Micro L4/2, H PYLORI ---- Patient: Arianne Ko [id number] (Continued) ---- Signed (signature on file) Patito Grimm MD 10/03/23 1430 Normal [facility] CALCIUMon 10-03-2022 Calcium [Mass/Vol] 8.9 mg/dL Normal 8.5-10.1 [facility] Comment on above: Performed By: #### VALERIO MADRIGAL #### [facility] [address] [place] [address] Dr. Dang Grimm CREATININEon 10-03-2022 Creatinine [Mass/Vol] 1.03 mg/dL Critically high 0.55-1.02 [facility] Comment on above: Performed By: #### VALERIO MADRIGAL #### [facility] [address] [place] [address] Dr. Dang Grimm EGFR-AF MALTESE >60 Normal >=60 [facility] Comment on above: Performed By: #### Bhumika ADAMS, VALERIO #### [facility] [address] [place] [address] Dr. Dang Grimm EGFR-NON AF MALTESE 52 mL/min/1.73m2 Critically low >=60 [facility] Comment on above: Performed By: #### Bhumika ADAMS, VALERIO #### [facility] [address] [place] [address] Dr. Dang Grimm [facility]on SARS-CoV-2 (COVID-19) RNA GENARO+probe Ql (Unsp spec) Not detected Normal NOT DETECTED [facility] Comment on above: Result Comment: This test is not yet approved or cleared by the [place] FDA. When there are no FDA-approved or cleared tests available, and other criteria are met, FDA can make tests available under an emergency access mechanism called an Emergency Use Authorization (EUA). The EUA for this test is supported by the Fish Receiver of Health and Human Service's (HHS's) declaration [...] consistent with SARS-CoV-2. Performed By: #### C [facility] #### [facility] [address] [address] [address] Dang Grimm ANAon 04-20-2022 OCTAVIA PATTERN SPECKLED Normal [facility] Comment on above: Result [...] 1 0196 #### [facility] [address] OCTAVIA SCREEN 1:40 Normal <1:40,1:40 [facility] Comment on above: Result Comment: Test performed using MEL[employer] IFA OCTAVIA Hep-2 Test, a pre-standardized assay designed for the qualitative and semi-quantitative detection of antinuclear antibodies. Performed By: #### 1 0196 #### [facility] [address] C REACTIVE PROTEINon 022 CRP [Mass/Vol] 2.5 mg/L Normal 0.0-7.0 [facility] Comment on above: Performed By: #### 6 1405, [address] #### [facility] [address] CBC COMPLETE BLOOD COUNTon 0 04-20-2022 Erythrocyte distribution width (RBC) [Ratio] 12.4 % Normal 11.5-15.0 [facility] Comment on above: Performed By: #### 5 6506, 62934 #### [facility] [address] [place] [address], [facility] Hematocrit (Bld) [Volume fraction] 41.6 % Normal 36.0-45.0 [facility] Comment on above: Performed By: #### 5 6506, 36455 #### [facility] [address] [place] [address], [facility] Hemoglobin (Bld) [Mass/Vol] 13.7 g/dL Normal 12.0-15.0 [facility] Comment on above: Performed By: #### 5 650, 94972 #### [facility] [address] [place] [address], [facility] MCH (RBC) [Entitic mass] 31.4 pg Normal 27.0-33.0 [facility] Comment on above: Performed By: #### 5 650, 23563 #### [facility] [address] MCHC (RBC) [Mass/Vol] 32.9 g/dL Normal 32.0-35.0 [facility] Comment on above: Performed By: #### 5 6506, 27278 #### [facility] [address] [place] [address], [facility] MCV (RBC) [Entitic vol] 95.2 fL Normal 82.0-98.0 [facility] Comment on above: Performed By: #### 5 6506, 46651 #### [facility] [address] [place] [address], [facility] Nucleated RBC/100 WBC (Bld) [Ratio] 0 % Normal 0-0 [facility] Comment on above: Performed By: #### 5 6506, 94935 #### [facility] [address] [place] [address], [facility] PLAT CNT 248 10*3/uL Normal 150-400 [facility] Comment on above: Performed By: #### 5 6506, [address]853 #### [address] [address], [facility] RBC (Bld) [#/Vol] 4.37 10*6/uL Normal 3.80-5.00 [facility] Comment on above: Performed By: #### 5 6506, [address] #### [place] [address], [facility] WBC (Bld) [#/Vol] 5.54 10*3/uL Normal 4.00-10.60 [facility] Comment on above: Performed By: #### 5 6506, [address]5579 #### [id number] [place] [address] [facility] CERVICAL SPINE 4 OR 5 VIEWS [facility] Department of Radiology [address] [place] [address] [id number] ======== Patient Name: ARIANNE KO : 1945 Sex: F Age: Race: White Pt. Location: [facility] Patient Status: O Ordered Date: 04/20/2022 10:50:00 AM Completed Date: 04/20/2022 11:42 AM Requesting Provider: MICHAEL HAHN Attending Provider: ARIADNA NOLAN Report Copy To: Signs & Symptoms: M54.2 Cervicalgia I10 History: [place] Comments: Views (X-RAY, CERVICAL SPINE): AP, Lateral, [...] C3 Electronically signed: Christian Upton. Transcribed by: [email or web address], User Resident: Electronically Signed by: CHRISTIAN UPTON @ 04/20/2022 02:33 PM Normal [facility] Comment on above: Order Comment: Views (X-RAY, CERVICAL SPINE): AP, Lateral, Odontoid, Flexion, Extension COMP METABOLIC PANELon 04-20 Albumin [Mass/Vol] 4.1 g/dL Normal 3.5-5.7 [facility] Comment on above: Performed By: #### 3 5515, 94103, 80709 #### [facility] [address] [place] [address], [facility] ALKALINE PHOSPH 63 IU/L Normal 34-104 [facility] Comment on above: Performed By: #### 3 5515, 91898, 19883 #### [facility] [address] [place] [address], [place] ALT [Catalytic activity/Vol] 15 U/L Normal 7-52 [facility] Comment on above: Performed By: #### 3 5515, 47005, 74049 #### [facility] [address] [place] [address], [place] AST [Catalytic activity/Vol] 22 U/L Normal 13-39 [facility] Comment on above: Performed By: #### 3 5515, 04406, 92651 #### [facility] [address] [place] [address], [place] Bilirubin [Mass/Vol] 0.5 mg/dL Normal 0.3-1.0 [facility] Comment on above: Performed By: #### 3 5515, 48853, 42716 #### [facility] [address] [place] [address], [place] Calcium [Mass/Vol] 10.2 mg/dL Normal 8.6-10.3 [facility] Comment on above: Performed By: #### 3 5515, 00920, 63932 #### [facility] [address] [place] [address], [place] Chloride [Moles/Vol] 105 mmol/L Normal 98-107 [facility] Comment on above: Performed By: #### 3 5515, 53294, 79989 #### [facility] [address] [place] [address], [place] CO2 [Moles/Vol] 25 mmol/L Normal 21-31 [facility] Comment on above: Performed By: #### 3 5515, 19912, 07554 #### [facility] [address] [place] [address], [place] Creatinine [Mass/Vol] 0.95 mg/dL Normal 0.60-1.20 [facility] Comment on above: Performed By: #### 3 5515, 83822, 94372 #### [facility] [address] [place] [address], [place] GFR/1.73 sq M.predicted among non-blacks MDRD (S/P/Bld) [Vol rate/Area] mL/min/{1.73_m2} Normal >60 [facility] Comment on above: Result Comment: [facility]'s estimated glomerular filtration rate (eGFR) will no [...] of individuals. Performed By: #### 3 5515, 74785, 89335 #### [facility] [address] [place] [address], [place] Glucose [Mass/Vol] 88 mg/dL Normal 70-[address] [facility] Comment on above: Performed By: #### 3 5515, 52927, 79678 #### [facility] [address] [place] [address], [place] Potassium [Moles/Vol] 4.5 mmol/L Normal 3.5-5.1 [facility] Comment on above: Performed By: #### 3 5515, 07687, 97625 #### [facility] [address] [place] [address], [place] Protein [Mass/Vol] 6.8 g/dL Normal 6.0-8.[address] [facility] Comment on above: Performed By: #### 3 5515, 98155, 09799 #### [facility] [address] [place] [address], [place] Sodium [Moles/Vol] 138 mmol/L Normal 136-[address] [facility] Comment on above: Performed By: #### 3 5515, 20665, 89132 #### [facility] [address] [place] [address], [place] Urea nitrogen [Mass/Vol] 29 mg/dL High 7-25 [facility] Comment on above: Performed By: #### 3 5515, 68969, 89056 #### [facility] [address] CYCLIC [place]INATED PEPTIDE [place] [id number] 04-20-2022 CYCLIC CIT PEP 2 Units Normal 0-19 [facility] Comment on above: Result Comment: INTE [...] be monitored and testing repeated. Performed By: Food [employer] [address] [place] [id number] Preboarder: Brett Tamez MD, PhD FERRITINon 04-20-2022 Ferritin [Mass/Vol] 43 ng/mL Normal 11-307 [facility] Comment on above: Performed By: #### 3 5515, 33361, 49875 #### [facility] [address] [place], [place] [id number] [place] [address] HAND LEFT 3 VWSon 04-20-2022 HAND LEFT 3 VWS [facility] Department of Radiology [address] [place] [address] ======== Patient Name: ARIANNE KO : 1945 Sex: F Age: Race: White Pt. Location: [facility] Patient Status: O Ordered Date: 04/20/2022 10:50:00 AM Completed Date: 04/20/2022 11:42 AM Requesting Provider: MICHAEL HAHN Attending Provider: ARIADNA NOLAN Report Copy To: Signs & Symptoms: M79.641 Pain in right hand I10 History: [place] Comments: Evaluate Exam: HAND LEFT 3 VWS [...] report. Electronically signed: Chelita Lazcano. Transcribed by: [email or web address], User Resident: NIRMALA MONGE Electronically Signed by: CHELITA LAZCANO @ 04/20/2022 01:29 PM I personally read this/these film(s) with this resident Normal [facility] Comment on above: Order Comment: Evalu ate HAND RIGHT 3 VWSon 2 HAND RIGHT 3 S [facility] Department of Radiology [address] [place] [address] ======== Patient Name: ARIANNE KO : 1945 Sex: F Age: Race: White Pt. Location: [facility] Patient Status: O Ordered Date: 04/20/2022 [...] report. Electronically signed: Chelita Lazcano. Transcribed by: [email or web address], User Resident: NIRMALA MONGE Electronically Signed by: CHELITA LAZCANO @ 04/20/2022 01:43 PM I personally read this/these film(s) with this resident Normal [facility] Comment on above: Order Comment: Evalu ate RHEUMATOID FACTOR SERUMon RA <20 Normal 0-20 [facility] Comment on above: Performed By: #### 6 1405, 70297 #### [facility] [address] SEDIMENTATION RATEon 022 SED RATE 38 mm/hr High 0-20 [facility] Comment on above: Performed By: #### 5 6506, 23466 ####[facility] TIBC- INCLUDES IRONon 2021 FE SATURATION 30 % Normal 20-50 [facility] Comment on above: Performed By: #### 3 5515, 96426, 95128 #### [facility] [address] [place] [address], [facility] Iron [Mass/Vol] 115 ug/dL Normal 50-212 [facility] Comment on above: Performed By: #### 3 5515, 07341, 65094 #### [facility] [address] [place] [address], [facility] TIBC 378 mcg/dL Normal 250-450 [facility] Comment on above: Performed By: #### 3 5515, 28196, 26751 #### [facility] [address] [place] [address], [facility] UIBC 263 mcg/dL Normal 155-355 [facility] Comment on above: Performed By: #### 3 5515, 76019, 10384 #### [facility] [address] [place] [id number], [facility] CALCIUMon 04-09-2022 Calcium [Mass/Vol] 9.6 mg/dL Normal 8.5-10.1 [facility] Comment on above: Performed By: #### VALERIO MADRIGAL #### [facility] [address] [place] [address] Dr. Dang Grimm CREATININEon 04-09-2022 Creatinine [Mass/Vol] 1.07 mg/dL Critically high 0.55-1.02 [facility] Comment on above: Performed By: #### VALERIO MADRIGAL #### [facility] [address] [place] [address] Dr. Dang Grimm EGFR-AF MALTESE >60 Normal >=60 [facility] Comment on above: Performed By: #### VALERIO MADRIGAL #### [facility] [address] [place] [address] Dr. Dang Grimm EGFR-NON AF MALTESE 50 mL/min/1.73m2 Critically low >=60 [facility] Comment on above: Performed By: #### VALERIO MADRIGAL #### [facility] [address] [place] [address] Dr. Dang Grimm Vital Signs Date Time Vital Sign Value Performing Clinician Facility 03-19-2025 13:32-0400 Body height 154.94 cm Viky Stanford MD Work Phone: [facility] 03-19-2025 13:32-0400 Body mass index (BMI) [Ratio] 25.4 kg/m2 Viky Stanford MD Work Phone: [facility] 03-19-2025 13:32-040 Body weight 60.95 kg Viky Stanford MD Work Phone: [facility] 03-19-2025 13:32-0400 Diastolic blood pressure 76 mm[Hg] Viky Stanford MD Work Phone: [facility] 03-19-2025 13:32-0400 Heart rate 89 /min Viky Stanford MD Work Phone: [facility] 03-19-2025 13:32-0400 Systolic blood pressure 119 mm[Hg] Viky Stanford MD Work Phone: [facility] 11-30-2024 14:19-0400 Body height 154.94 cm [facility] 11-30-2024 14:19-0400 Body mass index (BMI) [Ratio] 25.4 kg/m2 [facility] 11-30-2024 14:19-0400 Body weight 61.23 kg [facility] 11-30-2024 14:19-0400 Diastolic blood pressure 64 mm[Hg] [facility] 11-30-2024 14:19-0400 Heart rate 78 /min [facility] 11-30-2024 14:19-0400 Systolic blood pressure 108 mm[Hg] [facility] 10-16-2024 13:33-0500 Body height 154.94 cm [facility] 10-16-2024 13:33-0500 Body mass index (BMI) [Ratio] 23.6 kg/m2 [facility] 10-16-2024 13:33-0500 Body weight 56.7 kg [facility] 09-14-2024 10:49-0500 Body height 154.94 cm [facility] 09-14-2024 10:49-0500 Body mass index (BMI) [Ratio] 23.6 kg/m2 [facility] 09-14-2024 10:49-0500 Body weight 56.7 kg [facility] 08-03-2024 09:59-0500 Body height 154.94 cm [facility] 08-03-2024 09:59-0500 Body mass index (BMI) [Ratio] 23.6 kg/m2 [facility] 08-03-2024 09:59-0500 Body weight 56.69 kg [facility] 08-03-2024 09:59-0500 Diastolic blood pressure 68 mm[Hg] [facility] 08-03-2024 09:59-0500 Heart rate 79 /min [facility] 08-03-2024 09:59-0500 Systolic blood pressure 118 mm[Hg] [facility] 06-02-2024 14:33-0400 Body height 154.9 cm [facility] [employer] 06-02-2024 14:33-0400 Body mass index (BMI) [Ratio] 24 kg/m2 [facility] [employer] 06-02-2024 14:33-0400 Body weight 57.61 kg [facility] [employer] 06-02-2024 14:33-0400 Diastolic blood pressure 63 mm[Hg] [facility] [employer] [facility] [employer] 06-02-2024 14:33-0400 Heart rate 96 /min [facility] [employer] 06-02-2024 14:33-0400 Respiratory rate 16 /min [facility] [employer] [facility] [employer] 06-02-2024 14:33-0400 SaO2% (BldA) [Mass fraction] 97 % [facility] [employer] 06-02-2024 14:33-0400 Systolic blood pressure 132 mm[Hg] [facility] [employer] [facility] [employer] 03-20-2024 09:15-0400 Diastolic blood pressure 62 mm[Hg] MD Viky Stanford Work Phone: [facility] 03-20-2024 09:15-0400 Heart rate 72 /min MD Viky Stanford Work Phone: [facility] 03-20-2024 09:15-0400 Respiratory rate 20 /min MD Viky Stanford Work Phone: [facility] 03-20-2024 09:15-0400 SaO2% (BldA) [Mass fraction] 99 % MD Viky Stanford Work Phone: [facility] 03-20-2024 09:15-0400 Systolic blood pressure 115 mm[Hg] MD Viky Stanford Work Phone: [facility] 03-20-2024 07:18-0400 Body height 156.84 cm MD Viky Stanford Work Phone: [facility] 03-20-2024 07:18-0400 Body weight 55.33 kg MD Viky Stanford Work Phone: [facility] 03-16-2024 09:04-0400 Body height 156.84 cm MD Viky Stanford Work Phone: [facility] 03-16-2024 09:04-0400 Body mass index (BMI) [Ratio] 22.8 kg/m2 MD Viky Stanford Work Phone: [facility] 03-16-2024 09:04-0400 Body weight 56.24 kg MD Viky Stanford Work Phone: [facility] 03-16-2024 09:04-0400 Diastolic blood pressure 72 mm[Hg] MD Viky Stanford Work Phone: [facility] 03-16-2024 09:04-0400 Heart rate 81 /min MD Viky Stanford Work Phone: [facility] 03-16-2024 09:04-0400 Systolic blood pressure 122 mm[Hg] MD Viky Stanford Work Phone: [facility] 10-02-2023 09:55-0500 Diastolic blood pressure 67 mm[Hg] MD Viky Stanford Work Phone: [facility] 10-02-2023 09:55-0500 Heart rate 80 /min MD Viky Stanford Work Phone: [facility] 10-02-2023 09:55-0500 Respiratory rate 16 /min MD Viky Stanford Work Phone: [facility] 10-02-2023 09:55-0500 SaO2% (BldA) [Mass fraction] 99 % MD Viky Stanford Work Phone: [facility] 10-02-2023 09:55-0500 Systolic blood pressure 108 mm[Hg] MD Viky Stanford Work Phone: [facility] 10-02-2023 07:07-0500 Body height 160.02 cm MD Viky Stanford Work Phone: [facility] 10-02-2023 07:07-0500 Body weight 56.69 kg MD Viky Stanford Work Phone: [facility] 08-30-2023 10:30-0500 Body height 157.48 cm Viky Stanford Other [facility] 08-30-2023 10:30-0500 Body mass index (BMI) [Ratio] 21.73 kg/m2 Viky Stanford Other [facility] [employer] Other 08-30-2023 10:30-0500 Body weight 53.89 kg Viky Stanofrd Other [facility] Other 08-30-2023 10:30-0500 Body weight 53.88 kg MD Viky Stanford Work Phone: [facility] 08-30-2023 10:30-0500 Diastolic blood pressure 74 mm[Hg] Viky Stanford Other [facility] 08-30-2023 10:30-0500 Systolic blood pressure 122 mm[Hg] Viky Stanford Other [facility] 08-21-2023 13:45-0500 Body height 157.48 cm Imad Asaad Other [facility] 08-21-2023 13:45-0500 Body mass index (BMI) [Ratio] 21.58 kg/m2 Imad Asaad Other [facility] Other 08-21-2023 13:45-0500 Body weight 53.52 kg Imad Asaad Other [facility] 07-15-2023 11:30-0500 Body height 157.48 cm Viky Stanford Other [facility] 07-15-2023 11:30-0500 Body mass index (BMI) [Ratio] 21.73 kg/m2 Viky Stanford Other [facility] Other 07-15-2023 11:30-0500 Body weight 53.89 kg Viky Stanford Other [facility] Other 07-15-2023 11:30-0500 Body weight 53.88 kg MD Viky Stanford Work Phone: [facility] 07-15-2023 11:30-0500 Diastolic blood pressure 78 mm[Hg] Viky Stanford Other [facility] 07-15-2023 11:30-0500 Systolic blood pressure 148 mm[Hg] Viky Stanford Other [facility] 07-06-2023 09:20-0500 Body height 157.48 cm MD Viky Stanford Work Phone: [facility] 07-06-2023 09:20-0500 Body weight 55.51 kg MD Viky Stanford Work Phone: [facility] Encounters Encounter Date Encounter Type Care Provider Facility Start: 03-19-2025 End: 03-19-2025 ambulatory Viky Stanford MD Work Phone: [facility] Work Phone: Start: 03-19-2025 End: 03-19-2025 Patient encounter procedure Viky Stanford MD [facility] Work Phone: Start: 03-15-2025 End: 03-15-2025 Telephone encounter Razia AGUILAR Work Phone: [facility] Comment on above: injection Start: 03-11-2025 ambulatory [facility] Start: 12-29-2024 End: 12-29-2024 Bamboo flowsheet Razia AGUILAR Work Phone: [facility] Start: 12-29-2024 End: 12-29-2024 Bamboo flowsheet Razia AGUILAR Work Phone: [facility] Start: 12-29-2024 End: 12-29-2024 Office outpatient visit 25 minutes Razia AGUILAR Work Phone: [facility] Comment on above: 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); Pain of right thumb; Acute pain of left knee; Chondromalacia, patella, left Start: 12-29-2024 End: 12-29-2024 ambulatory RAZIA WILSON Not Available Start: 12-25-2024 End: 12-25-2024 Bamboo flowsheet Razia Wilson PA Work Phone: [facility] Start: 12-25-2024 End: 12-25-2024 Bamboo flowsheet Razia Wilson PA Work Phone: [facility] Start: 12-25-2024 End: 12-25-2024 Office outpatient visit 15 minutes Razia AGUILAR Work Phone: [facility] Comment on above: Arthritis of carpome tacarpal (CMC) joint of left thumb (Primary Dx); Pain of left thumb; Left hand pain Start: 12-25-2024 End: 12-25-2024 ambulatory RAZIA WILSON Not Available Start: 11-30-2024 End: 11-30-2024 ambulatory [facility] Work Phone: Start: 11-30-2024 End: 11-30-2024 Patient encounter procedure [facility] Work Phone: Start: 10-16-2024 End: 10-16-2024 ambulatory [facility] Work Phone: Start: 10-16-2024 End: 10-16-2024 Patient encounter procedure [facility] Phys[facility] Work Phone: Start: 10-01-2024 Non-patient / Non-visit [facility] Physician [facility] [employer] Work Phone: Start: 09-14-2024 End: 09-14-2024 Patient encounter procedure [facility] Physician [facility] Work Phone: Start: 08-03-2024 Non-patient / Non-visit [facility] Work Phone: Start: 08-03-2024 End: 08-03-2024 Patient encounter procedure [facility] Work Phone: Start: 08-03-2024 End: 08-03-2024 ambulatory Andrius Bhaktiytautas [facility]ied[facility]itis [facility] Start: 07-27-2024 End: 07-27-2024 ambulatory Andkingaus Bhaktiytcallie Cassidyitis Facility:[facility] Start: 07-06-2024 End: 07-06-2024 ambulatory Andrius Vladislav Ledbettereditis Facility:[facility] Start: 06-26-2024 End: 06-28-2024 ambulatory ECHO Adeola [facility] Start: 06-26-2024 End: 06-28-2024 Subsequent hospital visit by physician Echo Marieenship Work Phone: [facility] CT Scan Comment on above: Sacroiliitis (HCC) Start: 06-09-2024 End: 06-09-2024 ambulatory ECHO Mir [facility] Start: 06-02-2024 End: 06-06-2024 ambulatory ECHO Mir [facility] Start: 06-02-2024 Encounter for other preprocedural examination ECHO [facility] Start: 06-02-2024 End: 06-06-2024 Patient encounter status [facility]aktiz Schedule [facility] Start: 06-02-2024 End: 06-06-2024 Subsequent hospital visit by physician Hoa Dias Pat Schedule HOA Dias Pre-Admit Testing Comment on above: Pre-op testing (Prim edil Dx) Start: 04-29-2024 End: 04-29-2024 Bamboo flowsheet Romelia B Apling [employer] Work Phone: [facility] Start: 04-29-2024 End: 04-29-2024 Bamboo flowsheet Romelia Keith [employer]pling [employer] Work Phone: [facility] Start: 04-29-2024 End: 04-29-2024 Office outpatient visit 10 minutes Romelia Keith [employer] Work Phone: [facility] Comment on above: Left knee pain, unsp ecified chronicity (Primary Dx); Arthritis of left knee Start: 04-29-2024 End: 04-29-2024 ambulatory ROMELIA B APLING Not Available Start: 04-15-2024 End: 04-15-2024 Bamboo flowsheet Romelia Keith [employer]pling [employer] Work Phone: [facility] Start: 04-15-2024 End: 04-15-2024 Bamboo flowsheet Romelia Keith Apling [employer] Work Phone: [facility] Start: 04-15-2024 End: 04-15-2024 Office outpatient visit 25 minutes Romelia Claudioing [employer] Work Phone: [facility] Comment on above: Left knee pain, unsp ecified chronicity (Primary Dx); Arthritis of left knee Start: 04-15-2024 End: 04-15-2024 ambulatory ROMELIA B APLING Not Available Start: 03-20-2024 Non-patient / Non-visit MD Marlys Stanford Work Phone: [facility] Work Phone: Start: 03-20-2024 End: 03-20-2024 Admission to same day surgery center MD Viky Stanford Work Phone: [facility] Work Phone: Start: 03-20-2024 End: 03-20-2024 ambulatory MD Viky Stanford Work Phone: [facility] Work Phone: Start: 03-18-2024 End: 03-18-2024 ambulatory ROMELIA Keith APLING Not Available Start: 03-17-2024 Preoperative state MD Viky bliss Work Phone: [facility] Start: 03-16-2024 End: 03-16-2024 ambulatory ROMELIA Keith APLING Not Available Start: 03-16-2024 End: 03-16-2024 Patient encounter procedure MD Viky Stanford Work Phone: [facility] Physician [facility] Work Phone: Start: 10-14-2023 End: 10-14-2023 ambulatory Ara Maier MD Facility:[facility] Start: 10-04-2023 End: 10-04-2023 ambulatory Imad Asaad Other [employer] Other Start: 10-04-2023 Telephone encounter Imad Asaad [facility] Start: 10-02-2023 Non-patient / Non-visit MD Marlys Stanford Work Phone: [facility] Physician [facility] Work Phone: Start: 10-02-2023 End: 10-02-2023 Admission to same day surgery center MD Viky Stanford Work Phone: [facility] Work Phone: Start: 10-02-2023 End: 10-02-2023 ambulatory MD Viky Stanford Work Phone: [facility] Work Phone: Start: 09-23-2023 End: 09-23-2023 ambulatory Viky Stanford Other [employer] Other Start: 09-23-2023 Telephone encounter Viky REYES [facility] Start: 09-03-2023 End: 09-03-2023 ambulatory Viky Stanford Other [employer] Other Start: 09-03-2023 Telephone encounter Viky Stanford [facility] Start: 08-30-2023 End: 08-30-2023 ambulatory Viky Stanford Other [employer] Other Start: 08-30-2023 Office outpatient vi sit 15 minutes Viky Stanford [facility] Start: 08-30-2023 End: 08-30-2023 Patient encounter procedure MD Viky Stanford Work Phone: [facility]- Start: 08-23-2023 End: 08-23-2023 ambulatory Viky Stanford Other [employer] Other Start: 08-23-2023 Telephone encounter Viky Stanford [facility] Start: 08-21-2023 End: 08-21-2023 ambulatory Imad Asaad Other [employer] Other Start: 08-21-2023 Office outpatient ne w 45 minutes Imad Asaad [facility] Start: 08-21-2023 End: 08-21-2023 Patient encounter procedure MD Viky Stanford Work Phone: [facility] Physician [facility] Work Phone: Start: 07-15-2023 End: 07-15-2023 ambulatory Viky Stanford Other [employer] Other Start: 07-15-2023 Office outpatient vi sit 15 minutes Viky Stanford [facility] Start: 07-15-2023 Telephone encounter Viky Stanford [facility] Start: 07-15-2023 End: 07-15-2023 Patient encounter procedure MD Viky Stanford Work Phone: [facility] Work Phone: Start: 07-06-2023 End: 07-06-2023 Patient encounter procedure MD Viky Stanford Work Phone: [facility] Luis Alfredo Work Phone: [...] preprocedural laboratory examination DR MASSIMO MATTHEWS . [facility] Start: 07-24-2022 End: 07-24-[address] MASSIMO [...] Start: 04-20-2022 End: 04-21-2022 ambulatory ARIADNA NOLAN Facility:[facility] Start: 04-09-2022 End: 04-10-[address] VIKY STANFORD Facility: Start: 02-27-2022 End: 02-28-2022 ambulatory DEFAULT PHYSICIAN Facility:[facility] Start: 02-22-2022 End: 02-23-[address] MASSIMO MATTHEWS . Facility:[facility]1 Start: 12-06-2021 ambulatory MICHELE SALDAÑA . Facility: 1 Start: 11-30-2021 End: 12-01-[address] MASSIMO MATTHEWS . Facility: Start: 10-25-2020 Pre-procedure evalua tion check Viky Stanford Other [employer] Other Procedures Date Procedure Procedure Detail Performing [...] major jt/bursa w/o us Romelia Sagar Aplondina [employer] Work Phone: Start: 04-15-2024 Radiologic examination knee 3 views Danae a B Apling [employer] Work Phone: Start: 03-20-2024 Colonoscopy MD Viky Stanford Work Phone: Start: 10-02-2023 Esophagogastroduodenoscopy MD Viky fox Work Phone: Start: 07-10-2017 Screening mammography Viky Stanford Other Start: 07-19-2016 General examination of patient Vikyverna padilla Other Plan of Treatment Date Care Activity Detail Author Start: 04-23-2032 DTaP/Tdap/Td vaccine (2 - Td or Tdap) DTaP/Tdap/Td vaccine (2 - Td or Tdap) [facility] Start: 04-12-2025 Influenza vaccination Influenza Vaccine (#1) [facility] Start: 12-29-2024 End: 12-29-2024 Patient encounter procedure 12/29/2024 11:15 AM EDT Office Visit [facility] [address] [place] [address] Razia Wilson PA [address] [facility] [address] [place] [address] Arthritis of carpometacarpal (CMC) joint of right thumb (Primary Dx); Pain of right thumb [facility] Comment on above: Arthritis of carpometacarpal (CMC) joint of right thumb (Primary Dx); Pain of right thumb Start: 12-25-2024 End: 12-25-2024 Patient encounter procedure 12/25/2024 8:45 AM EDT Office Visit [facility] [address] [place] [address] Razia Wilson PA [address] [facility] [address] [place] [address] Arthritis of carpometacarpal (CMC) joint of left thumb (Primary Dx); Pain of left thumb [facility] Comment on above: Arthritis of carpometacarpal (CMC) joint of left thumb (Primary Dx); Pain of left thumb Start: 06-09-2024 End: 06-09-2024 Admission to same day surgery center 06/09/2024 7:30 AM EDT - 06/09/2024 9:30 AM EDT Surgery [facility] [place] [address] [place] [address] Echo Ham, DO [address] [place] [address] RIGHT MINIMALLY INVASIVE SURGERY SACROILIAC JOINT FUSION POSTERIOR WITH SI BONE [facility] [place] Comment on above: RIGHT MINIMALLY INVASIVE SURGERY SACROIL IAC JOINT FUSION POSTERIOR WITH SI BONE Start: 06-09-2024 End: 06-09-2024 Anesthesia consultation 06/09/2024 7:30 AM EDT Anesthesia Event [facility] [place] [address] [place] [address] Ricco Foote MD [address] [facility] [address] [place] [address] [facility] [place] Start: 06-09-2024 End: 06-09-2024 Arthrodesis sacroiliac joint percutaneous SACROILIAC JOINT FUSION POSTERIOR Chronic right SI joint pain 06/09/2024 7:30 AM EDT [facility] Start: 06-09-2024 Subsequent hospital visit by physician 06/09/2024 7:30 AM EDT [facility] [place] [address] [place] [address] Echo Ham, DO [address] [place] [address] [facility] [place] Start: 05-27-2024 Annual Wellness Visit (Medicare) Annual Wellness Visit (Medicare) [facility] Start: 04-29-2024 End: 04-29-2024 Patient encounter procedure [facility] Comment on above: Left knee pain, unspecified chronicity ( Primary Dx); Arthritis of left knee Start: 04-15-2024 End: 04-15-2024 Patient encounter procedure 04/15/2024 11:15 AM EDT Office Visit [facility] [address] [place] [id number] Romelia Mcclain NP [address] [place] [address] Left knee pain, unspecified chronicity (Primary Dx) [facility] Comment on above: Left knee pain, unspecified chronicity ( Primary Dx) Start: 04-12-2024 COVID-19 Vaccine ( season) COVID-19 Vaccine ( season) [facility] Start: 04-12-2024 Influenza vaccination Influenza Vaccine (#1) [facility] Start: 03-20-2024 [facility] Start: 10-02-2023 [facility] Start: 2001 Screening for osteoporosis DEXA (modify frequency per FRAX score) [facility] Start: 1964 Hepatitis C screening Hepatitis C screen [facility] Start: 1958 Depression Screen Depression Screen [facility] Patient Education Hemorrhoids (D C) Know your Meds [facility] Work Phone: Immunizations Immunization Date Immunization Notes Care Provider [facility] 04-30-2024 influenza virus vaccine, unspecified formulation Razia Wilson PA Work Phone: [facility] 04-16-2023 influenza virus vaccine, unspecified formulation Romelia Mcclain [employer] Work Phone: [facility] 05-17-2022 zoster vaccine, live Viky Stanford Other [facility] 04-23-2022 influenza virus vaccine, split virus (incl. purified surface antigen) Viky Stanford Other [facility] [employer] Other 04-23-2022 influenza virus vaccine, unspecified formulation MD Viky Stanford Work Phone: [facility] 04-23-2022 pneumococcal polysaccharide vaccine, 23 valent Viky Stanford Other [facility] 04-23-2022 tetanus toxoid, adsorbed Viky Stanford Other [facility] 05-25-2021 influenza virus vaccine, split virus (incl. purified surface antigen) Viky Stanford Other [facility] [employer] Other 05-25-2021 influenza virus vaccine, unspecified formulation MD Viky Stanford Work Phone: [facility] 10-18-2020 COVID-19 Vaccine Moderna - Documentation Purposes Only Viky Stanford Other [facility] 09-19-2020 COVID-19 Vaccine Moderna - Documentation Purposes Only Viky Stanford Other [facility] 04-16-2020 influenza virus vaccine, split virus (incl. purified surface antigen) Viky Stanford Other [facility] [employer] Other 04-16-2020 influenza virus vaccine, unspecified formulation MD Viky Stanford Work Phone: [facility] 05-12-2019 influenza virus vaccine, split virus (incl. purified surface antigen) Viky Stanford Other [facility] [employer] Other 05-12-2019 influenza virus vaccine, unspecified formulation MD Viky Stanford Work Phone: [facility] 04-18-2018 influenza virus vaccine, split virus (incl. purified surface antigen) Viky Stanford Other [facility] [employer] Other 04-18-2018 influenza virus vaccine, unspecified formulation MD Viky Stanford Work Phone: [facility] 07-10-2017 pneumococcal conjuga te vaccine, 13 valent Viky Stanford Other [facility] 04-18-2017 influenza virus vaccine, split virus (incl. purified surface antigen) Viky Stanford Other [facility] [employer] Other 04-18-2017 influenza virus vaccine, unspecified formulation MD Viky Stanford Work Phone: [facility] 05-09-2016 influenza virus vaccine, split virus (incl. purified surface antigen) Viky Stanford Other [employer] Other 05-09-2016 influenza virus vaccine, unspecified formulation MD Viky Stanford Work Phone: [facility] 05-27-2013 tetanus and diphther ia toxoids, adsorbed, preservative free, for adult use (5 Lf of tetanus toxoid and 2 Lf of diphtheria toxoid) Viky Stanford Other [facility] 12-24-2011 pneumococcal polysaccharide vaccine, 23 valent Viky Stanford Other [facility] Payers Date Payer Category Payer Self-pay 2022 Private Health Insurance [employer] Ne mber Subscriber Plan / Payer (Effective 2022-Present) Name: Arianne Ko Relation to Subscriber: Self Name: Arianne Ko Payer ID: Not on file Type: Not on file Address: [place] [id number] 2022 Unknown 2011 Medicare [id number] 1959 Medicare [id number] 1959 Unknown [id number] 1946 Unknown [id number] 2.840.1.587371.3.579.2 .647 1946 Unknown [id number] .16.840.1.710885.3.579.2 .647 1946 Unknown [id number] 2.16.840.1.299437.3.579.2 .593 1946 Unknown [id number] 2.16.840.1.109958.3.579.2 .593 1946 Unknown [id number] 2.16.840.1.323204.3.579.2 .593 1946 Unknown [id number] 2.16.840.1.082410.3.579.2 .593 1946 Unknown [id number] 2.16.840.1.150297.3.579.2 .593 1946 Unknown [id number] 2.16.840.1.100044.3.579.2 .593 1946 Unknown [id number] 2.16.840.1.342612.3.579.2 .593 1946 Unknown [id number] 2.16.840.1.729465.3.579.2 .593 1946 Unknown [id number] 2.16.840.1.229170.3.579.2 .593 1946 Unknown [id number] 2.16.840.1.937661.3.579.2 .593 1946 Unknown [id number] 2.16.840.1.937301.3.579.2 .593 1946 Unknown [id number] 2.16.840.1.349697.3.579.2 .593 1946 Unknown [id number] 2.16.840.1.318414.3.579.2 .593 1946 Unknown [id number] 2.16.840.1.119392.3.579.2 .593 1946 Unknown [id number] 2.16.840.1.819140.3.579.2 .175 1946 Unknown [id number] 2.16.840.1.588383.3.579.2 .175 1946 Unknown [id number] 2.16.840.1.396688.3.579.2 .176 1946 Unknown [id number] 2.16.840.1.066594.3.579.2 .196 1946 Unknown [id number] 2.16.840.1.755331.3.579.2 .196 1946 Unknown [id number] 2.16.840.1.710446.3.579.2 .196 1946 Unknown [id number] 2.16.840.1.524423.3.579.2 .196 1946 Unknown [id number] 2.16.840.1.622617.3.579.2 .1259 1946 Unknown [id number] 2.16.840.1.246418.3.579.2 .1259 1946 Unknown [id number] 2.16.840.1.787313.3.579.2 .1259 1946 Unknown [id number] 2.16.840.1.924381.3.579.2 .1259 1946 Unknown [id number] 2.16.840.1.039454.3.579.2 .1259 1946 Unknown [id number] 2.16.840.1.400045.3.579.2 .1259 1946 Unknown [id number] 2.16.840.1.985905.3.579.2 .1259 1946 Unknown [id number] 2.16.840.1.375468.3.579.2 .1259 1946 Unknown [id number] 2.16.840.1.795730.3.579.2 .125 1946 Unknown [id number] 2.16.840.1.731886.3.579.2 .1259 Medicare Medicare Outpatient [id number] Unknown [id number] 2.16.840.1.453679.3.579.2 .531 Social History Date Type Detail Facility Unknown if ever smoked [employer] Other Start: 06-02-2024 End: 12-29-2024 Sex Assigned At [employer] Other Start: 10-02-2023 End: 03-20-2024 Tobacco smoking status NHIS Never smoked tobacco (finding) [facility] Start: 1945 Sex Assigned At Female F [facility] Start: 12-31-2022 End: 06-02-2024 Tobacco use and exposure Smokeless tobacco non-user [facility] Start: 06-02-2024 End: 12-29-2024 Alcoholic beverage intake Current drinker of alcohol (finding) [facility] Start: 06-02-2024 End: 12-29-2024 History of Social function [facility] Physical abuse Denies [facility] Start: 06-02-2024 Alcohol Comment occasioally only [employer] Start: 1945 Sex assigned at Not on file [facility] Start: 06-07-2024 Gender identity Identifies as female gender (finding) [employer] Start: 12-31-2022 Alcohol Comment 5-6x/year [facility] Start: 10-16-2024 End: 11-30-2024 Sex Female (finding) [facility] Medical Equipment Procedure Code Equipment Code Equipment Origin al Text Equipment Identifier Dates Joint Sacroiliac 11.5x50 Mm [employer] - [id number] Start: 06-09-2024 Joint Sacroiliac 11.5x35 Mm [employer] - [id number] Start: 06-09-2024 Joint Sacroiliac 11.5x35 Mm [employer] - [id number] Start: 06-09-2024 Goals Date Patient Goal Desired Activity /State Clinical Notes 11-30-2021 to 03-15-2025 Telephone Encounter - COREY Zimmer - 03/15/2025 2:40 PM EDTTelephone Encounter - COREY Zimmer - 03/15/2025 2:40 PM EDTTelephone Encounter - Tresa Gallego - 03/15/2025 2:14 PM EDT Note Date & Type Note Facility 03-15-2025 Telephone encounter Note Referral placed and sent. [facility] 03-15-2025 Miscellaneous Notes Referral placed and sent. Patient called in stating Ronald told her about a chicken injection for her LT knee. She is requesting a referral be sent to [facility] for this. Please advise [phone]. documented in this encounter [facility] 03-15-2025 Telephone encounter Note Patient called in stating Ronald told her about a chicken injection for her LT knee. She is requesting a referral be sent to [facility] for this. Please advise [phone]. [facility] 03-11-2025 Note Subjective Chief complaint: Chief Complaint [...] finger: normal A1 erica and AROM Strength: mixer operator raw salt 5/5, thumb 5/5, interossei 5/5 Sensation: intact [...] Castorena MD Orthopedic Surgery Resident, PGY-4 Pager: [phone] 03/11/25 10:10 AM This note was created [...] History reviewed. No pertinent past medical history. [facility] 12-29-2024 History of Present illness Narrative Associated [...] is normal. Strength additional comments: 5/5 EQUAL DATA ENTRY ASSOCIATE STRENGTH Neurovascular Right Right neurovascular exam is [...] requiring urgent evaluation. Visit was preformed using [employer] Co-pilot plant supervisor speech recognition. documented in this encounter [facility] 12-25-2024 History of Present illness Narrative Associated [...] LT HAND TODAY EPIC 12/25/24 XR at [facility] 04/2022 [facility] INJ 03/17/20, 06/19/22, 01/14/23, [...] is normal. Strength additional comments: 5/5 EQUAL DATA ENTRY ASSOCIATE STRENGTH terminal strength limited by pain [facility] [...] requiring urgent evaluation. Visit was preformed using [employer] Co-pilot plant supervisor speech recognition. documented in this encounter [facility] 09-14-2024 Evaluation note Diagnosis Onset Date Resolution Collagenous colitis acute Febru 2024 10:47am Frequent stools acute September 14, 2024 10:47am Irritable bowel syndrome with diarrhea acute September 14, 2024 10:47am Collagenous colitis acute October 16, 2024 1:33pm GERD (gastroesophageal reflux disease) acute October 16, 2024 1:33pm [facility] Work Phone: 1(881) 314-657512-23-2024 Evaluation note* Diagnosis Onset Date Resolution Status [...] x disease) acute October 16, 2024 1:33pm [facility] Work Phone: 1(213) 653-663410-22-2024 Hospital Discharge instructions* Discharge Instructions* Cristopher Escobar RN - 06/02/2024 2:51 PM EDT Preoperative Instructions: Stop eating solid foods at midnight the night prior to your surgery. Stop drinking clear liquids at midnight the night prior to your surgery. Arrive at the surgery center C entrance) on ___[id number] by ____0530- 0600am . Please stop any [...] day of surgery [facility] History of Present illness Narrative* Romelia Mcclain [...] as tolerated, f/U prn [facility] [id number] History of Present illness Narrative* Romelia Mcclain [...] f/u in 2 weeks. documented in this encounterSaint [facility] [id number] [facility] Evaluation note* Encounter Date Diagnosis Assessment [...] try OTC ones in meantime. Referral placed. [employer] Other 01-10-2024 Evaluation note* Encounter Date Diagnosis Assessment Notes Treatment Notes Treatment Clinical Notes Aug, GERD (gastroesophageal reflux disease) (ICD-10 - K21.9) Aug, Chronic diarrhea (ICD-10 - K52.9) Patient reports that her last colonoscopy was at the [facility] about 11 years ago and that she can not remember who preformed the procedure Aug, Abdominal pain (ICD-10 - R10.9) Aug, Weight loss, unintentional (ICD-10 - R63.4) Aug, Change in bowel habits (ICD-10 - R19.4) Patinet is advised to have a colonoscopy ordered, scheduled and prep instructions given today Risks and benefits of procedure explained to patient; patient verbalizes understanding. [employer] Other 12-04-2023 Evaluation note* Encounter Date Diagnosis [...] (ICD-10 - M81.0) Due for Dexa 08/2023 [employer] Other 02-16-2023 NoteCONSULTATION CONSULTATION DATE: 09/27/2022 HISTORY OF PRESENT ILLNESS: This is a 76-year-old female who returns to the clinic status post LES on 09/11/2022. The patient states she was afforded between 50-60% relief. Depending on her physical activity, determines her level of comfort. Activities such as standing, walking, lying, closing manager hours, housework and lifting greatly aggravate [...] Patient is in agreement with this plan.[facility] [id number] NoteCONSULTATION CONSULTATION DATE: 09/04/2022 HISTORY OF PRESENT [...] patient understands and would like to proceed.[facility] [id number] NoteCONSULTATION CONSULTATION DATE: 07/11/2022 HISTORY OF PRESENT [...] followed up in the clinic post procedure.[facility] [id number] NoteCONSULTATION PROCEDURE DATE: 07/11/2022 PREOPERATIVE DIAGNOSIS: Bilateral [...] will be followed up in the clinic.[facility] 06-06-2022 NoteCONSULTATION CONSULTATION DATE: 06/06/2022 [...] pain returning. 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 Joes's point is tender to the right with [...] follow up at her post procedure visit.The [facility] [id number] NoteCONSULTATION CONSULTATION DATE: 02/22/2022 This is a [...] region. The patient has not seen a scenic arts supervisor in the past. REVIEW OF SYSTEMS, [...] mg q.h.s. A referral to rheumatology near [place] will be sent on her behalf and I highly encouraged her to seek consultation, particularly since she has a familial history of autoimmune diseases. The patient agrees with the plan of care and will be followed up in the office in three months' time. [facility] Signed and Approved by: MICHELE SALDAÑA . 03/02/2022 14:16:00[facility]04-21-2022 NoteCONSULTATION Consultation Date:11/30/2021 PREOPERATIVE DIAGNOSIS: Right gluteal [...] will be followed up in the office. [facility] Signed and Approved by: MICHELE SALDAÑA . 12/06/2021 16:15:00[facility]04-21-2022 NoteCONSULTATION Consultation Date:11/30/2021 PAIN MANAGEMENT CONSULTATION HISTORY [...] her pain are twisting, turning, pushing, pulling, closing manager hours, lifting and transitioning positions. Lying down and using heat decrease her pain. Prior to the procedure, she was in a state of acute pain and was placed on a short term course of [place] 5/325 b.i.d. p.r.n. Patient states she only [...] and Approved by: MICHELE SALDAÑA . 12/06/2021 16:15:00[facility] noteNo InformationNort Inductly Other Evaluation noteNo assessment information available [facility] Work Phone: Evaluation note* Diagnosis Onset Date Resolution Status Lumbar spondylosis acute Preoperative clearance acute Situational depression acute [facility] Work Phone: Evaluation note* Diagnosis Pre-op testing- Primary Preoperative examination, unspecified Chronic right SI joint pain Disorders of sacrum documented [facility] this encounter [facility]* Diagnosis Sacroiliitis (HCC) Sacroiliitis, not elsewhere classified documented in this encounter [facility] [employer]uation note* Diagnosis Left knee pain, unspecified chronicity- Primary Arthritis of left knee documented in this encounter [facility] HealthcareEvaluation note* Diagnosis Left knee pain, unspecified chronicity- Primary Arthritis of left knee documented in this encounter [facility] HealthcareEvaluation note* Diagnosis Arthritis of carpometacarpal (CMC) joint of left thumb- Primary Pain of left thumb Left hand pain Pain in soft tissues of limb documented in this encounter [facility] HealthcareEvaluation note* Diagnosis Arthritis of carpometacarpal (CMC) joint of right thumb- Primary Pain of right thumb Acute pain of left knee Chondromalacia, patella, left documented in this encounter [facility] HealthcareEvaluation note* Diagnosis Arthritis of left knee documented in this encounter [facility] HealthcareEvaluation note* Diagnosis Onset Date Resolution Status Admit Date Collagenous colitis acute Augus 2024 1:29pm Dyspepsia acute March 19 1:29pm GERD (gastroesophageal reflu x disease) acute March 19, 2025 1:29pm Medicare annual wellness vis it, subsequent acute March 19, 2025 1:29pm Osteoarthritis of lumbar spine acute March 19, 2025 1:29pm [facility] Work Phone: History and physical note Author Sunny Torres [facility] October 02, 2023 8:54am Note Date/Time October 02, 2023 8:54am [facility] [address] [place] [address] Gastroenterology H&P Signed Patient: Arianne Ko MR#: [id number] : 1945 Acct:[id number] Age/Sex: 78 / F Adm Date: 4 Loc: Room: Type: [facility] Attending Dr: Sunny Torres MD Copies to: [...] signed by Sunny Torres MD> 10/02/23 0854 [facility] Work Phone: History and physical note Author Sunny Torres [facility] March 20, 2024 8:43am Note Date/Time March 20, 2024 8:4 3am [facility] [address] [place] [address] Gastroenterology H&P Signed Patient: Arianne Ko MR#: [id number] : 1945 Acct:[id number] Age/Sex: 78 / F Adm Date: 4 Loc: Room: Type: [facility] Attending Dr: Sunny Torres MD Copies to: [...] <Electronically signed by Sunny Torres MD> 03/20/2443 [facility] Work Phone: History general Narrative - [...] shoulder pain 1982 Hospitalization History migraines 1992 [employer] Other Hospital Discharge instructions Additional Instructions DISCHARGE [...] up in the office - Office number [phone]. [facility] Work Phone: Reason for referral (narrative)No reason for referral information availablePar[facility] Work Phone: Summary Purpose Family History [...] (K5 2.9) Referral Organization [facility] [employer] Referring Provider First Name Viky Referring Provider Last Name Abdoulaye Referring Provider Specialty [facility] [employer] Referred Organization [facility] Referred Address [address],[address] Referred Provider Specialty Gastroentero logy Referral Priority Routine Reason *FU 09/06 R foot p ain Diagnosis 1 Pain of left great t oe (M79.675) Referral Organization [facility] [employer] Referring Provider First Name Viky Referring Provider Last Name Abdoulaye Referring Provider [facility] [employer] Referred Organization [facility] Referred Provider Odin Cohng Referred Address [address] [place], [place],[address] Referred Provider Specialty Podiatry - S urgical Chiropody Referral Priority Routine General Notes Shefali Carroll 12:44:49 PM >received today, notes locked, ins attached, referral faxed Specialty Diagnoses / Procedures Referred By Fabián martinez Referred To Contact Radiology Diagnoses Sacroiliitis (HCC) Procedures CT PELVIS WO CONTRAST Additional Contrast? None Dany, Echo Mir DO [address] [place] [address] Referral ID Status Reason Start Date Expiration Date Visits Re quested Visits Authorized [id number] Closed 06/24/2024 06/24/2025 1 1 Specialty Diagnoses / Procedures Referred By Fabián martinez Referred To Contact Orthopaedic Surgery Diagnoses Arthritis of left knee Procedures L Inj/Asp: L knee Sarahi, Romelia Keith, OLAP DEVELOPER [address] [facility] [address] [place] [address] Referral ID Status Reason Start Date Expiration Date Visits Re quested Visits Authorized [id number] Closed 04/15/2024 10/12/2024 1 1 Chief Complaint [...] 2024 1:33 pm GERD (gastroesophageal reflux disease) [facility] 2024 1:33pm Chief Complaint Admit Date 6 week follow up September 14, 2024 1 0:47am 1 month follow up October 16, 2024 1:33 pm 5WK F/U GERD November 30, 2024 2:0 4pm Reason for Visit Admit Date Collagenous colitis September 14, 2024 1 0:47am Frequent stools September 14, 2024 1 0:47am Irritable bowel syndrome with diarrhea F [facility]2024 10:47am Collagenous colitis October 16, 2024 1:33 pm GERD (gastroesophageal reflux disease) M [facility] 2024 1:33pm Chief Complaint Admit [...] and content) DATE CREATED AUTHOR 05/09/2022 [facility] DATE CREATED AUTHOR AUTHOR'S ORGANIZ ATION 11/17/2022 [facility] DATE CREATED AUTHOR AUTHOR'S ORGANIZ ATION 04/01/2024 [facility] DATE CREATED AUTHOR AUTHOR'S ORGANIZ ATION 06/14/2024 [facility] DATE CREATED AUTHOR AUTHOR'S ORGANIZ ATION 06/30/2024 [facility] DATE CREATED AUTHOR AUTHOR'S ORGANIZ ATION 08/07/2024 [facility] DATE CREATED AUTHOR AUTHOR'S ORGANIZ ATION 01/08/2025 [facility] EPIC DATE CREATED AUTHOR AUTHOR'S ORGANIZ ATION 03/16/2025 [facility] REASON FOR VISIT (unrecogniz ed section and content) Specialty Diagnoses / Procedures Referred By Fabián t Referred To Contact Radiology Diagnoses Sacroiliitis (HCC) Procedures CT PELVIS WO CONTRAST Additional Contrast? None Ham, Echo Mir, DO [address] [place] [address] Referral ID Status Reason Start Date Expiration Date Visits Re quested Visits Authorized [id number] Closed 06/24/2024 06/24/2025 1 1 Reason Comments [...] Provider Act cara Start: March 20, 2024 Aquatic Instructor Relationship Specialty Start Date End Date Viky Stanford MD [address] [place] [phone] PCP - General Family Medicine 06/02/24 Aquatic Instructor Relationship Specialty Start Date End Date Viky Stanford MD [address] [place] [phone] PCP - General Family Medicine 06/02/24 Aquatic Instructor Relationship Specialty Start Date End Date Viky Stanford MD [address] [place] [phone] PCP - General Family Medicine 12/31/22 Aquatic Instructor Relationship Specialty Start Date End Date Viky Stanford MD [address] [facility] [place] [phone] PCP - General Family Medicine 12/31/22 Aquatic Instructor Relationship Specialty Start Date End Date Viky Stanford MD [address] [facility] [place] [phone] PCP - General Family Medicine 12/31/22 Aquatic Instructor Relationship Specialty Start Date End Date Viky Stanford MD [address] [facility] [place] [phone] PCP - General Family Medicine 12/31/22 Team [...] November 30, 2024 End: November 30, 2024 Aquatic Instructor Relationship Specialty Start Date End Date Viky Stanford MD PCP - General Family Medicine 12/31/22 Aquatic Instructor Relationship Specialty Start Date End Date Viky Stanford MD PCP - [facility] 12/31/22 Aquatic Instructor Relationship Specialty Start Date End Date Viky Stanford MD PCP - [facility] 12/31/22 Aquatic Instructor Relationship Specialty Start Date End Date Viky Stanford MD PCP - [facility] 12/31/22 Team Status: Inactive Member Role [...] BE BASED ON THE PRIMARY CLINICAL RECORDS. [employer] provides no warranty or guarantee of the accuracy or completeness of information in this document.
== END 2025-03-25 08:49 | disposition home or self-care (01) ==
LOC: MRI 08:48
PROVIDERS: PCP Family Medicine; Visit Provider Orthopaedic Surgery Orthopaedic Surgery of the Spine
DX: M54.32 Sciatica, left side (principal); M51.369 Other intervertebral disc degeneration, lumbar region without mention of lumbar back pain or lower extremity pain
CPT/HCPCS: 72148

== ENCOUNTER 2025-04-01 07:39 | Outpatient (RCR) | payer MEDICARE, SELFPAY ==
[2025-03-31 12:20] LABS: Anion Gap 11.4; Blood Urea Nitrogen 20.0 mg/dL (7.0-18.0); Calcium 9.6 mg/dL (8.5-10.1); Carbon Dioxide 27.5 mmol/L (21.0-32.0); Chloride 103 mmol/L (98-107); Estimated GFR (African America >60 (>=60 mL/min/1.73m^2); Estimated GFR (Non-African Ame >60 (>=60 mL/min/1.73m^2); Glucose 93 mg/dL (74-106); Potassium 3.9 mmol/L (3.5-5.1); Sodium 138 mmol/L (136-145)
[2025-04-01 09:50] VITALS: BP 128/79; PULSE 108; TEMP 36.6; O2SAT 95
[2025-04-01] MEDS: DENOSUMAB 60 MG/ML SYRINGE SQ (10:26)
== END 2025-04-11 23:59 | disposition home or self-care (01) ==
LOC: INF 07:39
PROVIDERS: PCP Family Medicine; Visit Provider Family Medicine
DX: M81.0 Age-related osteoporosis without current pathological fracture (principal)
CPT/HCPCS: 36415; 80048; 82306; 96372; J0897

== ENCOUNTER 2025-04-05 14:00 | Outpatient (OUT) | payer MEDICARE, SELFPAY ==
--- NOTE | 2025-04-05 15:17 | P.CN_ITS ---
Consult Note: HPI Data of Consult Patient: known to practice within the last 3 years Consult date: 04/05/25 Requesting Physician: Ara Maier MD Primary Care Provider: Patricia Nicolas MD Consult Narrative Reason for consult: left low back, left knee pain Narrative: 79yof who presents for assessment. continues to have worsening pain in her left low back, she describes as si joint area. also notes persistence of left knee pain, previously had steroid injection with little benefit. uses norco and lyrica. denies adverse med side effects. 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 (ICD-10) Sacroiliac joint pain ?M53.3 - Sacrococcygeal disorders, not elsewhere classified (ICD-10) Sacroiliac joint dysfunction of right side ?M53.3 - Sacrococcygeal disorders, not elsewhere classified (ICD-10) Muscle spasm ?M62.838 - Other muscle spasm (ICD-10) Bilateral sacroiliitis ?M46.1 - Sacroiliitis, not elsewhere classified (ICD-10) Lumbar spondylosis ?M47.816 - Spondylosis without myelopathy or radiculopathy, lumbar region (ICD-10) Chronically on opiate therapy ?Z79.891 - prison (current) use of opiate analgesic (ICD-10) Osteoporosis ?M81.0 - Age-related osteoporosis without current pathological fracture (ICD- 10) Primary osteoarthritis, left ankle and foot ?M19.072 - Primary osteoarthritis, left ankle and foot (ICD-10) Bunionette of left foot ?M21.622 - Bunionette of left foot (ICD-10) Hallux valgus (acquired), left foot ?M20.12 - Hallux valgus (acquired), left foot (ICD-10) Back pain ?M54.9 - Dorsalgia, unspecified (ICD-10) Arthritis ?M19.90 - Unspecified osteoarthritis, unspecified site (ICD-10) Vertigo ?R42 - Dizziness and giddiness (ICD-10) Headache ?R51.9 - Headache, unspecified (ICD-10) Migraine ?G43.909 - Migraine, unspecified, not intractable, without status migrainosus (ICD-10) Multiple fractures ?T07.XXXA - Unspecified multiple injuries, initial encounter (ICD-10) Microscopic colitis ?K52.839 - Microscopic colitis, unspecified (ICD-10) Hiatal hernia ?K44.9 - Diaphragmatic hernia without obstruction or gangrene (ICD-10) Syncopal episodes (2019) ?R55 - Syncope and collapse (ICD-10) Osteopenia ?M85.80 - Other specified disorders of bone density and structure, unspecified site (ICD-10) Osteoarthritis ?M19.90 - Unspecified osteoarthritis, unspecified site (ICD-10) Neck pain ?M54.2 - Cervicalgia (ICD-10) Low back pain ?M54.50 - Low back pain, unspecified (ICD-10) Heartburn ?R12 - Heartburn (ICD-10) Acid reflux ?K21.9 - Gastro-esophageal reflux disease without esophagitis (ICD-10) Surgical History History of bunionectomy ?Z98.890 - Other specified postprocedural states (ICD-10) History of esophagogastroduodenoscopy (EGD) ?Z98.890 - Other specified postprocedural states (ICD-10) History of colonoscopy ?Z98.890 - Other specified postprocedural states (ICD-10) History of carpal tunnel release ?Z98.890 - Other specified postprocedural states (ICD-10) S/P cataract extraction and insertion of intraocular lens ?Z98.49 - Cataract extraction status, unspecified eye (ICD-10) ?Z96.1 - Presence of intraocular lens (ICD-10) History of repair of rotator cuff ?Z98.890 - Other specified postprocedural states (ICD-10) H/O radiofrequency ablation (RFA) of nerve of lumbar spine ?Z98.890 - Other specified postprocedural states (ICD-10) H/O shoulder surgery ?Z98.890 - Other specified postprocedural states (ICD-10) History of ear, nose, and throat (ENT) surgery ?Z98.890 - Other specified postprocedural states (ICD-10) H/O carpal tunnel repair ?Z98.890 - Other specified postprocedural states (ICD-10) H/O wrist surgery ?Z98.890 - Other specified postprocedural states (ICD-10) H/O section ?Z98.891 - History of uterine scar from previous surgery (ICD-10) Family History Other Family history of colon cancer Family history of diabetes mellitus Family history of heart disease Family history of ovarian cancer Family history of prostate cancer Family history of throat cancer Family history of uterine cancer Social History Within the past year, how often did you have a drink containing alcohol: monthly or less Smoking status: Never smoker Non-prescribed substance use: denies use Previous occupational history: retired Known occupational exposures/hazards: No Highest level of school completed/degree received: some college, no degree Little interest or pleasure in doing things: not at all Feeling down, depressed, or hopeless: not at all Meds Home Medications and Allergies Home Medications ?Medication ?Instructions ?Recorded ?Confirmed ?Type denosumab 60 mg/mL subcutaneous 60 mg subcut .[id number] 04/10/23 07/27/24 History syringe (Prolia) geriatric multivitamin-min 1 cap PO DAILY 04/10/23 History magnesium 200 mg tablet 400 mg PO BID 04/10/2307/27 History pantoprazole 40 mg tablet,delayed 40 mg PO DAILY 07/2407/27/24 History release baclofen 10 mg tablet See Rx Instructions .Route 1 09/15/23 07/27/24 Rx .COMPLEX #90 tabs hydrocodone 7.5 mg-acetaminophen 1 tab PO TID PRN pain #90 tabs 07/15/24 07/27/24 Rx 325 mg tablet pregabalin 75 mg capsule (Lyrica) 75 mg PO TID #90 cap s 07/15/24 07/27/24 Rx Allergies Allergy/AdvReac Type Severity Reaction Status Date / Time No Known Drug Allergies Allergy Verified 07/31/24 14:20 Exam Narrative Exam Narrative: Psych-alert and oriented x 3.? Attentive and appropriate, constitutionally normal, displays normal mood and affect per situation.? There are no obvious deficits in memory, reasoning, or intellect. Extremities-lower extremities are warm with minimal edema and palpable pulses. Lumbar-no significant tenderness to palpation noted in the lumbar spine and paraspinal musculature.? Pain is elicited with extension, and lateral rotation of the lumbar spine. Range of motion is slightly diminished with these motions due to pain. Knee-examination of the left knee reveals tenderness to palpation over the superior, inferior, lateral, and medial aspect of the knee.? Some swelling is noted without erythema. Pain is elicited with flexion and extension of the knee both actively and passively.? Some grinding is noted with these motions.? There is no notable ligamental laxity or instability.? Coordination remains intact.? Gait remains antalgic. Assessment and Plan Assessment and Plan (1) Lumbar postlaminectomy syndrome: (2) Lumbar radiculopathy: (3) Left knee pain: Qualifiers: Chronicity: chronic Qualified Code(s): M25.562 - Pain in left knee; G89.29 - Other chronic pain Plan 79yof who presents for assessment. failed conservative measures, as noted. imaging reviewed, which shows left knee osteoarthritis. given symptoms and imaging, prudent to attempt left knee injection with hyaluronic acid. she is in agreement. in terms of low back, she is being worked up by her spinal surgeon with more imaging. she is hoping to avoid more surgery. discussed that depending on surgeon's plan, we could consider interventional modalities, including scs. meds reviewed, no changes. follow up as needed. procedure: left knee injection medications: durolane hyaluronic acid I explained the details of the procedure to the patient including the risks, benefits and alternatives. We had an informed discussion and the patient verbalized understanding and signed the consent form. All questions were answered appropriately.? A time out was performed.? After obtaining a comfortable seated position, the left knee was prepped with alcohol x3. A syringe containing the above medication was attached to a 25 gauge, 1.5 inch needle under strict aseptic technique. The lateral tibial plateau was palpated.? The needle was then advanced through the subcutaneous tissue in a medial and superior direction towards the joint space.? The contents of the syringe were gently injected without any resistance. The needle was removed and pressure was applied to the injection site to decrease the incidence of ecchymosis and hematoma formation.? A sterile bandage was applied.
== END 2025-04-05 14:01 | disposition home or self-care (01) ==
LOC: PM 14:01
PROVIDERS: PCP Family Medicine; Visit Provider Anesthesiology
DX: M96.1 Postlaminectomy syndrome, not elsewhere classified (principal); M54.16 Radiculopathy, lumbar region; M25.562 Pain in left knee; G89.29 Other chronic pain
CPT/HCPCS: 20610; J7318

== ENCOUNTER 2025-06-21 14:55 | Outpatient (RCR) | payer MEDICARE, SELFPAY | END 2025-08-10 07:53 | disposition home or self-care (01) | LOC: OT 14:55 | PROVIDERS: PCP Family Medicine; Visit Provider Orthopaedic Surgery | DX: M18.12 Unilateral primary osteoarthritis of first carpometacarpal joint, left hand (principal) | CPT/HCPCS: 97110; 97140; 97166; 97530 ==